=== PATIENT | female | born 1950 | race Caucasian/White ===

== ENCOUNTER 2023-11-16 07:51 | Outpatient (OUT) | payer MEDICARE, SELFPAY ==
--- NOTE | 2023-11-16 | XR_ITS ---
The [address] [address] Patient Name: ALLAN BREEN MRN: [id number] date: 1950 Sex: F Assigned Patient Location: [facility] Current Patient Location: [facility] Accession/Order Number: [id number] Exam Date: 11/16/2023 08:15 Report Date: 11/16/2023 09:40 At the request of: RACHEL FLORES Procedure: XR abdomen 1V EXAMINATION: XR abdomen 1V HISTORY: KIDNEY STONE COMPARISON: No relevant comparison available. FINDINGS: KIDNEY/URETER - RIGHT: 8.7 mm right nephrolith KIDNEY/URETER - LEFT: No visible renal or ureteral calcifications. PELVIS: No visible ureteral calcifications. Right pelvic calcification, a fibroid is favored. BOWEL: No abnormal dilation or deviation. BONES: No acute abnormality. Severe degenerative spondylosis OTHER: Negative. No abnormal gaseous collections. XR/XR abdomen 1V IMPRESSION: 8.7 mm right nephrolith Electronically authenticated by: LIZBET BRADFORD Date: 11/16/2023 09:40
[2023-11-16 08:29] LABS: Anion Gap 11.1; Carbon Dioxide 25.6 mmol/L (21.0-32.0); Chloride 109 mmol/L (98-107); Potassium 3.7 mmol/L (3.5-5.1); Sodium 142 mmol/L (136-145)
== END 2023-11-16 07:52 | disposition home or self-care (01) ==
LOC: RAD 07:59
PROVIDERS: Visit Provider Urology
DX: N20.0 Calculus of kidney (principal); R31.21 Asymptomatic microscopic hematuria; Z68.31 Body mass index [BMI] 31.0-31.9, adult
CPT/HCPCS: 36415; 74018; 80051

== ENCOUNTER 2023-12-18 09:32 | Outpatient (OUT) | payer MEDICARE, SELFPAY ==
--- OUTSIDE RECORDS SUMMARY | 2023-12-18 09:54 | XMS_ITS | CCD ---
Author Organization [facility] Care Team Providers Care Manager Insurance Name Role Phone Medardo Robles Primary Care Provider SANDRA, DR RAMOS Admitting Unavailable MISC, DR AVILA Primary Care Unavailable SANDRA, DR RAMOS Attending Unavailable SANDRA, DR RAMOS Consulting Unavailable MISC, DR AVILA Primary Care Unavailable SANDRA, DR RAMOS Attending Unavailable SANDRA, DR RAMOS Consulting Unavailable SANDRA, DR RAMOS Admitting Unavailable ZIEBER, DR ANDREW Peña Consulting Unavailable Medardo Robles MD Primary Care Provider Medardo Robles MD Primary Care Provider Medardo Robles MD Primary Care Provider Medardo Robles MD Primary Care Provider ADELE ATISH P Admitting Unavailable MEDARDO ROBLES Primary Care Unavailable Medardo Robles MD Primary Care Provider MEDARDO ROBLES Primary Care Physician [phone] XIMENA ARCHULETA Attending Unavailable MEDARDO ROBLES Primary Care Unavailable XIMENA ARCHULETA Attending Unavailable MEDARDO ROBLES Primary Care Unavailable XIMENA ARCHULETA Attending Unavailable MEDARDO ROBLES Primary Care Unavailable MEDARDO ROBLES Primary Care Unavailable SJ KELLY Attending Unavaila ble ADELE, ATISH P Referring Unavailable ADELE, ATISH P Attending Unavailable MEDARDO ROBLES Primary Care Unavailable MEDARDO ROBLES Primary Care Unavailable MEDARDO ROBLES Primary Care Unavailable MEDARDO ROBLES Primary Care Unavailable ADELE, ATISH P Attending Unavailable ADELE, ATISH P Admitting Unavailable TK ROBLESCY L. Primary Care Unavailable RACHEL FLORES Referring Unavailable VERHOFF, MEDARDO L Primary Care Unavailable VIGESAA, KYEL S Referring Unavailable VERHOFF, MEDARDO L Primary Care Unavailable VIGESAA, KYLE S Referring Unavailable VERHOFF, MEDARDO L Primary Care Unavailable CLINGMAN, JESSICA A Referring Unavailable VERHOFF, MEDARDO L Primary Care Unavailable VERHOFF, MEDARDO L Attending Unavailable VERHOFF, MEDARDO L Referring Unavailable VERHOFF, MEDARDO L Primary Care Unavailable VIGESAA, KYLE S Attending Unavailable VIGESAA, KYLE S Referring Unavailable VERHOFF, MEDARDO L Primary Care Unavailable CLINGMAN, JESSICA A Referring Unavailable VERHOFF, MEDARDO L Primary Care Unavailable Rachel FLORES Attending Unavailable Rachel FLORES Attending Unavailable Rachel FLORES Attending Unavailable Allergies Allergy Classification Reported Allergen(s) Allergy Type Date of Onset Reaction(s) Facility (20 sources) Penicillins; Translations: [PENICILLINS] Propensity to adverse reactions to drug 1 Nausea And Vomiting, Unknown (qualifier value) [place], [place] (16 sources) Sulfonamides (Antibiotic) Propensity to adverse reactions to drug 1 Nausea And Vomiting [place], [place] (1 source) Penicillin Drug Allergy 7 [facility] (1 source) Sulfonamides (Antibiotic) Drug allergy (disorder) 7 [facility] (20 sources) Penicillins Propensity to adverse reactions to drug 1 Other (See Comments), Nausea And Vomiting [facility] (20 sources) Sulfonamides (Antibiotic); Translations: [SULFA (SULFONAMIDE ANTIBIOTICS)] Propensity to adverse reactions to drug 1 Other (See Comments), Nausea And Vomiting [facility] (3 sources) Sulfonamides (Antibiotic); Translations: [sulfa drugs] Drug allergy Unknown (qualifier value) [facility] Medications Current Medications Medication Drug Class(es) Dates Sig (Normalized) Sig (Original) alendronic acid 70 mg oral tablet (20 sources) Bisphosphonate Start: 04-14-2019 alendronate 70 mg oral tablet 70 mg = 1 tab(s), Oral, q7day, # 4 tab(s), Refills(s) 0 Start Date: 05/19/19 Status: Ordered allopurinol 100 mg oral tablet (20 sources) Xanthine Oxidase Inhibitor Start: 06-16-2019 End: 09-15-2022 take 1 tablet by mouth once daily allopurinol (ZYLOPRIM) 100 MG tablet TAKE 1 TABLET BY MOUTH EVERY DAY 90 tablet 1 09/01/2022 Active amoxicillin 500 mg oral capsule (1 source) Penicillin-class Antibacterial End: 11-13-2022 take 4 capsules by mouth once, then take 4 capsules by mouth every hour amoxicillin (AMOXIL) 500 MG capsule Take 4 (four) capsules (2,000 mg total) by mouth once Take 4 capsules (2,000 mg) 1 hour prior to dental appointment. . 0 11/13/2022 Discontinued (Allergic response) bepotastine besilate 15 mg/ml ophthalmic solution (2 sources) Histamine-1 Receptor Antagonist Start: 10-20-2020 take 1 drop(s) into the eye(s) twice daily Bepotastine Besilate 1.5 % SOLN 1 drop each eye BID 5 mL 1 10/20/2020 Active cephalexin 500 mg oral capsule (1 source) Cephalosporin Antibacterial End: 11-13-2022 take 4 capsules by mouth every hour cephALEXin (KEFLEX) 500 MG capsule Take 4 (four) capsules (2,000 mg total) by mouth once 1 hour prior to dental work . 0 11/13/2022 Discontinued (Allergic response) ciprofloxacin 500 mg oral tablet (5 sources) Quinolone Antimicrobial Start: 11-03-2022 End: 11-10-2022 take 1 tablet by mouth twice daily ciprofloxacin (CIPRO) 500 MG tablet Take 1 tablet by mouth 2 times daily for 7 days 14 tablet 0 11/03/2022 11/10/2022 Active Start: 08-24-2021 End: 08-31-2021 take 1 tablet by mouth twice daily ciprofloxacin (CIPRO) 500 MG tablet Take 1 tablet by mouth 2 times daily for 7 days 14 tablet 0 08/24/2021 08/31/2021 Active Start: 02-28-2021 End: 03-07-2021 take 1 tablet by mouth twice daily ciprofloxacin (CIPRO) 500 MG tablet Take 1 tablet by mouth 2 times daily for 7 days 14 tablet 0 02/28/2021 03/07/2021 Active Start: 03-08-2020 End: 03-15-2020 take 1 tablet by mouth twice daily ciprofloxacin (CIPRO) 500 MG tablet Indications: Complicated UTI (urinary tract infection) Take 1 tablet by mouth 2 times daily for 7 days 14 tablet 0 03/08/2020 03/15/2020 Active clopidogrel 75 mg oral tablet (17 sources) [id number] Platelet Inhibitor Start: 09-16-2022 End: 03-20-2023 take 1 tablet by mouth once daily clopidogreL (PLAVIX) 75 mg tablet Take 1 (one) tablet (75 mg total) by mouth daily Start: 09/16/22. 30 tablet 3 09/16/2022 03/20/2023 Discontinued (Therapy completed) Start: 09-15-2022 End: 09-15-2022 take 75 mg by mouth once daily 75 mg, Oral, Daily, Fir st dose on Sun09/15/22 at 0900 Start: 08-28-2022 End: 09-15-2022 clopidogreL (PLAVIX) 75 mg t ablet Take 300 mg (4 tablets) the evening prior to your procedure, then take 75 mg (1 tablet) daily starting the morning of your procedure. . 94 tablet 1 08/28/2022 09/15/2022 Discontinued (Stop Taking at Discharge) End: 08-28-2022 take 1 tablet by mouth once daily clopidogreL (PLAVIX) 75 mg tablet Take 1 (one) tablet (75 mg total) by mouth daily . 0 08/28/2022 Discontinued (Reorder (Suppress CancelRx Message to Pharmacy)) colchicine 0.6 mg oral tablet (20 sources) Start: 03-21-2022 take 1 tablet by mouth once daily colchicine (COLCRYS) 0.6 MG tablet Take 1 tablet by mouth daily 20 tablet 1 03/21/2022 Active 24 hr dilTIAZem hydrochloride 120 mg extended release oral capsule (20 sources) Calcium Channel Brice Start: 05-19-2019 Cartia XT 120 mg/24 hours oral capsule, extended release Refills(s) 0 Start Date: 05/19/19 Status: Ordered Start: 07-15-2018 End: 09-15-2022 take 1 capsule by mouth once daily dilTIAZem (CARDIZEM CD) 120 MG extended release capsule TAKE 1 CAPSULE BY MOUTH EVERY DAY 90 capsule 3 01/18/2022 Active doxycycline hyclate 100 mg oral capsule (3 sources) Tetracycline-class Drug Start: 11-13-2022 End: 11-13-2022 take 1 capsule by mouth every hour doxycycline hyclate (VIBRAMYCIN) 100 MG capsule Take 1 (one) capsule (100 mg total) by mouth once 1 hour prior to dental appointment for 1 dose . 1 capsule 0 11/13/2022 11/13/2022 Active Start: 07-11-2021 take 1 capsule by [facility] once daily doxycycline hyclate 100 mg Cap 100 mg = 1 cap(s), Oral, Daily, Take 1 pill the day before the procedure and 1 pill after the procedure, # 2 cap(s), Refills(s) 0, [facility]: [facility], 163, cm, 07/11/21 11:42:00 EST, Height/Length Dosing, 84.1, kg, 07/11/21 11:42:00 E... Start Date: 07/11/21 Status: Ordered hydroCHLOROthiazide 50 mg oral tablet (20 sources) Thiazide Diuretic Start: 11-16-2023 take 1 tablet by mouth once daily hydrochlorothiazide 50 mg Tab 50 mg = 1 tab(s), Oral, Daily, # 90 tab(s), Refills(s) 3, [facility]: [id number], 163, cm, 11/16/23 10:15:00 EDT, Height/Length Dosing, 82.7, kg, 11/16/23 10:15:00 EDT, Weight Dosing Start Date: 11/16/23 Status: Ordered Start: 07-11-2021 take 1 tablet by [facility] once daily hydroCHLOROthiazide (HYDRODIURIL) 50 MG tablet Take 1 tablet by mouth daily 0 10/19/2022 Active Start: 01-11-2015 End: 09-15-2022 take 1 tablet by mouth once daily hydrochlorothiazide 25 mg Tab 25 mg = 1 tab(s), Oral, Daily, # 90 tab(s), Refills(s) 3, [facility]: [facility], 163, cm, 04/04/21 11:03:00 EST, Height/Length Dosing, 84, kg, 04/04/21 11:03:00 EST, Weight Dosing Start Date: 04/04/21 Status: Ordered lisinopril 5 mg oral tablet (20 sources) Angiotensin Converting Enzyme Inhibitor Start: 08-26-2018 End: 09-15-2022 lisinopril 5 mg Tab Refills(s) 0 Start Date: 05/19/19 Status: Ordered 24 hr metoprolol succinate 50 mg extended release oral tablet (20 sources) beta-Adrenergic Brice Start: 05-19-2019 take 1 tablet by mouth twice daily metoprolol 50 mg ER Tab 50 mg = 1 tab(s), Oral, BID, Refills(s) 0 Start Date: 05/19/19 Status: Ordered Start: 02-17-2019 End: 09-15-2022 take 1 tablet by mouth twice daily metoprolol tartrate (LOPRESSOR) 50 MG tablet TAKE 1 TABLET BY MOUTH TWO TIMES A DAY 180 tablet 0 08/07/2022 Active rivaroxaban 20 mg oral tablet (20 sources) Factor Xa Inhibitor Start: 07-26-2021 take 1 tablet by mouth once daily at breakfast rivaroxaban (XARELTO) 20 MG TABS tablet TAKE ONE TABLET BY MOUTH DAILY WITH BREAKFAST 90 tablet 3 07/26/2021 Active Start: 04-18-2021 take 1 tablet by [facility]pe [facility] once daily at breakfast rivaroxaban (XARELTO) 20 MG TABS tablet TAKE ONE TABLET BY MOUTH DAILY WITH BREAKFAST 90 tablet 0 04/18/2021 Active Start: 01-14-2021 take 1 tablet by lupe th once daily at breakfast rivaroxaban (XARELTO) 20 MG TABS tablet TAKE 1 TABLET BY MOUTH EVERY DAY WITH BREAKFAST 90 tablet 0 01/14/2021 Active Start: 08-12-2019 take 1 tablet by lupe th once daily at breakfast rivaroxaban (XARELTO) 20 MG TABS tablet TAKE 1 TABLET BY MOUTH ONCE A DAY WITH BREAKFAST 90 tablet 3 08/12/2019 Active Start: 04-18-2018 take 1 tablet by lupe th once daily at breakfast rivaroxaban (XARELTO) 20 MG TABS tablet TAKE 1 TABLET BY MOUTH ONCE A DAY WITH BREAKFAST 30 tablet 1 04/21/2019 Active End: 09-15-2022 take 1 tablet by mouth once rivaroxaban (Xarelto) 15 m g Tab Take 1 (one) tablet (15 mg total) by mouth once . 0 09/15/2022 Discontinued (Stop Taking at Discharge) vitamin d 1000 unt oral tablet (4 sources) take 1 tablet by lupe [facility] once daily vitamin D (CHOLECALCIFEROL) 1000 UNIT TABS tablet Take 1,000 Units by mouth daily. 0 Active Completed/Discontinued Medications Medication Drug Class(es) Dates Sig (Normalized) Sig (Original) acetaminophen 325 mg oral tablet (1 source) Start: 09-14-2022 End: 09-15-2022 take 1 tablet by mouth every four hours as needed for pain and headache 650 mg, Oral, Every 4 hours PRN, mild pain, fever 100.4 F or greater, headaches, Starting on Sun09/14/22 at 1517 aluminum hydroxide 40 mg/ml / magnesium hydroxide 40 mg/ml / simethicone 4 mg/ml oral suspension (1 source) Start: 09-14-2022 End: 09-15-2022 take 30 mL by mouth every four hours as needed 30 mL, Oral, Every 4 hours PRN, indigestion, Starting on Sun09/14/22 at 1517 aspirin 81 mg delayed release oral tablet (20 sources) Platelet Aggregation Inhibitor, Nonsteroidal Anti-inflammatory Drug Start: 09-15-2022 End: 09-15-2022 take 81 mg by mouth once daily 81 mg, Oral, Daily, First dose on Sun09/15/22 at 0900 DO NOT CRUSH OR CHEW. Start: 05-19-2019 aspirin 81 mg oral tablet Refills(s) 0 Start Date: 05/19/19 Status: Ordered calcium chloride 0.0014 meq/ml / potassium chloride 0.004 meq/ml / sodium chloride 0.103 meq/ml / sodium lactate 0.028 meq/ml injectable solution (1 source) Start: 09-14-2022 End: 09-15-2022 take 50 mL intravenously every hour 50 mL/hr, Intravenous, Continuous, Starting on Sun09/14/22 at 1515, PACU (only) cholecalciferol 0.025 mg oral tablet (20 sources) Vitamin D Start: 09-14-2022 End: 09-15-2022 take 1000 [IU] by mouth once daily 1,000 Units, Oral, Daily, First dose on Sun09/14/22 at 1700 50 ml clindamycin 18 mg/ml injection (2 sources) Lincosamide Antibacterial Start: 09-14-2022 End: 09-14-2022 900 mg, Intravenous, at 100 mL/hr, Once, On Emily 09/14/22 at 1700, For 1 dose Initiate 6 hours after start of pre-procedure dose. Indication (POST PROCEDURE): Cardiothoracic Start: 09-14-2022 End: 09-15-2022 clindamycin (CLEOCIN) IVPB 9 00 mg (premix) K-Effervescent 25 mEq oral tablet, effervescent (1 source) Start: 11-16-2023 take 1 tablet by mouth twice daily K-Effervescent 25 mEq oral tablet, effervescent 25 mEq = 1 tab(s), Oral, BID, MELVIN, # 60 tab(s), Refills(s) 11, Pharmacy: [id number], 163, cm, 11/16/23 10:15:00 EDT, Height/Length Dosing, 82.7, kg, 11/16/23 10:15:00 EDT, Weight Dosing Start Date: 11/16/23 Status: Ordered potassium bicarbonate 20 meq effervescent oral tablet (1 source) Start: 11-01-2021 take 1 tablet by mouth twice daily potassium bicarbonate 20 mEq oral tablet, effervescent 20 mEq = 1 tab(s), Oral, BID, # 60 tab(s), Refills(s) 11, Pharmacy: [facility], 163, cm, 07/26/21 10:30:00 EST, Height/Length Dosing, 84.1, kg, 07/11/21 11:42:00 EST, Weight Dosing Start Date: 11/01/21 Status: Ordered microencapsulated potassium chloride 20 meq extended release oral tablet (20 sources) Start: 01-18-2022 End: 09-15-2022 20 mEq, Oral, Daily, First dose on Emily 09/14/22 at 1700 DO NOT CRUSH OR CHEW (if instructed may dissolve tablet(s) in liquid) DO NOT ADMINISTER DISSOLVED TABLET VIA SURGICALLY PLACED TUBE OR TUBE less than 14 [place]. To administer dissolved tablet(s) mix with 4 ounces of water over 2-3 minutes, stir for 30 seconds prior to administration; rinse dosing cup and administer residual medication to ensure full dose given Start: 04-18-2021 take 1 tablet by lupe [facility] once daily potassium chloride (KLOR-CON M) 20 MEQ extended release tablet TAKE 1 TABLET BY MOUTH EVERY DAY 90 tablet 0 07/14/2021 Active Start: 01-14-2021 take 1 tablet by lupe [facility] once daily potassium chloride (KLOR-CON M) 20 MEQ extended release tablet TAKE 1 TABLET BY MOUTH EVERY DAY 90 tablet 0 01/14/2021 Active Start: 08-12-2019 take 1 tablet by [facility]pe [facility] once daily potassium chloride (KLOR-CON M) 20 MEQ extended release tablet TAKE 1 TABLET BY MOUTH ONE TIME A DAY 90 tablet 3 08/12/2019 Active Start: 09-12-2018 take 1 tablet by lupe th once daily potassium chloride (KLOR-CON M) 20 MEQ extended release tablet TAKE 1 TABLET BY MOUTH ONE TIME A DAY 30 tablet 10 09/12/2018 Active End: 09-07-2023 take 1 tablet by mouth every other day potassium chloride SA (K-DUR,KLOR-CON) 20 MEQ tablet Take 1 (one) tablet (20 mEq total) by mouth every other day . 0 09/07/2023 Discontinued (Formulary change) take 1 tablet by lupe th twice daily potassium chloride SA (K-DUR,KLOR-CON) 20 MEQ tablet Take 1 (one) tablet (20 mEq total) by mouth 2 (two) times a day . 0 Active 1000 ml sodium chloride 9 mg/ml injection (3 sources) Start: 09-14-2022 End: 09-15-2022 take 75 mL intravenously every hour 75 mL/hr, Intravenous, Continuous, Starting on Emily 09/14/22 at 1615, For 4 hours Start: 09-14-2022 End: 09-15-2022 sodium chloride 0.9% (NS) Problems Active Problems Problem Classification Problem Date Documented Date Episodic/Chronic Calculus of urinary tract (20 sources) Kidney stone; Translations: [Calculus of kidney] Onset: 12-28-2010 12-28-2010 Episodic Cardiac dysrhythmias (20 sources) Atrial fibrillation; Translations: [Unspecified atrial fibrillation] Onset: 12-28-2010 Resolved: 06-15-2016 12-28-2010 Chronic Chronic kidney disease (7 sources) Chronic kidney disease stage 5; Translations: [Chronic kidney disease, stage 5] Onset: 10-20-2020 Resolved: 10-20-2020 10-20-2020 Chronic Disorders of lipid metabolism (20 sources) Hyperlipidemia; Translations: [Hyperlipidemia, unspecified] Onset: 12-28-2010 12-28-2010 Chronic Diverticulosis and diverticulitis (17 sources) Diverticular disease; Translations: [Diverticulosis of intestine, part unspecified, without perforation or abscess without bleeding] Onset: 06-14-2015 06-14-2015 Chronic Essential hypertension (20 sources) Hypertensive disorder; Translations: [Essential hypertension] Onset: 12-28-2010 Resolved: 05-12-2015 05-12-2015 Chronic Genitourinary symptoms and ill-defined conditions (11 sources) Dysuria; Translations: [Dysuria] Onset: 04-09-2021 Episodic Heart valve disorders (20 sources) Mitral valve regurgitation; Translations: [Nonrheumatic mitral (valve) insufficiency] Onset: 12-04-2013 12-04-2013 Chronic Nutritional deficiencies (20 sources) Vitamin D deficiency; Translations: [Vitamin D deficiency, unspecified] Onset: 09-29-2016 09-29-2016 Chronic Osteoporosis (17 sources) Osteoporosis; Translations: [Age-related osteoporosis without current pathological fracture] Onset: 05-12-2015 05-12-2015 Chronic Other aftercare (2 sources) Long-term current use of anticoagulant 04-02-2020 Episodic Other circulatory disease (7 sources) Device in situ; Translations: [Presence of other cardiac implants and grafts] Onset: 09-14-2022 09-14-2022 Chronic Other circulatory disease (9 sources) Presence of other cardiac implants and grafts; Translations: [Other specified cardiac device in situ] Onset: 09-14-2022 09-14-2022 Chronic Other diseases of kidney and ureters (1 source) Acquired renal cyst without neoplastic change; Translations: [Cyst of kidney, acquired] Onset: 11-17-2022 Episodic Other diseases of kidney and ureters (2 sources) Cyst of kidney 11-17-2022 Episodic Other nutritional; endocrine; and metabolic disorders (1 source) Obese class I; Translations: [Body mass index (BMI) 31.0-31.9, adult] Onset: 11-17-2022 Chronic Other nutritional; endocrine; and metabolic disorders (2 sources) Body mass index 30+ - obesity 11-17-2022 Chronic Residual codes; unclassified (1 source) Patient encounter status; Translations: [Other specified health status] Onset: 11-17-2022 Episodic Unclassified (2 sources) Asymptomatic microscopic hematuria 04-02-2020 Unclassified (2 sources) Long-term current use of aspirin 04-02-2020 Unclassified (2 sources) Non-smoker 11-17-2022 Unclassified (4 sources) Chronic atrial fibrillation, unspecified; Translations: [Chronic atrial fibrillation, unspecified] Onset: 11-06-2022 Urinary tract infections (7 sources) Urinary tract infectious disease; Translations: [Urinary tract infection, site not specified] Onset: 12-28-2010 01-25-2015 Episodic Urinary tract infections (9 sources) Sepsis due to urinary tract infection; Translations: [Sepsis due to urinary tract infection] Onset: 12-28-2010 01-25-2015 Past or Other Problems Problem Classification Problem Date Documented Da te Episodic/Chronic Anal and rectal conditions (17 sources) Rectal polyp; Translations: [Rectal polyp] Onset: 06-14-2015 06-14-2015 Episodic Cardiac dysrhythmias (17 sources) Palpitations; Translations: [Palpitations] Resolved: 05-08-2016 05-08-2016 Episodic Nonmalignant breast conditions (20 sources) Solitary cyst of breast; Translations: [Atypical hyperplasia of breast] Onset: 11-11-2012 11-11-2012 Episodic Other aftercare (1 source) [facility] (current) use of anticoagulants; Translations: [DUPLICATE MAKER CURRNT USE ANTICOAGULANTS] Onset: 04-09-2021 Episodic Other connective tissue disease (1 source) Pain in toe Episodic Other screening for suspected conditions (not mental disorders or infectious disease) (13 sources) Increased glucose level; Translations: [Patient encounter status] Onset: 06-14-2015 Resolved: 02-14-2018 02-14-2018 Episodic Septicemia (except in labor) (7 sources) Sepsis due to urinary tract infection; Translations: [Sepsis, unspecified organism] Onset: 12-28-2010 Resolved: 11-03-2022 01-25-2015 Episodic Unclassified (10 sources) Patient encounter status; Translations: [Encounter for screening colonoscopy] Onset: 06-14-2015 Resolved: 02-14-2018 02-14-2018 Results Test Name Value Interpretation Reference Range Facility Ambulatory Visit Summaryon 0 11-16-2023 Ambulatory Visit Summary Ambulatory Visit Summary SAPNA BREEN :1950 Visit Date:11/16/2023 Ambulatory Visit Instructions Your Diagnosis Kidney stone Your Care Team Attending Physician - SANDRA SAMSON, Rachel Peña Primary Care Physician - CONNER SAMSON, MEDARDO Rubio This Is Your Medications List hydrochlorothiazide (hydrochlorothiazide 50 mg Tab) potassium chloride (Klor-Con 20 mEq oral powder for reconstitution) Contact prescribing physician if questions or concerns alendronate (alendronate 70 mg oral tablet) aspirin (aspirin 81 mg oral tablet) diltiazem (Cartia XT 120 mg/24 hours oral capsule, extended release) lisinopril (lisinopril 5 mg Tab) metoprolol (metoprolol 50 mg ER Tab) Procedures Performed Procedure on heart valve (09/14/2021), Lithotripsy of kidney (05/21/2010), Cystoscopy, ESWL of kidney, ESWL of kidney, Watchman. Discharge Vitals Heart Rate (Peripheral) 80 Respiratory Rate 16 Blood Pressure 138/83 Height 163 cm Height 64 in Weight 82.7 kg Weight 181.94 lb BMI 31.13 What to do next You Need to Schedule the Following Appointments Follow Up with SANDRA SAMSON, Rachel Peña, [place] When: Where: [address] [place] [address]- Medications What How Much When Instructions Unchanged hydrochlorothiazide (hydrochlorothiazide 50 mg Tab) 1 Tablets By Mouth Every day Unchanged potassium chloride (Klor-Con 20 mEq oral powder for reconstitution) 1 Each By Mouth 2 times a day Duration: 30 Days Unchanged alendronate (alendronate 70 mg oral tablet) 1 Tablets By Mouth Every 7 days Contact prescribing physician if questions or concerns Unchanged aspirin (aspirin 81 mg oral tablet) Contact prescribing physician if questions or concerns Unchanged diltiazem (Cartia XT 120 mg/ 24 hours oral capsule, extended release) Contact prescribing physician if questions or concerns Unchanged lisinopril (lisinopril 5 mg Tab) Contact prescribing physician if questions or concerns Unchanged metoprolol (metoprolol 50 mg ER Tab) 1 Tablets By Mouth 2 times a day Contact prescribing physician if questions or concerns Allergies penicillins (Unknown) sulfa drugs (Unknown) Problems Ongoing - Any problem that you are currently receiving treatment for. Anticoagulant long-term use Aspirin long-term use Asymptomatic microscopic hematuria Atrial fibrillation BMI 31.0-31.9,adult Gross hematuria Kidney stone Non-smoker Renal cyst UTI (urinary tract infection) Patient Survey You may receive a survey via text or e-mail asking about your office visit. Please share your experience with us by completing your survey. We appreciate your feedback and thank you for choosing us for your care. Education Materials Dietary Guidelines to Help Prevent Kidney Stones Kidney stones are deposits of minerals and salts that form inside your kidneys. Your risk of developing kidney stones may be greater depending on your diet, your lifestyle, the medicines you take, and whether you have certain medical conditions. Most people can lower their risks of developing kidney stones by following these dietary guidelines. Your dietitian may give you more specific instructions depending on your overall health and the type of kidney stones you tend to develop. What are tips for following this plan? Reading food labels ? Choose foods with no salt added or low-salt labels. Limit your salt (sodium) intake to less than 1,500 mg a day. ? Choose foods with calcium for each meal and snack. Try to eat about 300 mg of calcium at each meal. Foods that contain 200?500 mg of calcium a serving include: ? 8 oz (237 mL) of milk, [id number] iry milk, and calcium-fortifiedfruit juice. Calcium-fortified means that calcium has been added to these drinks. ? 8 oz (237 mL) of kefir, yogurt, and soy yogurt. ? 4 oz (114 g) of tofu. ? 1 oz (28 g) of cheese. ? 1 cup (150 g) of dried figs. ? 1 cup (91 g) of cooked broccoli. ? One 3 oz (85 g) can of sardines or mackerel. Most people need 1,000?1,500 mg of calcium a day. Talk to your dietitian about how much calcium is recommended for you. Shopping ? Buy plenty of fresh fruits and vegetables. Most people do not need to avoid fruits and vegetables, even if these foods contain nutrients that may contribute to kidney stones. ? When shopping for convenience foods, choose: ? Whole pieces of fruit. ? Pre-made salads with dressing on the side. ? Low-fat fruit and yogurt smoothies. ? Avoid buying frozen meals or prepared deli foods. These can be high in sodium. ? Look for foods with live cultures, such as yogurt and kefir. ? Choose high-fiber grains, such as whole-wheat breads, oat bran, and wheat cereals. Cooking ? Do not add salt to food when cooking. Place a salt shaker on the table and allow each person to add their own salt to taste. ? Use vegetable protein, such as beans, textured (more content not included)... Normal [facility] Urology Office/Clinic Noteon 11-16-2023 Urology Office/Clinic Note Urology Office/Clinic Note Chief Complaint 1yr HPI Staff 1yr KUB & Electrolytes DX: Kidney Stone & Renal Cyst *Started on Effer K 25meq (Klor Con 20meq sent to pharmacy) BID at time of last encounter. Continues HCTZ 50mg qd therapy. Denies flank pain since last encounter. Denies urinary sx. No concerns at this time, other than reviewing results. Electrolytes 11/16/23 *elevated CL. All others WNL KUB 11/16/23 *8.7 mm Rt Kidney Stone History of Present Illness Tests reviewed: reviewed UA, labs, and KUB. I have reviewed the previous health record information and history for this patient from Dr. Flores. I have reviewed and verified the staff HPI to be accurate for this encounter. There have been no associated fever, chills, flank pain, or blood in the urine. Denies any urinary infections since last encounter. Review of Systems PHQ Score Initial Depression Screen Score: 0 SCORE ROS - Provider Constitutional: denies weight loss, denies hot flashes. Eyes: denies eye problems. Gastrointestinal: denies nausea, denies vomiting. Cardiovascular: denies chest pain or angina. Integumentary: no dryness Musculoskeletal: denies musculoskeletal symptoms. ENMT: denies otolaryngeal symptoms. Respiratory: no shortness of breath. Heme/Lymph: denies easy bleeding tendency, denies easy bruising tendency. Psychiatric: no confusion, no anxiety. Genitourinary: See HPI. Physical Exam Vitals & Measurements HR: 80(Peripheral) RR: 16 BP: 138/83 HT: 64 in HT: 163 cm WT: 82.7 kg WT: 181.94 lb BMI: 31.13 General Appearance: alert , no acute distress, well nourished, well developed female. Assessment/Plan 1. Kidney stone (N20.0: Calculus of kidney) Taking HCTZ 50mg qd. Pt has been prescribed Effer-K 25mEq bid in the past but did not pick it up due to cost. Advised pt at last visit to use a Good Rx card. Insurance would not cover so pt was switched to Klor-Con 20 mEq bid (powder). Electrolytes 11/16/23 Na and K normal. After checking gray on GoodRx for Effer-K 25mEq bid at [place], it should only be $15-16. Will switch pt back to Effer-K 25mEq bid for appropriate stone prevention. Reports she tries to drink enough water, unsure of volume. CT AP w IV con 07/13/21 [facility] - no large or obstructing urinary tract calculi. KUB 11/16/23 [facility] - 8.7 mm R stone. Surgical management is recommended given the size. Pt elects to proceed. Will schedule R ESWL. -D/c Klor-Con -Start Effer-K 25mEq bid MELVIN, use GoodRx -90oz of water daily -Will schedule R ESWL. The procedure risks, benefits, details and treatment alternatives have been discussed with the patient. These include blood in the urine, infection, bleeding around the kidney, kidney bruising, inability to break up the stone, need for blood transfusion, blockage from stone fragments, and need for additional procedures, among others. Full informed consent has been obtained. Will order General anesthesia. Follow-up With When Contact Information SANDRA SAMSON, Rachel Peña, [place] [phone]- Additional Instructions: Sched R ESWL Patient Education Dietary Guidelines to Help Prevent Kidney Stones IKristina, personally scribed for Dr. Flores on 11/16/2023 10:53:52. . Documentation recorded by the scribeKristina, accurately reflects the services(s) I performed and decisions made by me. Authenticated by Dr. Flores on 11/16/2023 10:58:37. Problem List/Past Medical History Ongoing Anticoagulant long-term use Aspirin long-term use Asymptomatic microscopic hematuria Atrial fibrillation BMI 31.0-31.9,adult Gross hematuria Kidney stone Non-smoker Renal cyst UTI (urinary tract infection) Historical No qualifying data Procedure/Surgical History Procedure on heart valve (09/14/2021), Lithotripsy of kidney (05/21/2010), Cystoscopy, ESWL of kidney, ESWL of kidney, Watchman. Medications alendronate 70 mg oral tablet, 70 mg= 1 tab(s), Oral, q7day aspirin 81 mg oral tablet Cartia XT 120 mg/24 hours oral capsule, extended release hydrochlorothiazide 50 mg Tab, 50 mg= 1 tab(s), Oral, Daily, 11 refills Klor-Con 20 mEq oral powder for reconstitution, 20 mEq= 1 EA, Oral, BID, 11 refills lisinopril 5 mg Tab metoprolol 50 mg ER Tab, 50 mg= 1 tab(s), Oral, BID Allergies penicillins (Unknown) sulfa drugs (Unknown) Social History Alcohol - Denies Alcohol Use, 04/02/2020 Tobacco - Denies Tobacco Use, 04/02/2020 Never (less than 100 in lifetime) Tobacco Use:. Never Smokeless Tobacco Use:. Household tobacco concerns: No. Yes, 11/16/2023 Family History Unable to obtain family history Immunizations Vaccine Date Status Comments diphtheria/pertussis, acel/tetanus adult 06/30/2022 Recorded influenza virus vaccine, inactivated 02/16/2022 Recorded SARS-CoV-2 (COVID-19) [id number] 02/16/2022 Recorded pneumococcal 20-valent co (more content not included)... Normal [facility] Comment on above: Result Comment: Elec tronically Signed By: Rachel FLORES MD\.br\Date and Time Signed: 11/16/23 10:58 EDT\.br\Electronically Co-Signed By: Kristina Raymundo.br\Date and Time Co-Signed: 11/16/23 10:54 EDT Cult,Urineon 11-08-2023 Cult,Urine Specimen Description .CLEAN CATCH URINE Special Requests Site: Urine Culture ESCHERICHIA COLI >100,000 CFU/ML Report Status FINAL 11/08/2023 SUSCEPTIBILITY Organism ESCHERICHIA COLI Method NANCY Ampicillin >=32 RESISTANT Cefazolin 8 SUSCEPTIBLE Cefazolin sensitivity results can be used to predict the effectiveness of oral cephalosporins (eg. Cephalexin) in uncomplicated Urinary Tract Infections due to E. coli, K. pneumoniae, and P. mirabilis Ceftriaxone <=0.25 SUSCEPTIBLE ESBL NEGATIVE Gentamicin >=16 RESISTANT Levofloxacin <=0.12 SUSCEPTIBLE Nitrofurantoin <=16 SUSCEPTIBLE Piperacillin/Tazobactam 64 INTERMEDIATE Tobramycin 4 SUSCEPTIBLE Trimethoprim/Sulfa >=320 RESISTANT Resistant [facility] Comment on above: Performed By: #### U RC #### [address] [address] [place], [place] [id number] Sewing Machine Operator: Drew Craven MD [facility] [address] [place] [address] Sewing Machine Operator: Lazarus Gan MD Cult,Urineon 10-07-2023 Cult,Urine Specimen Description .CLEAN CATCH URINE Culture ESCHERICHIA COLI >100,000 CFU/ML Report Status FINAL 10/07/2023 SUSCEPTIBILITY Organism ESCHERICHIA COLI Method NANCY Ampicillin >=32 RESISTANT Cefazolin 8 SUSCEPTIBLE Cefazolin sensitivity results can be used to predict the effectiveness of oral cephalosporins (eg. Cephalexin) in uncomplicated Urinary Tract Infections due to E. coli, K. pneumoniae, and P. mirabilis Ceftriaxone <=0.25 SUSCEPTIBLE ESBL NEGATIVE Gentamicin >=16 RESISTANT Levofloxacin <=0.12 SUSCEPTIBLE Nitrofurantoin <=16 SUSCEPTIBLE Piperacillin/Tazobactam 32 INTERMEDIATE Tobramycin 2 SUSCEPTIBLE Trimethoprim/Sulfa >=320 RESISTANT Resistant [facility] Comment on above: Performed By: #### U RC #### [address] [id number] Sewing Machine Operator: Drew Craven MD [facility] [address] [phone] Sewing Machine Operator: Lazarus Gan MD CBC with Diffon 04-09-2023 Abs. Basophil 0.01 k/uL Normal 0.00-0.20 [facility] Comment on above: Performed By: #### C P, ZFAST, MG, CDP, TSHX #### [facility] [address] [place] [address] Sewing Machine Operator: Lazarus Gan MD #### LIPR #### [address] [phone] Sewing Machine Operator: Drew Craven MD Abs.Imm.Granulocyte 0.01 k/uL Normal 0.00-0.30 [facility] Comment on above: Performed By: #### C P, ZFAST, MG, CDP, TSHX #### [facility] [address] [phone] Sewing Machine Operator: Lazarus Gan MD #### LIPR #### [address] [id number] Sewing Machine Operator: Drew Craven MD Abs.Neutrophil (Seg) 1.71 k/uL Low 2.5-7.0 [facility] Comment on above: Performed By: #### C P, ZFAST, MG, CDP, TSHX #### [facility] [address] [phone] Sewing Machine Operator: Lazarus Gan MD #### LIPR #### [address] [id number] Sewing Machine Operator: Drew Craven MD Basophils/100 WBC (Bld) 0 % Normal 0-2 [facility] Comment on above: Performed By: #### C P, ZFAST, MG, CDP, TSHX #### [facility] [address] [phone] Sewing Machine Operator: Lazarus Gan MD #### LIPR #### [address] [id number] Sewing Machine Operator: Drew Craven MD Eosinophils (Bld) [#/Vol] 0.09 10*3/uL Normal 0.00-0.40 [facility] Comment on above: Performed By: #### C P, ZFAST, MG, CDP, TSHX #### [facility] [address] [phone] Sewing Machine Operator: Lazarus Gan MD #### LIPR #### [address] [place], [place] [phone] Sewing Machine Operator: Drew Craven MD Eosinophils/100 WBC (Bld) 3 % Normal 0-5 [facility] Comment on above: Performed By: #### C P, ZFAST, MG, CDP, TSHX #### [facility] [address] [phone] Sewing Machine Operator: Lazarus Gan MD #### LIPR #### [address] [id number] Sewing Machine Operator: Drew Craven MD Erythrocyte distribution width (RBC) [Ratio] 13.5 % Normal 12.1-15.2 [facility] Comment on above: Performed By: #### C P, ZFAST, MG, CDP, TSHX #### [facility] [address] [phone] Sewing Machine Operator: Lazarus Gan MD #### LIPR #### [address] [phone] Sewing Machine Operator: Drew Craven MD Hematocrit (Bld) [Volume fraction] 39.6 % Normal 36.0-46.0 [facility] Comment on above: Performed By: #### C P, ZFAST, MG, CDP, TSHX #### [facility] [address] [place] [address] Sewing Machine Operator: Lazarus Gan MD #### LIPR #### [address] [phone] Sewing Machine Operator: Drew Craven MD Hemoglobin (Bld) [Mass/Vol] 13.0 g/dL Normal 12.0-16.0 [facility] Comment on above: Performed By: #### C P, ZFAST, MG, CDP, TSHX #### [facility] [address] [place] [address] Sewing Machine Operator: Lazarus Gan MD #### LIPR #### [address] [id number] Sewing Machine Operator: Drew Craven MD Immature granulocytes/100 WBC (Bld) 0 % Normal 0-5 [facility] Comment on above: Performed By: #### C P, ZFAST, MG, CDP, TSHX #### [facility] [address] [phone] Sewing Machine Operator: Lazarus Gan MD #### LIPR #### [address] [phone] Sewing Machine Operator: Drew Craven MD Lymphocytes (Bld) [#/Vol] 1.25 10*3/uL Normal 1.00-4.80 [facility] Comment on above: Performed By: #### C P, ZFAST, MG, CDP, TSHX #### [facility] [address] [place] [address] Sewing Machine Operator: Lazarus Gan MD #### LIPR #### [address] [id number] Sewing Machine Operator: Drew Craven MD Lymphocytes/100 WBC (Bld) 36 % Normal 15-40 [facility] Comment on above: Performed By: #### C P, ZFAST, MG, CDP, TSHX #### [facility] [address] [place] [address] Sewing Machine Operator: Lazarus Gan MD #### LIPR #### [address] [id number] Sewing Machine Operator: Drew Craven MD MCH (RBC) [Entitic mass] 30.8 pg Normal 26.0-34.0 [facility] Comment on above: Performed By: #### C P, ZFAST, MG, CDP, TSHX #### [facility] [address], [place] [phone] Sewing Machine Operator: Lazarus Gan MD #### LIPR #### [address] [phone] Sewing Machine Operator: Drew Craven MD MCHC (RBC) [Mass/Vol] 32.8 g/dL Normal 31.0-37.0 [facility] Comment on above: Performed By: #### C P, ZFAST, MG, CDP, TSHX #### [facility] [address] [phone] Sewing Machine Operator: Lazarus Gan MD #### LIPR #### [address] [phone] Sewing Machine Operator: Drew Craven MD MCV (RBC) [Entitic vol] 93.8 fL Normal 80.0-100.0 [facility] Comment on above: Performed By: #### C P, ZFAST, MG, CDP, TSHX #### [facility] [address] [place] [address] Sewing Machine Operator: Lazarus Gan MD #### LIPR #### [address] [phone] Sewing Machine Operator: Drew Craven MD Monocytes (Bld) [#/Vol] 0.40 10*3/uL Normal 0.00-1.00 [facility] Comment on above: Performed By: #### C P, ZFAST, MG, CDP, TSHX #### [facility] [address] [place] [address] Sewing Machine Operator: Lazarus Gan MD #### LIPR #### [address] [phone] Sewing Machine Operator: Drew Craven MD Monocytes/100 WBC (Bld) 12 % High 4-8 [facility] Comment on above: Performed By: #### C P, ZFAST, MG, CDP, TSHX #### [facility] [address], [place] [phone] Sewing Machine Operator: Lazarus Gan MD #### LIPR #### [address] [place], [place] 1860[address] Sewing Machine Operator: Drew Craven MD Neutrophil (Seg) 49 % Normal 47-75 [facility] Comment on above: Performed By: #### C P, ZFAST, MG, CDP, TSHX #### [facility] [address], [place] [phone] Sewing Machine Operator: Lazarus Gan MD #### LIPR #### [address] [phone] Sewing Machine Operator: Drew Craven MD Platelet mean volume (Bld) [Entitic vol] 9.9 fL Normal 6.0-12.0 [facility] Comment on above: Performed By: #### C P, ZFAST, MG, CDP, TSHX #### [facility] [address], [place] [phone] Sewing Machine Operator: Lazarus Gan MD #### LIPR #### [address] [phone] Sewing Machine Operator: Drew Craven MD Platelets (Bld) [#/Vol] 191 10*3/uL Normal 140-450 [facility] Comment on above: Performed By: #### C P, ZFAST, MG, CDP, TSHX #### [facility] [address], [place] [phone] Sewing Machine Operator: Lazarus Gan MD #### LIPR #### [address] [phone] Sewing Machine Operator: Drew Craven MD RBC (Bld) [#/Vol] 4.22 10*6/uL Normal 4.00-5.20 [facility] Comment on above: Performed By: #### C P, ZFAST, MG, CDP, TSHX #### [facility] [address], [place] [phone] Sewing Machine Operator: Lazarus Gan MD #### LIPR #### [address] [phone] Sewing Machine Operator: Drew Craven MD WBC (Bld) [#/Vol] 3.5 10*3/uL Normal 3.5-11.0 [facility] Comment on above: Performed By: #### C P, ZFAST, MG, CDP, TSHX #### [facility] [address], [place] [phone] Sewing Machine Operator: Lazarus Gan MD #### LIPR #### [address] [id number] Sewing Machine Operator: Drew Craven MD Comp Metabolic Profon 2022 Albumin [Mass/Vol] 4.0 g/dL Normal 3.5-5.2 [facility] Comment on above: Performed By: #### C P, ZFAST, MG, CDP, TSHX #### [facility] [address], [place] [id number] Sewing Machine Operator: Lazarus Gan MD #### LIPR #### [address] [address] Sewing Machine Operator: Drew Craven MD Alkaline Phos 63 U/L Normal 35-104 [facility] Comment on above: Performed By: #### C P, ZFAST, MG, CDP, TSHX #### [facility] [address], [place] [phone] Sewing Machine Operator: Lazarus Gan MD #### LIPR #### [address] [phone] Sewing Machine Operator: Drew Craven MD ALT [Catalytic activity/Vol] 43 U/L High 5-33 [facility] Comment on above: Performed By: #### C P, ZFAST, MG, CDP, TSHX #### [facility] [address], [place] [phone] Sewing Machine Operator: Lazarus Gan MD #### LIPR #### [address] [phone] Sewing Machine Operator: Drew Craven MD Anion gap [Moles/Vol] 9 mmol/L Normal 9-17 [facility] Comment on above: Performed By: #### C P, ZFAST, MG, CDP, TSHX #### [facility] [address], [place] [id number] Sewing Machine Operator: Lazarus Gan MD #### LIPR #### [address] [phone] Sewing Machine Operator: Drew Craven MD AST [Catalytic activity/Vol] 29 U/L Normal <32 [facility] Comment on above: Performed By: #### C P, ZFAST, MG, CDP, TSHX #### [facility] [address], [place] [phone] Sewing Machine Operator: Lazarus Gan MD #### LIPR #### [address] [phone] Sewing Machine Operator: Drew Craven MD Bilirubin [Mass/Vol] 0.6 mg/dL Normal 0.3-1.2 [facility] Comment on above: Performed By: #### C P, ZFAST, MG, CDP, TSHX #### [facility] [address], [place] [phone] Sewing Machine Operator: Lazarus Gan MD #### LIPR #### [address] [phone] Sewing Machine Operator: Drew Craven MD BUN/CRE Ratio 20 Normal 9-20 [facility] Comment on above: Performed By: #### C P, ZFAST, MG, CDP, TSHX #### [facility] [address], [place] [phone] Sewing Machine Operator: Lazarus Gan MD #### LIPR #### [address] [phone] Sewing Machine Operator: Drew Craven MD Calcium [Mass/Vol] 10.0 mg/dL Normal 8.6-10.4 [facility] Comment on above: Performed By: #### C P, ZFAST, MG, CDP, TSHX #### [facility] [address], [place] [phone] Sewing Machine Operator: Lazarus Gan MD #### LIPR #### [address] [phone] Sewing Machine Operator: Drew Craven MD Chloride [Moles/Vol] 106 mmol/L Normal 98-107 [facility] Comment on above: Performed By: #### C P, ZFAST, MG, CDP, TSHX #### [facility] [address], [place] [phone] Sewing Machine Operator: Lazarus Gan MD #### LIPR #### [address] [phone] Sewing Machine Operator: Drew Craven MD CO2 [Moles/Vol] 24 mmol/L Normal 20-31 [facility] Comment on above: Performed By: #### C P, ZFAST, MG, CDP, TSHX #### [facility] [address], [place] [phone] Sewing Machine Operator: Lazarus Gan MD #### LIPR #### [address] [id number] Sewing Machine Operator: Drew Craven MD Creatinine [Mass/Vol] 0.7 mg/dL Normal 0.5-0.9 [facility] Comment on above: Performed By: #### C P, ZFAST, MG, CDP, TSHX #### [facility] [address] [place], [place] [phone] Sewing Machine Operator: Lazarus Gan MD #### LIPR #### [address] [phone] Sewing Machine Operator: Drew Craven MD GFR/1.73 sq M.predicted among non-blacks MDRD (S/P/Bld) [Vol rate/Area] mL/min/{1.73_m2} Normal >60 [facility] Comment on above: Result Comment: These results are not intended for use in patients <18 years of age. eGFR results are calculated without a race factor using the 2020 CKD-EPI equation. Careful clinical correlation is recommended, particularly when comparing to results calculated using previous equations. The CKD-EPI equation is less accurate in patients with extremes of muscle mass, extra-renal metabolism of creatine, excessive creatine ingestion, or following therapy that affects renal tubular secretion. Performed By: #### C P, ZFAST, MG, CDP, TSHX #### [facility] [address], [place] [phone] Sewing Machine Operator: Lazarus Gan MD #### LIPR #### [address] [phone] Sewing Machine Operator: Drew Craven MD Glucose [Mass/Vol] 126 mg/dL High 70-99 [facility] Comment on above: Performed By: #### C P, ZFAST, MG, CDP, TSHX #### [facility] [address], [place] [phone] Sewing Machine Operator: Lazarus Gan MD #### LIPR #### [address] [id number] Sewing Machine Operator: Drew Craven MD Potassium [Moles/Vol] 3.9 mmol/L Normal 3.7-5.3 [facility] Comment on above: Performed By: #### C P, ZFAST, MG, CDP, TSHX #### [facility] [address], [place] [phone] Sewing Machine Operator: Lazarus Gan MD #### LIPR #### [address] [phone] Sewing Machine Operator: Drew Craven MD Protein [Mass/Vol] 7.0 g/dL Normal 6.4-8.3 [facility] Comment on above: Performed By: #### C P, ZFAST, MG, CDP, TSHX #### [facility] [address] [place] [address] Sewing Machine Operator: Lazarus Gan MD #### LIPR #### [address] [phone] Sewing Machine Operator: Drew Craven MD Sodium [Moles/Vol] 139 mmol/L Normal 135-144 [facility] Comment on above: Performed By: #### C P, ZFAST, MG, CDP, TSHX #### [facility] [address], [place] [phone] Sewing Machine Operator: Lazarus Gan MD #### LIPR #### [address] [phone] Sewing Machine Operator: Drew Craven MD Urea nitrogen [Mass/Vol] 14 mg/dL Normal 8-23 [facility] Comment on above: Performed By: #### C P, ZFAST, MG, CDP, TSHX #### [facility] [address], [place] [phone] Sewing Machine Operator: Lazarus Gan MD #### LIPR #### [address] [address] Sewing Machine Operator: Drew Craven MD Lipid Profileon 04-09-2023 Cholesterol [Mass/Vol] 160 mg/dL Normal 0-199 [facility] Comment on above: Result Comment: Cholesterol Guidelines: <200 Desirable 200-240 Borderline >240 Undesirable Performed By: #### C P, ZFAST, MG, CDP, TSHX #### [facility] [address], [place] [phone] Sewing Machine Operator: Lazarus Gan MD #### LIPR #### [facility] [employer] [address] [place] [address] [id number] Sewing Machine Operator: Drew Craven MD Cholesterol in HDL [Mass/Vol] 42 mg/dL Normal >40 [facility] Comment on above: Result Comment: HDL Guidelines: <40 Undesirable 40-59 Borderline >59 Desirable Performed By: #### C P, ZFAST, MG, CDP, TSHX #### [facility] [address] [phone] Sewing Machine Operator: Lazarus Gan MD #### LIPR #### [address] [phone] Sewing Machine Operator: Drew Craven MD Cholesterol in LDL [Mass/Vol] 100 mg/dL Normal 0-100 [facility] Comment on above: Result Comment: LDL Guidelines: <100 Desirable 100-129 Near to/above Desirable 130-159 Borderline >159 Undesirable Direct (measured) LDL and calculated LDL are not interchangeable tests. Performed By: #### C P, ZFAST, MG, CDP, TSHX #### [facility] [address], [place] [phone] Sewing Machine Operator: Lazarus Gan MD #### LIPR #### [address] [id number] Sewing Machine Operator: Drew Craven MD Cholesterol in VLDL [Mass/Vol] 18 mg/dL Normal [facility] Comment on above: Performed By: #### C P, ZFAST, MG, CDP, TSHX #### [facility] [address], [place] [phone] Sewing Machine Operator: Lazarus Gan MD #### LIPR #### [address] [phone] Sewing Machine Operator: Drew Craven MD Cholesterol.total/Cho lesterol in HDL [Mass ratio] 4.0 {ratio} Normal [facility] Comment on above: Performed By: #### C P, ZFAST, MG, CDP, TSHX #### [facility] [address], [place] [phone] Sewing Machine Operator: Lazarus Gan MD #### LIPR #### [address] [phone] Sewing Machine Operator: Drew Craven MD Triglyceride [Mass/Vol] 91 mg/dL Normal 0-149 [facility] Comment on above: Result Comment: Triglyceride Guidelines: <150 Desirable 150-199 Borderline 200-499 High >499 Very high Based on AHA Guidelines for fasting triglyceride, February 2012. Performed By: #### C P, ZFAST, MG, CDP, TSHX #### [facility] [address], [place] [id number] Sewing Machine Operator: Lazarus Gan MD #### LIPR #### [address] [id number] Sewing Machine Operator: Drew Craven MD Magnesiumon 04-09-2023 Magnesium [Mass/Vol] 2.0 mg/dL Normal 1.6-2.6 [facility] Comment on above: Performed By: #### C P, ZFAST, MG, CDP, TSHX #### [facility] [address], [place] [id number] Sewing Machine Operator: Lazarus Gan MD #### LIPR #### [id number] [place], [place] [id number] Sewing Machine Operator: Drew Craven MD Patient fasting?on 3 Patient fasting? YES Normal [facility] Comment on above: Performed By: #### C P, ZFAST, MG, CDP, TSHX #### [facility] [address] [place] [address] Sewing Machine Operator: Lazarus Gan MD #### LIPR #### [facility] [address] [place], [place] [id number] Sewing Machine Operator: Drew Craven MD TSH w/reflex to FT4on 2022 Thyroid Stim. Horm. 3.02 uIU/mL Normal 0.30-5.00 [facility] Comment on above: Performed By: #### C P, ZFAST, MG, CDP, TSHX #### [facility] [address] [place] [address] Sewing Machine Operator: Lazarus Gan MD #### LIPR #### [facility] [employer] [address] [place], [place] [id number] Sewing Machine Operator: Drew Craven MD ECG 12 leadon 03-20-2023 Atrial Rate [facility] P [place] [facility] P-R Interval [facility] Q-T Interval [facility] Q-T Interval (corrected) [facility] QRS Duration [facility] QTC Calculation (Bezet) [facility] R [place] [facility] T [place] [facility] Ventricular Rate [facility] CT CCTA HEART (FINANCIAL AID COORDINATOR READ)on 03-15-2023 CT CCTA HEART (FINANCIAL AID COORDINATOR READ) Cardiac Morphology CTA Prior to Cardioversion CPT code: 64975 Patient Name: Sapna Breen Age: 72 y.o. Requesting Physician: Interpreting Publishing Specialist:: Kaity Kinney M.D. Primary Care Physician: Medardo Robles Clinical Indication: Left atrial appendage assessment Gender: female Race/Ethnicity: White Procedure: Computed tomographic, heart with contrast for evaluation of cardiac structure and morphology (including 3D image post processing, assessment of cardiac function and evaluation of venous structures, if performed). Second 25 sec delayed limited field of view obtained to evaluate for left atrial appendage thrombus. BMI: 32 Acquisition mode: Prospective ECG triggered Complications: none Image Quality: Good. No significant artifacts. Scanner: BioKier DLP: 247 mGy Radiation dose reduction was achieved by using automated exposure control and or adjustments of mA and/or kV according to patient size and/or use of iterative reconstruction techniques. Contrast: 100cc Isovue 370. Pulmonary Vein and Left Atrial Appendage Anatomy The Watchman device appears well-seated with complete occlusion of the left atrial appendage. No residual dye is seen in the left atrial appendage. Pulmonary Veins: Normal pulmonary venous drainage. There are 4 pulmonary veins identified. 2 on the right and 2 on the left. Left atrium: Left atrial size is enlarged. There is no thrombus identified. Cardiac Anatomy Left Ventricle: The ventricular cavity size is within normal limits. There are no abnormal filling defects. Pericardium: Normal thickness with no significant effusion or calcification present. Cardiac valves: There is no thickening or calcification in the aortic and mitral valves. Aorta: Normal caliber of the portion of the thoracic aorta imaged. At the PA bifurcation diameter is 31 mm by 31 mm. No calcification. No coronary artery calcification is seen.The right coronary artery is dominant.The coronary arteries appear patent. PLEASE SEE SEPARATE RADIOLOGY REPORT FOR THE NONCARDIAC FINDINGS IMPRESSION The left atrial appendage occluder device (watchman) is well-seated with complete occlusion of the left atrial appendage. Dictated by: KAITY KINNEY on SunMar 15, 2023 9:43:09 AM EDT Transcribed by: KAITY KINNEY on SunMar 15, 2023 9:43:09 AM EDT Finalized by: KAITY KINNEY on SunMar 15, 2023 9:43:09 AM EDT Normal [facility] KRISSY DIGITAL SCREEN JIMMYAndria HERRERARae 03-13-2023 [facility] KRISSY DIGITAL SCREEN BILATERAL HISTORY: Screening. Prior benign breast biopsy. Family history breast carcinoma. TECHNIQUE: Bilateral digital screening mammogram with CAD. Digital breast tomosynthesis imaging. FINDINGS: Two views of each breast show scattered areas of fibroglandular density. BREAST DENSITY CODE: S Scattered No change from prior studies, most recent of 03/06/2022. Suspicious calcifications: None. Suspicious mass: None. (If skin markers were applied, circles represent skin lesions and linear markers represent scars.) IMPRESSION: OVERALL ASSESSMENT: BIRADS: 1 Negative, no evidence of malignancy. A letter of notification will be mailed to the patient. Interpreted by: Navid Armstrong Jr., MD Signed by: Navid Armstrong Jr., MD 03/13/23 Final result [facility] Ambulatory Visit Summaryon 0 11-17-2022 Ambulatory Visit Summary SAPNA BREEN :1950 Visit Date:11/17/2022 Ambulatory Visit Instructions Your Diagnosis Asymptomatic microscopic hematuria Kidney stone BMI 31.0-31.9,adult Non-smoker Renal cyst Tests Performed Urnls Dip Stick Auto w/o Microscopy POC 05153 KUB -- Results Pending -- Please visit your patient portal for your results or contact your primary care physician. Your Care Team Attending Physician - SANDRA SAMSON, Rachel Peña Primary Care Physician - CONNER SAMSON, MEDARDO Rubio This Is Your Medications List doxycycline (doxycycline hyclate 100 mg Cap) hydrochlorothiazide (hydrochlorothiazide 25 mg Tab) hydrochlorothiazide (hydrochlorothiazide 50 mg Tab) Contact prescribing physician if questions or concerns alendronate (alendronate 70 mg oral tablet) aspirin (aspirin 81 mg oral tablet) diltiazem (Cartia XT 120 mg/24 hours oral capsule, extended release) hydrochlorothiazide (hydrochlorothiazide 50 mg Tab) lisinopril (lisinopril 5 mg Tab) metoprolol (metoprolol 50 mg ER Tab) potassium bicarbonate (potassium bicarbonate 20 mEq oral tablet, effervescent) Procedures Performed Procedure on heart valve (09/14/2021), Lithotripsy of kidney (05/21/2010), Cystoscopy, ESWL of kidney, ESWL of kidney. Discharge Vitals Heart Rate (Peripheral) 58 Blood Pressure 137/87 Height 163 cm Height 64 in Weight 84.1 kg Weight 185.02 lb BMI 31.65 What to do next Scheduled Follow-Up Appointments Sunday 9:45 AM EDT With: SANDRA SAMSON, Rachel Peña Where: [facility] Patient Educationon 11-18-19 Patient Education Urology Kidney Stones Kidney stones are rock-like masses that form inside of the kidneys. Kidneys are organs that make pee (urine). A kidney stone may move into other parts of the urinary tract, including: ? The tubes that connect the kidneys to the bladder (ureters). ? The bladder. ? The tube that carries urine out of the body (urethra). Kidney stones can cause very bad pain and can block the flow of pee. The stone usually leaves your body (passes) through your pee. You may need to have a doctor take out the stone. What are the causes? Kidney stones may be caused by: ? A condition in which certain glands make too much parathyroid hormone (primary hyperparathyroidism). ? A buildup of a type of crystals in the bladder made of a chemical called uric acid. The body makes uric acid when you eat certain foods. ? Narrowing (stricture) of one or both of the ureters. ? A kidney blockage that you were born with. ? Past surgery on the kidney or the ureters, such as gastric bypass surgery. What increases the risk? You are more likely to develop this condition if: ? You have had a kidney stone in the past. ? You have a family history of kidney stones. ? You do not drink enough water. ? You eat a diet that is high in protein, salt (sodium), or sugar. ? You are overweight or very overweight (obese). What are the signs or symptoms? Symptoms of a kidney stone may include: ? Pain in the side of the belly, right below the ribs (flank pain). Pain usually spreads (radiates) to the groin. ? Needing to pee often or right away (urgently). ? Pain when going pee (urinating). ? Blood in your pee (hematuria). ? Feeling like you may vomit (nauseous). ? Vomiting. ? Fever and chills. How is this treated? Treatment depends on the size, location, and makeup of the kidney stones. The stones will often pass out of the body through peeing. You may need to: ? Drink more fluid to help pass the stone. In some cases, you may be given fluids through an IV tube put into one of your veins at the hospital. ? Take medicine for pain. ? Make changes in your diet to help keep kidney stones from coming back. Sometimes, medical procedures are needed to remove a kidney stone. This may involve: ? A procedure to break up kidney stones using a beam of light (laser) or shock waves. ? Surgery to remove the kidney stones. Follow these instructions at home: Medicines ? Take [id number]-zbucmbw and prescription medicines only as told by your doctor. ? Ask your doctor if the medicine prescribed to you requires you to avoid driving or using heavy machinery. Eating and drinking ? Drink enough fluid to keep your pee pale yellow. You may be told to drink at least 8?10 glasses of water each day. This will help you pass the stone. ? If told by your doctor, change your diet. This may include: ? Limiting how much salt you eat. ? Eating more fruits and vegetables. ? Limiting how much meat, poultry, fish, and eggs you eat. ? Follow instructions from your doctor about eating or drinking restrictions. General instructions ? Collect pee samples as told by your doctor. You may need to collect a pee sample: ? 24 hours after a stone comes out. ? 8?12 weeks after a stone comes out, and every 6?12 months after that. ? Strain your pee every time you pee (urinate), for as long as told. Use the strainer that your doctor recommends. ? Do not throw out the stone. Keep it so that it can be tested by your doctor. ? Keep all follow-up visits as told by your doctor. This is important. You may need follow-up tests. How is this prevented? To prevent another kidney stone: ? Drink enough fluid to keep your pee pale yellow. This is the best way to prevent kidney stones. ? Eat healthy foods. ? Avoid certain foods as told by your doctor. You may be told to eat less protein. ? Stay at a healthy weight. Where to find more information ? National Kidney Foundation (NKF): www.kidney.org ? U[employer] Care Foundation (UCF): www.urologyhealth.org Contact a doctor if: ? You have pain that gets worse or does not get better with medicine. Get help right away if: ? You have a fever or chills. ? You get very bad pain. ? You get new pain in your belly (abdomen). ? You pass out (faint). ? You cannot pee. Summary ? Kidney stones are rock-like masses that form inside of the kidneys. ? Kidney stones can cause very bad pain and can block the flow of pee. ? The stones will often pass out of the body through peeing. ? Drink enough fluid to keep your pee pale yellow. This information is not intended to replace advice given to you by your health care provider. Make sure you discuss any questions you have with your health care provider. Document Revised: 01/09/2022 Document Reviewed: 01/09/2022 [employer] Patient Education ? 2022 [employer] [facility] Urology Office/Clinic Noteon 11-17-2022 Urology Office/Clinic Note HPI Staff 1 year f/u with electrolyte panel. Previous dx of asymptomatic microhematuria and kidney stone. Patient is status post cysto ud 07/26/21 Dysuria: no Incomplete bladder emptying: no Hematuria: states she has having gross hematuria until her cardiac doctors stopped her blood thinners and did a watchman procedure Frequency: no Urgency: no Nocturia: 1x a night Stream: good stream Leaking: no Post void dripping: no Wearing pads/ Depends: no Urge incontinence: no Stress incontinence: no Incontinence without Sensory Awareness: no Abdominal pain: no Flank pain: no Sexual complaints: no History of Present Illness Tests Reviewed: Reviewed UA. Electrolytes & Op Report. I have reviewed the previous health record information and history for this patient from Dr Flores I have reviewed and verified the staff HPI to be accurate for this encounter. There have been no associated fever, chills, flank pain, or blood in the urine. Denies any urinary infections since last encounter. Review of Systems PHQ Score Initial Depression Screen Score: 0 ROS - Provider Constitutional: denies weight loss, denies hot flashes. Eyes: denies eye problems. Gastrointestinal: denies nausea, denies vomiting. Cardiovascular: denies chest pain or angina. Integumentary: no dryness Musculoskeletal: denies musculoskeletal symptoms. ENMT: denies otolaryngeal symptoms. Respiratory: no shortness of breath. Heme/Lymph: denies easy bleeding tendency, denies easy bruising tendency. Psychiatric: no confusion, no anxiety. Genitourinary: SEE HPI Physical Exam Vitals & Measurements HR: 58(Peripheral) BP: 137/87 HT: 64 in HT: 163 cm WT: 84.1 kg WT: 185.02 lb BMI: 31.65 General Appearance: alert , no acute distress, well nourished, well developed female. Genitourinary: bladder nonpalpable, no flank pain. Assessment/Plan 2. Kidney stone (N20.0: Calculus of kidney) Hydrochlorothiazide raised from 25mg to 50mg at time of last encounter. Pt was to start Effer-K 25meq BID at time of last encounter. However due to cost pt did not fill script. Advised pt to use Good Rx Card. New script sent to preferred pharmacy. Potassium Level has remained stable at 3.8. check lytes and kub in one year 3. Renal cyst (N28.1: Cyst of kidney, acquired) small bilat renal cysts by ct 07/13/21 4. BMI 31.0-31.9,adult (Z68.31: Body mass index [BMI] 31.0-31.9, adult) 5. Non-smoker (Z78.9: Other specified health status) Follow-up With When Contact Information SANDRA SAMSON, Rachel Peña, [place] In [address] [place], [place] [id number]- Additional Instructions: KUB & Electrolytes Patient Education Kidney Stones, [id number] I, Angi Jimenez, personally scribed for Dr. Flores on 11/17/2022 10:53:32. . Documentation recorded by the scribe, Angi Jimenez, accurately reflects the services(s) I performed and decisions made by me. Authenticated by Dr. Flores on 11/17/2022 10:57:36. Problem List/Past Medical History Ongoing Anticoagulant long-term use Aspirin long-term use Asymptomatic microscopic hematuria Atrial fibrillation BMI 31.0-31.9,adult Gross hematuria Kidney stone Non-smoker UTI (urinary tract infection) Historical No qualifying data Procedure/Surgical History Procedure on heart valve (09/14/2021), Lithotripsy of kidney (05/21/2010), Cystoscopy, ESWL of kidney, ESWL of kidney. Medications alendronate 70 mg oral tablet, 70 mg= 1 tab(s), Oral, q7day aspirin 81 mg oral tablet Cartia XT 120 mg/24 hours oral capsule, extended release doxycycline hyclate 100 mg Cap, 100 mg= 1 cap(s), Oral, Daily hydrochlorothiazide 25 mg Tab, 25 mg= 1 tab(s), Oral, Daily, 3 refills hydrochlorothiazide 50 mg Tab, 50 mg= 1 tab(s), Oral, Daily, 2 refills hydrochlorothiazide 50 mg Tab, 50 mg= 1 tab(s), Oral, Daily, 11 refills lisinopril 5 mg Tab metoprolol 50 mg ER Tab, 50 mg= 1 tab(s), Oral, BID potassium bicarbonate 20 mEq oral tablet, effervescent, 20 mEq= 1 tab(s), Oral, BID, 11 refills Allergies penicillins (Unknown) sulfa drugs (Unknown) Social History Alcohol - Denies Alcohol Use, 04/02/2020 Tobacco - Denies Tobacco Use, 04/02/2020 Never (less than 100 in lifetime) Tobacco Use:., 11/17/2022 Never (less than 100 in lifetime) Tobacco Use:. Never Smokeless Tobacco Use:., 05/19/2019 Family History Unable to obtain family history Immunizations Vaccine Date Status Comments diphtheria/pertussis, acel/tetanus adult 06/30/2022 Recorded influenza virus vaccine, inactivated 02/16/2022 Recorded SARS-CoV-2 (COVID-19) [id number] 02/16/2022 Recorded pneumococcal 20-valent conjugate vaccine 01/09/2022 Recorded zoster vaccine, inactivated 04/29/2021 Recorded SARS-CoV-2 (COVID-19) mRNA-1273 vaccine 04/18/2021 Recorded zoster vaccine, inactivated 02/07/2021 Recorded SARS-CoV-2 (COVID-19) mRNA-1273 vaccine (more content not included)... Normal [facility] Comment on above: Result Comment: Elec tronically Signed By: Rachel FLORES MD\.br\Date and Time Signed: 11/17/22 10:57 EDT\.br\Electronically Co-Signed By: Angi Jimenez MA\.br\Date and Time Co-Signed: 11/17/22 10:54 EDT Electrolyteson 11-09-2022 Anion gap [Moles/Vol] 12 mmol/L Normal 9-17 [facility] Comment on above: Performed By: #### L YTE #### [facility] [address] [place] [address] Sewing Machine Operator: Lazarus Gan MD Chloride [Moles/Vol] 109 mmol/L High 98-107 [facility] Comment on above: Performed By: #### L YTE #### [facility] [address] [place], [place] [id number] Sewing Machine Operator: Lazarus Gan MD CO2 [Moles/Vol] 21 mmol/L Normal 20-31 [facility] Comment on above: Performed By: #### L YTE #### [facility] [address] [place], [place] [address] Sewing Machine Operator: Lazarus Gan MD Potassium [Moles/Vol] 3.8 mmol/L Normal 3.7-5.3 [facility] Comment on above: Performed By: #### L YTE #### [facility] [address], [place] [id number] Sewing Machine Operator: Lazarus Gan MD Sodium [Moles/Vol] 142 mmol/L Normal 135-144 [facility] Comment on above: Performed By: #### L YTE #### [facility] [address], [place] [id number] Sewing Machine Operator: Lazarus Gan MD Basic metabolic 2000 panelon 11-06-2022 Anion gap [Moles/Vol] 11 mmol/L 10 - 2 0 mmol/L [facility] Calcium [Mass/Vol] 10.4 mg/dL High 8.4 - 10. 2 mg/dL [facility] Chloride [Moles/Vol] 110 mmol/L High 98 - 10 8 mmol/L [facility] Creatinine [Mass/Vol] 0.91 mg/dL 0.60 - 1.20 mg/dL [facility] GFR/1.73 sq M.predicted CKD-EPI (S/P/Bld) [Vol rate/Area] 67 - PINF [facility] Comment on above: Estimated GFR was ca lculated using the 2020 CKD-EPI creatinine equation. Glucose [Mass/Vol] 136 mg/dL High 65 - 99 mg/dL [facility] HCO3 [Moles/Vol] 22 mmol/L 21 - 32 mmol/L [facility] Interpretation and review of laboratory results Abnormal [facility] Potassium [Moles/Vol] 3.4 mmol/L Low 3.5 - 5.1 mmol/L [facility] Sodium [Moles/Vol] 140 mmol/L 135 - 145 mmol/L [facility] Urea nitrogen [Mass/Vol] 14 mg/dL 8 - 25 mg/dL [facility] Urea nitrogen/Creatinine [Mass ratio] 15.4 mg/mg 10.0 - 20.0 [facility] has implemented the eGFR calculation approach that does not have a coefficient for race that conforms to the NKF-ASN Task Force Recommendations. [facility] CT PULMONARY VEIN WITH RECON STRUCTIONS 3Don 11-06-2022 CT PULMONARY VEIN WITH RECONSTRUCTIONS 3D EXAMINATION: CT PULMONARY VEIN WITH RECONSTRUCTIONS 3D HISTORY: ORDERING SYSTEM PROVIDED HISTORY: MARION assessment, s/p LAAO. TECHNOLOGIST PROVIDED HISTORY: Illness/Other. Reason for exam: Six-month followup LAAO, supplemental read. Encounter Type: Subsequent/Followup. ORDERING SYSTEM PROVIDED DIAGNOSIS CODES: I48.20 Atrial fibrillation, chronic (HCC). COMPARISON: 09/05/2022 CT pulmonary veins. TECHNIQUE: CT imaging from the base of the heart to the apex before and after the administration of intravenous contrast. CT pulmonary vein protocol was utilized. Publishing Specialist will interpret the pulmonary vein portion of the examination. Radiologist will interpret the extracardiac portion of the examination. Dose reduction techniques were achieved by using automated exposure control and/or adjustment of mA and/or kV according to patient size and/or use of iterative reconstruction technique. CONTRAST: Iopamidol 370 mg iodine/mL (76%) intravenous solution - 100 mL. FINDINGS: MEDIASTINUM: Visualized airways are patent. Cardiomegaly. No pericardial effusion. Watchman device in place at the left atrial appendage. The visualized thoracic aorta is normal in caliber without dissection. Main pulmonary artery is normal in caliber. No large central pulmonary embolus. A couple of mildly prominent mediastinal lymph nodes with short axis dimensions measurin mm in the right lower paratracheal region and 10 mm in the subcarinal region. Findings are similar to 09/05/2022 and likely relate to reactive changes. Remaining visualized lymph nodes appear normal in size. PLEURAL CAVITY: No pleural effusion. LUNGS: Mosaic attenuation of the lungs is nonspecific. Findings may relate to air trapping from chronic small airways disease. No focal airspace consolidation. Mild right lower lobe atelectasis. VISUALIZED UPPER ABDOMEN: No acute findings. Suggestion of hepatic steatosis. BONES: Multilevel spondylosis. IMPRESSION: Nonspecific mosaic attenuation of the lungs. Findings may relate to air trapping. No airspace consolidation. Suggestion of hepatic steatosis. Mildly prominent mediastinal lymph nodes. Likely reactive. Please refer to separate report for dedicated Watchman device and cardiac evaluation. ST/pji Workstation ID: [id number] Dictated by: KAYE VAZQUEZ on [facility] Mar 15, 2023 9:14:22 AM EDT Transcribed by: RAHEL RUSS on [facility] Mar 15, 2023 9:20:35 AM EDT Finalized by: KAYE VAZQUEZ on [facility] Mar 15, 2023 4:56:13 PM EDT [facility] Comment on above: Order Comment: Injur y/Trauma or Illness?:Illness/Other How long have you had these symptoms (acute/chronic)?:Acute Reason for exam?:6 month f/u LAAO, supplemental read Type of Exam?:Subsequent/Follow-up Additional signs and symptoms?: ECG 12 leadon 11-06-2022 Atrial Rate [facility] P [place] [facility] P-R Interval [facility] Q-T Interval [facility] Q-T Interval (corrected) [facility] QRS Duration [facility] QTC Calculation (Bezet) [facility] R [place] [facility] T [place] [facility] Ventricular Rate [facility] Basic metabolic 2000 panelon 09-15-2022 Anion gap [Moles/Vol] 10 mmol/L 10 - 2 0 mmol/L [facility] Calcium [Mass/Vol] 9.6 mg/dL 8.4 - 10. 2 mg/dL [facility] Chloride [Moles/Vol] 113 mmol/L High 98 - 10 8 mmol/L [facility] Creatinine [Mass/Vol] 0.78 mg/dL 0.60 - 1.20 mg/dL [facility] GFR/1.73 sq M.predicted CKD-EPI (S/P/Bld) [Vol rate/Area] 80 - PINF [facility] Comment on above: Estimated GFR was ca lculated using the 2020 CKD-EPI creatinine equation. Glucose [Mass/Vol] 167 mg/dL High 65 - 99 mg/dL [facility] HCO3 [Moles/Vol] 24 mmol/L 21 - 32 mmol/L [facility] Interpretation and review of laboratory results Abnormal [facility] Potassium [Moles/Vol] 4.2 mmol/L 3.5 - 5.1 mmol/L [facility] Sodium [Moles/Vol] 143 mmol/L 135 - 145 mmol/L [facility] Urea nitrogen [Mass/Vol] 16 mg/dL 8 - 25 mg/dL [facility] Urea nitrogen/Creatinine [Mass ratio] 20.5 mg/mg High 10.0 - 20.0 [facility] has implemented the eGFR calculation approach that does not have a coefficient for race that conforms to the NKF-ASN Task Force Recommendations. [facility] CBC panel Auto (Bld)on 09-15 Erythrocyte distribution width (RBC) [Entitic vol] 14.4 % 11.6 - 14.8 % [facility] Hematocrit (Bld) [Volume fraction] 36.9 % 36.0 - 46.0 % [facility] Hemoglobin (Bld) [Mass/Vol] 11.8 g/dL Low 12.0 - 16.0 g/dL [facility] Interpretation and review of laboratory results Abnormal [facility] MCH (RBC) [Entitic mass] 31.1 pg 26.0 - 34.0 pg [facility] MCHC (RBC) [Mass/Vol] 32.0 g/dL 31.0 - 37.0 g/dL [facility] MCV (RBC) [Entitic vol] 97.1 fL 80.0 - 100.0 fL [facility] Nucleated RBC (Bld) [#/Vol] 0.00 10*3/uL [facility] Nucleated RBC/100 WBC (Bld) [Ratio] 0.0 % [facility] Platelet mean volume (Bld) [Entitic vol] 10.4 fL 9.4 - 12.4 fL [facility] Platelets (Bld) [#/Vol] 199 10*3/uL [facility] RBC (Bld) [#/Vol] 3.80 10*6/uL [facility] WBC (Bld) [#/Vol] 8.22 10*3/uL [facility] ECHOCARDIOGRAM LIMITEDon ECHOCARDIOGRAM LIMITED Patient Info Name: SAPNA BREEN Age: 71 years : 1950 Gender: Female Ht: 163 cm Wt: 83 kg BSA: 1.97 m2 HR: 57 bpm BP: 111 / 68 mmHg Technical Quality: Good Exam Date: 09/15/2022 6:15 AM Patient Status: Inpatient Wrecking Car Driver: Araseli Blanton RCDS Exam Type: ECHOCARDIOGRAM LIMITED Study Info Indications I31.3 - Pericardial effusion (noninflammatory) Referring Physician: JUNIOR Ledezma; [id number] BMI: 31.41 kg/m2 Summary 1. A Limited transthoracic echocardiographic study was performed to reassess pericardial effusion. Complete Doppler exam was not performed. 2. Trivial pericardial effusion. No change from yesterday's transesophageal echo. 3. Grossly normal left ventricular systolic function. History/Risk Factors Hypertension: Yes Dyslipidemia: Yes Tobacco Use: Never History/Risk Factors EFFUSION CHECK POST WATCHMAN PROCEDURE. Prior Interventions Transcatheter Intervention: MARION Closure Replacement Valve Size: 27 mm Watchman Flex (09/14/2022) Procedure(s): A Limited transthoracic echocardiographic study was performed to reassess pericardial effusion. Complete Doppler exam was not performed. Report Signatures Finalized by Kaity Kinney MD on 09/15/2022 08:53 AM [facility] Echocardiogram limitedon Patient Info Name: SAPNA BREEN Age: 71 years : 1950 Gender: Female Ht: 163 cm Wt: 83 kg BSA: 1.97 m2 HR: 57 bpm BP: 111 / 68 mmHg Technical Quality: Good Exam Date: 09/15/2022 6:15 AM Patient Status: Inpatient Wrecking Car Driver: Araseli Blanton RCDS Exam Type: ECHOCARDIOGRAM LIMITED Study Info Indications I31.3 - Pericardial effusion (noninflammatory) Referring Physician: JUNIOR Ledezma; [id number] BMI: 31.41 kg/m2 Summary 1. A Limited transthoracic echocardiographic study was performed to reassess pericardial effusion. Complete Doppler exam was not performed. 2. Trivial pericardial effusion. No change from yesterday's transesophageal echo. 3. Grossly normal left ventricular systolic function. History/Risk Factors Hypertension: Yes Dyslipidemia: Yes Tobacco Use: Never History/Risk Factors EFFUSION CHECK POST WATCHMAN PROCEDURE. Prior Interventions Transcatheter Intervention: MARION Closure Replacement Valve Size: 27 mm Watchman Flex (09/14/2022) Procedure(s): A Limited transthoracic echocardiographic study was performed to reassess pericardial effusion. Complete Doppler exam was not performed. Report Signatures Finalized by Kaity Kinney MD on 09/15/2022 08:53 AM [facility] NADIRA Kinney, Kaity goodrich MD - 09/15/2022 Patient Info Name: SAPNA BREEN Age: 71 years : 1950 Gender: Female Ht: 163 cm Wt: 83 kg BSA: 1.97 m2 HR: 57 bpm BP: 111 / 68 mmHg Technical Quality: Good Exam Date: 09/15/2022 6:15 AM Patient Status: Inpatient Wrecking Car Driver: Araseli Blanton RCDS Exam Type: ECHOCARDIOGRAM LIMITED Study Info Indications I31.3 - Pericardial effusion (noninflammatory) Referring Physician: JUNIOR Ledezma; [id number] BMI: 31.41 kg/m2 Summary 1. A Limited transthoracic echocardiographic study was performed to reassess pericardial effusion. Complete Doppler exam was not performed. 2. Trivial pericardial effusion. No change from yesterday's transesophageal echo. 3. Grossly normal left ventricular systolic function. History/Risk Factors Hypertension: Yes Dyslipidemia: Yes Tobacco Use: Never History/Risk Factors EFFUSION CHECK POST WATCHMAN PROCEDURE. Prior Interventions Transcatheter Intervention: MARION Closure Replacement Valve Size: 27 mm Watchman Flex (09/14/2022) Procedure(s): A Limited transthoracic echocardiographic study was performed to reassess pericardial effusion. Complete Doppler exam was not performed. Report Signatures Finalized by Kaity Kinney MD on 09/15/2022 08:53 AM [facility] Radiology Study observation (narrative) [facility] Echocardiogram limitedOrdere d By: Kaity Kinney on 09-15-2022 [facility] Work Phone: XR CHEST AP/PA AND LATon XR CHEST AP/PA AND LAT EXAMINATION: XR CHEST AP/PA AND LAT HISTORY: s/p LAAO with 27 mm WATCHMAN FLX Injury/Trauma or Illness?:Illness/Other How long have you had these symptoms (acute/chronic)?:Acute Reason for exam?:s/p LAAO with 27 mm WATCHMAN FLX History of cancer?:u Surgeries, chemotherapy, or radiation?:u COMPARISON: None TECHNIQUE: Chest, 2 view. FINDINGS: Support devices: Watchman device projects over the expected location of the left atrial appendage. Lungs: No consolidation, effusion, or pneumothorax. No edema. Heart/mediastinum: Stable contours. Bones: No acute bony abnormality. IMPRESSION: No active disease. Please see above for discussion. Workstation ID: [id number] Dictated by: OCTAVIA MOLINA on SunSep 15, 2022 7:56:13 AM EDT Transcribed by: OCTAVIA MOLINA on SunSep 15, 2022 7:56:13 AM EDT Finalized by: OCTAVIA MOLINA on SunSep 15, 2022 7:56:13 AM EDT Normal [facility] Comment on above: Order Comment: Injur y/Trauma or Illness?:Illness/Other How long have you had these symptoms (acute/chronic)?:Acute Reason for exam?:s/p LAAO with 27 mm WATCHMAN FLX History of cancer?:u Surgeries, chemotherapy, or radiation?:u Type of Exam?:Initial Additional signs and symptoms?:n XR Chest AP/PA and LATon No active disease. Please see above for discussion. Workstation ID: [id number] GE RIS EXAMINATION: XR CHEST AP/PA AND LAT HISTORY: s/p LAAO with 27 mm WATCHMAN FLX Injury/Trauma or Illness?:Illness/Other How long have you had these symptoms (acute/chronic)?:Acute Reason for exam?:s/p LAAO with 27 mm WATCHMAN FLX History of cancer?:u Surgeries, chemotherapy, or radiation?:u COMPARISON: None TECHNIQUE: Chest, 2 view. FINDINGS: Support devices: Watchman device projects over the expected location of the left atrial appendage. Lungs: No consolidation, effusion, or pneumothorax. No edema. Heart/mediastinum: Stable contours. Bones: No acute bony abnormality. GE RIS Octavia Molina MD - 09/15/2022 EXAMINATION: XR CHEST AP/PA AND LAT HISTORY: s/p LAAO with 27 mm WATCHMAN FLX Injury/Trauma or Illness?:Illness/Other How long have you had these symptoms (acute/chronic)?:Acute Reason for exam?:s/p LAAO with 27 mm WATCHMAN FLX History of cancer?:u Surgeries, chemotherapy, or radiation?:u COMPARISON: None TECHNIQUE: Chest, 2 view. FINDINGS: Support devices: Watchman device projects over the expected location of the left atrial appendage. Lungs: No consolidation, effusion, or pneumothorax. No edema. Heart/mediastinum: Stable contours. Bones: No acute bony abnormality. IMPRESSION: No active disease. Please see above for discussion. Workstation ID: [id number] [facility] Radiology Study observation (narrative) [facility] XR Chest AP/PA and LATOrdere d By: Octavia Molina on 09-15-2022 [facility] Work Phone: ACT Coag (Bld)on 09-14-2022 [place] activated time Qn (Bld) 275 seconds [facility] Blood type and Indirect anti body screen panel (Bld)on 09-14-2022 ABO and Rh group Nom (Bld) Blood group O Rh(D) positive [facility] Blood group antibody screen Ql Negative [facility] Specimen Expires 09/17/2022 23:59 EST [facility] Cardiac Catheterizationon [facility] Radiology Study observation (narrative) [facility] ECHO DELMAR INTRAOP TRANSCATHET ER PROCEDUREon 09-14-2022 ECHO DELMAR INTRAOP TRANSCATHETER PROCEDURE Patient Info Name: SAPNA BREEN Age: 71 years : 1950 Gender: Female Ht: 163 cm Wt: 83 kg BSA: 1.97 m2 HR: 80 bpm BP: 172 / 90 mmHg Heart Rhythm: Atrial Fibrillation Technical Quality: Good Exam Date: 09/14/2022 11:18 AM Patient Status: Outpatient 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 A complete intraprocedural two-dimensional, color flow and Doppler transesophageal study was performed in the invasive procedural suite. Three-dimensional imaging was performed. Esophageal intubation of the DELMAR probe was performed by the anesthesiologist. All findings were discussed immediately with the procedural physicians. 2. This transesophageal echo is performed during Watchman placement. The baseline echo shows no pericardial effusion. There is no thrombus in the left atrial appendage or the left atrium. Left atrial appendage measurements are obtained per protocol. Postprocedure there is no peridevice leak on color Doppler. The device appears well-seated. 3D imaging correlates showing a well positioned Watchman device. There is no change in baseline pericardial effusion. Post device placement there is an iatrogenic atrial septal intra-atrial shunt with [id number] flow on color Doppler. 3. The left ventricle appears grossly normal in size with low normal systolic function, ejection fraction estimated at 50%. 4. Right ventricle appears normal in size with normal systolic function. 5. No hemodynamically significant valvular abnormalities. History/Risk Factors Hypertension: Yes Dyslipidemia: Yes Tobacco Use: Never Prior Interventions Transcatheter Intervention: MARION Closure Replacement Valve Size: 27 mm Watchman Flex (09/14/2022) Complications There were no complication prior to, during or in recovery from the transesophageal echocardiogram. Medications See anesthesia note. Procedure Details The transesophageal probe was passed into the posterior pharynx, mid-esophagus, distal esophagus. The procedure was completed without complications. Left Ventricle The left ventricle appears grossly normal in size with low normal systolic function, ejection fraction estimated at 50%. Right Ventricle Right ventricle appears normal in size with normal systolic function. Procedure(s): A complete intraprocedural two-dimensional, color flow and Doppler transesophageal study was performed in the invasive procedural suite. Three-dimensional imaging was performed. Esophageal intubation of the DELMAR probe was performed by the anesthesiologist. All findings were discussed immediately with the procedural physicians. Left Atria Left atrium appears enlarged. Right Atria Right atrium appears normal. Atrial Appendage No thrombus was detect in the left atrial appendage. Aortic Valve Normal trileaflet aortic valve with normal doppler function. Pulmonic Valve Pulmonary valve is not well visualized. Mitral Valve The mitral valve has normal structure and function. Tricuspid Valve The tricuspid valve is structurally and functionally normal by two-dimensional, color flow Doppler and Doppler interrogation. Pulmonary Veins Pulmonary veins are normal by two-dimensional and color flow imaging. Pulmonary Arteries The visualized portions of the pulmonary artery are normal. Pericardium/Pleural Pericardium is normal in appearance with no evidence for significant pericardial effusion. Aorta Normal aortic root appearance and dimension. 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 A complete intraprocedural two-dimensional, color flow and Doppler transesophageal study was performed in the invasive procedural suite. Three-dimensional imaging was performed. Esophageal intubation of the DELMAR probe was performed by the anesthesiologist. All findings were discussed immediately with the procedural physicians. 2. This transesophageal echo is performed during Watchman placement. The baseline echo shows no pericardial effusion. There is no thrombus in the left atrial appendage or the left atrium. Left atrial appendage measurements are obtained per protocol. Postprocedure there is no peridevice leak on color Doppler. The device appears well-seated. 3D imaging correlates showing a well positioned Watchman device. There is no change in baseline pericardial effusion. Post device placement there is an iatrogenic atrial septal intra-atrial shunt with [id number] flow on color Doppler. 3. The left ventricle appears grossly normal in size with low normal systolic function, ejection fraction estimated at 50%. 4. Right ventricle appears normal in size with normal systolic function. 5. No hemodynamically significant valvular abnormalities. History/Risk Factors Hypertension: Yes Dyslipidemia: Yes Tobacco Use: Never Prior Interventions Transcatheter Intervention: MARION Closure Replacement Valve Size: 27 mm Watchman Flex (09/14/2022) Complications There were no complication prior to, during or in recovery from the transesophageal echocardiogram. Medications See anesthesia note. Procedure Details The transesophageal probe was passed into the posterior pharynx, mid-esophagus, distal esophagus. The procedure was completed without complications. Left Ventricle The left ventricle appears grossly normal in size with low normal systolic function, ejection fraction estimated at 50%. Right Ventricle Right ventricle appears normal in size with normal systolic function. Procedure(s): A complete intraprocedural two-dimensional, color flow and Doppler transesophageal study was performed in the invasive procedural suite. Three-dimensional imaging was performed. Esophageal intubation of the DELMAR probe was performed by the anesthesiologist. All findings were discussed immediately with the procedural physicians. Left Atria Left atrium appears enlarged. Right Atria Right atrium appears normal. Atrial Appendage No thrombus was detect in the left atrial appendage. Aortic Valve Normal trileaflet aortic valve with normal doppler function. Pulmonic Valve Pulmonary valve is not well visualized. Mitral Valve The mitral valve has normal structure and function. Tricuspid Valve The tricuspid valve is structurally and functionally normal by two-dimensional, color flow Doppler and Doppler interrogation. Pulmonary Veins Pulmonary veins are normal by two-dimensional and color flow imaging. Pulmonary Arteries The visualized portions of the pulmonary artery are normal. Pericardium/Pleural Pericardium is normal in appearance with no evidence for significant pericardial effusion. Aorta Normal aortic root appearance and dimension. Report Signatures Echo Finalized by Michelle Antonio MD on 09/14/2022 03:22 PM Nursing Finalize by Michelle Antonio MD on 09/14/2022 03:22 PM [facility] CV Day, Crystal Haley D - 09/14/2022 Patient Info Name: SAPNA BREEN Age: 71 years : 1950 Gender: Female Ht: 163 cm Wt: 83 kg BSA: 1.97 m2 HR: 80 bpm BP: 172 / 90 mmHg Heart Rhythm: Atrial Fibrillation Technical Quality: Good Exam Date: 09/14/2022 11:18 AM Patient Status: Outpatient Wrecking Car Driver: Merry Ramirez RCDS Exam Type: ECHO DELMAR INTRAOP TRANSCATHETER PROCEDURE Study Info Indications I48.91 - Unspecified atrial fibrillation Referring Physician: ADELE Syed; [id number] BMI: 31.41 kg/m2 Summary 1. A complete intraprocedural two-dimensional, color flow and Doppler transesophageal study was performed in the invasive procedural suite. Three-dimensional imaging was performed. Esophageal intubation of the DELMAR probe was performed by the anesthesiologist. All findings were discussed immediately with the procedural physicians. 2. This transesophageal echo is performed during Watchman placement. The baseline echo shows no pericardial effusion. There is no thrombus in the left atrial appendage or the left atrium. Left atrial appendage measurements are obtained per protocol. Postprocedure there is no peridevice leak on color Doppler. The device appears well-seated. 3D imaging correlates showing a well positioned Watchman device. There is no change in baseline pericardial effusion. Post device placement there is an iatrogenic atrial septal intra-atrial shunt with [id number] flow on color Doppler. 3. The left ventricle appears grossly normal in size with low normal systolic function, ejection fraction estimated at 50%. 4. Right ventricle appears normal in size with normal systolic function. 5. No hemodynamically significant valvular abnormalities. History/Risk Factors Hypertension: Yes Dyslipidemia: Yes Tobacco Use: Never Prior Interventions Transcatheter Intervention: MARION Closure Replacement Valve Size: 27 mm Watchman Flex (09/14/2022) Complications There were no complication prior to, during or in recovery from the transesophageal echocardiogram. Medications See anesthesia note. Procedure Details The transesophageal probe was passed into the posterior pharynx, mid-esophagus, distal esophagus. The procedure was completed without complications. Left Ventricle The left ventricle appears grossly normal in size with low normal systolic function, ejection fraction estimated at 50%. Right Ventricle Right ventricle appears normal in size with normal systolic function. Procedure(s): A complete intraprocedural two-dimensional, color flow and Doppler transesophageal study was performed in the invasive procedural suite. Three-dimensional imaging was performed. Esophageal intubation of the DELMAR probe was performed by the anesthesiologist. All findings were discussed immediately with the procedural physicians. Left Atria Left atrium appears enlarged. Right Atria Right atrium appears normal. Atrial Appendage No thrombus was detect in the left atrial appendage. Aortic Valve Normal trileaflet aortic valve with normal doppler function. Pulmonic Valve Pulmonary valve is not well visualized. Mitral Valve The mitral valve has normal structure and function. Tricuspid Valve The tricuspid valve is structurally and functionally normal by two-dimensional, color flow Doppler and Doppler interrogation. Pulmonary Veins Pulmonary veins are normal by two-dimensional and color flow imaging. Pulmonary Arteries The visualized portions of the pulmonary artery are normal. Pericardium/Pleural Pericardium is normal in appearance with no evidence for significant pericardial effusion. Aorta Normal aortic root appearance and dimension. Report Signatures Echo Finalized by Michelle Antonio MD on 09/14/2022 03:22 PM Nursing Finalize by Michelle Antonio MD on 09/14/2022 03:22 PM [facility] Radiology Study observation (narrative) [facility] Echocardiogram intraop DELMAR g uidanceOrdered By: Michelle Antonio on 09-14-2022 [facility] Work Phone: INR Coag (PPP) [Relative lana e]Ordered By: Fuentes Kovacs on 09-14-2022 Interpretation and review of laboratory results Normal [facility] PT Coag (PPP) [Time] 13.7 s [facility] During the induction phase of oral anticoagulation, the INR may not reflect the anticoagulation status of the patient. Therapeutic ranges for INR's are: Most clinical situations: INR 2.0-3.0 Mechanical Prosthetic Valve: INR 2.5-3.5 Critical: INR >5.0 [facility] - Blood bankon ABO and Rh group Nom (Bld) 5100 [facility] ABO and Rh group Nom (Bld) Blood group O Rh(D) positive [facility] No Panel Informationon 09-14 Cross Match Compatible [facility] Product ID Red Blood Cells [facility] Status Info Ready for issue [facility] PT/INROrdered By: Fuentes zuñiga on 09-14-2022 INR Coag (PPP) [Relative time] 1.1 {INR} 0.8 - 1.1 [facility] Prepare RBC: 2 Unitson 09-14 Product Code [id number] [facility] Product Code [id number] [facility] Unit Number [id number] [facility] Unit Number [id number] [facility] ECG 12 leadon 08-22-2022 Atrial Rate [facility] P [place] [facility] P-R Interval [facility] Q-T Interval [facility] Q-T Interval (corrected) [facility] QRS Duration [facility] QTC Calculation (Bezet) [facility] R [place] [facility] T [place] [facility] Ventricular Rate [facility] Electrolyte Panelon 10-11-19 Anion gap [Moles/Vol] 10 mmol/L 9 - 17 mmol/L [facility] Chloride [Moles/Vol] 110 mmol/L High 98 - 10 7 mmol/L [facility] CO2 [Moles/Vol] 23 mmol/L 20 - 31 mmol/L [facility] Interpretation and review of laboratory results Abnormal [facility] Potassium [Moles/Vol] 4.0 mmol/L 3.7 - 5.3 mmol/L [facility] Sodium [Moles/Vol] 143 mmol/L 135 - 144 mmol/L [facility] [place] 07-20-2021 BLADDER CANCER FISH FINDINGS Comment Normal [facility] Comment on above: Result Comment: Nega tive UroVysion Result Fluorescence in situ hybridization (FISH) of cells recovered from urine was performed using the [employer] UroVysion Kit. A minimum of twenty-five cells was examined, and an abnormal signal pattern was not detected, indicating a NEGATIVE result. The performance characteristics of this test have been validated by [employer]. A positive result is the detection of four or more cells with greater than two signals for at least two chromosomes (3, and/or 7, and/or 17) and/or twelve or more cells with no signal for chromosome 9. Probes: 3cen(D3Z1), 7cen(D7Z1), 9p21(p16), 17cen(D17Z1) Performed By: #### F ISHUV #### [facility] [address] [place] [address] Dr. Red Longo CLINICAL DATA Comment Normal [facility] Comment on above: Result Comment: No c linical data specified Performed By: #### F ISHUV #### [facility] [address] [place] [address] Dr. Red Longo CPT CODES Comment [facility] Comment on above: Result Comment: [id number] Performed By: #### F ISHUV #### [facility] [address] [place] [address] Dr. Red Longo ELECTRONICALLY SIGNED Comment Normal [facility] Comment on above: Result Comment: Josiah Hairston MD. Performed By: #### F ISHUV #### [facility] [address] [place] [address] Dr. Red Longo SPECIMEN DESCRIPTION Comment [facility] Comment on above: Result Comment: Rece ived is 60ml of yellow, cloudy, preserved urine. Performed By: #### F ISHUV #### [facility] [address] [place] [address] Dr. Red Longo Specimen type Nom (Spec) Comment Normal [facility] Comment on above: Result Comment: Unsp ecified Collection Method Performed By: #### F ISHUV #### [facility] [address] [place] [address] Dr. Red Longo BUN & Creatinineon Creatinine [Mass/Vol] 0.73 mg/dL 0.50 - 0.90 mg/dL [employer] GFR >60 >60 mL/min [facility] [employer] GFR Non- >60 >60 mL/min [employer] GFR/1.73 sq M.predicted MDRD (S/P/Bld) [Vol rate/Area] [facility] [employer] Comment on above: Average GFR for 70 o r more years old: 75 mL/min/1.73sq m Chronic Kidney Disease: <60 mL/min/1.73sq m Kidney failure: <15 mL/min/1.73sq m eGFR calculated using average adult body mass. Additional eGFR calculator available at: http://www.Raise[employer]/multiple_crcl_2011.htm Urea nitrogen (BldV) [Mass/Vol] 14 mg/dL 8 - 23 mg/dL [facility] [employer] Electrolyte Panelon 07-13-19 Anion gap [Moles/Vol] 12 mmol/L 9 - 17 mmol/L [facility] Chloride [Moles/Vol] 105 mmol/L 98 - 10 7 mmol/L [facility] [employer] CO2 [Moles/Vol] 23 mmol/L 20 - 31 mmol/L [facility] [employer] Potassium [Moles/Vol] 3.8 mmol/L 3.7 - 5.3 mmol/L [facility] [employer] Sodium [Moles/Vol] 140 mmol/L 135 - 144 mmol/L [facility] [employer] No Panel Informationon 07-13 [facility] [employer] CYTOLOGYon 07-11-2021 SENT TO REF LAB 07/12/21 Normal [facility] Comment on above: Performed By: #### C YTO #### [facility] [address] [address] [address] Red Longo XR KUB 1 VIEWon 04-04-2021 XR KUB 1 VIEW EXAMINATION: XR KUB 1 VIEW HISTORY: Kidney stone COMPARISON: XR KUB 04/02/2020 FINDINGS: KIDNEY/URETER - RIGHT: No visible renal or ureteral calcifications. KIDNEY/URETER - LEFT: No visible renal or ureteral calcifications. PELVIS: No visible ureteral stones. Stable pelvic calcifications favoring leiomyomas. BOWEL: No abnormal dilation or deviation. BONES: No acute abnormality. OTHER: Negative. No abnormal gaseous collections. IMPRESSION: 1. No appreciable urinary tract calculi. Electronically authenticated by: ANDREW POLANCO Date: 2021-04-04 17:07 Normal [facility] KRISSY DIGITAL SCREEN BILA TERALOrdered By: Medardo Robles on 03-03-2021 BI-RADS 1 - Negative , no evidence of malignancy. Normal interval followup in 12 months. OVERALL ASSESSMENT- NEGATIVE A letter of notification will be sent to the patient regarding the results. [employer] Phone: HISTORY: Screening. Family history of breast carcinoma. TECHNIQUE: Bilateral digital screening mammogram with CAD. 2-D and 3-D tomography. FINDINGS: Two views of each breast show scattered areas of fibroglandular density. No change from prior studies the most recent of 01/14/2020. Suspicious calcifications: None. Suspicious mass: None. (If skin markers were applied, circles represent skin lesions and linear markers represent scars.) [employer] Phone: [employer] Phone: CBC Auto Differentialon 03-22 Basophils (Bld) [#/Vol] 0.00 10*3/uL [place] Basophils/100 WBC (Bld) 1 % 0 - 2 % [place] Differential Type YES [place] Eosinophils (Bld) [#/Vol] 0.10 10*3/uL [facility] [place] Eosinophils/100 WBC (Bld) 2 % 0 - 5 % [place] Erythrocyte distribution width (RBC) [Ratio] 13.5 % 12.1 - 15.2 % [place] Hematocrit (Bld) [Volume fraction] 39.8 % 36 - 46 % [place] Hemoglobin (Bld) [Mass/Vol] 13.7 g/dL 12 - 16 g/dL [place] Interpretation and review of laboratory results Abnormal [place] Lymphocytes (Bld) [#/Vol] 1.60 10*3/uL [place] Lymphocytes/100 WBC (Bld) 37 % 15 - 40 % [place] MCH (RBC) [Entitic mass] 31.9 pg 26 - 34 pg [place] MCHC (RBC) [Mass/Vol] 34.4 g/dL 31 - 37 g/dL [place] MCV (RBC) [Entitic vol] 92.7 fL 80 - 100 fL [place] Monocytes (Bld) [#/Vol] 0.50 10*3/uL [place] Monocytes/100 WBC (Bld) 11 % High 4 - 8 % [place] Platelet mean volume (Bld) [Entitic vol] NOT REPORTED 6 - 12 fL [place] Platelets (Bld) [#/Vol] 206 10*3/uL [place] Platelets (Bld) [#/Vol] NOT REPORTED [place] RBC (Bld) [#/Vol] 4.30 10*6/uL 4 - 5.2 m/uL [place], [place] RBC morphology finding Nom (Bld) NOT REPORTED [place] Segmented neutrophils/100 WBC (Bld) 49 % 47 - 75 % [place] Segs Absolute 2.20 [place] WBC (Bld) [#/Vol] 4.4 10*3/uL [place] WBC (Bld) [#/Vol] NOT REPORTED per 100 WBC [place] WBC Morphology NOT REPORTED [place] Comprehensive Metabolic Pane johnathon 04-13-2020 Albumin [Mass/Vol] 4.2 g/dL 3.5 - 5.2 g/dL [place] Albumin/Globulin [Mass ratio] NOT REPORTED [place] ALP [Catalytic activity/Vol] 60 U/L 35 - 104 U/L [place] ALT [Catalytic activity/Vol] 44 U/L High 5 - 33 U/L [place] Anion gap [Moles/Vol] 10 mmol/L 9 - 17 mmol/L [place] AST [Catalytic activity/Vol] 30 U/L <32 [place] Bilirubin Ql (U) 0.73 mg/dL 0.3 - 1.2 mg/dL [place] Bun/Cre Ratio 25 [place] Calcium [Mass/Vol] 10.9 mg/dL High 8.6 - 10. 4 mg/dL [place] Chloride [Moles/Vol] 108 mmol/L High 98 - 10 7 mmol/L [place] CO2 [Moles/Vol] 20 mmol/L 20 - 31 mmol/L [place] Creatinine [Mass/Vol] 0.84 mg/dL 0.5 - 0.9 mg/dL [place] GFR >60 >60 mL/min [place] GFR Non- >60 >60 mL/min [place] GFR/1.73 sq M predicted among non-blacks MDRD (S/P/Bld) [Vol rate/Area] [place] Comment on above: Average GFR for 70 o r more years old: 75 mL/min/1.73sq m Chronic Kidney Disease: <60 mL/min/1.73sq m Kidney failure: <15 mL/min/1.73sq m eGFR calculated using average adult body mass. Additional eGFR calculator available at: http://www.[employer]multiple_crcl_2012.htm GFR/1.73 sq M predicted among non-blacks MDRD (S/P/Bld) [Vol rate/Area] NOT REPORTED [place] Glucose [Mass/Vol] 117 mg/dL High 70 - 99 mg/dL [place], [place] Potassium [Moles/Vol] 3.7 mmol/L 3.7 - 5.3 mmol/L [place] Protein [Mass/Vol] 7.4 g/dL 6.4 - 8.3 g/dL [place] Sodium [Moles/Vol] 138 mmol/L 135 - 144 mmol/L [place] Urea nitrogen [Mass/Vol] 21 mg/dL 8 - 23 mg/dL [place] Hemoglobin A1Con 04-13-2020 Glucose [Mass/Vol] 117 mg/dL [place] Comment on above: The ADA and AACC rec ommend providing the estimated average glucose result to permit better patient understanding of their HBA1c result. HbA1c (Bld) [Mass fraction] 5.7 % 4 - 6 % [place] Lipid Panelon 04-13-2020 Cholesterol [Mass/Vol] 192 mg/dL <200 [place] Comment on above: Cholesterol Guidelines: <200 Desirable 200-240 Borderline >240 Undesirable Cholesterol in HDL [Mass/Vol] 48 mg/dL >40 [place] Comment on above: HDL Guidelines: <40 Undesirable 40-59 Borderline >59 Desirable Cholesterol in LDL [Mass/Vol] 125 mg/dL 0 - 130 mg/dL [place] Comment on above: LDL Guidelines: <100 Desirable 100-129 Near to/above Desirable 130-159 Borderline >159 Undesirable Direct (measured) LDL and calculated LDL are not interchangeable tests. Cholesterol in VLDL [Mass/Vol] NOT REPORTED 1 - 30 mg/dL [place] Cholesterol.total/Cho lesterol in HDL [Mass ratio] 4 {ratio} <5 [place] Triglyceride [Mass/Vol] 97 mg/dL <150 [place] Comment on above: Triglyceride Guidelines: <150 Desirable 150-199 Borderline 200-499 High >499 Very high Based on AHA Guidelines for fasting triglyceride, February 2012. Magnesiumon 04-13-2020 Magnesium [Mass/Vol] 2.2 mg/dL 1.6 - 2 .6 mg/dL [place] Otheron 04-13-2020 Interpretation and review of laboratory results Abnormal [place] Immature granulocytes (Bld) [#/Vol] NOT REPORTED 0 % [place] Patient Fasting?on 0 Patient Fasting? yes [place] T4, Freeon 04-13-2020 Thyroxine, Free 1.05 ng/dL 0.93 - 1.7 ng/dL [place] TSH with Reflexon 04-13-2020 TSH Qn 5.86 m[IU]/L [place] Vitamin D 25 Hydroxyon 04-13 Vit D, 25-Hydroxy 58 ng/mL 30 - 100 ng/mL [place] Comment on above: Reference Range: Vitamin D status Range Deficiency <20 ng/mL Mild Deficiency 20-30 ng/mL Sufficiency 30-100 ng/mL Toxicity >100 ng/mL XR CHEST (2 VW)on 04-13-2020 No acute heart or gurjit ng disease identified. [place] Frontal and lateral chest Clinical: Atrial fibrillation. COMPARISON: 04/21/2019. Heart and vascularity are unremarkable. Lungs are expanded and free of focal infiltrates. Mild spondylosis of the spine is noted. There is a slight to mild scoliotic deformity of the thoracolumbar spine with convexity to the right. [place] [employer] Incoming Radiant Results From [employer] - 04/13/2020 12:15 PM EST Frontal and lateral chest Clinical: Atrial fibrillation. COMPARISON: 04/21/2019. Heart and vascularity are unremarkable. Lungs are expanded and free of focal infiltrates. Mild spondylosis of the spine is noted. There is a slight to mild scoliotic deformity of the thoracolumbar spine with convexity to the right. IMPRESSION: No acute heart or lung disease identified. [place] Uric AcidOrdered By: Medardo haile on 06-16-2019 Interpretation and review of laboratory results Abnormal [employer] Phone: Urate [Mass/Vol] 9.9 mg/dL High 2.4 - 5.7 mg/dL [employer] Phone: CBC Auto Differentialon 12-0 Basophils (Bld) [#/Vol] 0.00 10*3/uL [place] Basophils/100 WBC (Bld) 0 % 0 - 2 % [place] Differential Type YES [place] Eosinophils (Bld) [#/Vol] 0.10 10*3/uL [place] Eosinophils/100 WBC (Bld) 1 % 0 - 5 % [place] Erythrocyte distribution width (RBC) [Ratio] 14.0 % 12.1 - 15.2 % [place] Hematocrit (Bld) [Volume fraction] 39.4 % 36 - 46 % [place] Hemoglobin (Bld) [Mass/Vol] 13.4 g/dL 12 - 16 g/dL [place] Lymphocytes (Bld) [#/Vol] 1.60 10*3/uL [place] Lymphocytes/100 WBC (Bld) 30 % 15 - 40 % [place] MCH (RBC) [Entitic mass] 31.8 pg 26 - 34 pg [place] MCHC (RBC) [Mass/Vol] 33.9 g/dL 31 - 37 g/dL [place] MCV (RBC) [Entitic vol] 93.7 fL 80 - 100 fL [place] Monocytes (Bld) [#/Vol] 0.40 10*3/uL [place] Monocytes/100 WBC (Bld) 8 % 4 - 8 % [place] Platelet mean volume (Bld) [Entitic vol] NOT REPORTED 6 - 12 fL [place] Platelets (Bld) [#/Vol] NOT REPORTED [place] Platelets (Bld) [#/Vol] 228 10*3/uL [place] RBC (Bld) [#/Vol] 4.21 10*6/uL 4 - 5.2 m/uL [place] RBC morphology finding Nom (Bld) NOT REPORTED [place] Segmented neutrophils/100 WBC (Bld) 61 % 47 - 75 % [place] Segs Absolute 3.30 [place] WBC (Bld) [#/Vol] 5.4 10*3/uL [place] WBC (Bld) [#/Vol] NOT REPORTED per 100 WBC [place] WBC Morphology NOT REPORTED [place] Comprehensive Metabolic Pane johnathon 04-21-2019 Albumin [Mass/Vol] 4.4 g/dL 3.5 - 5.2 g/dL [place] Albumin/Globulin [Mass ratio] NOT REPORTED [place] ALP [Catalytic activity/Vol] 63 U/L 35 - 104 U/L [place] ALT [Catalytic activity/Vol] 54 U/L High 5 - 33 U/L [place] Anion gap [Moles/Vol] 14 mmol/L 9 - 17 mmol/L [place] AST [Catalytic activity/Vol] 31 U/L <32 [place] Bilirubin Ql (U) 0.77 mg/dL 0.3 - 1.2 mg/dL [place] Bun/Cre Ratio 19 [place] Calcium [Mass/Vol] 10.8 mg/dL High 8.6 - 10. 4 mg/dL [place] Chloride [Moles/Vol] 104 mmol/L 98 - 10 7 mmol/L [place] CO2 [Moles/Vol] 22 mmol/L 20 - 31 mmol/L [place] Creatinine [Mass/Vol] 0.72 mg/dL 0.5 - 0.9 mg/dL [place] GFR >60 >60 mL/min [place] GFR Non- >60 >60 mL/min [place] GFR/1.73 sq M predicted among non-blacks MDRD (S/P/Bld) [Vol rate/Area] NOT REPORTED [place] GFR/1.73 sq M predicted among non-blacks MDRD (S/P/Bld) [Vol rate/Area] [place] Comment on above: Average GFR for 70 o r more years old: 75 mL/min/1.73sq m Chronic Kidney Disease: <60 mL/min/1.73sq m Kidney failure: <15 mL/min/1.73sq m eGFR calculated using average adult body mass. Additional eGFR calculator available at: http://www.Raise5/multiple_crcl_2012.htm Glucose [Mass/Vol] 122 mg/dL High 70 - 99 mg/dL [place] Interpretation and review of laboratory results Abnormal [place] Potassium [Moles/Vol] 3.6 mmol/L Low 3.7 - 5.3 mmol/L [place] Protein [Mass/Vol] 7.7 g/dL 6.4 - 8.3 g/dL [place] Sodium [Moles/Vol] 140 mmol/L 135 - 144 mmol/L [place] Urea nitrogen [Mass/Vol] 14 mg/dL 8 - 23 mg/dL [place] Lipid Panelon 04-21-2019 Cholesterol [Mass/Vol] 184 mg/dL <200 [place] Comment on above: Cholesterol Guidelines: <200 Desirable 200-240 Borderline >240 Undesirable Cholesterol in HDL [Mass/Vol] 52 mg/dL >40 [place] Comment on above: HDL Guidelines: <40 Undesirable 40-59 Borderline >59 Desirable Cholesterol in LDL [Mass/Vol] 111 mg/dL 0 - 130 mg/dL [place] Comment on above: LDL Guidelines: <100 Desirable 100-129 Near to/above Desirable 130-159 Borderline >159 Undesirable Direct (measured) LDL and calculated LDL are not interchangeable tests. Cholesterol in VLDL [Mass/Vol] NOT REPORTED 1 - 30 mg/dL [place] Cholesterol.total/Cho lesterol in HDL [Mass ratio] 3.5 {ratio} <5 [place] Triglyceride [Mass/Vol] 107 mg/dL <150 [place] Comment on above: Triglyceride Guidelines: <150 Desirable 150-199 Borderline 200-499 High >499 Very high Based on AHA Guidelines for fasting triglyceride, February 2012. Magnesiumon 04-21-2019 Magnesium [Mass/Vol] 2.2 mg/dL 1.6 - 2 .6 mg/dL [place] Otheron 04-21-2019 Immature granulocytes (Bld) [#/Vol] NOT REPORTED [place] Patient Fasting?on 9 Patient Fasting? yes [place] TSH with Reflexon 04-21-2019 TSH Qn 3.29 m[IU]/L [place] Vitamin D 25 Hydroxyon 04-21 Vit D, 25-Hydroxy 51.6 ng/mL 30 - 100 [facility] Comment on above: Reference Range: Vitamin D status Range Deficiency <20 ng/mL Mild Deficiency 20-30 ng/mL Sufficiency 30-100 ng/mL Toxicity >100 ng/mL XR CHEST STANDARD (2 VW)on 1 06-22-2018 [facility]: XR CHEST (2 VW ) HISTORY: Reason for exam:->Afib COMPARISON: Chest 03/29/2018. TECHNIQUE: 2 views chest FINDINGS: Heart size normal. Lungs clear. Bony thorax and upper abdomen normal. [facility] [employer] [employer] Incoming Radiant Results From [facility] - 04/21/2019 1:22 PM EST EXAM: XR CHEST (2 VW) HISTORY: Reason for exam:->Afib COMPARISON: Chest 03/29/2018. TECHNIQUE: 2 views chest FINDINGS: Heart size normal. Lungs clear. Bony thorax and upper abdomen normal. IMPRESSION: Negative chest. [facility] Progress Noteon 04-05-2018 HIM IP Note OR Professional Fee Coder Normal [facility] Progress Noteon 03-19-2018 HIM IP Note OR Professional Fee Coder Normal [facility] Progress Noteon 02-15-2018 HIM IP Note OR Professional Fee Coder Normal [facility] Progress Noteon 09-17-2017 HIM IP Note OR Professional Fee Coder Normal [facility] Vital Signs Date Time Vital Sign Value Performing Clinician Facility 11-16-2023 10:12-0400 Blood Pressure Location Rachel FLORES [facility] 11-16-2023 10:12-0400 Diastolic blood pressure 83 mm[Hg] Rachel FLORES [facility] 11-16-2023 10:12-0400 Heart rate 80 /min Rachel FLORES [facility] 11-16-2023 10:12-0400 Respiratory rate 16 /min Rachel FLORES [facility] 11-16-2023 10:12-0400 Systolic blood pressure 138 mm[Hg] Rachel FLORES [facility] 09-07-2023 08:33-0400 Body height 162.6 cm Ximena Archuleta ELECTRIC MOTOR REPAIR SUPERVISOR Work Phone: [facility] 09-07-2023 08:33-0400 Body mass index (BMI) [Ratio] 31.76 kg/m2 Ximena Arcuhleta ELECTRIC MOTOR REPAIR SUPERVISOR Work Phone: [facility] 09-07-2023 08:33-0400 Body weight 83.92 kg Ximena Archuleta ELECTRIC MOTOR REPAIR SUPERVISOR Work Phone: [facility] 09-07-2023 08:33-0400 Diastolic blood pressure 73 mm[Hg] Ximena Archuleta ELECTRIC MOTOR REPAIR SUPERVISOR Work Phone: [facility] 09-07-2023 08:33-0400 Heart rate 55 /min Ximena Archuleta ELECTRIC MOTOR REPAIR SUPERVISOR Work Phone: [facility] 09-07-2023 08:33-0400 SaO2% (BldA) [Mass fraction] 98 % Ximena Archuleta ELECTRIC MOTOR REPAIR SUPERVISOR Work Phone: [facility] 09-07-2023 08:33-0400 Systolic blood pressure 124 mm[Hg] Ximena Archuleta ELECTRIC MOTOR REPAIR SUPERVISOR Work Phone: [facility] 03-20-2023 09:18-0400 Diastolic blood pressure 81 mm[Hg] Ximena Archuleta ELECTRIC MOTOR REPAIR SUPERVISOR Work Phone: [facility] 03-20-2023 09:18-0400 Systolic blood pressure 150 mm[Hg] Ximena Archuleta ELECTRIC MOTOR REPAIR SUPERVISOR Work Phone: [facility] 03-20-2023 09:13-0400 Body height 162.6 cm Ximena Archuleta ELECTRIC MOTOR REPAIR SUPERVISOR Work Phone: [facility] 03-20-2023 09:13-0400 Body mass index (BMI) [Ratio] 31.93 kg/m2 Ximena Archuleta ELECTRIC MOTOR REPAIR SUPERVISOR Work Phone: [facility] 03-20-2023 09:13-0400 Body weight 84.37 kg Ximena Archuleta CNP Work Phone: [facility] 03-20-2023 09:13-0400 Heart rate 56 /min Ximena Acrhuleta CNP Work Phone: [facility] 03-20-2023 09:13-0400 SaO2% (BldA) [Mass fraction] 96 % Ximena Archuleta CNP Work Phone: [facility] 11-17-2022 10:01-0400 Blood Pressure Location Rachel FLORES [facility] 11-17-2022 10:01-0400 Diastolic blood pressure 87 mm[Hg] Rachel FLORES [facility] 11-17-2022 10:01-0400 Heart rate 58 /min Rachel FLORES [facility] 11-17-2022 10:01-0400 Systolic blood pressure 137 mm[Hg] Rachel FLORES [facility] 11-06-2022 10:21-0400 Body mass index (BMI) [Ratio] 31.76 kg/m2 Ximena Archuleta CNP Work Phone: [facility] 11-06-2022 10:21-0400 Body weight 83.92 kg Ximena Archuleta CNP Work Phone: [facility] 11-06-2022 10:21-0400 Diastolic blood pressure 80 mm[Hg] Ximena Archuleta CNP Work Phone: [facility] 11-06-2022 10:21-0400 Heart rate 64 /min Ximena Archuleta ELECTRIC MOTOR REPAIR SUPERVISOR Work Phone: [facility] 11-06-2022 10:21-0400 SaO2% (BldA) [Mass fraction] 95 % Ximena Archuleta CNP Work Phone: [facility] 11-06-2022 10:21-0400 Systolic blood pressure 125 mm[Hg] Ximena Archuleta CNP Work Phone: [facility] 09-15-2022 08:29-0400 Heart rate 60 /min Pollo Angulo MD Work Phone: [facility] 09-15-2022 07:06-0400 Body temperature 98.01 [degF] Pollo Angulo MD Work Phone: [facility] 09-15-2022 07:06-0400 Diastolic blood pressure 76 mm[Hg] Pollo Angulo MD Work Phone: [facility] 09-15-2022 07:06-0400 Respiratory rate 12 /min Pollo Angulo MD Work Phone: [facility] 09-15-2022 07:06-0400 SaO2% (BldA) [Mass fraction] 96 % Pollo Angulo MD Work Phone: [facility] 09-15-2022 07:06-0400 Systolic blood pressure 149 mm[Hg] Pollo Angulo MD Work Phone: [facility] 09-14-2022 09:11-0400 Body height 162.6 cm Pollo Angulo MD Work Phone: [facility] 09-14-2022 09:11-0400 Body mass index (BMI) [Ratio] 31.41 kg/m2 Pollo Angulo MD Work Phone: [facility] 09-14-2022 09:11-0400 Body weight 83.01 kg Pollo Angulo MD Work Phone: [facility] 08-22-2022 08:06-0400 Diastolic blood pressure 86 mm[Hg] Pollo Angulo MD Work Phone: [facility] 08-22-2022 08:06-0400 Systolic blood pressure 147 mm[Hg] Pollo Angulo MD Work Phone: [facility] 08-22-2022 08:05-0400 Body weight 85 kg Pollo Angulo MD Work Phone: [facility] 08-22-2022 08:05-0400 Heart rate 61 /min Pollo Angulo MD Work Phone: [facility] 08-22-2022 08:05-0400 SaO2% (BldA) [Mass fraction] 95 % Pollo Angulo MD Work Phone: [facility] Encounters Encounter Date Encounter Type Care Provider Facility Start: 12-27-2023 ambulatory Rachel Peña FLORES Facili ty:[id number] Start: 11-16-2023 End: 11-16-2023 ambulatory Rachel Mariana SANDRA Facility:[facility] Start: 11-16-2023 End: 11-16-2023 Patient encounter procedure Rachel Peña SANDRA [facility] Start: 11-06-2023 End: 11-06-2023 ambulatory [facility] Start: 10-05-2023 End: 10-05-2023 ambulatory JESSICA [facility] Start: 09-07-2023 End: 09-11-2023 ambulatory XIMENA ARCHULETA [facility] Start: 09-07-2023 End: 09-07-2023 Office outpatient visit 15 minutes Ximena Archuleta CNP Work Phone: [facility] Comment on above: Atrial fibrillation, unspecified type (HCC) (Primary Dx) Start: 04-19-2023 End: 04-21-2023 ambulatory [facility] Start: 04-09-2023 End: 04-09-2023 ambulatory [facility] Start: 03-20-2023 End: 03-20-2023 ambulatory XIMENA ARCHULETA [facility] Start: 03-20-2023 End: 03-20-2023 Office outpatient visit 15 minutes Ximena Archuleta CNP Work Phone: [facility] Comment on above: Atrial fibrillation, unspecified type (HCC) (Primary Dx); Presence of Watchman left atrial appendage closure device Start: 03-15-2023 End: 03-16-2023 ambulatory [facility] Start: 03-09-2023 End: 03-11-2023 ambulatory MEDARDO Rubio CONNER [facility] Start: 03-09-2023 Encounter for genera l adult medical examination without abnormal findings MEDARDO L [facility] Start: 03-02-2023 Documentation procedure Jack Escobar RN [facility] Start: 02-28-2023 Orders Only Jack Escobar RN [facility] Comment on above: Atrial fibrillation, chronic (HCC) (Primary Dx) Start: 11-17-2022 End: 11-17-2022 ambulatory Rachel FLORES Facility:[facility] Start: 11-17-2022 End: 11-17-2022 Patient encounter procedure Rachel FLORES [facility] Start: 11-13-2022 Refill Jack Escobar RN [facility] Comment on above: Medication Refill Start: 11-09-2022 End: 11-09-2022 [facility] Start: 11-06-2022 End: 11-10-2022 ambulatory XIMENATIFFANY ARCHULETA [facility] Start: 11-06-2022 End: 11-06-2022 Office outpatient visit 15 minutes Ximenatiffany Archuleta [facility] Work Phone: [facility] Comment on above: Atrial fibrillation, chronic (HCC) (Primary Dx); Presence of Watchman left atrial appendage closure device Start: 11-03-2022 End: 11-03-2022 Subsequent hospital visit by physician Medardo Robles MD Work Phone: [email or web address] Comment on above: Dysuria Start: 09-22-2022 ambulatory MEDARDO ROBLES [facility] Ambulatory Start: 09-14-2022 Orders Only Jack Escobar RN [facility] Comment on above: Atrial fibrillation, chronic (HCC) (Primary Dx) Start: 09-14-2022 End: 09-15-2022 Evaluation and management of inpatient [facility] Start: 09-14-2022 End: 09-15-2022 Evaluation and management of inpatient Pollo Angulo MD Work Phone: [facility] Step Down Start: 09-11-2022 End: 09-15-2022 ambulatory [facility] Start: 09-11-2022 End: 09-15-2022 Encounter for other preprocedural examination [facility] Start: 09-08-2022 Documentation procedure Jack Escobar RN [facility] Start: 08-30-2022 End: 09-03-2022 Orders Only Jack Escobar RN [facility] Comment on above: Pre-op testing (Prim fariha Dx); Atrial fibrillation, chronic (HCC) Start: 08-30-2022 Patient encounter status Jack Escobar RN [facility] Start: 08-28-2022 Orders Only Jack Escobar RN [facility] Comment on above: Atrial fibrillation, unspecified type (HCC) (Primary Dx); Atrial fibrillation, chronic (HCC) Atrial fibrillation, unspecified type (HCC) (Primary Dx) Medication Refill Start: 08-25-2022 Documentation procedure Jack Escobar RN [facility] Start: 08-22-2022 End: 08-22-2022 Office outpatient new 60 minutes Pollo Angulo MD Work Phone: [facility] Comment on above: Atrial fibrillation, unspecified type (HCC) (Primary Dx); Essential hypertension Start: 08-17-2022 Chart abstracting Sj Carver [facility] Start: 08-16-2022 Documentation procedure Anna Kelly MA [facility] Start: 03-06-2022 End: 03-08-2022 Subsequent hospital visit by physician Dariel Mammography Room [facility] Mammography Comment on above: Visit for screening mammogram Start: 10-10-2021 End: 10-10-2021 Subsequent hospital visit by physician Medardo Robles MD Work Phone: [facility] Laboratory Start: 08-24-2021 End: 08-24-2021 Subsequent hospital visit by physician Medardo Robles MD Work Phone: [facility] Laboratory Comment on above: Dysuria; Acute cystitis with hematuria Start: 07-13-2021 End: 07-13-2021 Subsequent hospital visit by physician Medardo Robles MD Work Phone: [facility] Start: 07-11-2021 End: 07-11-[address] RACHEL FLORES Facility:[facility] Start: 04-04-2021 End: 04-05-[address] DOCTOR FITZPATRICK Facility:[facility] Start: 03-03-2021 End: 03-05-2021 Subsequent hospital visit by physician [facility] Mammography Room [facility] Mammography Comment on above: Visit for screening mammogram Start: 02-28-2021 End: 02-28-2021 Subsequent hospital visit by physician Medardo Robles MD Work Phone: [facility] Comment on above: Dysuria Start: 04-13-2020 End: 04-15-2020 Subsequent hospital visit by physician Steve Additional Xray At [facility] Comment on above: Elevated glucose; Essential hypertension; Hyperlipidemia, unspecified hyperlipidemia type; Vitamin D deficiency disease; Atrial fibrillation, unspecified type (HCC) Start: 03-08-2020 End: 03-08-2020 Subsequent hospital visit by physician Medardo Robles [facility] Comment on above: Complicated UTI (uri nary tract infection) Start: 06-16-2019 End: 06-16-2019 Subsequent hospital visit by physician Medardo Robles MD Work Phone: [facility] Laboratory Comment on above: Pain and swelling of toe of left foot Start: 04-21-2019 End: 04-23-2019 Subsequent hospital visit by physician Steve Dig Rad 1 [facility] Comment on above: Essential hypertensi on; Mitral valve insufficiency, unspecified etiology; Atrial fibrillation, unspecified type (HCC) Essential hypertensi on; Mitral valve insufficiency, unspecified etiology; Atrial fibrillation, unspecified type (HCC); Hyperlipidemia, unspecified hyperlipidemia type; Vitamin D deficiency disease Procedures Date Procedure Procedure Detail Performing Clinician Start: 09-07-2023 Ecg routine ecg w/le ast 12 lds w/i&r Ximena Archuleta CNP Work Phone: Start: 03-20-2023 Ecg routine ecg w/le ast 12 lds w/i&r Ximena Genoveva Archuleta [employer] SUPERVISOR Work Phone: Start: 03-09-2023 Mammography Ximena chi [employer]PA[employer] SUPERVISOR Work Phone: Start: 11-06-2022 Ecg routine ecg w/le ast 12 lds w/i&r Ximena Archuleta [employer] SUPERVISOR Work Phone: Start: 09-15-2022 Echo transthorc r-t 2d w/wo m-mode rec f-up/lmtd Austin Mariscal MD Work Phone: Start: 09-15-2022 Radiologic exam ches t 2 views Austin Mariscal MD Work Phone: Start: 09-15-2022 Basic metabolic pane l calcium total Austin Mariscal MD Work Phone: Start: 09-14-2022 Echo delmar guid tcat icar/vessel structural intvn Pollo Angulo MD Work Phone: Start: 09-14-2022 Cardiac catheterization Pollo Angulo MD Work Phone: Start: 09-14-2022 Coagulation time activated Pollo Angulo MD Work Phone: Start: 09-14-2022 Packed RBC preparation Pollo Angulo MD Work Phone: Start: 09-14-2022 Blood typing serologic abo Pollo Angulo MD Work Phone: Start: 09-14-2022 Prothrombin time Pollo Angulo MD Work Phone: Start: 08-22-2022 Ecg routine ecg w/le ast 12 lds w/i&r Pollo Angulo MD Work Phone: Start: 03-06-2022 Mammography Pollo caceres MD Work Phone: Start: 10-10-2021 Electrolyte panel Patri mena Flores Work Phone: Start: 09-14-2021 Procedure on heart valve Rachel FLORES Start: 07-13-2021 Electrolyte panel Dexter [place] Flores Work Phone: Start: 03-03-2021 Screening mammograph y bi 2-view breast inc cad Medardo Robles MD Work Phone: Start: 04-13-2020 Radiologic exam ches t 2 views Kyle Austin Work Phone: Start: 04-13-2020 25 hydroxy includes fractions if performed Kyle Austin Work Phone: Start: 04-13-2020 Assay of free thyroxine Kyle Austin Work Phone: Start: 04-13-2020 Assay of magnesium Kyle Austin Work Phone: Start: 04-13-2020 Assay of thyroid sti mulating hormone tsh Kyle Austin Work Phone: Start: 04-13-2020 Blood count complete auto&auto difrntl wbc Kyle Austin Work Phone: Start: 04-13-2020 Comprehensive metabo lic panel Kyle Austin Work Phone: Start: 04-13-2020 Hemoglobin glycosylated a1c Kyle Austin Work Phone: Start: 04-13-2020 Lipid panel Kyle caballero Work Phone: Start: 04-13-2020 PATIENT FASTING? Kyle Austin Work Phone: Start: 04-13-2020 Ecg routine ecg w/le ast 12 lds w/i&r Kyle Austin Work Phone: Start: 06-16-2019 Assay of blood/uric acid Medardo Robles MD Work Phone: Start: 04-21-2019 Radiologic exam ches t 2 views Kyle Austin Work Phone: Start: 04-21-2019 25 hydroxy includes fractions if performed Kyle Austin Work Phone: Start: 04-21-2019 Assay of magnesium Kyle Austin Work Phone: Start: 04-21-2019 Assay of thyroid sti mulating hormone tsh Kyle Austin Work Phone: Start: 04-21-2019 Blood count complete auto&auto difrntl wbc Kyle Austin Work Phone: Start: 04-21-2019 Comprehensive metabo lic panel Kyle Austin Work Phone: Start: 04-21-2019 Lipid panel Kyle caballero Work Phone: Start: 04-21-2019 PATIENT FASTING? 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) Lucio FLORES Plan of Treatment Date Care Activity Detail Author Start: 06-30-2032 DTaP/Tdap/Td vaccine (2 - Td or Tdap) DTaP/Tdap/Td vaccine (2 - Td or Tdap) [facility] [employer] Start: 06-30-2032 Tetanus vaccination Tetanus: Every 10yrs [facility] Start: 04-11-2027 Lipid panel Lipids BON [employer] Start: 04-15-2026 Lipid panel [employer] Start: 06-14-2025 Colon cancer screen colonoscopy [facility] [place] Start: 06-14-2025 Screening for malignant neoplasm of colon [employer] Start: 04-13-2025 Lipid panel Lipid screen [employer] Work Phone: Start: 04-30-2024 History and physical examination, annual for health maintenance Wellness Visit [facility] Start: 04-21-2024 [facility] Start: 04-21-[facility]24 [facility] Start: 03-09-2024 Screening for malignant neoplasm of breast Mammogram [facility] Start: 03-06-2024 Screening for malignant neoplasm of breast Breast cancer screen [facility] Start: 10-26-2023 Depression Screen Depression Screen [facility] Start: 09-07-2023 End: 09-07-2023 Patient encounter procedure 09/07/2023 9:00 AM EDT Office Visit [facility] [address] [place] [phone] Ximena Archuleta [employer]PA[employer] SUPERVISOR [address] [place], [place] [phone] [facility] Start: 04-30-2023 End: 04-30-2023 Patient encounter procedure 04/30/2023 Office Visit Family Medicine Medardo Robles MD [address] [phone] [facility] [place] Start: 04-27-2023 Annual Wellness Visit (AWV) Annual Wellness Visit (AWV) [facility] Start: 04-26-2023 History and physical examination, annual for health maintenance Wellness Visit [facility] Start: 04-19-2023 End: 04-19-2023 Patient encounter procedure 04/19/2023 Office Visit Cardiology Kyle Austin MD [address] [place] [address] [facility] [employer] Start: 03-29-2023 [facility]id [facility] Start: 03-20-2023 End: 03-20-2023 Patient encounter procedure 03/20/2023 9:30 AM EDT Office Visit [facility] [address] [place] [address] Ximena Archuleta CNP [address] [place] [address] [facility] Start: 03-16-2023 End: 09-15-2023 CT Pulmonary Vein With Reconstructions 3D CT Pulmonary Vein With Reconstructions 3D Imaging Routine Atrial fibrillation, chronic (HCC) Expected: 03/16/2023, Expires: 09/15/2023 [facility] Work Phone: Comment on above: Expected: 03/16/2023, Expires: Start: 03-15-2023 End: 03-15-2023 Patient encounter procedure 03/15/2023 9:00 AM EDT Appointment [facility] CT Scan [address] [place] [phone] Pollo Angulo MD [address] [place] [address] [facility] [address] Scan Start: 03-06-2023 Screening for malignant neoplasm of breast Mammogram [facility] Start: 03-03-2023 Screening for malignant neoplasm of breast Breast cancer screen [facility] Start: 01-19-2023 COVID-19 Vaccine ( season) COVID-19 Vaccine ( season) [facility] Start: 01-19-2023 Influenza vaccination Sequential Influenza Vaccine (#1) [facility] Start: 11-06-2022 End: 11-06-2022 Patient encounter procedure 11/06/2022 10:30 AM EDT Office Visit [facility] [address] [place] [address] Ximena Archuleta CNP [address] [place] [address] [facility] Start: 09-14-2022 End: 09-14-2022 Admission to same day surgery center [facility] Comment on above: Left Atrial Appendage Closure Start: 09-14-2022 Subsequent hospital visit by physician [facility] Start: 09-05-2022 End: 08-31-2023 Blood type and Indirect antibody screen panel - Blood Type and Screen Blood Bank Routine Pre-op testing Expected: 09/05/2022, Expires: 08/31/2023 [facility] Comment on above: Expected: 09/05/2022, Expires: Start: 09-05-2022 End: 08-31-2023 Complete blood count with white cell differential, manual CBC and differential Lab Routine Pre-op testing Expected: 09/05/2022, Expires: 08/31/2023 [facility] Work Phone: Comment on above: Expected: 09/05/2022, Expires: Start: 09-05-2022 End: 08-31-2023 Comprehensive metabolic 2000 panel - Serum or Plasma Comprehensive metabolic panel Lab Routine Pre-op testing Expected: 09/05/2022, Expires: 08/31/2023 [facility] Comment on above: Expected: 09/05/2022, Expires: Start: 09-05-2022 End: 08-31-2023 INR in Platelet poor plasma by Coagulation assay Pro[facility]-INR Lab Routine Pre-op testing Atrial fibrillation, chronic (HCC) Expected: 09/05/2022, Expires: 08/31/2023 [facility] Comment on above: Expected: 09/05/2022, Expires: Start: 09-05-2022 End: 09-05-2022 Patient encounter procedure [facility] CT Scan Start: 08-24-2022 Depression Screen Depression Screen [facility] Start: 08-22-2022 End: 08-22-2022 Patient encounter procedure 08/22/2022 8:00 AM EDT Office Visit [facility] [address] [place] [address] Pollo Angulo MD [address] [place] [address] [facility] Start: 07-13-2022 Creatinine measurement Creatinine monitoring [facility] Start: 07-13-2022 Potassium monitoring Potassium monitoring [facility] Start: 04-26-2022 Annual Wellness Visit (AWV) Annual Wellness Visit (AWV) [facility] Start: 04-26-2022 End: 04-26-2022 Patient encounter procedure 04/26/2022 Office Visit Family Medardo Schaffer MD [address] [place] [address] [facility] Start: 04-25-2022 Depression Screen Depression Screen [facility] Start: 04-25-2022 Hemoglobin A1c measurement A1C test (Diabetic or Prediabetic) [facility] Start: 04-20-2022 End: 04-20-2022 Patient encounter procedure 04/20/2022 Office Visit Cardiology Kyle Austin MD [address] [place] [id number] [facility] [employer] Start: 01-19-2022 Influenza vaccination [facility] Start: 01-13-2022 Screening for malignant neoplasm of breast Breast cancer screen [facility] [place] [place] Start: 10-24-2021 End: 10-24-2021 Patient encounter procedure 10/24/2021 Office Visit Family Medardo Schaffer MD [address] [place] [id number] [facility] Start: 04-25-2021 End: 04-25-2021 Patient encounter procedure 04/25/2021 Office Visit Family Medardo Schaffer MD [address] [place] [address] [phone] [facility] Start: 04-21-2021 End: 04-21-2021 Patient encounter procedure 04/21/2021 Office Visit Cardiology Kyle Austin MD [address] [place] [address] [phone] [facility] [employer] Start: 04-13-2021 Creatinine measurement Creatinine monitoring [facility] Work Phone: Start: 04-13-2021 Hemoglobin A1c measurement A1C test (Diabetic or Prediabetic) [employer] Phone: Start: 04-13-2021 Potassium monitoring [facility] Phone: Start: 04-04-2021 Shingles Vaccine (2 of 2) Shingles Vaccine (2 of 2) [employer] Phone: Start: 03-03-2021 End: 03-03-2021 Patient encounter procedure 03/03/[address] [facility] Mamm[facility] Start: 02-18-2021 Annual Wellness Visit (AWV) Annual Wellness Visit (AWV) [place], [place] Start: 02-17-2021 Pneumococcal 65+ years Vaccine (2 - PCV) Pneumococcal 65+ years Vaccine (2 - PCV) [facility] [employer] Start: 01-19-2021 Influenza vaccination Flu vaccine (#1) [facility] [employer] Start: 10-04-2020 Breast cancer screen Breast cancer screen [place], [place] Start: 04-22-2020 End: 04-22-2020 Office Visit 04/22/2020 Office Visit Cardiology Kyle Austin MD [address] [place] [address] [facility] [employer] Start: 04-21-2020 Creatinine measurement Creatinine monitoring [place], [place] Start: 04-21-2020 Creatinine monitoring Creatinine monitoring [place], [place] Start: 04-21-2020 Potassium monitoring Potassium monitoring [place] Start: 04-21-2020 End: 04-21-2020 Office Visit 04/21/2020 Office Visit Family Medicine Medardo Robles MD [address] [place], [place] [phone] [facility] [place] Start: 03-18-2020 Pneumococcal 65+ years Vaccine (1 of 1 - PPSV23) Pneumococcal 65+ years Vaccine (1 of 1 - PPSV23) [place] Comment on above: Postponed from 2013 (Patient Refus ed) Start: 01-20-2020 Influenza vaccination Flu vaccine (#1) [place] Start: 01-10-2020 Annual Wellness Visit (AWV) Annual Wellness Visit (AWV) [place] Start: 09-17-2019 End: 09-17-2019 Office Visit 09/17/2019 Office Visit Family Medicine Medardo Robles MD [address] [place] [address] [phone] [facility] [place] Start: 04-28-2019 End: 04-28-2019 Office Visit 04/28/2019 Office Visit Cardiology Kyle Austin MD [address] [place] [address] [facility] [employer] Start: 03-29-2019 Creatinine monitoring Creatinine monitoring [place], [place] Start: 03-29-2019 Potassium monitoring Potassium monitoring [place] Start: 01-19-2019 Influenza vaccination Flu vaccine (#1) [place] Start: 2013 Fall risk assessment Falls Risk Assessment [facility] Start: 2013 Pneumococcal Vaccine: Age 65+ (1 - PCV) Pneumococcal Vaccine: Age 65+ (1 - PCV) [facility] Start: 1998 Administration of herpes zoster vaccine Zoster Vaccines (1 of 2) [facility] Start: 1998 Screening for malignant neoplasm of colon Flexible sigmoidoscopy [facility] Start: 1998 Shingles Vaccine (1 of 2) Shingles Vaccine (1 of 2) [place] Start: 1993 Screening for malignant neoplasm of colon [facility] Start: 1988 Diabetes screen Diabetes screen [place], [place] Start: 1988 Screening for malignant neoplasm of breast Mammogram [facility] Start: 12-12-1967 DTaP/Tdap/Td vaccine (1 - Tdap) DTaP/Tdap/Td vaccine (1 - Tdap) [facility] Start: 1966 Hepatitis C screening [facility] Start: 1960 Depression screening using PHQ-9 (Patient Health Questionnaire 9) score Depression Screening (PHQ-2/9) [facility] Start: 12-12-1959 DTaP/Tdap/Td vaccine (1 - Tdap) DTaP/Tdap/Td vaccine (1 - Tdap) [place], [place] Start: 1958 HbA1c (Bld) [Mass fraction] A1C test (Diabetic or Prediabetic) [place], [place] Start: 12-12-1951 History and physical examination, annual for health maintenance Wellness Visit [facility] Start: 06-13-1949 COVID-19 Vaccine (#1) COVID-19 Vaccine (#1) [facility] Start: 1948 Hepatitis C screen Hepatitis C screen [place], [place] Start: 1948 Hepatitis C screening Hepatitis C screen [facility] Start: 1948 Screening for malignant neoplasm of colon [facility] Start: 1948 Screening for osteoporosis Dexa Scan [facility] Start: 1948 Tetanus vaccination Tetanus: Every 10yrs [facility] 12 lead ECG ECG 12 Lead ECG Routine Atrial fibrillation, unspecified type (HCC) 09/07/2023 8:45 AM EDT [facility] End: 08-29-2023 Basic metabolic 2000 panel - Serum or Plasma Basic metabolic panel Lab Routine Atrial fibrillation, unspecified type (HCC) 1 Occurrences starting 08/28/2022 until 08/29/2023 [facility] Work Phone: Comment on above: 1 Occurrences starting 08/28/2022 until 08/29/2023 End: 02-29-2024 Basic metabolic 2000 panel - Serum or Plasma Basic metabolic panel Lab Routine Atrial fibrillation, chronic (HCC) 1 Occurrences starting 02/28/2023 until 02/29/2024 [facility] Comment on above: 1 Occurrences starting 02/28/2023 until 02/29/2024 End: 07-22-2024 Basic metabolic 2000 panel - Serum or Plasma Basic metabolic panel Lab Routine Atrial fibrillation, unspecified type (HCC) 1 Occurrences starting 09/07/2023 until 07/22/2024 [facility] Comment on above: 1 Occurrences starting 09/07/2023 until 07/22/2024 Basic metabolic 2000 panel - Serum or Plasma Basic metabolic panel Lab Routine Atrial fibrillation, unspecified type (HCC) 09/07/2023 9:08 AM EDT [facility] End: 02-29-2024 Complete blood count with white cell differential, manual CBC and differential Lab Routine Atrial fibrillation, chronic (HCC) 1 Occurrences starting 02/28/2023 until 02/29/2024 [facility] Work Phone: Comment on above: 1 Occurrences starting 02/28/2023 until 02/29/2024 End: 07-22-2024 Complete blood count with white cell differential, manual CBC and differential Lab Routine Atrial fibrillation, unspecified type (HCC) 1 Occurrences starting 09/07/2023 until 07/22/2024 [facility] Work Phone: Comment on above: 1 Occurrences starting 09/07/2023 until 07/22/2024 Complete blood count with white cell differential, manual CBC and differential Lab Routine Atrial fibrillation, unspecified type (HCC) 09/07/2023 9:08 AM EDT [facility] End: 08-29-2023 CT Pulmonary Vein With Reconstructions 3D CT Pulmonary Vein With Reconstructions 3D Imaging Routine Atrial fibrillation, unspecified type (HCC) 1 Occurrences starting 08/28/2022 until 08/29/2023 [facility] Comment on above: 1 Occurrences starting 08/28/2022 until 08/29/2023 End: 03-08-2020 Culture, Urine Culture, Urine Microbiology Routine Complicated UTI (urinary tract infection) 1 Occurrences starting 03/08/2020 until 03/08/2020 [place] Comment on above: 1 Occurrences starting 03/08/2020 until 03/08/2020 Culture, Urine [email or web address] End: 02-28-2021 Culture, Urine Culture, Urine Microbiology Routine Dysuria 1 Occurrences starting 02/28/2021 until 02/28/2021 [employer] Phone: Comment on above: 1 Occurrences starting 02/28/2021 until 02/28/2021 End: 08-24-2021 Culture, Urine [employer] Work Phone: Comment on above: 1 Occurrences starting 08/24/2021 until 08/24/2021 End: 11-03-2022 Culture, Urine [facility] [employer] Comment on above: 1 Occurrences starting 11/03/2022 until 11/03/2022 End: 10-29-2023 Echocardiography Echocardiogram complete Echocardiography Routine Atrial fibrillation, unspecified type (HCC) Atrial fibrillation, chronic (HCC) 1 Occurrences starting 08/28/2022 until 10/29/2023 [facility] Work Phone: Comment on above: 1 Occurrences starting 08/28/2022 until 10/29/2023 EKG 12 Lead [facility] [place] LEFT ATRIAL APPENDAG E LIGATION LEFT ATRIAL APPENDAGE LIGATION atrial fibrillation [facility] End: 03-06-2022 JAMES KRISSY DIGITAL SCREEN BILATERAL [facility] Work Phone: Comment on above: 1 Occurrences starting 03/06/2022 until 03/06/2022 Immunizations Immunization Date Immunization Notes Care Provider Fa juan josenoelle 06-30-2022 tetanus toxoid, redu fareed diphtheria toxoid, and acellular pertussis vaccine, adsorbed Rachel FLORES [facility] 02-16-2022 influenza virus vaccine, unspecified formulation Rachel FLORES [facility] 02-16-2022 Influenza, FLUAD, (a ge 65 y+), Adjuvanted, 0.5mL Medardo Robles MD Work Phone: [facility] 02-16-2022 SARS-CoV-2 (COVID-19 ) [id number] Rachel FLORES [facility] 01-09-2022 Pneumococcal, PCV20, PREVNAR 20, (age 18y+), IM, 0.5mL Medardo Robles MD Work Phone: [facility] 04-29-2021 zoster vaccine recombinant [facility] Room [facility] Work Phone: 04-19-2021 COVID-19, Moderna, Primary or Immunocompromised, PF, 100mcg/0.5mL Medardo Robles MD Work Phone: [facility] 04-18-2021 COVID-19, MODERNA BL UE border, Primary or Immunocompromised, (age 12y+), IM, 100 mcg/0.5mL [facility] [employer] Work Phone: 02-07-2021 zoster vaccine recombinant Medardo Robles MD Work Phone: [employer] Work Phone: 08-23-2020 COVID-19, Moderna, P F, 100mcg/0.5mL Medardo Robles MD Work Phone: [employer] Work Phone: 07-26-2020 COVID-19, Moderna, P F, 100mcg/0.5mL Medardo Robles MD Work Phone: [employer] Work Phone: 05-21-2020 SARS-CoV-2 (COVID-19 ) mRNA BNT-162b2 vax Rachel FLORES [facility] 02-18-2020 pneumococcal polysaccharide vaccine, 23 valent Medardo [employer] NEGATED: Highlighted row has not occurred!05-19-2019 influenza virus vaccine, live, attenuated, for intranasal use Rachel FLORES [facility] Payers Date Payer Category Payer Unknown AARP AARP [employer] [id number] 2022-Present [phone] [address] [place] [address] [id number] 2014 Medicare xxxxxxxxxxx [id number] 2013 Medicare MEDICARE MEDICAR E PART A & B [id number] 2013-Present [phone] CGS [id number] PART [place] [address] [id number] 1959 Medicare [id number] 1959 Private Health Insurance [id number] .[id number] 1948 Unknown [id number] 2.16.840.1.901961.3.579.2 .593 1948 Unknown [id number] 2.16.840.1.059119.3.579.2 .59 1950 Unknown [id number] 2.16840.1.511154.3.579.2 .90 1948 Unknown [id number] 2.840.1.078032.3.579.2 .90 1948 Unknown [id number] 2.16840.1.247244.3.579.2 .90 1948 Unknown [id number] 2.16840.1.703783.3.579.2 .90 1948 Unknown [id number] 2.16840.1.545817.3.579.2 .903 1948 Unknown [id number] 2.16840.1.303003.3.579.2 .90 1948 Unknown [id number] 2.16840.1.104144.3.579.2 .90 1948 Unknown [id number] 2.16.840.1.533799.3.579.2 .90 1948 Unknown [id number] 2.16840.1.392642.3.579.2 .90 1948 Unknown [id number] 2.16840.1.345483.3.579.2 .90 1948 Unknown [id number] 2.16.840.1.036088.3.579.2 .174 1948 Unknown [id number] 2.16.840.1.559322.3.579.2 .174 1948 Unknown [id number] 2.16.840.1.363398.3.579.2 .174 1948 Unknown [id number] 2.16.840.1.259731.3.579.2 .174 1948 Unknown [id number] 2.16.840.1.951196.3.579.2 .174 1948 Unknown [id number] 2.16.840.1.765435.3.579.2 .174 1948 Unknown [id number] 2.16.840.1.202644.3.579.2 .174 1950 Unknown [id number] 2.16.840.1.440322.3.579.2 .727 1950 Unknown [id number] 2.16.840.1.184455.3.579.2 .727 Social History Date Type Detail Facility Start: 03-18-2019 End: 11-16-2023 Tobacco smoking status NHIS Never smoker [place] Start: 03-18-2019 End: 11-03-2022 Alcohol intake Current non-drinker of alcohol (finding) [place] Start: 1950 Sex Assigned At Not on file [place] Start: 03-08-2020 End: 08-22-2022 Tobacco use and exposure Never used [place] Start: 10-20-2020 End: 10-25-2022 History SDOH Financial 4 [employer] Phone: Start: 10-20-2020 End: 10-25-2022 History SDOH Food Worry 1 [employer] Phone: Start: 10-24-2021 History SDOH [facility] 5 [facility] Tobacco smoking stat [facility] Tobacco smoking consumption unknown [facility] Start: 08-22-2022 End: 03-20-2023 Gender identity Not on file [facility] Start: 08-22-2022 End: 09-07-2023 Alcohol intake Lifetime non-drinker (finding) [facility] Start: 08-22-2022 Gender identity Identifies as female gender (finding) [facility] Start: 08-22-2022 Sexual orientation Heterosexual (finding) [facility] Start: 08-12-2022 End: 09-05-2022 Exposure to SARS-CoV-2 (event) Not sure [facility] Start: 08-22-2022 End: 03-20-2023 History of Social function [facility] Start: 04-26-2022 History SDOH Alcohol Std Drinks 0 [facility] [employer] Start: 10-25-2022 History SDOH [facility]-Med 2 [facility] Tobacco smoking status Never [facility] Medical Equipment Procedure Code Equipment Code Equipment Origin al Text Equipment Identifier Dates Device 27mm Watchman Flex - [id number] Start: 09-14-2022 Comment on above: Description: MARION Closure Perclose Prostyle - [id number] FDA Start: 09-14-2022 Comment on above: Description: Femoral System Watchman Flex Procedure Charge - [id number] Start: 09-14-2022 Functional Status Date Assessment Result Facility 11-16-2023 Functional Status N/A [facility] 11-17-2022 Functional Status N/A [facility] Clinical Notes 08-16-2022 to 11-16-2023 Ximena Archuleta CNP - 09/07/2023 8:52 AM Mary Louie MA - 09/07/2023 8:24 AM EDTPatient Ximena Rios CNP - 03/20/2023 9:39 AM EDTPatient Instructions Note Date & Type Note Facility 11-16-2023 Hospital Discharge instructions Patient Education 11/16/2023 10:41:26 Dietary Guidelines to Help Prevent Kidney Stones Dietary Guidelines to Help Prevent Kidney Stones Kidney stones are deposits of minerals and salts that form inside your kidneys. Your risk of developing kidney stones may be greater depending on your diet, your lifestyle, the medicines you take, and whether you have certain medical conditions. Most people can lower their risks of developing kidney stones by following these dietary guidelines. Your dietitian may give you more specific instructions depending on your overall health and the type of kidney stones you tend to develop. What are tips for following this plan? Reading food labels Choose foods with no salt added or low-salt labels. Limit your salt (sodium) intake to less than 1,500 mg a day. Choose foods with calcium for each meal and snack. Try to eat about 300 mg of calcium at each meal. Foods that contain 200 500 mg of calcium a serving include: ?8 oz (237 mL) of milk, ptljnqt-drparpbkbutc-oifne milk, and calcium-fortifiedfruit juice. Calcium-fortified means that calcium has been added to these drinks. ?8 oz (237 mL) of kefir, yogurt, and soy yogurt. ?4 oz (114 g) of tofu. ?1 oz (28 g) of cheese. ?1 cup (150 g) of dried figs. ?1 cup (91 g) of cooked broccoli. ?One 3 oz (85 g) can of sardines or mackerel. Most people need 1,000 1,500 mg of calcium a day. Talk to your dietitian about how much calcium is recommended for you. Shopping Buy plenty of fresh fruits and vegetables. Most people do not need to avoid fruits and vegetables, even if these foods contain nutrients that may contribute to kidney stones. When shopping for convenience foods, choose: ?Whole pieces of fruit. ?Pre-made salads with dressing on the side. ?Low-fat fruit and yogurt smoothies. Avoid buying frozen meals or prepared deli foods. These can be high in sodium. Look for foods with live cultures, such as yogurt and kefir. Choose high-fiber grains, such as whole-wheat breads, oat bran, and wheat cereals. Cooking Do not add salt to food when cooking. Place a salt shaker on the table and allow each person to add their own salt to taste. Use vegetable protein, such as beans, textured vegetable protein (TVP), or tofu, instead of meat in pasta, casseroles, and soups. Meal planning Eat less salt, if told by your dietitian. To do this: ?Avoid eating processed or pre-made food. ?Avoid eating fast food. Eat less animal protein, including cheese, meat, poultry, or fish, if told by your dietitian. To do this: ?Limit the number of times you have meat, poultry, fish, or cheese each week. Eat a diet free of meat at least 2 days a week. ?Eat only one serving each day of meat, poultry, fish, or seafood. ?When you prepare animal proteins, cut pieces into small portion sizes. For most meat and fish, one serving is about the size of the palm of your hand. Eat at least five servings of fresh fruits and vegetables each day. To do this: ?Keep fruits and vegetables on hand for snacks. ?Eat one piece of fruit or a handful of berries with breakfast. ?Have a salad and fruit at lunch. ?Have two kinds of vegetables at dinner. You may be told to limit foods that are high in a substance called oxalate. These include: ?Spinach (cooked), rhubarb, beets, sweet potatoes, and [place] Citizen chard. ?Peanuts. ?Potato chips, divehi fries, and baked potatoes with skin on. ?Nuts and nut products. ?Chocolate. If you regularly take a diuretic medicine, make sure to eat at least 1 or 2 servings of fruits or vegetables that are high in potassium each day. These include: ?Avocado. ?Banana. ?[place], prune, carrot, or tomato juice. ?Baked potato. ?Cabbage. ?Beans and split peas. Lifestyle Drink enough fluid to keep your urine pale yellow. This is the most important thing you can do. Spread your fluid intake throughout the day. If you drink alcohol: ?Limit how much you have to: ?0 1 drink a day for women who are not . ?0 2 drinks a day for men. ?Know how much alcohol is in your drink. In the [place] one drink equals one 12 oz bottle of beer (355 mL), one 5 oz glass of wine (148 mL), or one 1 oz glass of hard liquor (44 mL). Lose weight if told by your health care provider. Work with your dietitian to find an eating plan and weight loss strategies that work best for you. General information Talk to your health care provider and dietitian about taking daily supplements. Depending on your health and the cause of your kidney stones, you may be told: ?Do not take high-dose supplements of vitamin C (1,000 mg a day or more). ?To take a calcium supplement. ?To take a daily probiotic supplement. ?To take other supplements such as magnesium, fish oil, or vitamin B6. Take zfxd-jow-fyqpzhw and prescription medicines only as told by your health care provider. These include supplements. What foods should I limit? Limit your intake of the following foods, or eat them as told by your dietitian. Vegetables Spinach. Rhubarb. Beets. Canned vegetables. Pickles. Olives. Baked potatoes with skin. Grains Wheat bran. Baked goods. Salted crackers. Cereals high in sugar. Meats and other proteins Nuts. Nut butters. Large portions of meat, poultry, or fish. Salted, precooked, or cured meats, such as sausages, meat loaves, and hot dogs. Dairy Cheeses. Beverages Regular soft drinks. Regular vegetable juice. Seasonings and condiments Seasoning blends with salt. Salad dressings. Soy sauce. Ketchup. Barbecue sauce. Other foods Canned soups. Canned pasta sauce. Casseroles. Pizza. Lasagna. Frozen meals. Potato chips. Yemeni fries. The items listed above may not be a complete list of foods and beverages you should limit. Contact a dietitian for more information. What foods should I avoid? Talk to your dietitian about specific foods you should avoid based on the type of kidney stones you have and your overall health. Fruits Grapefruit. The item listed above may not be a complete list of foods and beverages you should avoid. Contact a dietitian for more information. Summary Kidney stones are deposits of minerals and salts that form inside your kidneys. You can lower your risk of kidney stones by making changes to your diet. The most important thing you can do is drink enough fluid. Drink enough fluid to keep your urine pale yellow. Talk to your dietitian about how much calcium you should have each day, and eat less salt and animal protein as told by your dietitian. This information is not intended to replace advice given to you by your health care provider. Make sure you discuss any questions you have with your health care provider. Document Revised: 08/17/2022 Document Reviewed: 08/17/2022 [employer] Patient Education 2022 [place]te. Follow Up Care 11/17/2022 10:51:02 With:SANDRA SAMSON, Rachel Peña, URL Address: [address] [place], [place] [id number]- When: Unknown [facility] 11-16-2023 Note Patient Education Nephrology Dietary Guidelines to Help Prevent Kidney Stones Kidney stones are deposits of minerals and salts that form inside your kidneys. Your risk of developing kidney stones may be greater depending on your diet, your lifestyle, the medicines you take, and whether you have certain medical conditions. Most people can lower their risks of developing kidney stones by following these dietary guidelines. Your dietitian may give you more specific instructions depending on your overall health and the type of kidney stones you tend to develop. What are tips for following this plan? Reading food labels ? Choose foods with no salt added or low-salt labels. Limit your salt (sodium) intake to less than 1,500 mg a day. ? Choose foods with calcium for each meal and snack. Try to eat about 300 mg of calcium at each meal. Foods that contain 200?500 mg of calcium a serving include: ? 8 oz (237 mL) of milk, wcuzxaa-vjaxlynxsxka-qyoyu milk, and calcium-fortifiedfruit juice. Calcium-fortified means that calcium has been added to these drinks. ? 8 oz (237 mL) of kefir, yogurt, and soy yogurt. ? 4 oz (114 g) of tofu. ? 1 oz (28 g) of cheese. ? 1 cup (150 g) of dried figs. ? 1 cup (91 g) of cooked broccoli. ? One 3 oz (85 g) can of sardines or mackerel. Most people need 1,000?1,500 mg of calcium a day. Talk to your dietitian about how much calcium is recommended for you. Shopping ? Buy plenty of fresh fruits and vegetables. Most people do not need to avoid fruits and vegetables, even if these foods contain nutrients that may contribute to kidney stones. ? When shopping for convenience foods, choose: ? Whole pieces of fruit. ? Pre-made salads with dressing on the side. ? Low-fat fruit and yogurt smoothies. ? Avoid buying frozen meals or prepared deli foods. These can be high in sodium. ? Look for foods with live cultures, such as yogurt and kefir. ? Choose high-fiber grains, such as whole-wheat breads, oat bran, and wheat cereals. Cooking ? Do not add salt to food when cooking. Place a salt shaker on the table and allow each person to add their own salt to taste. ? Use vegetable protein, such as beans, textured vegetable protein (TVP), or tofu, instead of meat in pasta, casseroles, and soups. Meal planning ? Eat less salt, if told by your dietitian. To do this: ? Avoid eating processed or pre-made food. ? Avoid eating fast food. ? Eat less animal protein, including cheese, meat, poultry, or fish, if told by your dietitian. To do this: ? Limit the number of times you have meat, poultry, fish, or cheese each week. Eat a diet free of meat at least 2 days a week. ? Eat only one serving each day of meat, poultry, fish, or seafood. ? When you prepare animal proteins, cut pieces into small portion sizes. For most meat and fish, one serving is about the size of the palm of your hand. ? Eat at least five servings of fresh fruits and vegetables each day. To do this: ? Keep fruits and vegetables on hand for snacks. ? Eat one piece of fruit or a handful of berries with breakfast. ? Have a salad and fruit at lunch. ? Have two kinds of vegetables at dinner. ? You may be told to limit foods that are high in a substance called oxalate. These include: ? Spinach (cooked), rhubarb, beets, sweet potatoes, and [place] Citizen chard. ? Peanuts. ? Potato chips, divehi fries, and baked potatoes with skin on. ? Nuts and nut products. ? Chocolate. ? If you regularly take a diuretic medicine, make sure to eat at least 1 or 2 servings of fruits or vegetables that are high in potassium each day. These include: ? Avocado. ? Banana. ? [place], prune, carrot, or tomato juice. ? Baked potato. ? Cabbage. ? Beans and split peas. Lifestyle ? Drink enough fluid to keep your urine pale yellow. This is the most important thing you can do. Spread your fluid intake throughout the day. ? If you drink alcohol: ? Limit how much you have to: ? 0?1 drink a day for women who are not . ? 0?2 drinks a day for men. ? Know how much alcohol is in your drink. In the [place] one drink equals one 12 oz bottle of beer (355 mL), one 5 oz glass of wine (148 mL), or one 1? oz glass of hard liquor (44 mL). ? Lose weight if told by your health care provider. Work with your dietitian to find an eating plan and weight loss strategies that work best for you. General information ? Talk to your health care provider and dietitian about taking daily supplements. Depending on your health and the cause of your kidney stones, you may be told: ? Do not take high-dose supplements of vitamin C (1,000 mg a day or more). ? To take a calcium supplement. ? To take a daily probiotic supplement. ? To take other supplements such as magnesium, fish oil, or vitamin B6. ? Take tnzy-fvt-shzjvsb and prescription medicines only as told by your health care provider. These include suppleme (more content not included)... [facility] 09-07-2023 History of Present illness Narrative Structural Heart Clinic Visit [facility] 09/07/2023 Ximena Archuleta, ELECTRIC MOTOR REPAIR SUPERVISOR [address] [facility] [address] Patient: Sapna Breen Date of : 1950 (72 y.o.) Referring Provider: No ref. provider found PCP: Medardo Robles MD Chief Complaint: Follow-up (1 year LAAO -no complaints ) Date of Service: 09/07/2023 Assessment and Plan: Atrial fibrillation/status post LAAO Watchman FLX Status post LAAO with Watchman FLX 09/14/2022 with a left atrial appendage occluder 27 mm device gang ripsaw operator Dr. Angulo. Has been compliant with monotherapy with aspirin. Coronary CT [facility] imaging 03/15/2023 showed a well-seated and complete occlusion of the left atrial appendage. No thrombus noticed on device no leak. 12-lead EKG Sinus bradycardia low voltage in precordial leads, old anterior infarct Follows with Dr. Austin for her primary cardiology needs. Overall patient states she is doing well no active complaints of chest pain, shortness of breath, orthopnea, PND, lightheadedness or dizziness, palpitations, dependent edema, near-syncope/syncope. Plan: 1. Continue indefinitely with aspirin EC 81 mg daily in addition to her other cardiac medication. 2. Follow-up in 1-year to the structural heart clinic for her 2 year post Watchman FLX implantation 3. Continue to follow with Dr. Austin for her primary cardiology needs. It has been a pleasure caring for this patient. Please don't hesitate to reach out to my office directly with any questions or concerns. Follow-up: Return in about 1 year (around 09/06/2024). Ximena Archuleta, MSN, CARDIOPULMONARY TECHNOLOGIST CHIEF, ELECTRIC MOTOR REPAIR SUPERVISOR [facility] P:[phone] F:[phone] History of Present Illness: Sapna Breen is a 72 y.o. woman with a past medical history of paroxysmal atrial fibrillation with a CHADS VASc score of 3, HAS-BLED 3 with previous history of hematuria who was referred to the structural heart clinic by Dr. Austin for consideration of left atrial appendage closure with WATCHMAN device. Presented for elective LAAO on 09/14/22 On 09/14/22 patient underwent successful transcatheter left atrial appendage closure with a WATCHMAN FLX left atrial appendage occluder 27 mm device. The device was deployed without complications. No leak was identified around the device. No pericardial effusion was noted. No increased bleeding from the access site. electric knife operator was Dr. Angulo with co-hot mix operator Dr. Mariscal DELMAR physician, Dr. Antonio. She is here for a 1-year post LAAO Watchman follow-up. Primary steeler is Dr. Austin. Objective Review of Systems: All systems were reviewed and noted to be negative unless otherwise stated in HPI. Past Medical History: Diagnosis Date A-fib (HCC) Hyperlipidemia Hypertension Kidney stone Past Surgical History: Procedure Laterality Date BREAST SURGERY SECTION EP - INTERVENTION N/A 09/14/2022 Procedure: Left Atrial Appendage Closure; Surgeon: Pollo Angulo MD; Location: [facility] SUPPORT CLERK; Service: Cardiovascular History reviewed. No pertinent family history. Social History Tobacco Use Smoking Status Never Smokeless Tobacco Never Allergies: Penicillins and Sulfa (sulfonamide antibiotics) All of the above information has been reviewed at today's visit and modified if necessary. Home Medications: Current Outpatient Medications: alendronate (FOSAMAX) 70 MG tablet, Take 1 (one) tablet (70 mg total) by mouth every 7 days (full glass of water on an empty stomach). Remain upright and do not eat for next 30 min ., Disp: , Rfl: allopurinoL (ZYLOPRIM) 100 MG tablet, Take 1 (one) tablet (100 mg total) by mouth daily ., Disp: , Rfl: aspirin 81 MG EC tablet, Take 1 (one) tablet (81 mg total) by mouth daily ., Disp: , Rfl: cholecalciferol, vitamin D3, 1,000 unit tablet, Take 1 (one) tablet (1,000 Units total) by mouth daily ., Disp: , Rfl: colchicine 0.6 mg tablet, Take 1 (one) tablet (0.6 mg total) by mouth daily ., Disp: , Rfl: diltiazem (CARDIZEM CD) 120 MG 24 hr capsule, Take 1 (one) capsule (120 mg total) by mouth daily ., Disp: , Rfl: hydroCHLOROthiazide (HYDRODIURIL) 25 MG tablet, Take 1 (one) tablet (25 mg total) by mouth daily ., Disp: , Rfl: lisinopriL (PRINIVIL,ZESTRIL) 5 MG tablet, Take by mouth daily ., Disp: , Rfl: metoprolol tartrate (LOPRESSOR) 50 MG tablet, Take 1 (one) tablet (50 mg total) by mouth 2 (two) times a day ., Disp: , Rfl: potassium chloride SA (K-DUR,KLOR-CON) 20 MEQ tablet, Take 1 (one) tablet (20 mEq total) by mouth 2 (two) times a day ., Disp: , Rfl: Physical Exam: BP 124/73 (BP Location: Left arm, Patient Position: Sitting, BP Cuff Size: X-large Adult) Pulse (!) 55 Ht 5' 4 Wt 83.9 kg (185 lb) SpO2 98% BMI 31.76 kg/m Constitutional: Well appearing female, no acute distress Head: Normocephalic and atraumatic. Cardiovascular: Bradycardic rate and rhythm, no murmurs appreciated on today's exam, normal S1 and S2, no rubs or gallops, PMI is midline Lungs: Clear to auscultation anterior and posterior bilaterally. Pulses: +2 dorsalis pedis pulses bilaterally Musculoskeletal: Normal range of motion. No cyanosis. No peripheral edema Neurological: AOx3, moving all extremities normally Skin: Skin is warm and dry, normal hair pattern Psychiatric: Normal mood and affect, appropriate conversation Cardiovascular Studies: Cardiac morphology CTA prior to cardioversion/status post LAAO 03/15/2023 Left atrial appendage occluder device well-seated with complete occlusion of the left atrial appendage. No thrombus no leak. Limited 2D echocardiogram 09/14/2022 Summary 1. A Limited transthoracic echocardiographic study was performed to reassess pericardial effusion. Complete Doppler exam was not performed. 2. Trivial pericardial effusion. No change from yesterday's transesophageal echo. 3. Grossly normal left ventricular systolic function. 2D echocardiogram 09/05/2022 Summary 1. Left ventricular systolic function is normal with an ejection fraction by Biplane Method of Discs of 64 %. 2. Right ventricular size and systolic function are normal. 3. The left ventricular diastolic function is normal. 4. No significant valvular disease identified. Labs: Lab Results Component Value Date GLUCOSE 131 (H) 03/05/2023 CALCIUM 9.9 03/05/2023 NA 141 03/05/2023 K 3.9 03/05/2023 CL 112 (H) 03/05/2023 BUN 14 03/05/2023 CREATININE 0.81 03/05/2023 Lab Results Component Value Date ALT 58 09/11/2022 AST 28 09/11/2022 ALKPHOS 62 09/11/2022 BILITOT 0.5 09/11/2022 Lab Results Component Value Date WBC 4.52 03/05/2023 HGB 13.4 03/05/2023 HCT 42.2 03/05/2023 MCV 98.1 03/05/2023 PLT 204 03/05/2023 RBC 4.30 03/05/2023 No results found for: CHOL , LDLCALC , LDLDIRECT , TRIG , HDL No results found for: HGBA1C Lab Results Component Value Date ALT 58 09/11/2022 AST 28 09/11/2022 ALKPHOS 62 09/11/2022 BILITOT 0.5 09/11/2022 The 10-year ASCVD risk score (Slim FUNEZ, et al., 2019) is: 13.4% Values used to calculate the score: Age: 72 years Sex: Female Is Non- : No Diabetic: No Tobacco smoker: No Systolic Blood Pressure: 124 mmHg Is BP treated: No HDL Cholesterol: 42 mg/dL Total Cholesterol: 160 mg/dL Images from the original note were not included. MODIFIED NUNU Score Description 0 No symptoms at all 1 No significant disability despite symptoms; able to carry out all usual duties and activities 2 Slight disability; unable to carry out all previous activities, but able to look after own affairs without assistance 3 Moderate disability; requiring some help, but able to walk without assistance 4 Moderately severe disability; unable to walk without assistance and unable to attend to own bodily needs without assistance 5 Severe disability; bedridden, incontinent and requiring constant nursing care and attention 6 TOTAL (0-6): ___0____ YUNG INDEX Activity Score FEEDING 0 = unable 5 = needs help cutting, spreading butter, etc., or requires modified diet 10 = independent ___10___ BATHING 0 = dependent 5 = independent (or in shower) _5 GROOMING 0 = needs to help with personal care 5 = independent face/hair/teeth/shaving (implements provided) ___5___ DRESSING 0 = dependent 5 = needs help but can do about half unaided 10 = independent (including buttons, zips, laces, etc.) ___10___ BOWELS 0 = incontinent (or needs to be given enemas) 5 = occasional accident 10 = continent __10____ BLADDER 0 = incontinent, or catheterized and unable to manage alone 5 = occasional accident 10 = continent ___10___ TOILET USE 0 = dependent 5 = needs some help, but can do something alone 10 = independent (on and off, dressing, wiping) _10 TRANSFERS (BED TO CHAIR AND BACK) 0 = unable, no sitting balance 5 = major help (one or two people, physical), can sit 10 = minor help (verbal or physical) 15 = independent __15____ MOBILITY (ON LEVEL SURFACES) 0 = immobile or < 50 yards 5 = wheelchair independent, including corners, > 50 yards 10 = walks with help of one person (verbal or physical) > 50 yards 15 = independent (but may use any aid; for example, stick) > 50 yards __15____ STAIRS 0 = unable 5 = needs help (verbal, physical, carrying aid) 10 = independent __10____ TOTAL (0-100): __100___ documented in this encounter [facility] 08-27-2023 Instructions Familia Roman RN - 08/27/2023 10:15 AM EDT How to contact your team Provider Pollo Angulo MD Nurse Familia Roman RN [phone] In case of an emergency please call 911 Refills When in need of a refill, please call your care team, or the office at [phone] Please include medication name, pharmacy name, and specify 30 or 90 day supply. Please check with your pharmacy within 24 hours of request for your refill. You must follow up as directed to continue current refills. Thank you documented in this encounter [facility] 03-20-2023 History of Present illness Narrative Structural Heart Clinic Visit [facility], Heart & Vascular 03/20/2023 Ximena Archuleta, ELECTRIC MOTOR REPAIR SUPERVISOR [address] [facility] [address] Patient: Sapna Breen Date of : 1950 (72 y.o.) Referring Provider: No ref. provider found PCP: Medardo Robles MD Chief Complaint: Follow-up (6 mo LAAO f/u pt has no complaints today) Date of Service: 03/20/2023 Assessment and Plan: Atrial fibrillation/status post LAAO Watchman FLX Status post LAAO with Watchman FLX 09/14/2022 with a left atrial appendage occluder 27 mm device gang ripsaw operator Dr. Angulo. Has been compliant with dual antiplatelet therapy aspirin and Plavix. Coronary CT [facility] imaging 03/15/2023 showed a well-seated and complete occlusion of the left atrial appendage. No thrombus noticed on device no leak. 12-lead EKG Sinus bradycardia low voltage in precordial leads, old anterior infarct CBC and BMP were completed on 03/05/2023 and reviewed. No change in medications needed based upon results. Follows with Dr. Austin for her primary cardiology needs. Overall patient states she is doing well no active complaints of chest pain, shortness of breath, orthopnea, PND, lightheadedness or dizziness, palpitations, dependent edema, near-syncope/syncope. Plan: 1. Stop Plavix today. Continue indefinitely with aspirin EC 81 mg daily in addition to her other cardiac medication. 2. Follow-up in 6 months to the structural heart clinic for her 1 year post Watchman FLX implantation 3. Continue to follow with Dr. Austin for her primary cardiology needs. It has been a pleasure caring for this patient. Please don't hesitate to reach out to my office directly with any questions or concerns. Follow-up: Return in about 6 months (around 09/18/2023). Ximena Archuleta, MSN, CARDIOPULMONARY TECHNOLOGIST CHIEF, ELECTRIC MOTOR REPAIR SUPERVISOR [facility] P:[phone] F:[phone] History of Present Illness: Sapna Breen is a 72 y.o. woman with a past medical history of paroxysmal atrial fibrillation with a CHADS VASc score of 3, HAS-BLED 3 with previous history of hematuria who was referred to the structural heart clinic by Dr. Austin for consideration of left atrial appendage closure with WATCHMAN device. Presented for elective LAAO on 09/14/22 On 09/14/22 patient underwent successful transcatheter left atrial appendage closure with a WATCHMAN FLX left atrial appendage occluder 27 mm device. The device was deployed without complications. No leak was identified around the device. No pericardial effusion was noted. No increased bleeding from the access site. electric knife operator was Dr. Angulo with co-hot mix operator Dr. Mariscal DELMAR physician, Dr. Antonio. She is here for a 6-month post LAAO Watchman follow-up. Primary steeler is Dr. Austin. Objective Review of Systems: All systems were reviewed and noted to be negative unless otherwise stated in HPI. Past Medical History: Diagnosis Date A-fib (HCC) Hyperlipidemia Hypertension Kidney stone Past Surgical History: Procedure Laterality Date BREAST SURGERY SECTION EP - INTERVENTION N/A 09/14/2022 Procedure: Left Atrial Appendage Closure; Surgeon: Pollo Angulo MD; Location: [facility] SU[facility]; Service: Cardiovascular History reviewed. No pertinent family history. Social History Tobacco Use Smoking Status Never Smokeless Tobacco Never Allergies: Penicillins and Sulfa (sulfonamide antibiotics) All of the above information has been reviewed at today's visit and modified if necessary. Home Medications: Current Outpatient Medications: alendronate (FOSAMAX) 70 MG tablet, Take 1 (one) tablet (70 mg total) by mouth every 7 days (full glass of water on an empty stomach). Remain upright and do not eat for next 30 min ., Disp: , Rfl: allopurinoL (ZYLOPRIM) 100 MG tablet, Take 1 (one) tablet (100 mg total) by mouth daily ., Disp: , Rfl: aspirin 81 MG EC tablet, Take 1 (one) tablet (81 mg total) by mouth daily ., Disp: , Rfl: cholecalciferol, vitamin D3, 1,000 unit tablet, Take 1 (one) tablet (1,000 Units total) by mouth daily ., Disp: , Rfl: colchicine 0.6 mg tablet, Take 1 (one) tablet (0.6 mg total) by mouth daily ., Disp: , Rfl: diltiazem (CARDIZEM CD) 120 MG 24 hr capsule, Take 1 (one) capsule (120 mg total) by mouth daily ., Disp: , Rfl: hydroCHLOROthiazide (HYDRODIURIL) 25 MG tablet, Take 1 (one) tablet (25 mg total) by mouth daily ., Disp: , Rfl: lisinopriL (PRINIVIL,ZESTRIL) 5 MG tablet, Take by mouth daily ., Disp: , Rfl: metoprolol tartrate (LOPRESSOR) 50 MG tablet, Take 1 (one) tablet (50 mg total) by mouth 2 (two) times a day ., Disp: , Rfl: potassium chloride SA (K-DUR,KLOR-CON) 20 MEQ tablet, Take 1 (one) tablet (20 mEq total) by mouth every other day ., Disp: , Rfl: Physical Exam: BP (!) 150/81 Pulse (!) 56 Ht 5' 4 Wt 84.4 kg (186 lb) SpO2 96% BMI 31.93 kg/m Constitutional: Well appearing female, no acute distress Head: Normocephalic and atraumatic. Eyes: Conjunctivae are normal, no scleral icterus, no corneal arcus Neck: No JVD. Cardiovascular: Regular rate and rhythm, no murmurs appreciated on today's exam, normal S1 and S2, no rubs or gallops, PMI is midline Lungs: Clear to auscultation anterior and posterior bilaterally. Pulses: +2 dorsalis pedis pulses bilaterally Musculoskeletal: Normal range of motion. No cyanosis. No peripheral edema Neurological: AOx3, moving all extremities normally Skin: Skin is warm and dry, normal hair pattern Psychiatric: Normal mood and affect, appropriate conversation Cardiovascular Studies: Cardiac morphology CTA prior to cardioversion/status post LAAO 03/15/2023 Left atrial appendage occluder device well-seated with complete occlusion of the left atrial appendage. No thrombus no leak. Limited 2D echocardiogram 09/14/2022 Summary 1. A Limited transthoracic echocardiographic study was performed to reassess pericardial effusion. Complete Doppler exam was not performed. 2. Trivial pericardial effusion. No change from yesterday's transesophageal echo. 3. Grossly normal left ventricular systolic function. 2D echocardiogram 09/05/2022 Summary 1. Left ventricular systolic function is normal with an ejection fraction by Biplane Method of Discs of 64 %. 2. Right ventricular size and systolic function are normal. 3. The left ventricular diastolic function is normal. 4. No significant valvular disease identified. Labs: Lab Results Component Value Date GLUCOSE 131 (H) 03/05/2023 CALCIUM 9.9 03/05/2023 NA 141 03/05/2023 K 3.9 03/05/2023 CL 112 (H) 03/05/2023 BUN 14 03/05/2023 CREATININE 0.81 03/05/2023 Lab Results Component Value Date ALT 58 09/11/2022 AST 28 09/11/2022 ALKPHOS 62 09/11/2022 BILITOT 0.5 09/11/2022 Lab Results Component Value Date WBC 4.52 03/05/2023 HGB 13.4 03/05/2023 HCT 42.2 03/05/2023 MCV 98.1 03/05/2023 PLT 204 03/05/2023 RBC 4.30 03/05/2023 No results found for: CHOL , LDLCALC , LDLDIRECT , TRIG , HDL No results found for: HGBA1C Lab Results Component Value Date ALT 58 09/11/2022 AST 28 09/11/2022 ALKPHOS 62 09/11/2022 BILITOT 0.5 09/11/2022 The ASCVD Risk score (Slim DK, et al., 2019) failed to calculate for the following reasons: Cannot find a previous total cholesterol lab arrived to the Structural Heart ambulatory clinic today accompanied by . Review of allergies, medications, Yung Index, and Modified Rowe Scale has been completed. ____ will be meeting with . The patient has been provided with an educational folder including a 8 [employer] booklet regarding understanding Afib, left atrial appendage, DELMAR/CT, the Watchman procedure, and the pre and post procedure requirements of anticoagulation. Information has been reviewed with the patient regarding pre-left atrial appendage device implant requirements (including information regarding anticoagulation pre and post Watchman implant, potential side effects, and when to seek medical attention). Copy of all instructions, expectations, and testing provided to patient. This nurse also explained post Watchman required follow up per registry. The patient verbalized understanding regarding all instructions and education. MODIFIED NUNU Score Description 0 No symptoms at all 1 No significant disability despite symptoms; able to carry out all usual duties and activities 2 Slight disability; unable to carry out all previous activities, but able to look after own affairs without assistance 3 Moderate disability; requiring some help, but able to walk without assistance 4 Moderately severe disability; unable to walk without assistance and unable to attend to own bodily needs without assistance 5 Severe disability; bedridden, incontinent and requiring constant nursing care and attention 6 TOTAL (0-6): __0 YUNG INDEX Activity Score FEEDING 0 = unable 5 = needs help cutting, spreading butter, etc., or requires modified diet 10 = independent __10____ BATHING 0 = dependent 5 = independent (or in shower) ___5___ GROOMING 0 = needs to help with personal care 5 = independent face/hair/teeth/shaving (implements provided) ___5___ DRESSING 0 = dependent 5 = needs help but can do about half unaided 10 = independent (including buttons, zips, laces, etc.) ___10___ BOWELS 0 = incontinent (or needs to be given enemas) 5 = occasional accident 10 = continent __10____ BLADDER 0 = incontinent, or catheterized and unable to manage alone 5 = occasional accident 10 = continent ___10___ TOILET USE 0 = dependent 5 = needs some help, but can do something alone 10 = independent (on and off, dressing, wiping) _10 TRANSFERS (BED TO CHAIR AND BACK) 0 = unable, no sitting balance 5 = major help (one or two people, physical), can sit 10 = minor help (verbal or physical) 15 = independent __15____ MOBILITY (ON LEVEL SURFACES) 0 = immobile or < 50 yards 5 = wheelchair independent, including corners, > 50 yards 10 = walks with help of one person (verbal or physical) > 50 yards 15 = independent (but may use any aid; for example, stick) > 50 yards _15 STAIRS 0 = unable 5 = needs help (verbal, physical, carrying aid) 10 = independent ___10___ TOTAL (0-100): ___100___ documented in this encounter [facility] 03-20-2023 Instructions Jack Escobar RN - 03/20/2023 9:21 AM EDT ..How to contact your Care Team: Provider: Pollo Angulo MD Nurse: Jack Escobar RN In case of an emergency please call 911. REFILLS: When in need for refills please call your care team or the office at [phone]. Please include medication name, pharmacy name, and specify 30-day or 90-day supply. Please check with your pharmacy within 24 hours of request for your refill. You must follow up as directed to continue current refills. Thank you documented in this encounter [facility] 03-02-2023 History of Present illness Narrative Returned call to pt regarding VM received requesting call back. Sapna states she has a CT scan scheduled 03/15 and wanted to make sure lab orders were in for pre-scan blood work needed. Informed Sapna orders are already in for labs needed prior to the scan and she can go to any [facility] lab to have drawn prior to the . Verbalizes understanding and thankful for call. documented in this encounter [facility] 11-17-2022 Hospital Discharge instructions Patient Education 11/17/2022 10:40:30 Kidney Stones, Eikr-[id number] Kidney Stones Kidney stones are rock-like masses that form inside of the kidneys. Kidneys are organs that make pee (urine). A kidney stone may move into other parts of the urinary tract, including: The tubes that connect the kidneys to the bladder (ureters). The bladder. The tube that carries urine out of the body (urethra). Kidney stones can cause very bad pain and can block the flow of pee. The stone usually leaves your body (passes) through your pee. You may need to have a doctor take out the stone. What are the causes? Kidney stones may be caused by: A condition in which certain glands make too much parathyroid hormone (primary hyperparathyroidism). A buildup of a type of crystals in the bladder made of a chemical called uric acid. The body makes uric acid when you eat certain foods. Narrowing (stricture) of one or both of the ureters. A kidney blockage that you were born with. Past surgery on the kidney or the ureters, such as gastric bypass surgery. What increases the risk? You are more likely to develop this condition if: You have had a kidney stone in the past. You have a family history of kidney stones. You do not drink enough water. You eat a diet that is high in protein, salt (sodium), or sugar. You are overweight or very overweight (obese). What are the signs or symptoms? Symptoms of a kidney stone may include: Pain in the side of the belly, right below the ribs (flank pain). Pain usually spreads (radiates) to the groin. Needing to pee often or right away (urgently). Pain when going pee (urinating). Blood in your pee (hematuria). Feeling like you may vomit (nauseous). Vomiting. Fever and chills. How is this treated? Treatment depends on the size, location, and makeup of the kidney stones. The stones will often pass out of the body through peeing. You may need to: Drink more fluid to help pass the stone. In some cases, you may be given fluids through an IV tube put into one of your veins at the hospital. Take medicine for pain. Make changes in your diet to help keep kidney stones from coming back. Sometimes, medical procedures are needed to remove a kidney stone. This may involve: A procedure to break up kidney stones using a beam of light (laser) or shock waves. Surgery to remove the kidney stones. Follow these instructions at home: Medicines Take [id number] and prescription medicines only as told by your doctor. Ask your doctor if the medicine prescribed to you requires you to avoid driving or using heavy machinery. Eating and drinking Drink enough fluid to keep your pee pale yellow. You may be told to drink at least 8 10 glasses of water each day. This will help you pass the stone. If told by your doctor, change your diet. This may include: ?Limiting how much salt you eat. ?Eating more fruits and vegetables. ?Limiting how much meat, poultry, fish, and eggs you eat. Follow instructions from your doctor about eating or drinking restrictions. General instructions Collect pee samples as told by your doctor. You may need to collect a pee sample: ?24 hours after a stone comes out. ?8 12 weeks after a stone comes out, and every 6 12 months after that. Strain your pee every time you pee (urinate), for as long as told. Use the strainer that your doctor recommends. Do not throw out the stone. Keep it so that it can be tested by your doctor. Keep all follow-up visits as told by your doctor. This is important. You may need follow-up tests. How is this prevented? To prevent another kidney stone: Drink enough fluid to keep your pee pale yellow. This is the best way to prevent kidney stones. Eat healthy foods. Avoid certain foods as told by your doctor. You may be told to eat less protein. Stay at a healthy weight. Where to find more information National Kidney Foundation (NKF): www.kidney.org [employer] (UCF): www.urologyhealth.org Contact a doctor if: You have pain that gets worse or does not get better with medicine. Get help right away if: You have a fever or chills. You get very bad pain. You get new pain in your belly (abdomen). You pass out (faint). You cannot pee. Summary Kidney stones are rock-like masses that form inside of the kidneys. Kidney stones can cause very bad pain and can block the flow of pee. The stones will often pass out of the body through peeing. Drink enough fluid to keep your pee pale yellow. This information is not intended to replace advice given to you by your health care provider. Make sure you discuss any questions you have with your health care provider. Document Revised: 01/09/2022 Document Reviewed: 01/09/2022 [employer] Patient Education 2022 [employer]. Follow Up Care 08/23/2022 12:57:26 With:SANDRA SAMSON, Rachel Peña, URL Address: [address] [place] [address]- When:Within 1 Year(s) Comments:[employer] [facility] 11-06-2022 History of Present illness Narrative Structural Cardiology Returning Patient Clinic Visit [facility], Heart [facility] Vascular 11/06/2022 Ximena Archuleta, ELECTRIC MOTOR REPAIR SUPERVISOR [address] [facility] [phone] [facility]ician [facility], physician's office 11/06/2022 Patient: Sapna Breen Date of : 1950 (71 y.o.) Referring Provider: No ref. provider found PCP: Medardo Robles MD Chief Complaint: Follow-up (Patient has no new cardiac concerns today ) Date of Service: 11/06/2022 Assessment and Plan: Atrial fibrillation Status post LAAO with watchman 09/14/2022 with a left atrial appendage occluder 27 mm device gang ripsaw operator Dr. Adele Hernandez She has been compliant with dual antiplatelet therapy (aspirin and Plavix). She is scheduled for coronary CT [facility] imaging 03/15/2023 and has an already scheduled 6-month LAAO watchman follow-up 03/20/2023. Patient states he is doing very well without any active complaints of chest pain, shortness of breath, orthopnea, PND, lightheadedness or dizziness, palpitations, near-syncope/syncope. Right groin has healed well without any issue. She does follow with primary steeler, Dr. Austin. Plan: 1. She will continue her dual antiplatelet therapy with aspirin and Plavix. She will continue Cardizem CD 120 mg daily, hydrochlorothiazide 25 mg daily, lisinopril 5 mg daily, metoprolol tartrate 50 mg twice a day and K-Dur 20 mill equivalents daily. 2. CT [facility]ION study is scheduled for February 2023. She will follow-up with the structural heart clinic in 6 months for her 6-month LAAO Watchman follow-up. 3. CBC and basic metabolic panel to be completed today. It has been a pleasure caring for this patient. Please don't hesitate to reach out to my office directly with any questions or concerns. Follow-up: No follow-ups on file. Ximena Archuleta, MSN, CARDIOPULMONARY TECHNOLOGIST CHIEF, ELECTRIC MOTOR REPAIR SUPERVISOR [facility] P:[phone] F:[phone] History of Present Illness: Sapna Breen is a 71 y.o. woman with a past medical history of paroxysmal atrial fibrillation with a CHADS VASc score of 3, HAS-BLED 3 with previous history of hematuria who was referred to the structural heart clinic by Dr. Austin for consideration of left atrial appendage closure with WATCHMAN device. Presented for elective LAAO on 09/14/22 On 09/14/22 patient underwent successful transcatheter left atrial appendage closure with a WATCHMAN FLX left atrial appendage occluder 27 mm device. The device was deployed without complications. No leak was identified around the device. No pericardial effusion was noted. No increased bleeding from the access site. electric knife operator was Dr. Angulo with co-hot mix operator Dr. Mariscal DELMAR physician, Dr. Antonio Post procedure echocardiogram showed no pericardial effusion. Post procedure chest x-ray showed no acute cardiopulmonary abnormality. Objective Review of Systems: All systems were reviewed and noted to be negative unless otherwise stated in HPI. Past Medical History: Diagnosis Date A-fib (HCC) Hyperlipidemia Hypertension Kidney stone Past Surgical History: Procedure Laterality Date BREAST SURGERY SECTION EP - INTERVENTION N/A 09/14/2022 Procedure: Left Atrial Appendage Closure; Surgeon: Pollo Angulo MD; Location: [facility]; Service: Cardiovascular History reviewed. No pertinent family history. Social History Tobacco Use Smoking Status Never Smokeless Tobacco Never Allergies: Penicillins and Sulfa (sulfonamide antibiotics) All of the above information has been reviewed at today's visit and modified if necessary. Home Medications: Current Outpatient Medications: alendronate (FOSAMAX) 70 MG tablet, Take 1 (one) tablet (70 mg total) by mouth every 7 days (full glass of water on an empty stomach). Remain upright and do not eat for next 30 min ., Disp: , Rfl: allopurinoL (ZYLOPRIM) 100 MG tablet, Take 1 (one) tablet (100 mg total) by mouth daily ., Disp: , Rfl: aspirin 81 MG EC tablet, Take 1 (one) tablet (81 mg total) by mouth daily ., Disp: , Rfl: cholecalciferol, vitamin D3, 1,000 unit tablet, Take 1 (one) tablet (1,000 Units total) by mouth daily ., Disp: , Rfl: clopidogreL (PLAVIX) 75 mg tablet, Take 1 (one) tablet (75 mg total) by mouth daily Start: 09/16/22., Disp: 30 tablet, Rfl: 3 colchicine 0.6 mg tablet, Take 1 (one) tablet (0.6 mg total) by mouth daily ., Disp: , Rfl: diltiazem (CARDIZEM CD) 120 MG 24 hr capsule, Take 1 (one) capsule (120 mg total) by mouth daily ., Disp: , Rfl: hydroCHLOROthiazide (HYDRODIURIL) 25 MG tablet, Take 1 (one) tablet (25 mg total) by mouth daily ., Disp: , Rfl: lisinopriL (PRINIVIL,ZESTRIL) 5 MG tablet, Take by mouth daily ., Disp: , Rfl: metoprolol tartrate (LOPRESSOR) 50 MG tablet, Take 1 (one) tablet (50 mg total) by mouth 2 (two) times a day ., Disp: , Rfl: potassium chloride SA (K-DUR,KLOR-CON) 20 MEQ tablet, Take 1 (one) tablet (20 mEq total) by mouth every other day ., Disp: , Rfl: Physical Exam: BP 125/80 (BP Location: Left arm, Patient Position: Sitting) Pulse 64 Wt 83.9 kg (185 lb) SpO2 95% BMI 31.76 kg/m Constitutional: Well appearing female, no acute distress Head: Normocephalic and atraumatic. Eyes: Conjunctivae are normal, no scleral icterus, no corneal arcus Neck: No acanthosis nigricans, no elevated jugular venous distension, no hepatojugular reflux Cardiovascular: Regular rate and rhythm, no murmurs appreciated on today's exam, normal S1 and S2, no rubs or gallops, PMI is midline Pulses: +2 dorsalis pedis pulses bilaterally Musculoskeletal: Normal range of motion. No cyanosis. No peripheral Edema Neurological: AOx3, moving all extremities normally Skin: Skin is warm and dry, normal hair pattern Psychiatric: Normal mood and affect, appropriate conversation Cardiovascular Studies: Limited 2D echocardiogram 09/14/2022 Summary 1. A Limited transthoracic echocardiographic study was performed to reassess pericardial effusion. Complete Doppler exam was not performed. 2. Trivial pericardial effusion. No change from yesterday's transesophageal echo. 3. Grossly normal left ventricular systolic function. 2D echocardiogram 09/05/2022 Summary 1. Left ventricular systolic function is normal with an ejection fraction by Biplane Method of Discs of 64 %. 2. Right ventricular size and systolic function are normal. 3. The left ventricular diastolic function is normal. 4. No significant valvular disease identified. Labs: Lab Results Component Value Date GLUCOSE 167 (H) 09/15/2022 CALCIUM 9.6 09/15/2022 NA 143 09/15/2022 K 4.2 09/15/2022 CL 113 (H) 09/15/2022 BUN 16 09/15/2022 CREATININE 0.78 09/15/2022 Lab Results Component Value Date ALT 58 09/11/2022 AST 28 09/11/2022 ALKPHOS 62 09/11/2022 BILITOT 0.5 09/11/2022 Lab Results Component Value Date WBC 8.22 09/15/2022 HGB 11.8 (L) 09/15/2022 HCT 36.9 09/15/2022 MCV 97.1 09/15/2022 PLT 199 09/15/2022 RBC 3.80 (L) 09/15/2022 No results found for: CHOL , LDLCALC , LDLDIRECT , TRIG , HDL No results found for: HGBA1C Lab Results Component Value Date ALT 58 09/11/2022 AST 28 09/11/2022 ALKPHOS 62 09/11/2022 BILITOT 0.5 09/11/2022 The ASCVD Risk score (Slim FUNEZ, et al., 2019) failed to calculate for the following reasons: Cannot find a previous total cholesterol lab MODIFIED NUNU Score Description 0 No symptoms at all 1 No significant disability despite symptoms; able to carry out all usual duties and activities 2 Slight disability; unable to carry out all previous activities, but able to look after own affairs without assistance 3 Moderate disability; requiring some help, but able to walk without assistance 4 Moderately severe disability; unable to walk without assistance and unable to attend to own bodily needs without assistance 5 Severe disability; bedridden, incontinent and requiring constant nursing care and attention 6 TOTAL (0-6): ___0____ YUNG INDEX Activity Score FEEDING 0 = unable 5 = needs help cutting, spreading butter, etc., or requires modified diet 10 = independent ___10___ BATHING 0 = dependent 5 = independent (or in shower) _5 GROOMING 0 = needs to help with personal care 5 = independent face/hair/teeth/shaving (implements provided) ___5___ DRESSING 0 = dependent 5 = needs help but can do about half unaided 10 = independent (including buttons, zips, laces, etc.) ___10___ BOWELS 0 = incontinent (or needs to be given enemas) 5 = occasional accident 10 = continent __10____ BLADDER 0 = incontinent, or catheterized and unable to manage alone 5 = occasional accident 10 = continent ___10___ TOILET USE 0 = dependent 5 = needs some help, but can do something alone 10 = independent (on and off, dressing, wiping) _10 TRANSFERS (BED TO CHAIR AND BACK) 0 = unable, no sitting balance 5 = major help (one or two people, physical), can sit 10 = minor help (verbal or physical) 15 = independent __15____ MOBILITY (ON LEVEL SURFACES) 0 = immobile or < 50 yards 5 = wheelchair independent, including corners, > 50 yards 10 = walks with help of one person (verbal or physical) > 50 yards 15 = independent (but may use any aid; for example, stick) > 50 yards __15____ STAIRS 0 = unable 5 = needs help (verbal, physical, carrying aid) 10 = independent __10____ TOTAL (0-100): __100____ documented in this encounter [facility] 10-26-2022 Instructions Jack Escobar RN - 10/26/2022 1:36 PM EDT ..How to contact your Care Team: Provider: Pollo Angulo MD Nurse: Jack Escobar RN In case of an emergency please call 911. REFILLS: When in need for refills please call your care team or the office at [phone]. Please include medication name, pharmacy name, and specify 30-day or 90-day supply. Please check with your pharmacy within 24 hours of request for your refill. You must follow up as directed to continue current refills. Thank you Post LAAO CT You are scheduled for a post LAAO CT scan, on ____03/15 at [facility]. Please arrive at the Short Term Care Unit at 845a . Your physician requires blood work prior to your scan, we will place an order for the blood work that may be performed at the [facility] lab of your choice within 1-2 weeks prior to the scan. Procedure Descriptions: You must be able to lie flat on your back for the duration of the exam. A non-ionic contrast material will be injected through and IC into the arm or hand. This contrast will enable the blood vessels to be visualized as well as measure the size of your left atrial appendage. Patient Preparation: 1. If you have had previous reaction to iodinated contrast (IV Dye), contact us immediately. If you have an IV dye/contrast allergy, please take prescribed prednisone (50 mg) @ 13 hours prior , again at 7 hours prior, and again @ 1 hour prior to your scan. You will also need to bring benadryl 50 mg with you the day of your test to take 1 hour prior to the test. 2. Patient must be cooperative and able to follow instructions. 3. Diabetics on oral hypoglycemic such as: Metformin, Glucophage, Kazano, Invokamet, Xigduo XR, Synjardy, Glipizide, Gluocvance, Jentadueto, Actoplus, Prandimet, Avandamet, Janumet must be screened prior to the test with blood work to check kidney function. Please hold this medication the morning of the test, and for two additional days after the test. 4. Remove all jewelry from all parts of the body. 5. Wear comfortable clothing and shoes. 6. You may eat prior to the scan. Medications may be taken. Please drink a few extra glasses that morning and/or prior to your scan to ensure you are properly hydrated. documented in this encounter [facility] 09-15-2022 Hospital course Narrative DISCHARGE SUMMARY Patient: Sapna Breen Account: [id number] Admitted: 09/14/2022 Discharge Date/Time: 09/15/2022 Clinical Summary Hospital Course: Sapna Breen is a 71 y.o. female patient with a history of paroxysmal atrial fibrillation with a CHADS VASc score of 3, HAS-BLED 3 with previous history of hematuria who was referred to the structural heart clinic by Dr. Austin for consideration of left atrial appendage closure with WATCHMAN device. Presented for elective LAAO on 09/14/22 On 09/14/22 patient underwent successful transcatheter left atrial appendage closure with a WATCHMAN FLX left atrial appendage occluder 27 mm device. The device was deployed without complications. No leak was identified around the device. No pericardial effusion was noted. No increased bleeding from the access site. electric knife operator was Dr. Angulo with co-hot mix operator Dr. Mariscal DELMAR physician, Dr. Antonio Post procedure echocardiogram showed no pericardial effusion. Post procedure chest x-ray showed no acute cardiopulmonary abnormality. It is medically necessary that a patient that is undergoing transcatheter left atrial appendage closure have the procedure performed as an inpatient. She was kept overnight for observation. She is doing well without any active complaints of chest pain, shortness of breath, orthopnea, PND, dependent edema, lightheadedness or dizziness, palpitations. Denies discomfort at the right femoral access site. Patient remained hemodynamically stable post procedure. No neurovascular compromise noted to right lower extremity. Discharge Diagnoses: PAF S/P Watchman device Successful LAAO with WATCHMAN FLX left atrial appendage occluder 27 mm device Anticoagulation with Aspirin 81 mg daily and Plavix [address] will be performed ~ 6 months to assess device position and leak. If there is no significant leak, she will be dropped down to single antiplatelet therapy. Follow-up will be arranged to the structural heart clinic. Procedures: LAAO closure device Other Tests: Procedures Echocardiogram intraop DELMAR guidance Cardiac Catheterization LAST LABS: Results from last 7 days Lab Units 09/11/22 1016 SODIUM mmol/L 138 POTASSIUM mmol/L 3.9 CHLORIDE mmol/L 113* BUN mg/dL 11 CREATININE mg/dL 0.76 GLUCOSE mg/dL 125* CALCIUM mg/dL 9.6 Results from last 7 days Lab Units 09/11/22 1016 ALK PHOS U/L 62 BILIRUBIN TOTAL mg/dL 0.5 TOTAL PROTEIN g/dL 7.2 ALTR U/L 58 AST U/L 28 Results from last 7 days Lab Units 09/11/22 1016 INR 2.4* Results from last 7 days Lab Units 09/11/22 1016 WBC K/mcL 4.62 HGB g/dL 13.2 HCT % 41.1 PLT K/mcL 228 Allergies: Penicillins and Sulfa (sulfonamide antibiotics) Discharge Diet: Cardiac diet Disposition: Home Discharge Medications CHANGE how you take these medications clopidogreL 75 mg tablet Commonly known as: PLAVIX Take 1 (one) tablet (75 mg total) by mouth daily Start: 09/16/22. Start taking on: September 16, 2022 What changed: how much to take how to take this when to take this additional instructions CONTINUE taking these medications alendronate 70 MG tablet Commonly known as: FOSAMAX allopurinoL 100 MG tablet Commonly known as: ZYLOPRIM aspirin 81 MG EC tablet cholecalciferol (vitamin D3) 1,000 unit tablet colchicine 0.6 mg tablet diltiazem 120 MG 24 hr capsule Commonly known as: CARDIZEM CD hydroCHLOROthiazide 25 MG tablet Commonly known as: HYDRODIURIL lisinopriL 5 MG tablet Commonly known as: PRINIVIL,ZESTRIL metoprolol tartrate 50 MG tablet Commonly known as: LOPRESSOR potassium chloride SA 20 MEQ tablet Commonly known as: K-DUR,KLOR-CON STOP taking these medications Xarelto 15 mg Tab Generic drug: rivaroxaban Where to Get Your Medications These medications were sent to [id number] - [place], [place] - [address] [facility] [address] [facility] [id number] clopidogreL 75 mg tablet Physician(s) Family: Medardo Robles MD, , Address: [address] [place] [address] / Critical access hospital [id number] Follow Up: Kathya Archuleta CNP 11/06/22 10:30 a.m. Patient instructions, including activity, were given to the patient/family at discharge. Please see the After Visit Summary in the medical record for details. Time spent on discharge: < 30 minutes Completed by: Mandie Zayas on 09/15/22, 9:35 AM documented in this encounter [facility] 09-14-2022 Note Formatting of this n ote might be different from the original. Problem: Actual or potential alteration in health Goal: Absence of healthcare acquired conditions Outcome: Partially Met Goal: Knowledge of Interdisciplinary Plan of Care Outcome: Partially Met Goal: Knowledge of Enviroment Outcome: Partially Met [facility] 09-14-2022 Miscellaneous Notes Problem: Actual or potential alteration in health Goal: Absence of healthcare acquired conditions Outcome: Partially Met Goal: Knowledge of Interdisciplinary Plan of Care Outcome: Partially Met Goal: Knowledge of Enviroment Outcome: Partially Met Problem: Actual or potential alteration in health Goal: Absence of healthcare acquired conditions Outcome: Partially Met Goal: Knowledge of Interdisciplinary Plan of Care Outcome: Partially Met Goal: Knowledge of Enviroment Outcome: Partially Met documented in this encounter [facility] 09-14-2022 Note Formatting of this n ote might be different from the original. Problem: Actual or potential alteration in health Goal: Absence of healthcare acquired conditions Outcome: Partially Met Goal: Knowledge of Interdisciplinary Plan of Care Outcome: Partially Met Goal: Knowledge of Enviroment Outcome: Partially Met [facility] 09-14-2022 Note CARDIAC CATHETERIZAT ION Date of Procedure: 09/14/22 Assembly Technician and Supervising Physician: Pollo Angulo MD Viscosity Worker: Austin Mariscal MD Name of Procedures: Percutaneous transcatheter closure of the left atrial appendage with Watchman FLX left atrial appendage occluder 27 mm device (CPT Code 15489, ICD 10 procedure code [id number]) for the treatment of a patient with unspecified (I40.9) atrial fibrillation. (DRG code 273 or 274) Medications: General anesthesia provided by Dr. Paolo Cannon MD Indication for Procedure: A 71 y.o. female with history of atrial fibrillation. The patient has a CHADS score of 3 and cannot take assisted anticoagulation due to hematuria Prior to implantation of the device the patient met with Dr. Faustino Yi MD to discuss non-interventional, pharmacologic options to stroke prevention. No qualified Resident was available to assist in the case therefore due to the complexity,Austin Mariscal MD was utilized as my golf course assistant Description of Procedure: Following informed consent, the patient was brought to the cardiac catheterization laboratory and placed under general anesthesia by Dr. Paolo Cannon MD. A transesophageal echocardiographic probe was advanced into the mid-esophagus by Dr Michelle Antonio MD with baseline images including left atrial appendage size measurement and color flow Doppler performed. There was no evidence of left atrial or LA appendage thrombus and therefore the decision was made to proceed with the procedure. A 5F micropuncture kit was used to access the femoral vein with sheath placement as follows: * 6F Terumo sheath was introduced into the right femoral vein followed by placement of perclose suture for subsequent closure. We then advanced a 0.032-inch Versacross-wire into the SVC and exchanged out the Proglide sheath for a Fortson sheath with a transseptal needle. Under fluoroscopic and echocardiographic images, the Danielito versacross transseptal needle was used to perform transseptal puncture across the inter-atrial septum. The Fortson sheath was advanced into the left atrium and the dilator to dilate the septum and then removed from the body. Heparin was then administered for full anticoagulation with intermittent monitoring of ACT. The Fortson sheath was exchanged out for a 14-Yemeni Atrite Watchman sheath, which was placed in the left atrium. A 6-Yemeni pigtail catheter was advanced into the sheath and the stiff wire was then removed. Under fluoroscopic and echocardiographic guidance, the pigtail catheter was then placed selectively in the left atrial appendage and multiple angiographic images were obtained. We then advanced the 14-Yemeni Atrite sheath into the left atrial appendage and removed the pigtail catheter from the body. We then advanced a 27-mm Watchman FLX atrial appendage closure device into position. We then deployed the device in the left atrial appendage under fluoroscopic and echocardiographic guidance using the standard technique. A tug-test was performed confirming stability of the device. After angiography and echocardiography did not show evidence of leak, the device was released. The 14-Yemeni sheath was removed and hemostasis was achieved using a Perclose intravascular suture. The patient tolerated the procedure well. Complications: None Total amount of contrast: 20 cc Visipaque contrast Hemodynamics: LA pressure: A wave 13, V wave 15, mean LA 8 DELMAR Measurements: Left Atrial Orifice Maximum Width Pre-Device Deployment: 21 mm @ 135 degrees Left Atrial Occluder Maximum Width Post-Device Deployement: 21 mm @ 90 degrees Post-Device Deployment Margin Residual Leak: 0 mm Device Used: Watchman left atrial appendage occluder 27 mm; LOT# [id number] Summary: The following findings were noted on this study. Successful placement of Watchman FLX left atrial appendage occluder 27 mm device. Our recommendations based on the above mentioned findings are: 1. The patient will be sent to a monitored unit 2. The patient will be started on Aspirin 81mg daily and Plavix for 6 months. The entire procedure was performed with and interpretation verified by Pollo Angulo MD [facility] 09-14-2022 Note CARDIAC CATHETERIZAT ION Date of Procedure: 09/14/22 Assembly Technician and Supervising Physician: Pollo Angulo MD Viscosity Worker: Austin Mariscal MD Name of Procedures: Percutaneous transcatheter closure of the left atrial appendage with Watchman FLX left atrial appendage occluder 27 mm device (CPT Code 90090, ICD 10 procedure code [id number]) for the treatment of a patient with unspecified (I40.9) atrial fibrillation. (DRG code 273 or 274) Medications: General anesthesia provided by Dr. Paolo Cannon MD Indication for Procedure: A 71 y.o. female with history of atrial fibrillation. The patient has a CHADS score of 3 and cannot take assisted anticoagulation due to hematuria Prior to implantation of the device the patient met with Dr. Faustino Yi MD to discuss non-interventional, pharmacologic options to stroke prevention. No qualified Resident was available to assist in the case therefore due to the complexity,Austin Mariscal MD was utilized as my golf course assistant Description of Procedure: Following informed consent, the patient was brought to the cardiac catheterization laboratory and placed under general anesthesia by Dr. Paolo Cannon MD. A transesophageal echocardiographic probe was advanced into the mid-esophagus by Dr Michelle Antonio MD with baseline images including left atrial appendage size measurement and color flow Doppler performed. There was no evidence of left atrial or LA appendage thrombus and therefore the decision was made to proceed with the procedure. A 5F micropuncture kit was used to access the femoral vein with sheath placement as follows: * 6F Terumo sheath was introduced into the right femoral vein followed by placement of perclose suture for subsequent closure. We then advanced a 0.032-inch Versacross-wire into the SVC and exchanged out the Proglide sheath for a Fortson sheath with a transseptal needle. Under fluoroscopic and echocardiographic images, the Danielito versacross transseptal needle was used to perform transseptal puncture across the inter-atrial septum. The Fortson sheath was advanced into the left atrium and the dilator to dilate the septum and then removed from the body. Heparin was then administered for full anticoagulation with intermittent monitoring of ACT. The Fortson sheath was exchanged out for a 14-Yemeni Atrite Watchman sheath, which was placed in the left atrium. A 6-Yemeni pigtail catheter was advanced into the sheath and the stiff wire was then removed. Under fluoroscopic and echocardiographic guidance, the pigtail catheter was then placed selectively in the left atrial appendage and multiple angiographic images were obtained. We then advanced the 14-Yemeni Atrite sheath into the left atrial appendage and removed the pigtail catheter from the body. We then advanced a 27-mm Watchman FLX atrial appendage closure device into position. We then deployed the device in the left atrial appendage under fluoroscopic and echocardiographic guidance using the standard technique. A tug-test was performed confirming stability of the device. After angiography and echocardiography did not show evidence of leak, the device was released. The 14-Yemeni sheath was removed and hemostasis was achieved using a Perclose intravascular suture. The patient tolerated the procedure well. Complications: None Total amount of contrast: 20 cc Visipaque contrast Hemodynamics: LA pressure: A wave 13, V wave 15, mean LA 8 DELMAR Measurements: Left Atrial Orifice Maximum Width Pre-Device Deployment: 21 mm @ 135 degrees Left Atrial Occluder Maximum Width Post-Device Deployement: 21 mm @ 90 degrees Post-Device Deployment Margin Residual Leak: 0 mm Device Used: Watchman left atrial appendage occluder 27 mm; LOT# [id number] Summary: The following findings were noted on this study. Successful placement of Watchman FLX left atrial appendage occluder 27 mm device. Our recommendations based on the above mentioned findings are: 1. The patient will be sent to a monitored unit 2. The patient will be started on Aspirin 81mg daily and Plavix for 6 months. The entire procedure was performed with and interpretation verified by Pollo Angulo MD [facility] 09-14-2022 History of Present illness Narrative MODIFIED NUNU Score Description 0 No symptoms at all 1 No significant disability despite symptoms; able to carry out all usual duties and activities 2 Slight disability; unable to carry out all previous activities, but able to look after own affairs without assistance 3 Moderate disability; requiring some help, but able to walk without assistance 4 Moderately severe disability; unable to walk without assistance and unable to attend to own bodily needs without assistance 5 Severe disability; bedridden, incontinent and requiring constant nursing care and attention 6 TOTAL (0-6): ___0____ YUNG INDEX Activity Score FEEDING 0 = unable 5 = needs help cutting, spreading butter, etc., or requires modified diet 10 = independent ___10___ BATHING 0 = dependent 5 = independent (or in shower) _5 GROOMING 0 = needs to help with personal care 5 = independent face/hair/teeth/shaving (implements provided) ___5___ DRESSING 0 = dependent 5 = needs help but can do about half unaided 10 = independent (including buttons, zips, laces, etc.) ___10___ BOWELS 0 = incontinent (or needs to be given enemas) 5 = occasional accident 10 = continent __10____ BLADDER 0 = incontinent, or catheterized and unable to manage alone 5 = occasional accident 10 = continent ___10___ TOILET USE 0 = dependent 5 = needs some help, but can do something alone 10 = independent (on and off, dressing, wiping) _10 TRANSFERS (BED TO CHAIR AND BACK) 0 = unable, no sitting balance 5 = major help (one or two people, physical), can sit 10 = minor help (verbal or physical) 15 = independent __15____ MOBILITY (ON LEVEL SURFACES) 0 = immobile or < 50 yards 5 = wheelchair independent, including corners, > 50 yards 10 = walks with help of one person (verbal or physical) > 50 yards 15 = independent (but may use any aid; for example, stick) > 50 yards __15____ STAIRS 0 = unable 5 = needs help (verbal, physical, carrying aid) 10 = independent __10____ TOTAL (0-100): __100____ documented in this encounter [facility] 09-14-2022 Attending History and physical note INTERVAL HISTORY AND PHYSICAL Patient Name: Sapna Breen Admit Date: [id number] MR #: [id number] : 1950 The H&P has been reviewed and the patient has been examined. I concur with the findings of the H&P. There are no significant changes. It is appropriate to proceed with the planned procedure. The risks and benefits of cardiac catheterization was explained. The risks reviewed includes but not limited to vascular damage, hematoma, infection, tamponade, allergic/anaphylactic reaction, acute renal insufficiency, need for emergency surgery, SC, stroke, or cardiac arrest/. Patient voiced understanding and agreed to proceed. Pollo Angulo MD 09/14/2022 10:09 AM Source Note - Pollo Angulo MD - 08/22/2022 8:14 AM EDT Structural Heart Disease Clinic Consult Heart & Vascular [facility] 08/22/2022 Pollo Angulo MD [address] [facility] [id number] Patient: Sapna Breen Date of : 1950 (71 y.o.) Referring Provider: No ref. provider found PCP: Medardo Robles MD Problem List Items Addressed This Visit None Visit Diagnoses Atrial fibrillation, unspecified type (HCC) - Primary Relevant Medications aspirin 81 MG EC tablet Other Relevant Orders ECG 12 lead (Completed) Essential hypertension #1 paroxysmal atrial fibrillation Patient has had paroxysmal atrial fibrillation for several years now. Her heart rate is well controlled on beta-brice. Her [id number] score is 3 giving an annual stroke risk around 4.5% without any anticoagulation. Her HAS-BLED score is also 3 giving an annual risk of bleeding on any anticoagulant about 6%. Moreover she has been off anticoagulation because of previous history of bleeding. She would be therefore someone who needs to be on either oral anticoagulation or an alternate therapy. Given high HAS-BLED score and prior history of hematuria. She would be an ideal candidate to consider for left atrial appendage closure with either amulet or watchman device. Explained to the patient what is the pathophysiology of stroke in people with A. fib and available options. Explained to her the risk and benefits of undergoing left atrial appendage closure. Risk include but not limited to risk of bleeding infection stroke SC or need for emergent open heart surgery. Patient and her family fully understood the procedure and associated risk and agreed to proceed further. In meanwhile have advised patient to continue oral anticoagulation with Xarelto while waiting for procedure she is to continue with Lopressor for rate control Follow-up: No follow-ups on file. Chief Complaint: Follow-up Subjective History of Present Illness: Sapna Breen is a 71 y.o. female with known history of paroxysmal atrial fibrillation for several years, hypertension hyperlipidemia was referred by her primary cardiology structural heart team for consideration of left atrial appendage closure. Patient has been taking Xarelto for many years but of late has noticed that she has been having hematuria every time she takes Xarelto. When this was discontinued her symptoms had resolved. I believe for the evaluation of hematuria has so 5 failed to yield a cause. When she resumed her Xarelto her hematuria came back. Therefore she was referred to structural heart team for further evaluation for appendage closure. She otherwise has no other complaints to me today in the clinic. No other complaints of exertional chest pains or shortness of breath orthopnea or PND intermittent leg swelling yes but no complains of any palpitations presyncope or syncope. No recent fever cough chills nausea vomiting diarrhea headache or any visual disturbances. There is no past medical history of any CAD SC stroke diabetes or known peripheral arterial disease Non-smoker lifelong Family history of CAD in her brother who had SC and mother had some heart disease that she is unsure of Objective Imaging: I independently reviewed the EKG and agree with the interpretation(s) with the following comments. NSR ECG 12 lead Final Result by Arron Vizcarra MA (08/22/2022 2314) Past Medical History: Diagnosis Date A-fib (HCC) Hyperlipidemia Hypertension Kidney stone Past Surgical History: Procedure Laterality Date BREAST SURGERY SECTION History reviewed. No pertinent family history. Social History Tobacco Use Smoking Status Never Smokeless Tobacco Never Vaping Use Vaping Status Never Used Passive vaping exposure: Yes Allergies: Penicillins and Sulfa (sulfonamide antibiotics) HOME Medications: Current Outpatient Medications on File Prior to Visit Medication Sig alendronate (FOSAMAX) 70 MG tablet Take 1 (one) tablet (70 mg total) by mouth every 7 days (full glass of water on an empty stomach). Remain upright and do not eat for next 30 min . allopurinoL (ZYLOPRIM) 100 MG tablet Take 1 (one) tablet (100 mg total) by mouth daily . aspirin 81 MG EC tablet Take 1 (one) tablet (81 mg total) by mouth daily . cholecalciferol, vitamin D3, 1,000 unit tablet Take 1 (one) tablet (1,000 Units total) by mouth daily . colchicine 0.6 mg tablet Take 1 (one) tablet (0.6 mg total) by mouth daily . diltiazem (CARDIZEM CD) 120 MG 24 hr capsule Take 1 (one) capsule (120 mg total) by mouth daily . hydroCHLOROthiazide (HYDRODIURIL) 25 MG tablet Take 1 (one) tablet (25 mg total) by mouth daily . lisinopriL (PRINIVIL,ZESTRIL) 5 MG tablet Take by mouth daily . metoprolol tartrate (LOPRESSOR) 50 MG tablet Take 1 (one) tablet (50 mg total) by mouth 2 (two) times a day . potassium chloride SA (K-DUR,KLOR-CON) 20 MEQ tablet Take 1 (one) tablet (20 mEq total) by mouth every other day . rivaroxaban (Xarelto) 15 mg Tab Take 1 (one) tablet (15 mg total) by mouth once . No current facility-administered medications on file prior to visit. Vital Signs: BP (!) 147/86 (BP Location: Left arm) Pulse 61 Wt 85 kg (187 lb 6.4 oz) SpO2 95% Physical Exam Constitutional: Appearance: Normal appearance. She is well-developed. She is not diaphoretic. Neck: Thyroid: No thyromegaly. Vascular: No JVD. Trachea: No tracheal deviation. Cardiovascular: Rate and Rhythm: Normal rate and regular rhythm. Pulses: Intact distal pulses. Heart sounds: Normal heart sounds. No murmur heard. No friction rub. No gallop. Pulmonary: Effort: Pulmonary effort is normal. No respiratory distress. Breath sounds: Normal breath sounds. No wheezing or rales. Musculoskeletal: Right lower leg: No edema. Left lower leg: No edema. Neurological: Mental Status: She is alert. No results found for: CHOL, LDLCALC, LDLDIRECT, TRIG, HDL [facility] 09-14-2022 History and physical note INTERVAL HISTORY AND PHYSICAL Patient Name: Sapna Breen Admit Date: [id number] MR #: [id number] : 1950 The H&P has been reviewed and the patient has been examined. I concur with the findings of the H&P. There are no significant changes. It is appropriate to proceed with the planned procedure. The risks and benefits of cardiac catheterization was explained. The risks reviewed includes but not limited to vascular damage, hematoma, infection, tamponade, allergic/anaphylactic reaction, acute renal insufficiency, need for emergency surgery, SC, stroke, or cardiac arrest/. Patient voiced understanding and agreed to proceed. Pollo Angulo MD 09/14/2022 10:09 AM Source Note - Pollo Angulo MD - 08/22/2022 8:14 AM EDT [facility] Consult Heart & Vascular [facility] 08/22/2022 Pollo Angulo MD [address] [place] [id number] Patient: Sapna Breen Date of : 1950 (71 y.o.) Referring Provider: No ref. provider found PCP: Medardo Robles MD Problem List Items Addressed This Visit None Visit Diagnoses Atrial fibrillation, unspecified type (HCC) - Primary Relevant Medications aspirin 81 MG EC tablet Other Relevant Orders ECG 12 lead (Completed) Essential hypertension #1 paroxysmal atrial fibrillation Patient has had paroxysmal atrial fibrillation for several years now. Her heart rate is well controlled on beta-brice. Her [id number] score is 3 giving an annual stroke risk around 4.5% without any anticoagulation. Her HAS-BLED score is also 3 giving an annual risk of bleeding on any anticoagulant about 6%. Moreover she has been off anticoagulation because of previous history of bleeding. She would be therefore someone who needs to be on either oral anticoagulation or an alternate therapy. Given high HAS-BLED score and prior history of hematuria. She would be an ideal candidate to consider for left atrial appendage closure with either amulet or watchman device. Explained to the patient what is the pathophysiology of stroke in people with A. fib and available options. Explained to her the risk and benefits of undergoing left atrial appendage closure. Risk include but not limited to risk of bleeding infection stroke SC or need for emergent open heart surgery. Patient and her family fully understood the procedure and associated risk and agreed to proceed further. In meanwhile have advised patient to continue oral anticoagulation with Xarelto while waiting for procedure she is to continue with Lopressor for rate control Follow-up: No follow-ups on file. Chief Complaint: Follow-up Subjective History of Present Illness: Sapna Breen is a 71 y.o. female with known history of paroxysmal atrial fibrillation for several years, hypertension hyperlipidemia was referred by her primary cardiology structural heart team for consideration of left atrial appendage closure. Patient has been taking Xarelto for many years but of late has noticed that she has been having hematuria every time she takes Xarelto. When this was discontinued her symptoms had resolved. I believe for the evaluation of hematuria has so 5 failed to yield a cause. When she resumed her Xarelto her hematuria came back. Therefore she was referred to structural heart team for further evaluation for appendage closure. She otherwise has no other complaints to me today in the clinic. No other complaints of exertional chest pains or shortness of breath orthopnea or PND intermittent leg swelling yes but no complains of any palpitations presyncope or syncope. No recent fever cough chills nausea vomiting diarrhea headache or any visual disturbances. There is no past medical history of any CAD SC stroke diabetes or known peripheral arterial disease Non-smoker lifelong Family history of CAD in her brother who had SC and mother had some heart disease that she is unsure of Objective Imaging: I independently reviewed the EKG and agree with the interpretation(s) with the following comments. NSR ECG 12 lead Final Result by Arron Vizcarra MA (08/22/2022 0757) Past Medical History: Diagnosis Date A-fib (HCC) Hyperlipidemia Hypertension Kidney stone Past Surgical History: Procedure Laterality Date BREAST SURGERY SECTION History reviewed. No pertinent family history. Social History Tobacco Use Smoking Status Never Smokeless Tobacco Never Vaping Use Vaping Status Never Used Passive vaping exposure: Yes Allergies: Penicillins and Sulfa (sulfonamide antibiotics) HOME Medications: Current Outpatient Medications on File Prior to Visit Medication Sig alendronate (FOSAMAX) 70 MG tablet Take 1 (one) tablet (70 mg total) by mouth every 7 days (full glass of water on an empty stomach). Remain upright and do not eat for next 30 min . allopurinoL (ZYLOPRIM) 100 MG tablet Take 1 (one) tablet (100 mg total) by mouth daily . aspirin 81 MG EC tablet Take 1 (one) tablet (81 mg total) by mouth daily . cholecalciferol, vitamin D3, 1,000 unit tablet Take 1 (one) tablet (1,000 Units total) by mouth daily . colchicine 0.6 mg tablet Take 1 (one) tablet (0.6 mg total) by mouth daily . diltiazem (CARDIZEM CD) 120 MG 24 hr capsule Take 1 (one) capsule (120 mg total) by mouth daily . hydroCHLOROthiazide (HYDRODIURIL) 25 MG tablet Take 1 (one) tablet (25 mg total) by mouth daily . lisinopriL (PRINIVIL,ZESTRIL) 5 MG tablet Take by mouth daily . metoprolol tartrate (LOPRESSOR) 50 MG tablet Take 1 (one) tablet (50 mg total) by mouth 2 (two) times a day . potassium chloride SA (K-DUR,KLOR-CON) 20 MEQ tablet Take 1 (one) tablet (20 mEq total) by mouth every other day . rivaroxaban (Xarelto) 15 mg Tab Take 1 (one) tablet (15 mg total) by mouth once . No current facility-administered medications on file prior to visit. Vital Signs: BP (!) 147/86 (BP Location: Left arm) Pulse 61 Wt 85 kg (187 lb 6.4 oz) SpO2 95% Physical Exam Constitutional: Appearance: Normal appearance. She is well-developed. She is not diaphoretic. Neck: Thyroid: No thyromegaly. Vascular: No JVD. Trachea: No tracheal deviation. Cardiovascular: Rate and Rhythm: Normal rate and regular rhythm. Pulses: Intact distal pulses. Heart sounds: Normal heart sounds. No murmur heard. No friction rub. No gallop. Pulmonary: Effort: Pulmonary effort is normal. No respiratory distress. Breath sounds: Normal breath sounds. No wheezing or rales. Musculoskeletal: Right lower leg: No edema. Left lower leg: No edema. Neurological: Mental Status: She is alert. No results found for: CHOL, LDLCALC, LDLDIRECT, TRIG, HDL documented in this encounter [facility] 09-14-2022 Hospital Discharge instructions Jack Escobar RN - 09/14/2022 8:52 AM EDT [facility] Hospital Discharge Instructions Your 45 day follow up clinic appointment with cardiology nurse practitioner Jeny Archuleta is scheduled for 11/06/22 at 1030am at the [facility], [address] [place] [address] Heart and Vascular Clinic. Please arrive 15 minutes prior to your appointment time. Your 6 month post procedure office visit with cardiology nurse practitioner Jeny Archuleta has been scheduled for 03/20/23 at 930am at the [facility], [address] [place] [address] Heart and Vascular Clinic. Please arrive 15 minutes prior to your appointment time. Your [address] scan has been scheduled for 03/15/23. Please arrive at the [facility] at 845am. Post LAAO CT Instructions: Your physician requires blood work prior to your scan, we will place an order for the blood work that may be performed at the [facility] lab of your choice within 1-2 weeks prior to the scan. Procedure Descriptions: You must be able to lie flat on your back for the duration of the exam. A non-ionic contrast material will be injected through and IC into the arm or hand. This contrast will enable the blood vessels to be visualized as well as measure the size of your left atrial appendage. Patient Preparation: 1. If you have had previous reaction to iodinated contrast (IV Dye), contact us immediately. If you have an IV dye/contrast allergy, please take prescribed prednisone (50 mg) @ 13 hours prior , again at 7 hours prior, and again @ 1 hour prior to your scan. You will also need to bring benadryl 50 mg with you the day of your test to take 1 hour prior to the test. 2. Patient must be cooperative and able to follow instructions. 3. Diabetics on oral hypoglycemic such as: Metformin, Glucophage, Kazano, Invokamet, Xigduo XR, Synjardy, Glipizide, Gluocvance, Jentadueto, Actoplus, Prandimet, Avandamet, Janumet must be screened prior to the test with blood work to check kidney function. Please hold this medication the morning of the test, and for two additional days after the test. 4. Remove all jewelry from all parts of the body. 5. Wear comfortable clothing and shoes. 6. You may eat prior to the scan. Medications may be taken. Please drink a few extra glasses that morning and/or prior to your scan to ensure you are properly hydrated. Post Procedure Instructions: Activity: Avoid driving, operating machinery, alcohol consumption, signing legal documents or participating in legal proceedings for 24 hours after receiving sedation. A responsible adult must drive you home from the hospital. You may resume normal activities, including light walking, after 24 hours. Avoid lifting more than 10 pounds, jogging, exercise classes, sports, and vigorous activities for at least 7 days after your procedure. Limit climbing stairs, excessive bending, squatting, or stooping for the first 24-48 hours after your procedure. You may drive in ____5 days. You may remove the bandage after 24 hours. Make sure to look at the site daily to assess for any changes. Change the band-aid daily for 3-4 days. If the bandage becomes soiled or wet, replace it with a fresh one. You may shower 24 hours after the procedure. Avoid sitting more than 1 consecutive hour the first 3 days. If traveling, stop and walk for 5 minutes every hour. Soreness is common for about a week. Bruising can last up to 2 weeks. If you have a small lump (called a hematoma) under the skin, it can last up to 6 weeks. Shower daily, NO tub baths, hot tubs, or swimming pools for 1 week. Cleanse wounds with mild soap and water-do not scrub the site. Keep wound clean and dry, pat the site dry. A small amount of bloody or clear drainage is normal. Do not apply any powders, lotions, or antibiotic creams to the area. Watch for redness, swelling, warmth to touch, foul, and/or colored drainage from the incision site. These are signs of infection and should be reported immediately to your physician. Medications: You will continue to take Plavix 75mg as well as baby aspirin 81mg daily for 6 months after your procedure. At this time you will be seen in the Structural Heart Clinic again for a follow up appointment and potentially an EKG and lab work. Our MD/XIN/RN will discuss your medications again at this appointment. Follow-up Schedule After Your MARION closure Procedure: Around 1 week: Staff from our Structural Heart office will call to see how you are doing after the procedure. If you do not receive a call, please call in for an update. ([phone]) Around 45 days: You will have a follow up clinic appointment and potentially an EKG and lab work. . Around 6 months: You will need to see the Structural Heart Clinic again for a follow up appointment and potentially an EKG and lab work. Our MD/XIN/RN will discuss your medications again at this appointment. You will have a post procedure CT scan about 2 weeks after your office visit. You are required to have follow up visits with an EKG and lab work at one year and two years post-procedure per registry guidelines. You will be contacted to schedule these appointments. Dentist Visits: The 1st 6 months after the MARION closure device, you will need antibiotics before you have any dental work. Please contact the clinic if you need an antibiotic prior to dental work. Potential Problems: Please call us if you develop: A fever of 101 or higher during your first few days at home. Increased swelling of a groin bruise. A groin bruise is to be expected due to the blood thinners used during your procedure. Discoloration will spread as you move about, but the swelling should decrease. Bleeding-If you have bright red, pulsating, bleeding or oozing of blood, apply pressure and lie flat for 20 minutes. If the bleeding stops, apply a new band-aid and continue to monitor the site closely. If the bleeding does not stop, hold firm pressure and call 911. Pain, change in color, numbness, tinging, temperature change, swelling in the lower legs or feet (specifically the same leg as the groin site), or development of new lump at the site. Shortness of breath or difficulty breathing, especially at rest of when lying flat in bed. Waking up breathless at night. A new persistent cough or unexplained shortness of breath, especially when lying down. Decreased urination. Sudden weight gain of 3 pounds in 2 days, or 5 pounds in 1 week. For after office hours or weekends, please call [phone] and ask for the steeler front desk person for assistance. During the week days, you may call CHRISTI Santiago at the office at [phone]. documented in this encounter [facility] 09-08-2022 History of Present illness Narrative Pt called to review procedure with Dr. Adele PATTERSON with watchman device scheduled next week 09/14. All information listed below reviewed. Verbalizes understanding and denies any further questions. Thankful for call. Please complete required pre-procedure blood work on 09/11 or 09/12 at the [facility] building main floor lab. No fasting is required for this blood work. 3-MARION Closure PRE-PROCEDURE INSTRUCTIONS Date: ____09/14 Check-In Time: 9am The check in time is the time that you need to be at the hospital. This time allows adequate preparation time prior to your procedure. It is not the time of the procedure. LOCATION: [facility]. Please park in the garage next to the medical office building. If needed, cell efficiency supervisor parking is available at the front entrance of the hospital. Please report to the first floor visitor information desk inside the main entrance of the hospital to get registered. PLEASE DO NOT EAT OR DRINK ANYTHING AFTER MIDNIGHT THE NIGHT BEFORE YOUR PROCEDURE (this includes NO candy, gum, lozenges, or nicotine products of any kind) . You may have a small sip of water with your morning medications if needed. MEDICATIONS: You may take your scheduled morning medications with a small sip of water with the exception of those listed below. We ask you bring an accurate medication list, or bring your medications in their bottles to the hospital with you. If you are taking Xarelto, Pradaxa, or Eliquis, please do not hold this medication prior to your procedure unless instructed by your nurse. Please begin taking Plavix (clopidigrel) as instructed the evening prior to your procedure. Please start taking a baby Aspirin (81mg) daily STARTING THE MORNING OF YOUR PROCEDURE ONLY if you have not already started and there is no contraindication. Take all other medications as prescribed unless otherwise instructed by your nurse. documented in this encounter [facility] 08-28-2022 History of Present illness Narrative Pt called to review LAAO procedure information listed below. Verbalizes understanding and denies any further questions. 1-Your echocardiogram is scheduled for 09/05 at 2pm at the [facility], 3rd floor heart and vascular clinic. 2-Pre-CT You are scheduled for a pre-CT scan, on 09/05 at [facility]. Please arrive at the Short Term Care Unit at 1245pm ___. If your physician requires blood work prior to your exam, you will be given an order for blood work that may be performed at the facility of your choice within two weeks prior to the scan. Procedure Descriptions: You must be able to lie flat on your back for the duration of the exam. A non-ionic contrast material will be injected through and IC into the arm or hand. This contrast will enable the blood vessels to be visualized as well as measure the size of your left atrial appendage. Patient Preparation: 1. Patient must be cooperative and able to follow instructions. 2. Remove all jewelry from all parts of the body. 3. Wear comfortable clothing and shoes. 4. You may eat prior to the scan. Medications may be taken. Please drink a few extra glasses that morning and/or prior to your scan to ensure you are properly hydrated. Please complete required pre-procedure blood work on 09/05 at the [facility] main floor lab. No fasting is required for this blood work. 3-MARION Closure PRE-PROCEDURE INSTRUCTIONS Date: Check-In Time: 9am The check in time is the time that you need to be at the hospital. This time allows adequate preparation time prior to your procedure. It is not the time of the procedure. LOCATION: [facility]. Please park in the garage next to the medical office building. If needed, cell efficiency supervisor parking is available at the front entrance of the hospital. Please report to the first floor visitor information desk inside the main entrance of the hospital to get registered. PLEASE DO NOT EAT OR DRINK ANYTHING AFTER MIDNIGHT THE NIGHT BEFORE YOUR PROCEDURE (this includes NO candy, gum, lozenges, or nicotine products of any kind) . You may have a small sip of water with your morning medications if needed. MEDICATIONS: You may take your scheduled morning medications with a small sip of water with the exception of those listed below. We ask you bring an accurate medication list, or bring your medications in their bottles to the hospital with you. If you are taking Xarelto, Pradaxa, or Eliquis, please do not hold this medication prior to your procedure unless instructed by your nurse. Please begin taking Plavix (clopidigrel) as instructed the evening prior to your procedure. Please start taking a baby Aspirin (81mg) daily STARTING THE MORNING OF YOUR PROCEDURE ONLY if you have not already started and there is no contraindication. Take all other medications as prescribed unless otherwise instructed by your nurse. Additional Instructions: We plan to send you home the same day, but please come prepared for an overnight stay just in case. Please arrange to have someone drive you home the day you are discharged. If you have an allergy to contrast dye, shellfish, or iodine, please notify your nurse. No smoking or use of products containing nicotine for 24 hours prior to your procedure. This includes no cigarettes, cigars, chewing tobacco, or vaping. Please obtain a pre-surgical skin scrub at your local pharmacy called [facility]-you can get this over the counter, you can ask the pharmacist for direction on where to find this in the store. Please wash with this the night prior to your surgery and the morning of, but avoid your face and genital areas. 5.You must be accompanied by someone who is able to drive you home after the procedure. documented in this encounter [facility] 08-25-2022 History of Present illness Narrative [facility] Note-Pt called into clinic. States her LAAO appt with Dr. Angulo earlier this week on 08/22 she has decided she would like to proceed with LAAO procedure/workup. Discussed potential procedure date of 09/14, pt agreeable to this. Informed I will begin working with scheduling to set up pre procedure testing echo and CT scan the week prior and call her back early next week to go over the details. Verbalizes understanding and thankful for call. documented in this encounter [facility] 08-22-2022 History of Present illness Narrative Structural Heart Disease Clinic Consult Heart & Vascular [facility] 08/22/2022 Pollo Angulo MD [address] [place] [address] Medical Office [facility] [id number] Patient: Sapna Breen Date of : 1950 (71 y.o.) Referring Provider: No ref. provider found PCP: Medardo Robles MD Problem List Items Addressed This Visit None Visit Diagnoses Atrial fibrillation, unspecified type (HCC) - Primary Relevant Medications aspirin 81 MG EC tablet Other Relevant Orders ECG 12 lead (Completed) Essential hypertension #1 paroxysmal atrial fibrillation Patient has had paroxysmal atrial fibrillation for several years now. Her heart rate is well controlled on beta-brice. Her [id number] score is 3 giving an annual stroke risk around 4.5% without any anticoagulation. Her HAS-BLED score is also 3 giving an annual risk of bleeding on any anticoagulant about 6%. Moreover she has been off anticoagulation because of previous history of bleeding. She would be therefore someone who needs to be on either oral anticoagulation or an alternate therapy. Given high HAS-BLED score and prior history of hematuria. She would be an ideal candidate to consider for left atrial appendage closure with either amulet or watchman device. Explained to the patient what is the pathophysiology of stroke in people with A. fib and available options. Explained to her the risk and benefits of undergoing left atrial appendage closure. Risk include but not limited to risk of bleeding infection stroke SC or need for emergent open heart surgery. Patient and her family fully understood the procedure and associated risk and agreed to proceed further. In meanwhile have advised patient to continue oral anticoagulation with Xarelto while waiting for procedure she is to continue with Lopressor for rate control Follow-up: No follow-ups on file. Chief Complaint: Follow-up Subjective History of Present Illness: Sapna Breen is a 71 y.o. female with known history of paroxysmal atrial fibrillation for several years, hypertension hyperlipidemia was referred by her primary cardiology structural heart team for consideration of left atrial appendage closure. Patient has been taking Xarelto for many years but of late has noticed that she has been having hematuria every time she takes Xarelto. When this was discontinued her symptoms had resolved. I believe for the evaluation of hematuria has so 5 failed to yield a cause. When she resumed her Xarelto her hematuria came back. Therefore she was referred to structural heart team for further evaluation for appendage closure. She otherwise has no other complaints to me today in the clinic. No other complaints of exertional chest pains or shortness of breath orthopnea or PND intermittent leg swelling yes but no complains of any palpitations presyncope or syncope. No recent fever cough chills nausea vomiting diarrhea headache or any visual disturbances. There is no past medical history of any CAD SC stroke diabetes or known peripheral arterial disease Non-smoker lifelong Family history of CAD in her brother who had SC and mother had some heart disease that she is unsure of Objective Imaging: I independently reviewed the EKG and agree with the interpretation(s) with the following comments. NSR ECG 12 lead Final Result by Arron Vizcarra MA (08/22/2022 0757) Past Medical History: Diagnosis Date A-fib (HCC) Hyperlipidemia Hypertension Kidney stone Past Surgical History: Procedure Laterality Date BREAST SURGERY SECTION History reviewed. No pertinent family history. Social History Tobacco Use Smoking Status Never Smokeless Tobacco Never Vaping Use Vaping Status Never Used Passive vaping exposure: Yes Allergies: Penicillins and Sulfa (sulfonamide antibiotics) HOME Medications: Current Outpatient Medications on File Prior to Visit Medication Sig alendronate (FOSAMAX) 70 MG tablet Take 1 (one) tablet (70 mg total) by mouth every 7 days (full glass of water on an empty stomach). Remain upright and do not eat for next 30 min . allopurinoL (ZYLOPRIM) 100 MG tablet Take 1 (one) tablet (100 mg total) by mouth daily . aspirin 81 MG EC tablet Take 1 (one) tablet (81 mg total) by mouth daily . cholecalciferol, vitamin D3, 1,000 unit tablet Take 1 (one) tablet (1,000 Units total) by mouth daily . colchicine 0.6 mg tablet Take 1 (one) tablet (0.6 mg total) by mouth daily . diltiazem (CARDIZEM CD) 120 MG 24 hr capsule Take 1 (one) capsule (120 mg total) by mouth daily . hydroCHLOROthiazide (HYDRODIURIL) 25 MG tablet Take 1 (one) tablet (25 mg total) by mouth daily . lisinopriL (PRINIVIL,ZESTRIL) 5 MG tablet Take by mouth daily . metoprolol tartrate (LOPRESSOR) 50 MG tablet Take 1 (one) tablet (50 mg total) by mouth 2 (two) times a day . potassium chloride SA (K-DUR,KLOR-CON) 20 MEQ tablet Take 1 (one) tablet (20 mEq total) by mouth every other day . rivaroxaban (Xarelto) 15 mg Tab Take 1 (one) tablet (15 mg total) by mouth once . No current facility-administered medications on file prior to visit. Vital Signs: BP (!) 147/86 (BP Location: Left arm) Pulse 61 Wt 85 kg (187 lb 6.4 oz) SpO2 95% Physical Exam Constitutional: Appearance: Normal appearance. She is well-developed. She is not diaphoretic. Neck: Thyroid: No thyromegaly. Vascular: No JVD. Trachea: No tracheal deviation. Cardiovascular: Rate and Rhythm: Normal rate and regular rhythm. Pulses: Intact distal pulses. Heart sounds: Normal heart sounds. No murmur heard. No friction rub. No gallop. Pulmonary: Effort: Pulmonary effort is normal. No respiratory distress. Breath sounds: Normal breath sounds. No wheezing or rales. Musculoskeletal: Right lower leg: No edema. Left lower leg: No edema. Neurological: Mental Status: She is alert. No results found for: CHOL, LDLCALC, LDLDIRECT, TRIG, HDL documented in this encounter [facility] 08-18-2022 Instructions Jack Escobar RN - 08/18/2022 9:07 AM EDT Please complete required pre-procedure blood work on at the [facility] main floor lab. No fasting is required for this blood work. 1-Your echocardiogram is scheduled for at the [facility], 3rd floor heart and vascular clinic. 2-Pre-CT You are scheduled for a pre-CT scan, on at [facility]. Please arrive at the Short Term Care Unit at . If your physician requires blood work prior to your exam, you will be given an order for blood work that may be performed at the facility of your choice within two weeks prior to the scan. Procedure Descriptions: You must be able to lie flat on your back for the duration of the exam. A non-ionic contrast material will be injected through and IC into the arm or hand. This contrast will enable the blood vessels to be visualized as well as measure the size of your left atrial appendage. Patient Preparation: 1. Patient must be cooperative and able to follow instructions. 2. Remove all jewelry from all parts of the body. 3. Wear comfortable clothing and shoes. 4. You may eat prior to the scan. Medications may be taken. Please drink a few extra glasses that morning and/or prior to your scan to ensure you are properly hydrated. 3-MARION Closure PRE-PROCEDURE INSTRUCTIONS Date: Check-In Time: The check in time is the time that you need to be at the hospital. This time allows adequate preparation time prior to your procedure. It is not the time of the procedure. LOCATION: [facility]. Please park in the garage next to the medical office building. If needed, cell efficiency supervisor parking is available at the front entrance of the hospital. Please report to the first floor visitor information desk inside the main entrance of the hospital to get registered. PLEASE DO NOT EAT OR DRINK ANYTHING AFTER MIDNIGHT THE NIGHT BEFORE YOUR PROCEDURE (this includes NO candy, gum, lozenges, or nicotine products of any kind) . You may have a small sip of water with your morning medications if needed. MEDICATIONS: You may take your scheduled morning medications with a small sip of water with the exception of those listed below. We ask you bring an accurate medication list, or bring your medications in their bottles to the hospital with you. If you are taking Xarelto, Pradaxa, or Eliquis, please hold this medication x2 days prior. Please begin takingPlavix (clopidigrel) starting the evening prior to your procedure as instructed. Please start taking a baby Aspirin (81mg) daily STARTING THE MORNING OF YOUR PROCEDURE if you do not already take one and there is no contraindication. Take all other medications as prescribed unless otherwise instructed by your nurse. Additional Instructions: We plan to send you home the same day, but please come prepared for an overnight stay just in case. Please arrange to have someone drive you home the day you are discharged. If you have an allergy to contrast dye, shellfish, or iodine, please notify your nurse. No smoking or use of products containing nicotine for 24 hours prior to your procedure. This includes no cigarettes, cigars, chewing tobacco, or vaping. Please obtain a pre-surgical skin scrub at your local pharmacy called [facility]-you can get this over the counter, you can ask the pharmacist for direction on where to find this in the store. Please wash with this the night prior to your surgery and the morning of, but avoid your face and genital areas. 5.You must be accompanied by someone who is able to drive you home after the procedure. ~PLEASE NOTE: THIS PROCEDURE IS BILLED AN INPATIENT PROCEDURE. TYPICAL RECOVERY ALLOWS FOR SAME DAY DISCHARGE, SO THIS INPATIENT VS OUTPATIENT STATUS IS SUBJECT TO CHANGE. You may reach our nurse line at [phone] for any questions or concerns. Please leave a message and we will return your call within 24 hours, Sunday-Sunday. For billing questions, please contact your insurance and/or our central billing office at [phone]. Thank you for choosing [facility], we look forward to caring for you. documented in this encounter [facility] 08-16-2022 History of Present illness Narrative [facility] referral received from Dr. Yi for LEONARDO morelos. Pt scheduled [place] 08/22 w/ Dr. Angulo Records requested from pt PCP and [facility] (last echo 2015), Urology notes requested and labs. documented in this encounter [facility] Evaluation + Plan note Future Appointments Appointment Date:11/16/2023 09:45:00 AM Scheduled Provider:Rachel FLORES MD Location:[facility] Appointment Type:URO Office Visit Diagnostic Tests PendingElectrolyte Panel 11/17/22 [facility] Evaluation note Diagnosis Dysuria documented in this encounter [employer] Phone: evaluation note* Diagnosis Visit for screening mammogram Other screening mammogram documented in this encounter [employer] Phone: evaluation note* Diagnosis Pain and swelling of toe of left foot documented in this encounter [employer] Phone: evaluation note* Diagnosis Dysuria Acute cystitis with hematuria Acute cystitis documented in this encounter [employer] Phone: evaluation note* Diagnosis Visit for screening mammogram Other screening mammogram documented in this encounter [facility] [employer] Phone: evaljindjd note* Diagnosis Atrial fibrillation, unspecified type (HCC)- Primary Essential hypertension Unspecified essential hypertension [facility] Diagnosis Atrial fibrillation, unspecified type (HCC)- Primary Atrial fibrillation, chronic (HCC) [facility] Diagnosis Atrial fibrillation, unspecified type (HCC)- Primary [facility] Diagnosis Pre-op testing- Primary Unspecified pre-operative examination Atrial fibrillation, chronic (HCC) [facility] Diagnosis Atrial fibrillation, chronic (HCC)- Primary [facility] Diagnosis Presence of Watchman left atrial appendage closure device- Primary PAF (paroxysmal atrial fibrillation) (HCC) Atrial fibrillation documented in this encounter [facility] note* Diagnosis Dysuria documented in this encounter [facility] note* Diagnosis Atrial fibrillation, chronic (HCC)- Primary Presence of Watchman left atrial appendage closure device documented in this encounter [facility] note* Diagnosis Atrial fibrillation, chronic (HCC)- Primary documented in this encounter [facility] note* Diagnosis Atrial fibrillation, unspecified type (HCC)- Primary Presence of Watchman left atrial appendage closure device documented in this encounter [facility] note* Diagnosis Atrial fibrillation, unspecified type (HCC)- Primary documented in this encounter [facility] Narrative No data available for this section [facility] progress note No data available for this section [facility] reason for visit Narrative* Auth/Cert Specialty Diagnoses / Procedures Referred By Sea palm Referred To Contact Diagnoses atrial fibrillation Procedures Left Atrial Appendage Closure Referral ID Status Reason Start Date Expiration Date Visits Re quested Visits Authorized [id number] 1 1 [facility] Summary Purpose Family History No Family History Records FoundNo Family History Records FoundNo Family History Records FoundNo Family History Records FoundNo Family History Records FoundNo Family History Records Found No data available for this section No Family History Records Found Advance Directives No Advanced Directives Records FoundDocuments on File Type Date Recorded 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 Advance Directives and Living Will Power of Licensed Aircraft Maintenance Engineer Latest Code Status on File Code Status Date Activated Date Inactivated Comments Full Code 06/14/2015 10:10 AM 06/14/2015 1:00 PM Full Code 06/14/2015 8:09 AM 06/14/2015 10:10 AM Full Code 12/10/2012 7:01 AM 12/10/2012 5:08 PM Documents on File Type Date Recorded 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 Advance Directives and Living Will Power of Licensed Aircraft Maintenance Engineer Latest Code Status on File Code Status Date Activated Date Inactivated Comments Full Code 06/14/2015 10:10 AM 06/14/2015 1:00 PM Full Code 06/14/2015 8:09 AM 06/14/2015 10:10 AM Full Code 12/10/2012 7:01 AM 12/10/2012 5:08 PM Documents on File Type Date Recorded 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 ACP-Advance Directive ACP-Power of Licensed Aircraft Maintenance Engineer Documents on File Type Date Recorded 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 ACP-Advance Directive ACP-Power of Licensed Aircraft Maintenance Engineer Healthcare Agents on File Name Relationship Healthcare Agent Relationship Communication Cledith Amburgey Spouse Primary Decision Maker Healthcare Agents on File Name Relationship Healthcare Agent Relationship Communication Cledith Amburgey Spouse Primary Decision Maker Healthcare Agents on File Name Relationship Healthcare Agent Relationship Communication Cledith Amburgey Spouse Primary Decision Maker Healthcare Agents on File Name Relationship Healthcare Agent Relationship Communication Cledith Amburgey Spouse Primary Decision Maker Latest Code Status on File Code Status Date Activated Date Inactivated Comments Full Code 09/14/2022 2:05 PM Code Status History Code Status Date Activated Date Inactivated Comments Full Code 09/14/2022 8:47 AM 09/14/2022 2:05 PM Latest Code Status on File Code Status Date Activated Date Inactivated Comments Full Code 09/14/2022 2:05 PM Code Status History Code Status Date Activated Date Inactivated Comments Full Code 09/14/2022 8:47 AM 09/14/2022 2:05 PM Latest Code Status on File Code Status Date Activated Date Inactivated Comments Full Code 09/14/2022 2:05 PM 09/15/2022 1:05 PM Latest Code Status on File Code Status Date Activated Date Inactivated Comments Full Code 06/14/2015 10:10 AM 06/14/2015 1:00 PM Code Status History Code Status Date Activated Date Inactivated Comments Full Code 06/14/2015 8:09 AM 06/14/2015 10:10 AM Full Code 12/10/2012 7:01 AM 12/10/2012 5:08 PM Healthcare Agents on File Name Relationship Healthcare Agent Relationship Communication Cledith Amburgey Spouse Primary Decision Maker Latest Code Status on File Code Status Date Activated Date Inactivated Comments Full Code 09/14/2022 2:05 PM 09/15/2022 1:05 PM Date Activated Date Inactivated Comments 09/14/2022 2:05 PM 09/15/2022 1:05 PM Date Activated Date Inactivated Comments 09/14/2022 8:47 AM 09/14/2022 2:05 PM Reason for Referral Status Reason Specialty Diagnoses / Procedures Referre d By Contact Referred To Contact [facility] Cardiology Diagnoses Essential hypertension Mitral valve insufficiency, unspecified etiology Atrial fibrillation, unspecified type (HCC) Procedures EKG 12 Lead Kyle Austin MD [address] [place] [id number] Status Reason Specialty Diagnoses / Procedures Re ferred By Contact Referred To Contact Open Cardiology Diagnoses Elevated glucose Essential hypertension Hyperlipidemia, unspecified hyperlipidemia type Vitamin D deficiency disease Atrial fibrillation, unspecified type (HCC) Procedures EKG 12 Lead Kyle Austin MD [address] [place] [address] Status Reason Specialty Diagnoses / Procedures Referre d By Contact Referred To Contact Closed Radiology Diagnoses Visit for screening mammogram Procedures JAMES KRISSY DIGITAL SCREEN BILATERAL Medardo Robles MD [address] [place] [address] Specialty Diagnoses / Procedures Referred By Contac t Referred To Contact Radiology Diagnoses Visit for screening mammogram Procedures JAMES KRISSY DIGITAL SCREEN BILATERAL Medardo Robles MD [address] [place] [address] Referral ID Status Reason Start Date Expiration Date Visits Re quested Visits Authorized [id number] Closed 01/24/2022 01/24/2023 1 1 Specialty Diagnoses / Procedures Referred By Contac t Referred To Contact Cardiology Diagnoses Atrial fibrillation, unspecified type (HCC) Procedures ECG 12 lead Pollo Angulo MD [address] [place] [address] Referral ID Status Reason Start Date Expiration Date V isits Requested Visits Authorized [id number] Authorized 08/22/2022 08/22/2023 1 1 Specialty Diagnoses / Procedures Referred By Contac t Referred To Contact Radiology Diagnoses Atrial fibrillation, unspecified type (HCC) Procedures CT Pulmonary Vein With Reconstructions 3D Pollo Angulo MD [address] [place] [address] Referral ID Status Reason Start Date Expiration Date V isits Requested Visits Authorized [id number] Authorized 08/28/2022 08/28/2023 1 1 Specialty Diagnoses / Procedures Referred By Contac t Referred To Contact Cardiology Diagnoses Atrial fibrillation, unspecified type (HCC) Atrial fibrillation, chronic (HCC) Procedures Echocardiogram complete Pollo Angulo MD [address] [place] [address] Referral ID Status Reason Start Date Expiration Date V isits Requested Visits Authorized [id number] Authorized 08/28/2022 08/28/2023 1 1 Specialty Diagnoses / Procedures Referred By Contac t Referred To Contact Radiology Diagnoses Atrial fibrillation, chronic (HCC) Procedures CT Pulmonary Vein With Reconstructions 3D Pollo Angulo MD [address] [place] [address] Referral ID Status Reason Start Date Expiration Date V isits Requested Visits Authorized [id number] Pending Review 03/16/2023 03/15/2024 1 1 Specialty Diagnoses / Procedures Referred By Contac t Referred To Contact Cardiology Diagnoses Atrial fibrillation, chronic (HCC) Procedures ECG 12 lead Ximena Archuleta CNP [address] [place] [address] Referral ID Status Reason Start Date Expiration Date V isits Requested Visits Authorized [id number] Authorized 11/06/2022 11/06/2023 1 1 Specialty Diagnoses / Procedures Referred By Contac t Referred To Contact Cardiology Diagnoses Atrial fibrillation, unspecified type (HCC) Procedures ECG 12 lead Ximena Archuleta CNP [address] [place] [address] Referral ID Status Reason Start Date Expiration Date V isits Requested Visits Authorized [id number] Authorized 03/20/2023 03/19/2024 1 1 Assessments Diagnosis Essential hypertension Unspecified essential hypertension Mitral valve insufficiency, unspecified etiology Atrial fibrillation, unspecified type (HCC) Diagnosis Essential hypertension Unspecified essential hypertension Mitral valve insufficiency, unspecified etiology Atrial fibrillation, unspecified type (HCC) Hyperlipidemia, unspecified hyperlipidemia type Vitamin D deficiency disease Unspecified vitamin D deficiency Diagnosis Essential hypertension Unspecified essential hypertension Mitral valve insufficiency, unspecified etiology Atrial fibrillation, unspecified type (HCC) Diagnosis Complicated UTI (urinary tract infection) Urinary tract infection, site not specified Diagnosis Elevated glucose Other abnormal glucose Essential hypertension Unspecified essential hypertension Hyperlipidemia, unspecified hyperlipidemia type Vitamin D deficiency disease Unspecified vitamin D deficiency Atrial fibrillation, unspecified type (HCC) Diagnosis Elevated glucose Other abnormal glucose Essential hypertension Unspecified essential hypertension Hyperlipidemia, unspecified hyperlipidemia type Vitamin D deficiency disease Unspecified vitamin D deficiency Atrial fibrillation, unspecified type (HCC) Additional Source Comments INFORMATION SOURCE (unrecogn ized section and content) DATE CREATED AUTHOR 04/23/2018 [facility] DATE CREATED AUTHOR AUTHOR'S ORGANIZ ATION 07/21/2021 [facility] DATE CREATED AUTHOR AUTHOR'S ORGANIZ ATION 09/03/2022 [facility] DATE CREATED AUTHOR AUTHOR'S ORGANIZ ATION 09/08/2023 [facility] DATE CREATED AUTHOR AUTHOR'S ORGANIZ ATION 09/11/2023 [facility] DATE CREATED AUTHOR AUTHOR'S ORGANIZ ATION 11/10/2023 [place] DATE CREATED AUTHOR AUTHOR'S ORGANIZ ATION 11/17/2023 [facility] Reason for Visit (unrecogniz ed section and content) Status Reason Specialty Diagnoses / Procedures Referre d By Contact Referred To Contact Closed Radiology Diagnoses Visit for screening mammogram Procedures JAMES KRISSY DIGITAL SCREEN BILATERAL Medardo Robles MD [address] [place] [address] Specialty Diagnoses / Procedures Referred By Sea palm Referred To Contact Radiology Diagnoses Visit for screening mammogram Procedures JAMES KRISSY DIGITAL SCREEN BILATERAL Medardo Robles MD [address] [place] [address] Referral ID Status Reason Start Date Expiration Date Visits Re quested Visits Authorized [id number] Closed 01/24/2022 01/24/2023 1 1 Reason Comments Follow-up Reason Onset Date Comments Medication Refill 08/28/2022 Reason Comments Follow-up Patient has no new c ardiac concerns today Reason Onset Date Comments Medication Refill 11/13/2022 Reason Comments Follow-up 6 mo LAAO f/u pt has no complaints today Reason Comments Follow-up 1 year LAAO -no comp laints Care Teams (unrecognized sec tion and content) Manager Insurance Relationship Specialty Start Date End Date Medardo Robles MD [address] [place] [address] PCP - General Family Medicine 06/10/13 Manager Insurance Relationship Specialty Start Date End Date Medardo Robles MD [address] [place], [place] [id number] PCP - General Family Medicine 06/10/13 Manager Insurance Relationship Specialty Start Date End Date Medardo Robles MD [address] [place] [address] PCP - General Family Medicine 06/10/13 Manager Insurance Relationship Specialty Start Date End Date Medardo Robles MD [address] [place] [address] PCP - General Family Medicine 06/10/13 Manager Insurance Relationship Specialty Start Date End Date Medardo Robles MD [address] [place] [address] PCP - General Family Medicine 08/15/22 Manager Insurance Relationship Specialty Start Date End Date Medardo Robles MD [address] [place] [address] PCP - General Family Medicine 08/15/22 Manager Insurance Relationship Specialty Start Date End Date Medardo Robles MD [address] [place] [address] PCP - General Family Medicine 08/15/22 Manager Insurance Relationship Specialty Start Date End Date Medardo Robles MD [address] [place] [address] PCP - General Family Medicine 08/15/22 Manager Insurance Relationship Specialty Start Date End Date Medardo Robles MD [address] [place] [address] PCP - General Family Medicine 08/15/22 Manager Insurance Relationship Specialty Start Date End Date Medardo Robles MD [address] [place] [id number] PCP - General Family Medicine 08/15/22 Manager Insurance Relationship Specialty Start Date End Date Medardo Robles MD [address] [place] [id number] PCP - General Family Medicine 08/15/22 Manager Insurance Relationship Specialty Start Date End Date Medardo Robles MD [address] [place] [address] PCP - General Family Medicine 08/15/22 Manager Insurance Relationship Specialty Start Date End Date Medardo Robles MD [address] [place] [address] PCP - General Family Medicine 08/15/22 Manager Insurance Relationship Specialty Start Date End Date Medardo Robles MD [address] [place] [address] PCP - General Family Medicine 08/15/22 Manager Insurance Relationship Specialty Start Date End Date Medardo Robles MD [address] [place] [address] PCP - General Family Medicine 08/15/22 Manager Insurance Relationship Specialty Start Date End Date Medardo Robles MD [address] [place] [address] PCP - General Family Medicine 06/10/13 Manager Insurance Relationship Specialty Start Date End Date Medardo Robles MD [address] [facility] [place] [address] PCP - General Family Medicine 08/15/22 Manager Insurance Relationship Specialty Start Date End Date Medardo Robles MD [address] [facility] [place] [address] PCP - General Family Medicine 08/15/22 Manager Insurance Relationship Specialty Start Date End Date Medardo Robles MD [address] [facility] [place] [address] PCP - General Family Medicine 08/15/22 Manager Insurance Relationship Specialty Start Date End Date Medardo Robles MD [address] [facility] [place] [address] PCP - General Family Medicine 08/15/22 Scheduled Active and Recently Administ ered Medications (unrecognized section and content) Medication Order 09/13/2022 09/14/2022 09/15/2022 allopurinoL (ZYLOPRIM) tablet 100 mg 100 mg, Oral, Daily, First dose on Emily 09/14/22 at 1700 1621 (Given - Provider: Maty Damian RN) 0829 (Given - Provider: Maty Damian RN) aspirin EC tablet 81 mg 81 mg, Oral, Daily, First dose on Sun09/15/22 at 0900, DO NOT CRUSH OR CHEW. 0829 (Given - Provid er: Maty Damian RN) cholecalciferol (vitamin D3) tablet 1,000 Units 1,000 Units, Oral, Daily, First dose on Sun09/14/22 at 1700 1621 (Given - Provider: Maty Damian RN) 0829 (Given - Provider: Maty Damian RN) clindamycin (CLEOCIN) IVPB 900 mg (premix) 900 mg, Intravenous, at 100 mL/hr, 30 min pre-procedure, Starting on Emily 09/14/22 at 0847, To be given in the procedure area., Indication: Other: (specify), Indication: Pre procedure left atrial appendage closure 0924 (New Bag - Provider: Callie Bermeo RN)0954 (Stopped - Provider: Maty aDmian RN)1418 (JUL Hold - Provider: Transfer Provider, Automatic - Reason: Patient not available)1500 (Stopped - Provider: Maty Damian RN - Comment: not running on admit to inpatient floor)1517 (JUL Unhold - Provider: Transfer Provider, Automatic) clindamycin (CLEOCIN) IVPB 900 mg (premix) (COMPLETED) 900 mg, Intravenous, at 100 mL/hr, Once, On Emily 09/14/22 at 1700, For 1 dose, Initiate 6 hours after start of pre-procedure dose., Indication (POST PROCEDURE): Cardiothoracic 1743 (New Bag - Provider: Maty Damian RN) clopidogreL (PLAVIX) tablet 75 mg 75 mg, Oral, Daily, First dose on Sun09/15/22 at 0900 0829 (Given - Provid er: Maty Damian RN) diltiazem (CARDIZEM CD) 24 hr capsule 120 mg 120 mg, Oral, Daily, First dose on Sun09/15/22 at 0900, DO NOT CRUSH OR CHEW. 0829 (Given - Provid er: Maty Damian RN) hydroCHLOROthiazide (HYDRODIURIL) tablet 25 mg 25 mg, Oral, Daily, First dose on Sun09/14/22 at 1700 1621 (Given - Provider: Maty Damian RN) 0829 (Given - Provider: Maty Damian RN) lisinopriL (PRINIVIL,ZESTRIL) tablet 5 mg 5 mg, Oral, Daily, First dose on Sun09/15/22 at 0900 0829 (Given - Provid er: Maty Damian RN) metoprolol tartrate (LOPRESSOR) tablet 50 mg 50 mg, Oral, 2 times daily, First dose on Sun09/14/22 at 2100 2020 (Given - Provider: Kristin Nguyen RN) 0829 (Given - Provider: Maty Damian RN) potassium chloride SA (K-DUR,KLOR-CON) CR tablet 20 mEq 20 mEq, Oral, Daily, First dose on Sun09/14/22 at 1700, DO NOT CRUSH OR CHEW (if instructed may dissolve tablet(s) in liquid) DO NOT ADMINISTER DISSOLVED TABLET VIA SURGICALLY PLACED TUBE OR TUBE less than 14 [place]i. To administer dissolved tablet(s) mix with 4 ounces of water over 2-3 minutes, stir for 30 seconds prior to administration; rinse dosing cup and administer residual medication to ensure full dose given 162 (Given - Provider: Maty Damian RN) 08 (Given - Provider: Maty Damian RN) Continuous Medication Order 09/13/2022 09/14/2022 09/15/2022 lactated Ringers infusion 50 mL/hr, Intravenous, Continuous, Starting on Sun09/14/22 at 1515, PACU (only) 1515 (Canceled Entry - Provider: Maty Damian RN) sodium chloride 0.9% (NS) 20 mL/hr, Intravenous, Continuous, Starting on Sun09/14/22 at 0945 0924 (New Bag - Provider: Callie Bermeo RN)1310 (Paused - Provider: Tiff Caro CRNA - Comment: Switch to gravity)1311 (Restarted - Provider: Tiff Caro CRNA)1401 (Anesthesia Volume Adjustment - Provider: Sonja Villagomez CRNA)1418 (JUL Hold - Provider: Transfer Provider, Automatic - Reason: Patient not available)1517 (JUL Unhold - Provider: Transfer Provider, Automatic) 0833 (New Bag - Provider: Maty Damian, CHRISTI)0835 (Paused - Provider: Maty Damian, CHRISTI)0836 (Restarted - Provider: Maty Damian, CHRISTI)1009 (Stopped - Provider: Maty Damian RN) sodium chloride 0.9% (NS) () 75 mL/hr, Intravenous, Continuous, Starting on Emily 09/14/22 at 1615, For 4 hours 1537 (New Bag - Provider: Maty Damian, CHRISTI) PRN Medication Order 09/13/2022 09/14/2022 09/15/2022 acetaminophen (TYLENOL) tablet 650 mg 650 mg, Oral, Every 4 hours PRN, mild pain, fever 100.4 F or greater, headaches, Starting on Emily 09/14/22 at 1517 aluminum-magnesium hydroxide-simethicone (MAALOX PLUS) 200-200-20 mg/5 mL suspension 30 mL 30 mL, Oral, Every 4 hours PRN, indigestion, Starting on Emily 09/14/22 at 1517 iopamidoL (ISOVUE-370) 370 mg iodine /mL (76 %) injection (CANCELED) As needed, Starting on Emily 09/14/22 at 1359, Intra-Procedure 1359 (Given - Provider: Alexandru Angulo MD) lidocaine 1% (PF) (XYLOCAINE-MPF) 10 mg/mL (1 %) injection (CANCELED) As needed, Starting on Emily 09/14/22 at 1334, Intra-Procedure 1334 (Given - Provider: Alexandru Angulo MD) sodium chloride 0.9% (NS) bolus 250 mL 250 mL, Intravenous, at 937.5 mL/hr, As needed, IF systolic pressure is less than 70 mmHg, IMMEDIATELY notify physician, place patient in Trendelenberg position, Starting on Emily 09/14/22 at 1517, PACU to Post Procedure FOR RECORDS PERTAINING TO PATIENTS WHO ARE OR HAVE BEEN ENROLLED IN A CHEMICAL DEPENDENCY/SUBSTANCEABUSE PROGRAM, SOME INFORMATION MAY BE OMITTED. This clinical summary was aggregated from multiple sources. Caution should be exercised in using it in the provision of clinical care. This summary normalizes information from multiple sources, and as a consequence, information in this document may materially change the coding, format and clinical context of patient data. In addition, data may be omitted in some cases. CLINICAL DECISIONS SHOULD BE BASED ON THE PRIMARY CLINICAL RECORDS. [facility] provides no warranty or guarantee of the accuracy or completeness of information in this document.
--- NOTE | 2023-12-18 10:32 | P.GSHP_ITS ---
History of Present Illness History of Present Illness Chief complaint: right kidney stone Narrative: Patient presents for preadmission testing. The patient states she has a history of kidney stones with urosepsis in 2010. Patient had her yearly visit with urology and it was determined that she has a kidney stone on the right. She denies any symptoms at this time and does not have flank pain, dysuria, hematuria, abdominal pain, nausea, vomiting, or any other complaints. Review of Systems ROS Narrative REVIEW OF SYSTEMS: Negative except as stated in HPI, ten or more systems reviewed. Constitutional: No fever, chills, weakness ENT: No sore throat or epistaxis Cardiovascular: No edema, chest pain, palpitations, or activity intolerance Respiratory: No shortness of breath, cough, or wheezing Musculoskeletal: No joint pain or swelling Gastrointestinal: No abdominal pain, constipation, diarrhea, or vomiting Genitourinary: No dysuria or hematuria Neurological: No numbness, tingling, weakness, or headache Psychiatric: No mood changes [facility]SH [facility] Medical History (Updated 12/18/23 @ 10:15 by Maribell Sesay NP) Osteoporosis ?M81.0 - Age-related osteoporosis without current pathological fracture (ICD- 10) History of blood transfusion (1998) ?Z92.89 - Personal history of other medical treatment (ICD-10) COVID-19 ?U07.1 - COVID-19 (ICD-10) Extremity edema ?R60.0 - Localized edema (ICD-10) Postoperative nausea and vomiting ?R11.2 - Nausea with vomiting, unspecified (ICD-10) ?Z98.890 - Other specified postprocedural states (ICD-10) S/P extracorporeal shock wave therapy ?Z98.890 - Other specified postprocedural states (ICD-10) UTI (urinary tract infection) ?N39.0 - Urinary tract infection, site not specified (ICD-10) Renal cyst ?N28.1 - Cyst of kidney, acquired (ICD-10) Cardiomyopathy ?I42.9 - Cardiomyopathy, unspecified (ICD-10) Palpitations ?R00.2 - Palpitations (ICD-10) Hypertension ?I10 - Essential (primary) hypertension (ICD-10) Sepsis (07/12/10) ?A41.9 - Sepsis, unspecified organism (ICD-10) Presence of Watchman left atrial appendage closure device ?Z95.818 - Presence of other cardiac implants and grafts (ICD-10) Paroxysmal atrial fibrillation ?I48.0 - Paroxysmal atrial fibrillation (ICD-10) Hematuria ?R31.9 - Hematuria, unspecified (ICD-10) Kidney stones ?N20.0 - Calculus of kidney (ICD-10) Surgical History (Updated 12/18/23 @ 10:15 by Maribell Sesay NP) History of dilation and curettage ?Z98.890 - Other specified postprocedural states (ICD-10) S/P ureteral stent placement ?Z96.0 - Presence of urogenital implants (ICD-10) S/P cystoscopy ?Z98.890 - Other specified postprocedural states (ICD-10) H/O ureteroscopy ?Z98.890 - Other specified postprocedural states (ICD-10) S/P breast lumpectomy ?Z98.890 - Other specified postprocedural states (ICD-10) H/O section ?Z98.891 - History of uterine scar from previous surgery (ICD-10) Family History (Updated 12/18/23 @ 10:15 by Maribell Sesay NP) Other Family history of breast cancer Family history of diabetes mellitus Family history of leukemia Family history of stroke Social History (Updated 12/18/23 @ 10:07 by Maribell Sesay NP) Within the past year, how often did you have a drink containing alcohol: never Score interpretation: A score less than 3 is consistent with normal alcohol consumption. Smoking status: Never smoker Non-prescribed substance use: denies use Highest level of school completed/degree received: high school graduate Meds Home Medications and Allergies Home Medications ?Medication ?Instructions ?Recorded ?Confirmed ?Type alendronate 70 mg tablet 70 mg PO QWEEK 12/18/23 12/18/23 History allopurinol 100 mg tablet 100 mg PO DAILY 12/18/23 12/18/23 History aspirin 81 mg tablet,delayed 81 mg PO DAILY 12/18/23 12/18/23 History release (Adult Aspirin Regimen) cholecalciferol (vitamin D3) 25 1,000 unit PO DAILY 12/18/23 12/18/23 History mcg (1,000 unit) capsule diltiazem HCl 120 mg 120 mg PO Q24H 12/18/23 12/18/23 History capsule,extended release 24 hr hydrochlorothiazide 50 mg tablet 50 mg PO DAILY 12/18/23 12/18/23 History lisinopril 5 mg tablet 5 mg PO QPM 12/18/23 12/18/23 History metoprolol tartrate 50 mg tablet 50 mg PO Q12H 12/18/23 12/18/23 History potassium bicarbonate-citric acid 25 meq PO BID 12/18/23 12/18/23 History 25 mEq effervescent tablet (Klor-Con/EF) potassium chloride 20 mEq 20 meq PO BID 12/18/23 12/18/23 History tablet,extended release(part/cryst) Allergies Allergy/AdvReac Type Severity Reaction Status Date / Time Penicillins Allergy Unknown Verified 12/18/23 10:00 Sulfa (Sulfonamide Allergy Nausea Verified 12/18/23 10:00 Antibiotics) Exam Narrative Exam Narrative: Constitutional: Awake, alert, comfortable, well-appearing, nontoxic, interactive, vital signs as charted Head: Normocephalic, atraumatic Neck: Supple, normal appearance, normal range of motion, no meningeal signs, no lymphadenopathy Respiratory: No respiratory distress, breath sounds clear Cardiovascular: Regular rate and rhythm, strong and regular heart tones Abdomen: Nontender, normal bowel sounds, soft, no CVA tenderness Musculoskeletal: Normal gait, no swelling or edema Skin: No rashes or induration, no lesions, only visible skin inspected Neuro: No neurological deficits, normal sensation Psychiatric: Oriented ?3, normal affect Assessment and Plan Assessment and Plan (1) Hematuria: (2) Kidney stones: Plan Right ESWL scheduled with Dr. Vargas December 27, 2023.
[2023-12-18 11:11] LABS: Basophils Percent Auto 0.6 % (0.2-2.0); Eosinophils Absolute Auto 0.1 10^3/uL (0.0-0.7); Eosinophils Percent Auto 1.4 % (0.9-7.0); Hematocrit 39.5 % (36.0-48.0); Hemoglobin 13.2 g/dL (12.0-16.0); Immature Granulocytes Abs Auto 0.02 10^3/uL (0.00-0.03); Immature Granulocytes Pct Auto 0.4 % (0.0-0.5); Lymphocytes Absolute Auto 1.9 10^3/uL (1.2-3.8); Lymphocytes Percent Auto 36.7 % (20.5-60.0); Mean Corpuscular HGB Conc 33.4 g/dL (29.9-35.2); Mean Corpuscular Hemoglobin 31.9 pg (26.7-34.0); Mean Corpuscular Volume 95.4 fL (81.0-99.0); Mean Platelet Volume 10.1 fL (9.5-13.5); Monocytes Absolute Auto 0.4 10^3/uL (0.3-0.8); Monocytes Percent Auto 8.1 % (1.7-12.0); Neutrophils Absolute Auto 2.7 10^3/uL (1.4-6.5); Neutrophils Percent Auto 52.8 % (43.0-75.0); Platelet Count 221 10^3/uL (150-450); Red Blood Count 4.14 10^6/uL (4.20-5.40); Red Cell Distribution Width 13.1 % (11.0-15.0)
[2023-12-18 11:19] LABS: INR 1.03; Partial Thromboplastin Time 24.8 sec (22.3-36.2); Prothrombin Time 10.9 sec (9.0-11.6)
[2023-12-18 11:45] LABS: Anion Gap 12.5; BUN Creatinine Ratio 11.1; Calcium 9.6 mg/dL (8.5-10.1); Chloride 106 mmol/L (98-107); Estimated GFR (African America >60 (>=60); Estimated GFR (Non-African Ame >60 (>=60); Glucose 118 mg/dL (74-106); Potassium 3.5 mmol/L (3.5-5.1); Sodium 138 mmol/L (136-145)
== END 2023-12-18 09:33 | disposition home or self-care (01) ==
LOC: PST 09:32
PROVIDERS: Visit Provider Urology
DX: Z01.812 Encounter for preprocedural laboratory examination (principal); Z01.818 Encounter for other preprocedural examination; N20.0 Calculus of kidney
CPT/HCPCS: 80048; 85025; 85610; 85730; G0463

== ENCOUNTER 2023-12-27 08:43 | Day surgery (SDC) | payer MEDICARE, SELFPAY ==
[2023-12-18 10:26] VITALS: BP 148/83; PULSE 54; TEMP 36.3; O2SAT 99; BMI 30.5
[2023-12-27] VITALS (11 sets, daily range): BP systolic 101–155; BP diastolic 58–99; PULSE 48–54; TEMP 36–36.3; O2SAT 90–100; BMI 30.5
--- OUTSIDE RECORDS SUMMARY | 2023-12-27 09:05 | XMS_ITS | CCD ---
Author Organization [facility] CliniSymt Care Team Providers Care Burning Supervisor Name Role Phone Medardo Robles Primary Care Provider SANDRA, DR RAMOS Admitting Unavailable MISC, DR AVILA Primary Care Unavailable SANDRA, DR RAMOS Attending Unavailable SANDRA, DR RAMOS Consulting Unavailable MISC, DR AVILA Primary Care Unavailable SANDRA, DR RAMOS Attending Unavailable SANDRA, DR RAMOS Consulting Unavailable SANDRA, DR RAMOS Admitting Unavailable ZIEBER, DR ANDREW Peña Consulting Unavailable Medardo Robles MD Primary Care Provider Medardo Robels MD Primary Care Provider Medardo Robles MD Primary Care Provider Medardo Robles MD Primary Care Provider [phone] ADELE ATISH P Admitting Unavailable MEDARDO ROBLES Primary Care Unavailable Medardo Robles MD Primary Care Provider MEDARDO ROBLES Primary Care Physician [phone] XIMENA ARCHULETA Attending Unavailable MEDARDO ROBLES Primary [...] FLORES Attending Unavailable Rachel FLORES Attending Unavailable GalLashaun sauer Admitting Unavailable GalLashaun sauer Attending Unavailable Rachel FLORES Attending Unavailable Allergies Allergy Classification Reported Allergen(s) Allergy Type Date of Onset Reaction(s) Facility (20 sources) Penicillins; Translations: [PENICILLINS] Propensity to adverse reactions to drug 1 Nausea And Vomiting, Unknown (qualifier value) [place] (16 sources) Sulfonamides (Antibiotic) Propensity to adverse reactions to drug 1 Nausea And Vomiting [place] (1 source) Penicillin Drug Allergy 7 [facility] (1 source) Sulfonamides (Antibiotic) Drug allergy (disorder) 7 [facility] (20 sources) Penicillins Propensity to adverse reactions to drug 1 Other (See Comments), Nausea And Vomiting [facility] (20 sources) Sulfonamides (Antibiotic); Translations: [SULFA (SULFONAMIDE ANTIBIOTICS)] Propensity to adverse reactions to drug 1 Other (See Comments), Nausea And Vomiting [facility] (5 sources) Sulfonamides (Antibiotic); Translations: [sulfa drugs] Drug allergy Unknown (qualifier value) [facility] Medications Current Medications Medication Drug Class(es) Dates [...] Active Start: 07-11-2021 take 1 capsule by [facility] once daily doxycycline hyclate 100 mg Cap 100 mg = 1 cap(s), Oral, Daily, Take 1 pill the day before the procedure and 1 pill after the procedure, # 2 cap(s), Refills(s) 0, [facility]: [facility], 163, cm, 07/11/21 11:42:00 EST, Height/Length Dosing, 84.1, kg, 07/11/21 11:42:00 E... Start Date: 07/11/21 Status: Ordered hydroCHLOROthiazide 50 mg oral tablet (20 sources) Thiazide Diuretic Start: 11-16-2023 take 1 tablet by mouth once daily hydrochlorothiazide 50 mg Tab 50 mg = 1 tab(s), Oral, Daily, # 90 tab(s), Refills(s) 3, [facility]: [id number], 163, cm, 11/16/23 10:15:00 EDT, Height/Length Dosing, 82.7, kg, 11/16/23 10:15:00 EDT, Weight Dosing Start Date: 11/16/23 Status: Ordered Start: 07-11-2021 take 1 tablet by [facility] once daily hydroCHLOROthiazide (HYDRODIURIL) 50 MG tablet Take 1 tablet by mouth daily 0 10/19/2022 Active Start: 01-11-2015 End: 09-15-2022 take 1 tablet by mouth once daily hydrochlorothiazide 25 mg Tab 25 mg = 1 tab(s), Oral, Daily, # 90 tab(s), Refills(s) 3, [facility]: [facility], 163, cm, 04/04/21 11:03:00 EST, Height/Length [...] A DAY 180 tablet 0 08/07/2022 Active nitrofurantoin, macrocrystals 25 mg / nitrofurantoin, monohydrate 75 mg oral capsule (2 sources) Nitrofuran Antibacterial Start: 12-24-2023 End: 12-31-2023 take 1 capsule by mouth twice daily Macrobid 100 mg Cap 100 mg = 1 cap(s), Oral, BID, X 7 day(s), # 14 cap(s), Refills(s) 0, Pharmacy: [id number], 163, cm, 11/16/23 10:15:00 EDT, Height/Length Dosing, 82.7, kg, 11/16/23 10:15:00 EDT, Weight Dosing Start Date: 12/24/23 Stop Date: 12/31/23 Status: Ordered rivaroxaban 20 mg oral tablet (20 sources) [...] Active Start: 04-18-2018 take 1 tablet by lpue th once daily at breakfast rivaroxaban (XARELTO) [...] hour 50 mL/hr, Intravenous, Continuous, Starting on Emiyl 09/14/22 at 1515, PACU (only) cholecalciferol 0.025 mg oral tablet (20 sources) Vitamin D Start: 09-14-2022 End: 09-15-2022 take 1000 [IU] by mouth once daily 1,000 Units, Oral, Daily, First dose on Emily 09/14/22 at 1700 50 ml clindamycin 18 mg/ml injection (2 sources) Lincosamide Antibacterial Start: 09-14-2022 End: 09-14-2022 900 mg, Intravenous, at 100 mL/hr, Once, On Emily 09/14/22 at 1700, For 1 dose Initiate 6 hours after start of pre-procedure dose. Indication (POST PROCEDURE): Cardiothoracic Start: 09-14-2022 End: 09-15-2022 clindamycin (CLEOCIN) IVPB 9 00 mg (premix) K-Effervescent 25 mEq oral tablet, effervescent (3 sources) Start: 11-16-2023 take 1 tablet by mouth twice daily K-Effervescent 25 mEq oral tablet, effervescent 25 mEq = 1 tab(s), Oral, BID, MELVIN, # 60 tab(s), Refills(s) 11, [facility]: [id number], 163, cm, 11/16/23 10:15:00 EDT, Height/Length Dosing, 82.7, kg, 11/16/23 10:15:00 EDT, Weight Dosing Start Date: 11/16/23 Status: Ordered potassium bicarbonate 20 meq effervescent oral tablet (1 source) Start: 11-01-2021 take 1 tablet by mouth twice daily potassium bicarbonate 20 mEq oral tablet, effervescent 20 mEq = 1 tab(s), Oral, BID, # 60 tab(s), Refills(s) 11, [facility]acy: [facility] [address], 163, cm, 07/26/21 10:30:00 EST, Height/Length Dosing, [...] PLACED TUBE OR TUBE less than 14 Zimbabwean. To administer dissolved tablet(s) mix with 4 [...] Start: 01-14-2021 take 1 tablet by lupe once daily potassium chloride (KLOR-CON M) 20 MEQ extended release tablet TAKE 1 TABLET BY MOUTH EVERY DAY 90 tablet 0 01/14/2021 Active Start: 08-12-2019 take 1 tablet by lupe once daily potassium chloride (KLOR-CON M) 20 MEQ extended release tablet TAKE 1 TABLET BY MOUTH ONE TIME A DAY 90 tablet 3 08/12/2019 Active Start: 09-12-2018 take 1 tablet by lupe once daily potassium chloride (KLOR-CON M) 20 [...] 05-12-2015 Chronic Genitourinary symptoms and ill-defined conditions (13 sources) Dysuria; Translations: [Dysuria] Onset: 04-09-2021 Episodic Heart valve disorders (20 sources) Mitral valve regurgitation; Translations: [Nonrheumatic mitral (valve) insufficiency] Onset: 12-04-2013 12-04-2013 Chronic Nutritional deficiencies (20 sources) Vitamin D deficiency; Translations: [Vitamin D deficiency, unspecified] Onset: 09-29-2016 09-29-2016 Chronic Osteoporosis (17 sources) Osteoporosis; Translations: [Age-related osteoporosis without current pathological fracture] Onset: 05-12-2015 05-12-2015 Chronic Other aftercare (4 sources) Long-term current use of anticoagulant 04-02-2020 [...] Episodic Other diseases of kidney and ureters (4 sources) Cyst of kidney 11-17-2022 Episodic Other nutritional; endocrine; and metabolic disorders (1 source) Obese class I; Translations: [Body mass index (BMI) 31.0-31.9, adult] Onset: 11-17-2022 Chronic Other nutritional; endocrine; and metabolic disorders (4 sources) Body mass index 30+ - obesity 11-17-2022 Chronic Residual codes; unclassified (1 source) Patient encounter status; Translations: [Other specified health status] Onset: 11-17-2022 Episodic Unclassified (4 sources) Asymptomatic microscopic hematuria 04-02-2020 Unclassified (4 sources) Long-term current use of aspirin 04-02-2020 Unclassified (4 sources) Non-smoker 11-17-2022 Unclassified (4 sources) Chronic atrial fibrillation, unspecified; Translations: [Chronic atrial fibrillation, unspecified] Onset: 11-06-2022 Urinary tract infections (10 sources) Urinary tract infectious disease; Translations: [Urinary [...] 11-11-2012 11-11-2012 Episodic Other aftercare (1 source) penitentiary (current) use of anticoagulants; Translations: [RESIDENTIAL CURRNT USE ANTICOAGULANTS] Onset: 04-09-2021 Episodic Other [...] Reference Range Facility Ambulatory Visit Summaryon 0 12-24-2023 Ambulatory Visit Summary Ambulatory Visit Summary SAPNA BREEN :1950 Visit Date:12/24/2023 Ambulatory Visit Instructions Your Care Team Attending Physician - SANDRA SAMSON, Rachel Peña Primary Care Physician - CONNER SAMSON, MEDARDO Rubio This Is Your Medications List alendronate (alendronate 70 mg oral tablet) aspirin (aspirin 81 mg oral tablet) diltiazem (Cartia XT 120 mg/24 hours oral capsule, extended release) hydrochlorothiazide (hydrochlorothiazide 50 mg Tab) lisinopril (lisinopril 5 mg Tab) metoprolol (metoprolol 50 mg ER Tab) potassium bicarbonate (K-Effervescent 25 mEq oral tablet, effervescent) Procedures Performed Procedure on heart valve (09/14/2021), Lithotripsy of kidney (05/21/2010), Cystoscopy, ESWL of kidney, ESWL of kidney, Watchman. Medications What How Much When Instructions Unchanged alendronate (alendronate 70 mg oral tablet) 1 Tablets By Mouth Every 7 days Unchanged aspirin (aspirin 81 mg oral tablet) Unchanged diltiazem (Cartia XT 120 mg/ 24 hours oral capsule, extended release) Unchanged hydrochlorothiazide (hydrochlorothiazide 50 mg Tab) 1 Tablets By Mouth Every day Unchanged lisinopril (lisinopril 5 mg Tab) Unchanged metoprolol (metoprolol 50 mg ER Tab) 1 Tablets By Mouth 2 times a day Unchanged potassium bicarbonate (K-Effervescent 25 mEq oral tablet, effervescent) 1 Tablets By Mouth 2 times a day MELVIN Allergies penicillins (Unknown) sulfa drugs (Unknown) Problems [...] you for choosing us for your care. Lawson Ramos [facility] Ambulatory Visit Summaryon 0 11-16-2023 Ambulatory Visit [...] Following Appointments Follow Up with SANDRA SAMSON, SANTIAGO Sands When: Where: [address] [place], [place] [id number]- Medications What How Much When Instructions Unchanged [...] ? 8 oz (237 mL) of milk, drpvmgf-qmttnxflpudw-iu iry milk, and calcium-fortifiedfruit juice. Calcium-fortified means [...] beans, textured (more content not included)... Normal [facility] Urology Office/Clinic Noteon 11-16-2023 Urology Office/Clinic Note [...] on GoodRx for Effer-K 25mEq bid at [place], it should only be $15-16. Will switch pt back to Effer-K 25mEq bid for appropriate stone prevention. Reports she tries to drink enough water, unsure of volume. CT AP w IV con 07/13/21 [facility] - no large or obstructing urinary tract [...] When Contact Information SANDRA SAMSON, Rachel Peña, URL [address] [place] [address]- Additional Instructions: Sched R ESWL Patient Education Dietary Guidelines to Help Prevent Kidney Stones I, Kristina Raymundo, personally scribed for Dr. Flores on 11/16/2023 10:53:52. . Documentation recorded by the scribe, Kristina Raymundo, accurately reflects the services(s) I performed and [...] virus vaccine, inactivated 02/16/2022 Recorded SARS-CoV-2 (COVID-19) [id number] 02/16/2022 Recorded pneumococcal 20-valent co (more content not included)... Normal [facility] Comment on above: Result Comment: Elec [...] Tobramycin 4 SUSCEPTIBLE Trimethoprim/Sulfa >=320 RESISTANT Resistant [facility] Comment on above: Performed By: #### U RC #### [facility] [employer] [address] [place] [address] [id number] Remote Broadcast Engineer: Drew Craven MD [facility] [address] [address] Remote Broadcast Engineer: Lazarus Gan MD Cult,Urineon 10-07-2023 Cult,Urine Specimen [...] Tobramycin 2 SUSCEPTIBLE Trimethoprim/Sulfa >=320 RESISTANT Resistant [facility] Comment on above: Performed By: #### U RC #### [facility] [address] [place] [address] [place] [id number] Remote Broadcast Engineer: Drew Craven MD [facility] [address] [place] [id number] Remote Broadcast Engineer: Lazarus Gan MD CBC with Diffon 04-09-2023 Abs. Basophil 0.01 k/uL Normal 0.00-0.20 [facility] Comment on above: Performed By: #### C P, ZFAST, MG, CDP, TSHX #### [facility] [address] [place] [address] Remote Broadcast Engineer: Lazarus Gan MD #### LIPR #### [address] [id number] Remote Broadcast Engineer: Drew Craven MD Abs.Imm.Granulocyte 0.01 k/uL Normal 0.00-0.30 [facility] Comment on above: Performed By: #### C P, ZFAST, MG, CDP, TSHX #### [facility] [address] [place] [address] Remote Broadcast Engineer: Lazarus Gan MD #### LIPR #### [place] [id number] Remote Broadcast Engineer: Drew Craven MD Abs.Neutrophil (Seg) 1.71 k/uL Low 2.5-7.0 [facility] Comment on above: Performed By: #### C P, ZFAST, MG, CDP, TSHX #### [facility] [address] [place] [address] Remote Broadcast Engineer: Lazarus Gan MD #### LIPR #### [address] [id number] Remote Broadcast Engineer: Drew Craven MD Basophils/100 WBC (Bld) 0 % Normal 0-2 [facility] Comment on above: Performed By: #### C P, ZFAST, MG, CDP, TSHX #### [facility] [address] [place] [address] Remote Broadcast Engineer: Lazarus Gan MD #### LIPR #### [address] [phone] Remote Broadcast Engineer: Drew Craven MD Eosinophils (Bld) [#/Vol] 0.09 10*3/uL Normal 0.00-0.40 [facility] Comment on above: Performed By: #### C P, ZFAST, MG, CDP, TSHX #### [facility] [address] [place] [address] Remote Broadcast Engineer: Lazarus Gan MD #### LIPR #### [place] [id number] Remote Broadcast Engineer: Drew Craven MD Eosinophils/100 WBC (Bld) 3 % Normal 0-5 [facility] Comment on above: Performed By: #### C P, ZFAST, MG, CDP, TSHX #### [facility] [address] [place] [address] Remote Broadcast Engineer: Lazarus Gan MD #### LIPR #### [place] [id number] Remote Broadcast Engineer: Drew Craven MD Erythrocyte distribution width (RBC) [Ratio] 13.5 % Normal 12.1-15.2 [facility] Comment on above: Performed By: #### C P, ZFAST, MG, CDP, TSHX #### [facility] [address] [place] [address] Remote Broadcast Engineer: Lazarus Gan MD #### LIPR #### [address] [id number] Remote Broadcast Engineer: Drew Craven MD Hematocrit (Bld) [Volume fraction] 39.6 % Normal 36.0-46.0 [facility] Comment on above: Performed By: #### C P, ZFAST, MG, CDP, TSHX #### [facility] [address] [place], [place] [id number] Remote Broadcast Engineer: Lazarus Gan MD #### LIPR #### [address] [id number] Remote Broadcast Engineer: Drew Craven MD Hemoglobin (Bld) [Mass/Vol] 13.0 g/dL Normal 12.0-16.0 [facility] Comment on above: Performed By: #### C P, ZFAST, MG, CDP, TSHX #### [facility] [address] [place], [place] [id number] Remote Broadcast Engineer: Lazarus Gan MD #### LIPR #### [address] [phone] Remote Broadcast Engineer: Drew Craven MD Immature granulocytes/100 WBC (Bld) 0 % Normal 0-5 [facility] Comment on above: Performed By: #### C P, ZFAST, MG, CDP, TSHX #### [facility] [address] [place], [place] [id number] Remote Broadcast Engineer: Lazarus Gan MD #### LIPR #### [address] [id number] Remote Broadcast Engineer: Drew Craven MD Lymphocytes (Bld) [#/Vol] 1.25 10*3/uL Normal 1.00-4.80 [facility] Comment on above: Performed By: #### C P, ZFAST, MG, CDP, TSHX #### [facility] [address] [place] [address] Remote Broadcast Engineer: Lazarus Gan MD #### LIPR #### [address] [id number] Remote Broadcast Engineer: Drew Craven MD Lymphocytes/100 WBC (Bld) 36 % Normal 15-40 [facility] Comment on above: Performed By: #### C P, ZFAST, MG, CDP, TSHX #### [facility] [address] [place], [place] [phone] Remote Broadcast Engineer: Lazarus Gan MD #### LIPR #### [address] [id number] Remote Broadcast Engineer: Drew Craven MD MCH (RBC) [Entitic mass] 30.8 pg Normal 26.0-34.0 [facility] Comment on above: Performed By: #### C P, ZFAST, MG, CDP, TSHX #### [facility] [address] [place], [place] [id number] Remote Broadcast Engineer: Lazarus Gan MD #### LIPR #### [address] [phone] Remote Broadcast Engineer: Drew Craven MD MCHC (RBC) [Mass/Vol] 32.8 g/dL Normal 31.0-37.0 [facility] Comment on above: Performed By: #### C P, ZFAST, MG, CDP, TSHX #### [facility] [address] [place], [place] [id number] Remote Broadcast Engineer: Lazarus Gan MD #### LIPR #### [address] [address] Remote Broadcast Engineer: Drew Craven MD MCV (RBC) [Entitic vol] 93.8 fL Normal 80.0-100.0 [facility] Comment on above: Performed By: #### C P, ZFAST, MG, CDP, TSHX #### [facility] [address] [place], [place] [phone] Remote Broadcast Engineer: Lazarus Gan MD #### LIPR #### [address] [phone] Remote Broadcast Engineer: Drew Craven MD Monocytes (Bld) [#/Vol] 0.40 10*3/uL Normal 0.00-1.00 [facility] Comment on above: Performed By: #### C P, ZFAST, MG, CDP, TSHX #### [facility] [address] [place] [address] Remote Broadcast Engineer: Lazarus Gan MD #### LIPR #### [address] [id number] Remote Broadcast Engineer: Drew Craven MD Monocytes/100 WBC (Bld) 12 % High 4-8 [facility] Comment on above: Performed By: #### C P, ZFAST, MG, CDP, TSHX #### [facility] [address] [place] [address] Remote Broadcast Engineer: Lazarus Gan MD #### LIPR #### [address] [id number] Remote Broadcast Engineer: Drew Craven MD Neutrophil (Seg) 49 % Normal 47-75 [facility] Comment on above: Performed By: #### C P, ZFAST, MG, CDP, TSHX #### [facility] [address] [place] [address] Remote Broadcast Engineer: Lazarus Gan MD #### LIPR #### [address] [id number] Remote Broadcast Engineer: Drew Craven MD Platelet mean volume (Bld) [Entitic vol] 9.9 fL Normal 6.0-12.0 [facility] Comment on above: Performed By: #### C P, ZFAST, MG, CDP, TSHX #### [facility] [address] [place] [address] Remote Broadcast Engineer: Lazarus Gan MD #### LIPR #### [address] [id number] Remote Broadcast Engineer: Drew Craven MD Platelets (Bld) [#/Vol] 191 10*3/uL Normal 140-450 [facility] Comment on above: Performed By: #### C P, ZFAST, MG, CDP, TSHX #### [facility] [address] [place], [place] [id number] Remote Broadcast Engineer: Lazarus Gan MD #### LIPR #### [address] [address] Remote Broadcast Engineer: Drew Craven MD RBC (Bld) [#/Vol] 4.22 10*6/uL Normal 4.00-5.20 [facility] Comment on above: Performed By: #### C P, ZFAST, MG, CDP, TSHX #### [facility] [address] [place], [place] [id number] Remote Broadcast Engineer: Lazarus Gan MD #### LIPR #### [address] [address] Remote Broadcast Engineer: Drew Craven MD WBC (Bld) [#/Vol] 3.5 10*3/uL Normal 3.5-11.0 [facility] Comment on above: Performed By: #### C P, ZFAST, MG, CDP, TSHX #### [facility] [address] [place], [place] [phone] Remote Broadcast Engineer: Lazarus Gan MD #### LIPR #### [address] [address] Remote Broadcast Engineer: Drew Craven MD Comp Metabolic Profon 2022 Albumin [Mass/Vol] 4.0 g/dL Normal 3.5-5.2 [facility] Comment on above: Performed By: #### C P, ZFAST, MG, CDP, TSHX #### [facility] [address] [place], [place] [phone] Remote Broadcast Engineer: Lazarus Gan MD #### LIPR #### [facility] [address] [place], [place] [phone] Remote Broadcast Engineer: Drew Craven MD Alkaline Phos 63 U/L Normal 35-104 [facility] Comment on above: Performed By: #### C P, ZFAST, MG, CDP, TSHX #### [facility] [address] [place], [place] [id number] Remote Broadcast Engineer: Lazarus Gan MD #### LIPR #### [place] [address] [place], [place] [id number] Remote Broadcast Engineer: Drew Craven MD ALT [Catalytic activity/Vol] 43 U/L High 5-33 [facility] Comment on above: Performed By: #### C P, ZFAST, MG, CDP, TSHX #### [facility] [address] [place] [address] Remote Broadcast Engineer: Lazarus Gan MD #### LIPR #### [facility] [address] [place], [place] [id number] Remote Broadcast Engineer: Drew Craven MD Anion gap [Moles/Vol] 9 mmol/L Normal 9-17 [facility] Comment on above: Performed By: #### C P, ZFAST, MG, CDP, TSHX #### [facility] [address] [place] [address] Remote Broadcast Engineer: Lazarus Gan MD #### LIPR #### [facility] [address] [place], [place] [id number] Remote Broadcast Engineer: Drew Craven MD AST [Catalytic activity/Vol] 29 U/L Normal <32 [facility] Comment on above: Performed By: #### C P, ZFAST, MG, CDP, TSHX #### [facility] [address] [place] [address] Remote Broadcast Engineer: Lazarus Gan MD #### LIPR #### [place] [address] [place], [place] [id number] Remote Broadcast Engineer: Drew Craven MD Bilirubin [Mass/Vol] 0.6 mg/dL Normal 0.3-1.2 [facility] Comment on above: Performed By: #### C P, ZFAST, MG, CDP, TSHX #### [facility] [address] [place], [place] [id number] Remote Broadcast Engineer: Lazarus Gan MD #### LIPR #### [place] [address] [place], [place] [id number] Remote Broadcast Engineer: Drew Craven MD BUN/CRE Ratio 20 Normal 9-20 [facility] Comment on above: Performed By: #### C P, ZFAST, MG, CDP, TSHX #### [facility] [address] [place] [address] Remote Broadcast Engineer: Lazarus Gan MD #### LIPR #### [address] [id number] Remote Broadcast Engineer: Drew Craven MD Calcium [Mass/Vol] 10.0 mg/dL Normal 8.6-10.4 [facility] Comment on above: Performed By: #### C P, ZFAST, MG, CDP, TSHX #### [facility] [address] [place] [address] Remote Broadcast Engineer: Lazarus Gan MD #### LIPR #### [address] [id number] Remote Broadcast Engineer: Drew Craven MD Chloride [Moles/Vol] 106 mmol/L Normal 98-107 [facility] Comment on above: Performed By: #### C P, ZFAST, MG, CDP, TSHX #### [facility] [address] [place] [address] Remote Broadcast Engineer: Lazarus Gan MD #### LIPR #### [place] [address] [place], [place] [id number] Remote Broadcast Engineer: Drew Craven MD CO2 [Moles/Vol] 24 mmol/L Normal 20-31 [facility] Comment on above: Performed By: #### C P, ZFAST, MG, CDP, TSHX #### [facility] [address] [place] [address] Remote Broadcast Engineer: Lazarus Gan MD #### LIPR #### [address] [phone] Remote Broadcast Engineer: Drew Craven MD Creatinine [Mass/Vol] 0.7 mg/dL Normal 0.5-0.9 [facility] Comment on above: Performed By: #### C P, ZFAST, MG, CDP, TSHX #### [facility] [address] [place] [id number] ( Remote Broadcast Engineer: Lazarus Gan MD #### LIPR #### [address] [phone] Remote Broadcast Engineer: Drew Craven MD GFR/1.73 sq M.predicted among non-blacks MDRD (S/P/Bld) [Vol rate/Area] mL/min/{1.73_m2} Normal >60 [facility] Comment on above: Result Comment: These [...] C P, ZFAST, MG, CDP, TSHX #### [facility] [address] [place] [address] Remote Broadcast Engineer: Lazarus Gan MD #### LIPR #### [address] [address] Remote Broadcast Engineer: Drew Craven MD Glucose [Mass/Vol] 126 mg/dL High 70-99 [facility] Comment on above: Performed By: #### C P, ZFAST, MG, CDP, TSHX #### [facility] [address] [place], [place] [id number] Remote Broadcast Engineer: Lazarus Gan MD #### LIPR #### [address] [phone] Remote Broadcast Engineer: Drew Craven MD Potassium [Moles/Vol] 3.9 mmol/L Normal 3.7-5.3 [facility] Comment on above: Performed By: #### C P, ZFAST, MG, CDP, TSHX #### [facility] [address] [phone] Remote Broadcast Engineer: Lazarus Gan MD #### LIPR #### [address] [phone] Remote Broadcast Engineer: Drew Craven MD Protein [Mass/Vol] 7.0 g/dL Normal 6.4-8.3 [facility] Comment on above: Performed By: #### C P, ZFAST, MG, CDP, TSHX #### [facility] [address] [place], [place] [phone] Remote Broadcast Engineer: Lazarus Gan MD #### LIPR #### [address] [id number] Remote Broadcast Engineer: Drew Craven MD Sodium [Moles/Vol] 139 mmol/L Normal 135-144 [facility] Comment on above: Performed By: #### C P, ZFAST, MG, CDP, TSHX #### [facility] [address] [place], [place] [phone] Remote Broadcast Engineer: Lazarus Gan MD #### LIPR #### [facility] [employer] Plan [facility] [place], [place] [phone] Remote Broadcast Engineer: Drew Craven MD Urea nitrogen [Mass/Vol] 14 mg/dL Normal 8-23 [facility] Comment on above: Performed By: #### C P, ZFAST, MG, CDP, TSHX #### [facility] [address] [place], [place] [phone] Remote Broadcast Engineer: Lazarus Gan MD #### LIPR #### [facility] [employer] [address] [place] [address] [phone] Remote Broadcast Engineer: Drew Craven MD Lipid Profileon 04-09-2023 Cholesterol [Mass/Vol] 160 mg/dL Normal 0-199 [facility] Comment on above: Result Comment: Cholesterol Guidelines: <200 Desirable 200-240 Borderline >240 Undesirable Performed By: #### C P, ZFAST, MG, CDP, TSHX #### [facility] [address] [place], [place] [phone] Remote Broadcast Engineer: Lazarus Gan MD #### LIPR #### [address] [phone] Remote Broadcast Engineer: Drew Craven MD Cholesterol in HDL [Mass/Vol] 42 mg/dL Normal >40 [facility] Comment on above: Result Comment: HDL Guidelines: <40 Undesirable 40-59 Borderline >59 Desirable Performed By: #### C P, ZFAST, MG, CDP, TSHX #### [facility] [address] [place], [place] [phone] Remote Broadcast Engineer: Lazarus Gan MD #### LIPR #### [address] [phone] Remote Broadcast Engineer: Drew Craven MD Cholesterol in LDL [Mass/Vol] 100 mg/dL Normal 0-100 [facility] Comment on above: Result Comment: LDL Guidelines: <100 Desirable 100-129 Near to/above Desirable 130-159 Borderline >159 Undesirable Direct (measured) LDL and calculated LDL are not interchangeable tests. Performed By: #### C P, ZFAST, MG, CDP, TSHX #### [facility] [address] [place], [place] [phone] Remote Broadcast Engineer: Lazarus Gan MD #### LIPR #### [address] [phone] Remote Broadcast Engineer: Drew Craven MD Cholesterol in VLDL [Mass/Vol] 18 mg/dL Normal [facility] Comment on above: Performed By: #### C P, ZFAST, MG, CDP, TSHX #### [facility] [address] [place], [place] [phone] Remote Broadcast Engineer: Lazarus Gan MD #### LIPR #### [address] [phone] Remote Broadcast Engineer: Drew Craven MD Cholesterol.total/Cho lesterol in HDL [Mass ratio] 4.0 {ratio} Normal [facility] Comment on above: Performed By: #### C P, ZFAST, MG, CDP, TSHX #### [facility] [address] [place], [place] [phone] Remote Broadcast Engineer: Lazarus Gan MD #### LIPR #### [address] [phone] Remote Broadcast Engineer: Drew Craven MD Triglyceride [Mass/Vol] 91 mg/dL Normal 0-149 [facility] Comment on above: Result Comment: Triglyceride Guidelines: <150 Desirable 150-199 Borderline 200-499 High >499 Very high Based on AHA Guidelines for fasting triglyceride, February 2012. Performed By: #### C P, ZFAST, MG, CDP, TSHX #### [facility] [address] [place], [place] [phone] Remote Broadcast Engineer: Lazarus Gan MD #### LIPR #### [address], [place] [phone] Remote Broadcast Engineer: Drew Craven MD Magnesiumon 04-09-2023 Magnesium [Mass/Vol] 2.0 mg/dL Normal 1.6-2.6 [facility] Comment on above: Performed By: #### C P, ZFAST, MG, CDP, TSHX #### [facility] [address] [facility] [place], [place] [phone] Remote Broadcast Engineer: Lazarus Gan MD #### LIPR #### [address] [phone] Remote Broadcast Engineer: Drew Craven MD Patient fasting?on 3 Patient fasting? YES Normal [facility] Comment on above: Performed By: #### C P, ZFAST, MG, CDP, TSHX #### [facility] [address] [place], [place] [phone] Remote Broadcast Engineer: Lazarus Gan MD #### LIPR #### [address] [phone] Remote Broadcast Engineer: Drew Craven MD TSH w/reflex to FT4on 2022 Thyroid Stim. Horm. 3.02 uIU/mL Normal 0.30-5.00 [facility] Comment on above: Performed By: #### C P, ZFAST, MG, CDP, TSHX #### [facility] [address] [place], [place] [phone] Remote Broadcast Engineer: Lazarus Gan MD #### LIPR #### [address] [phone] Remote Broadcast Engineer: Drew Craven MD ECG 12 leadon 03-20-2023 Atrial Rate [facility] P Endeavor [facility] P-R Interval [facility] Q-T Interval [facility] Q-T Interval (corrected) [facility] QRS Duration [facility] QTC Calculation (Bezet) [facility] R Endeavor [facility] T Endeavor [facility] Ventricular Rate [facility] CT CCTA HEART (SAXOPHONE PLAYER READ)on 03-15-2023 CT CCTA HEART (SAXOPHONE PLAYER READ) Cardiac Morphology CTA Prior to Cardioversion CPT code: 10926 Patient Name: Sapna Breen Age: 72 y.o. Requesting Physician: Interpreting Oral Health Therapist:: Kaity Kinney M.D. Primary Care Physician: Medardo [...] Image Quality: Good. No significant artifacts. Scanner: [employer] DLP: 247 mGy Radiation dose reduction was [...] SunMar 15, 2023 9:43:09 AM EDT Normal [facility] KRISSY DIGITAL SCREEN EREN Sherman 03-13-2023 [facility] KRISSY DIGITAL SCREEN BILATERAL HISTORY: Screening. [...] Navid Armstrong Jr., MD 03/13/23 Final result Normal [facility] Electrolyteson 11-09-2022 Anion gap [Moles/Vol] 12 mmol/L Normal - [facility] Comment on above: Performed By: #### L YTE #### [facility] [address] [place] [address] Remote Broadcast Engineer: Lazarus Gan MD Chloride [Moles/Vol] 109 mmol/L High 98-107 [facility] Comment on above: Performed By: #### L YTE #### [facility] [address] [place] [address] Remote Broadcast Engineer: Lazarus Gan MD CO2 [Moles/Vol] 21 mmol/L Normal 20-31 [facility] Comment on above: Performed By: #### L YTE #### [facility] [address] [place] [address] Remote Broadcast Engineer: Lazarus Gan MD Potassium [Moles/Vol] 3.8 mmol/L Normal 3.7-5.3 [facility] Comment on above: Performed By: #### L YTE #### [facility] [address] [place] [address] Remote Broadcast Engineer: Lazarus Gan MD Sodium [Moles/Vol] 142 mmol/L Normal 135-144 [facility] Comment on above: Performed By: #### L YTE #### [facility] [address] [place] [address] Remote Broadcast Engineer: Lazarus Gan MD Basic metabolic 2000 panelon 11-06-2022 Anion gap [Moles/Vol] 11 mmol/L 10 - 2 0 mmol/L [facility] Calcium [Mass/Vol] 10.4 mg/dL High 8.4 - 10. 2 mg/dL [facility] Chloride [Moles/Vol] 110 mmol/L High 98 - 10 8 mmol/L [facility] Creatinine [Mass/Vol] 0.91 mg/dL 0.60 - 1.20 mg/dL [facility] GFR/1.73 sq M.predicted CKD-EPI (S/P/Bld) [Vol rate/Area] 67 - PINF [facility] Comment on above: Estimated GFR was ca lculated using the 2020 CKD-EPI creatinine equation. Glucose [Mass/Vol] 136 mg/dL High 65 - 99 mg/dL [facility] HCO3 [Moles/Vol] 22 mmol/L 21 - 32 mmol/L [facility] Interpretation and review of laboratory results Abnormal [facility] Potassium [Moles/Vol] 3.4 mmol/L Low 3.5 - 5.1 mmol/L [facility] Sodium [Moles/Vol] 140 mmol/L 135 - 145 mmol/L [facility] Urea nitrogen [Mass/Vol] 14 mg/dL 8 - 25 mg/dL [facility] Urea nitrogen/Creatinine [Mass ratio] 15.4 mg/mg 10.0 - 20.0 [facility] has implemented the eGFR calculation approach that does not have a coefficient for race that conforms to the NKF-ASN Task Force Recommendations. [facility] CT PULMONARY VEIN WITH RECON STRUCTIONS [...] contrast. CT pulmonary vein protocol was utilized. Oral Health Therapist will interpret the pulmonary vein portion of [...] for dedicated Watchman device and cardiac evaluation. ST/i Workstation ID: [id number] Dictated by: KAYE VAZQUEZ on SunMar 15, 2023 9:14:22 AM EDT Transcribed by: RAHEL RUSS on SunMar 15, 2023 9:20:35 AM EDT Finalized by: KAYE VAZQUEZ on SunMar 15, 2023 4:56:13 PM EDT Normal [facility] Comment on above: Order Comment: Injur y/Trauma or Illness?:Illness/Other How long have you had these symptoms (acute/chronic)?:Acute Reason for exam?:6 month f/u LAAO, supplemental read Type of Exam?:Subsequent/Follow-up Additional signs and symptoms?: ECG 12 leadon 11-06-2022 Atrial Rate [facility] P Endeavor [facility] P-R Interval [facility] Q-T Interval [facility] Q-T Interval (corrected) [facility] QRS Duration [facility] QTC Calculation (Bezet) [facility] R Endeavor [facility] T Endeavor [facility] Ventricular Rate [facility] Basic metabolic 2000 panelon 09-15-2022 Anion gap [Moles/Vol] 10 mmol/L 10 - 2 0 mmol/L [facility] Calcium [Mass/Vol] 9.6 mg/dL 8.4 - 10. 2 mg/dL [facility] Chloride [Moles/Vol] 113 mmol/L High 98 - 10 8 mmol/L [facility] Creatinine [Mass/Vol] 0.78 mg/dL 0.60 - 1.20 mg/dL [facility] GFR/1.73 sq M.predicted CKD-EPI (S/P/Bld) [Vol rate/Area] 80 - PINF [facility] Comment on above: Estimated GFR was ca lculated using the 2020 CKD-EPI creatinine equation. Glucose [Mass/Vol] 167 mg/dL High 65 - 99 mg/dL [facility] HCO3 [Moles/Vol] 24 mmol/L 21 - 32 mmol/L [facility] Interpretation and review of laboratory results Abnormal [facility] Potassium [Moles/Vol] 4.2 mmol/L 3.5 - 5.1 mmol/L [facility] Sodium [Moles/Vol] 143 mmol/L 135 - 145 mmol/L [facility] Urea nitrogen [Mass/Vol] 16 mg/dL 8 - 25 mg/dL [facility] Urea nitrogen/Creatinine [Mass ratio] 20.5 mg/mg High 10.0 - 20.0 [facility] has implemented the eGFR calculation approach that does not have a coefficient for race that conforms to the NKF-ASN Task Force Recommendations. [facility] CBC panel Auto (Bld)on 09-15 Erythrocyte distribution width (RBC) [Entitic vol] 14.4 % 11.6 - 14.8 % [facility] Hematocrit (Bld) [Volume fraction] 36.9 % 36.0 - 46.0 % [facility] Hemoglobin (Bld) [Mass/Vol] 11.8 g/dL Low 12.0 - 16.0 g/dL [facility] Interpretation and review of laboratory results Abnormal [facility] MCH (RBC) [Entitic mass] 31.1 pg 26.0 - 34.0 pg [facility] MCHC (RBC) [Mass/Vol] 32.0 g/dL 31.0 - 37.0 g/dL [facility] MCV (RBC) [Entitic vol] 97.1 fL 80.0 - 100.0 fL [facility] Nucleated RBC (Bld) [#/Vol] 0.00 10*3/uL [facility] Nucleated RBC/100 WBC (Bld) [Ratio] 0.0 % [facility] Platelet mean volume (Bld) [Entitic vol] 10.4 fL 9.4 - 12.4 fL [facility] Platelets (Bld) [#/Vol] 199 10*3/uL [facility] RBC (Bld) [#/Vol] 3.80 10*6/uL Low 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 A Limited [...] Kaity Kinney MD on 09/15/2022 08:53 AM [facility] Radiology Study observation (narrative) [facility] Echocardiogram limitedOrdere d By: Kaity Kinney on 09-15-2022 [facility] Work Phone: XR CHEST AP/PA AND LATon [...] SunSep 15, 2022 7:56:13 AM EDT Normal [facility] Comment on above: Order Comment: Injur y/Trauma or Illness?:Illness/Other How long have you had these symptoms (acute/chronic)?:Acute Reason for exam?:s/p LAAO with 27 mm WATCHMAN FLX History of cancer?:u Surgeries, chemotherapy, or radiation?:u Type of Exam?:Initial Additional signs and symptoms?:n XR Chest AP/PA and LATon No active disease. Please see above for discussion. Workstation ID: [id number] [facility] EXAMINATION: XR CHEST AP/PA AND LAT HISTORY: [...] Stable contours. Bones: No acute bony abnormality. [facility] Octavia Molina MD - 09/15/2022 EXAMINATION: XR [...] see above for discussion. Workstation ID: [id number] [facility] Radiology Study observation (narrative) [facility] XR Chest AP/PA and LATOrdere d By: Octavia Molina on 09-15-2022 [facility] Work Phone: ACT Coag (Bld)on 09-14-2022 Kaolin activated time Qn (Bld) 275 seconds [facility] Blood type and Indirect anti body screen panel (Bld)on 09-14-2022 ABO and Rh group Nom (Bld) Blood group O Rh(D) positive [facility] Blood group antibody screen Ql Negative [facility] Specimen Expires 09/17/2022 23:59 EST [facility] Cardiac Catheterizationon [facility] Radiology Study observation (narrative) [facility] ECHO DELMAR INTRAOP TRANSCATHET ER PROCEDUREon 09-14-2022 ECHO DELMAR INTRAOP TRANSCATHETER PROCEDURE Patient Info Name: SAPNA BREEN Age: 71 years : 1950 Gender: Female Ht: 163 cm Wt: 83 kg BSA: 1.97 m2 HR: 80 bpm BP: 172 / 90 mmHg Heart Rhythm: Atrial Fibrillation Technical Quality: Good Exam Date: 09/14/2022 11:18 AM Patient Status: Outpatient Heel Cementer Machine: Merry Ramirez RCDS Exam Type: ECHO DELMAR INTRAOP TRANSCATHETER PROCEDURE Study Info Indications I48.91 - Unspecified atrial fibrillation Referring Physician: ADELE Syed; [id number] BMI: 31.41 kg/m2 Summary 1. A complete [...] an iatrogenic atrial septal intra-atrial shunt with nuwi-lz-syyir flow on color Doppler. 3. 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 A complete [...] an iatrogenic atrial septal intra-atrial shunt with sxkr-ez-hjaip flow on color Doppler. 3. The left [...] Michelle Antonio MD on 09/14/2022 03:[address] 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 A complete [...] an iatrogenic atrial septal intra-atrial shunt with wpia-ln-noaho flow on color Doppler. 3. The left [...] Michelle Antonio MD on 09/14/2022 03:22 PM [facility] Radiology Study observation (narrative) [facility] Echocardiogram intraop DELMAR g uidanceOrdered By: Michelle Antonio on 09-14-2022 [facility] Work Phone: INR Coag (PPP) [Relative lana e]Ordered By: Fuentes Kovacs on 09-14-2022 Interpretation and review of laboratory results Normal [facility] PT Coag (PPP) [Time] 13.7 s [facility] During the induction phase of oral anticoagulation, the INR may not reflect the anticoagulation status of the patient. Therapeutic ranges for INR's are: Most clinical situations: INR 2.0-3.0 Mechanical Prosthetic Valve: INR 2.5-3.5 Critical: INR >5.0 [facility] - Blood bankon ABO and Rh group Nom (Bld) 5100 [facility] ABO and Rh group Nom (Bld) Blood group O Rh(D) positive [facility] No Panel Informationon 09-14 Cross Match Compatible [facility] Product ID Red Blood Cells [facility] Status Info Ready for issue [facility] PT/INROrdered By: Fuentes zuñiga on 09-14-2022 INR Coag (PPP) [Relative time] 1.1 {INR} 0.8 - 1.1 [facility] Prepare RBC: 2 Unitson 09-14 Product Code [id number] [facility] Product Code [id number] [facility] Unit Number [id number] [facility] Unit Number [id number] [facility] ECG 12 leadon 08-22-2022 Atrial Rate [facility] P Endeavor [facility] P-R Interval [facility] Q-T Interval [facility] Q-T Interval (corrected) [facility] QRS Duration [facility] QTC Calculation (Bezet) [facility] R Endeavor [facility] T Endeavor [facility] Ventricular Rate [facility] Electrolyte Panelon 10-11-19 22 Anion gap [Moles/Vol] 10 mmol/L 9 - 17 mmol/L [facility] Chloride [Moles/Vol] 110 mmol/L High 98 - 10 7 mmol/L [facility] CO2 [Moles/Vol] 23 mmol/L 20 - 31 mmol/L [facility] Interpretation and review of laboratory results Abnormal [facility] Potassium [Moles/Vol] 4.0 mmol/L 3.7 - 5.3 mmol/L [facility] Sodium [Moles/Vol] 143 mmol/L 135 - 144 mmol/L [facility] FISHon 07-20-2021 BLADDER CANCER FISH FINDINGS Comment Normal [facility] Comment on above: Result Comment: Nega tive [employer] Result Fluorescence in situ hybridization (FISH) of cells recovered from urine was performed using the [employer] UroVysion Kit. A minimum of twenty-five cells was examined, and an abnormal signal pattern was not detected, indicating a NEGATIVE result. The performance characteristics of this test have been validated by [employer]. A positive result is the detection of four or more cells with greater than two signals for at least two chromosomes (3, and/or 7, and/or 17) and/or twelve or more cells with no signal for chromosome 9. Probes: 3cen(D3Z1), 7cen(D7Z1), 9p21(p16), 17cen(D17Z1) Performed By: #### F ISHUV #### [facility] [address] [address] [address] Red Longo CLINICAL DATA Comment Normal [facility] Comment on above: Result Comment: No c linical data specified Performed By: #### F ISHUV #### [facility] [address] [address] [address] Red Longo CPT CODES Comment Normal [facility] Comment on above: Result Comment: [id number] Performed By: #### F ISHUV #### [facility] [address] [address] [address] Red Longo ELECTRONICALLY SIGNED Comment Normal [facility] Comment on above: Result Comment: Josiah Hairston MD. Performed By: #### F ISHUV #### [facility] [address] [place] [address] Dr. Red Longo SPECIMEN DESCRIPTION Comment Normal [facility] Comment on above: Result Comment: Rece ived is 60ml of yellow, cloudy, preserved urine. Performed By: #### F ISHUV #### [facility] [address] [address] [address] Red Longo Specimen type Nom (Spec) Comment Normal [facility] Comment on above: Result Comment: Unsp ecified Collection Method Performed By: #### F ISHUV #### [facility] [address] [place] [address] Dr. Red Longo BUN & Creatinineon 2 Creatinine [Mass/Vol] 0.73 mg/dL 0.50 - 0.90 mg/dL [facility] Zinc Ahead GFR >60 >60 mL/min [facility] Zinc Ahead GFR Non- >60 >60 mL/min [facility] Zinc Ahead GFR/1.73 sq M.predicted MDRD (S/P/Bld) [Vol rate/Area] [facility] Comment on above: Average GFR for 70 o r more years old: 75 mL/min/1.73sq m Chronic Kidney Disease: <60 mL/min/1.73sq m Kidney failure: <15 mL/min/1.73sq m eGFR calculated using average adult body mass. Additional eGFR calculator available at: http://www.elastic.io.com/multiple_crcl_2012.htm Urea nitrogen (BldV) [Mass/Vol] 14 mg/dL 8 - 23 mg/dL [employer] Electrolyte Panelon 07-13-19 Anion gap [Moles/Vol] 12 mmol/L 9 - 17 mmol/L [facility] [employer] Chloride [Moles/Vol] 105 mmol/L 98 - 10 7 mmol/L [facility] CO2 [Moles/Vol] 23 mmol/L 20 - 31 mmol/L [facility] [employer] Potassium [Moles/Vol] 3.8 mmol/L 3.7 - 5.3 mmol/L [facility] [employer] Sodium [Moles/Vol] 140 mmol/L 135 - 144 mmol/L [facility] No Panel Informationon 07-13 [facility] CYTOLOGYon 07-11-2021 SENT TO REF LAB 07/12/21 Normal [facility] Comment on above: Performed By: #### C YTO #### [facility] [address] [place] [address] Dr. Red Longo XR KUB 1 VIEWon [...] by: ANDREW POLANCO Date: 2021-04-04 17:07 Normal [facility] KRISSY DIGITAL SCREEN BILA TERALOrdered By: Medardo Robles on 03-03-2021 BI-RADS 1 - Negative , no evidence of malignancy. Normal interval followup in 12 months. OVERALL ASSESSMENT- NEGATIVE A letter of notification will be sent to the patient regarding the results. [employer] Work Phone: HISTORY: Screening. Family history of breast carcinoma. TECHNIQUE: Bilateral digital screening mammogram with CAD. 2-D and 3-D tomography. FINDINGS: Two views of each breast show scattered areas of fibroglandular density. No change from prior studies the most recent of 01/14/2020. Suspicious calcifications: None. Suspicious mass: None. (If skin markers were applied, circles represent skin lesions and linear markers represent scars.) [facility] [employer] Work Phone: [facility] Work Phone: CBC Auto Differentialon 11-2 Basophils (Bld) [#/Vol] 0.00 10*3/uL [place] Basophils/100 WBC (Bld) 1 % 0 - 2 % [place] Differential Type YES [place] Eosinophils (Bld) [#/Vol] 0.10 10*3/uL [place] Eosinophils/100 WBC (Bld) 2 % 0 - 5 % [place] Erythrocyte distribution width (RBC) [Ratio] 13.5 % 12.1 - 15.2 % [place] Hematocrit (Bld) [Volume fraction] 39.8 % 36 - 46 % [place] Hemoglobin (Bld) [Mass/Vol] 13.7 g/dL 12 - 16 g/dL [place] Interpretation and review of laboratory results Abnormal [place] Lymphocytes (Bld) [#/Vol] 1.60 10*3/uL [place] Lymphocytes/100 WBC (Bld) 37 % 15 - 40 % [place] MCH (RBC) [Entitic mass] 31.9 pg 26 - 34 pg [place] MCHC (RBC) [Mass/Vol] 34.4 g/dL 31 - 37 g/dL [place] MCV (RBC) [Entitic vol] 92.7 fL 80 - 100 fL [place] Monocytes (Bld) [#/Vol] 0.50 10*3/uL [place] Monocytes/100 WBC (Bld) 11 % High 4 - 8 % [place] Platelet mean volume (Bld) [Entitic vol] NOT REPORTED 6 - 12 fL [employer] Platelets (Bld) [#/Vol] 206 10*3/uL [place] Platelets (Bld) [#/Vol] NOT REPORTED [place] RBC (Bld) [#/Vol] 4.30 10*6/uL 4 - 5.2 m/uL [place] RBC morphology finding Nom (Bld) NOT REPORTED [place] Segmented neutrophils/100 WBC (Bld) 49 % 47 - 75 % [place] Segs Absolute 2.20 [place] WBC (Bld) [#/Vol] 4.4 10*3/uL [place] WBC (Bld) [#/Vol] NOT REPORTED per 100 WBC [place] WBC Morphology NOT REPORTED [place] Comprehensive Metabolic Pane johnathon 04-13-2020 Albumin [Mass/Vol] 4.2 g/dL 3.5 - 5.2 g/dL [place] Albumin/Globulin [Mass ratio] NOT REPORTED [place] ALP [Catalytic activity/Vol] 60 U/L 35 - 104 U/L [place] ALT [Catalytic activity/Vol] 44 U/L High 5 - 33 U/L [place] Anion gap [Moles/Vol] 10 mmol/L 9 - 17 mmol/L [place] AST [Catalytic activity/Vol] 30 U/L <32 [place] Bilirubin Ql (U) 0.73 mg/dL 0.3 - 1.2 mg/dL [place] Bun/Cre Ratio 25 [place] Calcium [Mass/Vol] 10.9 mg/dL High 8.6 - 10. 4 mg/dL [place] Chloride [Moles/Vol] 108 mmol/L High 98 - 10 7 mmol/L [place] CO2 [Moles/Vol] 20 mmol/L 20 - 31 mmol/L [place] Creatinine [Mass/Vol] 0.84 mg/dL 0.5 - 0.9 mg/dL [place] GFR >60 >60 mL/min [place] GFR Non- >60 >60 mL/min [place] GFR/1.73 sq M predicted among non-blacks MDRD (S/P/Bld) [Vol rate/Area] [place] Comment on above: Average GFR for 70 o r more years old: 75 mL/min/1.73sq m Chronic Kidney Disease: <60 mL/min/1.73sq m Kidney failure: <15 mL/min/1.73sq m eGFR calculated using average adult body mass. Additional eGFR calculator available at: http://www.Boedo/multiple_crcl_2012.htm GFR/1.73 sq M predicted among non-blacks MDRD (S/P/Bld) [Vol rate/Area] NOT REPORTED [place] Glucose [Mass/Vol] 117 mg/dL High 70 - 99 mg/dL [place] Potassium [Moles/Vol] 3.7 mmol/L 3.7 - 5.3 mmol/L [place] Protein [Mass/Vol] 7.4 g/dL 6.4 - 8.3 g/dL [place] Sodium [Moles/Vol] 138 mmol/L 135 - 144 mmol/L [place] Urea nitrogen [Mass/Vol] 21 mg/dL 8 - 23 mg/dL [place] Hemoglobin A1Con 04-13-2020 Glucose [Mass/Vol] 117 mg/dL [place] Comment on above: The ADA and AACC rec ommend providing the estimated average glucose result to permit better patient understanding of their HBA1c result. HbA1c (Bld) [Mass fraction] 5.7 % 4 - 6 % [place] Lipid Panelon 04-13-2020 Cholesterol [Mass/Vol] 192 mg/dL <200 [place] Comment on above: Cholesterol Guidelines: <200 Desirable 200-240 Borderline >240 Undesirable Cholesterol in HDL [Mass/Vol] 48 mg/dL >40 [place] Comment on above: HDL Guidelines: <40 Undesirable 40-59 Borderline >59 Desirable Cholesterol in LDL [Mass/Vol] 125 mg/dL 0 - 130 mg/dL [place] Comment on above: LDL Guidelines: <100 Desirable 100-129 Near to/above Desirable 130-159 Borderline >159 Undesirable Direct (measured) LDL and calculated LDL are not interchangeable tests. Cholesterol in VLDL [Mass/Vol] NOT REPORTED 1 - 30 mg/dL [place] Cholesterol.total/Cho lesterol in HDL [Mass ratio] 4 {ratio} <5 [place] Triglyceride [Mass/Vol] 97 mg/dL <150 [place] Comment on above: Triglyceride Guidelines: <150 Desirable 150-199 Borderline 200-499 High >499 Very high Based on AHA Guidelines for fasting triglyceride, February 2012. Magnesiumon 04-13-2020 Magnesium [Mass/Vol] 2.2 mg/dL 1.6 - 2 .6 mg/dL [place] Otheron 04-13-2020 Interpretation and review of laboratory results Abnormal [place] Immature granulocytes (Bld) [#/Vol] NOT REPORTED 0 % [place] Patient Fasting?on 0 Patient Fasting? yes [place] T4, Freeon 04-13-2020 Thyroxine, Free 1.05 ng/dL 0.93 - 1.7 ng/dL [place] TSH with Reflexon 04-13-2020 TSH Qn 5.86 m[IU]/L High [employer] Vitamin D 25 Hydroxyon 04-13 Vit D, 25-Hydroxy 58 ng/mL 30 - 100 ng/mL [place] Comment on above: Reference Range: Vitamin D status Range Deficiency <20 ng/mL Mild Deficiency 20-30 ng/mL Sufficiency 30-100 ng/mL Toxicity >100 ng/mL XR CHEST (2 VW)on 04-13-2020 No acute heart or gurjit ng disease identified. [place] Frontal and lateral chest Clinical: Atrial fibrillation. COMPARISON: 04/21/2019. Heart and vascularity are unremarkable. Lungs are expanded and free of focal infiltrates. Mild spondylosis of the spine is noted. There is a slight to mild scoliotic deformity of the thoracolumbar spine with convexity to the right. [place] Alexx, Mhpn Incoming Radiant Results From new test company/[employer] - 04/13/2020 12:15 PM EST Frontal and lateral chest Clinical: Atrial fibrillation. COMPARISON: 04/21/2019. Heart and vascularity are unremarkable. Lungs are expanded and free of focal infiltrates. Mild spondylosis of the spine is noted. There is a slight to mild scoliotic deformity of the thoracolumbar spine with convexity to the right. IMPRESSION: No acute heart or lung disease identified. [place] Uric AcidOrdered By: Medardo haile on 06-16-2019 Interpretation and review of laboratory results [facility]: Urate [Mass/Vol] 9.9 mg/dL High 2.4 - 5.7 mg/dL [facility] Phone: CBC Auto Differentialon Basophils (Bld) [#/Vol] 0.00 10*3/uL [place] Basophils/100 WBC (Bld) 0 % 0 - 2 % [place] Differential Type YES [place] Eosinophils (Bld) [#/Vol] 0.10 10*3/uL [place] Eosinophils/100 WBC (Bld) 1 % 0 - 5 % [place] Erythrocyte distribution width (RBC) [Ratio] 14.0 % 12.1 - 15.2 % [place] Hematocrit (Bld) [Volume fraction] 39.4 % 36 - 46 % [place] Hemoglobin (Bld) [Mass/Vol] 13.4 g/dL 12 - 16 g/dL [place] Lymphocytes (Bld) [#/Vol] 1.60 10*3/uL [place] Lymphocytes/100 WBC (Bld) 30 % 15 - 40 % [place] MCH (RBC) [Entitic mass] 31.8 pg 26 - 34 pg [place] MCHC (RBC) [Mass/Vol] 33.9 g/dL 31 - 37 g/dL [place] MCV (RBC) [Entitic vol] 93.7 fL 80 - 100 fL [place] Monocytes (Bld) [#/Vol] 0.40 10*3/uL [place] Monocytes/100 WBC (Bld) 8 % 4 - 8 % [place] Platelet mean volume (Bld) [Entitic vol] NOT REPORTED 6 - 12 fL [employer] Platelets (Bld) [#/Vol] NOT REPORTED [place] Platelets (Bld) [#/Vol] 228 10*3/uL [place] RBC (Bld) [#/Vol] 4.21 10*6/uL 4 - 5.2 m/uL [place] RBC morphology finding Nom (Bld) NOT REPORTED [place] Segmented neutrophils/100 WBC (Bld) 61 % 47 - 75 % [place] Segs Absolute 3.30 [place] WBC (Bld) [#/Vol] 5.4 10*3/uL [place] WBC (Bld) [#/Vol] NOT REPORTED per 100 WBC [place] WBC Morphology NOT REPORTED [place] Comprehensive Metabolic Pane johnathon 04-21-2019 Albumin [Mass/Vol] 4.4 g/dL 3.5 - 5.2 g/dL [place] Albumin/Globulin [Mass ratio] NOT REPORTED [place] ALP [Catalytic activity/Vol] 63 U/L 35 - 104 U/L [place] ALT [Catalytic activity/Vol] 54 U/L High 5 - 33 U/L [place] Anion gap [Moles/Vol] 14 mmol/L 9 - 17 mmol/L [place] AST [Catalytic activity/Vol] 31 U/L <32 [place] Bilirubin Ql (U) 0.77 mg/dL 0.3 - 1.2 mg/dL [place] Bun/Cre Ratio 19 [place] Calcium [Mass/Vol] 10.8 mg/dL High 8.6 - 10. 4 mg/dL [place] Chloride [Moles/Vol] 104 mmol/L 98 - 10 7 mmol/L [place] CO2 [Moles/Vol] 22 mmol/L 20 - 31 mmol/L [place] Creatinine [Mass/Vol] 0.72 mg/dL 0.5 - 0.9 mg/dL [place] GFR >60 >60 mL/min [place] GFR Non- >60 >60 mL/min [place] GFR/1.73 sq M predicted among non-blacks MDRD (S/P/Bld) [Vol rate/Area] NOT REPORTED [place] GFR/1.73 sq M predicted among non-blacks MDRD (S/P/Bld) [Vol rate/Area] [place] Comment on above: Average GFR for 70 o r more years old: 75 mL/min/1.73sq m Chronic Kidney Disease: <60 mL/min/1.73sq m Kidney failure: <15 mL/min/1.73sq m eGFR calculated using average adult body mass. Additional eGFR calculator available at: http://www.Boedo/multiple_crcl_2012.htm Glucose [Mass/Vol] 122 mg/dL High 70 - 99 mg/dL [place] Interpretation and review of laboratory results Abnormal [place] Potassium [Moles/Vol] 3.6 mmol/L Low 3.7 - 5.3 mmol/L [place] Protein [Mass/Vol] 7.7 g/dL 6.4 - 8.3 g/dL [place] Sodium [Moles/Vol] 140 mmol/L 135 - 144 mmol/L [place] Urea nitrogen [Mass/Vol] 14 mg/dL 8 - 23 mg/dL [place] Lipid Panelon 04-21-2019 Cholesterol [Mass/Vol] 184 mg/dL <200 [place] Comment on above: Cholesterol Guidelines: <200 Desirable 200-240 Borderline >240 Undesirable Cholesterol in HDL [Mass/Vol] 52 mg/dL >40 [place] Comment on above: HDL Guidelines: <40 Undesirable 40-59 Borderline >59 Desirable Cholesterol in LDL [Mass/Vol] 111 mg/dL 0 - 130 mg/dL [place] Comment on above: LDL Guidelines: <100 Desirable 100-129 Near to/above Desirable 130-159 Borderline >159 Undesirable Direct (measured) LDL and calculated LDL are not interchangeable tests. Cholesterol in VLDL [Mass/Vol] NOT REPORTED 1 - 30 mg/dL [place] Cholesterol.total/Cho lesterol in HDL [Mass ratio] 3.5 {ratio} <5 [place] Triglyceride [Mass/Vol] 107 mg/dL <150 [place] Comment on above: Triglyceride Guidelines: <150 Desirable 150-199 Borderline 200-499 High >499 Very high Based on AHA Guidelines for fasting triglyceride, February 2012. Magnesiumon 04-21-2019 Magnesium [Mass/Vol] 2.2 mg/dL 1.6 - 2 .6 mg/dL [place] Otheron 04-21-2019 Immature granulocytes (Bld) [#/Vol] NOT REPORTED [place] Patient Fasting?on 9 Patient Fasting? yes [place] TSH with Reflexon 04-21-2019 TSH Qn 3.29 m[IU]/L [employer] Vitamin D 25 Hydroxyon 04-21 Vit D, 25-Hydroxy 51.6 ng/mL 30 - 100 ng/mL [place] Comment on above: Reference Range: Vitamin D status Range Deficiency <20 ng/mL Mild Deficiency 20-30 ng/mL Sufficiency 30-100 ng/mL Toxicity >100 ng/mL XR CHEST STANDARD (2 VW)on 06-22-2018 [facility] [place] EXAM: XR CHEST (2 VW ) HISTORY: Reason for exam:->Afib COMPARISON: Chest 03/29/2018. TECHNIQUE: 2 views chest FINDINGS: Heart size normal. Lungs clear. Bony thorax and upper abdomen normal. [place] Alexx, Mhpn Incoming Radiant Results From new test company/[employer] - 04/21/2019 1:22 PM EST EXAM: XR CHEST (2 VW) HISTORY: Reason for exam:->Afib COMPARISON: Chest 03/29/2018. TECHNIQUE: 2 views chest FINDINGS: Heart size normal. Lungs clear. Bony thorax and upper abdomen normal. IMPRESSION: Negative chest. [place] Progress Noteon 04-05-2018 HIM IP Note OR Fryline Attendant Normal [facility] Progress Noteon 03-19-2018 HIM IP Note OR Fryline Attendant Normal [facility] Progress Noteon 02-15-2018 HIM IP Note OR Fryline Attendant Normal [facility] Progress Noteon 09-17-2017 HIM IP Note OR [employer]line Attendant Normal [facility] Vital Signs Date Time Vital Sign Value Performing Clinician Facility 11-16-2023 10:12-0400 Blood Pressure Location Rachelcathy FLORES [facility] 11-16-2023 10:12-0400 Diastolic blood pressure 83 mm[Hg] Rachelcathy FLORES [facility] 11-16-2023 10:12-0400 Heart rate 80 /min Rachelcathy FLORES [facility] 11-16-2023 10:12-0400 Respiratory rate 16 /min Rachelcathy FLORES [facility] 11-16-2023 10:12-0400 Systolic blood pressure 138 mm[Hg] Rachel FLORES [facility] 09-07-2023 08:33-0400 Body height 162.6 cm Ximena Archuleta CNP Work Phone: [facility] 09-07-2023 08:33-0400 Body mass index (BMI) [Ratio] 31.76 kg/m2 Ximena Archuleta [employer] Work Phone: [facility] 09-07-2023 08:33-0400 Body weight 83.92 kg Ximena Archuleta [employer] REPAIR[employer] Work Phone: [facility] 09-07-2023 08:33-0400 Diastolic blood pressure 73 mm[Hg] Ximena Archuleta [employer] REPAIRER Work Phone: [facility] 09-07-2023 08:33-0400 Heart rate 55 /min Ximena Archuleta [employer] REPA[employer] Work Phone: [facility] 09-07-2023 08:33-0400 SaO2% (BldA) [Mass fraction] 98 % Ximena Archuleta CNP Work Phone: [facility] 09-07-2023 08:33-0400 Systolic blood pressure 124 mm[Hg] Ximena Archuleta [employer] REPAIRER Work Phone: [facility] 03-20-2023 09:18-0400 Diastolic blood pressure 81 mm[Hg] Ximena Archuleta ZIPPER REPAIRER Work Phone: [facility] 03-20-2023 09:18-0400 Systolic blood pressure 150 mm[Hg] Ximena Archuleta [employer]IPPER REPAIRER Work Phone: [facility] 03-20-2023 09:13-0400 Body height 162.6 cm Ximena Archuleta [employer]IPPER REPAIRER Work Phone: [facility] 03-20-2023 09:13-0400 Body mass index (BMI) [Ratio] 31.93 kg/m2 Ximena Archuleta [employer] REPA[employer] Work Phone: [facility] 03-20-2023 09:13-0400 Body weight 84.37 kg Ximena Archuleta [employer]IPPER REPAIRER Work Phone: [facility] 03-20-2023 09:13-0400 Heart rate 56 /min Ximena Archuleta CNP Work Phone: [facility] 03-20-2023 09:13-0400 SaO2% (BldA) [Mass fraction] 96 % Ximena Archuleta [employer]IPPER REPAIRER Work Phone: [facility] 11-17-2022 10:01-0400 Blood Pressure Location Rachel FLORES [facility] 11-17-2022 10:01-0400 Diastolic blood pressure 87 mm[Hg] Rachel FLORES [facility] 11-17-2022 10:01-0400 Heart rate 58 /min Rachel FLORES [facility] 11-17-2022 10:01-0400 Systolic blood pressure 137 mm[Hg] Rachel FLORES [facility] 11-06-2022 10:21-0400 Body mass index (BMI) [Ratio] 31.76 kg/m2 Ximena Archuleta [employer]PER REPAIRER Work Phone: [facility] 11-06-2022 10:21-0400 Body weight 83.92 kg Ximena Archuleta ZIPPER REPAIRER Work Phone: [facility] 11-06-2022 10:21-0400 Diastolic blood pressure 80 mm[Hg] Ximena Archuleta ZIPPER REPAIRER Work Phone: [facility] 11-06-2022 10:21-0400 Heart rate 64 /min Ximena Archuleta ZIPPER REPAIRER Work Phone: [facility] 11-06-2022 10:21-0400 SaO2% (BldA) [Mass fraction] 95 % Ximena Archuleta ZIPPER REPAIRER Work Phone: [facility] 11-06-2022 10:21-0400 Systolic blood pressure 125 mm[Hg] Ximena Archuleta CNP Work Phone: [facility] 09-15-2022 08:29-0400 Heart rate 60 /min Pollo Angulo MD Work Phone: [facility] 09-15-2022 07:06-0400 Body temperature 98.01 [degF] Pollo Angulo MD Work Phone: [facility] 09-15-2022 07:06-0400 Diastolic blood pressure 76 mm[Hg] Pollo Angulo MD Work Phone: [facility] 09-15-2022 07:06-0400 Respiratory rate 12 /min Pollo Angulo MD Work Phone: [facility] 09-15-2022 07:06-0400 SaO2% (BldA) [Mass fraction] 96 % Pollo Angulo MD Work Phone: [facility] 09-15-2022 07:06-0400 Systolic blood pressure 149 mm[Hg] Pollo Angulo MD Work Phone: [facility] 09-14-2022 09:11-0400 Body height 162.6 cm Pollo Angulo MD Work Phone: [facility] 09-14-2022 09:11-0400 Body mass index (BMI) [Ratio] 31.41 kg/m2 Pollo Angulo MD Work Phone: [facility] 09-14-2022 09:11-0400 Body weight 83.01 kg Pollo Angulo MD Work Phone: [facility] 08-22-2022 08:06-0400 Diastolic blood pressure 86 mm[Hg] Pollo Angulo MD Work Phone: [facility] 08-22-2022 08:06-0400 Systolic blood pressure 147 mm[Hg] Pollo Angulo MD Work Phone: [facility] 08-22-2022 08:05-0400 Body weight 85 kg Pollo Angulo MD Work Phone: [facility] 08-22-2022 08:05-0400 Heart rate 61 /min Pollo Angulo MD Work Phone: [facility] 08-22-2022 08:05-0400 SaO2% (BldA) [Mass fraction] 95 % Pollo Angulo MD Work Phone: [facility] Encounters Encounter Date Encounter Type Care Provider Facility Start: 12-27-2023 ambulatory Rachel Felderi ty:CD:[id number] Start: 12-24-2023 End: 12-24-2023 Lab Drop off Lashaun Mcintyre [facility] Start: 12-24-2023 End: 12-24-2023 ambulatory Lashaun Mcintyre Facility:[facility] Start: 12-24-2023 End: 12-24-2023 Patient encounter procedure Rachel FLORES [facility] Start: 11-16-2023 End: 11-16-2023 ambulatory Rachel R SANDRA Facility:[facility] Start: 11-16-2023 End: 11-16-2023 Patient encounter procedure Rachel FLORES [facility] Start: 11-06-2023 End: 11-06-2023 ambulatory JESSICA [facility] Start: 10-05-2023 End: 10-05-2023 ambulatory JESSICA [facility] Start: 09-07-2023 End: 09-11-2023 ambulatory XIMENA ANN HUSSEIN [facility] Start: 09-07-2023 End: 09-07-2023 Office outpatient visit 15 minutes Ximena Archuleta CNP Work Phone: [facility] Comment on above: Atrial fibrillation, unspecified type (HCC) (Primary Dx) Start: 04-19-2023 End: 04-21-2023 ambulatory KYLE [facility] Start: 04-09-2023 End: 04-09-2023 ambulatory KYLE [facility] Start: 03-20-2023 End: 03-20-2023 ambulatory XIMENA ANN HUSSEIN [facility] Start: 03-20-2023 End: 03-20-2023 Office outpatient visit 15 minutes Ximena Archuleta CNP Work Phone: [facility] Comment on above: Atrial fibrillation, unspecified type (HCC) (Primary Dx); Presence of Watchman left atrial appendage closure device Start: 03-15-2023 End: 03-16-2023 ambulatory [facility] Start: 03-09-2023 End: 03-11-2023 ambulatory MEDARDO ROBLES [facility] Start: 03-09-2023 Encounter for genera l adult medical examination without abnormal findings MEDARDO L [facility] Start: 03-02-2023 Documentation procedure Jack Escobar RN [facility] Start: 02-28-2023 Orders Only Jack Escobar RN [facility] Comment on above: Atrial fibrillation, chronic (HCC) (Primary Dx) Start: 11-17-2022 End: 11-17-2022 Patient encounter procedure Rachel FLORES [facility] Start: 11-13-2022 Refill Jack Escobar RN [facility] Comment on above: Medication Refill Start: 11-09-2022 End: 11-09-2022 ambulatory RACHEL FLORES [facility] Start: 11-06-2022 End: 11-10-2022 ambulatory XIMENA ARCHULETA [facility] Start: 11-06-2022 End: 11-06-2022 Office outpatient visit 15 minutes [place] Genoveva [facility] Work Phone: [facility] Comment on above: Atrial fibrillation, chronic (HCC) (Primary Dx); Presence of Watchman left atrial appendage closure device Start: 11-03-2022 End: 11-03-2022 Subsequent hospital visit by physician Medardo Robles MD Work Phone: [facility] Comment on above: Dysuria Start: 09-22-2022 ambulatory MEDARDO ROBLES [facility] Start: 09-14-2022 Orders Only Jack Escobar RN [facility] Comment on above: Atrial fibrillation, chronic (HCC) (Primary Dx) Start: 09-14-2022 End: 09-15-2022 Evaluation and management of inpatient [facility] Start: 09-14-2022 End: 09-15-2022 Evaluation and management of inpatient Pollo Angulo MD Work Phone: [facility] Start: 09-11-2022 End: 09-15-2022 ambulatory MEDARDO L. [facility] Start: 09-11-2022 End: 09-15-2022 Encounter for other preprocedural examination WENDELL Marysol [facility] Start: 09-08-2022 Documentation procedure Jack Escobar RN [facility] Start: 08-30-2022 End: 09-03-2022 Orders Only Jack Escobar RN [facility] Comment on above: Pre-op testing (Prim fariha Dx); Atrial fibrillation, chronic (HCC) Start: 08-30-2022 Patient encounter status Jack Escobar RN [facility] Start: 08-28-2022 Orders Only Jack Escobar RN [facility] Comment on above: Atrial fibrillation, unspecified type (HCC) (Primary Dx); Atrial fibrillation, chronic (HCC) Atrial fibrillation, unspecified type (HCC) (Primary Dx) Medication Refill Start: 08-25-2022 Documentation procedure Jack Escobar RN [facility] Start: 08-22-2022 End: 08-22-2022 Office outpatient new 60 minutes Pollo Angulo MD Work Phone: [facility] Comment on above: Atrial fibrillation, unspecified type (HCC) (Primary Dx); Essential hypertension Start: 08-17-2022 Chart abstracting Sj Carver [facility] Start: 08-16-2022 Documentation procedure Anna Kelly [facility] Start: 03-06-2022 End: 03-08-2022 Subsequent hospital visit by physician Steve Mammography Room [facility] Comment on above: Visit for screening mammogram Start: 10-10-2021 End: 10-10-2021 Subsequent hospital visit by physician Medardo Robles MD Work Phone: [facility] Start: 08-24-2021 End: 08-24-2021 Subsequent hospital visit by physician Medardo Robles MD Work Phone: [facility] Comment on above: Dysuria; Acute cystitis with hematuria Start: 07-13-2021 End: 07-13-2021 Subsequent hospital visit by physician Medardo Robles MD Work Phone: [facility] Start: 07-11-2021 End: 07-11-[address] RACHEL FLORES Facility:[facility] Start: 04-04-2021 End: 04-05-[address] DOCTOR FITZPATRICK Facility:[facility] Start: 03-03-2021 End: 03-05-2021 Subsequent hospital visit by physician Steve Mammography Room [facility] Comment on above: Visit for screening mammogram Start: 02-28-2021 End: 02-28-2021 Subsequent hospital visit by physician Medardo Robles MD Work Phone: [facility] Comment on above: Dysuria Start: 04-13-2020 [...] by physician Medardo Robles MD Work Phone: [facility] Comment on above: Pain and swelling [...] w/i&r Ximena Archuleta CNP Work Phone: Start: 03-09-2023 Mammography Ximena chi CNP Work Phone: Start: 11-06-2022 Ecg routine ecg w/le ast 12 lds w/i&r Ximena Archuleta CNP Work Phone: Start: 04-28-2023 Echo transthorc r-t 2d w/wo m-mode rec [...] Phone: Start: 09-14-2022 Packed RBC preparation Pollo Agnulo MD Work Phone: Start: 09-14-2022 Blood typing serologic abo Pollo Angulo MD Work Phone: Start: 09-14-2022 Prothrombin time Pollo Angulo MD Work Phone: Start: 08-22-2022 Ecg routine ecg w/le ast 12 lds w/i&r Pollo Angulo MD Work Phone: Start: 03-06-2022 Mammography Pollo caceres MD Work Phone: Start: 10-10-2021 Electrolyte panel Patri ck R Flores Work Phone: Start: 09-14-2021 Procedure on heart valve Rachel FLORES Start: 07-13-2021 Electrolyte panel Patri ck R Flores Work Phone: Start: 03-03-2021 Screening mammograph y bi 2-view breast inc cad Medardo Robles MD Work Phone: Start: 04-13-2020 Radiologic exam ches t 2 views Kyle Cabrera Work Phone: Start: 04-13-2020 25 hydroxy includes fractions if performed Kyle Cabrera Work Phone: Start: 04-13-2020 Assay of free thyroxine Kyle Cabrera Work Phone: Start: 04-13-2020 Assay of magnesium Kyle Cabrera Work Phone: Start: 04-13-2020 Assay of thyroid sti mulating hormone tsh Kyle Cabrera Work Phone: Start: 04-13-2020 Blood count complete auto&auto difrntl wbc Kyle Cabrera Work Phone: Start: 04-13-2020 Comprehensive metabo lic panel Kyle Cabrera Work Phone: Start: 04-13-2020 Hemoglobin glycosylated a1c Kyle Cabrera Work Phone: Start: 04-13-2020 Lipid panel Kyle caballero Work Phone: Start: 04-13-2020 PATIENT FASTING? Kyle Cabrera Work Phone: Start: 04-13-2020 Ecg routine ecg w/le ast 12 lds w/i&r Kyle Cabrera Work Phone: Start: 06-16-2019 Assay of blood/uric acid Medardo Robles MD Work Phone: Start: 04-21-2019 Radiologic exam ches t 2 views Kyle Cabrera Work Phone: Start: 04-21-2019 25 hydroxy includes fractions if performed Kyle Cabrera Work Phone: Start: 04-21-2019 Assay of magnesium Kyle Cabrera Work Phone: Start: 04-21-2019 Assay of thyroid sti mulating hormone tsh Kyle Cabrera Work Phone: Start: 04-21-2019 Blood count complete auto&auto difrntl wbc Kyle Cabrera Work Phone: Start: 04-21-2019 Comprehensive metabo lic panel Kyle Cabrera Work Phone: Start: 04-21-2019 Lipid panel Kyle caballero Work Phone: Start: 04-21-2019 PATIENT FASTING? Kyle Cabrera Work Phone: Start: 06-14-2015 Colonoscopy Medardo bustos MD Work Phone: Start: 05-21-2010 Renal lithotripsy Patarcelia FLORES Cystoscopy Rachel FLORES Extracorporeal shock wave lithotripsy of calculus of kidney Rachel FLORES Watchman (occupation) Lucio FLORES Plan of Treatment Date Care Activity Detail Author Start: 06-30-2032 DTaP/Tdap/Td vaccine (2 - Td or Tdap) DTaP/Tdap/Td vaccine (2 - Td or Tdap) [facility] Start: 06-30-2032 Tetanus vaccination Tetanus: Every 10yrs [facility] Start: 04-11-2027 Lipid panel Lipids [facility] Start: 04-15-2026 Lipid panel [facility] Start: 06-14-2025 Colon cancer screen colonoscopy [facility] [place] Start: 06-14-2025 [facility] Start: 04-13-2025 Lipid panel Lipid screen [facility] Work Phone: Start: 04-30-2024 History and physical examination, annual for health maintenance Wellness Visit [facility] Start: 04-21-2024 Lipid panel Lipid screen [employer] [place] Start: 04-21-2024 Lipid screen [place]id [place] Start: 03-09-2024 Screening for malignant neoplasm of breast Mammogram [facility] Start: 03-06-2024 Screening for malignant neoplasm of breast Breast cancer screen [facility] Start: 10-26-2023 Depression Screen Depression Screen [facility] Start: 09-07-2023 End: 09-07-2023 Patient encounter procedure 09/07/2023 9:00 AM EDT Office Visit [facility] [address] [facility] [place] [address] Ximena Archuleta CNP [address] [place] [address] [facility] Start: 04-30-2023 End: 04-30-2023 Patient encounter procedure 04/30/2023 Office Visit Family Medicine Medardo Robles MD [address] [place] [address] [facility] Start: 04-27-2023 Annual Wellness Visit (AWV) Annual Wellness Visit (AWV) [facility] Start: 04-26-2023 History and physical examination, annual for health maintenance Wellness Visit [facility] Start: 04-19-2023 End: 04-19-2023 Patient encounter procedure 04/19/2023 Office Visit Cardiology Kyle Cabrera MD [address] [place] [address] [facility] Weight Clerk Start: 03-29-2023 Lipid screen Lipid screen [place] Start: 03-20-2023 End: 03-20-2023 Patient encounter procedure 03/20/2023 9:30 AM EDT Office Visit [facility] [address] [facility] [place] [address] Ximena Archuleta CNP [address] [place] [address] [facility] Start: 03-16-2023 End: 09-15-2023 CT Pulmonary Vein With Reconstructions 3D CT Pulmonary Vein With Reconstructions 3D Imaging Routine Atrial fibrillation, chronic (HCC) Expected: 03/16/2023, Expires: 09/15/2023 [facility] Work Phone: Comment on above: Expected: 03/16/2023, Expires: Start: 03-15-2023 End: 03-15-2023 Patient encounter procedure 03/15/2023 9:00 AM EDT Appointment [facility] CT Scan [address] [place] [phone] Pollo Angulo MD [address] [place] [address] [facility] [address] Scan Start: 03-06-2023 Screening for malignant neoplasm of breast Mammogram [facility] Start: 03-03-2023 Screening for malignant neoplasm of breast Breast cancer screen [employer] Start: 01-19-2023 COVID-19 Vaccine () COVID-19 Vaccine () [facility] Start: 01-19-2023 Influenza vaccination Sequential Influenza Vaccine (#1) [facility] Start: 11-06-2022 End: 11-06-2022 Patient encounter procedure 11/06/2022 10:30 AM EDT Office Visit [facility] [address] [facility] [place] [address] Ximena Archuleta CNP [address] [place] [address] [facility] Start: 09-14-2022 End: 09-14-2022 Admission to same day surgery center [facility] Cardiovascular Lab Comment on above: Left Atrial Appendage Closure Start: 09-14-2022 Subsequent hospital visit by physician [facility] Procedural Care Unit Start: 09-05-2022 End: 08-31-2023 Blood type and Indirect antibody screen panel - Blood Type and Screen Blood Bank Routine Pre-op testing Expected: 09/05/2022, Expires: 08/31/2023 [facility] Comment on above: Expected: 09/05/2022, Expires: Start: 09-05-2022 End: 08-31-2023 Complete blood count with white cell differential, manual CBC and differential Lab Routine Pre-op testing Expected: 09/05/2022, Expires: 08/31/2023 [facility] Work Phone: Comment on above: Expected: 09/05/2022, Expires: 4 Start: 09-05-2022 End: 08-31-2023 Comprehensive metabolic 2000 panel - Serum or Plasma Comprehensive metabolic panel Lab Routine Pre-op testing Expected: 09/05/2022, Expires: 08/31/2023 [facility] Comment on above: Expected: 09/05/2022, Expires: 4 Start: 09-05-2022 End: 08-31-2023 INR in Platelet poor plasma by Coagulation assay Pro[facility]-INR Lab Routine Pre-op testing Atrial fibrillation, chronic (HCC) Expected: 09/05/2022, Expires: 08/31/2023 [facility] Comment on above: Expected: 09/05/2022, Expires: 4 Start: 09-05-2022 End: 09-05-2022 Patient encounter procedure [facility] CT Scan Start: 08-24-2022 Depression Screen Depression Screen [facility] Start: 08-22-2022 End: 08-22-2022 Patient encounter procedure 08/22/2022 8:00 AM EDT Office Visit [facility] [address] [place] [address] [place] [address] Pollo Angulo MD [address] [place] [phone] [facility] Start: 07-13-2022 Creatinine measurement Creatinine monitoring [facility] Start: 07-13-2022 Potassium monitoring Potassium monitoring [facility] Start: 04-26-2022 Annual Wellness Visit (AWV) Annual Wellness Visit (AWV) [facility] Start: 04-26-2022 End: 04-26-2022 Patient encounter procedure 04/26/2022 Office Visit Family Medicine Medardo Robles MD [address] [place], [place] [phone] [facility] Start: 04-25-2022 Depression Screen Depression Screen [facility] Start: 04-25-2022 Hemoglobin A1c measurement A1C test (Diabetic or Prediabetic) [facility] Start: 04-20-2022 End: 04-20-2022 Patient encounter procedure 04/20/2022 Office Visit Cardiology Kyle Cabrera MD [address] [place] [address] [facility] Weight Clerk Start: 01-19-2022 Influenza vaccination [facility] Start: 01-13-2022 Screening for malignant neoplasm of breast Breast cancer screen [facility], [place] Start: 10-24-2021 End: 10-24-2021 Patient encounter procedure 10/24/2021 Office Visit Family Medicine Medardo Robles MD [address] [place] [address] [facility] Start: 04-25-2021 End: 04-25-2021 Patient encounter procedure 04/25/2021 Office Visit Family Medicine Medardo Robles MD [address] [place] [address] [phone] [facility] Start: 04-21-2021 End: 04-21-2021 Patient encounter procedure 04/21/2021 Office Visit Cardiology Kyle Cabrera MD [address] [place] [address] [phone] [facility] Weight Clerk Start: 04-13-2021 Creatinine [facility] Start: 04-13-2021 Hemoglobin A1c measurement A1C test (Diabetic or Prediabetic) [facility] Phone: Start: 04-13-2021 Potassium monitoring Potassium monitoring [facility] Phone: Start: 04-04-2021 Shingles Vaccine (2 of 2) Shingles Vaccine (2 of 2) [facility] Phone: Start: 03-03-2021 End: 03-03-2021 Patient encounter procedure 03/03/2021 Appointment Radiology [facility] Start: 02-18-2021 Annual Wellness Visit (AWV) Annual Wellness Visit (AWV) [place] Start: 02-17-2021 Pneumococcal 65+ years Vaccine (2 - PCV) Pneumococcal 65+ years Vaccine (2 - PCV) [facility] Start: 01-19-2021 Influenza vaccination Flu vaccine (#1) [facility] Start: 10-04-2020 Breast cancer screen Breast cancer screen [place] Start: 04-22-2020 End: 04-22-2020 Office Visit 04/22/2020 Office Visit Cardiology Kyle Cabrera MD [address] [place] [address] [facility] Weight Clerk Start: 04-21-2020 Creatinine measurement Creatinine monitoring [facility] [place] Start: 04-21-2020 Creatinine monitoring Creatinine monitoring [place], [place] Start: 04-21-2020 Potassium monitoring Potassium monitoring [place] Start: 04-21-2020 End: 04-21-2020 Office Visit 04/21/2020 Office Visit Family Medicine Medardo Robles MD [address] [place] [address] [facility] Start: 03-18-2020 Pneumococcal 65+ years Vaccine (1 of 1 - PPSV23) Pneumococcal 65+ years Vaccine (1 of 1 - PPSV23) [place] Comment on above: Postponed from 2013 (Patient Refus ed) Start: 01-20-2020 Influenza vaccination Flu vaccine (#1) [place] Start: 01-10-2020 Annual Wellness Visit (AWV) Annual Wellness Visit (AWV) [place] Start: 09-17-2019 End: 09-17-2019 Office Visit 09/17/2019 Office Visit Family Medicine Medardo Robles MD [address] [place], [place] [phone] [facility] Start: 04-28-2019 End: 04-28-2019 Office Visit 04/28/2019 Office Visit Cardiology Kyle Cabrera MD [address] [place] [address] [phone] [facility] Weight [facility] Start: 03-29-2019 Creatinine monitoring Creatinine monitoring [place] Start: 03-29-2019 Potassium monitoring Potassium [place] Start: 01-19-2019 Influenza vaccination Flu vaccine (#1) [place] Start: 2013 Fall risk assessment Falls Risk Assessment [facility] Start: 2013 Pneumococcal Vaccine: Age 65+ (1 - PCV) Pneumococcal Vaccine: Age 65+ (1 - PCV) [facility] Start: 1998 Administration of herpes zoster vaccine Zoster Vaccines (1 of 2) [facility] Start: 1998 Screening for malignant neoplasm of colon Flexible sigmoidoscopy [facility] Start: 1998 Shingles Vaccine (1 of 2) Shingles Vaccine (1 of 2) [place] Start: 1993 Screening for malignant neoplasm of colon [facility] Start: 1988 Diabetes screen Diabetes screen [place] Start: 1988 Screening for malignant neoplasm of breast Mammogram [facility] Start: 12-12-1967 DTaP/Tdap/Td vaccine (1 - Tdap) DTaP/Tdap/Td vaccine (1 - Tdap) [facility] Start: 1966 [facility] Start: 1960 Depression screening using PHQ-9 (Patient Health Questionnaire 9) score Depression Screening (PHQ-2/9) [facility] Start: 12-12-1959 DTaP/Tdap/Td vaccine (1 - Tdap) DTaP/Tdap/Td vaccine (1 - Tdap) [place] Start: 1958 HbA1c (Bld) [Mass fraction] A1C test (Diabetic or Prediabetic) [place] Start: 12-12-1951 History and physical examination, annual for health maintenance Wellness Visit [facility] Start: 06-13-1949 COVID-19 Vaccine (#1) COVID-19 Vaccine (#1) [facility] Start: 07-24-1949 Hepatitis C screen Hepatitis C screen [place] Start: 1948 Hepatitis C screening Hepatitis C screen [facility] Start: 1948 Screening for malignant neoplasm of colon [facility] Start: 1948 Screening for osteoporosis Dexa Scan [facility] Start: 1948 Tetanus vaccination Tetanus: Every 10yrs [facility] 12 lead ECG ECG 12 Lead ECG Routine Atrial fibrillation, unspecified type (HCC) 09/07/2023 8:45 AM EDT [facility] End: 08-29-2023 Basic metabolic 2000 panel - Serum or Plasma Basic metabolic panel Lab Routine Atrial fibrillation, unspecified type (HCC) 1 Occurrences starting 08/28/2022 until 08/29/2023 [facility] Work Phone: Comment on above: 1 Occurrences starting 08/28/2022 until 08/29/2023 End: 02-29-2024 Basic metabolic 2000 panel - Serum or Plasma Basic metabolic panel Lab Routine Atrial fibrillation, chronic (HCC) 1 Occurrences starting 02/28/2023 until 02/29/2024 [facility] Comment on above: 1 Occurrences starting 02/28/2023 until 02/29/2024 End: 07-22-2024 Basic metabolic 2000 panel - Serum or Plasma Basic metabolic panel Lab Routine Atrial fibrillation, unspecified type (HCC) 1 Occurrences starting 09/07/2023 until 07/22/2024 [facility] Comment on above: 1 Occurrences starting 09/07/2023 until 07/22/2024 Basic metabolic 2000 panel - Serum or Plasma Basic metabolic panel Lab Routine Atrial fibrillation, unspecified type (HCC) 09/07/2023 9:08 AM EDT [facility] End: 02-29-2024 Complete blood count with white cell differential, manual CBC and differential Lab Routine Atrial fibrillation, chronic (HCC) 1 Occurrences starting 02/28/2023 until 02/29/2024 [facility] Work Phone: Comment on above: 1 Occurrences starting 02/28/2023 until 02/29/2024 End: 07-22-2024 Complete blood count with white cell differential, manual CBC and differential Lab Routine Atrial fibrillation, unspecified type (HCC) 1 Occurrences starting 09/07/2023 until 07/22/2024 [facility] Work Phone: Comment on above: 1 Occurrences starting 09/07/2023 until 07/22/2024 Complete blood count with white cell differential, manual CBC and differential Lab Routine Atrial fibrillation, unspecified type (HCC) 09/07/2023 9:08 AM EDT [facility] End: 08-29-2023 CT Pulmonary Vein With Reconstructions 3D CT Pulmonary Vein With Reconstructions 3D Imaging Routine Atrial fibrillation, unspecified type (HCC) 1 Occurrences starting 08/28/2022 until 08/29/2023 [facility] Comment on above: 1 Occurrences starting 08/28/2022 until 08/29/2023 End: 03-08-2020 Culture, Urine Culture, Urine Microbiology Routine Complicated UTI (urinary tract infection) 1 Occurrences starting 03/08/2020 until 03/08/2020 [place] Comment on above: 1 Occurrences starting 03/08/2020 until 03/08/2020 Culture, Urine [place], [place] End: 02-28-2021 Culture, Urine Culture, Urine Microbiology Routine Dysuria 1 Occurrences starting 02/28/2021 until 02/28/2021 [facility] Work Phone: Comment on above: 1 Occurrences starting 02/28/2021 until 02/28/2021 End: 08-24-2021 Culture, Urine [facility] Phone: Comment on above: 1 Occurrences starting 08/24/2021 until 08/24/2021 End: 11-03-2022 Culture, Urine [facility] Comment on above: 1 Occurrences starting 11/03/2022 until 11/03/2022 End: 10-29-2023 Echocardiography Echocardiogram complete Echocardiography Routine Atrial fibrillation, unspecified type (HCC) Atrial fibrillation, chronic (HCC) 1 Occurrences starting 08/28/2022 until 10/29/2023 [facility] Work Phone: Comment on above: 1 Occurrences starting 08/28/2022 until 10/29/2023 EKG 12 Lead [facility] LEFT ATRIAL APPENDAG E LIGATION LEFT ATRIAL APPENDAGE LIGATION atrial fibrillation [facility] End: 03-06-2022 JAMES KRISSY DIGITAL SCREEN BILATERAL [facility] Work Phone: Comment on above: 1 Occurrences starting 03/06/2022 until 03/06/2022 Immunizations Immunization Date Immunization Notes Care Provider Wesley chavez 06-30-2022 tetanus toxoid, redu fareed diphtheria toxoid, and acellular pertussis vaccine, adsorbed Rachel FLORES [facility] 02-16-2022 influenza virus vaccine, unspecified formulation Rachel FLORES [facility] 02-16-2022 Influenza, FLUAD, (a ge 65 y+), Adjuvanted, 0.5mL Medardo Robles MD Work Phone: [facility] 02-16-2022 SARS-CoV-2 (COVID-19 ) [id number] Rachel SANDRA [facility] 01-09-2022 Pneumococcal, PCV20, PREVNAR 20, (age 18y+), IM, 0.5mL Medardo Robles MD Work Phone: [facility] 04-29-2021 zoster vaccine recombinant [facility] Room [facility] Work Phone: 04-19-2021 COVID-19, Moderna, Primary or Immunocompromised, PF, 100mcg/0.5mL Medardo Robles MD Work Phone: [facility] 04-18-2021 COVID-19, MODERNA BL UE border, Primary or Immunocompromised, (age 12y+), IM, 100 mcg/0.5mL [facility] Room [facility] Work Phone: 02-07-2021 zoster vaccine recombinant Medardo Robles MD Work Phone: [facility] Work Phone: 08-23-2020 COVID-19, Moderna, P F, 100mcg/0.5mL Medardo Robles MD Work Phone: [employer] Work Phone: 07-26-2020 COVID-19, Moderna, P F, 100mcg/0.5mL Medardo Robles MD Work Phone: [facility] Work Phone: 05-21-2020 SARS-CoV-2 (COVID-19 ) mRNA BNT-162b2 vax Rachel FLORES [facility] 02-18-2020 pneumococcal polysaccharide vaccine, 23 valent [facility] NEGATED: Highlighted row has not occurred!05-19-2019 influenza virus vaccine, live, attenuated, for intranasal use Rachel FLORES [facility] Payers Date Payer Category Payer Unknown AARP AARP [employer] [id number] 2022-Present [phone] [address] [place] [address] [id number] 2014 Medicare xxxxxxxxxxx [id number] 2013 Medicare MEDICARE MEDICAR E PART A & B [id number] 2013-Present [phone] CGS [id number] [place] [place] [address] [id number] 1959 Medicare [id number] 1959 Private Health Insurance [id number] .[id number] 1948 Unknown [id number] 2.16.840.1.399083.3.579.2 .593 1948 Unknown [id number] 2.16.840.1.662393.3.579.2 .593 1948 Unknown [id number] 2.16.840.1.796788.3.579.2 .903 1948 Unknown [id number] 2.16840.1.929743.3.579.2 .90 1948 Unknown [id number] 2.16840.1.611969.3.579.2 .90 1948 Unknown [id number] 2.16840.1.552379.3.579.2 .90 1948 Unknown [id number] 2.16840.1.846360.3.579.2 .90 1948 Unknown [id number] 2.16840.1.639093.3.579.2 .1948 Unknown [id number] 2.16840.1.211865.3.579.2 .90 1948 Unknown [id number] 2.16840.1.668768.3.579.2 .90 1948 Unknown [id number] 2.16840.1.378829.3.579.2 .90 1948 Unknown [id number] 2.16840.1.999184.3.579.2 .90 1948 Unknown [id number] 2.16840.1.945991.3.579.2 .174 1948 Unknown [id number] 2.16840.1.724879.3.579.2 .174 1948 Unknown [id number] 2.16.840.1.909696.3.579.2 .174 1948 Unknown [id number] 2.16840.1.588652.3.579.2 .174 1948 Unknown [id number] 2.16.840.1.010273.3.579.2 .174 1948 Unknown [id number] 2.16.840.1.667904.3.579.2 .174 1948 Unknown [id number] 2.16.840.1.648886.3.579.2 .174 1948 Unknown [id number] 2.16.840.1.192038.3.579.2 .727 1948 Unknown [id number] 2.16.840.1.678299.3.579.2 .727 1948 Unknown [id number] 2.16.840.1.319455.3.579.2 .727 Social History Date Type Detail Facility Start: 03-18-2019 End: 11-16-2023 Tobacco smoking status NHIS Never smoker [place] Start: 03-18-2019 End: 11-03-2022 Alcohol intake Current non-drinker of alcohol (finding) [place] Start: 1950 Sex Assigned At Not on file [place] Start: 03-08-2020 End: 08-22-2022 Tobacco use and exposure Never used [place] Start: 10-20-2020 End: 10-25-2022 History SDOH Financial 4 [facility] Phone: Start: 10-20-2020 End: 10-25-2022 History SDOH Food Worry 1 [facility] Phone: Start: 10-24-2021 History SDOH Financial 5 [facility] Phone: Tobacco smoking stat us [facility] Tobacco smoking consumption unknown [facility] Start: 08-22-2022 End: 03-20-2023 Gender identity Not on file [facility] Start: 08-22-2022 End: 09-07-2023 Alcohol intake Lifetime non-drinker (finding) [facility] Start: 08-22-2022 Gender identity Identifies as female gender (finding) [facility] Start: 08-22-2022 Sexual orientation Heterosexual (finding) [facility] Start: 08-12-2022 End: 09-05-2022 Exposure to SARS-CoV-2 (event) Not sure [facility] Start: 08-22-2022 End: 03-20-2023 History of Social function [facility] Start: 04-26-2022 History SDOH Alcohol Std Drinks 0 [facility] Start: 10-25-2022 History SDOH [facility] 2 [facility] [employer] Tobacco smoking status Never [facility] Medical Equipment Procedure Code Equipment Code Equipment Origin al Text Equipment Identifier Dates Device 27mm Watchman Flex - [id number] Start: 09-14-2022 Comment on above: Description: MARION Closure Perclose Prostyle - [id number] FDA Start: 09-14-2022 Comment on above: Description: Femoral System Watchman Flex Procedure Charge - [id number] Start: 09-14-2022 Functional Status Date Assessment Result Facility 11-16-2023 Functional Status N/A [facility] 11-17-2022 Functional Status N/A [facility] Clinical Notes 08-16-2022 to 12-24-2023 Ximena Archuleta CNP - 09/07/2023 8:52 AM Mary Louie [place] - 09/07/2023 8:24 AM EDTPatient Ximena Rios CNP - 03/20/2023 9:39 AM EDTPatient Instructions Note Date & Type Note Facility 12-24-2023 Evaluation + Plan note Diagnostic Tests PendingUrine Culture 12/24/23 [facility] 11-16-2023 Hospital Discharge instructions Patient Education 11/16/2023 [...] include: ?8 oz (237 mL) of milk, dfkkjhc-gdugftrpwtlm-zlatb milk, and calcium-fortifiedfruit juice. Calcium-fortified means that [...] ?Spinach (cooked), rhubarb, beets, sweet potatoes, and Wallisian chard. ?Peanuts. ?Potato chips, japanese fries, and baked potatoes with skin on. ?Nuts and nut products. ?Chocolate. If you regularly take a diuretic medicine, make sure to eat at least 1 or 2 servings of fruits or vegetables that are high in potassium each day. These include: ?Avocado. ?Banana. ?[place], prune, carrot, or tomato juice. ?Baked potato. [...] magnesium, fish oil, or vitamin B6. Take srzk-udr-kdubpfm and prescription medicines only as told by [...] Casseroles. Pizza. Lasagna. Frozen meals. Potato chips. Zimbabwean fries. The items listed above may not [...] provider. Document Revised: 08/17/2022 Document Reviewed: 08/17/2022 [employer] Patient Education 2022 [employer]. Follow Up Care 11/17/2022 10:51:02 With:SANDRA SAMSON, SANTIAGO Sands Address: [address] [place] [address] [place] [address]- When: Unknown [facility] 11-16-2023 Note Patient Education Nephrology Dietary Guidelines [...] ? 8 oz (237 mL) of milk, tlvnfba-jbwpqgzgcchf-lkrfz milk, and calcium-fortifiedfruit juice. Calcium-fortified means that [...] Spinach (cooked), rhubarb, beets, sweet potatoes, and Wallisian chard. ? Peanuts. ? Potato chips, japanese fries, and baked potatoes with skin on. ? Nuts and nut products. ? Chocolate. ? If you regularly take a diuretic medicine, make sure to eat at least 1 or 2 servings of fruits or vegetables that are high in potassium each day. These include: ? Avocado. ? Banana. ? [place], prune, carrot, or tomato juice. ? Baked [...] fish oil, or vitamin B6. ? Take fpmc-wct-gtbpiro and prescription medicines only as told by your health care provider. These include suppleme (more content not included)... [facility] 09-07-2023 History of Present illness Narrative Structural Heart Clinic Visit [facility], Heart [facility] Vascular 09/07/2023 Ximena Archuleta, ZIPPER REPAIRER [address] [facility] Medical Office [facility] [address] Patient: Sapna Breen Date of : 1950 (72 y.o.) Referring Provider: No ref. provider found PCP: Medardo Robles MD Chief Complaint: Follow-up (1 year LAAO -no complaints ) Date of Service: 09/07/2023 Assessment and Plan: Atrial fibrillation/status post LAAO Watchman FLX Status post LAAO with Watchman FLX 09/14/2022 with a left atrial appendage occluder 27 mm device mucking machine operator Dr. Angulo. Has been compliant with monotherapy with aspirin. Coronary CT MARION imaging 03/15/2023 showed a well-seated and complete occlusion of the left atrial appendage. No thrombus noticed on device no leak. 12-lead EKG Sinus bradycardia low voltage in precordial leads, old anterior infarct Follows with Dr. Cabrera for her primary cardiology needs. Overall patient [...] implantation 3. Continue to follow with Dr. Cabrera for her primary cardiology needs. It has been a pleasure caring for this patient. Please don't hesitate to reach out to my office directly with any questions or concerns. Follow-up: Return in about 1 year (around 09/06/2024). Ximena Archuleta, MSN, CUSTOM FEED MILL OPERATOR HELPER, ZIPPER REPAIRER [facility] P:[phone] F:[phone] History of Present Illness: Sapna Breen is a 72 y.o. woman with a past medical history of paroxysmal atrial fibrillation with a CHADS VASc score of 3, HAS-BLED 3 with previous history of hematuria who was referred to the structural heart clinic by Dr. Cabrera for consideration of left atrial appendage closure with WATCHMAN device. Presented for elective LAAO on 09/14/22 On 09/14/22 patient underwent successful transcatheter left atrial appendage closure with a WATCHMAN FLX left atrial appendage occluder 27 mm device. The device was deployed without complications. No leak was identified around the device. No pericardial effusion was noted. No increased bleeding from the access site. seed cleaner operator was Dr. Angulo with co-soft work cigar machine operator Dr. Mariscal DELMAR physician, Dr. Antonio. She is here for a 1-year post LAAO Watchman follow-up. Primary combustion engineer is Dr. Cabrera. Objective Review of Systems: All systems were reviewed and noted to be negative unless otherwise stated in HPI. Past Medical History: Diagnosis Date A-fib (HCC) Hyperlipidemia Hypertension Kidney stone Past Surgical History: Procedure Laterality Date BREAST SURGERY SECTION EP - INTERVENTION N/A 09/14/2022 Procedure: Left Atrial Appendage Closure; Surgeon: Pollo Angulo MD; Location: [facility] BUSINESS PROCESS MODEL[facility]; Service: Cardiovascular History reviewed. No pertinent family [...] TOTAL (0-100): __100___ documented in this encounter [facility] 08-27-2023 Instructions Familia Roman RN - 08/27/2023 10:15 AM EDT How to contact your team Provider Pollo Angulo MD Nurse Familia Roman RN [phone] In case of an emergency please call 911 Refills When in need of a refill, please call your care team, or the office at [phone] Please include medication name, pharmacy name, and specify 30 or 90 day supply. Please check with your pharmacy within 24 hours of request for your refill. You must follow up as directed to continue current refills. Thank you documented in this encounter [facility] 03-20-2023 History of Present illness Narrative Structural Heart Clinic Visit [facility] Heart [facility]ascular 03/20/2023 Ximena Archuleta, ZIPPER REPAIRER [address] [facility] Medical Office [facility] [address] Patient: Sapna Breen Date of : 1950 (72 y.o.) Referring Provider: No ref. 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 Angulo. Has been compliant with [...] needed based upon results. Follows with Dr. Cabrera for her primary cardiology needs. Overall patient [...] implantation 3. Continue to follow with Dr. Cabrera for her primary cardiology needs. It has been a pleasure caring for this patient. Please don't hesitate to reach out to my office directly with any questions or concerns. Follow-up: Return in about 6 months (around 09/18/2023). Ximena Archuleta, MSN, CUSTOM FEED MILL OPERATOR HELPER, ZIPPER REPAIRER [facility] P:[phone] F:[phone] History of Present Illness: Sapna Breen is a 72 y.o. woman with a past medical history of paroxysmal atrial fibrillation with a CHADS VASc score of 3, HAS-BLED 3 with previous history of hematuria who was referred to the structural heart clinic by Dr. Cabrera for consideration of left atrial appendage closure with WATCHMAN device. Presented for elective LAAO on 09/14/22 On 09/14/22 patient underwent successful transcatheter left atrial appendage closure with a WATCHMAN FLX left atrial appendage occluder 27 mm device. The device was deployed without complications. No leak was identified around the device. No pericardial effusion was noted. No increased bleeding from the access site. seed cleaner operator was Dr. Angulo with co-soft work cigar machine operator Dr. Mariscal DELMAR physician, Dr. Antonio. She is here for a 6-month post LAAO Watchman follow-up. Primary combustion engineer is Dr. Cabrera. Objective Review of Systems: All systems were reviewed and noted to be negative unless otherwise stated in HPI. Past Medical History: Diagnosis Date A-fib (HCC) Hyperlipidemia Hypertension Kidney stone Past Surgical History: Procedure Laterality Date BREAST SURGERY SECTION EP - INTERVENTION N/A 09/14/2022 Procedure: Left Atrial Appendage Closure; Surgeon: Pollo Angulo MD; Location: [facility] BUSINESS PROCESS [facility]DEL[facility]; Service: Cardiovascular History reviewed. No pertinent family [...] of allergies, medications, Yung Index, and Modified [place] Scale has been completed. ____ will be meeting with . The patient has been provided with an educational folder including a [employer] booklet regarding understanding Afib, left atrial appendage, [...] TOTAL (0-100): ___100___ documented in this encounter [facility] 03-20-2023 Instructions Jack Escobar RN - 03/20/2023 9:21 AM EDT ..How to contact your Care Team: Provider: Pollo Angulo MD Nurse: Jack Escobar RN In case of an emergency please call 911. REFILLS: When in need for refills please call your care team or the office at [phone]. Please include medication name, pharmacy name, and specify 30-day or 90-day supply. Please check with your pharmacy within 24 hours of request for your refill. You must follow up as directed to continue current refills. Thank you documented in this encounter [facility] 03-02-2023 History of Present illness Narrative Returned call to pt regarding VM received requesting call back. Sapna states she has a CT scan scheduled 03/15 and wanted to make sure lab orders were in for pre-scan blood work needed. Informed Sapna orders are already in for labs needed prior to the scan and she can go to any [facility] lab to have drawn prior to the . Verbalizes understanding and thankful for call. documented in this encounter [facility] 11-17-2022 Hospital Discharge instructions Patient Education 11/17/2022 10:40:30 Kidney Stones, Uqns-jz-Dcxk Kidney Stones Kidney stones are rock-like masses [...] Follow these instructions at home: Medicines Take dvzo-clm-nuqfjwg and prescription medicines only as told by [...] provider. Document Revised: 01/09/2022 Document Reviewed: 01/09/2022 [employer] Patient Education 2022 [employer]. Follow Up Care 08/23/2022 12:57:26 With:SANDRA SAMSON, Rachel Peña, URL Address: [address] [place], [place] [id number]- When:Within 1 Year(s) Comments:[employer] [facility] 11-06-2022 History of Present illness Narrative Structural Cardiology Returning Patient Clinic Visit [facility], Heart [facility] Vascular 11/06/2022 Ximena Archuleta, ZIPPER REPAIRER [address] [facility] Medical Office [facility] [address] [facility], physician's office 11/06/2022 Patient: Sapna Breen Date of : 1950 (71 y.o.) Referring Provider: No ref. provider found PCP: Medardo Robles MD Chief Complaint: Follow-up (Patient has no new cardiac concerns today ) Date of Service: 11/06/2022 Assessment and Plan: Atrial fibrillation Status post LAAO with watchman 09/14/2022 with a left atrial appendage occluder 27 mm device mucking machine operator Dr. Adele Hernandez She has been [...] any issue. She does follow with primary combustion engineer, Dr. Cabrera. Plan: 1. She will continue her dual [...] No follow-ups on file. Ximena Archuleta, MSN, CUSTOM FEED MILL OPERATOR HELPER, ZIPPER REPAIRER [facility] P:[phone] F:[phone] History of Present Illness: Sapna Breen is a 71 y.o. woman with a past medical history of paroxysmal atrial fibrillation with a CHADS VASc score of 3, HAS-BLED 3 with previous history of hematuria who was referred to the structural heart clinic by Dr. Cabrera for consideration of left atrial appendage closure with WATCHMAN device. Presented for elective LAAO on 09/14/22 On 09/14/22 patient underwent successful transcatheter left atrial appendage closure with a WATCHMAN FLX left atrial appendage occluder 27 mm device. The device was deployed without complications. No leak was identified around the device. No pericardial effusion was noted. No increased bleeding from the access site. seed cleaner operator was Dr. Angulo with co-soft work cigar machine operator Dr. Mariscal DELMAR physician, Dr. Antonio [...] Appendage Closure; Surgeon: Pollo Angulo MD; Location: [facility] BUSINESS PROCESS [facility]DEL[facility]; Service: Cardiovascular History reviewed. No pertinent family [...] TOTAL (0-100): __100____ documented in this encounter [facility] 10-26-2022 Instructions Jack Escobar RN - 10/26/2022 1:36 PM EDT ..How to contact your Care Team: Provider: Pollo Angulo MD Nurse: Jack Escobar, CHRISTI In case of an emergency please call 911. REFILLS: When in need for refills please call your care team or the office at [phone]. Please include medication name, pharmacy name, and specify 30-day or 90-day supply. Please check with your pharmacy within 24 hours of request for your refill. You must follow up as directed to continue current refills. Thank you Post LAAO CT You are scheduled for a post LAAO CT scan, on ____03/15 at [facility]. Please arrive at the Short Term Care Unit at 845a . Your physician requires blood work prior to your scan, we will place an order for the blood work that may be performed at the [facility] lab of your choice within 1-2 weeks [...] are properly hydrated. documented in this encounter [facility] 09-15-2022 Hospital course Narrative DISCHARGE SUMMARY Patient: Sapna Breen Account: [id number] Admitted: 09/14/2022 Discharge Date/Time: 09/15/2022 Clinical Summary Hospital Course: Sapna Breen is a 71 y.o. female patient with a history of paroxysmal atrial fibrillation with a CHADS VASc score of 3, HAS-BLED 3 with previous history of hematuria who was referred to the structural heart clinic by Dr. Cabrera for consideration of left atrial appendage closure with WATCHMAN device. Presented for elective LAAO on 09/14/22 On 09/14/22 patient underwent successful transcatheter left atrial appendage closure with a WATCHMAN FLX left atrial appendage occluder 27 mm device. The device was deployed without complications. No leak was identified around the device. No pericardial effusion was noted. No increased bleeding from the access site. seed cleaner operator was Dr. Angulo with co-soft work cigar machine operator Dr. Mariscal DELMAR physician, Dr. Antonio [...] Your Medications These medications were sent to [id number] - [place], [place] - [address] [facility] [address] clopidogreL 75 mg tablet Physician(s) Family: Medardo Robles MD, , Address: [address] [place] [address] / [facility] [address] Follow Up: Kathya Archuleta CNP 11/06/22 10:30 a.m. Patient instructions, including activity, were given to the patient/family at discharge. Please see the After Visit Summary in the medical record for details. Time spent on discharge: < 30 minutes Completed by: Mandie Zayas on 09/15/22, 9:35 AM documented in this encounter [facility] 09-14-2022 Note Formatting of this n ote might be different from the original. Problem: Actual or potential alteration in health Goal: Absence of healthcare acquired conditions Outcome: Partially Met Goal: Knowledge of Interdisciplinary Plan of Care Outcome: Partially Met Goal: Knowledge of Enviroment Outcome: Partially Met [facility] 09-14-2022 Miscellaneous Notes Problem: Actual or potential [...] Outcome: Partially Met documented in this encounter [facility] 09-14-2022 Note Formatting of this n ote might be different from the original. Problem: Actual or potential alteration in health Goal: Absence of healthcare acquired conditions Outcome: Partially Met Goal: Knowledge of Interdisciplinary Plan of Care Outcome: Partially Met Goal: Knowledge of Enviroment Outcome: Partially Met [facility] 09-14-2022 Note CARDIAC CATHETERIZAT ION Date of Procedure: 09/14/22 Manager Operations and Supervising Physician: Pollo Angulo MD Stopper Grinder: Austin Mariscal MD Name of Procedures: Percutaneous transcatheter closure of the left atrial appendage with Watchman FLX left atrial appendage occluder 27 mm device (CPT Code 93671, ICD 10 procedure code [id number]) for the treatment of a patient with unspecified (I40.9) atrial fibrillation. (DRG code 273 or 274) Medications: General anesthesia provided by Dr. Paolo Cannon MD Indication for Procedure: A 71 y.o. female with history of atrial fibrillation. 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 Faustino Yi MD to discuss non-interventional, pharmacologic options to stroke prevention. No qualified Resident was available to assist in the case therefore due to the complexity,Austin Mraiscal MD was utilized as my educational program assistant Description of Procedure: Following informed consent, [...] exchanged out the Proglide sheath for a Maize sheath with a transseptal needle. Under fluoroscopic and echocardiographic images, the Danielito versacross transseptal needle was used to perform transseptal puncture across the inter-atrial septum. The Maize sheath was advanced into the left atrium and the dilator to dilate the septum and then removed from the body. Heparin was then administered for full anticoagulation with intermittent monitoring of ACT. The Maize sheath was exchanged out for a 14-Zimbabwean Atrite Watchman sheath, which was placed in the left atrium. A 6-Zimbabwean pigtail catheter was advanced into the sheath and the stiff wire was then removed. Under fluoroscopic and echocardiographic guidance, the pigtail catheter was then placed selectively in the left atrial appendage and multiple angiographic images were obtained. We then advanced the 14-Zimbabwean Atrite sheath into the left atrial appendage [...] of leak, the device was released. The 14-Zimbabwean sheath was removed and hemostasis was achieved [...] left atrial appendage occluder 27 mm; LOT# [id number] Summary: The following findings were noted on [...] and interpretation verified by Pollo Angulo MD [facility] 09-14-2022 Note CARDIAC CATHETERIZAT ION Date of Procedure: 09/14/22 Manager Operations and Supervising Physician: Pollo Angulo MD Stopper Grinder: Austin Mariscal MD Name of Procedures: Percutaneous transcatheter closure of the left atrial appendage with Watchman FLX left atrial appendage occluder 27 mm device (CPT Code 06637, ICD 10 procedure code [id number]) for the treatment of a patient with unspecified (I40.9) atrial fibrillation. (DRG code 273 or 274) Medications: General anesthesia provided by Dr. Paolo Cannon MD Indication for Procedure: A 71 y.o. female with history of atrial fibrillation. 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 Faustino Yi MD to discuss non-interventional, pharmacologic options to stroke prevention. No qualified Resident was available to assist in the case therefore due to the complexity,Austin Mariscal MD was utilized as my educational program assistant Description of Procedure: Following informed consent, [...] exchanged out the Proglide sheath for a Maize sheath with a transseptal needle. Under fluoroscopic and echocardiographic images, the Danielito versacross transseptal needle was used to perform transseptal puncture across the inter-atrial septum. The Maize sheath was advanced into the left atrium and the dilator to dilate the septum and then removed from the body. Heparin was then administered for full anticoagulation with intermittent monitoring of ACT. The Maize sheath was exchanged out for a 14-Zimbabwean Atrite Watchman sheath, which was placed in the left atrium. A 6-Zimbabwean pigtail catheter was advanced into the sheath and the stiff wire was then removed. Under fluoroscopic and echocardiographic guidance, the pigtail catheter was then placed selectively in the left atrial appendage and multiple angiographic images were obtained. We then advanced the 14-Zimbabwean Atrite sheath into the left atrial appendage [...] of leak, the device was released. The 14-Zimbabwean sheath was removed and hemostasis was achieved [...] left atrial appendage occluder 27 mm; LOT# [id number] Summary: The following findings were noted on [...] and interpretation verified by Pollo Angulo MD [facility] 09-14-2022 History of Present illness Narrative [...] TOTAL (0-100): __100____ documented in this encounter [facility] 09-14-2022 Attending History and physical note INTERVAL HISTORY AND PHYSICAL Patient Name: Sapna Breen Admit Date: [id number] MR #: [id number] : 1950 The H&P has been reviewed [...] acute renal insufficiency, need for emergency surgery, RI, stroke, or cardiac arrest/. Patient voiced understanding and agreed to proceed. Pollo Angulo MD 09/14/2022 10:09 AM Source Note - Pollo Angulo MD - 08/22/2022 8:14 AM EDT Structural Heart Disease Clinic Consult Heart & Vascular [facility] 08/22/2022 Pollo Angulo MD [address] [place] [phone] Patient: Sapna Breen Date of : [...] rate is well controlled on beta-brice. Her LGR4TE5-KEQy score is 3 giving an annual stroke [...] limited to risk of bleeding infection stroke RI or need for emergent open heart surgery. [...] no past medical history of any CAD RI stroke diabetes or known peripheral arterial disease Non-smoker lifelong Family history of CAD in her brother who had RI and mother had some heart disease that [...] found for: CHOL, LDLCALC, LDLDIRECT, TRIG, HDL [facility] 09-14-2022 History and physical note INTERVAL HISTORY AND PHYSICAL Patient Name: Sapna Breen Admit Date: [id number] MR #: [id number] : 1950 The H&P has been reviewed [...] acute renal insufficiency, need for emergency surgery, RI, stroke, or cardiac arrest/. Patient voiced understanding and agreed to proceed. Pollo Angulo MD 09/14/2022 10:09 AM Source Note - Pollo Angulo MD - 08/22/2022 8:14 AM EDT Structural Heart Disease Clinic Consult Heart & Vascular [facility] 08/22/2022 Pollo Angulo MD [address] [place] [phone] Patient: Sapna Breen Date of : [...] rate is well controlled on beta-brice. Her LIU9QU5-QIEo score is 3 giving an annual stroke [...] limited to risk of bleeding infection stroke RI or need for emergent open heart surgery. [...] no past medical history of any CAD RI stroke diabetes or known peripheral arterial disease Non-smoker lifelong Family history of CAD in her brother who had RI and mother had some heart disease that she is unsure of Objective Imaging: I independently reviewed the EKG and agree with the interpretation(s) with the following comments. NSR ECG 12 lead Final Result by Arron Vizcarra MA (08/22/2022 [id number]) Past Medical History: Diagnosis Date A-fib (HCC) [...] LDLDIRECT, TRIG, HDL documented in this encounter [facility] 09-14-2022 Hospital Discharge instructions Jack Escobar RN - 09/14/2022 8:52 AM EDT [facility] Hospital Discharge Instructions Your 45 day follow up clinic appointment with cardiology nurse practitioner Jeny Archuleta is scheduled for 11/06/22 at 1030am at the [facility], [address] [place] [address] Heart and Vascular Clinic. Please arrive 15 minutes prior to your appointment time. Your 6 month post procedure office visit with cardiology nurse practitioner Jeny Archuleta has been scheduled for 03/20/23 at 930am at the [address] Heart and Vascular Clinic. Please arrive 15 minutes prior to your appointment time. Your [address] scan has been scheduled for 03/15/23. Please arrive at the [facility] at 845am. Post LAAO CT Instructions: Your physician requires blood work prior to your scan, we will place an order for the blood work that may be performed at the [facility] lab of your choice within 1-2 weeks [...] call, please call in for an update. ([phone]) Around 45 days: You will have a [...] after office hours or weekends, please call [phone] and ask for the combustion engineer nurse practitioner per diem for assistance. During the week days, you may call CHRISTI Santiago at the office at [phone]. documented in this encounter [facility] 09-08-2022 History of Present illness Narrative Pt called to review procedure with Dr. Adele PATTERSON with watchman device scheduled next week 09/14. All information listed below reviewed. Verbalizes understanding and denies any further questions. Thankful for call. Please complete required pre-procedure blood work on 09/11 or 09/12 at the [facility] building main floor lab. No fasting is required for this blood work. 3-MARION Closure PRE-PROCEDURE INSTRUCTIONS Date: ____09/14 Check-In Time: 9am The check in time is the time that you need to be at the hospital. This time allows adequate preparation time prior to your procedure. It is not the time of the procedure. LOCATION: [facility]. Please park in the garage next to the medical office building. If needed, golf course superintendent parking is available at the front entrance [...] by your nurse. documented in this encounter [facility] 08-28-2022 History of Present illness Narrative Pt called to review LAAO procedure information listed below. Verbalizes understanding and denies any further questions. 1-Your echocardiogram is scheduled for 09/05 at 2pm at the [facility], 3rd floor heart and vascular clinic. 2-Pre-CT You are scheduled for a pre-CT scan, on 09/05 at [facility]. Please arrive at the Short Term [...] pre-procedure blood work on 09/05 at the [facility] main floor lab. No fasting is required for this blood work. 3-MARION Closure PRE-PROCEDURE INSTRUCTIONS Date: Check-In Time: 9am The check in time is the time that you need to be at the hospital. This time allows adequate preparation time prior to your procedure. It is not the time of the procedure. LOCATION: [facility]. Please park in the garage next to the medical office building. If needed, golf course superintendent parking is available at the front entrance [...] after the procedure. documented in this encounter [facility] 08-25-2022 History of Present illness Narrative [facility] [...] thankful for call. documented in this encounter [facility] 08-22-2022 History of Present illness Narrative Structural Heart Disease Clinic Consult Heart & Vascular [facility] 08/22/2022 Pollo Angulo MD [address] [place] [address] Medical Office [facility] [id number] Patient: Sapna Breen Date of : [...] rate is well controlled on beta-brice. Her [id number] score is 3 giving an annual stroke [...] limited to risk of bleeding infection stroke RI or need for emergent open heart surgery. [...] no past medical history of any CAD RI stroke diabetes or known peripheral arterial disease Non-smoker lifelong Family history of CAD in her brother who had RI and mother had some heart disease that [...] LDLDIRECT, TRIG, HDL documented in this encounter [facility] 08-18-2022 Instructions Jack Escobar RN - 08/18/2022 9:07 AM EDT Please complete required pre-procedure blood work on at the [facility] main floor lab. No fasting is required for this blood work. 1-Your echocardiogram is scheduled for at the [facility], 3rd floor heart and vascular clinic. 2-Pre-CT You are scheduled for a pre-CT scan, on at [facility]. Please arrive at the Short Term [...] not the time of the procedure. LOCATION: [facility]. Please park in the garage next to the medical office building. If needed, golf course superintendent parking is available at the front entrance [...] You may reach our nurse line at [phone] for any questions or concerns. Please leave a message and we will return your call within 24 hours, Sunday-Sunday. For billing questions, please contact your insurance and/or our central billing office at [phone]. Thank you for choosing [facility], we look forward to caring for you. documented in this encounter [facility] 08-16-2022 History of Present illness Narrative [facility] referral received from Dr. Yi for LEONARDO morelos. Pt scheduled Tues 4/4 w/ Dr. Angulo Records requested from pt PCP and [facility] (last echo 2015), Urology notes requested and labs. documented in this encounter [facility] Evaluation + Plan note Future Appointments Appointment Date:11/16/2023 09:45:00 AM Scheduled Provider:Rachel FLORES MD Location:[facility] Appointment Type:URO Office Visit Diagnostic Tests PendingElectrolyte Panel 11/17/22 [facility] Evaluation note Diagnosis Dysuria documented in this encounter [facility] Phone: evaluation note* Diagnosis Visit for screening mammogram Other screening mammogram documented in this encounter [facility] Phone: evaluation note* Diagnosis Pain and swelling of toe of left foot documented in this encounter [facility] Phone: evaltucurv note* Diagnosis Dysuria Acute cystitis with hematuria Acute cystitis documented in this encounter [facility] Phone: evaluation note* Diagnosis Visit for screening mammogram Other screening mammogram documented in this encounter [facility] Phone: evaluation note* Diagnosis Atrial fibrillation, unspecified type (HCC)- Primary Essential hypertension Unspecified essential hypertension [facility]* Diagnosis Atrial fibrillation, unspecified type (HCC)- Primary Atrial fibrillation, chronic (HCC) [facility] Diagnosis Atrial fibrillation, unspecified type (HCC)- Primary [facility] Diagnosis Pre-op testing- Primary Unspecified pre-operative examination Atrial fibrillation, chronic (HCC) documented in this encounter [facility] note* Diagnosis Atrial fibrillation, chronic (HCC)- Primary [facility] Diagnosis Presence of Watchman left atrial appendage closure device- Primary PAF (paroxysmal atrial fibrillation) (HCC) Atrial fibrillation [facility] Diagnosis Dysuria documented in this encounter [facility] note* Diagnosis Atrial fibrillation, chronic (HCC)- Primary Presence of Watchman left atrial appendage closure device documented in this encounter [facility] note* Diagnosis Atrial fibrillation, chronic (HCC)- Primary documented in this encounter [facility] note* Diagnosis Atrial fibrillation, unspecified type (HCC)- Primary Presence of Watchman left atrial appendage closure device documented in this encounter [facility] note* Diagnosis Atrial fibrillation, unspecified type (HCC)- Primary documented in this encounter [facility] course Narrative No data available for this section [facility] Hospital Discharge instructions No data available for this section [facility] progress note No data available for this section [facility] reason for visit Narrative* Auth/Cert Specialty Diagnoses / Procedures Referred By Sea palm Referred To Contact Diagnoses atrial fibrillation Procedures Left Atrial Appendage Closure Referral ID Status Reason Start Date Expiration Date Visits Re quested Visits Authorized [id number] 1 1 [facility] Summary Purpose Family History No Family History Records FoundNo Family History Records FoundNo Family History Records FoundNo Family History Records FoundNo Family History Records FoundNo Family History Records Found No data available for this section No data available for this section No data available for this section No Family History Records Found Advance Directives No Advanced Directives Records FoundDocuments on File Type Date Recorded 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 Advance Directives and Living Will Power of Manufacturing Technology Professor Latest Code Status on File Code Status Date Activated Date Inactivated Comments Full Code 06/14/2015 10:10 AM 06/14/2015 1:00 PM Full Code 06/14/2015 8:09 AM 06/14/2015 10:10 AM Full Code 12/10/2012 7:01 AM 12/10/2012 5:08 PM Documents on File Type Date Recorded 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 Advance Directives and Living Will Power of Manufacturing Technology Professor Latest Code Status on File Code Status Date Activated Date Inactivated Comments Full Code 06/14/2015 10:10 AM 06/14/2015 1:00 PM Full Code 06/14/2015 8:09 AM 06/14/2015 10:10 AM Full Code 12/10/2012 7:01 AM 12/10/2012 5:08 PM Documents on File Type Date Recorded 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 ACP-Advance Directive ACP-Power of Manufacturing Technology Professor Documents on File Type Date Recorded 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 ACP-Advance Directive ACP-Power of Manufacturing Technology Professor Healthcare Agents on File Name Relationship Healthcare Agent Relationship Communication Cledith Amburgey Spouse Primary Decision Maker [phone] (Home) Healthcare Agents on File Name Relationship Healthcare Agent Relationship Communication Cledith Amburgey Spouse Primary Decision Maker [phone] (Home) Healthcare Agents on File Name Relationship Healthcare Agent Relationship Communication Cledith Amburgey Spouse Primary Decision Maker [phone] (Home) Healthcare Agents on File Name Relationship Healthcare [...] type (HCC) Procedures EKG 12 Lead Kyle Cabrera MD [address] [place] [phone] Status Reason Specialty Diagnoses / Procedures Re ferred By Contact Referred To Contact Open Cardiology Diagnoses Elevated glucose Essential hypertension Hyperlipidemia, unspecified hyperlipidemia type Vitamin D deficiency disease Atrial fibrillation, unspecified type (HCC) Procedures EKG 12 Lead Kyle Cabrera MD [address] [place] [phone] Status Reason Specialty Diagnoses / Procedures Referre d By Contact Referred To Contact Closed Radiology Diagnoses Visit for screening mammogram Procedures [facility] KRISSY DIGITAL SCREEN BILATERAL Medardo Robles MD [address] [place] [address] Specialty Diagnoses / Procedures Referred By Contac t Referred To Contact Radiology Diagnoses Visit for screening mammogram Procedures [facility] KRISSY DIGITAL SCREEN BILATERAL Medardo Robles MD [address] [place] [address] Referral ID Status Reason Start Date Expiration Date Visits Re quested Visits Authorized [id number] Closed 01/24/2022 01/24/2023 1 1 Specialty Diagnoses / Procedures Referred By Contac t Referred To Contact Cardiology Diagnoses Atrial fibrillation, unspecified type (HCC) Procedures ECG 12 lead Pollo Angulo MD [address] [place] [id number] Referral ID Status Reason Start Date Expiration Date V isits Requested Visits Authorized [id number] Authorized 08/22/2022 08/22/2023 1 1 Specialty Diagnoses / Procedures Referred By Contac t Referred To Contact Radiology Diagnoses Atrial fibrillation, unspecified type (HCC) Procedures CT Pulmonary Vein With Reconstructions 3D Pollo Angulo MD [address] [phone] Referral ID Status Reason Start Date Expiration Date V isits Requested Visits Authorized [id number] Authorized 08/28/2022 08/28/2023 1 1 Specialty Diagnoses / Procedures Referred By Contac t Referred To Contact Cardiology Diagnoses Atrial fibrillation, unspecified type (HCC) Atrial fibrillation, chronic (HCC) Procedures Echocardiogram complete Pollo Angulo MD [address] [phone] Referral ID Status Reason Start Date Expiration Date V isits Requested Visits Authorized [id number] Authorized 08/28/2022 08/28/2023 1 1 Specialty Diagnoses / Procedures Referred By Contac t Referred To Contact Radiology Diagnoses Atrial fibrillation, chronic (HCC) Procedures CT Pulmonary Vein With Reconstructions 3D Pollo Angulo MD [address] [place] [id number] Referral ID Status Reason Start Date Expiration Date V isits Requested Visits Authorized [id number] Pending Review 03/16/2023 03/15/2024 1 1 Specialty Diagnoses / Procedures Referred By Contac t Referred To Contact Cardiology Diagnoses Atrial fibrillation, chronic (HCC) Procedures ECG 12 lead Ximena Archuleta CNP [address] [phone] Referral ID Status Reason Start Date Expiration Date V isits Requested Visits Authorized [id number] Authorized 11/06/2022 11/06/2023 1 1 Specialty Diagnoses / Procedures Referred By Contac t Referred To Contact Cardiology Diagnoses Atrial fibrillation, unspecified type (HCC) Procedures ECG 12 lead Ximena Archuleta CNP [address] [phone] Referral ID Status Reason Start Date Expiration Date V isits Requested Visits Authorized [id number] Authorized 03/20/2023 03/19/2024 1 1 Assessments Diagnosis [...] section and content) DATE CREATED AUTHOR 04/23/2018 [facility] DATE CREATED AUTHOR AUTHOR'S ORGANIZ ATION 07/21/2021 [facility] DATE CREATED AUTHOR AUTHOR'S ORGANIZ ATION 09/03/2022 [facility] DATE CREATED AUTHOR AUTHOR'S ORGANIZ ATION 09/08/2023 [facility] DATE CREATED AUTHOR AUTHOR'S ORGANIZ ATION 09/11/2023 [facility] DATE CREATED AUTHOR AUTHOR'S ORGANIZ ATION 11/10/2023 [facility] DATE CREATED AUTHOR AUTHOR'S ORGANIZ ATION 12/25/2023 [facility] Reason for Visit (unrecogniz ed section and content) Status Reason Specialty Diagnoses / Procedures Referre d By Contact Referred To Contact Closed Radiology Diagnoses Visit for screening mammogram Procedures [facility] KRISSY DIGITAL SCREEN BILATERAL Medardo Robles MD [address] [place] [address] Specialty Diagnoses / Procedures Referred By Sea palm Referred To Contact Radiology Diagnoses Visit for screening mammogram Procedures JAMES KRISSY DIGITAL SCREEN BILATERAL Medardo Robles MD [address] [place] [address] Referral ID Status Reason Start Date Expiration Date Visits Re quested Visits Authorized [id number] Closed 01/24/2022 01/24/2023 1 1 Reason Comments Follow-up Reason Onset Date Comments Medication Refill 08/28/2022 Reason Comments Follow-up Patient has no new c ardiac concerns today Reason Onset Date Comments Medication Refill 11/13/2022 Reason Comments Follow-up 6 mo LAAO f/u pt has no complaints today Reason Comments Follow-up 1 year LAAO -no comp laints Care Teams (unrecognized sec tion and content) Burning Supervisor Relationship Specialty Start Date End Date Medardo Robles MD [address] [place] [address] PCP - General Family Medicine 06/10/13 Burning Supervisor Relationship Specialty Start Date End Date Medardo Robles MD [address] [place] [address] PCP - General Family Medicine 06/10/13 Burning Supervisor Relationship Specialty Start Date End Date Medardo Robles MD [address] [place] [address] PCP - General Family Medicine 06/10/13 Burning Supervisor Relationship Specialty Start Date End Date Medardo Robles MD [address] [place] [address] PCP - General Family Medicine 06/10/13 Burning Supervisor Relationship Specialty Start Date End Date Medardo Robles MD [address] [place] [address] PCP - General Family Medicine 08/15/22 Burning Supervisor Relationship Specialty Start Date End Date Medardo Robles MD [address] [place] [address] PCP - General Family Medicine 08/15/22 Burning Supervisor Relationship Specialty Start Date End Date Verhoff, Medardo L., MD [address] [place] [address] PCP - General Family Medicine 08/15/22 Burning Supervisor Relationship Specialty Start Date End Date Medardo Robles MD [address] [place] [address] PCP - General Family Medicine 08/15/22 Burning Supervisor Relationship Specialty Start Date End Date Medardo Robles MD [address] [place] [address] PCP - General Family Medicine 08/15/22 Burning Supervisor Relationship Specialty Start Date End Date Medardo Robles MD [address] [place] [id number] PCP - General Family Medicine 08/15/22 Burning Supervisor Relationship Specialty Start Date End Date Medardo Robles MD [address] [place] [address] PCP - General Family Medicine 08/15/22 Burning Supervisor Relationship Specialty Start Date End Date Medardo Robles MD [address] [place] [address] PCP - General Family Medicine 08/15/22 Burning Supervisor Relationship Specialty Start Date End Date Medardo Robles MD [address] [place] [address] PCP - General Family Medicine 08/15/22 Burning Supervisor Relationship Specialty Start Date End Date Medardo Robles MD [address] [place] [address] PCP - General Family Medicine 08/15/22 Burning Supervisor Relationship Specialty Start Date End Date Medardo Robles MD [address] [facility] [address] PCP - General Family Medicine 08/15/22 Burning Supervisor Relationship Specialty Start Date End Date Medardo Robles MD [address] [place] [address] PCP - General Family Medicine 06/10/13 Burning Supervisor Relationship Specialty Start Date End Date Medardo Robles MD [address] [address] PCP - General Family Medicine 08/15/22 Burning Supervisor Relationship Specialty Start Date End Date Medardo Robles MD [address] [place] [address] PCP - General Family Medicine 08/15/22 Burning Supervisor Relationship Specialty Start Date End Date Medardo Robles MD [address] [place] [address] PCP - General Family Medicine 08/15/22 Burning Supervisor Relationship Specialty Start Date End Date Medardo Robles MD [address] [place] [address] PCP - General Family Medicine 08/15/22 Scheduled [...] 100 mL/hr, 30 min pre-procedure, Starting on Sun09/14/22 at 0847, To be given in the procedure area., Indication: Other: (specify), Indication: Pre procedure left atrial appendage closure 0924 (New Bag - Provider: Callie Bermeo RN)0954 (Stopped - Provider: Maty Damian RN)1418 (JUL Hold - Provider: Transfer Provider, [...] PLACED TUBE OR TUBE less than 14 Zimbabwean. To administer dissolved tablet(s) mix with 4 ounces of water over 2-3 minutes, stir for 30 seconds prior to administration; rinse dosing cup and administer residual medication to ensure full dose given 162 (Given - Provider: Maty Damian RN) 0829 (Given - Provider: Maty Daiman RN) Continuous Medication Order 09/13/2022 09/14/2022 09/15/2022 [...] Volume Adjustment - Provider: Sonja Villagomez CRNA)1418 (MAR Hold - Provider: Transfer Provider, Automatic - Reason: Patient not available)1517 (MAR Unhold - Provider: Transfer Provider, Automatic) 0833 (New Bag - Provider: Maty Damian RN)0835 (Paused - Provider: Maty Damian RN)0836 (Restarted - Provider: Maty Damian, CHRISTI)1009 (Stopped - Provider: Maty Damian RN) sodium chloride 0.9% (NS) () 75 mL/hr, Intravenous, Continuous, Starting on Emily 09/14/22 at 1615, For 4 hours 1537 (New Bag - Provider: Maty Damian RN) PRN Medication Order 09/13/2022 09/14/2022 09/15/2022 acetaminophen [...] BE BASED ON THE PRIMARY CLINICAL RECORDS. [facility]. provides no warranty or guarantee of the accuracy or completeness of information in this document.
[2023-12-27 09:15] LABS: Bilirubin Urine NEGATIVE (NEGATIVE); Blood Urine TRACE-I (NEGATIVE); Clarity Urine CLEAR (CLEAR); Color Urine YELLOW (YELLOW); Glucose Urine UA NEGATIVE (NEGATIVE); Ketones Urine NEGATIVE (NEGATIVE); Leukocyte Esterase Urine TRACE (NEGATIVE); Nitrite Urine NEGATIVE (NEGATIVE); Protein Urine NEGATIVE (NEG/TRACE); Specific Gravity Urine 1.015 (1.005-1.025); pH Urine 7.5 (5.0-9.0)
--- NOTE | 2023-12-27 09:15 | XR_ITS ---
[address] [address] Patient Name: ALLAN BREEN MRN: [id number] date: 1950 Sex: F Assigned Patient Location: [facility] Current Patient Location: Accession/Order Number: [id number] Exam Date: 12/27/2023 08:58 Report Date: 12/31/2023 13:15 At the request of: RACHEL FLORES Procedure: XR abdomen 1V EXAMINATION: XR abdomen 1V HISTORY: kidney stones COMPARISON: 11/16/2023 FINDINGS: KIDNEY/URETER - RIGHT: 7 mm nephrolith KIDNEY/URETER - LEFT: 2 mm nephrolith PELVIS: No visible ureteral calcifications. Any visible calcifications favor phleboliths. BOWEL: No abnormal dilation or deviation. BONES: No acute abnormality. Moderate to severe degenerative spondylosis OTHER: The calcifications likely calcified uterine fibroids XR/XR abdomen 1V IMPRESSION: Bilateral nephrolithiasis Electronically authenticated by: LIZBET BRADFORD Date: 12/31/2023 13:15
[2023-12-27 09:19] LABS: Urine Microscopic Indicated YES
[2023-12-27 09:23] LABS: Bacteria Urine SMALL #/HPF (NONE SEEN); Crystals Seen? None Seen #/HPF (None Seen); Mucus Urine NONE SEEN (NONE SEEN); Squamous Epithelial Cell Urine FEW #/LPF (NONE/RARE); Transitional Epi Cells Urine FEW #/LPF (NONE SEEN)
[2023-12-27 09:24] LABS: Cast Seen? NONE SEEN #/LPF (NONE SEEN); Urine Culture Indicated YES
[2023-12-27] MEDS: LACTATED RINGER'S SOLUTION 1,000 ML 50 ML IV (10:06)
[2023-12-27] MEDS: DEXTROSE IV (10:06)
[2023-12-27] MEDS: CIPROFLOXACIN IV (10:06)
--- NOTE | 2023-12-27 10:53 | P.URON_ITS ---
Urology Surgery Operative Note Operative Note Procedure Date: 12/27/23 Time Out Performed: yes Pre-op Diagnosis: Right nephrolithiasis Post-op Diagnosis: same as pre-op Procedures performed: 1. Right ESWL. Anesthesia: General-LMA Primary Surgeon: Jason Vargas Complications: None Estimated blood loss (mL): 0 Findings: 7 mm right nonobstructing renal calculus Specimens: None Drains: None Indications for Procedures: This lady has a 7 mm right renal calculus which is nonobstructing. She now presents for right ESWL. She has signed an informed consent after risks were explained. Some of these risks include bleeding, perinephric hematoma, infection and anesthesia to name a few. Detailed description of Procedure: The patient was brought to the Operating Room and placed on Siemens electromagnetic lithotripsy treatment table in the supine position. SCDs were placed on their lower extremities and turned on and functioning during the entire case. Timeout was done by all parties in the room. We all agreed upon the patient's identification and the planned procedures for this patient. Gener al Anesthesia was then administered via LMA. Treatment head was then brought to the patient's right side. While using flourscopy the stone was identified and lined up into the crosshairs. We then began applying shocks at power level 2.0 and increased to a maximum power level of 3.5. Intermittent fluoroscopy revealed that the stone was fairly quick to fragment. Within the first 500 shocks we had significant fragmentation. We applied a total of 2000 shocks. Our last fluoroscopic image revealed no evidence of any formed stone remaining. The procedure was then terminated. She was then transferred [facility] bed and wheeled to PACU in stable condition.
--- NOTE | 2023-12-27 12:02 | PC.NURSE ---
Denies urge to void at this time
--- NOTE | 2023-12-27 12:41 | PC.NURSE ---
Up to bathroom and voids brownish/red urine without difficulty; strained and negative for calculi
== END 2023-12-27 12:43 | disposition home or self-care (01) ==
PROVIDERS: Visit Provider Urology
PROC: (CPT 50590; principal; 2023-12-27 10:30)
DX: N20.0 Calculus of kidney (principal); R31.9 Hematuria, unspecified; I10 Essential (primary) hypertension; Z79.01 Long term (current) use of anticoagulants; I48.91 Unspecified atrial fibrillation; N39.0 Urinary tract infection, site not specified; Z95.2 Presence of prosthetic heart valve; Z87.442 Personal history of urinary calculi
CPT/HCPCS: 50590; 36415; 74018; 81001; 87086; J0744; J2704

== ENCOUNTER 2025-01-09 10:03 | Outpatient (OUT) | payer MEDICARE, SELFPAY ==
--- OUTSIDE RECORDS SUMMARY | 2012-12-10 08:00 | XMS_ITS | Encounter Summary ---
Author Organization [facility] Address [address], [address] [place] [address] Care Team Providers Care Hazardous Materials Analyst Name Role Phone [place], [place] Barbosa MD Primary Care Provider [phone] Encounter Details Date Type Department Care Team (Late st Contact Info) Description 12/10/2012 8:00 AM EDT Hospital Encounter [facility] [address] [place] [phone] Shar Carrington MD [address] [place] [address] Social History Tobacco Use Types Packs/Day Years Used Date Smoking Tobacco: Never Passive Smoke Exposure: Never Smokeless Tobacco: Never Alcohol Use Standard Drinks/Week Comments No 0 (1 standard drink = 0.6 oz pur e alcohol) [facility] Utilities Answer Date Recorded In the past 12 months has [employer], gas, oil, or water [employer] threatened to shut off services in your [...] place to sleep or slept in a penitentiary (including now)? No 10/30/2023 Housing Stability Vital [...] time in the past 12 m [facility], were you homeless or living in a penitentiary (including now)? 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
--- OUTSIDE RECORDS SUMMARY | 2014-03-23 10:33 | XMS_ITS | Encounter Summary ---
Author Organization [facility] Address [address] [facility], [address] [place] [address] Care Team Providers Care Ice Cream Scooper Name Role Phone Kira Robles MD Primary Care Provider [phone] Reason for Referral * Imaging (Routine) - Closed Specialty Diagnoses / Procedures Referred By Contthony t Referred To Contact Radiology Diagnoses Screening for osteoporosis Procedures DEXA Bone Density 2 Sites Kira Robles MD [address] [place] [address] Phone: tel: fax: Referral ID Status Reason Start Date Expiration Date Visits Re quested Visits Authorized [id number] Closed 05/09/2014 05/09/2015 1 1 Encounter Details Date Type Department Care Team (Latest Contact Info) Description 03/23/2014 9:33 AM [facility] Hospital Encounter [facility] RADIOLOGY [address] [place] [address] Kira Robles MD [address] [place] [address] Screening for osteoporosis; Other screening breast examination Social History Tobacco Use Types Packs/Day Years Used Date Smoking Tobacco: Never Passive Smoke Exposure: Never Smokeless Tobacco: Never Alcohol Use Standard Drinks/Week Comments No 0 (1 standard drink = 0.6 oz pur e alcohol) [facility] Utilities Answer Date Recorded In the past [...] place to sleep or slept in a long term (including now)? No 10/30/2023 Housing Stability Vital [...] time in the past 12 m [facility], were you homeless or living in a long term (including now)? No 10/30/2024 Food Insecurity Answer [...] Description 04/06/2025 10:30 AM EST Office Visit [facility] Transport Specialist [address] [phone] Shar Frias DO [address] [place] [address] 1 yr f/u 05/04/2025 8:00 AM EST Office Visit [facility] PRIMARY CARE DEMETRA [address] [place] [phone] Kira Robles MD [address] [place] [address] Return in about 6 months (around 05/01/2025) [...] FINAL Procedure: WMM Mar 23 2014 11:10AM [id number] MAMMOGRAM DIGITAL SCREEN BILAT Reason for Exam: [...] 2014 1:36P Read by: Kole ARMSTRONG M.D. [id number] on Mar 24 2014 1:36P Electronically Signed by: DR. Kole ARMSTRONG M.D. on: Mar 24 2014 1:36P Procedure Note Navid [place] Jr., MD - 03/24/2014 FINAL Procedure: WMM Mar 23 2014 11:10AM [id number] MAMMOGRAM DIGITAL SCREEN BILAT Reason for Exam: [...] the patient regarding the results. Transcribed by: [facility] on Mar 24 2014 1:36P Read by: Kole ARMSTRONG M.D. [id number] on Mar 24 2014 1:36P Electronically Signed by: DR. Kole ARMSTRONG M.D. on: Mar 24 2014 1:36P Kira Robles MD IMG MAMMOGRAPHY ORDERABLES Fi nal Result * DEXA Bone Density 2 Sites (03/23/2014 10:03 AM EST) Anatomical Region Laterality Modality Other 03/23/2014 10:0 3 AM EST Narrative 03/23/2014 1:29 PM EST FINAL Procedure: WDD Mar 23 2014 10:03AM [id number] LUMBAR HIP COMBINATION DEXA Reason for Exam: ^Special screening for osteoporosis FULL RESULT: TECHNIQUE: DEXA scan lumbar spine and bilateral hips. [employer] scanner [id number]. HISTORY: 63-year-old white female. Screening for osteoporosis. [...] T-score -2.6. Elevated fracture risk. Transcribed by: [facility] on Mar 23 2014 1:27P Read by: Kole ARMSTRONG M.D. [id number] on Mar 23 2014 1:27P Electronically Signed by: DR. Kole ARMSTRONG M.D. on: Mar 23 2014 1:27P Procedure Note Navid [place] Jr., MD - 03/23/2014 FINAL Procedure: WDD Mar 23 2014 10:03AM [id number] LUMBAR HIP COMBINATIONDEXA Reason for Exam: ^Special screening for osteoporosis FULL RESULT: TECHNIQUE: DEXA scan lumbar spine and bilateral hips. [employer] scanner [id number]. HISTORY: 63-year-old white female. Screening for osteoporosis. [...] T-score -2.6. Elevated fracture risk. Transcribed by: [facility] on Mar 23 2014 1:27P Read by: Kole ARMSTRONG M.D. [id number] on Mar 23 2014 1:27P Electronically Signed [...] documented as of this encounter Care Teams Ice Cream Scooper Relationship Specialty Start Date End Date Kira Robles MD [address] [place] [address] PCP - General Family Medicine 06/10/13 documented as of this encounter
--- OUTSIDE RECORDS SUMMARY | 2014-12-04 08:56 | XMS_ITS | Encounter Summary ---
Author Organization [facility] Address [address], [address] [place] [address] Care Team Providers Care Pump House Engineer Name Role Phone Kira Robles MD Primary Care Provider [phone] Reason for Referral * (Routine) - Closed Specialty Diagnoses / Procedures Referred By Sea t Referred To Contact Diagnoses Mitral regurgitation SOB (shortness of breath) Procedures ECHO Complete 2D W Doppler W Color Kyle Cabrera MD [address] [place] [address] Phone: tel: fax: Referral ID Status Reason Start Date Expiration Date Visits Re quested Visits Authorized [id number] Closed 01/02/2015 12/04/2014 1 1 Encounter Details Date Type Department Care Team (Latest Contact Info) Description 12/04/2014 8:56 AM EDT Hospital Encounter [facility] [address] [place] [address] Kyle Caberra MD [address] [place] [address] HTN (hypertension); Hyperlipidemia; Atrial fibrillation (HCC); Palpitations; Unspecified vitamin D deficiency; Mitral regurgitation; SOB (shortness of breath) Social History Tobacco Use Types Packs/Day Years Used Date Smoking Tobacco: Never Passive Smoke Exposure: Never Smokeless Tobacco: Never Alcohol Use Standard Drinks/Week Comments No 0 (1 standard drink = 0.6 oz pur e alcohol) [facility] Utilities Answer Date Recorded In the past [...] place to sleep or slept in a [facility] (including now)? No 10/30/2023 Housing Stability Vital Sign Answer Christophe e Recorded In the last 12 months, was t here a time when you were not able to pay the mortgage or rent on time? No 10/30/2024 In the past 12 months, how m any times have you moved where you were living? 0 10/30/2024 At any time in the past 12 m [facility], were you homeless or living in a [facility] (including now)? No 10/30/2024 Food Insecurity Answer [...] Description 04/06/2025 10:30 AM EST Office Visit [facility] Guide Dog Mobility Instructor [address] [place] [address] Shar Frias DO [address] [place] [address] 1 yr f/u 05/04/2025 8:00 AM EST Office Visit [facility] [address] [place] [address] Kira Robles MD [address] [place] [address] Return in about 6 months (around 05/01/2025) for HTN, Hyperlipidemia, gerd, afib, osteoporosis and medicare. documented as of this encounter Procedures Procedure Name Priority Date/Time Associated Diagnosis Comments XR CHEST (2 VW) Routine 12/04/2014 9:56 AM EDT HTN (hypertension) Hyperlipidemia Atrial fibrillation (HCC) Palpitations ECHOCARDIOGRAM COMPLETE 2D W DOPPLER W COLOR Routine 12/04/2014 9:25 AM EDT Mitral regurgitation SOB (shortness of breath) PATIENT FASTING? Routine 12/04/2014 9:07 AM EDT TSH REFLEX TO FT4 Routine 12/04/2014 9:0 7 AM EDT HTN (hypertension) Hyperlipidemia Atrial fibrillation (HCC) Palpitations CBC WITH AUTO DIFFERENTIAL Routine 12/04/2014 9:07 AM EDT HTN (hypertension) Hyperlipidemia Atrial fibrillation (HCC) Palpitations VITAMIN D 25 HYDROXY Routine 12/04/2014 9:07 AM EDT Unspecified vitamin D deficiency LIPID PANEL Routine 12/04/2014 9:07 AM EDT HTN (hypertension) Hyperlipidemia Atrial fibrillation (HCC) Palpitations COMPREHENSIVE METABOLIC PANEL Routine 12/04/2014 9:07 AM EDT HTN (hypertension) Hyperlipidemia Atrial fibrillation (HCC) Palpitations EKG 12-LEAD Routine 12/04/2014 9:03 AM EDT documented in this encounter Results * XR Chest Standard TWO VW (12/04/2014 9:56 AM EDT) Anatomical Region Laterality Modality Chest Computed Radiogr aphy Thoracic structure (body structure) 12/04/2014 10:01 AM EDT Impressions 12/04/2014 10:39 AM EDT IMPRESSION: Negative chest. Narrative 12/04/2014 10:39 AM EDT TECHNIQUE: 2 views chest. COMPARISON: 12/04/2013 chest. HISTORY: Hypertension, hyperlipidemia, atrial fibrillation, palpitations. FINDINGS: Heart size normal and unchanged. Lungs are clear. Bony thorax normal for age. Upper abdomen normal. Procedure Note Navid Armstrong Jr., MD - 12/04/2014 TECHNIQUE: 2 views chest. COMPARISON: 12/04/2013 chest. HISTORY: Hypertension, hyperlipidemia, atrial fibrillation,palpitations. FINDINGS: Heart size normal and unchanged. Lungs are clear. Bony thoraxnormal for age. Upper abdomen normal. IMPRESSION: Negative chest. Kyle Cabrera MD IMG DIAGNOSTIC IMAGING ORDERAB LES Final Result * ECHO Complete 2D W Doppler W Color (12/04/2014 9:25 AM EDT) 12/04/2014 9:25 AM EDT Narrative [facility] - 12/08/2014 7:34 AM EDT [facility] Transthoracic Echocardiography Report (TTE) Patient Name AMBURGEY Date of Study 12/04/2014 SAPNA Date of 1950 Gender Female Age 63 year(s) Race Room Number Height: 64 inch, 162.56 cm Corporate ID [id number] Weight: 180 pounds, 81.7 kg # Patient Acct [id number] BSA: 1.87 m^2 BMI: 30.9 kg/m^2 # MR # [id number] Operational Risk Analyst Candice Negron, RT Interpreting Physician Rick Harmon Fellow Referring Nurse Practitioner Interpreting Referring Physician DEMETRA CALHOUN Fellow * DEMETRA BAILEY * Type of Study TTE procedure:2D Echocardiogram, M-Mode, Doppler, Color Doppler. Procedure Date Date: 12/04/2014 Start: 09:25 AM Study Location: [facility] Indications:Dyspnea/SOB and Mitral regurgitation. Patient Status: Outpatient Height: 64 inches Weight: 180.01 pounds BSA: 1.87 m^2 BMI: 30.9 kg/m^2 CONCLUSIONS Summary Left ventricle is normal in size. Mild left ventricular hypertrophy. Global left ventricular systolic function is normal Estimated ejection fraction is 55 % . Left atrium is mildly dilated. Right atrium is normal in size. Normal right ventricular size and function. Aortic valve structure and function normal. Thickened mitral valve leaflets. Mild mitral regurgitation. In summary, she has mild MR with EF 50%. Medical therapy with good after load reduction. Signature Electronically signed by DEVON Cunningham)Carmelita)(CT)([facility])(Operational Risk Analyst) on 12/04/2014 09:55 AM FINDINGS Left Atrium Left atrium is mildly dilated. Left Ventricle Left ventricle is normal in size. Mild left ventricular hypertrophy. Global left ventricular systolic function is normal Estimated ejection fraction is 55 % . Right Atrium Right atrium is normal in size. Right Ventricle Normal right ventricular size and function. Mitral Valve Thickened mitral valve leaflets. Mild mitral regurgitation. Aortic Valve Aortic valve structure and function normal. Tricuspid Valve Normal tricuspid valve leaflets. Mild tricuspid regurgitation. Pulmonic Valve The pulmonic valve is normal in structure. Pericardial Effusion No significant pericardial effusion is seen. Pleural Effusion No pleural effusion seen. Miscellaneous Normal aortic root dimension. M-mode / 2D Measurements & Calculations: LVIDd:4.37 cm(3.7 - 5.6 cm) Diastolic Volume:49.5 ml LVIDs:2.84 cm(2.2 - 4.0 cm) Systolic Volume:18.44 ml IVSd:1.28 cm(0.6 - 1.1 cm) Aortic Root:2.88 cm(2.0 - 3.7 cm) LVPWd:1.25 cm(0.6 - 1.1 cm) LA Dimension: 4.09 cm(1.9 - 4.0 cm) Fractional Shortenin.01 % LA volume/Index: 45 ml /24m^2 Calculated LVEF (%): 62.75 % AV Cusp Separation: 2.21 cm LVOT:1.95 cm Mitral: Valve Area (P1/2-Time): 3.07 cm^2 Peak E-Wave: 0.80 m/s Peak A-Wave: 0.62 m/s E/A Ratio: 1.29 Peak Gradient: 2.53 mmHg Deceleration Time: 247.12 msec P1/2t: 71.66 msec Tricuspid: Pulmonic: Estimated RVSP: 23.43 mmHg Peak Velocity: 0.77 m/s Peak TR Velocity: 2.14 m/s Peak Gradient: 2.36 mmHg Peak TR Gradient: 18.3578 mmHg Estimated RA Pressure: 5 mmHg Estimated PASP: 23.36 mmHg Diastology / Tissue Doppler Lateral Wall E' velocity:0.11 m/s Lateral Wall E/E':7.36 Procedure Note Kyle Cabrera MD - 12/08/[address] [facility] Transthoracic Echocardiography Report (TTE) Patient Name AMBURGEY Date of Study 12/04/2014 SAPNA Date of 1950 Gender Female Age 63 year(s) Race Room Number Height: 64 inch, 162.56 cm Corporate ID [id number] Weight: 180 pounds, 81.7 kg # Patient Acct [id number] BSA: 1.87 m^2 BMI: 30.9kg/m^2 # MR # [id number] Operational Risk Analyst RT Octavio Interpreting Physician Rick Harmon Fellow Referring Nurse Practitioner Interpreting Referring Physician DEMETRA CALHOUN Fellow * DEMETRA BAILEY* Type of Study TTE procedure:2D Echocardiogram, M-Mode, Doppler, Color Doppler. Procedure Date Date: 12/04/2014 Start: 09:25 AM Study Location: [facility] Indications:Dyspnea/SOB and Mitral regurgitation. Patient Status: Outpatient Height: 64 inches Weight: 180.01 pounds BSA: 1.87 m^2 BMI: 30.9 kg/m^2 CONCLUSIONS Summary Left ventricle is normal in size. Mild left ventricular hypertrophy. Global left ventricular systolic function is normal Estimated ejection fraction is 55 % . Left atrium is mildly dilated. Right atrium is normal in size. Normal right ventricular size and function. Aortic valve structure and function normal. Thickened mitral valve leaflets. Mild mitral regurgitation. In summary, she has mild MR with EF 50%. Medical therapy with good after load reduction. Signature Electronically signed by RT Octavio(R)(M)(LOREN)([facility])(Operational Risk Analyst)on 12/04/2014 09:55 AM FINDINGS Left Atrium Left atrium is mildly dilated. Left Ventricle Left ventricle is normal in size. Mild left ventricular hypertrophy. Global left ventricular systolic function is normal Estimated ejection fraction is 55 % . Right Atrium Right atrium is normal in size. Right Ventricle Normal right ventricular size and function. Mitral Valve Thickened mitral valve leaflets. Mild mitral regurgitation. Aortic Valve Aortic valve structure and function normal. Tricuspid Valve Normal tricuspid valve leaflets. Mild tricuspid regurgitation. Pulmonic Valve The pulmonic valve is normal in structure. Pericardial Effusion No significant pericardial effusion is seen. Pleural Effusion No pleural effusion seen. Miscellaneous Normal aortic root dimension. M-mode / 2D Measurements & Calculations: LVIDd:4.37 cm(3.7 - 5.6 cm) Diastolic Volume:49.5 ml LVIDs:2.84 cm(2.2 - 4.0 cm) Systolic Volume:18.44 ml IVSd:1.28 cm(0.6 - 1.1 cm) Aortic Root:2.88 cm(2.0 - 3.7 cm) LVPWd:1.25 cm(0.6 - 1.1 cm) LA Dimension: 4.09 cm(1.9 - 4.0 cm) Fractional Shortenin.01 % LA volume/Index: 45 ml /24m^2 Calculated LVEF (%): 62.75 % AV Cusp Separation: 2.21 cm LVOT:1.95 cm Mitral: Valve Area (P1/2-Time): 3.07 cm^2 Peak E-Wave: 0.80 m/s Peak A-Wave: 0.62 m/s E/A Ratio: 1.29 Peak Gradient: 2.53 mmHg Deceleration Time: 247.12 msec P1/2t: 71.66 msec Tricuspid: Pulmonic: Estimated RVSP: 23.43 mmHg Peak Velocity: 0.77 m/s Peak TR Velocity: 2.14 m/s Peak Gradient: 2.36 mmHg Peak TR Gradient: 18.3578 mmHg Estimated RA Pressure: 5 mmHg Estimated PASP: 23.36 mmHg Diastology / Tissue Doppler Lateral Wall E' velocity:0.11 m/s Lateral Wall E/E':7.36 Kyle Cabrera MD ECHO ORDERABLES Final Result Performing Organization Address City/[facility] Co de Phone Number [facility] * Patient Fasting? (12/04/2014 9:07 AM EDT) Pathologist [facility] Patient Fasting? yes 12/04/2014 9:09 AM EDT [facility] Comment: Performed at [facility] [address] [place] [address] ([phone] 12/04/2014 9:07 AM EDT 12/04/2014 9:08 AM EDT Kyle Cabrera MD CHEMISTRY ORDERABLES Final Res ult Performing Organization Address [facility] Co de Phone Number [facility] [address] [place] [address], [facility] [phone] [facility] * (ABNORMAL) Comprehensive metabolic panel (12/04/2014 9:07 AM EDT) Pathologist [facility] Glucose 110(H) 70 - 99 mg/dL 12/04/2014 9:54 AM EDT [facility] BUN 11 8 - 23 mg/dL 12/04/2014 9:54 AM EDT [facility] Creatinine 0.70 0.50 - 0.90 mg/dL 12/04/2014 9:54 AM EDT [facility] BUN/Creatinine Ratio 16 9 - 20 12/04/2014 9:54 AM EDT [facility] Calcium 9.2 8.6 - 10.4 mg/dL 12/04/2014 9:54 AM EDT [facility] Sodium 140 135 - 144 mmol/L 12/04/2014 9:54 AM EDT [facility] Potassium 4.0 3.7 - 5.3 mmol/L 12/04/2014 9:54 AM EDT [facility] Chloride 106 98 - 107 mmol/L 12/04/2014 9:54 AM EDT [facility] CO2 22 20 - 31 mmol/L 12/04/2014 9:54 AM EDT [facility] Anion Gap 16 8 - 16 mmol/L 12/04/2014 9:54 AM EDT [facility] Alkaline Phosphatase 52 35 - 104 U/L 12/04/2014 9:54 AM EDT [facility] ALT 64(H) 5 - 33 U/L 12/04/2014 9:54 AM EDT [facility] AST 38(H) <32 U/L 12/04/2014 9:54 AM EDT [facility] Total Bilirubin 0.82 0.3 - 1.2 mg/dL 12/04/2014 9:54 AM EDT [facility] Total Protein 7.2 6.4 - 8.3 g/dL 12/04/2014 9:54 AM EDT [facility] Albumin 4.3 3.5 - 5.2 g/dL 12/04/2014 9:54 AM EDT [facility] Albumin/Globuli n Ratio NOT REPORTED 1.0 - 2.5 [facility] GFR Non- >60 >60 mL/min 12/04/2014 9:54 AM EDT [facility] GFR >60 >60 mL/min 12/04/2014 9:54 AM EDT [facility] GFR Comment 12/04/2014 9:54 AM EDT [facility] Comment: Average GFR for 60-69 years old: 85 mL/min/1.73sq m Chronic Kidney Disease: <60 mL/min/1.73sq m Kidney failure: <15 mL/min/1.73sq m Performed at [facility] [address] [place] [address] ([phone] GFR Staging NOT REPORTED [facility] BLOOD SPECIMEN / Unknown 12/04/2014 9:07 AM EDT 12/04/2014 9:08 AM EDT us Kyle Cabrera MD CHEMISTRY ORDERABLES Final Res ult [facility] [address] [place] [place] [address], [facility] [phone] [facility] * (ABNORMAL) CBC Auto Differential (12/04/2014 9:07 AM EDT) WBC 4.3 3.5 - 11.0 k/uL 12/04/2014 9:19 AM EDT [facility] RBC 4.39 4.0 - 5.2 m/uL 12/04/2014 9:19 AM EDT [facility] Hemoglobin 13.8 12.0 - 16.0 g/dL 12/04/2014 9:19 AM EDT [facility] Hematocrit 41.4 36 - 46 % 12/04/2014 9:19 AM EDT [facility] MCV 94.3 80 - 100 fL 12/04/2014 9:19 AM EDT [facility] MCH 31.4 26 - 34 pg 12/04/2014 9:19 AM EDT [facility] MCHC 33.3 31 - 37 g/dL 12/04/2014 9:19 AM EDT [facility] RDW 13.8 12.1 - 15.2 % 12/04/2014 9:19 AM EDT [facility] Platelets 198 140 - 450 k/uL 12/04/2014 9:19 AM EDT [facility] MPV NOT REPORTED 6.0 - 12.0 fL [facility] Differential Type YES 12/04/2014 9:19 AM EDT [facility] Seg Neutrophils 55 47 - 75 % 5 9:19 AM EDT [facility] Lymphocytes 32 15 - 40 % 12/04/2014 9:19 AM EDT [facility] Monocytes % 10(H) 4 - 8 % 12/04/2014 9:19 AM EDT [facility] Eosinophils % 2 0 - 5 % 12/04/2014 9:19 AM EDT [facility] Basophils % 1 0 - 2 % 12/04/2014 9:19 AM EDT [facility] Neutrophils Absolute 2.40(L) 2.5 - 7.0 k/uL 12/04/2014 9:19 AM EDT [facility] Lymphocytes Absolute 1.40 1.1 - 2.7 k/uL 12/04/2014 9:19 AM EDT [facility] Monocytes Absolute 0.40 0.0 - 1.0 k/uL 12/04/2014 9:19 AM EDT [facility] Eosinophils Absolute 0.10 0.0 - 0.4 k/uL 12/04/2014 9:19 AM EDT [facility] Basophils Absolute 0.00 0.0 - 0.2 k/uL 12/04/2014 9:19 AM EDT [facility] Comment: Performed at [facility] [address] [place] [address] ([phone] WBC Morphology NOT REPORTED [facility] RBC Morphology NOT REPORTED [facility] Platelet Estimate NOT REPORTED [facility] BLOOD SPECIMEN / Unknown 12/04/2014 9:07 AM EDT 12/04/2014 9:08 AM EDT Kyle Cabrera MD HEMATOLOGY ORDERABLES Final Re sult [facility] [address] [place] [address], [facility] [phone] [facility] * Lipid panel (12/04/2014 9:07 AM EDT) Cholesterol 190 <200 mg/dL 12/04/2014 9:54 AM EDT [facility] Comment: Cholesterol Guidelines: <200 Desirable 200-240 Borderline >240 Undesirable HDL 53 >40 mg/dL 12/04/2014 9:54 AM EDT [facility] Comment: HDL Guidelines: <40 Undesirable 40-59 Borderline >59 Desirable LDL Cholesterol 112 0 - 130 mg/dL 12/04/2014 9:54 AM EDT [facility] Comment: LDL Guidelines: <100 Desirable 100-129 Near to/above Desirable 130-159 Borderline >159 Undesirable Direct (measured) LDL and calculated LDL are not interchangeable tests. Chol/HDL Ratio 3.6 <5 12/04/2014 9:54 AM EDT [facility] Comment: Triglycerides 125 <150 mg/dL 12/04/2014 9:54 AM EDT [facility] Comment: Triglyceride Guidelines: <150 Desirable 150-199 Borderline 200-499 High >499 Very high Based on AHA Guidelines for fasting triglyceride, February 2012. VLDL 25 1 - 30 mg/dL 12/04/2014 9:54 AM EDT [facility] Comment: Performed at [facility] [address] [place] [address] ([phone] BLOOD SPECIMEN / Unknown 12/04/2014 9:07 AM EDT 12/04/2014 9:08 AM EDT Kyle Cabrera MD CHEMISTRY ORDERABLES Final Res ult Performing Organization Address City/[facility] Co de Phone Number [facility] [address] [place] [address], [facility] [phone] [facility] * Vitamin D 25 hydroxy (12/04/2014 9:07 AM EDT) Vit D, 25-Hydroxy 44.3 30.0 - 100.0 ng/mL 12/04/2014 9:54 AM EDT [facility] Comment: Reference Range: Vitamin D status Range Deficiency <20 ng/mL Mild Deficiency 20-30 ng/mL Sufficiency 30-100 ng/mL Toxicity >100 ng/mL Performed at [facility] [address] [place] [address] ([phone] BLOOD SPECIMEN / Unknown 12/04/2014 9:07 AM EDT 12/04/2014 9:08 AM EDT Kyle Cabrera MD CHEMISTRY ORDERABLES Final Res ult Performing Organization Address City/[facility] Co de Phone Number [facility] [address] [place] [address], [facility] [phone] [facility] * TSH with Reflex (12/04/2014 9:07 AM EDT) TSH 3.76 0.30 - 5.00 mIU/L 12/04/2014 9:54 AM EDT [facility] Comment: Performed at [facility] [address] [place] [address] ([phone] BLOOD SPECIMEN / Unknown 12/04/2014 9:07 AM EDT 12/04/2014 9:08 AM EDT Kyle Cabrera MD CHEMISTRY ORDERABLES Final Res ult Performing Organization Address City/[facility]/ZIP Co de Phone Number [facility] [place] [facility] [address] [place] [address], [facility] [phone] [facility] * EKG 12 lead (12/04/2014 9:03 AM EDT) Ventricular Rate 57 BPM [facility] Atrial Rate 57 BPM [facility] P-R Interval 184 ms [facility]IOLOG[facility] QRS Duration 84 ms [facility] RADIOLOG[facility] Q-T Interval 438 ms [facility] QTc Calculation (Bazett) 426 ms [facility] P [place] 67 degrees [facility] R [place] 40 degrees [facility] T [place] [address] [facility] 12/04/2014 9:03 AM EDT Narrative [facility] - 12/08/2014 9:00 AM EDT Sinus bradycardiaOtherwise normal ECGWhen compared with ECG of 24-NOV-2013 10:23,No significant change was found Procedure Note Result, Unknown Provider - 12/08/2014 Sinus bradycardiaOtherwise normal ECGWhen compared with ECG of [id number],No significant change was found Kyle Cabrera MD ECG ORDERABLES Final Result Performing Organization Address [facility] Co de Phone Number 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
--- NOTE | 2025-01-09 10:05 | XR_ITS ---
[address] [address] Patient Name: ALLAN BREEN MRN: [id number] date: 1950 Sex: F Assigned Patient Location: [place] Current Patient Location: [place] Accession/Order Number: [id number] Exam Date: 01/09/2025 10:12 Report Date: 01/09/2025 14:31 At the request of: RACHEL FLORES MD Procedure: XR abdomen 1V Single view of abdomen COMPARISON: 12/27/2023 HISTORY: Follow-up kidney stones THORAX: Lung bases unremarkable. FREE AIR: Supine position limits assessment BOWEL: No gaseous intestinal distention. STOOL: Moderate burden of stool RENAL STONES: No visualized stones. Overlying stool. VASCULAR CALCIFICATIONS: Pelvic phlebolith. Calcified uterine fibroids. SOFT TISSUE: Unremarkable BONES: Lumbar hyperostosis POSTSURGICAL CHANGES: None XR/XR abdomen 1V IMPRESSION: No visible stones Impression dictated by: Lane Buckley M.D. 01/09/2025 2:31 PM Dictation Location: [facility] Electronically authenticated by: [id number] Y Date: 01/09/2025 14:31
--- NOTE | 2025-01-09 10:05 | US_ITS ---
[address] [address] Patient Name: ALLAN BREEN MRN: [id number] date: 1950 Sex: F Assigned Patient Location: [place] Current Patient Location: [place] Accession/Order Number: [id number] Exam Date: 01/09/2025 10:06 Report Date: 01/09/2025 14:34 At the request of: RACHEL FLORES MD Procedure: US renal BI Bilateral Renal Ultrasound HISTORY: Kidney stones COMPARISON: None RIGHT kidney measures 12.0 cm. LEFT kidney measures 10.0 cm. Hydronephrosis: None RENAL STONE: Bilateral renal calculi measuring up to 7 mm. RENAL LESIONS: No renal lesion identified. URINARY BLADDER: Unremarkable REPRODUCTIVE STRUCTURES Not assessed IMPRESSION : No hydronephrosis. Impression dictated by: Lane Buckley M.D. 01/09/2025 2:34 PM Dictation Location: [place] [address] Electronically authenticated by: [id number] Y Date: 01/09/2025 14:34
--- OUTSIDE RECORDS SUMMARY | 2025-01-09 10:06 | XMS_ITS | Encounter Summary ---
Author Organization [facility] Address [address], [address] [place] [address] Care Team Providers Care Shop Worker Name Role Phone Kira Robles MD Primary Care Provider [phone] Reason for Visit * Reason Comments Medication Refill Encounter Details Date Type Department Care Team (Late st Contact Info) Description 12/20/2020 Refill [facility] [address] [place] [address] Kira Robles MD [address] [place] [address] Medication Refill Social History Tobacco Use Types Packs/Day Years Used Date Smoking Tobacco: Never Smokeless Tobacco: Never Alcohol Use Standard Drinks/Week Comments No 0 (1 standard drink = 0.6 oz pur e alcohol) Overall Financial Resource Strain (CARDIA) Answe r Date Recorded How hard is it for you to pa y for the very basics like food, housing, medical care, and heating? Not very hard 10/20/2020 PHQ-2 Answer Date Recorded PHQ-9 Total Score 0 07/21/2020 Hunger Vital Sign Answer Date Recorded Within the past 12 months, y ou worried that your food would run out before you got the money to buy more. Never true 10/21/19 21 Within the past 12 months, t he food you bought just didn't last and you didn't have money to get more. Never true 10/20/2020 Comments No Sex and Gender Information Value Date Recorded Sex Assigned at Not on file Legal Sex Female 4:20 PM EST Gender Identity Not on file Sexual Orientation Not on file documented as of this encounter Plan of Treatment Upcoming Encounters Date Type Department Care Team (Late st Contact Info) Description 04/06/2025 10:30 AM EST Office Visit [facility] [address] [place] [address] Shar Frias DO [address] [place] [address] 1 yr f/u 05/04/2025 8:00 AM EST Office Visit [facility] [address] [place] [phone] Kira Robles MD [address] [place] [address] Return in about 6 months (around 05/01/2025) for HTN, Hyperlipidemia, gerd, afib, osteoporosis and medicare. 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
--- OUTSIDE RECORDS SUMMARY | 2025-01-09 10:06 | XMS_ITS | Encounter Summary ---
Author Organization [facility] Address [address] [place] [address] Care Team Providers Care Curing Room Worker Name Role Phone Kira Robles MD Primary Care Provider [phone] Encounter Details Date Type Department Care Team (Late st Contact Info) Description 10/12/2021 Legacy Encounter [facility] Dept Provider, [facility] Conversion Social History Tobacco Use Types Packs/Day Years Used Date Smoking Tobacco: Never Assessed Comments Unknown Sex and Gender Information Value Date Recorded Sex Assigned at Not on file Legal Sex Female 3:03 PM EDT Gender Identity Not on file Sexual Orientation Not on file documented as of this encounter Miscellaneous Notes * Telephone Encounter - Legacy Conversion Provider - 10/12/2021 8:44 AM EDT Last OV 08/24/21 for dysuria Last OV 05/10 for AWV and chronic check up Requesting refill on fosamax thru sure script Next OV 10/24/21 EDT documented in this encounter Plan of Treatment Not on file documented as of this encounter Visit Diagnoses Not on filedocumented in this encounter Care Teams Curing Room Worker Relationship Specialty Start Date End Date Kira Robles MD [address] [place] [address] PCP - General 03/27/18 documented as of this encounter
--- OUTSIDE RECORDS SUMMARY | 2025-01-09 10:06 | XMS_ITS | Encounter Summary ---
Author Organization [facility] Address [address] [place] [address] Care Team Providers Care Manager Product Design Name Role Phone Kira Robles MD Primary Care Provider [phone] Encounter Details Date Type Department Care Team (Late st Contact Info) Description 05/31/2021 Legacy Encounter [facility] Provider, Legacy [...] Telephone Encounter - Legacy Conversion Provider - 05/31/2021 8:39 AM EST Last OV: 04/25/2021 Last RX: Next scheduled apt: 10/24/2021 Rx refill requested through [employer] for: Alendronate 70mg Rx pending. EDT documented in this encounter Plan of Treatment Not on file documented as of this encounter Visit Diagnoses Not on filedocumented in this encounter Care Teams Manager Product Design Relationship Specialty Start Date End Date Kira Robles MD [address] [place] [address] PCP - General 03/27/18 documented as of this encounter
--- OUTSIDE RECORDS SUMMARY | 2025-01-09 10:06 | XMS_ITS | Clinical Summary ---
Author Organization [facility] Address [facility] [place] [address] Care Team Providers Care Coal Trimmer Name Role Phone Kira Robles MD Primary Care Provider [phone] Allergies Active Allergy Reactions Criticality Noted Date Comments Penicillins Other (See Comments) 08/17/2022 Sulfa (Sulfonamide Antibiotics) Other (See Comments) 08/17/2022 Medications allopurinoL (ZYLOPRIM) 100 MG tablet Take 1 (one) tablet (100 mg total) by mouth daily . Active diltiazem (CARDIZEM CD) 120 MG 24 hr capsule Take 1 (one) capsule (120 mg total) by mouth daily . Active lisinopriL (PRINIVIL,ZESTR IL) 5 MG tablet Take by mouth daily . Active alendronate (FOSAMAX) 70 MG tablet Take 1 (one) tablet (70 mg total) by mouth every 7 days (full glass of water on an empty stomach). Remain upright and do not eat for next 30 min . Active metoprolol tartrate (LOPRESSOR) 50 MG tablet Take 1 (one) tablet (50 mg total) by mouth 2 (two) times a day . Active hydroCHLOROthia zide (HYDRODIURIL) 25 MG tablet Take 1 (one) tablet (25 mg total) by mouth daily . Active cholecalciferol , vitamin D3, 1,000 unit tablet Take 1 (one) tablet (1,000 Units total) by mouth daily . Active colchicine 0.6 mg tablet Take 1 (one) tablet (0.6 mg total) by mouth daily . Active aspirin 81 MG EC tablet Take 1 (one) tablet (81 mg total) by mouth daily . Active potassium chloride SA (K-DUR,KLOR-CON ) 20 MEQ tablet Take 1 (one) tablet (20 mEq total) by mouth 2 (two) times a day . Active Active Problems Problem Noted Date Diagnosed Date Presence of Watchman left atrial appendage closu re device 09/14/2022 Social History Tobacco Use Types Packs/Day Years Used Date Smoking Tobacco: Never Smokeless Tobacco: Never Tobacco Cessation:Counseling Given: Not Answered Alcohol Use Standard Drinks/Week Comments Never 0 (1 standard drink = 0.6 oz pur e alcohol) Comments Unknown Sex and Gender Information Value Date Recorded Sex Assigned at Not on file Legal Sex Female 1:19 PM EDT Gender Identity Female 08/22/2022 7:35 AM EDT Sexual Orientation Straight 08/22/2022 7: 35 AM EDT Last Filed Vital Signs Vital Sign Reading Time Taken Comments Blood Pressure 145/86 07/29/2024 10:13 AM EDT Pulse 57 07/29/2024 10:13 AM EDT Temperature 36.7 C (98 F) 09/15/2022 7:06 AM EDT Respiratory Rate 12 09/15/2022 7:06 AM EDT Oxygen Saturation 96% 07/29/2024 10:13 AM EDT Inhaled Oxygen Concentration - - Weight 83 kg (183 lb) 07/29/2024 10:13 AM EDT Height 162.6 cm (5' 4 ) 07/29/2024 10:13 AM EDT Body Mass Index 31.41 07/29/2024 10:13 AM EDT Plan of Treatment Health Maintenance Due Date Last Done Comments Dexa Scan 1950 Depression Screening/Follow- Up (PHQ-2/9) 1960 Hepatitis C Screening 1966 Falls Risk Assessment 2013 Respiratory Syncytial Virus Immunization: Risk, 60-74 Risk, or 75+ (1 - 1-dose 75+ series) 12/12/2023 COVID-19 Vaccine (2023-2 5 season) 2024 04/16/2023, 02/16/2022, 04/18/2021, Additional history exists Influenza Vaccine (#1) 2025 04/16/2023, 2021 Mammogram 03/13/2025 03/13/2024, 02/19, 03/06/2022, Additional history exists Medicare Wellness Visit 05/01/2025 05/01/20, 04/30/2023, 04/26/2022, Additional history exists Tetanus: Every 10yrs 06/30/2032 06/30/2022 Colonoscopy Discontinued 06/14/2015 Colorectal Cancer Screening/Monitoring Discontinued Zoster Vaccines Completed 04/29/2021, 02/07/2021 Pneumococcal Vaccine: Age 50+ Completed 01/09/2022, 02/18/2020 CT Colonography Discontinued Fecal DNA Discontinued Fecal occult blood test (FOBT,FIT) Discontinued Flexible sigmoidoscopy Discontinued Medical Devices Implanted Type Area Steam Oven Operator Device Identifier Shelf Expiration Date Model / Serial / Lot Closure Perclose Prostyle - [id number] Implanted:Qt y: 1 on 09/14/2022 by Pollo Angulo MD at [facility] Closure Device Right: Vein [employer]AS [id number] 06/20/2024 [id number] / / [id number]? Description:Femoral System Watchman Flex Procedure Charge - [id number] Implanted:Qt y: 1 on 09/14/2022 by Pollo Angulo MD at [facility] Closure Device [employer] [id number] / / Device 27mm Watchman Flex - [id number] Implanted:Qt y: 1 on 09/14/2022 by Pollo Angulo MD at [facility] Closure Device N/A: Heart [employer] 06/04/2025 [id number] [facility] / / [id number] Description:[employer] Insurance MEDICARE PART A & B [facility] Advance Directives For more information, please contact: [phone] * Full Code (Latest Code Status on File) Date Activated Date Inactivated Comments 09/14/2022 2:05 PM 09/15/2022 1:05 PM * Full Code Date Activated Date Inactivated Comments 09/14/2022 8:47 AM 09/14/2022 2:05 PM Care Teams Coal Trimmer Relationship Specialty Start Date End Date Kira Robles MD [address] [place] [address] PCP - General Family Medicine 08/15/22
--- OUTSIDE RECORDS SUMMARY | 2025-01-09 10:06 | XMS_ITS | Encounter Summary ---
Author Organization [facility] Address [address], [address] [place] [address] Care Team Providers Care Truck Terminal Manager Name Role Phone Kira Robles MD Primary Care Provider [phone] Reason for Visit * Reason Comments Medication Refill Encounter Details Date Type Department Care Team (Late st Contact Info) Description 11/11/2018 Refill [facility] [address] [place] [phone] Kira Robles MD [address] [place] [address] Medication Refill Social History Tobacco Use Types Packs/Day Years Used Date Smoking Tobacco: Never Smokeless Tobacco: Never Alcohol Use Standard Drinks/Week Comments No 0 (1 standard drink = 0.6 oz pur e alcohol) PHQ-2 Answer Date Recorded PHQ-2 Score 0 08/21/2018 Comments No Sex and Gender Information Value Date Recorded Sex Assigned at Not on file Legal Sex Female 4:20 PM EST Gender Identity Not on file Sexual Orientation Not on file documented as of this encounter Plan of Treatment Upcoming Encounters Date Type Department Care Team (Late st Contact Info) Description 04/06/2025 10:30 AM EST Office Visit [facility] [employer] [address] [place] [phone] Shar Frias DO [address] [place] [address] 1 yr f/u 05/04/2025 8:00 AM EST Office Visit [facility] [address] [place] [phone] Kira Robles MD [address] [place] [address] Return in about 6 months (around 05/01/2025) for HTN, Hyperlipidemia, gerd, afib, osteoporosis and medicare. 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
--- OUTSIDE RECORDS SUMMARY | 2025-01-09 10:06 | XMS_ITS | Encounter Summary ---
Author Organization [facility] Address [address] [place] [address] Care Team Providers Care Doubling Machine Operator Name Role Phone Kira Robles MD Primary Care Provider [phone] Encounter Details Date Type Department Care Team (Late st Contact Info) Description 12/29/2019 Legacy Encounter [facility] Dept Provider, Legacy [...] Telephone Encounter - Legacy Conversion Provider - 12/29/2019 10:02 AM EDT Last OV: 10/15/2019 Last RX: 09/01/19 Next scheduled apt: 04/21/2020 Medication pending EDT documented in this encounter Plan of Treatment Not on file documented as of this encounter Visit Diagnoses Not on filedocumented in this encounter Care Teams Doubling Machine Operator Relationship Specialty Start Date End Date Kira Robles MD [address] [place], [place] [phone] PCP - General 03/27/18 documented as of this encounter
--- OUTSIDE RECORDS SUMMARY | 2025-01-09 10:06 | XMS_ITS | Encounter Summary ---
Author Organization [facility] Address [address] [place] [address] Care Team Providers Care Substation Manager Name Role Phone Kira Robles MD Primary Care Provider [phone] Encounter Details Date Type Department Care Team (Late st Contact Info) Description 09/01/2019 Legacy Encounter [facility] Dept Provider, Legacy [...] Telephone Encounter - Legacy Conversion Provider - 09/01/2019 11:22 AM EDT Last OV: 06/16/2019 Last RX: Next scheduled apt: 09/17/2019, Fosamax pending Dr Robles's signature. EDT documented in this encounter Plan of Treatment Not on file documented as of this encounter Visit Diagnoses Not on filedocumented in this encounter Care Teams Substation Manager Relationship Specialty Start Date End Date Kira Robles MD [address] [place] [address] PCP - General 03/27/18 documented as of this encounter
--- OUTSIDE RECORDS SUMMARY | 2025-01-09 10:06 | XMS_ITS | Clinical Summary ---
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, left, solitary 11/11/2012 Atrial fibrillation 12/28/2010 HTN (hypertension) 12/28/2010 Hyperlipidemia 12/28/2010 Kidney stones 12/28/2010 Immunizations Immunization Administration Dates Next Due Pneumococcal Polysaccharide PPSV23 02/18/2020 Zoster, Recombinant 04/29/2021,02/07/2021,2020 Family History Medical History Relation Name Comments Clotting disorder Brother 1 Diabetes Brother 1 Heart disease Brother 1 Hypertension Brother 1 Kidney cancer Brother 1 Heart attack Brother 2 61 [id number] Brother 3 51 AAA Stroke Father 81 Cancer Mother 80 walstroms dx High Blood Pressure Mother 80 Liver disease Sister 1 45 Cancer Sister 2 72 Relation Name Status Comments Brother 1 Brother 2 61 Brother 3 51 Brother 4 Brother 5 Alive Brother 6 Brother 7 Father 81 Maternal Grandfather Maternal Grandmother Mother 80 Paternal Grandfather Paternal Grandmother Sister 1 45 Sister 2 72 Son 1 Alive Son 2 Alive Son 3 Alive Son 4 Alive Social History Tobacco Use Types Packs/Day Years Used Date Smoking Tobacco: Never Smokeless Tobacco: Never Alcohol Use Standard Drinks/Week Comments No 0 (1 standard drink = 0.6 oz pur e alcohol) Comments Unknown Sex and Gender Information Value Date Recorded Sex Assigned at Not on file Legal Sex Female 3:03 PM EDT Gender Identity Not on file Sexual Orientation Not on file Last Filed Vital Signs Vital Sign Reading Time Taken Comments Blood Pressure 120/70 10/24/2021 11:27 AM EDT Pulse 56 10/24/2021 11:27 AM EDT Temperature 36.7 C (98 F) 02/28/2021 12:03 PM EDT Respiratory Rate - - Oxygen Saturation 98% 10/24/2021 11:27 AM EDT Inhaled Oxygen Concentration - - Weight 83.5 kg (184 lb) 10/24/2021 11:27 AM EDT Height 162.6 cm (5' 4 ) 08/24/2021 8:36 AM EDT Body Mass Index 31.58 08/24/2021 8:36 AM EDT Plan of Treatment Health Maintenance Due Date Last Done Comments Depression Screening 1962 Hepatitis C Screening 1966 DTaP/Tdap/Td Vaccines (1 - Tdap) 12/12/1967 Pneumococcal Vaccine: 50+ Years (2 of 2 - PCV) 02/17/2021 02/18/2020 Bone Density Scan 01/13/2022 01/14/2020 RSV Immunization for Adults (1 - 1-dose 75+ series) 12/12/2023 COVID-19 Vaccine (1 - 2023-2 5 season) 2024 Influenza Vaccine (#1) 2025 Lipid Panel 04/15/2026 04/15/2021, 04/13/2020, 04/21/2019 Zoster Vaccines Completed 04/29/2021, 02/07/2021, 02/07/2021 HIB Vaccines Aged Out No longer eligi ble based on patient's age to complete this topic HPV Vaccines Aged Out No longer eligi ble based on patient's age to complete this topic Hepatitis A Vaccines Aged Out No long er eligible based on patient's age to complete this topic Hepatitis B Vaccines Aged Out No long er eligible based on patient's age to complete this topic IPV Vaccines Aged Out No longer eligi ble based on patient's age to complete this topic Meningococcal B Vaccine Aged Out No l onger eligible based on patient's age to complete this topic Meningococcal Vaccine Aged Out No johnathon eddie eligible based on patient's age to complete this topic RSV Immunization under 20 Months Aged Out No longer eligible b ased on patient's age to complete this topic Rotavirus Vaccines Aged Out No longer eligible based on patient's age to complete this topic Procedures Procedure Name Priority Date/Time Associated Diagnosis Comments LIPID PANEL Routine 04/15/2021 9:01 AM EST [facility] DEXA BONE DENSITY 2 SITES Routine 01/14/2020 9:40 AM EDT from Last 3 Months or Most Recently Relevant to Health Maintenance Results * (ABNORMAL) Lipid panel (04/15/2021 9:01 AM EST) CHOLESTEROL 160 <200 mg/dL 04/15/2021 9:01 AM [facility] Comment: Cholesterol Guidelines: <200 Desirable 200-240 Borderline >240 Undesirable HDL CHOLESTEROL 40(L) >40 mg/dL 04/15/2021 9:01 AM [facility] Comment: HDL Guidelines: <40 Undesirable 40-59 Borderline >59 Desirable LDL Cholesterol 99 0 - 130 mg/dL 04/15/2021 9:01 AM [facility] Comment: LDL Guidelines: <100 Desirable 100-129 Near to/above Desirable 130-159 Borderline >159 Undesirable Direct (measured) LDL and calculated LDL are not interchangeable tests. CHOL/HDL 4.0 <5 04/15/2021 9:01 AM [facility] Comment: TRIGLYCERIDE 104 <150 mg/dL 04/15/2021 9:01 AM [facility] Comment: Triglyceride Guidelines: <150 Desirable 150-199 Borderline 200-499 High >499 Very high Based on AHA Guidelines for fasting triglyceride, February 2012. VLDL Cholesterol (External) NOT REPORTED 1 - 30 mg/dL 04/15/2021 9:01 AM [facility] 04/15/2021 9:01 AM EST 04/15/2021 9:02 AM EST us Legacy Conversion Provider LAB BLOOD ORDERABLES Final Result [facility] [place] [address], [place] [id number] * DEXA BONE DENSITY 2 SITES (01/14/2020 9:40 AM EDT) Anatomical Region Laterality Modality Radiographic Teresita ging 01/14/2020 9:30 AM EDT Impressions 01/14/2020 10:52 AM EDT Mild improvement in the bone mineral density of the femoral necks, now in the osteopenic range. Increase bone mineral density in the lumbar spine is due to increased degenerative changes since 2013. I would still consider the patient to be osteopenic. The 10 year probability of major osteoporotic fracture is 13.5% and hip fracture risk is 3.2%. Narrative 01/14/2020 10:52 AM EDT EXAM: DEXA BONE DENSITY 2 SITES HISTORY: Reason for exam:->screening. 69-year-old female. COMPARISON: 03/23/2014 DXA scan showed osteoporosis in the left femoral neck TECHNIQUE: DXA scan lumbar spine and bilateral hips. [employer] scanner serial #[id number] FINDINGS: Prominent degenerative change lumbar spine. L1 through L4 bone mineral density normal at 1.324 g/sq cm with a T-score of 1.2. Due to the increase in the degenerative change this shows a 22.8% increase in bone density since 2013, which is a false elevation. The bone mineral density of the total hips is now within normal limits with a T-score of -0.8, showing a 7.1% improvement since 2013. There is a mild improvement in the femoral necks. The left femoral neck T-score is now -2.3. The mean femoral neck bone mineral density is 0.729 g/sq cm with a T-score of -2.2, previously -2.4. Procedure Note Provider, Legacy Conversion - 02/09/2022 EXAM: DEXA BONE DENSITY 2 SITES HISTORY: Reason for exam:->screening. 69-year-old female. COMPARISON: 03/23/2014 DXA scan showed osteoporosis in the left femoralneck TECHNIQUE: DXA scan lumbar spine and bilateral hips. [employer] serial #[id number] FINDINGS: Prominent degenerative change lumbar spine. L1 through L4 bone mineral density normal at 1.324 g/sq cm with a T-score of 1.2. Due to the increase in the degenerative change this shows a 22.8% increase in bonedensity since 2013, which is a false elevation. The bone mineral density of the total hips is now within normal limitswith a T-score of -0.8, showing a 7.1% improvement since 2014. There is a mild improvement in the femoral necks. The left femoral neck T-score is now-2.3. The mean femoral neck bone mineral density is 0.729 g/sq cm with a T-scoreof -2.2, previously -2.4. IMPRESSION: Mild improvement in the bone mineral density of the femoral necks, now inthe osteopenic range. Increase bone mineral density in the lumbar spine is due to increased degenerative changes since 2013. I would still consider the patient to be osteopenic. The 10 year probability of major osteoporotic fracture is 13.5% and hip fracture risk is 3.2%. us Legacy Conversion Provider IMG DXA PROCEDURES Fi nal Result from Last 3 Months or Most Recently Relevant to Health Maintenance Care Teams Mushroom Press Operator Relationship Specialty Start Date End Date Kira Robles MD [address] [place] [address] PCP - General 03/27/18
--- OUTSIDE RECORDS SUMMARY | 2025-01-09 10:06 | XMS_ITS | Encounter Summary ---
Author Organization [employer] Address [address] [place] [address] Care Team Providers Care Automotive Machinist Name Role Phone Kira Robles MD Primary Care Provider [phone] Encounter Details Date Type Department Care Team (Late st Contact Info) Description 10/14/2021 Legacy Encounter [facility] Provider, Legacy [...] Telephone Encounter - Legacy Conversion Provider - 10/14/2021 6:19 AM EDT Last visit: 08/24/2021 Next Visit Date: Future Appointments Date Time Provider Department Center 10/24/2021 11:00 AM Kira Robles MD [facility] 04/20/2022 11:00 AM Kyle Cabrera MD [facility] Medication List: Prior to Admission medications Medication Sig Start Date End Date Taking? Authorizing Provider alendronate (FOSAMAX) 70 MG tablet take 1 tablet by mouth every 7 days with a glass of water. take first thing in the morning 30 minutes before first food or other medication 10/12/21 Kira Robles MD lisinopril (PRINIVIL;ZESTRIL) 5 MG tablet TAKE 1 TABLET BY MOUTH EVERY DAY 10/12/21 Kyle Cabrera MD dilTIAZem (CARDIZEM CD) 120 MG extended release capsule TAKE 1 CAPSULE BY MOUTH EVERY DAY 10/12/21 Kyle Cabrera MD potassium chloride (KLOR-CON M) 20 MEQ extended release tablet TAKE 1 TABLET BY MOUTH EVERY DAY 10/12/21 Kyle Cabrera MD rivaroxaban (XARELTO) 20 MG TABS tablet TAKE ONE TABLET BY MOUTH DAILY WITH BREAKFAST 07/26/21 Kyle Horowitz MD metoprolol tartrate (LOPRESSOR) 50 MG tablet TAKE 1 TABLET BY MOUTH TWO TIMES A DAY 06/06/21 Kyle Cabrera MD allopurinol (ZYLOPRIM) 100 MG tablet Take 1 tablet by mouth daily 06/16/19 Kira Robles MD hydrochlorothiazide (HYDRODIURIL) 25 MG tablet TAKE 1 TABLET BY MOUTH ONE TIME A DAY 01/11/15 Kyle Horowitz MD vitamin D (CHOLECALCIFEROL) 1000 UNIT TABS tablet Take 1,000 Units by mouth daily. Historical Provider, aspirin 81 MG EC tablet Take 81 mg by mouth daily. Historical Provider, documented in this encounter Plan of Treatment Not on file documented as of this encounter Visit Diagnoses Not on filedocumented in this encounter Care Teams Automotive Machinist Relationship Specialty Start Date End Date Kira Robles MD [address] [place], [place] [phone] PCP - General 03/27/18 documented as of this encounter
--- OUTSIDE RECORDS SUMMARY | 2025-01-09 10:06 | XMS_ITS | Encounter Summary ---
Author Organization [facility] Address [address] [facility], [address] [place] [address] Care Team Providers Care Fiber Analyst Name Role Phone Kira Robles MD Primary Care Provider [phone] Reason for Visit * Reason Comments Medication Refill Encounter Details Date Type Department Care Team (Late st Contact Info) Description 05/31/2021 Refill [facility] [place] [address] [place] [address] Kira Robles MD [address] [place] [address] Medication Refill Social History Tobacco [...] Answer Date Recorded PHQ-9 Total Score 0 04/25/2021 Hunger Vital Sign Answer Date Recorded Within [...] Description 04/06/2025 10:30 AM EST Office Visit [facility] Geophysicist [address] [place] [address] Shar Frias DO [address] [place] [address] 1 yr f/u 05/04/2025 8:00 AM EST Office Visit [facility] [place] [address] [place] [phone] Kira Robles MD [address] [place] [address] Return in about 6 months (around 05/01/2025) for HTN, Hyperlipidemia, gerd, afib, osteoporosis and medicare. 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
--- OUTSIDE RECORDS SUMMARY | 2025-01-09 10:06 | XMS_ITS | Encounter Summary ---
Author Organization [facility] Address [address] [facility], [address] [place] [address] Care Team Providers Care Aircraft Steel Fabricator Name Role Phone Kira Robles MD Primary Care Provider [phone] Reason for Referral * Imaging (Routine) - Closed Specialty Diagnoses / Procedures Referred By Sea t Referred To Contact Radiology Diagnoses Hematuria, gross Kidney stones Procedures CT ABDOMEN PELVIS W IV CONTRAST Additional Contrast? Oral Jason Vargas MD [address] [place] [address] Phone: tel: fax: Referral ID Status Reason Start Date Expiration Date Visits Re quested Visits Authorized [id number] Closed 07/11/2021 07/11/2022 1 1 Encounter Details Date Type Department Care Team (Latest Contact Info) Description 07/11/2021 Transcribe Orders [facility] [address] [place], [place] [phone] Jason Vargas MD [address] [place] [address] Hematuria, gross (Primary Dx); Kidney stones Social History Tobacco Use Types Packs/Day Years [...] Description 04/06/2025 10:30 AM EST Office Visit [facility] Sterilization Tech [address] [place] [address] Shar Frias DO [address] [place] [address] 1 yr f/u 05/04/2025 8:00 AM EST Office Visit [facility] [place] [address] [place] [phone] Kira Robles MD [address] [place] [address] Return in about 6 months (around 05/01/2025) for HTN, Hyperlipidemia, gerd, afib, osteoporosis and medicare. documented as of this encounter Results * CT ABDOMEN PELVIS W IV CONTRAST Additional Contrast? None (07/13/2021 10:24 AM EST) Anatomical Region Laterality Modality Abdomen, Pelvis, Hip Computed To mography 07/13/2021 10:3 9 AM EST Impressions 07/13/2021 12:03 PM EST Fluid in the endometrium, abnormal for postmenopausal female. Consider pelvic ultrasound to include transvaginal scanning. Scattered benign small bilateral renal cysts. Narrative 07/13/2021 12:03 PM EST EXAMINATION: CT ABDOMEN PELVIS W IV CONTRAST, 07/13/2021 10:24 AM EST HISTORY: 70-year-old female microhematuria, kidney stones. COMPARISON: [place] 03/22/2017. TECHNIQUE: CT scan of the abdomen and pelvis was performed with IV contrast. CT dose reduction technique was used, including Automated Exposure Control. FINDINGS: PERTINENT POSITIVES: There is fluid in the endometrium of the uterus which measures 1.7 cm in AP dimension. PERTINENT NEGATIVES: No large or obstructing urinary tract calculi. COINCIDENTAL FINDINGS: Several calcified fibroids in the uterus, largest measuring 2.1 cm in diameter. Prominent diverticulosis descending and sigmoid colon. Barely perceptible fat-containing umbilical hernia. Scattered small benign renal cysts. ROUTINE EXAMINATION: Normal appendix. No filling defect in the posteriorly layering contrast in the bladder. No retroperitoneal mass. Minimal plaque aorta. Normal adrenal glands, spleen, pancreas, gallbladder, and liver. Lung bases clear. Age expected degenerative changes in the spine. Procedure Note Navid Armstrong Jr., MD - 07/13/2021 EXAMINATION: CT ABDOMEN PELVIS W IV CONTRAST, 07/13/2021 10:24 AM EST HISTORY: 70-year-old female microhematuria, kidney stones. COMPARISON: [place] 03/22/2017. TECHNIQUE: CT scan of the abdomen and pelvis was performed with IVcontrast. CT dose reduction technique was used, including Automated Exposure Control. FINDINGS: PERTINENT POSITIVES: There is fluid in the endometrium of the uterus which measures 1.7 cm in AP dimension. PERTINENT NEGATIVES: No large or obstructing urinary tract calculi. COINCIDENTAL FINDINGS: Several calcified fibroids in the uterus, largest measuring 2.1 cm in diameter. Prominent diverticulosis descending andsigmoid colon. Barely perceptible fat-containing umbilical hernia. Scattered small benign renal cysts. ROUTINE EXAMINATION: Normal appendix. No filling defect in the posteriorly layering contrast in the bladder. No retroperitoneal mass. Minimal plaque aorta. Normal adrenal glands, spleen, pancreas, gallbladder, and liver.Lung bases clear. Age expected degenerative changes in the spine. IMPRESSION: Fluid in the endometrium, abnormal for postmenopausal female. Considerpelvic ultrasound to include transvaginal scanning. Scattered benign small bilateral renal cysts. 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
--- OUTSIDE RECORDS SUMMARY | 2025-01-09 10:06 | XMS_ITS | Encounter Summary ---
Author Organization [facility] Address [address] [facility], [address] [place] [address] Care Team Providers Care Ornamental Iron Worker Helper Name Role Phone Kira Robles MD Primary Care Provider [phone] Encounter Details Date Type Department Care Team (Late st Contact Info) Description 12/27/2023 Orders Only [facility] [place] [address] [place] [address] Provider, MD Saskia Social History Tobacco Use Types Packs/Day Years Used Date Smoking Tobacco: Never Passive Smoke Exposure: Never Smokeless Tobacco: Never Alcohol Use Standard Drinks/Week Comments No 0 (1 standard drink = 0.6 oz pur e alcohol) AUDIT-C Answer Date Recorded Q1: How often do you have a drink containing alcohol? Never 04/30/2023 Q2: How many drinks containi ng alcohol do you have on a typical day when you are drinking? Patient does not drink Q3: How often do you have si x or more drinks on one occasion? Never 04/30/2023 Overall Financial Resource Strain (CARDIA) Answe r Date Recorded How hard is it for you to pa y for the very basics like food, housing, medical care, and heating? Not hard at all 10/30/2023 PHQ-2 Answer Date Recorded PHQ-9 Total Score 0 06/26/2023 Exercise Vital Sign Answer Date Recorde d On average, how many days pe r week do you engage in moderate to strenuous exercise (like a brisk walk)? 0 days 04/30/2023 On average, how many minutes do you engage in exercise at this level? 0 min 04/30/2023 Hunger Vital Sign Answer Date Recorded Within the past 12 months, y ou worried that your food would run out before you got the money to buy more. Never true 10/30/19 24 Within the past 12 months, t he food you bought just didn't last and you didn't have money to get more. Never true 10/30/2023 PRAPARE - Transportation Answer Date Re corded Lack of Transportation (Medical) Not on file 10/30/2023 In the past 12 months, has l ack of transportation kept you from meetings, work, or from getting things needed for daily living? No 10/30/2023 Housing Stability Vital Sign Answer Christophe e Recorded Unable to Pay for Housing in the Last Year Not o n file 10/30/2023 Number of Places Lived in the Last Year Not on f ile 10/30/2023 In the last 12 months, was t here a time when you did not have a steady place to sleep or slept in a usp (including now)? No 10/30/2023 Food Insecurity Answer Date Recorded Within the past 12 months, y ou worried that your food would run out before you got the money to buy more. 1 10/30/2023 Within the past 12 months, t he food you bought just didn't last and you didn't have money to get more. 1 10/30/2023 Comments No Sex and Gender Information Value Date Recorded Sex Assigned at Not on file Legal Sex Female 4:20 PM EST Gender Identity Not on file Sexual Orientation Not on file documented as of this encounter Plan of Treatment Upcoming Encounters Date Type Department Care Team (Late st Contact Info) Description 04/06/2025 10:30 AM EST Office Visit [facility] Oliving Machine Operator [address] [place] [phone] Shar Frias DO [address] [place] [address] 1 yr f/u 05/04/2025 8:00 AM EST Office Visit [facility] [address] [address] Kira Robles MD [address] [place] [address] Return in about 6 months (around 05/01/2025) for HTN, Hyperlipidemia, gerd, afib, osteoporosis and medicare. 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
--- OUTSIDE RECORDS SUMMARY | 2025-01-09 10:06 | XMS_ITS | Encounter Summary ---
Author Organization [facility] Address [facility] [place] [address] Care Team Providers Care General Utility Maintenance Repairer Name Role Phone Kira Robles MD Primary Care Provider [phone] Encounter Details Date Type Department Care Team (Late st Contact Info) Description 08/28/2022 Prep for Surgery [facility] Heart & Vascular Physicians [address] [place] [address] 3rd floor [place] [address] Jack Escobar RN Social History Tobacco Use Types Packs/Day Years Used Date Smoking Tobacco: Never Smokeless Tobacco: Never Alcohol Use Standard Drinks/Week Comments Never 0 (1 standard drink = 0.6 oz pur e alcohol) Comments Unknown Sex and Gender Information Value Date Recorded Sex Assigned at Not on file Legal Sex Female 1:19 PM EDT Gender Identity Female 08/22/2022 7:35 AM EDT Sexual Orientation Straight 08/22/2022 7: 35 AM EDT COVID-19 Exposure Response Date Recorded In the last 10 days, have yo u been in contact with someone who was confirmed or suspected to have Coronavirus/COVID-19? No / Unsure 08/22/2022 7:26 AM EDT documented as of this encounter Plan of Treatment Not on file documented as of this encounter Visit Diagnoses Not on filedocumented in this encounter Care Teams General Utility Maintenance Repairer Relationship Specialty Start Date End Date Kira Robles MD [address] [place] [address] PCP - General Family Medicine 08/15/22 documented as of this encounter
--- OUTSIDE RECORDS SUMMARY | 2025-01-09 10:06 | XMS_ITS | Encounter Summary ---
Author Organization [facility] Address [address] [place] [address] Care Team Providers Care Watch Dial Stoner Name Role Phone Kira Robles MD Primary Care Provider [phone] Encounter Details Date Type Department Care Team (Late st Contact Info) Description 12/20/2020 Legacy Encounter [facility] Dept Provider, Legacy [...] Telephone Encounter - Legacy Conversion Provider - 12/20/2020 2:39 PM EDT Patient is asking for a refill on Fosamax 70 mg. Patient last seen 10/20/20. Next appt 04/25/21. [facility] Health Maintenance Topic Date Due ??? Hepatitis C screen Never done ??? DTaP/Tdap/Td vaccine (1 - Tdap) Never done ??? Shingles Vaccine (1 of 2) Never done ??? Flu vaccine (1) 01/19/2021 ??? Annual Wellness Visit (AWV) 02/18/2021 ??? A1C test (Diabetic or Prediabetic) 04/13/2021 ??? Potassium monitoring 04/13/2021 ??? Creatinine monitoring 04/13/2021 ??? Breast cancer screen 01/13/2022 ??? Lipid screen 04/13/2025 ??? Colon cancer screen colonoscopy 06/14/2025 ??? DEXA (modify frequency per FRAX score) Completed ??? Pneumococcal 65+ years Vaccine Completed ??? COVID-19 Vaccine Completed ??? Hepatitis A vaccine Aged Out ??? Hepatitis B vaccine Aged Out ??? Hib vaccine Aged Out ??? Meningococcal (ACWY) vaccine Aged Out (applicable per patient's age: Cancer Screenings, Depression Screening, Fall Risk Screening, Immunizations) Hemoglobin A1C (%) Date Value 04/13/2020 5.7 LDL Cholesterol (mg/dL) Date Value 04/13/2020 125 AST (U/L) Date Value 04/13/2020 30 ALT (U/L) Date Value 04/13/2020 44 (H) BUN (mg/dL) Date Value 04/13/2020 21 (goal A1C is < 7) (goal LDL is <100) need 30-50% reduction from baseline BP Readings from Last 3 Encounters: 10/20/20 118/78 07/21/20 134/80 04/22/20 (!) 160/80 (goal BP 120/80) All Future Testing planned in [facility]: Lab Frequency Next Occurrence TSH with Reflex Once 04/22/2021 CBC Auto Differential Once 04/22/2021 Comprehensive Metabolic Panel Once 04/22/2021 Vitamin D 25 Hydroxy Once 04/22/2021 Lipid Panel Once 04/22/2021 Magnesium Once 04/22/2021 EKG 12 Lead Once 04/21/2021 XR CHEST (2 VW) Once 04/14/2021 Next Visit Date: Future Appointments Date Time Provider Department Center 04/21/2021 11:00 AM MD Carlos Delong [facility] 04/25/2021 12:00 PM MD CARLOS Roy [facility] Patient Active Problem List: HTN (hypertension) Hyperlipidemia Atrial fibrillation (HCC) Kidney stones Sepsis due to urinary tract infection (HCC) Cyst of breast, left, solitary Atypical hyperplasia of breast Mitral regurgitation Osteoporosis Rectal polyp Diverticulosis Vitamin D deficiency disease EDT documented in this encounter Plan of Treatment Not on file documented as of this encounter Visit Diagnoses Not on filedocumented in this encounter Care Teams Watch Dial Stoner Relationship Specialty Start Date End Date Kira Robles MD [facility] [place] [address] PCP - General 03/27/18 documented as of this encounter
--- OUTSIDE RECORDS SUMMARY | 2025-01-09 10:06 | XMS_ITS | Encounter Summary ---
Author Organization [facility] Address [address] [place] [address] Care Team Providers Care Wiring Technician Name Role Phone Kira Robles MD Primary Care Provider [phone] Encounter Details Date Type Department Care Team [...] Encounter - Legacy Conversion Provider - 12/29/2019 9:58 AM EDT Fosamax 70 mg [facility] Last check up 10/15/19 Health Maintenance Topic Date Due ??? Hepatitis C screen 1950 ??? DTaP/Tdap/Td vaccine (1 - Tdap) 12/12/1967 ??? Shingles Vaccine (1 of 2) 1998 ??? Annual Wellness Visit (AWV) 01/11/2020 ??? Pneumococcal 65+ years Vaccine (1 of 1 - PPSV23) 03/18/2020 (Originally 2013) ??? Flu vaccine (1) 01/20/2020 ??? Potassium monitoring 04/21/2020 ??? Creatinine monitoring 04/21/2020 ??? Breast cancer screen 10/04/2020 ??? Lipid screen 04/21/2024 ??? Colon cancer screen colonoscopy 06/14/2025 ??? DEXA (modify frequency per FRAX score) Completed ??? Hepatitis A vaccine Aged Out ??? Hepatitis B vaccine Aged Out ??? Hib vaccine Aged Out ??? Meningococcal (ACWY) vaccine Aged Out (applicable per patient's age: Cancer Screenings, Depression Screening, Fall Risk Screening, Immunizations) LDL Cholesterol (mg/dL) Date Value 04/21/2019 111 AST (U/L) Date Value 04/21/2019 31 ALT (U/L) Date Value 04/21/2019 54 (H) BUN (mg/dL) Date Value 04/21/2019 14 (goal A1C is < 7) (goal LDL is <100) need 30-50% reduction from baseline BP Readings from Last 3 Encounters: 10/15/19 130/78 06/16/19 130/80 04/28/19 128/70 (goal BP 120/80) All Future Testing planned in [facility]: Lab Frequency Next Occurrence Hemoglobin A1C Once 04/28/2019 TSH with Reflex Once 04/28/2020 CBC Auto Differential Once 04/28/2020 Comprehensive Metabolic Panel Once 04/28/2020 Vitamin D 25 Hydroxy Once 04/28/2020 Lipid Panel Once 04/28/2020 Magnesium Once 04/28/2020 EKG 12 Lead Once 04/28/2020 XR CHEST STANDARD (2 VW) Once 04/28/2020 JAMES DIGITAL SCREEN W CAD BILATERAL Once 12/15/2019 DEXA BONE DENSITY 2 SITES Once 12/15/2019 Next Visit Date: Future Appointments Date Time Provider Department Center 04/21/2020 1:00 PM MD [facility]RA Roy [facility] 04/22/2020 11:30 AM MD Dem[facility] Delong [facility] Patient Active Problem List: HTN (hypertension) Hyperlipidemia [...] on filedocumented in this encounter Care Teams Wiring Technician Relationship Specialty Start Date End Date Kira Robles MD [address] [place] [address] PCP - General 03/27/18 documented as of this encounter
--- OUTSIDE RECORDS SUMMARY | 2025-01-09 10:06 | XMS_ITS | Encounter Summary ---
Author Organization [facility] Address [address] [place] [address] Care Team Providers Care Sample Checker Name Role Phone Kira Robles MD Primary Care Provider Encounter Details Date Type Department Care Team [...] Encounter - Legacy Conversion Provider - 12/20/2020 2:49 PM EDT Last OV 10/20/20 for checkup Requesting refill on fosamax thru sure script Next OV 04/25/21 EDT documented in this encounter Plan of Treatment Not on file documented as of this encounter Visit Diagnoses Not on filedocumented in this encounter Care Teams Sample Checker Relationship Specialty Start Date End Date Kira Robles MD [address] [place] [address] PCP - General 03/27/18 documented as of this encounter
--- OUTSIDE RECORDS SUMMARY | 2025-01-09 10:06 | XMS_ITS | Encounter Summary ---
Author Organization [facility] Address [address] [place] [address] Care Team Providers Care Supervising Bailiff Name Role Phone Kira Robles MD Primary Care Provider [phone] Encounter Details Date Type Department Care Team (Late st Contact Info) Description 06/06/2021 Legacy Encounter [facility] Dept Provider, Legacy [...] Telephone Encounter - Legacy Conversion Provider - 06/06/2021 11:49 AM EST Patient called for refill of her Metoprolol Tart 50mg BID to [facility] [place] EDT documented in this encounter Plan of Treatment Not on file documented as of this encounter Visit Diagnoses Not on filedocumented in this encounter Care Teams Supervising Bailiff Relationship Specialty Start Date End Date Kira Robles MD [address] [place], [place] [phone] PCP - General 03/27/18 documented as of this encounter
--- OUTSIDE RECORDS SUMMARY | 2025-01-09 10:06 | XMS_ITS | Encounter Summary ---
Author Organization [facility] Address [address] [facility], [address] [place] [address] Care Team Providers Care Safety Companion Name Role Phone Kira Robles MD Primary Care Provider [phone] Reason for Visit * Reason Comments Medication Refill Encounter Details Date Type Department Care Team (Late st Contact Info) Description 04/13/2019 Refill [facility] [address] [place] [phone] Kira Robles MD [address] [place] [address] Medication Refill Social History Tobacco [...] Description 04/06/2025 10:30 AM EST Office Visit [facility] [address] Stenographer [address] [place] [phone] Shar Frias DO [address] [place] [address] 1 yr f/u 05/04/2025 8:00 AM EST Office Visit [facility] [place] [address] [place] [phone] Kira Robles MD [address] [place] [address] Return in about 6 months (around 05/01/2025) [...] has been complete d for the patient 01/10/2019 11:40 AM EDT documented as of this encounter Care Teams Safety Companion Relationship Specialty Start Date End Date Kira Robles MD [address] [place] [address] PCP - General Family Medicine 06/10/13 documented as of this encounter
--- OUTSIDE RECORDS SUMMARY | 2025-01-09 10:07 | XMS_ITS | Encounter Summary ---
Author Organization [facility] Address [address] [place] [address] Care Team Providers Care Blocker And Sewer Name Role Phone Kira Robles MD Primary Care Provider [phone] Encounter Details Date Type Department Care Team [...] Encounter - Legacy Conversion Provider - 12/20/2020 2:58 PM EDT Duplicate request, pharmacy already requested rx documented in this encounter Plan of Treatment Not on file documented as of this encounter Visit Diagnoses Not on filedocumented in this encounter Care Teams Blocker And Sewer Relationship Specialty Start Date End Date Kira Robles MD [address] [place], [place] [id number] PCP - General 03/27/18 documented as of this encounter
--- OUTSIDE RECORDS SUMMARY | 2025-01-09 10:07 | XMS_ITS | Encounter Summary ---
Author Organization [facility] Address [address] [place] [address] Care Team Providers Care Grain Elevator Agent Name Role Phone Kira Robles MD Primary Care Provider [phone] Encounter Details Date Type Department Care Team (Late st Contact Info) Description 04/14/2019 Legacy Encounter [facility] Dept Provider, Legacy [...] Telephone Encounter - Legacy Conversion Provider - 04/14/2019 9:36 AM EST Last OV: 03/18/19 Last RX: 11-11-18 Next scheduled apt: Visit date not found Medication pending EDT documented in this encounter Plan of Treatment Not on file documented as of this encounter Visit Diagnoses Not on filedocumented in this encounter Care Teams Grain Elevator Agent Relationship Specialty Start Date End Date Kira Robles MD [address] [place] [phone] PCP - General 03/27/18 documented as of this encounter
--- OUTSIDE RECORDS SUMMARY | 2025-01-09 10:07 | XMS_ITS | Encounter Summary ---
Author Organization [facility] Address [address] [place] [address] Care Team Providers Care Automatic Toe Laster Name Role Phone Kira Robles MD Primary Care Provider [phone] Encounter Details Date Type Department Care Team [...] Encounter - Legacy Conversion Provider - 09/01/2019 10:55 AM EDT Fosamax 70 mg [facility] Maintenance Topic Date Due ??? Hepatitis C screen 1950 ??? DTaP/Tdap/Td vaccine (1 - Tdap) 12/12/1967 ??? Diabetes screen 1988 ??? Shingles Vaccine (1 of 2) 1998 ??? Pneumococcal 65+ years Vaccine (1 of 1 - PPSV23) 03/18/2020 (Originally 2013) ??? Annual Wellness Visit (AWV) 01/11/2020 ??? Flu vaccine (Season Ended) 2020 ??? Potassium monitoring 04/21/2020 ??? Creatinine monitoring [...] baseline BP Readings from Last 3 Encounters: 06/16/19 130/80 04/28/19 128/70 03/18/19 134/80 (goal BP 120/80) All Future Testing planned in [facility]: Lab Frequency Next Occurrence Hemoglobin A1C Once 04/28/2019 TSH with Reflex Once 04/28/2020 CBC Auto Differential Once 04/28/2020 Comprehensive Metabolic Panel Once 04/28/2020 Vitamin D 25 Hydroxy Once 04/28/2020 Lipid Panel Once 04/28/2020 Magnesium Once 04/28/2020 EKG 12 Lead Once 04/28/2020 XR CHEST STANDARD (2 VW) Once 04/28/2020 Next Visit Date: Future Appointments Date Time Provider Department Center 09/17/2019 10:20 AM MD DEMETRA Roy [facility] 04/22/2020 11:30 AM Kyle Cabrera MD [place] [facility] Patient Active Problem List: HTN (hypertension) Hyperlipidemia [...] on filedocumented in this encounter Care Teams Automatic Toe Laster Relationship Specialty Start Date End Date Kira Robles MD [address] [place] [address] PCP - General 03/27/18 documented as of this encounter
--- OUTSIDE RECORDS SUMMARY | 2025-01-09 10:07 | XMS_ITS | Clinical Summary ---
Author Organization [facility] Address [address] [facility], [address] [place] [address] Care Team Providers Care Purchasing Associate Name Role Phone Kira Robles MD Primary Care Provider Allergies Active Allergy Reactions Criticality Noted Date Comments Penicillins Nausea And Vomiting Low 12/28/2010 Sulfa Antibiotics Nausea And Vomiting Low 1 Medications aspirin 81 MG EC tablet Take 1 tablet by mouth daily Active vitamin D (CHOLECALCIFEROL) 1000 UNIT TABS tablet Take 1 tablet by mouth daily Active hydroCHLOROthiazid e (HYDRODIURIL) 50 MG tablet Take 1 tablet by mouth daily 10/20/19 23 Active KLOR-CON/EF 25 MEQ disintegrating tablet DISSOLVE 1 TABLET IN AT LEAST 4 OUNCES OF COLD WATER AND DRINK BY MOUTH 2 TIMES A DAY 03/28/20 23 Active lisinopril (PRINIVIL;ZESTRIL) 5 MG tablet Take 1 tablet by mouth daily 90 tablet 3 04/28/20 24 Active dilTIAZem (CARDIZEM CD) 120 MG extended release capsule Take 1 capsule by mouth daily 90 capsule 3 04/28/20 24 Active allopurinol (ZYLOPRIM) 100 MG tablet Take 1 tablet by mouth daily 90 tablet 1 08/12/19 25 Active alendronate (FOSAMAX) 70 MG tablet take 1 tablet by mouth every 7 days with a glass of water. take first thing in the morning 30 minutes before first food or other medication 12 tablet 3 08/12/19 25 Active potassium chloride (KLOR-CON M) 20 MEQ extended release tablet Take 1 tablet by mouth 2 times daily 180 tablet 3 10/01/19 25 Active Additional Information Patient not taking.Reported on 10/30/2024 metoprolol tartrate (LOPRESSOR) 50 MG tablet Take 1 tablet by mouth 2 times daily 180 tablet 3 11/18/19 25 Active Active Problems Problem Noted Date Diagnosed Date Vitamin D deficiency disease 09/29/2016 Rectal polyp 06/14/2015 Diverticulosis 06/14/2015 Osteoporosis 05/12/2015 Mitral regurgitation 12/04/2013 Atypical hyperplasia of breast 12/24/2012 Cyst of breast, left, solitary 11/11/2012 HTN (hypertension) 12/28/2010 Hyperlipidemia 12/28/2010 Kidney stones 12/28/2010 Permanent atrial fibrillation Resolved Problems Problem Noted Date Diagnosed Date Resolved Date Chronic kidney disease, stage 5 10/20/2020 10/20/2020 Encounter for screening colonoscopy 06/14/2015 02/14/2018 Atrial fibrillation 12/28/2010 06/26/19 Sepsis due to urinary tract infection 12/28/2010 11/03/2022 Overview (01/25/2015): replace inactive diagnosis Palpitations 05/08/2016 Hypertension 05/12/2015 Encounters Date Type Department Care Team Description 11/17/2024 Refill [facility] English Division Chair [address] [place] [phone] Kyle Cabrera MD Medication Refill 10/30/2024 8:20 AM EDT Office Visit [facility] [place] [address] [place] [phone] Kira Robles MD Permanent atrial fibrillation (HCC) (Primary Dx); Primary hypertension; Gastroesophageal reflux disease without esophagitis; Pure hypercholesterolemia; Age-related osteoporosis without current pathological fracture; Actinic keratosis; Itching from Last 3 Months Immunizations Immunization Administration Dates Next Due COVID-19, RAVIN moy, Primary or Immunocompromised, (age 12y+), IM, 100 mcg/0.5mL 04/19/2021,04/18/2021,08/23/2020,2020 Influenza Virus Vaccine 02/16/2022 Influenza, FLUAD, (age 65 y+ ), IM, Quadv, 0.5mL 04/16/2023,02/16/2022 Pneumococcal, PCV20, PREVNAR 20, (age 6w+), IM, 0.5mL 01/09/2022 Pneumococcal, PPSV23, PNEUMO VAX 23, (age 2y+), SC/IM, 0.5mL 02/18/2020 RSV, AREXVY, (age 60y+), PF, IM, 0.5mL 01/17/2024 TDaP, ADACEL (age 10y-64y), BOOSTRIX (age 10y+), IM, 0.5mL 06/30/2022 Zoster Recombinant (Shingrix) 04/29/2021, 021,02/07/2021 Family History Medical History Relation Name Comments Heart Attack Brother 1 61 Other Brother 2 51 AAA Clotting Disorder Brother 3 Diabetes Brother 3 Heart Disease Brother 3 Hypertension Brother 3 Kidney Cancer Brother 3 Stroke Father 81 Breast Cancer Mother 80 Cancer Mother 80 walstroms dx High Blood Pressure Mother 80 Liver Disease Sister 1 45 Breast Cancer Sister 2 72 Cancer Sister 2 72 Relation Name Status Comments Brother 1 61 Brother 2 51 Brother 3 Brother 4 Brother 5 Brother 6 Brother 7 Alive Father 81 Maternal Grandfather Maternal Grandmother Mother [...] drink = 0.6 oz pur e alcohol) [facility] Utilities Answer Date Recorded In the past 12 months has [facility], [employer], oil, or water [employer] threatened to shut off services in your [...] place to sleep or slept in a longterm (including now)? No 10/30/2023 Housing Stability Vital Sign Answer Christophe e Recorded In the last 12 months, was t here a time when you were not able to pay the mortgage or rent on time? No 10/30/2024 In the past 12 months, how m any times have you moved where you were living? 0 10/30/2024 At any time in the past 12 m [facility], were you homeless or living in a longterm (including now)? No 10/30/2024 Food Insecurity Answer [...] Sign Reading Time Taken Comments Blood Pressure 130/80 10/30/2024 8:14 AM EDT Pulse 60 10/30/2024 8:14 AM EDT Temperature 36.7 C (98.1 F) 11/06/2023 1:33 PM EDT Respiratory Rate 16 09/28/2015 8:55 AM EDT Oxygen Saturation 93% 10/30/2024 8:14 AM EDT Inhaled Oxygen Concentration - - Weight 83.9 kg (185 lb) 10/30/2024 8:14 AM EDT Height 157.5 cm (5' 2 ) 10/30/2024 8:14 AM EDT Body Mass Index 33.84 10/30/2024 8:14 AM EDT Plan of Treatment Upcoming Encounters Date Type Department Care Team (Late st Contact Info) Description 04/06/2025 10:30 AM EST Office Visit [facility] English Division Chair [address] [place] [phone] Shar Frias DO [address] [place] [address] 1 yr f/u 05/04/2025 8:00 AM EST Office Visit [facility] [place] [address] [place] [phone] Kira Robles MD [address] [place] [address] Return in about 6 months (around 05/01/2025) for HTN, Hyperlipidemia, gerd, afib, osteoporosis and medicare. Health Maintenance Due Date Last Done Comments Hepatitis C screen 1968 COVID-19 Vaccine ( season) 2024 04/16/2023, 02/16/2022, 04/19/2021, Additional history exists Flu vaccine (#1) 12/19/2024 04/16/2023, , 02/16/2022 Annual Wellness Visit (Medicare) 05/02/2025 05/01/2024, 04/30/2023, 04/26/2022, Additional history exists Depression Screen 10/30/2025 10/30/2024, 10/30/2024 DTaP/Tdap/Td vaccine (2 - Td or Tdap) 06/30/2032 06/30/2022 Colonoscopy Discontinued 06/14/2015, 06/14/2015 Colorectal Cancer Screen Discontinued DEXA (modify frequency per FRAX score) Completed 01/14/2020, 03/23/2014 A1C test (Diabetic or Prediabetic) Discontinued 04/25/2021, 04/13/2020 Diabetes screen Discontinued 04/25/2021, 04/13/2020 Shingles vaccine Completed 04/29/2021, , 02/07/2021 Pneumococcal 50+ years Vaccine Completed 01/09/2022, 02/18/2020 Respiratory Syncytial Virus (RSV) or age 60 yrs+ Completed 01/17/2024 Breast cancer screen Discontinued 03/13/2024, 03/09/2023, 03/06/2022, Additional history exists Lipids Discontinued 04/01/2024, 03/22, 04/11/2022, Additional history exists FIT/FOBT: Average risk Discontinued Fecal-DNA (Cologuard): Average risk Discontinued Hepatitis A vaccine Aged Out No longe r eligible based on patient's age to complete this topic Hepatitis B vaccine Aged Out No longe r eligible based on patient's age to complete this topic Hib vaccine Aged Out No longer eligi ble based on patient's age to complete this topic Meningococcal (ACWY) vaccine Aged Out No longer eligible based on patient's age to complete this topic Meningococcal B vaccine Aged Out No l onger eligible based on patient's age to complete this topic Polio vaccine Aged Out No longer elig ible based on patient's age to complete this topic Sigmoidoscopy/CT colonography Discontinued Procedures Procedure Name Priority Date/Time Associated Diagnosis Comments DESTRUC BENIGN LESION, UP TO 14 LESIONS Routine 10/30/2024 8:42 AM EDT Actinic keratosis LIPID PANEL Routine 04/01/2024 8:11 AM EST Paroxysmal atrial fibrillation (HCC) Mitral valve insufficiency, unspecified etiology Mixed hyperlipidemia Primary hypertension Vitamin D deficiency disease JAMES KRISSY DIGITAL SCREEN BILATERAL Routine 03/13/2024 11:00 AM EDT Visit for screening mammogram POCT GLYCOSYLATED HEMOGLOBIN (HGB A1C) Routine 04/25/2021 12:27 PM EST Hyperglycemia DEXA BONE DENSITY 2 SITES Routine 01/14/2020 9:40 AM EDT Age-related osteoporosis without current pathological fracture COLONOSCOPY Routine 06/14/2015 Colon cancer screening from Last 3 Months or Most Recently Relevant to Health Maintenance Results * (ABNORMAL) Lipid Panel (04/01/2024 8:11 AM EST) Cholesterol, Total 181 0 - 199 mg/dL 04/01/2024 8:11 AM [facility] Comment: Cholesterol Guidelines: <200 Desirable 200-240 Borderline >240 Undesirable HDL 48 >40 mg/dL 04/01/2024 8:11 AM [facility] Comment: HDL Guidelines: <40 Undesirable 40-59 Borderline >59 Desirable LDL Cholesterol 112(H) 0 - 100 mg/dL 04/01/2024 8:11 AM [facility] Comment: LDL Guidelines: <100 Desirable 100-129 Near to/above Desirable 130-159 Borderline >159 Undesirable Direct (measured) LDL and calculated LDL are not interchangeable tests. Chol/HDL Ratio 3.8 04/01/2024 8:11 AM EST St[facility] Triglycerides 106 <150 mg/dL 04/01/2024 8:11 AM [facility] Comment: Triglyceride Guidelines: <150 Desirable 150-199 Borderline 200-499 High >499 Very high Based on AHA Guidelines for fasting triglyceride, February 2012. VLDL 21 1 - 30 mg/dL 04/01/2024 8:11 AM [facility] Blood BLOOD SPECIMEN / Unknown 04/01/2024 8:11 AM EST 04/01/2024 8:12 AM EST Kyle Cabrera MD CHEMISTRY ORDERABLES Final Res ult [facility] [address] [place] [address], [facility] [phone] [facility] [employer] [address] [place] [address], [facility] [phone] * JAMES KRISSY DIGITAL SCREEN BILATERAL (03/13/2024 11:00 AM EDT) Anatomical Region Laterality Modality Breast Bilateral Mammography 03/13/2024 11:0 0 AM EDT Impressions 03/18/2024 4:34 PM EDT OVERALL ASSESSMENT: BIRADS: 1 Negative, no evidence of malignancy. A letter of notification will be mailed to the patient. Performing Facility: [facility] [address] [place] [address] Narrative 03/18/2024 4:34 PM EDT HISTORY: Screening. Family history of breast carcinoma. Prior negative left breast biopsy. TECHNIQUE: Bilateral digital screening mammogram with CAD. Digital breast tomosynthesis imaging. FINDINGS: Two views of each breast were obtained. There are scattered areas of fibroglandular density. BREAST DENSITY CODE: S: Scattered No change from prior studies, most recent 03/09/2023. Suspicious calcifications: None. Suspicious mass: None. (If skin markers were applied, circles represent skin lesions and linear markers represent scars.) Kira Robles MD IMG MAMMOGRAPHY ORDERABLES Fi nal Result * POCT glycosylated hemoglobin (Hb A1C) (04/25/2021 12:27 PM EST) Hemoglobin A1C 5.7 % BLOOD SPECIMEN / Unknown 04/25/2021 12:27 PM EST Kira Robles MD POINT OF CARE TEST ORDERABLES Final Result * DEXA BONE DENSITY 2 SITES (01/14/2020 9:40 AM EDT) Anatomical Region Laterality Modality Radiographic Teresita ging 01/14/2020 9:43 AM EDT Impressions 01/14/2020 10:52 AM EDT [...] DXA scan lumbar spine and bilateral hips. [employer] scanner serial #[id number] FINDINGS: Prominent degenerative change lumbar spine. L1 [...] T-score of -2.2, previously -2.4. Procedure Note Navid Armstrong Jr., MD - 01/14/2020 EXAM: DEXA BONE DENSITY 2 SITES HISTORY: Reason for exam:->screening. 69-year-old female. COMPARISON: 03/23/2014 DXA scan showed osteoporosis in the left femoralneck TECHNIQUE: DXA scan lumbar spine and bilateral hips. [employer] ResilientFscanner serial #[id number] FINDINGS: Prominent degenerative change lumbar spine. L1 [...] and hip fracture risk is 3.2%. us Kira Robels MD IMG DEXA ORDERABLES Final Res ult * HM COLONOSCOPY (06/14/2015) Narrative Walt Bonifacio - 06/14/2015 PERIOPERATIVE RECORD PROCEDURAL ENDOSCOPY AT [facility] INTRAOPERATIVE RECORD PATIENT NAME: SAPNA BREEN GENDER: Bang DATE: 1950 AGE: 64 Years ACTUAL CASE START: 06/14/2015 09:15 PATIENT INFORMATION PATIENT IDENTIFICATION: ARMBAND CHART CASE GENERAL INFORMATION ACTUAL OR: ENDOSCOPY ROOM 1 AT PROCEDURE CONSENT ON CHART: Yes HISTORY / PHYSICAL ON CHART: Yes SITE MARKED / PROCEDURE AGREES WITH: SURGERY SCHEDULE: Yes SURGERY CONSENT: Yes HISTORY PHYSICAL: Yes PER DOCTOR'S ORDER: Yes PREOP ANTIBIOTIC CASE SERVICE: GENERAL SURGERY CASE TYPE: SCHEDULED PATIENT TYPE: AMBULATORY SURGERY CASE WOUND CLASS: CLASS II / CLEAN-CONTAMINATED PREOP DIAGNOSIS: SCREENING POSTOP DIAGNOSIS: SAME. RECTAL POLYP X 1, EARLY SIGMOID DIVERTICULOSIS. PATIENT ALLERGIES ALLERGEN:SULFA (SULFONAMIDES) [ ] IRRIGATION PUMP INSTALLER VALIDATED STATUS:Confirmed or verified ALLERGEN TYPE:Drug REACTION:NAUSEA, VOMITTING SEVERITY:Mild SENSITIVITY:Allergy REPORTED DATE/TIME:12/10/2012 09:54 ALLERGEN:PENICILLINS [ ] IRRIGATION PUMP INSTALLER VALIDATED STATUS:Confirmed or verified ALLERGEN TYPE:Drug REACTION:NAUSEA, VOMITTING SEVERITY:Mild SENSITIVITY:Allergy REPORTED DATE/TIME:12/10/2012 09:54 PATIENT ASSESSMENT LOCAL AREA NETWORK SYSTEMS ADMINSTRATOR INTERVIEW: 08:45 : METHOD: Stated NPO COMMENT: NPO since midnight as stated by the patient. DATE/TIME: 06/14/2015 08:47 SKIN CONDITION: WARM, DRY, AND INTACT PATIENT LIMITATIONS: NO LIMITATIONS CASE STAFF Page 1 of 5 on 06/14/2015 11:19 PATIENT NAME: SAPNA BREEN GENDER: F DATE: 1950 AGE: 64 Years ACTUAL CASE START: 06/14/2015 09:15 NAME:NEGAR NELSON CRNA ROLE:ANESTHESIA SLEEP LAB TECHNOLOGIST TIME IN: 06/14/2015 09:04 : NAME:TERRELL COX LAUREN ROLE:SCRUB CRYPTOGRAPHIC TECHNICIAN TIME IN: 06/14/2015 09:04 : NAME:NADER FARRELL RN ROLE:LOCAL AREA NETWORK SYSTEMS ADMINSTRATOR TIME IN: 06/14/2015 09:04 : NAME:ARIADNA WINN MD ROLE:SURGEON TIME IN: 06/14/2015 09:04 : CASE ANESTHESIA INFORMATION ANESTHESIA TYPE: MONITORED ANESTHESIA CARE ASA CLASSIFICATION: ASA 3 IV ASSESSMENT DATE/TIME: 06/14/2015 08:47 TYPE: PROTECT IV ANATOMICAL SITE: HAND RIGHT SIZE: 20 STATUS: WITHIN NORMAL LIMITS ASSESSMENT: INFUSING INSERTED/ASSESSED BY: NADER FARRELL RN TIMES SCHED CASE START: 06/14/2015 08:50 SCHED CASE STOP: 06/14/2015 09:26 PATIENT OR IN: 06/14/2015 09:04 PATIENT OR OUT: 06/14/2015 09:41 ACTUAL CASE START: 06/14/2015 09:15 ACTUAL CASE STOP: 06/14/2015 09:37 SURGICAL SAFETY CHECKLIST BEFORE INDUCTION OF ANESTHESIA DATE/TIME: 06/14/2015 08:49 PATIENT HAS CONFIRMED IDENTITY, SITE, PROCEDURE, CONSENT AND SITE MARKED IF APPLICABLE: Yes FIRE RISK CHECK COMPLETED FOR PRESENCE OF O2, HEAT SOURCE, FLAMMABLE LIQUIDS,AND PROCEDURE NEAR OROPHARYNX: Yes ANESTHESIA SAFETY EQUIPMENT AND MEDICATION CHECK COMPLETED BY ANESTHESIA PROVIDER: Yes PULSE OXIMETER ON PATIENT AND FUNCTIONING: Yes PATIENT ALLERGIES REVIEWED AND CONFIRMED: Yes DIFFICULT AIRWAY/ASPIRATION RISK: No IF YES, EQUIPMENT/ASSISTANCE AVAILABLE RISK OF >500ML BLOOD LOSS (7ML/KG IN CHILDREN) IF YES BLOOD PRODUCTS AVAILABLE: No BEFORE SKIN INCISION DATE/TIME: 06/14/2015 09:06 ALL TEAM MEMBERS HAVE INTRODUCED THEMSELVES BY NAME AND ROLE: Yes SURGEON, ANESTHESIA, AND NURSE VERBALLY CONFIRMED PATIENT, SITE, AND PROCEDURE: Yes Page 2 of 5 on 06/14/2015 11:19 PATIENT NAME: SAPNA BREEN GENDER: F DATE: 1950 AGE: 64 Years ACTUAL CASE START: 06/14/2015 09:15 SURGEON REVIEWED CRITICAL OR UNEXPECTED STEPS, OPERATIVE DURATION, AND ANTICIPATED BLOOD LOSS: Yes ANESTHESIA HAS REVIEWED PATIENT SPECIFIC CONCERNS: Yes NURSING TEAM REVIEWED EQUIPMENT ISSUES/CONCERNS AND CONFIRMED STERILITY, INCLUDING INDICATOR: Yes ANTIBIOTIC PROPHYLAXIS HAS BEEN GIVEN WITHIN THE LAST 60 MINUTES: Not Applicable ESSENTIAL IMAGING DISPLAYED: Yes BEFORE PATIENT LEAVES OPERATING ROOM DATE/TIME: 06/14/2015 09:37 NURSE VERBALLY CONFIRMED WITH THE TEAM: NAME OF PROCEDURE RECORDED: Yes SPECIMEN:IF OBTAINED, IS IDENTIFIED AND LABELED INCLUDING PATIENT NAME: Yes SURGEON, ANESTHESIA AND NURSE REVIEWED CROOK CONCERNS FOR RECOVERY AND MANAGEMENT OF PATIENT: Yes PROCEDURE GENERAL INFORMATION ACTUAL PROCEDURE: COLONOSCOPY WITH PHOTOS, POLYPECTOMY X 1. TIME OUT DATE/TIME: 06/14/2015 09:13 CORRECT PATIENT: Yes CORRECT SITE: Yes CORRECT PROCEDURE: YES CORRECT PROCEDURE CONSENT FORM: YES CORRECT POSITION: YES CORRECT IMAGE/RESULTS: YES CORRECT ANTIBIOTIC/IRRIGATION FLUIDS ADMINISTERED: YES SAFETY PRECAUTIONS: YES CORRECT EQUIPMENT: YES ACTUAL PROCEDURE START (INCISION TIME): 06/14/2015 09:15 ACTUAL PROCEDURE STOP (CLOSURE TIME): 06/14/2015 09:37 PRIMARY SURGEON: ARIADNA WINN MD PROCEDURE SERVICE: GENERAL SURGERY PROCEDURE POSITIONAL DEVICES POSITION FOR SURGERY: LATERAL LEFT - LEFT SIDE DOWN POSITIONED BY: OR, TEAM TABLE: STRETCHER POSITIONAL DEVICES: PILLOW(S) SITE: ARMS BILATERAL POSITIONAL DEVICES: BLANKET(S) SITE: KNEES BILATERAL POSITIONAL DEVICES: SAFETY STRAP SITE: ILIAC RIGHT CREST POSITIONING COMMENTS: PILLOW BETWEEN ARMS, BLANKET BETWEEN LEGS, SAFETY STRAP ACROSS TORSO PROCEDURE COUNTS [ ] X-RAY TAKEN [ ] PHYSICIAN NOTIFIED PROCEDURE EQUIPMENT Page 3 of 5 on 06/14/2015 11:19 PATIENT NAME: SAPNA BREEN GENDER: F DATE: 1950 AGE: 64 Years ACTUAL CASE START: 06/14/2015 09:15 DESCRIPTION:ESU3 ENDO SETTIN/20 SITE: THIGH RIGHT LATERAL ADMINISTERED BY:JAMI BARRAZA, NADER AGUERO COMMENT:BOVIE SKIN SITE CLEAR PREOPEARTIVE. BOVIE SKIN SITE CLEAR POST OPERATIVE ON RIGHT LATERAL THIGH. CASE SPECIMENS SPECIMEN: RECTAL POLYP TYPE: PATHOLOGY SITE: RECTUM DISPOSITION: LAB PICK-UP POINT TRANSPORTED BY: NADER FARRELL RN PATIENT IDENTIFICATION: ARMBAND PATIENT IDENTIFICATION: ACCOUNT NUMBER PNDS O2 The patient is free from signs and symptoms of injury due to extraneous objects. INDICATORS: C152 Skin condition (general): smooth, intact, and free from ecchymosis, redness, cuts, abrasions, shear injury, hives, rash, or blistering. Met:Yes INTERVENTION:122 Supl/Equip Safe Parameter Uses supplies and equipment within safe parameters. Ensures that use of supplies, equipment, and instruments does not compromise patient safety. [X] Performed ACTIVITY:Operates equipment according to manufacturers' instructions. [X] Performed INTERVENTION:152 Eval Sign/Sympt SkinT Inj Evaluates for signs and symptoms of physical injury to skin and tissue. Observes for signs and symptoms of physical injury to skin and tissue acquired from extraneous objects. [X] Performed ACTIVITY:Assess risk of fire due to flammable liquids, electrosurgical, laser, or an other contributor devices, assess presence of O2 and Nitrous Oxide, and if procedure is near oropharynx [X] Performed ACTIVITY:Evaluates skin integrity. [X] Performed ACTIVITY:Assesses circulation, sensation, and motion of extremities. [X] Performed FAMILY NOTIFICATION DATE/TIME: 06/14/2015 09:10 SPOKE WITH: WILL SPEAK TO PATIENT'S SPOUSE AFTER THE PROCEDURE. Page 4 of 5 on 06/14/2015 11:19 PATIENT NAME: SAPNA BREEN GENDER: F DATE: 1950 AGE: 64 Years ACTUAL CASE START: 06/14/2015 09:15 CASE OUTCOME/DISCHARGE LEVEL OF CONSCIOUSNESS: SEDATED TRANSFER REPORT TIME: 06/14/2015 09:41 REPORT GIVEN BY: NEGAR NELSON CRNA VERBAL REPORT GIVEN TO: BONIFACIO REBOLLEDO RN TRANSFERRED TO: PHASE I ROOM NUMBER: PACU- BAY 2 TRANSFERRED BY: NADER FARRELL RN, KELLIE CRNA TRANSFER MODE: CART DISCHARGE FROM OR WITH: SIGNATURE INTRAOP NURSE: NADER FARRELL RN Page 5 of 5 on 06/14/2015 11:19 Kira Robles MD HEALTH MAINTENANCE Final Resu lt from Last 3 Months or Most Recently Relevant to Health Maintenance Additional Health Concerns Infection Onset Date Last 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 10/2023, 02/202410/08/2023 10/08/2023 Insurance [employer] MEDICARE SUPP MEDICARE [employer] MEDICARE SUPP Member Subscriber Plan / Payer (Ef fective 2014-Present) Name:Sapna Breen Relation to Subscriber:Self Name:Sapna Breen Payer ID:[id number] (NAIC) Group ID:Plan N Type:Not on file Address: [address] [address] Advance Directives * Full Code (Latest Code Status on File) Date Activated Date Inactivated Comments 06/14/2015 10:10 AM 06/14/2015 1:00 PM * Full Code Date Activated Date Inactivated Comments 06/14/2015 8:09 AM 06/14/2015 10:10 AM * Full Code Date Activated Date Inactivated Comments 12/10/2012 7:01 AM 12/10/2012 5:08 PM Healthcare Agents on File Name Relationship Healthcare Agent Relationship Communication Cledith Kaye Spouse Primary Decision Maker Care Teams Purchasing Associate Relationship Specialty Start Date End Date Kira Robles MD [address] [place] [address] PCP - General Family Medicine 06/10/13
--- OUTSIDE RECORDS SUMMARY | 2025-01-09 10:08 | XMS_ITS | CCD ---
Author Organization [facility] CliniSypr Care Team Providers Care Grain [employer] Products Inspector Name Role Phone Medardo Robles Primary Care Provider [phone] SANDRA, DR RAMOS Admitting Unavailable MISC, DR AVILA Primary Care Unavailable SANDRA, DR RAMOS Attending Unavailable SANDRA, DR RAMOS Consulting Unavailable MISC, DR AVILA Primary Care Unavailable SANDRA, DR RAMOS Attending Unavailable SANDRA, DR RAMOS Consulting Unavailable SANDRA, DR RAMOS Admitting Unavailable ZIEBER, DR ANDREW Peña Consulting Unavailable Conner SAMSON, Medardo Rubio Primary Care Provider Medardo Robles MD Primary Care Provider Medardo Robles MD Primary Care Provider Medardo Robles MD Primary Care Provider ADELE ATISH P Admitting Unavailable MEDARDO ROBLES Primary Care Unavailable Medardo Robles MD Primary Care Provider MEDARDO ROBLES Primary Care Physician ADELE, ATISH P Referring Unavailable ADELE, ATISH P Attending Unavailable MEDARDO ROBLES Primary Care Unavailable MEDARDO ROBLES Primary Care Unavailable MEDARDO ROBLES Primary Care Unavailable MEDARDO ROBLSE Primary Care Unavailable ADELE, ATISH P Attending Unavailable ADELE, ATISH P Admitting Unavailable MEDARDO ROBLES. Primary Care Unavailable Rachel FLORES Attending Unavailable Rachel FLORES Attending Unavailable Francisco Javier, Lashaun J Admitting Unavailable GalLashaun sauer J Attending Unavailable Rachel FLORES Attending Unavailable MEDARDO ROBLES Referring Unavailable MEDARDO ROBLES Primary Care Unavailable JESSICA COOPER Referring Unavailable VERHOFF, MEDARDO L Primary Care Unavailable RACHEL FLORES Referring Unavailable VERHOFF, MEDARDO L Primary Care Unavailable VIGESAA, KYLE S Referring Unavailable VERHOFF, MEDARDO L Primary Care Unavailable JESSICA COOPER Referring Unavailable VERHOFF, MEDARDO L Primary Care Unavailable VIGESAA, KYLE S Referring Unavailable VERHOFF, MEDARDO L Primary Care Unavailable VIGESAA, KYLE S Referring Unavailable VERHOFF, MEDARDO L Primary Care Unavailable VIGESAA, KYLE S Referring Unavailable VERHOFF, MEDARDO L Primary Care Unavailable GARIMA CALVERT Referring Unavailable VERHOFF, MEDARDO L Primary Care Unavailable RACHEL FLORES Referring Unavailable VERHOFF, MEDARDO L Primary Care Unavailable VERHOFF, MEDARDO L. Primary Care Unavailable XIMENA ARCHULETA Attending Unavailable VERHOFF, MEDARDO L. Primary Care Unavailable XIMENA ARCHULETA Attending Unavailable Rachel FLORES Attending Unavailable FEMI LOGAN Attending Unavailable FEMI LOGAN Admitting Unavailable FEMI LOGAN Attending Unavailable Allergies Allergy Classification Reported Allergen(s) Allergy Type Date of Onset Reaction(s) Facility (20 sources) Penicillins; Translations: [PENICILLINS] Propensity to adverse reactions to drug 1 Nausea And Vomiting, Unknown (qualifier value), Other (See Comments) [place], [place] (16 sources) Sulfonamides (Antibiotic) Propensity to adverse reactions to drug 1 Nausea And Vomiting [place], [place] (1 source) Penicillin Drug Allergy 7 [facility] (1 source) Sulfonamides (Antibiotic) Drug allergy (disorder) 7 [facility] (20 sources) Penicillins Propensity to adverse reactions to drug 1 Other (See Comments), Nausea And Vomiting [facility] (20 sources) Sulfonamides (Antibiotic); Translations: [SULFA (SULFONAMIDE ANTIBIOTICS)] Propensity to adverse reactions to drug 1 Other (See Comments), Nausea And Vomiting [facility] (8 sources) Sulfonamides (Antibiotic); Translations: [sulfa drugs] Drug allergy Unknown (qualifier value) [facility] (2 sources) Penicillin; Translations: [penicillins] Drug Allergy Unknown (qualifier value) [facility] Medications Current Medications Medication Drug Class(es) Dates Sig (Normalized) Sig (Original) alendronic acid 70 mg oral tablet (20 sources) Bisphosphonate Start: 04-14-2019 alendronate 70 mg oral tablet 70 mg = 1 tab(s), Oral, q7day, # 4 tab(s), Refills(s) 0 Start Date: 05/19/19 Status: Ordered allopurinol 100 mg oral tablet (20 sources) Xanthine Oxidase Inhibitor Start: 02-18-2024 take 1 tablet by mouth once daily allopurinol (ZYLOPRIM) 100 MG tablet Take 1 tablet by mouth daily 90 tablet 1 02/18/2024 Active Start: 06-16-2019 End: 09-15-2022 take 1 tablet [...] 10/20/2020 Active cephalexin 500 mg oral capsule (5 sources) Cephalosporin Antibacterial Start: 11-06-2023 take 1 capsule by mouth twice daily cephALEXin (KEFLEX) 500 MG capsule Indications: Acute cystitis with hematuria Take 1 capsule by mouth 2 times daily 14 capsule 11/06/2023 Active End: 11-13-2022 take 4 capsules by mouth [...] capsule (20 sources) Calcium Channel Brice Start: 04-28-2024 take 1 capsule by mouth once daily dilTIAZem (CARDIZEM CD) 120 MG extended release capsule Take 1 capsule by mouth daily 90 capsule 3 04/28/2024 Active Start: 04-26-2023 take 1 capsule by mo [facility] once daily dilTIAZem (CARDIZEM CD) 120 MG extended release capsule Take 1 capsule by mouth daily 90 capsule 3 04/26/2023 Active Start: 05-19-2019 Cartia XT 120 mg/24 hours [...] Active Start: 07-11-2021 take 1 capsule by [facility] once daily doxycycline hyclate 100 mg Cap 100 mg = 1 cap(s), Oral, Daily, Take 1 pill the day before the procedure and 1 pill after the procedure, # 2 cap(s), Refills(s) 0, Pharmacy: [facility], 163, cm, 07/11/21 11:42:00 EST, Height/Length Dosing, 84.1, kg, 07/11/21 11:42:00 E... Start Date: 07/11/21 Status: Ordered hydroCHLOROthiazide 50 mg oral tablet (20 sources) Thiazide Diuretic Start: 06-23-2024 take 1 tablet by mouth once daily hydrochlorothiazide 50 mg Tab 50 mg = 1 tab(s), Oral, Daily, # 90 tab(s), Refills(s) 3, Pharmacy: [facility], 163, cm, 06/23/24 9:52:00 EST, Height/Length Dosing, 82, kg, 06/23/24 9:52:00 EST, Weight Dosing Start Date: 06/23/24 Status: Ordered Start: 07-11-2021 take 1 tablet by lupe th once daily hydroCHLOROthiazide (HYDRODIURIL) 50 MG tablet Take 1 tablet by mouth daily 10/19/2022 Active Start: 01-11-2015 End: 09-15-2022 take 1 tablet by mouth once daily hydrochlorothiazide 25 mg Tab 25 mg = 1 tab(s), Oral, Daily, # 90 tab(s), Refills(s) 3, Pharmacy: [facility], 163, cm, 04/04/21 11:03:00 EST, Height/Length Dosing, 84, kg, 04/04/21 11:03:00 EST, Weight Dosing Start Date: 04/04/21 Status: Ordered lisinopril 5 mg oral tablet (20 sources) Angiotensin Converting Enzyme Inhibitor Start: 08-26-2018 End: 09-15-2022 take 1 tablet by mouth once daily lisinopril (PRINIVIL;ZESTRIL) 5 MG tablet Take 1 tablet by mouth daily 90 tablet 3 04/28/2024 Active metoprolol tartrate 50 mg oral tablet (20 sources) beta-Adrenergic Brice Start: 12-03-2023 take 1 tablet by mouth twice daily metoprolol tartrate (LOPRESSOR) 50 MG tablet Take 1 tablet by mouth 2 times daily 180 tablet 3 12/03/2023 Active Start: 05-19-2019 take 1 tablet by lupe th twice daily metoprolol 50 mg ER Tab [...] day(s), # 14 cap(s), Refills(s) 0, Pharmacy: [facility], 163, cm, 11/16/23 10:15:00 EDT, Height/Length Dosing, 82.7, kg, 11/16/23 10:15:00 EDT, Weight Dosing Start Date: 12/24/23 Stop Date: 12/31/23 Status: Ordered potassium bicarbonate 25 meq effervescent oral tablet (7 sources) Start: 03-28-2023 KLOR-CON/EF 25 MEQ disintegrating tablet DISSOLVE 1 TABLET IN AT LEAST 4 OUNCES OF COLD WATER AND DRINK BY MOUTH 2 TIMES A DAY 03/28/2023 Active Start: 11-01-2021 take 1 tablet by lupe th twice daily potassium bicarbonate 20 mEq oral tablet, effervescent 20 mEq = 1 tab(s), Oral, BID, # 60 tab(s), Refills(s) 11, [facility], cm, 07/26/21 10:30:00 EST, Height/Length Dosing, 84.1, kg, 07/11/21 11:42:00 EST, Weight Dosing Start Date: 11/01/21 Status: Ordered microencapsulated potassium chloride 20 meq extended release oral tablet (20 sources) Start: 12-03-2023 take 1 tablet by mouth twice daily potassium chloride (KLOR-CON M) 20 MEQ extended release tablet Take 1 tablet by mouth 2 times daily 180 tablet 3 12/03/2023 Active Start: 01-18-2022 End: 09-15-2022 20 mEq, Oral, Daily, First d ose on Emily 09/14/22 at 1700 DO NOT CRUSH OR CHEW (if instructed may dissolve tablet(s) in liquid) DO NOT ADMINISTER DISSOLVED TABLET VIA SURGICALLY PLACED TUBE OR TUBE less than 14 Wallis[place]. To administer dissolved tablet(s) mix with 4 [...] day . 0 09/07/2023 Discontinued (Formulary change) rivaroxaban 20 mg oral tablet (20 sources) [...] hour 50 mL/hr, Intravenous, Continuous, Starting on Emily 4/27/23 at 1515, PACU (only) cholecalciferol 0.025 mg oral tablet (20 sources) Vitamin D Start: 09-14-2022 End: 09-15-2022 take 1000 [IU] by mouth once daily 1,000 Units, Oral, Daily, First dose on Sun09/14/22 at 1700 50 ml clindamycin 18 mg/ml injection (2 sources) Lincosamide Antibacterial Start: 09-14-2022 End: 09-14-2022 900 mg, Intravenous, at 100 mL/hr, Once, On Sun09/14/22 at 1700, For 1 dose Initiate 6 hours after start of pre-procedure dose. Indication (POST PROCEDURE): Cardiothoracic Start: 09-14-2022 End: 09-15-2022 clindamycin (CLEOCIN) IVPB 9 00 mg (premix) K-Effervescent 25 mEq oral tablet, effervescent (5 sources) Start: 06-23-2024 take 1 tablet by mouth twice daily K-Effervescent 25 mEq oral tablet, effervescent 25 mEq = 1 tab(s), Oral, BID, MELVIN, # 60 tab(s), Refills(s) 11, Pharmacy: [facility], 163, cm, 06/23/24 9:52:00 EST, Height/Length Dosing, 82, kg, 06/23/24 9:52:00 EST, Weight Dosing Start Date: 06/23/24 Status: Ordered Start: 11-16-2023 take 1 tablet by lupe th twice daily K-Effervescent 25 mEq oral tablet, effervescent 25 mEq = 1 tab(s), Oral, BID, MELVIN, # 60 tab(s), Refills(s) 11, [id number], 163, cm, 11/16/23 10:15:00 EDT, Height/Length Dosing, 82.7, kg, 11/16/23 10:15:00 EDT, Weight Dosing Start Date: 11/16/23 Status: Ordered 1000 ml sodium chloride 9 mg/ml injection (3 sources) Start: 09-14-2022 End: 09-15-2022 take 75 mL intravenously every hour 75 mL/hr, Intravenous, Continuous, Starting on Sun09/14/22 at 1615, For 4 hours Start: 09-14-2022 End: 09-15-2022 sodium chloride 0.9% (NS) Problems Active Problems Problem Classification Problem Date Documented Date Episodic/Chronic Calculus of urinary tract (20 sources) Kidney stone; Translations: [Calculus of kidney] Onset: 12-28-2010 12-28-2010 Episodic Cardiac dysrhythmias (20 sources) Atrial fibrillation; Translations: [Unspecified atrial fibrillation] Onset: 12-28-2010 Resolved: 06-26-2023 12-28-2010 Chronic Chronic kidney disease (13 sources) Chronic kidney disease stage 5; Translations: [Chronic kidney disease, stage 5] Onset: 10-20-2020 Resolved: 10-20-2020 10-20-2020 Chronic Disorders of lipid metabolism (20 sources) Hyperlipidemia; Translations: [Hyperlipidemia, unspecified] Onset: 12-28-2010 12-28-2010 Chronic Diverticulosis and diverticulitis (20 sources) Diverticular disease; Translations: [Diverticulosis of intestine, part unspecified, without perforation or abscess without bleeding] Onset: 06-14-2015 06-14-2015 Chronic Essential hypertension (20 sources) Hypertensive disorder; Translations: [Essential hypertension] Onset: 12-28-2010 Resolved: 05-12-2015 05-12-2015 Chronic Genitourinary symptoms and ill-defined conditions (16 sources) Dysuria; Translations: [Dysuria] Onset: 04-09-2021 Episodic Heart valve disorders (20 sources) Mitral valve regurgitation; Translations: [Nonrheumatic mitral (valve) insufficiency] Onset: 12-04-2013 12-04-2013 Chronic Nutritional deficiencies (20 sources) Vitamin D deficiency; Translations: [Vitamin D deficiency, unspecified] Onset: 09-29-2016 09-29-2016 Chronic Osteoporosis (20 sources) Osteoporosis; Translations: [Age-related osteoporosis without current pathological fracture] Onset: 05-12-2015 05-12-2015 Chronic Other aftercare (6 sources) Long-term current use of anticoagulant 04-02-2020 Episodic Other circulatory disease (7 sources) Device in situ; Translations: [Presence of other cardiac implants and grafts] Onset: 09-14-2022 09-14-2022 Chronic Other circulatory disease (11 sources) Presence of other cardiac implants and grafts; Translations: [Other specified cardiac device in situ] Onset: 09-14-2022 09-14-2022 Chronic Other diseases of kidney and ureters (1 source) Acquired renal cyst without neoplastic change; Translations: [Cyst of kidney, acquired] Onset: 11-17-2022 Episodic Other diseases of kidney and ureters (6 sources) Cyst of kidney 11-17-2022 Episodic Other nutritional; endocrine; and metabolic disorders (1 source) Obese class I; Translations: [Body mass index (BMI) 31.0-31.9, adult] Onset: 11-17-2022 Chronic Other nutritional; endocrine; and metabolic disorders (6 sources) Body mass index 30+ - obesity 11-17-2022 Chronic Residual codes; unclassified (1 source) Patient encounter status; Translations: [Other specified health status] Onset: 11-17-2022 Episodic Unclassified (6 sources) Asymptomatic microscopic hematuria 04-02-2020 Unclassified (6 sources) Long-term current use of aspirin 04-02-2020 Unclassified (6 sources) Non-smoker 11-17-2022 Unclassified (2 sources) Chronic atrial fibrillation, unspecified; Translations: [Chronic atrial fibrillation, unspecified] Onset: 03-15-2023 Unclassified (1 source) Pyuria; Translations: [Pyuria] Onset: 02-29-2024 Urinary tract infections (12 sources) Urinary tract infectious disease; Translations: [Urinary tract infection, site not specified] Onset: 12-28-2010 01-25-2015 Episodic Urinary tract infections (9 sources) Sepsis due to urinary tract infection; Translations: [Sepsis due to urinary tract infection] Onset: 12-28-2010 01-25-2015 Past or Other Problems Problem Classification Problem Date Documented Da te Episodic/Chronic Anal and rectal conditions (20 sources) Rectal polyp; Translations: [Rectal polyp] Onset: 06-14-2015 06-14-2015 Episodic Cardiac dysrhythmias (20 sources) Palpitations; Translations: [Palpitations] Resolved: 05-08-2016 05-08-2016 Episodic Nonmalignant breast conditions (20 sources) Solitary cyst of breast; Translations: [Atypical hyperplasia of breast] Onset: 11-11-2012 11-11-2012 Episodic Other aftercare (1 source) 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; Translations: [[facility] USE ANTICOAGULANTS] Onset: 04-09-2021 Episodic Other connective tissue disease (1 source) Pain in toe Episodic Other screening for suspected conditions (not mental disorders or infectious disease) (19 sources) Increased glucose level; Translations: [Patient encounter status] Onset: 06-14-2015 Resolved: 02-14-2018 02-14-2018 Episodic Septicemia (except in labor) (13 sources) Sepsis due to urinary tract infection; Translations: [Sepsis, unspecified organism] Onset: 12-28-2010 Resolved: 11-03-2022 01-25-2015 Episodic Unclassified (10 sources) Patient encounter status; Translations: [Encounter for screening colonoscopy] Onset: 06-14-2015 Resolved: 02-14-2018 02-14-2018 Unclassified (6 sources) Onset: 04-30-2023 Resolved: 05-01-2024 04-30-2023 Results Test Name Value Interpretation Reference Range Facility BASIC METABOLIC PANEL WITH A NION GAPon 07-30-2024 BUN/CREATININE RATIO SEE NOTE: Normal 6-22 [facility] Comment on above: Result Comment: Not Reported: BUN and Creatinine are within reference range. Performed By: #### 6 399, [id number] #### [facility] [address], [address] [place] [address] Photoengraving Helper: Sai Saldana MD Calcium [Mass/Vol] 10.0 mg/dL Normal 8.6-10.4 [facility] Comment on above: Performed By: #### 6 399, [id number] #### [facility] [place] [address] Photoengraving Helper: Sai Saldana MD Chloride [Moles/Vol] 108 mmol/L Normal 98-110 [facility] Comment on above: Performed By: #### 6 399, 40207 #### [facility] [place] [address] Photoengraving Helper: Sai Saldana MD CO2 [Moles/Vol] 22 mmol/L Normal 20-32 [facility] Comment on above: Performed By: #### 6 399, 02509 #### [facility] [place] [address] Photoengraving Helper: Sai Saldana MD Creatinine [Mass/Vol] 0.79 mg/dL Normal 0.60-1.00 [facility] Comment on above: Performed By: #### 6 399, 72796 #### [facility] [place] [address] Photoengraving Helper: Sai Saldana MD ELECTROLYTE BALANCE 10 mmol/L (calc) Normal 7-17 [facility] Comment on above: Performed By: #### 6 399, 68683 #### [facility] [place] [address] Photoengraving Helper: Sai Saldana MD GFR/1.73 sq M.predicted among non-blacks MDRD (S/P/Bld) [Vol rate/Area] 78 mL/min/{1.73_m2} Normal > OR = 60 [facility] Comment on above: Performed By: #### 6 399, [id number] #### [facility] [place] [address] Photoengraving Helper: Sai Saldana MD Glucose [Mass/Vol] 110 mg/dL High 65-99 [facility] Comment on above: Result Comment: Fasting reference interval For someone without known diabetes, a glucose value between 100 and 125 mg/dL is consistent with prediabetes and should be confirmed with a follow-up test. Performed By: #### 6 399, [id number] #### [facility] [place] [address] Photoengraving Helper: Sai Saldana MD Potassium [Moles/Vol] 4.1 mmol/L Normal 3.5-5.3 [facility] Comment on above: Performed By: #### 6 399, 61919 #### [facility] [place] [address] Photoengraving Helper: Sai Saldana MD Sodium [Moles/Vol] 140 mmol/L Normal 135-146 [facility] Comment on above: Performed By: #### 6 399, 89119 #### [facility] [address] Photoengraving Helper: Sai Saldana MD Urea nitrogen [Mass/Vol] 14 mg/dL Normal 7-25 [facility] Comment on above: Performed By: #### 6 399, 24553 #### [facility] [place] [address] Photoengraving Helper: Sai Saldana MD CBC (INCLUDES DIFF/PLT)on Basophils (Bld) [#/Vol] 0.03 10*3/uL Normal 0-200 [facility] Comment on above: Performed By: #### 6 399, 51969 #### [facility] [place] [address] Photoengraving Helper: Sai Saldana MD Basophils/100 WBC (Bld) 0.5 % Normal [facility] Comment on above: Performed By: #### 6 399, 88936 #### [facility] [place] [address] Photoengraving Helper: Sai Saldana MD Eosinophils (Bld) [#/Vol] 0.047 10*3/uL Normal 15-500 [facility] Comment on above: Performed By: #### 6 399, 04085 #### [facility] [place] [address] Photoengraving Helper: Sai Saldana MD Eosinophils/100 WBC (Bld) 0.8 % Normal [facility] Comment on above: Performed By: #### 6 399, 44328 #### [facility] [place] [address] Photoengraving Helper: Sai Saldana MD Erythrocyte distribution width (RBC) [Ratio] 12.7 % Normal 11.0-15.0 [facility] Comment on above: Performed By: #### 6 399, 51367 #### [facility] [place] [address] Photoengraving Helper: Sai Saldana MD Hematocrit (Bld) [Volume fraction] 40.1 % Normal 35.0-45.0 [facility] Comment on above: Performed By: #### 6 399, 06995 #### [facility] [place] [address] Photoengraving Helper: Sai Saldana MD Hemoglobin (Bld) [Mass/Vol] 13.3 g/dL Normal 11.7-15.5 [facility] Comment on above: Performed By: #### 6 399, 02739 #### [facility] of [address], [address] [place] [address] Photoengraving Helper: Sai Saldana MD Lymphocytes (Bld) [#/Vol] 1.746 10*3/uL Normal 850-3900 [facility] Comment on above: Performed By: #### 6 399, 78675 #### [facility] [place] [address] Photoengraving Helper: Sai Saldana MD Lymphocytes/100 WBC (Bld) 29.6 % Normal [facility] Comment on above: Performed By: #### 6 399, 14700 #### [facility] of [address], [address] [place] [address] Photoengraving Helper: Sai Saldana MD MCH (RBC) [Entitic mass] 31.7 pg Normal 27.0-33.0 [facility] Comment on above: Performed By: #### 6 399, 38722 #### [facility] [place] [address] Photoengraving Helper: Sai Saldana MD MCHC (RBC) [Mass/Vol] 33.2 g/dL Normal 32.0-36.0 [facility] Comment on above: Result Comment: For adults, a slight decrease in the calculated MCHC value (in the range of 30 to 32 g/dL) is most likely not clinically significant; however, it should be interpreted with caution in correlation with other red cell parameters and the patient's clinical condition. Performed By: #### 6 399, 38324 #### [facility] [place] [address] Photoengraving Helper: Sai Saldana MD MCV (RBC) [Entitic vol] 95.7 fL Normal 80.0-100.0 [facility] Comment on above: Performed By: #### 6 399, 09563 #### [facility] [place] [address] Photoengraving Helper: Sai Saldana MD Monocytes (Bld) [#/Vol] 0.608 10*3/uL Normal 200-950 [facility] Comment on above: Performed By: #### 6 399, 95124 #### [facility] [place] [address] Photoengraving Helper: Sai Saldana MD Monocytes/100 WBC (Bld) 10.3 % Normal [facility] Comment on above: Performed By: #### 6 399, 38312 #### [facility] [place] [address] Photoengraving Helper: Sai Saldana MD Neutrophils (Bld) [#/Vol] 3.469 10*3/uL Normal 6441-6937 [facility] Comment on above: Performed By: #### 6 399, 59711 #### [facility] [place] [address] Photoengraving Helper: Sai Saldana MD Neutrophils/100 WBC (Bld) 58.8 % Normal [facility] Comment on above: Performed By: #### 6 399, 18054 #### [facility] [place] [address] Photoengraving Helper: Sai Saldana MD Platelet mean volume (Bld) [Entitic vol] 10.6 fL Normal 7.5-12.5 [facility] Comment on above: Performed By: #### 6 399, 77765 #### [facility] [place] [address] Photoengraving Helper: Sai Saldana MD Platelets (Bld) [#/Vol] 234 10*3/uL Normal 140-400 [facility] Comment on above: Performed By: #### 6 399, 63343 #### [facility] of [address], [address] [place] [address] Photoengraving Helper: Sai Saldana MD RBC (d) [#/Vol] 4.19 10*6/uL Normal 3.80-5.10 [facility] Comment on above: Performed By: #### 6 399, 05726 #### [facility] [address], [address] [place] [address] Photoengraving Helper: Sai Saldana MD WBC (Bld) [#/Vol] 5.9 10*3/uL Normal 3.8-10.8 [facility] Comment on above: Performed By: #### 6 399, 75543 #### [facility] of [address], [address] [place] [address] Photoengraving Helper: Sai Saldana MD ECG 12 LeadOrdered By: Stephanie Blackwood on 07-29-2024 Atrial Rate [facility] Work Phone: P [place] [facility] Work Phone: P-R Interval [facility] Work Phone: Q-T Interval [facility] Work Phone: Q-T Interval (corrected) [facility] Work Phone: QRS Duration [facility] Work Phone: QTC Calculation (Bezet) [facility] Work Phone: R [place] [facility] Work Phone: T [place] [facility] Work Phone: Ventricular Rate [facility] Work Phone: [facility] Work Phone: Calculus Analysison 06-30-19 25 Calcium oxalate dihydrate Infrared spectroscopy (Stone) [Mass fraction] 70 % Invalid Interpretation Code [facility] Comment on above: Performed By: #### 1 [id number] #### [facility] [address] [place] [address] Calcium oxalate monohydrate (Stone) [Mass fraction] 30 % Invalid Interpretation Code [facility] Comment on above: Performed By: #### 1 [id number] #### [facility] [address] [place] [address] Color (Stone) Borja Invalid Interpretation Code [facility] Comment on above: Performed By: #### 1 [id number] #### [facility] [address] [place] [address] Composition Comment Invalid Interpretation Code [facility] Comment on above: Result Comment: Perc entage (Represents the % composition) Performed By: #### 1 [id number] #### [facility] [address] [place] [address] Disclaimer: Comment Invalid Interpretation Code [facility] Comment on above: Result Comment: This test was developed and its performance characteristics determined by [facility]. It has not been cleared or approved by the Food and Drug Administration. Performed at: [address] [id number] PhD Yancy Banegas Performed By: #### 1 [id number] #### [facility] [address] [place] [address] Laboratory comment Keagan (Report) Comment Invalid Interpretation Code [facility] Comment on above: Result Comment: Patricia frank questions regarding Calculi Analysis contact [facility] at: [phone]. Performed By: #### 1 [id number] #### [facility] [address] [place] [address] Please Note: Comment Invalid Interpretation Code [facility] Comment on above: Result Comment: Calc rachel report will follow via computer, mail or vision therapist delivery. Performed By: #### 1 [id number] #### [facility] [address] [place] [address] Size (Stone) [Entitic vol] 2x2 Invalid Interpretation Code [facility] Comment on above: Result Comment: Mult iple pieces received. Dimensions of the largest piece reported. Performed By: #### 1 [id number] #### [facility] [address] [place] [address] Specimen source subject Nom Comment Invalid Interpretation Code [facility] Comment on above: Result Comment: Not provided Performed By: #### 1 [id number] #### [facility] [address] [place] [address] Stone Photo Comment Invalid Interpretation Code [facility] Comment on above: Result Comment: Phot ograph will follow under a separate cover Performed By: #### 1 [id number] #### [facility] [address] [facility] [place] [address] Weight (Stone) 39 mg Invalid Interpretation Code [facility] Comment on above: Performed By: #### 1 [id number] #### [facility] [address] [place] [address] Urology Office/Clinic Noteon 06-23-2024 Urology Office/Clinic Note Urology Office/Clinic Note Chief Complaint 6 month follow up with KUB HPI Staff 73yr old female pt here for 6mo f/u with KUB. KUB done 06/17/24. S/p Right ESWL done 12/27/23. Previous Dx: kidney stone *Effer-K 25mEq bid, HCTZ 50mg qd Dysuria: denies Incomplete bladder emptying: denies Hematuria: denies Frequency: denies Urgency: denies Nocturia: 2 x a night Stream: denies straining, has a steady stream Leaking: denies Post void dripping: denies Wearing pads/ Depends: denies Urge incontinence: denies Stress incontinence: denies Incontinence without Sensory Awareness: denies Abdominal pain: denies Flank pain: denies Sexual complaints: _ Review of Systems PHQ Score Initial Depression Screen Score: 0 SCORE no fevers Physical Exam Vitals & Measurements HR: 58(Peripheral) RR: 16 BP: 125/73 HT: 64 in HT: 163 cm WT: 82 kg WT: 180.779 lb BMI: 30.86 nontoxic Assessment/Plan 1. Kidney stone (N20.0: Calculus of kidney) Taking HCTZ 50mg qd and Klor-Con 20meq bid (was supposed to switch to Effer-K last visit but looks like script wasn't signed off on). Sp R ESWL 12/27/23 by PRW. No issues since ESWL. Did bring stones to send for analysis. KUB 06/17/24 - possible 5mm R renal stone, moderate stool. BBSQ 8 very good control. UA shows small leuks. Denies UTI sx. No indication to send for cx. -Stone analysis -6 mo KUB + AILEEN -Send rx for Effer-k (see above) -Looks like last metabolic eval was 2021. Consider repeat at next ov. Ordered: E&M of Est. Patient Moderate 30-39 Min 54013 Urnls Dip Stick Auto w/o Microscopy POC [id number] Orders: hydrochlorothiazide, 50 mg = 1 tab(s), Oral, Daily, # 90 tab(s), Refills(s) 3, Pharmacy: [facility], 163, cm, 06/23/24 9:52:00 EST, Height/Length Dosing, 82, kg, 06/23/24 9:52:00 EST, Weight Dosing potassium bicarbonate, 25 mEq = 1 tab(s), Oral, BID, MELVIN, # 60 tab(s), Refills(s) 11, Pharmacy: [facility], 163, cm, 06/23/24 9:52:00 EST, Height/Length Dosing, 82, kg, 06/23/24 9:52:00 EST, Weight Dosing Follow-up With When Contact Information DOREEN STEVE, FEMI E, URL In 6 months [address] [facility] [place] [address] Additional Instructions: Patient Education Kidney Stones, Vhuj-[id number]-Vrhp Problem List/Past Medical History Ongoing Anticoagulant long-term [...] Tab, 50 mg= 1 tab(s), Oral, Daily, 3 refills K-Effervescent 25 mEq oral tablet, effervescent, 25 mEq= 1 tab(s), Oral, BID, 11 refills lisinopril 5 mg Tab metoprolol 50 mg ER Tab, 50 mg= 1 tab(s), Oral, BID Allergies penicillins (Unknown) sulfa drugs (Unknown) Social History Alcohol - Denies Alcohol Use, 04/02/2020 Never., 06/23/2024 Tobacco - Denies Tobacco Use, 04/02/2020 Never (less than 100 in lifetime) Tobacco Use:. Never Smokeless Tobacco Use:., 06/23/2024 Family History Unable to obtain family history Immunizations Vaccine Date Status Comments influenza virus vaccine, inactivated 04/16/2023 Recorded diphtheria/pertussis, acel/tetanus adult 06/30/2022 Recorded influenza virus vaccine, inactivated 02/16/2022 Recorded SARS-CoV-2 (COVID-19) [id number] 02/16/2022 Recorded pneumococcal 20-valent conjugate vaccine 01/09/2022 Recorded zoster vaccine, inactivated 04/29/2021 Recorded SARS-CoV-2 (COVID-19) mRNA-1273 vaccine 04/18/2021 Recorded zoster vaccine, inactivated 02/07/2021 Recorded SARS-CoV-2 (COVID-19) mRNA-1273 vaccine 08/23/2020 Recorded SARS-CoV-2 (COVID-19) mRNA-1273 vaccine 07/26/2020 Recorded SARS-CoV-2 (COVID-19) mRNA BNT-162b2 vax 2020 Recorded influenza virus vaccine, live, trivalent - Not Given Patient Refuses Lab Results Ambulatory Point of Care Results Bilirubin Urine Dipstick: Negative (06/23/24 09:49:00) Blood Urine Dipstick: Negative (06/23/24 09:49:00) Glucose Urine Dipstick: Negative (06/23/24 09:49:00) Ketones Urine Dipstick: Negative (06/23/24 09:49:00) Leukocytes Urine Dipstick: 1+ Small (06/23/24 09:49:00) Nitrite Urine Dipstick: Negative (06/23/24 09:49:00) Protein Urine Dipstick: 1+ (30 mg/dl) (06/23/24 09:49:00) Specific [place] Urine Dipstick: 1.015 (06/23/24 09:49:00) Urine Appearance Urine Dipstick: Clear (06/23/24 09:49:00) Urine Color Urine Dipstick: Yellow (06/23/24 09:49:00) Urobilinogen Urine Dipstick: Normal 0.2-1 EU/dl (06/23/24 09:49:00) pH Urine Dipstick: 8 (06/23/24 09:49:00) Normal [facility] Comment on above: Result Comment: Elec tronically Signed By: FEMI LOGAN PA-C\.br\Date and Time Signed: 06/23/24 10:41 EST XR ABDOMEN (KUB) (SINGLE AP VIEW)on 06-17-2024 XR ABDOMEN (KUB) (SINGLE AP VIEW) EXAM: XR ABDOMEN (KUB) (SINGLE AP VIEW) HISTORY: Uric acid nephrolithiasis COMPARISON: CT abdomen and pelvis 07/13/2021. KUB Nadira, 12/27/2023. IMPRESSION: FINDINGS/IMPRESSION: 1. There may be a 5 mm residual calcification over the inferior pole right kidney, smaller than previously. 2. Calcified uterine fibroids unchanged. 3. Moderate stool. 4. Degenerative changes spine. Interpreted by: Navid Armstrong Jr., MD Signed by: Navid Armstrong Jr., MD 06/17/24 Final result Normal [facility] XR Abdomen Single viewon FINDINGS/IMPRESSION: 1. There may be a 5 mm residual calcification over the inferior pole right kidney, smaller than previously. 2. Calcified uterine fibroids unchanged. 3. Moderate stool. 4. Degenerative changes spine. [facility] EXAM: XR ABDOMEN (KU B) (SINGLE AP VIEW) HISTORY: Uric acid nephrolithiasis COMPARISON: CT abdomen and pelvis 07/13/2021. KUB Nadira, 12/27/2023. [facility] Navid Armstrong Jr., MD - 06/17/2024 EXAM: XR ABDOMEN (KUB) (SINGLE AP VIEW) HISTORY: Uric acid nephrolithiasis COMPARISON: CT abdomen and pelvis 07/13/2021. KUB Nadira, 12/27/2023. IMPRESSION: FINDINGS/IMPRESSION: 1. There may be a 5 mm residual calcification over the inferior pole right kidney, smaller than previously. 2. Calcified uterine fibroids unchanged. 3. Moderate stool. 4. Degenerative changes spine. [facility] Radiology Study observation (narrative) [facility] XR Abdomen Single viewOrdere d By: Navid Armstrong on 06-17-2024 [facility] Work Phone: XR CHEST (2 VW)on 04-02-2024 XR CHEST (2 VW) EXAM: XR CHEST (2 VW ) HISTORY: Paroxysmal atrial fibrillation (HCC) COMPARISON: 04/11/2022 IMPRESSION: FINDINGS/IMPRESSION: 1. There might be an atrial appendage occluder present. 2. Heart size normal. 3. Lungs clear. Interpreted by: Navid Armstrong Jr., MD Signed by: Navid Armstrong Jr., MD 04/02/24 Final result Normal [facility] XR Chest 2 Viewson FINDINGS/IMPRESSION: 1. There might be an atrial appendage occluder present. 2. Heart size normal. 3. Lungs clear. [facility] EXAM: XR CHEST (2 VW ) HISTORY: Paroxysmal atrial fibrillation (HCC) COMPARISON: 04/11/2022 [facility] Navid Armstrong Jr., MD - 04/02/2024 EXAM: XR CHEST (2 VW) HISTORY: Paroxysmal atrial fibrillation (HCC) COMPARISON: 04/11/2022 IMPRESSION: FINDINGS/IMPRESSION: 1. There might be an atrial appendage occluder present. 2. Heart size normal. 3. Lungs clear. [facility] XR Chest 2 ViewsOrdered By: Navid Armstrong on 04-02-2024 [facility] Work Phone: CBC with Auto Differentialon 04-01-2024 Basophils (Bld) [#/Vol] 0.02 10*3/uL [facility] Basophils/100 WBC (Bld) 1 % 0 - 2 % [facility] Eosinophils (Bld) [#/Vol] 0.05 10*3/uL [facility] Eosinophils/100 WBC (Bld) 1 % 0 - 5 % [facility] Erythrocyte distribution width (RBC) [Ratio] 13.4 % 12.1 - 15.2 % [facility] Hematocrit (Bld) [Volume fraction] 39.7 % 36.0 - 46.0 % [facility] Hemoglobin (Bld) [Mass/Vol] 13.4 g/dL 12.0 - 16.0 g/dL [facility] Immature granulocytes (Bld) [#/Vol] 0.01 10*3/uL [facility] Immature granulocytes/100 WBC (Bld) 0 % 0 - 5 % [facility] Interpretation and review of laboratory results Abnormal [facility] Lymphocytes/100 WBC (Bld) 39 % 15 - 40 % [facility] Lymphocytes/100 WBC (Bld) 1.57 % [facility] MCH (RBC) [Entitic mass] 32.1 pg 26.0 - 34.0 pg [facility] MCHC (RBC) [Mass/Vol] 33.8 g/dL 31.0 - 37.0 g/dL [facility] MCV (RBC) [Entitic vol] 95.0 fL 80.0 - 100.0 fL [facility] Monocytes/100 WBC (Bld) 10 % High 4 - 8 % [facility] Monocytes/100 WBC (Bld) 0.40 % [facility] Neutrophils/100 WBC (Bld) 49 % 47 - 75 % [facility] Platelet mean volume (Bld) [Entitic vol] 9.5 fL 6.0 - 12.0 fL [facility] Platelets (Bld) [#/Vol] 209 10*3/uL [facility] RBC (Bld) [#/Vol] 4.18 10*6/uL 4.00 - 5.2 0 m/uL [facility] Segmented neutrophils/100 WBC (Bld) 2.00 % Low [facility] WBC other (Bld) [#/Vol] 4.1 [facility] CBC with Diffon 04-01-2024 Abs. Basophil 0.02 k/uL Normal 0.00-0.20 [facility] Comment on above: Performed By: #### M G, TSHX, CDP, CP #### [facility] [address] [id number] [employer]ic: Lazarus Gan MD #### LIPR, VD25 #### [address] [id number] [employer] Duty [employer] Mechanic: Drew Craven MD Abs.Imm.Granulocyte 0.01 k/uL Normal 0.00-0.30 [facility] Comment on above: Performed By: #### M Loc, TSHX, CDP, CP #### [facility] [address] [id number] ( [employer]el [employer]ic: Lazarus Gan MD #### ROSALINDA, VD25 #### [place] [address] [employer] Duty Diesel Mechanic: Drew Craven MD Abs.Neutrophil (Seg) 2.00 k/uL Low 2.5-7.0 [facility] Comment on above: Performed By: #### Crystal Lazcano, TSHX, CDP, CP #### [facility] [address] [place] [address] [employer] Duty [employer]el Mechanic: Lazarus Gan MD #### LIPMariana, VD25 #### [place] [address] [employer] Duty Diesel Mechanic: Drew Craven MD Basophils/100 WBC (Bld) 1 % Normal 0-2 [facility] Comment on above: Performed By: #### M G, TSHX, CDP, CP #### [facility] [address] [place] [address] [employer] Duty Diesel Mechanic: Lazarus Gan MD #### LIPR, VD25 #### [address] [id number] [employer] Duty [employer]el Mechanic: Drew Craven MD Eosinophils (Bld) [#/Vol] 0.05 10*3/uL Normal 0.00-0.40 [facility] Comment on above: Performed By: #### M Loc, TSHX, CDP, CP #### [facility] [address] [place], [place] [id number] [employer] Duty [employer]el Mechanic: Lazarus Gan MD #### ROSALINDA, VD25 #### [address] [id number] Heavy Duty Diesel Mechanic: Drew Craven MD Eosinophils/100 WBC (Bld) 1 % Normal 0-5 [facility] Comment on above: Performed By: #### Crystal Lazcano, TSHX, CDP, CP #### [facility] [address] [id number] Heavy Duty Diesel Mechanic: Lazarus Gan MD #### CLAYTON25 #### [address] [id number] [employer] Duty Diesel Mechanic: Drew Craven MD Erythrocyte distribution width (RBC) [Ratio] 13.4 % Normal 12.1-15.2 [facility] Comment on above: Performed By: #### Crystal Lazcano, TSHX, CDP, CP #### [facility] [address] [phone] Heavy Duty Diesel Mechanic: Lazarus Gan MD #### ROSALINDA VD25 #### [address] [id number] Heavy Duty Diesel Mechanic: Drew Craven MD Hematocrit (Bld) [Volume fraction] 39.7 % Normal 36.0-46.0 [facility] Comment on above: Performed By: #### M Loc, TSHX, CDP, CP #### [facility] [address] [id number] Heavy Duty Diesel Mechanic: Lazarus Gan MD #### ROSALINDA, VD25 #### [address] [id number] Heavy Duty Diesel Mechanic: Drew Craven MD Hemoglobin (Bld) [Mass/Vol] 13.4 g/dL Normal 12.0-16.0 [facility] Comment on above: Performed By: #### M G, TSHX, CDP, CP #### [facility] [address] [place], [place] [id number] Heavy Duty Diesel Mechanic: Lazarus Gan MD #### LIPR, VD25 #### [address] [place], [place] [id number] Heavy Duty Diesel Mechanic: Drew Craven MD Immature granulocytes/100 WBC (Bld) 0 % Normal 0-5 [facility] Comment on above: Performed By: #### M G, TSHX, CDP, CP #### [facility] [address] [place], [place] [id number] Heavy Duty Diesel Mechanic: Lazarus Gan MD #### ROSALINDA, VD25 #### [address] [place], [place] [id number] Heavy Duty Diesel Mechanic: Drew Craven MD Lymphocytes (Bld) [#/Vol] 1.57 10*3/uL Normal 1.00-4.80 [facility] Comment on above: Performed By: #### M G, TSHX, CDP, CP #### [facility] [address] [place], [place] [id number] Heavy Duty Diesel Mechanic: Lazarus Gan MD #### LIPR, VD25 #### [address] [place] [address] Heavy Duty Diesel Mechanic: Drew Craven MD Lymphocytes/100 WBC (Bld) 39 % Normal 15-40 [facility] Comment on above: Performed By: #### M G, TSHX, CDP, CP #### [facility] [address] [place], [place] [phone] Heavy Duty Diesel Mechanic: Lazarus Gan MD #### LIPR, VD25 #### [address] [id number] Heavy Duty Diesel Mechanic: Drew Craven MD MCH (RBC) [Entitic mass] 32.1 pg Normal 26.0-34.0 [facility] Comment on above: Performed By: #### M G, TSHX, CDP, CP #### [facility] [address] [place], [place] [phone] Heavy Duty Diesel Mechanic: Lazarus Gan MD #### LIPR, VD25 #### [address] [id number] Heavy Duty Diesel Mechanic: Drew Craven MD MCHC (RBC) [Mass/Vol] 33.8 g/dL Normal 31.0-37.0 [facility] Comment on above: Performed By: #### M G, TSHX, CDP, CP #### [facility] [address] [place] [address] Heavy Duty Diesel Mechanic: Lazarus Gan MD #### ROSALINDA, VD25 #### [address] [id number] Heavy Duty Diesel Mechanic: Drew Craven MD MCV (RBC) [Entitic vol] 95.0 fL Normal 80.0-100.0 [facility] Comment on above: Performed By: #### M G, TSHX, CDP, CP #### [facility] [address] [id number] Heavy Duty Diesel Mechanic: Lazarus Gan MD #### LIPR, VD25 #### [address] [id number] Heavy Duty Diesel Mechanic: Drew Craven MD Monocytes (Bld) [#/Vol] 0.40 10*3/uL Normal 0.00-1.00 [facility] Comment on above: Performed By: #### M G, TSHX, CDP, CP #### [facility] [address] [phone] Heavy Duty Diesel Mechanic: Lazarus Gan MD #### LIPR, VD25 #### [facility] [address] [place], [place] [phone] Heavy Duty Diesel Mechanic: Drew Craven MD Monocytes/100 WBC (Bld) 10 % High 4-8 [facility] Comment on above: Performed By: #### M G, TSHX, CDP, CP #### [facility] [address] [place] [address] [employer] Duty Diesel Mechanic: Lazarus Gan MD #### LIPR, VD25 #### [address] [place], [place] [id number] Heavy Duty Diesel Mechanic: Drew Craven MD Neutrophil (Seg) 49 % Normal 47-75 [facility] Comment on above: Performed By: #### M G, TSHX, CDP, CP #### [facility] [address] [phone] Heavy Duty Diesel Mechanic: Lazarus Gan MD #### LIPR, VD25 #### [address] [address] [place], [place] [id number] Heavy Duty Diesel Mechanic: Drew Craven MD Platelet mean volume (Bld) [Entitic vol] 9.5 fL Normal 6.0-12.0 [facility] Comment on above: Performed By: #### M G, TSHX, CDP, CP #### [facility] [address] [id number] Heavy Duty Diesel Mechanic: Lazarus Gan MD #### LIPR, VD25 #### [address] [place], [place] [phone] Heavy Duty Diesel Mechanic: Drew Craven MD Platelets (Bld) [#/Vol] 209 10*3/uL Normal 140-450 [facility] Comment on above: Performed By: #### M G, TSHX, CDP, CP #### [facility] [address] [place], [place] [id number] Heavy Duty Diesel Mechanic: Lazarus Gan MD #### LIPR, VD25 #### [facility] [address] [place] [address] Heavy Duty Diesel Mechanic: Drew Craven MD RBC (Bld) [#/Vol] 4.18 10*6/uL Normal 4.00-5.20 [facility] Comment on above: Performed By: #### M G, TSHX, CDP, CP #### [facility] [address] [place], [place] [id number] Heavy Duty Diesel Mechanic: Lazarus Gan MD #### LIPR, VD25 #### [address] [address] Heavy Duty Diesel Mechanic: Drew Craven MD WBC (Bld) [#/Vol] 4.1 10*3/uL Normal 3.5-11.0 [facility] Comment on above: Performed By: #### Crystal G, TSHX, CDP, CP #### [facility] [address] [place], [place] [id number] Heavy Duty Diesel Mechanic: Lazarus Gan MD #### ROSALINDA, VD25 #### [address] [address] Heavy Duty Diesel Mechanic: Drew Craven MD Comp Metabolic Profon 2023 Albumin [Mass/Vol] 4.1 g/dL Normal 3.5-5.2 [facility] Comment on above: Performed By: #### M G, TSHX, CDP, CP #### [facility] [address] [place], [place] [id number] Heavy Duty Diesel Mechanic: Lazarus Gan MD #### LIPR, VD25 #### [address] [id number] Heavy Duty Diesel Mechanic: Drew Craven MD Alkaline Phos 59 U/L Normal 35-104 [facility] Comment on above: Performed By: #### M G, TSHX, CDP, CP #### [facility] [address] [place], [place] [phone] Heavy Duty Diesel Mechanic: Lazarus Gan MD #### LIPR, VD25 #### [address] [id number] Heavy Duty Diesel Mechanic: Drew Craven MD ALT [Catalytic activity/Vol] 24 U/L Normal 5-33 [facility] Comment on above: Performed By: #### M G, TSHX, CDP, CP #### [facility] [address] [place], [place] [phone] Heavy Duty Diesel Mechanic: Lazarus Gan MD #### LIPR, VD25 #### [address] [id number] Heavy Duty Diesel Mechanic: Drew Craven MD Anion gap [Moles/Vol] 11 mmol/L Normal 9-17 [facility] Comment on above: Performed By: #### M G, TSHX, CDP, CP #### [facility] [address] [place], [place] [phone] Heavy Duty Diesel Mechanic: Lazarus Gan MD #### LIPR, VD25 #### [address] [place], [place] 1682208 Heavy Duty Diesel Mechanic: Drew Craven MD AST [Catalytic activity/Vol] 20 U/L Normal <32 [facility] Comment on above: Performed By: #### M G, TSHX, CDP, CP #### [facility] [address] [place], [place] [phone] Heavy Duty Diesel Mechanic: Lazarus Gan MD #### LIPR, VD25 #### [address] [id number] Heavy Duty Diesel Mechanic: Drew Craven MD Bilirubin [Mass/Vol] 0.9 mg/dL Normal 0.3-1.2 [facility] Comment on above: Performed By: #### M G, TSHX, CDP, CP #### [facility] [address] [place], [place] [phone] Heavy Duty Diesel Mechanic: Lazarus Gan MD #### LIPR, VD25 #### [facility] [address] [place], [place] 0858008 Heavy Duty Diesel Mechanic: Drew Craven MD BUN/CRE Ratio 14 Normal 9-20 [facility] Comment on above: Performed By: #### M G, TSHX, CDP, CP #### [facility] [address] [place], [place] [phone] Heavy Duty Diesel Mechanic: Lazarus Gan MD #### LIPR, VD25 #### [address] [address] Heavy Duty Diesel Mechanic: Drew Craven MD Calcium [Mass/Vol] 10.0 mg/dL Normal 8.6-10.4 [facility] Comment on above: Performed By: #### M G, TSHX, CDP, CP #### [facility] [address] [place], [place] [phone] Heavy Duty Diesel Mechanic: Lazarus Gan MD #### LIPR, VD25 #### [address] [place] [address] Heavy Duty Diesel Mechanic: Drew Craven MD Chloride [Moles/Vol] 106 mmol/L Normal 98-107 [facility] Comment on above: Performed By: #### M G, TSHX, CDP, CP #### [facility] [address] [place] [address] Heavy Duty Diesel Mechanic: Lazarus Gan MD #### LIPR, VD25 #### [address] [address] Heavy Duty Diesel Mechanic: Drew Craven MD CO2 [Moles/Vol] 24 mmol/L Normal 20-31 [facility] Comment on above: Performed By: #### M G, TSHX, CDP, CP #### [facility] [address] [place], [place] [id number] Heavy Duty Diesel Mechanic: Lazarus Gan MD #### LIPR, VD25 #### [facility] [address] [place] [address] [id number] Heavy Duty Diesel Mechanic: Drew Craven MD Creatinine [Mass/Vol] 0.7 mg/dL Normal 0.5-0.9 [facility] Comment on above: Performed By: #### M G, TSHX, CDP, CP #### [facility] [address] [place], [place] [phone] Heavy Duty Diesel Mechanic: Lazarus Gan MD #### LIPMariana, VD25 #### [address] [id number] Heavy Duty Diesel Mechanic: Drew Craven MD GFR/1.73 sq M.predicted among non-blacks MDRD (S/P/Bld) [Vol rate/Area] mL/min/{1.73_m2} Normal >60 [facility] Comment on above: Result Comment: These results [...] affects renal tubular secretion. Performed By: #### M G, TSHX, CDP, CP #### [facility] [address] [place], [place] [phone] Heavy Duty Diesel Mechanic: Lazarus Gan MD #### LIPMariana, VD25 #### [address] [phone] Heavy Duty Diesel Mechanic: Drew Craven MD Glucose [Mass/Vol] 117 mg/dL High 70-99 [facility] Comment on above: Performed By: #### M G, TSHX, CDP, CP #### [facility] [address] [place], [place] 6128390 Heavy Duty Diesel Mechanic: Lazarus Gan MD #### LIPR, VD25 #### [address] [id number] Heavy Duty Diesel Mechanic: Drew Craven MD Potassium [Moles/Vol] 3.7 mmol/L Normal 3.7-5.3 [facility] Comment on above: Performed By: #### M G, TSHX, CDP, CP #### [facility] [address] [place], [place] 1623290 Heavy Duty Diesel Mechanic: Lazarus Gan MD #### LIPR, VD25 #### [address] [id number] Heavy Duty Diesel Mechanic: Drew Craven MD Protein [Mass/Vol] 7.1 g/dL Normal 6.4-8.3 [facility] Comment on above: Performed By: #### M G, TSHX, CDP, CP #### [facility] [address] [place], [place] [phone] Heavy Duty Diesel Mechanic: Lazarus Gan MD #### LIPR, VD25 #### [address] [id number] Heavy Duty Diesel Mechanic: Drew Craven MD Sodium [Moles/Vol] 141 mmol/L Normal 135-144 [facility] Comment on above: Performed By: #### M G, TSHX, CDP, CP #### [facility] [address] [place], [place] 136[address] Heavy Duty Diesel Mechanic: Lazarus Gan MD #### LIPR, VD25 #### [address] [id number] Heavy Duty Diesel Mechanic: Drew Craven MD Urea nitrogen [Mass/Vol] 10 mg/dL Normal 8-23 [facility] Comment on above: Performed By: #### M G, TSHX, CDP, CP #### [facility] [address] [place] [address] Heavy Duty Diesel Mechanic: Lazarus Gan MD #### ROSALINDA, VD25 #### [facility] [address] [place] [address] Heavy Duty Diesel Mechanic: Drew Craven MD Comprehensive Metabolic [facility] 04-01-2024 Albumin [Mass/Vol] 4.1 g/dL 3.5 - 5.2 g/dL [facility] ALP [Catalytic activity/Vol] 59 U/L 35 - 104 U/L [facility] ALT [Catalytic activity/Vol] 24 U/L 5 - 33 U/L [facility] Anion gap [Moles/Vol] 11 mmol/L 9 - 17 mmol/L [facility] AST [Catalytic activity/Vol] 20 U/L NINF - 32 U/L [facility] Bilirubin [Mass/Vol] 0.9 mg/dL 0.3 - 1 .2 mg/dL [facility] Calcium [Mass/Vol] 10.0 mg/dL 8.6 - 10. 4 mg/dL [facility] Chloride [Moles/Vol] 106 mmol/L 98 - 10 7 mmol/L [facility] CO2 [Moles/Vol] 24 mmol/L 20 - 31 mmol/L [facility] Creatinine [Mass/Vol] 0.7 mg/dL 0.5 - 0.9 mg/dL [facility] Est, Glom Filt Rate - PINF [facility] Comment on above: These results are not intended for use [...] following therapy that affects renal tubular secretion. Glucose [Mass/Vol] 117 mg/dL High 70 - 99 mg/dL [facility] Interpretation and review of laboratory results Abnormal [facility] Potassium [Moles/Vol] 3.7 mmol/L 3.7 - 5.3 mmol/L [facility] [employer] Protein [Mass/Vol] 7.1 g/dL 6.4 - 8.3 g/dL [facility] Sodium [Moles/Vol] 141 mmol/L 135 - 144 mmol/L [facility] [employer] Urea nitrogen [Mass/Vol] 10 mg/dL 8 - 23 mg/dL [facility] [employer] Urea nitrogen/Creatinine [Mass ratio] 14 mg/mg 9 - 20 [facility] [employer] EKG 12 LeadOrdered By: Unkno wn Result on 04-01-2024 Atrial Rate 64 BPM [facility] [employer] P [place] 64 degrees [facility] [employer] P-R Interval 204 ms [facility] [employer] Q-T Interval 408 ms [facility] [employer] QRS Duration 84 ms [facility] [employer] QTc Calculation (Bazett) 420 ms [facility] [place] 34 degrees [facility] [place] 23 degrees [facility] Ventricular Rate 64 BPM [facility] E[facility] 12 Leadon 04-01-2024 Normal sinus rhythm Nonspecific ST abnormality Abnormal ECG When compared with ECG of 09-APR-2023 08:33, No significant change was found [facility] Result, Unknown Provider - 04/01/2024 Normal sinus rhythm Nonspecific ST abnormality Abnormal ECG When compared with ECG of 09-APR-2023 08:33, No significant change was found [facility] Lipid Panelon 04-01-2024 Cholesterol [Mass/Vol] 181 mg/dL 0 - 199 mg/dL [facility] Comment on above: Cholesterol Guidelines: <200 Desirable 200-240 Borderline >240 Undesirable Cholesterol in HDL [Mass/Vol] 48 mg/dL 40 - PINF mg/dL [facility] [employer] Comment on above: HDL Guidelines: <40 Undesirable 40-59 Borderline >59 Desirable Cholesterol in LDL [Mass/Vol] 112 mg/dL High 0 - 100 mg/dL [facility] [employer] Comment on above: LDL Guidelines: <100 Desirable 100-129 Near to/above Desirable 130-159 Borderline >159 Undesirable Direct (measured) LDL and calculated LDL are not interchangeable tests. Cholesterol in VLDL [Mass/Vol] 21 mg/dL 1 - 30 mg/dL [facility] Cholesterol.total/Ch olesterol in HDL [Mass ratio] 3.8 {ratio} [facility] Interpretation and review of laboratory results Abnormal [facility] Triglyceride [Mass/Vol] 106 mg/dL NINF - 150 mg/dL [facility] Comment on above: Triglyceride Guidelines: <150 Desirable 150-199 Borderline 200-499 High >499 Very high Based on AHA Guidelines for fasting triglyceride, February 2012. Lipid Profileon 04-01-2024 Cholesterol [Mass/Vol] 181 mg/dL Normal 0-199 [facility] Comment on above: Result Comment: Cholesterol Guidelines: <200 Desirable 200-240 Borderline >240 Undesirable Performed By: #### Crystal Lazcano, JENNIFER, BOBBI, CP ####[facility] [address] [place] [address] Lab Director: Lazarus Gan MD#### ROSALINDA VD25 ####[facility] [address] [place], [place] [id number] Lab Director: Drew Craven MD Cholesterol in HDL [Mass/Vol] 48 mg/dL Normal >40 [facility] Comment on above: Result Comment: HDL Guidelines: <40 Undesirable 40-59 Borderline >59 Desirable Performed By: #### Crystal Lazcano, JENNIFER, BOBBI, CP ####[facility] [address] [place] [address] Lab Director: Lazarus Gan MD#### LIPMariana, VD25 ####[facility] [address] [place] [address] Lab Director: Drew Craven MD Cholesterol in LDL [Mass/Vol] 112 mg/dL High 0-100 [facility] Comment on above: Result Comment: LDL Guidelines: <100 Desirable 100-129 Near to/above Desirable 130-159 Borderline >159 Undesirable Direct (measured) LDL and calculated LDL are not interchangeable tests. Performed By: #### Crystal Lazcano, TSHEsete, BOBBI, CP ####[facility] [address] [place] [address] Lab Director: Lazarus Gan MD#### LIPR, VD25 ####[facility] [place] [address] Lab Director: Drew Craven MD Cholesterol in VLDL [Mass/Vol] 21 mg/dL Normal 1-30 [facility] Comment on above: Performed By: #### JENNIFER Carter CDP, CP ####[facility] [address] [place] [address] Lab Director: Lazarus Gan MD#### LIPMariana, VD25 ####[facility] [place], [place] [phone] Director: Drew Craven MD Cholesterol.total/Ch olesterol in HDL [Mass ratio] 3.8 {ratio} Normal [facility] Comment on above: Performed By: #### JENNIFER Carter CDP, CP ####[facility] [address] [place] [address] Lab Director: Lazarus Gan MD#### LIPMariana, VD25 ####[place] [address] [place], [place] [phone] Director: Drew Craven MD Triglyceride [Mass/Vol] 106 mg/dL Normal <150 [facility] Comment on above: Result Comment: Triglyceride Guidelines: <150 Desirable 150-199 Borderline 200-499 High >499 Very high Based on AHA Guidelines for fasting triglyceride, February 2012. Performed By: #### JENNIFER Carter CDP, CP ####[facility] [address] [place], [place] [phone] Director: Lazarus Gan MD#### LIPR, VD25 ####[facility] [place], [place] [phone] Director: Drew Craven MD Magnesiumon 04-01-2024 Magnesium [Mass/Vol] 2.1 mg/dL 1.6 - 2 .6 mg/dL [facility] Magnesium [Mass/Vol] 2.1 mg/dL Normal 1.6-2.6 [facility] Comment on above: Performed By: #### M G, TSHX, CDP, CP #### [facility] [address] [place], [place] [phone] Heavy Duty Diesel Mechanic: Lazarus Gan MD #### CLAYTON25 #### [employer] [address] [place] [address] Heavy Duty Diesel Mechanic: Drew Craven MD No Panel Informationon 04-01 [facility] TSH w/reflex to FT4on 2023 Thyroid Stim. Horm. 2.64 uIU/mL Normal 0.30-5.00 [facility] Comment on above: Performed By: #### Crystal Lazcano, TSHX, CDP, CP #### [facility] [address] [place] [address] Heavy Duty Diesel Mechanic: Lazarus Gan MD #### CLAYTON25 #### [employer] [address] [place] [address] Heavy Duty Diesel Mechanic: Drew Craven MD TSH with Reflexon 04-01-2024 TSH Qn 2.64 m[IU]/L [facility] Vitamin D 25 Hydroxyon 04-01 25-hydroxyvitamin D3 [Mass/Vol] 54.5 ng/mL 30.0 - 100.0 ng/mL [facility] Comment on above: Reference Range: Vitamin D status Range Deficiency <20 ng/mL Mild Deficiency 20-30 ng/mL Sufficiency 30-100 ng/mL Toxicity >100 ng/mL Vitamin D 25 OHon 04-01-2024 Vitamin D 25 [place] 54.5 ng/mL Normal 30.0-100.0 [facility] Comment on above: Result Comment: Reference Range: Vitamin D status Range Deficiency <20 ng/mL Mild Deficiency 20-30 ng/mL Sufficiency 30-100 ng/mL Toxicity >100 ng/mL Performed By: #### M G, TSHX, CDP, CP ####[facility] [address] [place], [place] [id number] lab Director: Lazarus Gan MD#### ROSALINDA, VD25 ####[facility] [address] [place] [address] Lab Director: Drew Craven MD XR Chest 2 Viewson Radiology Study observation (narrative) [facility] KRISSY DIGITAL SCREEN BILA TERALon 03-18-2024 JAMES KRISSY DIGITAL SCREEN BILATERAL HISTORY: Screening. Family history of breast carcinoma. [...] be mailed to the patient. Performing Facility: [facility] [address] [place], [place] [address] Interpreted by: Navid Armstrong Jr., MD Signed by: Navid Armstrong Jr., MD 03/18/24 Final result Normal [facility] Cult,Urineon 03-05-2024 Cult,Urine Specimen Description .CLEAN CATCH URINE Special Requests Site: Urine Culture ESCHERICHIA COLI >100,000 CFU/ML Report Status FINAL 03/06/2024 SUSCEPTIBILITY Organism ESCHERICHIA COLI Method NANCY Ampicillin >=32 RESISTANT Cefazolin 16 INTERMEDIATE Cefazolin sensitivity results can be used to predict the effectiveness of oral cephalosporins (eg. Cephalexin) in uncomplicated Urinary Tract Infections due to E. coli, K. pneumoniae, and P. mirabilis Ceftriaxone <=0.25 SUSCEPTIBLE ESBL NEGATIVE Gentamicin >=16 RESISTANT Levofloxacin <=0.12 SUSCEPTIBLE Nitrofurantoin <=16 SUSCEPTIBLE Piperacillin/Tazobacta m <=4 SUSCEPTIBLE Tobramycin 8 INTERMEDIATE Trimethoprim/Sulfa >=320 RESISTANT Resistant [facility] Comment on above: Performed By: #### U #### [facility] [address] [place] [address] Heavy Duty Diesel Mechanic: Drew Craven MD [facility] [address] [place] [address] Heavy Duty Diesel Mechanic: Lazarus Gan MD C Urineon 12-27-2023 Bacteria identified Cx Nom (U) Microbiology PROCEDURE: Urine Culture [R1] SOURCE: U CleanCatch BODY SITE: COLLECTED DATE/TIME: 12/24/2023 12:25 EDT RECEIVED DATE/TIME: 12/24/2023 17:44 EDT START DATE/TIME: 12/24/2023 17:44 EDT FREE TEXT SOURCE: Lashaun Rodriguez Alysha J FINAL REPORTS Final Report [] Verified Date/Time: 12/27/2023 09:22 EDT >100,000 cfu/ml Escherichia coli 1,000 cfu/ml Mixed skin contaminants SUSCEPTIBILITY RESULTS __ LEGEND: S=Susceptible, N/R=Not Reported, Blank=Data not available, or drug not advisable or tested, I=Intermediate, ESBL=Extended spectrum beta-lactamase, R=Resistant, TFG=Thymidine-dependen t strain, MAXI=Beta-lactamase positive, NANCY=mcg/m;(mg/L), S*=Predicted susceptible interp, R*=Predicted resistant interp EC Antibiotic NANCY Dilutn NANCY Interp Ampicillin >16 R Ampicillin/ >16/8 R Sulbactam Aztreonam <=4 S Cefazolin >16 R Cefepime <=2 S Ceftazidime <=1 S Ceftazidime/ <=8 S Avibactam Ceftriaxone <=1 S Cefuroxime 8 S Ciprofloxacin <=0.25 S Ertapenem <=0.5 S Gentamicin >8 R Levofloxacin <=0.5 S Meropenem <=1 S Nitrofurantoin <=32 S Piperacillin/ <=8 S Tazobactam Tetracycline <=4 S Tobramycin 8 I Trimethoprim/ >2/38 R Sulfa Performing Locations R1: This test was performed at: [facility], [address] [place] [address], [facility] , , [facility] Comment on above: Performed By: #### 2 [id number] #### [facility] [address] [place] [address] Ambulatory Visit Summaryon 0 12-24-2023 Ambulatory Visit [...] you for choosing us for your care. [facility] Ambulatory Visit Summaryon 0 11-16-2023 Ambulatory [...] with SANDRA SAMSON, SANTIAGO Sands When: Where: [address] [place], [place] [id number]- Medications What How Much When Instructions Unchanged [...] ? 8 oz (237 mL) of milk, hgvdoid-dqudoyoqpxxx-u airy milk, and calcium-fortifiedfruit juice. Calcium-fortified means that [...] textured (more content not included)... Normal [facility] Urology Office/Clinic Noteon 11-16-2023 Urology Office/Clinic [...] and K normal. After checking gray on [employer] for Effer-K 25mEq bid at [employer], it should only be $15-16. Will switch pt back to Effer-K 25mEq bid for appropriate stone prevention. Reports she tries to drink enough water, unsure of volume. CT AP w IV con 07/13/21 [facility] - no large or obstructing urinary tract [...] Information SANDRA SAMSON, Rachel Peña, URL [address] [place] [address]- Additional Instructions: Sched R ESWL Patient Education [...] virus vaccine, inactivated 02/16/2022 Recorded SARS-CoV-2 (COVID-19) [id number] 02/16/2022 Recorded pneumococcal 20-valent co (more content not included)... Normal [facility] Comment on above: Result Comment: Elec tronically Signed By: Rachel FLORES MD\.br\Date and Time Signed: 11/16/23 10:58 EDT\.br\Electronically Co-Signed By: Kristina Raymundo\.br\Date and Time Co-Signed: 11/16/23 10:54 EDT Cult,Urineon [...] RESISTANT Levofloxacin <=0.12 SUSCEPTIBLE Nitrofurantoin <=16 SUSCEPTIBLE Piperacillin/Tazobacta m 64 INTERMEDIATE Tobramycin 4 SUSCEPTIBLE Trimethoprim/Sulfa >=320 RESISTANT Resistant [facility] Comment on above: Performed By: #### U #### [employer] [address] [place] [address] Heavy Duty Diesel Mechanic: Drew Craven MD [facility] [address] [place] [address] Heavy Duty Diesel Mechanic: Lazarus Gan MD Cult,Urineon 10-07-2023 Cult,Urine Specimen [...] RESISTANT Levofloxacin <=0.12 SUSCEPTIBLE Nitrofurantoin <=16 SUSCEPTIBLE Piperacillin/Tazobacta m 32 INTERMEDIATE Tobramycin 2 SUSCEPTIBLE Trimethoprim/Sulfa >=320 RESISTANT Resistant [facility] Comment on above: Performed By: #### U #### [facility] [address] [place] [address] Heavy Duty Diesel Mechanic: Drew Craven MD [facility] [address] [place] [address] Heavy Duty Diesel Mechanic: Lazarus Gan MD ECG 12 leadon 03-20-2023 Atrial Rate [facility] P [place] [facility] P-R Interval [facility] Q-T Interval [facility] Q-T Interval (corrected) [facility] QRS Duration [facility] QTC Calculation (Bezet) [facility] R [place] [facility] T [place] [facility] Ventricular Rate [facility] CT CCTA HEART (FILLING SEPARATOR READ)on 03-15-2023 CT CCTA HEART (FILLING SEPARATOR READ) Cardiac Morphology CTA Prior to Cardioversion CPT code: 69327 Patient Name: Sapna Breen Age: 72 y.o. Requesting Physician: Interpreting Bluing Oven Tender:: Kaity Kinney M.D. Primary Care Physician: Medardo [...] Image Quality: Good. No significant artifacts. Scanner: [employer] DLP: 247 mGy Radiation dose reduction was [...] atrial appendage. Dictated by: KAITY KINNEY on [facility] Mar 15, 2023 9:43:09 AM EDT Transcribed by: KAITY KINNEY on [facility] Mar 15, 2023 9:43:09 AM EDT Finalized by: KAITY KINNEY on [facility] Mar 15, 2023 9:43:09 AM EDT Normal [facility] Basic metabolic 2000 panelon 11-06-2022 Anion gap [Moles/Vol] 11 mmol/L 10 - 20 mmol/L [facility] Calcium [Mass/Vol] 10.4 mg/dL High 8.4 - 10. 2 mg/dL [facility] Chloride [Moles/Vol] 110 mmol/L High 98 - 10 8 mmol/L [facility] Creatinine [Mass/Vol] 0.91 mg/dL 0.60 - 1.20 mg/dL [facility] GFR/1.73 sq M.predicted CKD-EPI (S/P/Bld) [Vol rate/Area] 67 - PINF [facility] Comment on above: Estimated GFR was ca lculated using the 2020 CKD-EPI creatinine equation. Glucose [Mass/Vol] 136 mg/dL High 65 - 99 mg/dL [facility] HCO3 [Moles/Vol] 22 mmol/L 21 - 32 mmol/L [facility] Interpretation and review of laboratory results Abnormal [facility] Potassium [Moles/Vol] 3.4 mmol/L Low 3.5 - 5.1 mmol/L [facility] Sodium [Moles/Vol] 140 mmol/L 135 - 145 mmol/L [facility] Urea nitrogen [Mass/Vol] 14 mg/dL 8 - 25 mg/dL [facility] Urea nitrogen/Creatinine [Mass ratio] 15.4 mg/mg 10.0 - 20.0 [facility] [place] [facility] has implemented the eGFR calculation approach that does not have a coefficient for race that conforms to the NKF-ASN Task Force Recommendations. [facility] [place] [facility] CT PULMONARY VEIN WITH RECON STRUCTIONS [...] contrast. CT pulmonary vein protocol was utilized. Bluing Oven Tender will interpret the pulmonary vein portion of [...] ID: [id number] Dictated by: KAYE VAZQUEZ on [facility] Mar 15, 2023 9:14:22 AM EDT Transcribed by: RAHEL RUSS on [facility] Mar 15, 2023 9:20:35 AM EDT Finalized by: KAYE VAZQUEZ on [facility] Mar 15, 2023 4:56:13 PM EDT Normal [facility] Comment on above: Order Comment: Injur y/Trauma or Illness?:Illness/Other How long have you had these symptoms (acute/chronic)?:Acute Reason for exam?:6 month f/u LAAO, supplemental read Type of Exam?:Subsequent/Follow-up Additional signs and symptoms?: ECG 12 leadon 11-06-2022 Atrial Rate [facility] P [place] [facility] P-R Interval [facility] Q-T Interval [facility] Q-T Interval (corrected) [facility] QRS Duration [facility] QTC Calculation (Bezet) [facility] R [place] [facility] T [place] [facility] Ventricular Rate [facility] Basic metabolic 2000 panelon 09-15-2022 Anion gap [Moles/Vol] 10 mmol/L 10 - 20 mmol/L [facility] Calcium [Mass/Vol] 9.6 mg/dL 8.4 - 10. 2 mg/dL [facility] Chloride [Moles/Vol] 113 mmol/L High 98 - 10 8 mmol/L [facility] Creatinine [Mass/Vol] 0.78 mg/dL 0.60 - 1.20 mg/dL [facility] GFR/1.73 sq M.predicted CKD-EPI (S/P/Bld) [Vol rate/Area] 80 - PINF [facility] Comment on above: Estimated GFR was ca lculated using the 2020 CKD-EPI creatinine equation. Glucose [Mass/Vol] 167 mg/dL High 65 - 99 mg/dL [facility] HCO3 [Moles/Vol] 24 mmol/L 21 - 32 mmol/L [facility] Interpretation and review of laboratory results Abnormal [facility] Potassium [Moles/Vol] 4.2 mmol/L 3.5 - 5.1 mmol/L [facility] Sodium [Moles/Vol] 143 mmol/L 135 - 145 mmol/L [facility] Urea nitrogen [Mass/Vol] 16 mg/dL 8 - 25 mg/dL [facility] Urea nitrogen/Creatinine [Mass ratio] 20.5 mg/mg High 10.0 - 20.0 [facility] [place] [facility] has implemented the eGFR calculation approach that does not have a coefficient for race that conforms to the NKF-ASN Task Force Recommendations. [facility] [place] [facility] CBC panel Auto (Bld)on 09-15 Erythrocyte distribution width (RBC) [Entitic vol] 14.4 % 11.6 - 14.8 % [facility] Hematocrit (Bld) [Volume fraction] 36.9 % 36.0 - 46.0 % [facility] Hemoglobin (Bld) [Mass/Vol] 11.8 g/dL Low 12.0 - 16.0 g/dL [facility] Interpretation and review of laboratory results Abnormal [facility] MCH (RBC) [Entitic mass] 31.1 pg 26.0 - 34.0 pg [facility] MCHC (RBC) [Mass/Vol] 32.0 g/dL 31.0 - 37.0 g/dL [facility] MCV (RBC) [Entitic vol] 97.1 fL 80.0 - 100.0 fL [facility] Nucleated RBC (Bld) [#/Vol] 0.00 10*3/uL [facility] Nucleated RBC/100 WBC (Bld) [Ratio] 0.0 % [facility] Platelet mean volume (Bld) [Entitic vol] 10.4 fL 9.4 - 12.4 fL [facility] Platelets (Bld) [#/Vol] 199 10*3/uL [facility] RBC (Bld) [#/Vol] 3.80 10*6/uL Low [facility] WBC (Bld) [#/Vol] 8.22 10*3/uL [facility] [place] [facility] ECHOCARDIOGRAM LIMITEDon ECHOCARDIOGRAM LIMITED Patient Info Name: SAPNA BREEN Age: 71 years : 1950 Gender: Female Ht: 163 cm Wt: 83 kg BSA: 1.97 m2 HR: 57 bpm BP: 111 / 68 mmHg Technical Quality: Good Exam Date: 09/15/2022 6:15 AM Patient Status: Inpatient Home Health Travel Ot: Araseli Blanton RCDS Exam Type: ECHOCARDIOGRAM LIMITED Study Info Indications I31.3 - Pericardial effusion (noninflammatory) Referring Physician: JUNIOR Ledezma; [id number] BMI: 31.41 kg/m2 Summary 1. A Limited [...] Kaity Kinney MD on 09/15/2022 08:53 AM [facility] Echocardiogram limitedon Patient Info Name: SAPNA BREEN Age: 71 years : 1950 Gender: Female Ht: 163 cm Wt: 83 kg BSA: 1.97 m2 HR: 57 bpm BP: 111 / 68 mmHg Technical Quality: Good Exam Date: 09/15/2022 6:15 AM Patient Status: Inpatient Home Health Travel Ot: Araseli Blanton RCDS Exam Type: ECHOCARDIOGRAM LIMITED Study Info Indications I31.3 - Pericardial effusion (noninflammatory) Referring Physician: JUNIOR Ledezma; [id number] BMI: 31.41 kg/m2 Summary 1. A Limited [...] Kaity Kinney MD on 09/15/2022 08:[address] [facility] Kaity Kinney MD - 09/15/2022 Patient Info Name: SAPNA BREEN Age: 71 years : 1950 Gender: Female Ht: 163 cm Wt: 83 kg BSA: 1.97 m2 HR: 57 bpm BP: 111 / 68 mmHg Technical Quality: Good Exam Date: 09/15/2022 6:15 AM Patient Status: Inpatient Home Health Travel Ot: Araseli Blanton RCDS Exam Type: ECHOCARDIOGRAM LIMITED Study Info Indications I31.3 - Pericardial effusion (noninflammatory) Referring Physician: JUNIOR Ledezma; [id number] BMI: 31.41 kg/m2 Summary 1. A Limited [...] Kaity Kinney MD on 09/15/2022 08:53 AM [facility] Radiology Study observation (narrative) [facility] Echocardiogram limitedOrdere d By: Kaity Kinney on 09-15-2022 [facility] Work Phone: XR CHEST AP/PA AND [...] SunSep 15, 2022 7:56:13 AM EDT Normal [facility] Comment on above: Order Comment: Injur y/Trauma or Illness?:Illness/Other How long have you had these symptoms (acute/chronic)?:Acute Reason for exam?:s/p LAAO with 27 mm WATCHMAN FLX History of cancer?:u Surgeries, chemotherapy, or radiation?:u Type of Exam?:Initial Additional signs and symptoms?:n XR Chest AP/PA and LATon No active disease. Please see above for discussion. Workstation ID: [id number] [employer] EXAMINATION: XR CHEST AP/PA AND LAT HISTORY: [...] see above for discussion. Workstation ID: [id number] [facility] Radiology Study observation (narrative) [facility] XR Chest AP/PA and LATOrdere d By: Octavia Molina on 09-15-2022 [facility] Work Phone: ACT Coag (Bld)on 09-14-2022 [employer] activated time Qn (Bld) 275 seconds [facility] [place] [facility] Blood type and Indirect anti body screen panel (Bld)on 09-14-2022 ABO and Rh group Nom (Bld) Blood group O Rh(D) positive [facility] Blood group antibody screen Ql Negative [facility] Specimen Expires 09/17/2022 23:59 EST [facility] [place] [facility] Cardiac Catheterizationon [facility] Radiology Study observation (narrative) [facility] ECHO DELMAR INTRAOP TRANSCATHET ER PROCEDUREon 09-14-2022 ECHO DELMAR INTRAOP TRANSCATHETER PROCEDURE Patient Info Name: SAPNA BREEN Age: 71 years : 1950 Gender: Female Ht: 163 cm Wt: 83 kg BSA: 1.97 m2 HR: 80 bpm BP: 172 / 90 mmHg Heart Rhythm: Atrial Fibrillation Technical Quality: Good Exam Date: 09/14/2022 11:18 AM Patient Status: Outpatient Home Health Travel Ot: Merry Ramirez RCDS Exam Type: ECHO DELMAR INTRAOP TRANSCATHETER PROCEDURE Study Info Indications I48.91 - Unspecified atrial fibrillation Referring Physician: ADELE Syed; [id number] BMI: 31.41 kg/m2 Summary 1. A complete [...] an iatrogenic atrial septal intra-atrial shunt with [id number]-[id number] flow on color Doppler. 3. The left [...] Antonio MD on 09/14/2022 03:22 PM Normal [facility] Echocardiogram intraop DELMAR loc benavides 09-14-2022 Patient Info Name: SAPNA BREEN Age: 71 years : 1950 Gender: Female Ht: 163 cm Wt: 83 kg BSA: 1.97 m2 HR: 80 bpm BP: 172 / 90 mmHg Heart Rhythm: Atrial Fibrillation Technical Quality: Good Exam Date: 09/14/2022 11:18 AM Patient Status: Outpatient Home Health Travel Ot: Merry Ramirez RCDS Exam Type: ECHO DELMAR INTRAOP TRANSCATHETER PROCEDURE Study Info Indications I48.91 - Unspecified atrial fibrillation Referring Physician: ADELE Syed; [id number] BMI: 31.41 kg/m2 Summary 1. A complete [...] an iatrogenic atrial septal intra-atrial shunt with vywn-ii-wtsal flow on color Doppler. 3. The left [...] Michelle Antonio MD on 09/14/2022 03:[address] [facility] Michelle Antonio M D - 09/14/2022 Patient Info Name: SAPNA BREEN Age: 71 years : 1950 Gender: Female Ht: 163 cm Wt: 83 kg BSA: 1.97 m2 HR: 80 bpm BP: 172 / 90 mmHg Heart Rhythm: Atrial Fibrillation Technical Quality: Good Exam Date: 09/14/2022 11:18 AM Patient Status: Outpatient Home Health Travel Ot: Merry Ramirez [facility]CDS Exam Type: ECHO DELMAR INTRAOP TRANSCATHETER PROCEDURE Study Info Indications I48.91 - Unspecified atrial fibrillation Referring Physician: [id number] Mckeon; [id number] BMI: 31.41 kg/m2 Summary 1. A complete [...] an iatrogenic atrial septal intra-atrial shunt with teli-qs-[id number] flow on color Doppler. 3. The left [...] Michelle Antonio MD on 09/14/2022 03:22 PM [facility] Radiology Study observation (narrative) [facility] Echocardiogram intraop DELMAR g uidanceOrdered By: Michelle Antonio on 09-14-2022 [facility] Work Phone: INR Coag (PPP) [Relative lana e]Ordered By: Fuentes Kovacs on 09-14-2022 Interpretation and review of laboratory results Normal [facility] PT Coag (PPP) [Time] 13.7 s [facility] During the induction phase of oral anticoagulation, the INR may not reflect the anticoagulation status of the patient. Therapeutic ranges for INR's are: Most clinical situations: INR 2.0-3.0 Mechanical Prosthetic Valve: INR 2.5-3.5 Critical: INR >5.0 [facility] - Blood bankon ABO and Rh group Nom (Bld) 5100 [facility] ABO and Rh group Nom (Bld) Blood group O Rh(D) positive [facility] No Panel Informationon 09-14 Cross Match Compatible [facility] Product ID Red Blood Cells [facility] Status Info Ready for issue [facility] PT/INROrdered By: Fuentes zuñiga on 09-14-2022 INR Coag (PPP) [Relative time] 1.1 {INR} 0.8 - 1.1 [facility] Prepare RBC: 2 Unitson 09-14 Product Code [id number] [facility] Product Code [id number] [facility] Unit Number [id number] [facility] Unit Number [id number] [facility] ECG 12 leadon 08-22-2022 Atrial Rate [facility] P [place] [facility] P-R Interval [facility] Q-T Interval [facility] Q-T Interval (corrected) [facility] QRS Duration [facility] QTC Calculation (Bezet) [facility] R [place] [facility] T [place] [facility] Ventricular Rate [facility] Electrolyte Panelon 10-11-19 Anion gap [Moles/Vol] 10 mmol/L 9 - 17 mmol/L [facility] Chloride [Moles/Vol] 110 mmol/L High 98 - 10 7 mmol/L [facility] CO2 [Moles/Vol] 23 mmol/L 20 - 31 mmol/L [facility] Interpretation and review of laboratory results Abnormal [facility] Potassium [Moles/Vol] 4.0 mmol/L 3.7 - 5.3 mmol/L [facility] Sodium [Moles/Vol] 143 mmol/L 135 - 144 mmol/L [facility] [place]uma 07-20-2021 BLADDER CANCER FISH FINDINGS Comment [facility] Comment on above: Result Comment: Nega tive UroVysion Result Fluorescence in situ hybridization (FISH) of cells recovered from urine was performed using the [employer] UroVysion Kit. A minimum of twenty-five cells was examined, and an abnormal signal pattern was not detected, indicating a NEGATIVE result. The performance characteristics of this test have been validated by [employer]. A positive result is the detection of four or more cells with greater than two signals for at least two chromosomes (3, and/or 7, and/or 17) and/or twelve or more cells with no signal for chromosome 9. Probes: 3cen(D3Z1), 7cen(D7Z1), 9p21(p16), 17cen(D17Z1) Performed By: #### F ISHUV #### [facility] [address] [place] [address] Dr. Red Longo CLINICAL DATA Comment Normal [facility] Comment on above: Result Comment: No c linical data specified Performed By: #### F ISHUV #### [facility] [address] [place] [address] Dr. Red Longo CPT CODES Comment Normal [facility] Comment on above: Result Comment: [id number] Performed By: #### F ISHUV #### [facility] [address] [place] [address] Dr. Red Longo ELECTRONICALLY SIGNED Comment Normal [facility] Comment on above: Result Comment: Josiah Hairston MD. Performed By: #### F ISHUV #### [facility] [address] [place] [address] Dr. Red Longo SPECIMEN DESCRIPTION Comment [facility] Comment on above: Result Comment: Rece ived is 60ml of yellow, cloudy, preserved urine. Performed By: #### F ISHUV #### [facility] [address] [place] [address] Dr. Red Longo Specimen type Nom (Spec) Comment Normal [facility] Comment on above: Result Comment: Unsp ecified Collection Method Performed By: #### F ISHUV #### [facility] [address] [address] [address] Red Longo BUN & Creatinineon Creatinine [Mass/Vol] 0.73 mg/dL 0.50 - 0.90 mg/dL [facility] G[facility] >60 >60 mL/min [facility] GFR Non- >60 >60 mL/min [facility] GFR/1.73 sq M.predicted MDRD (S/P/Bld) [Vol rate/Area] [facility] Comment on above: Average GFR for 70 o r more years old: 75 mL/min/1.73sq m Chronic Kidney Disease: <60 mL/min/1.73sq m Kidney failure: <15 mL/min/1.73sq m eGFR calculated using average adult body mass. Additional eGFR calculator available at: http://www.[facility]/multiple_crcl_2012.htm Urea nitrogen (BldV) [Mass/Vol] 14 mg/dL 8 - 23 mg/dL [facility] [facility] Electrolyte Panelon 07-13-19 Anion gap [Moles/Vol] 12 mmol/L 9 - 17 mmol/L [facility] Chloride [Moles/Vol] 105 mmol/L 98 - 10 7 mmol/L [facility] CO2 [Moles/Vol] 23 mmol/L 20 - 31 mmol/L [facility] Potassium [Moles/Vol] 3.8 mmol/L 3.7 - 5.3 mmol/L [facility] Sodium [Moles/Vol] 140 mmol/L 135 - 144 mmol/L [facility] No Panel Informationon 07-13 [facility] CYTOLOGYon 07-11-2021 SENT TO REF LAB 07/12/21 Normal [facility] Comment on above: Performed By: #### C YTO #### [facility] [address] [address] [address] Red Longo XR KUB 1 VIEWon [...] ANDREW POLANCO Date: 2021-04-04 17:07 Normal [facility] KRISSY DIGITAL SCREEN BILA TERALOrdered By: Medarod Robles on 03-03-2021 BI-RADS 1 - Negative , no evidence of malignancy. Normal interval followup in 12 months. OVERALL ASSESSMENT- NEGATIVE A letter of notification will be sent to the patient regarding the results. Ellie Phone: HISTORY: Screening. Family history of breast carcinoma. TECHNIQUE: Bilateral digital screening mammogram with CAD. 2-D and 3-D tomography. FINDINGS: Two views of each breast show scattered areas of fibroglandular density. No change from prior studies the most recent of 01/14/2020. Suspicious calcifications: None. Suspicious mass: None. (If skin markers were applied, circles represent skin lesions and linear markers represent scars.) Ellie Phone: Ellie Phone: CBC Auto Differentialon - Basophils (Bld) [#/Vol] 0.00 10*3/uL [place] Basophils/100 WBC (Bld) 1 % 0 - 2 % [place] Differential Type YES [place] Eosinophils (Bld) [#/Vol] 0.10 10*3/uL [place] Eosinophils/100 WBC (Bld) 2 % 0 - 5 % [place] Erythrocyte distribution width (RBC) [Ratio] 13.5 % 12.1 - 15.2 % [place] Hematocrit (Bld) [Volume fraction] 39.8 % 36 - 46 % [place] Hemoglobin (Bld) [Mass/Vol] 13.7 g/dL 12 - 16 g/dL [place] Interpretation and review of laboratory results Abnormal [place] Lymphocytes (Bld) [#/Vol] 1.60 10*3/uL [place] Lymphocytes/100 WBC (Bld) 37 % 15 - 40 % [place] MCH (RBC) [Entitic mass] 31.9 pg 26 - 34 pg [place] MCHC (RBC) [Mass/Vol] 34.4 g/dL 31 - 37 g/dL [place] MCV (RBC) [Entitic vol] 92.7 fL 80 - 100 fL [place] Monocytes (Bld) [#/Vol] 0.50 10*3/uL [place] Monocytes/100 WBC (Bld) 11 % High 4 - 8 % [place] Platelet mean volume (Bld) [Entitic vol] NOT REPORTED 6 - 12 fL [place] Platelets (Bld) [#/Vol] 206 10*3/uL [place] Platelets (Bld) [#/Vol] NOT REPORTED [place] RBC (Bld) [#/Vol] 4.30 10*6/uL 4 - 5.2 m/uL [place] RBC morphology finding Nom (Bld) NOT REPORTED [place] Segmented neutrophils/100 WBC (Bld) 49 % 47 - 75 % [place] Segs Absolute 2.20 [place] WBC (Bld) [#/Vol] 4.4 10*3/uL [place] WBC (Bld) [#/Vol] NOT REPORTED per 100 WBC [place] WBC Morphology NOT REPORTED [place] Comprehensive Metabolic Pane johnathon 04-13-2020 Albumin [Mass/Vol] 4.2 g/dL 3.5 - 5.2 g/dL [place] Albumin/Globulin [Mass ratio] NOT REPORTED [place] ALP [Catalytic activity/Vol] 60 U/L 35 - 104 U/L [place] ALT [Catalytic activity/Vol] 44 U/L High 5 - 33 U/L [place] Anion gap [Moles/Vol] 10 mmol/L 9 - 17 mmol/L [place] AST [Catalytic activity/Vol] 30 U/L <32 [place] Bilirubin Ql (U) 0.73 mg/dL 0.3 - 1.2 mg/dL [place] Bun/Cre Ratio 25 High [place] Calcium [Mass/Vol] 10.9 mg/dL High 8.6 - 10. 4 mg/dL [place] Chloride [Moles/Vol] 108 mmol/L High 98 - 10 7 mmol/L [place] CO2 [Moles/Vol] 20 mmol/L 20 - 31 mmol/L [place] Creatinine [Mass/Vol] 0.84 mg/dL 0.5 - 0.9 mg/dL [place] GFR >60 >60 mL/min [place] GFR Non- >60 >60 mL/min [place] GFR/1.73 sq M predicted among non-blacks MDRD (S/P/Bld) [Vol rate/Area] [place] Comment on above: Average GFR for 70 o r more years old: 75 mL/min/1.73sq m Chronic Kidney Disease: <60 mL/min/1.73sq m Kidney failure: <15 mL/min/1.73sq m eGFR calculated using average adult body mass. Additional eGFR calculator available at: http://www.[facility]/multiple_crcl_2012.htm GFR/1.73 sq M predicted among non-blacks MDRD (S/P/Bld) [Vol rate/Area] NOT REPORTED [place] Glucose [Mass/Vol] 117 mg/dL High 70 - 99 mg/dL [place] Potassium [Moles/Vol] 3.7 mmol/L 3.7 - 5.3 mmol/L [place] Protein [Mass/Vol] 7.4 g/dL 6.4 - 8.3 g/dL [place] Sodium [Moles/Vol] 138 mmol/L 135 - 144 mmol/L [place] Urea nitrogen [Mass/Vol] 21 mg/dL 8 - 23 mg/dL [place] Hemoglobin A1Con 11-24-2020 Glucose [Mass/Vol] 117 mg/dL [place] Comment on above: The ADA and AACC rec ommend providing the estimated average glucose result to permit better patient understanding of their HBA1c result. HbA1c (Bld) [Mass fraction] 5.7 % 4 - 6 % [place] Lipid Panelon 04-13-2020 Cholesterol [Mass/Vol] 192 mg/dL <200 [place] Comment on above: Cholesterol Guidelines: <200 Desirable 200-240 Borderline >240 Undesirable Cholesterol in HDL [Mass/Vol] 48 mg/dL >40 [place] Comment on above: HDL Guidelines: <40 Undesirable 40-59 Borderline >59 Desirable Cholesterol in LDL [Mass/Vol] 125 mg/dL 0 - 130 mg/dL [place] Comment on above: LDL Guidelines: <100 Desirable 100-129 Near to/above Desirable 130-159 Borderline >159 Undesirable Direct (measured) LDL and calculated LDL are not interchangeable tests. Cholesterol in VLDL [Mass/Vol] NOT REPORTED 1 - 30 mg/dL [place] Cholesterol.total/Ch olesterol in HDL [Mass ratio] 4 {ratio} <5 [place] Triglyceride [Mass/Vol] 97 mg/dL <150 [place] Comment on above: Triglyceride Guidelines: <150 Desirable 150-199 Borderline 200-499 High >499 Very high Based on AHA Guidelines for fasting triglyceride, February 2012. Magnesiumon 04-13-2020 Magnesium [Mass/Vol] 2.2 mg/dL 1.6 - 2 .6 mg/dL [place] Otheron 04-13-2020 Interpretation and review of laboratory results Abnormal [place] Immature granulocytes (Bld) [#/Vol] NOT REPORTED 0 % [place] Patient Fasting?on 0 Patient Fasting? yes [place] T4, Freeon 04-13-2020 Thyroxine, Free 1.05 ng/dL 0.93 - 1.7 ng/dL [place] TSH with Reflexon 04-13-2020 TSH Qn 5.86 m[IU]/L [place], [place] Vitamin D 25 Hydroxyon 04-13 Vit D, 25-Hydroxy 58 ng/mL 30 - 100 ng/mL [facility] [place] Comment on above: Reference Range: Vitamin D status Range Deficiency <20 ng/mL Mild Deficiency 20-30 ng/mL Sufficiency 30-100 ng/mL Toxicity >100 ng/mL XR CHEST (2 VW)on 04-13-2020 No acute heart or gurjit ng disease identified. [facility] [place] Frontal and lateral chest Clinical: Atrial fibrillation. COMPARISON: 04/21/2019. Heart and vascularity are unremarkable. Lungs are expanded and free of focal infiltrates. Mild spondylosis of the spine is noted. There is a slight to mild scoliotic deformity of the thoracolumbar spine with convexity to the right. [facility] [place] [employer] Incoming Radiant Results From [employer] App/[employer] - 04/13/2020 12:15 PM EST Frontal and lateral chest Clinical: Atrial fibrillation. COMPARISON: 04/21/2019. Heart and vascularity are unremarkable. Lungs are expanded and free of focal infiltrates. Mild spondylosis of the spine is noted. There is a slight to mild scoliotic deformity of the thoracolumbar spine with convexity to the right. IMPRESSION: No acute heart or lung disease identified. [facility] [employer] [place] Uric AcidOrdered By: Medardo haile on 06-16-2019 Interpretation and review of laboratory results Abnormal Ellie Phone: Urate [Mass/Vol] 9.9 mg/dL High 2.4 - 5.7 mg/dL Ellie Phone: CBC Auto Differentialon 12-0 Basophils (Bld) [#/Vol] 0.00 10*3/uL [place] Basophils/100 WBC (Bld) 0 % 0 - 2 % [place] Differential Type YES [facility] [place] Eosinophils (Bld) [#/Vol] 0.10 10*3/uL [place] Eosinophils/100 WBC (Bld) 1 % 0 - 5 % [place] Erythrocyte distribution width (RBC) [Ratio] 14.0 % 12.1 - 15.2 % [place] Hematocrit (Bld) [Volume fraction] 39.4 % 36 - 46 % [place] Hemoglobin (Bld) [Mass/Vol] 13.4 g/dL 12 - 16 g/dL [place] Lymphocytes (Bld) [#/Vol] 1.60 10*3/uL [place] Lymphocytes/100 WBC (Bld) 30 % 15 - 40 % [place] MCH (RBC) [Entitic mass] 31.8 pg 26 - 34 pg [place] MCHC (RBC) [Mass/Vol] 33.9 g/dL 31 - 37 g/dL [place] MCV (RBC) [Entitic vol] 93.7 fL 80 - 100 fL [place] Monocytes (Bld) [#/Vol] 0.40 10*3/uL [place] Monocytes/100 WBC (Bld) 8 % 4 - 8 % [place] Platelet mean volume (Bld) [Entitic vol] NOT REPORTED 6 - 12 fL [place] Platelets (Bld) [#/Vol] NOT REPORTED [place] Platelets (Bld) [#/Vol] 228 10*3/uL [place] RBC (Bld) [#/Vol] 4.21 10*6/uL 4 - 5.2 m/uL [place] RBC morphology finding Nom (Bld) NOT REPORTED [place] Segmented neutrophils/100 WBC (Bld) 61 % 47 - 75 % [place] Segs Absolute 3.30 [place] WBC (Bld) [#/Vol] 5.4 10*3/uL [place] WBC (Bld) [#/Vol] NOT REPORTED per 100 WBC [place] WBC Morphology NOT REPORTED [place] Comprehensive Metabolic Pane johnathon 04-21-2019 Albumin [Mass/Vol] 4.4 g/dL 3.5 - 5.2 g/dL [place] Albumin/Globulin [Mass ratio] NOT REPORTED [place] ALP [Catalytic activity/Vol] 63 U/L 35 - 104 U/L [place] ALT [Catalytic activity/Vol] 54 U/L High 5 - 33 U/L [place] Anion gap [Moles/Vol] 14 mmol/L 9 - 17 mmol/L [place] AST [Catalytic activity/Vol] 31 U/L <32 [place] Bilirubin Ql (U) 0.77 mg/dL 0.3 - 1.2 mg/dL [place] Bun/Cre Ratio 19 [place] Calcium [Mass/Vol] 10.8 mg/dL High 8.6 - 10. 4 mg/dL [place] Chloride [Moles/Vol] 104 mmol/L 98 - 10 7 mmol/L [place] CO2 [Moles/Vol] 22 mmol/L 20 - 31 mmol/L [place] Creatinine [Mass/Vol] 0.72 mg/dL 0.5 - 0.9 mg/dL [place] GFR >60 >60 mL/min [place] GFR Non- >60 >60 mL/min [place] GFR/1.73 sq M predicted among non-blacks MDRD (S/P/Bld) [Vol rate/Area] NOT REPORTED [place] GFR/1.73 sq M predicted among non-blacks MDRD (S/P/Bld) [Vol rate/Area] [place] Comment on above: Average GFR for 70 o r more years old: 75 mL/min/1.73sq m Chronic Kidney Disease: <60 mL/min/1.73sq m Kidney failure: <15 mL/min/1.73sq m eGFR calculated using average adult body mass. Additional eGFR calculator available at: http://www.[employer]You.Do/multiple_crcl_2012.htm Glucose [Mass/Vol] 122 mg/dL High 70 - 99 mg/dL [place] Interpretation and review of laboratory results Abnormal [place] Potassium [Moles/Vol] 3.6 mmol/L Low 3.7 - 5.3 mmol/L [place] Protein [Mass/Vol] 7.7 g/dL 6.4 - 8.3 g/dL [place] Sodium [Moles/Vol] 140 mmol/L 135 - 144 mmol/L [place] Urea nitrogen [Mass/Vol] 14 mg/dL 8 - 23 mg/dL [place] Lipid Panelon 04-21-2019 Cholesterol [Mass/Vol] 184 mg/dL <200 [place] Comment on above: Cholesterol Guidelines: <200 Desirable 200-240 Borderline >240 Undesirable Cholesterol in HDL [Mass/Vol] 52 mg/dL >40 [place] Comment on above: HDL Guidelines: <40 Undesirable 40-59 Borderline >59 Desirable Cholesterol in LDL [Mass/Vol] 111 mg/dL 0 - 130 mg/dL [place] Comment on above: LDL Guidelines: <100 Desirable 100-129 Near to/above Desirable 130-159 Borderline >159 Undesirable Direct (measured) LDL and calculated LDL are not interchangeable tests. Cholesterol in VLDL [Mass/Vol] NOT REPORTED 1 - 30 mg/dL [place] Cholesterol.total/Ch olesterol in HDL [Mass ratio] 3.5 {ratio} <5 [place] Triglyceride [Mass/Vol] 107 mg/dL <150 [place] Comment on above: Triglyceride Guidelines: <150 Desirable 150-199 Borderline 200-499 High >499 Very high Based on AHA Guidelines for fasting triglyceride, February 2012. Magnesiumon 04-21-2019 Magnesium [Mass/Vol] 2.2 mg/dL 1.6 - 2 .6 mg/dL [place] Otheron 04-21-2019 Immature granulocytes (Bld) [#/Vol] NOT REPORTED [place] Patient Fasting?on 9 Patient Fasting? yes [place] TSH with Reflexon 04-21-2019 TSH Qn 3.29 m[IU]/L [place] Vitamin D 25 Hydroxyon 04-21 Vit D, 25-Hydroxy 51.6 ng/mL 30 - 100 ng/mL [place] Comment on above: Reference Range: Vitamin D status Range Deficiency <20 ng/mL Mild Deficiency 20-30 ng/mL Sufficiency 30-100 ng/mL Toxicity >100 ng/mL XR CHEST STANDARD (2 VW)on 06-22-2018 Negative chest. [facility] [place] EXAM: XR CHEST (2 VW ) HISTORY: Reason for exam:->Afib COMPARISON: Chest 03/29/2018. TECHNIQUE: 2 views chest FINDINGS: Heart size normal. Lungs clear. Bony thorax and upper abdomen normal. [facility] [place] [employer] [employer] Incoming Radiant Results From [employer] App/[employer] - 04/21/2019 1:22 PM EST EXAM: XR CHEST (2 VW) HISTORY: Reason for exam:->Afib COMPARISON: Chest 03/29/2018. TECHNIQUE: 2 views chest FINDINGS: Heart size normal. Lungs clear. Bony thorax and upper abdomen normal. IMPRESSION: Negative chest. [facility] [place] Progress Noteon 04-05-2018 HIM IP Note OR Salesperson Men'S Hats Normal [facility] Progress Noteon 03-19-2018 HIM IP Note OR Salesperson Men'S [employer]ats Normal [facility] Progress Noteon 02-15-2018 HIM IP Note OR Salesperson Men'S [employer]ats Normal [facility] Progress Noteon 09-17-2017 HIM IP Note OR Salesperson Men'S [employer]ats Normal [facility] Vital Signs Date Time Vital Sign Value Performing Clinician Facility 07-29-2024 10:13040 Body height 162.6 cm Ximena Geremias HESS Work Phone: [facility] 07-29-2024 10:130400 Body mass index (BMI) [Ratio] 31.41 kg/m2 Ximena Archuleta CNP Work Phone: [facility] 07-29-2024 10:13040 Body weight 83.01 kg Ximena Archuleta CNP Work Phone: [facility] 07-29-2024 10:13040 Diastolic blood pressure 86 mm[Hg] Ximena Archuleta CNP Work Phone: [facility] 07-29-2024 10:13040 Heart rate 57 /min Ximena Archuleta CNP Work Phone: [facility] 07-29-2024 10:13-0400 SaO2% (BldA) [Mass fraction] 96 % Ximena Archuleta IMM[employer]RATION LAW SPECIALIST Work Phone: [facility] 07-29-2024 10:13-0400 Systolic blood pressure 145 mm[Hg] Ximena Archuleta IMM[employer]RATION LAW SPECIALIST Work Phone: [facility] 06-23-2024 09:50-0500 Diastolic blood pressure 73 mm[Hg] FEMI DOREEN [facility] 06-23-2024 09:50-0500 Heart rate 58 /min FEMI DOREEN [facility] 06-23-2024 09:50-0500 Respiratory rate 16 /min FEMI DOREEN [facility] 06-23-2024 09:50-0500 Systolic blood pressure 125 mm[Hg] FEMI DOREEN [facility] 11-16-2023 10:12-0400 Blood Pressure Location Rachel FLORES [facility] 11-16-2023 10:12-0400 Diastolic blood pressure 83 mm[Hg] Rachel FLORES [facility] 11-16-2023 10:12-0400 Heart rate 80 /min Rachel FLORES [facility] 11-16-2023 10:12-0400 Respiratory rate 16 /min Rachel FLORES [facility] 11-16-2023 10:12-0400 Systolic blood pressure 138 mm[Hg] Rachel FLORES [facility] 09-07-2023 08:33-0400 Body height 162.6 cm Ximena Archuleta IMM[employer]RATION LAW SPECIALIST Work Phone: [facility] 09-07-2023 08:33-0400 Body mass index (BMI) [Ratio] 31.76 kg/m2 Ximena Archuleta IMM[employer]RATION LAW SPECIALIST Work Phone: [facility] 09-07-2023 08:33-0400 Body weight 83.92 kg Ximena Archuleta IMM[employer]RATION LAW SPECIALIST Work Phone: [facility] 09-07-2023 08:33-0400 Diastolic blood pressure 73 mm[Hg] Ximena Archuleta IMM[employer]RATION LAW SPECIALIST Work Phone: [facility] 09-07-2023 08:33-0400 Heart rate 55 /min Ximena Archuleta IMM[employer]RATION LAW SPECIALIST Work Phone: [facility] 09-07-2023 08:33-0400 SaO2% (BldA) [Mass fraction] 98 % Ximena Archuleta IMM[employer]RATION LAW SPECIALIST Work Phone: [facility] 09-07-2023 08:33-0400 Systolic blood pressure 124 mm[Hg] Ximena Archuleta IMM[employer] LAW SPECIALIST Work Phone: [facility] 03-20-2023 09:18-0400 Diastolic blood pressure 81 mm[Hg] Ximena Archuleta IMM[employer]RATION [employer] SPECIALIST Work Phone: [facility] 03-20-2023 09:18-0400 Systolic blood pressure 150 mm[Hg] Ximena Archuleta IMMIGRATION LAW SPECIALIST Work Phone: [facility] 03-20-2023 09:13-0400 Body height 162.6 cm Ximena Archuleta IMMIGRATION LAW SPECIALIST Work Phone: [facility] 03-20-2023 09:13-0400 Body mass index (BMI) [Ratio] 31.93 kg/m2 Ximena Archuleta IMMIGRATION LAW SPECIALIST Work Phone: [facility] 03-20-2023 09:13-0400 Body weight 84.37 kg Ximena Archuleta IMMIGRATION LAW SPECIALIST Work Phone: [facility] 03-20-2023 09:13-0400 Heart rate 56 /min Ximena Archuleta IMMIGRATION LAW SPECIALIST Work Phone: [facility] 03-20-2023 09:13-0400 SaO2% (BldA) [Mass fraction] 96 % Ximena Archuleta CNP Work Phone: [facility] 11-17-2022 10:01-0400 Blood Pressure Location Rachel FLORES [facility] 11-17-2022 10:01-0400 Diastolic blood pressure 87 mm[Hg] Rachel FLORES [facility] 11-17-2022 10:01-0400 Heart rate 58 /min Rachel FLORES [facility] 11-17-2022 10:01-0400 Systolic blood pressure 137 mm[Hg] Rachel FLORES [facility] 11-06-2022 10:21-0400 Body mass index (BMI) [Ratio] 31.76 kg/m2 Ximena Archuleta IMMIGRATION LAW SPECIALIST Work Phone: [facility] 11-06-2022 10:21-0400 Body weight 83.92 kg Ximena Archuleta IMMIGRATION LAW SPECIALIST Work Phone: [facility] 11-06-2022 10:21-0400 Diastolic blood pressure 80 mm[Hg] Ximena Archuleta IMMIGRATION LAW SPECIALIST Work Phone: [facility] 11-06-2022 10:21-0400 Heart rate 64 /min Ximena Archuleta IMMIGRATION LAW SPECIALIST Work Phone: [facility] 11-06-2022 10:21-0400 SaO2% (BldA) [Mass fraction] 95 % Ximena Archuleta IMMIGRATION LAW SPECIALIST Work Phone: [facility] 11-06-2022 10:21-0400 Systolic blood pressure 125 mm[Hg] Ximena Archuleta IMMIGRATION LAW SPECIALIST Work Phone: [facility] 09-15-2022 08:29-0400 Heart rate 60 /min Pollo Angulo MD Work Phone: [facility] 09-15-2022 07:06-0400 Body temperature 98.01 [degF] Pollo Angulo MD Work Phone: [facility] 09-15-2022 07:06-0400 Diastolic blood pressure 76 mm[Hg] Pollo Angulo MD Work Phone: [facility] 09-15-2022 07:06-0400 Respiratory rate 12 /min Pollo Angulo MD Work Phone: [facility] 09-15-2022 07:06-0400 SaO2% (BldA) [Mass fraction] 96 % Pollo Angulo MD Work Phone: [facility] 09-15-2022 07:06-0400 Systolic blood pressure 149 mm[Hg] Pollo Angulo MD Work Phone: [facility] 09-14-2022 09:11-0400 Body height 162.6 cm Pollo Angulo MD Work Phone: [facility] 09-14-2022 09:11-0400 Body mass index (BMI) [Ratio] 31.41 kg/m2 Pollo Angulo MD Work Phone: [facility] 09-14-2022 09:11-0400 Body weight 83.01 kg Pollo Angulo MD Work Phone: [facility] 08-22-2022 08:06-0400 Diastolic blood pressure 86 mm[Hg] Pollo Angulo MD Work Phone: [facility] 08-22-2022 08:06-0400 Systolic blood pressure 147 mm[Hg] Pollo Angulo MD Work Phone: [facility] 08-22-2022 08:05-0400 Body weight 85 kg Pollo Angulo MD Work Phone: [facility] 08-22-2022 08:05-0400 Heart rate 61 /min Pollo Angulo MD Work Phone: [facility] 08-22-2022 08:05-0400 SaO2% (BldA) [Mass fraction] 95 % Pollo Angulo MD Work Phone: [facility] Encounters Encounter Date Encounter Type Care Provider Facility Start: 07-29-2024 End: 07-29-2024 Office outpatient visit 15 minutes Ximena Archuleta CNP Work Phone: [facility] Comment on above: Presence of Watchman left atrial appendage closure device (Primary Dx); PAF (paroxysmal atrial fibrillation) (HCC) Start: 07-29-2024 End: 07-29-2024 [facility] Start: 06-23-2024 End: 06-23-2024 ambulatory FEMI LOGAN Facility:[facility] Start: 06-23-2024 End: 06-23-2024 Lab Drop off FEMI LOGAN [facility] Start: 06-23-2024 End: 06-23-2024 ambulatory FEMI LOGAN Facility:[facility] Start: 06-23-2024 End: 06-23-2024 Patient encounter procedure FEMI LOGAN [facility] Start: 06-17-2024 End: 06-19-2024 ambulatory [facility] Start: 06-17-2024 End: 06-19-2024 Subsequent hospital visit by physician [facility] Additional Xray At [facility] Comment on above: Uric acid nephrolith iasis Start: 04-01-2024 End: 04-03-2024 ambulatory [facility] AUST[facility] Start: 04-01-2024 End: 04-03-2024 Subsequent hospital visit by physician [facility] Additional Xray At [facility] Comment on above: Paroxysmal atrial fi brillation (HCC); Mitral valve insufficiency, unspecified etiology; Mixed hyperlipidemia; Primary hypertension; Vitamin D deficiency disease Start: 03-13-2024 End: 03-15-2024 ambulatory [facility]O [facility] Start: 02-29-2024 End: 02-29-2024 ambulatory GARIMA CALVERT [facility] Start: 12-27-2023 ambulatory Rachel Mariana SANDRA Facili ty:[id number] Start: 12-24-2023 End: 12-24-2023 Lab Drop off Lashaunlnadry Mcintyre [facility] Start: 12-24-2023 End: 12-24-2023 ambulatory Lashaun Mcintyre Facility:[facility] Start: 12-24-2023 End: 12-24-2023 Patient encounter procedure Rachel R SANDRA [facility] Start: 11-16-2023 End: 11-16-2023 ambulatory Rachel FLORES Facility:[facility] Start: 11-16-2023 End: 11-16-2023 Patient encounter procedure Rachel R SANDRA [facility] Start: 11-06-2023 End: 11-06-2023 ambulatory JESSICA [facility] Start: 10-05-2023 End: 10-05-2023 ambulatory JESSICA [facility] Start: 09-07-2023 End: 09-11-[address] [facility] Start: 09-07-2023 End: 09-07-2023 Office outpatient visit 15 minutes Ximena Archuleta CNP Work Phone: [facility] Comment on above: Atrial fibrillation, unspecified type (HCC) (Primary Dx) Start: 09-07-2023 End: 09-07-2023 ambulatory [facility] Start: 03-20-2023 End: 03-20-2023 Office outpatient visit 15 minutes Ximena Archuleta CNP Work Phone: [facility] Comment on above: Atrial fibrillation, unspecified type (HCC) (Primary Dx); Presence of Watchman left atrial appendage closure device Start: 03-15-2023 End: 03-16-2023 ambulatory BRANDON [facility] Start: 03-02-2023 Documentation procedure Jack Escobar RN [facility] Start: 02-28-2023 Orders Only Jack Escobar RN [facility] Comment on above: Atrial fibrillation, chronic (HCC) (Primary Dx) Start: 11-17-2022 End: 11-17-2022 Patient encounter procedure Rachel FLORES [facility] Start: 11-13-2022 Refill Jack Escobar RN [facility] Comment on above: Medication Refill Start: 11-06-2022 End: 11-10-[address] [facility] Start: 11-06-2022 End: 11-06-2022 Office outpatient visit 15 minutes Ximena Archuleta CNP Work Phone: [facility] Comment on above: Atrial fibrillation, chronic (HCC) (Primary Dx); Presence of Watchman left atrial appendage closure device Start: 11-03-2022 End: 11-03-2022 Subsequent hospital visit by physician Medardo Robles MD Work Phone: [facility] Comment on above: Dysuria Start: 09-14-2022 Orders Only Jack Escobar RN [facility] Comment on above: Atrial fibrillation, chronic (HCC) (Primary Dx) Start: 09-14-2022 End: 09-15-2022 Evaluation and management of inpatient [facility] Start: 09-14-2022 End: 09-15-2022 Evaluation and management of inpatient brandon Angulo MD Work Phone: [facility] Cardiovascular Step Down Start: 09-11-2022 End: 09-15-[address] [facility] Start: 09-11-2022 End: 09-15-2022 Encounter for other preprocedural examination [facility] Start: 09-08-2022 Documentation procedure Jack Escobar RN [facility] Start: 08-30-2022 End: 09-03-2022 Orders Only Jack Escobar RN [facility] Comment on above: Pre-op testing (Prim fariha Dx); Atrial fibrillation, chronic (HCC) Start: 08-30-2022 Patient encounter status Jack Escobar RN [facility] Start: 08-28-2022 Orders Only Jack Escobar RN [facility] Comment on above: Atrial fibrillation, unspecified type (HCC) (Primary Dx); Atrial fibrillation, chronic (HCC) Atrial fibrillation, unspecified type (HCC) (Primary Dx) Medication Refill Start: 08-25-2022 Documentation procedure Jack Escobar RN [facility] Start: 08-22-2022 End: 08-22-2022 Office outpatient new 60 minutes Pollo Angulo MD Work Phone: [facility] Comment on above: Atrial fibrillation, unspecified type (HCC) (Primary Dx); Essential hypertension Start: 08-17-2022 Chart abstracting Ruby Carver [facility] Start: 08-16-2022 Documentation procedure Anna Michaels [facility] Start: 03-06-2022 End: 03-08-2022 Subsequent hospital visit by physician Steve Mammography [facility] Comment on above: Visit for screening mammogram Start: 10-10-2021 End: 10-10-2021 Subsequent hospital visit by physician Medardo Robles MD Work Phone: [facility] Start: 08-24-2021 End: 08-24-2021 Subsequent hospital visit by physician Medardo Robles MD Work Phone: [facility] Comment on above: Dysuria; Acute cystitis with hematuria Start: 07-13-2021 End: 07-13-2021 Subsequent hospital visit by physician Medardo Robles MD Work Phone: [facility] Start: 07-11-2021 End: 07-11-[address] RACHEL FLORES Facility:[facility] Start: 04-04-2021 End: 04-05-[address] DOCTOR FITZPATRICK Facility:[facility] Start: 03-03-2021 End: 03-05-2021 Subsequent hospital visit by physician Steve [facility]ammography [facility] Comment on above: Visit for screening mammogram Start: 02-28-2021 End: 02-28-2021 Subsequent hospital visit by physician Medardo Robles MD Work Phone: [facility] Comment on above: Dysuria Start: 04-13-2020 [...] by physician Medardo Robles MD Work Phone: [facility] Comment on above: Pain and swelling [...] Date Procedure Procedure Detail Performing Clinician Start: 07-29-2024 Ecg routine ecg w/le ast 12 lds w/i&r Ximena Archuleta CNP Work Phone: Start: 06-17-2024 Radiologic exam abdo men 1 view Rachel Flores MD Work Phone: Start: 04-01-2024 Ecg routine ecg w/le ast 12 lds w/i&r Kyle Austin MD Work Phone: Start: 04-01-2024 Radiologic exam ches t 2 views Kyle Austin MD Work Phone: Start: 04-01-2024 Comprehensive metabo lic panel Kyle Austin MD Work Phone: Start: 04-01-2024 Lipid panel Kyle caballero MD Work Phone: Start: 03-13-2024 Mammography Ximena chi IMMIGRATION LAW SPECIALIST Work Phone: Start: 09-07-2023 Ecg routine ecg w/le ast 12 lds w/i&r Ximena Archuleta IMMIGRATION LAW SPECIALIST Work Phone: Start: 03-20-2023 Ecg routine ecg w/le ast 12 lds w/i&r Ximena Archuleta IMMIGRATION LAW SPECIALIST Work Phone: Start: 03-09-2023 Mammography Ximena chi IMMIGRATION LAW SPECIALIST Work Phone: Start: 11-06-2022 Ecg routine ecg w/le ast 12 lds w/i&r Ximena Archuleta IMMIGRATION LAW SPECIALIST Work Phone: Start: 09-15-2022 Echo transthorc r-t [...] Angulo MD Work Phone: Start: 03-06-2022 Mammography Jaswantbrandon Chetan caceres MD Work Phone: Start: 10-10-2021 Electrolyte panel Patri [employer] Work Phone: Start: 09-14-2021 Procedure on heart valve Rachel FLORES Start: 07-13-2021 Electrolyte panel Patri ck R Flores Work Phone: Start: 03-03-2021 Screening mammograph y bi 2-view breast inc cad Medardo Robles MD Work Phone: Start: 04-13-2020 Radiologic exam ches t 2 views Kyle Bullardartemio Work Phone: Start: 04-13-2020 25 hydroxy includes fractions if performed Kyle Deleon Arceliafederico Work Phone: Start: 04-13-2020 Assay of free thyroxine Kyle Pancho Bullardartemio Work Phone: Start: 04-13-2020 Assay of magnesium Kyle Deleon Arceliafederico Work Phone: Start: 04-13-2020 Assay of thyroid sti mulating hormone tsh Kyle Austin Work Phone: Start: 04-13-2020 Blood count complete auto&auto difrntl wbc Kyle Austin Work Phone: Start: 04-13-2020 Comprehensive metabo lic panel Kyle Pancho Austin Work Phone: Start: 04-13-2020 Hemoglobin glycosylated a1c Kyle Pancho Austin Work Phone: Start: 04-13-2020 Lipid panel Kyle Pancho Arcelia arturaung Work Phone: Start: 04-13-2020 PATIENT FASTING? Kyle Pancho Bullardartemio Work Phone: Start: 04-13-2020 Ecg routine ecg [...] DTaP/Tdap/Td vaccine (2 - Td or Tdap) [facility] Start: 06-30-2032 Tetanus vaccination Tetanus: Every 10yrs [facility] Start: 04-01-2029 Lipid panel Lipids [facility] Start: 04-09-2028 Lipid panel Lipids [facility] Start: 04-11-2027 Lipid panel Lipids [facility] Start: 04-15-2026 Lipid panel [facility] Start: 06-14-2025 Colon cancer screen colonoscopy Colon cancer screen colonoscopy [place], [place] Start: 06-14-2025 Screening for malignant neoplasm of colon [facility] Start: 05-02-2025 Annual Wellness Visit (Medicare) Annual Wellness Visit (Medicare) [facility] Start: 05-01-2025 Depression Screen Depression Screen [facility] Start: 05-01-2025 Medicare Wellness Visit Medicare Wellness Visit [facility] Start: 04-13-2025 Lipid panel Lipid screen [facility] Work Phone: Start: 04-06-2025 End: 04-06-2025 Patient encounter procedure 04/06/2025 10:30 AM EST Office Visit [facility] [employer]el Inspector [address] [place] [phone] Shar Frias DO [address] [place] [address] 1 yr f/u [facility] [employer] Comment on above: 1 yr f/u Start: 03-13-2025 Screening for malignant neoplasm of breast Mammogram [facility] Start: 01-12-2025 ambulatory Ambulatory Facility:[facility] Start: 10-30-2024 End: 10-30-2024 Patient encounter procedure 10/30/2024 8:20 AM EDT Office Visit [facility] [address] [place] [address] Medardo Robles MD [address] [place] [address] 6 mos - HTN, Hyperlipidemia, gerd, afib, osteoporosis. [facility] Comment on above: 6 mos - HTN, Hyperlipidemia, gerd, afib, osteoporosis. Start: 06-26-2024 Depression Screen Depression Screen [facility] Start: 05-01-2024 End: 05-01-2024 Patient encounter procedure 05/01/2024 8:20 AM EST Office Visit [facility] [address] [place] [phone] Medardo Robles MD [address] [place] [address] AWV - 6 mos - HTN, gerd, afib, osteoporosis [facility] Comment on above: AWV - 6 mos - HTN, gerd, afib, osteoporo sis Start: 04-30-2024 Annual Wellness Visit (Medicare) Annual Wellness Visit (Medicare) [facility] Start: 04-30-2024 History and physical examination, annual for health maintenance Wellness Visit [facility] Start: 04-21-2024 Lipid panel Lipid screen [place], [place] Start: 04-21-2024 Lipid screen Lipid screen [facility] [place] Start: 04-07-2024 End: 04-07-2024 Patient encounter procedure 04/07/2024 10:30 AM EST Office Visit [facility] Dowel Inspector [address] [place] [phone] Kyle Austin MD [address] [place] [address] 1 year follow up labs ekg cxr [facility] [employer] Comment on above: 1 year follow up labs ekg cxr Start: 03-09-2024 Screening for malignant neoplasm of breast Mammogram [facility] Start: 03-06-2024 Screening for malignant neoplasm of breast Breast cancer screen [facility] Start: 01-20-2024 COVID-19 Vaccine ( season) COVID-19 Vaccine ( season) [facility] Start: 01-20-2024 COVID-19 Vaccine ( season) COVID-19 Vaccine ( season) [facility] Start: 01-20-2024 Influenza vaccination Influenza Vaccine (#1) [facility] Start: 12-20-2023 Influenza vaccination Flu vaccine (#1) [facility] Start: 12-12-2023 Respiratory Syncytial Virus Immunization: Risk, 60-74 Risk, or 75+ (1 - 1-dose 75+ series) Respiratory Syncytial Virus Immunization: Risk, 60-74 Risk, or 75+ (1 - 1-dose 75+ series) [facility] Start: 10-26-2023 Depression Screen Depression Screen [facility] Start: 09-07-2023 End: 09-07-2023 Patient encounter procedure 09/07/2023 9:00 AM EDT Office Visit [facility] [address] [facility] [place] [phone] Ximena Archuleta, IMMIGRATION LAW SPECIALIST [address] [place] [address] [facility] Start: 04-30-2023 End: 04-30-2023 Patient encounter procedure 04/30/2023 Office Visit Family Medicine Medardo Robles MD [address] [place] [address] [facility] Start: 04-27-2023 Annual Wellness Visit (AWV) Annual Wellness Visit (AWV) [facility] Start: 04-26-2023 History and physical examination, annual for health maintenance Wellness Visit [facility] Start: 04-19-2023 End: 04-19-2023 Patient encounter procedure 04/19/2023 Office Visit Cardiology Kyle Austin MD [address] [place] [address] [facility] [employer] Start: 03-29-2023 Lipid screen Lipid screen [facility] [place] Start: 03-20-2023 End: 03-20-2023 Patient encounter procedure 03/20/2023 9:30 AM EDT Office Visit [facility] [address] [facility] [place] [phone] Ximena Archuleta, IMMIGRATION LAW SPECIALIST [address] [place] [address] [facility] Start: 03-16-2023 End: 09-15-2023 CT Pulmonary Vein With Reconstructions 3D CT Pulmonary Vein With Reconstructions 3D Imaging Routine Atrial fibrillation, chronic (HCC) Expected: 03/16/2023, Expires: 09/15/2023 [facility] Work Phone: Comment on above: Expected: 03/16/2023, Expires: Start: 03-15-2023 End: 03-15-2023 Patient encounter procedure 03/15/2023 9:00 AM EDT Appointment [facility] CT Scan [address] [place] [address] Pollo Angulo MD [address] [place] [address] [facility] [address] Scan Start: 03-06-2023 Screening for malignant neoplasm of breast Mammogram [facility] Start: 03-03-2023 Screening for malignant neoplasm of breast Breast cancer screen [facility] Start: 01-19-2023 COVID-19 Vaccine ( season) COVID-19 Vaccine ( season) [facility] Start: 01-19-2023 Influenza vaccination Sequential Influenza Vaccine (#1) [facility] Start: 11-06-2022 End: 11-06-2022 Patient encounter procedure 11/06/2022 10:30 AM EDT Office Visit [facility] [address] [facility] [place] [phone] Ximena Archuleta CNP [address] [place] [address] [facility] Start: 09-14-2022 End: 09-14-2022 Admission to same day surgery center [facility] Cardiovascular Lab Comment on above: Left Atrial Appendage Closure Start: 09-14-2022 Subsequent hospital visit by physician [facility] Procedural Care Unit Start: 09-05-2022 End: 08-31-2023 Blood type and Indirect antibody screen panel - Blood Type and Screen Blood Bank Routine Pre-op testing Expected: 09/05/2022, Expires: 08/31/2023 [facility] Comment on above: Expected: 09/05/2022, Expires: 4 Start: 09-05-2022 End: 08-31-2023 Complete blood count with white cell differential, manual CBC and differential Lab Routine Pre-op testing Expected: 09/05/2022, Expires: 08/31/2023 [facility] Work Phone: Comment on above: Expected: 09/05/2022, Expires: 4 Start: 09-05-2022 End: 08-31-2023 Comprehensive metabolic 2000 panel - Serum or Plasma Comprehensive metabolic panel Lab Routine Pre-op testing Expected: 09/05/2022, Expires: 08/31/2023 [facility] Comment on above: Expected: 09/05/2022, Expires: Start: 09-05-2022 End: 08-31-2023 INR in Platelet poor plasma by Coagulation assay Protime-INR Lab Routine Pre-op testing Atrial fibrillation, chronic (HCC) Expected: 09/05/2022, Expires: 08/31/2023 [facility] Comment on above: Expected: 09/05/2022, Expires: 4 Start: 09-05-2022 End: 09-05-2022 Patient encounter procedure [facility] CT Scan Start: 08-24-2022 Depression Screen Depression Screen [facility] Start: 08-22-2022 End: 08-22-2022 Patient encounter procedure 08/22/2022 8:00 AM EDT Office Visit [facility] [address] [facility] [place] [address] Pollo Angulo MD [address] [place] [address] [facility] Start: 07-13-2022 Creatinine measurement Creatinine monitoring [facility] Start: 07-13-2022 Potassium monitoring Potassium monitoring [facility] Start: 04-26-2022 Annual Wellness Visit (AWV) Annual Wellness Visit (AWV) [facility] Start: 04-26-2022 End: 04-26-2022 Patient encounter procedure 04/26/2022 Office Visit Family Medardo Schaffer MD [address] [place] [phone] [facility] Start: 04-25-2022 Depression Screen Depression Screen [facility] Start: 04-25-2022 Hemoglobin A1c measurement A1C test (Diabetic or Prediabetic) [facility] Start: 04-20-2022 End: 04-20-2022 Patient encounter procedure 04/20/2022 Office Visit Cardiology Kyle Austin MD [address] [place] [address] [facility] [employer] Start: 01-19-2022 Influenza vaccination [facility] Start: 01-13-2022 Screening for malignant neoplasm of breast Breast cancer screen [place], [place] Start: 10-24-2021 End: 10-24-2021 Patient encounter procedure 10/24/2021 Office Visit Family Medardo Schaffer MD [address] [place] [id number] [facility] Start: 04-25-2021 End: 04-25-2021 Patient encounter procedure 04/25/2021 Office Visit Family Medardo Schaffer MD [address] [place] [phone] [facility] Start: 04-21-2021 End: 04-21-2021 Patient encounter procedure 04/21/2021 Office Visit Cardiology Kyle Austin MD [address] [place] [address] [facility] [employer]el [employer] Start: 04-13-2021 Creatinine measurement Creatinine monitoring [facility] Work Phone: Start: 04-13-2021 Hemoglobin A1c measurement A1C test (Diabetic or Prediabetic) [facility] Work Phone: Start: 04-13-2021 Potassium monitoring Potassium monitoring [facility] [employer] Phone: Start: 04-04-2021 Shingles Vaccine (2 of 2) Shingles Vaccine (2 of 2) [facility] [employer] Phone: Start: 03-03-2021 End: 03-03-2021 Patient encounter procedure 03/03/2021 Appointment Radiology [facility] Start: 02-18-2021 Annual Wellness Visit (AWV) Annual Wellness Visit (AWV) [place], [place] Start: 02-17-2021 Pneumococcal 65+ years Vaccine (2 - PCV) Pneumococcal 65+ years Vaccine (2 - PCV) [facility] Start: 01-19-2021 Influenza vaccination Flu vaccine (#1) [facility] Start: 10-04-2020 Breast cancer screen Breast cancer screen [place], [place] Start: 04-22-2020 End: 04-22-2020 Office Visit 04/22/2020 Office Visit Cardiology Kyle Austin MD [address] [place] [address] [facility] [employer] Start: 04-21-2020 Creatinine measurement Creatinine monitoring [place], [place] Start: 04-21-2020 Creatinine monitoring Creatinine monitoring [place], [place] Start: 04-21-2020 Potassium monitoring Potassium monitoring [place] Start: 04-21-2020 End: 04-21-2020 Office Visit 04/21/2020 Office Visit Family Medicine Medardo Robles MD [address] [place], [place] [id number] [facility] Start: 03-18-2020 Pneumococcal 65+ years Vaccine (1 of 1 - PPSV23) Pneumococcal 65+ years Vaccine (1 of 1 - PPSV23) [place] Comment on above: Postponed from 2013 (Patient Refus ed) Start: 01-20-2020 Influenza vaccination Flu vaccine (#1) [place] Start: 01-10-2020 Annual Wellness Visit (AWV) Annual Wellness Visit (AWV) [place] Start: 09-17-2019 End: 09-17-2019 Office Visit 09/17/2019 Office Visit Family Medicine Medardo Robles MD [address] [place] [address] [phone] [facility] Start: 04-28-2019 End: 04-28-2019 Office Visit 04/28/2019 Office Visit Cardiology Kyle Austin MD [address] [place] [address] [facility] [employer] Start: 03-29-2019 Creatinine monitoring Creatinine monitoring [place], [place] Start: 03-29-2019 Potassium monitoring Potassium monitoring [place] Start: 01-19-2019 Influenza vaccination Flu vaccine (#1) [place] Start: 2013 Fall risk assessment Falls Risk Assessment [facility] Start: 2013 Pneumococcal Vaccine: Age 65+ (1 - PCV) Pneumococcal Vaccine: Age 65+ (1 - PCV) [facility] Start: 1998 Administration of herpes zoster vaccine Zoster Vaccines (1 of 2) [facility] Start: 1998 Screening for malignant neoplasm of colon Flexible sigmoidoscopy [facility] Start: 1998 Shingles Vaccine (1 of 2) Shingles Vaccine (1 of 2) [place] Start: 1993 Screening for malignant neoplasm of colon [facility] Start: 1988 Diabetes screen Diabetes screen [place], [place] Start: 1988 Screening for malignant neoplasm of breast Mammogram [facility] Start: 12-12-1967 DTaP/Tdap/Td vaccine (1 - Tdap) DTaP/Tdap/Td vaccine (1 - Tdap) [facility] Start: 1966 Hepatitis C screening [facility] Start: 1960 Depression screening using PHQ-9 (Patient Health Questionnaire 9) score [facility] Start: 12-12-1959 DTaP/Tdap/Td vaccine (1 - Tdap) DTaP/Tdap/Td vaccine (1 - Tdap) [place] Start: 1958 HbA1c (Bld) [Mass fraction] A1C test (Diabetic or Prediabetic) [place] Start: 12-12-1951 History and physical examination, annual for health maintenance Wellness Visit [facility] Start: 06-13-1949 COVID-19 Vaccine (#1) COVID-19 Vaccine (#1) [facility] Start: 1948 Hepatitis C screen Hepatitis C screen [place], [place] Start: 1948 Hepatitis C screening Hepatitis C screen [facility] Start: 1948 Screening for malignant neoplasm of colon [facility] Start: 1948 Screening for osteoporosis Dexa Scan [facility] Start: 1948 Tetanus vaccination Tetanus: Every 10yrs [facility] 12 lead ECG ECG 12 Lead ECG Routine Atrial fibrillation, unspecified type (HCC) 09/07/2023 8:45 AM EDT [facility] End: 08-29-2023 Basic metabolic 2000 panel - Serum or Plasma Basic metabolic panel Lab Routine Atrial fibrillation, unspecified type (HCC) 1 Occurrences starting 08/28/2022 until 08/29/2023 [facility] Work Phone: Comment on above: 1 Occurrences starting 08/28/2022 until 08/29/2023 End: 02-29-2024 Basic metabolic 2000 panel - Serum or Plasma Basic metabolic panel Lab Routine Atrial fibrillation, chronic (HCC) 1 Occurrences starting 02/28/2023 until 02/29/2024 [facility] Comment on above: 1 Occurrences starting 02/28/2023 until 02/29/2024 End: 07-22-2024 Basic metabolic 2000 panel - Serum or Plasma Basic metabolic panel Lab Routine Atrial fibrillation, unspecified type (HCC) 1 Occurrences starting 09/07/2023 until 07/22/2024 [facility] Comment on above: 1 Occurrences starting 09/07/2023 until 07/22/2024 Basic metabolic 2000 panel - Serum or Plasma Basic metabolic panel Lab Routine Atrial fibrillation, unspecified type (HCC) 09/07/2023 9:08 AM EDT [facility] End: 07-25-2025 Basic metabolic 2000 panel - Serum or Plasma Basic metabolic panel Lab Routine PAF (paroxysmal atrial fibrillation) (HCC) 1 Occurrences starting 07/29/2024 until 07/25/2025 [facility] Comment on above: 1 Occurrences starting 07/29/2024 until 07/25/2025 End: 02-29-2024 Complete blood count with white cell differential, manual CBC and differential Lab Routine Atrial fibrillation, chronic (HCC) 1 Occurrences starting 02/28/2023 until 02/29/2024 [facility] Work Phone: Comment on above: 1 Occurrences starting 02/28/2023 until 02/29/2024 End: 07-22-2024 Complete blood count with white cell differential, manual CBC and differential Lab Routine Atrial fibrillation, unspecified type (HCC) 1 Occurrences starting 09/07/2023 until 07/22/2024 [facility] Work Phone: Comment on above: 1 Occurrences starting 09/07/2023 until 07/22/2024 Complete blood count with white cell differential, manual CBC and differential Lab Routine Atrial fibrillation, unspecified type (HCC) 09/07/2023 9:08 AM EDT [facility] End: 07-25-2025 Complete blood count with white cell differential, manual CBC and differential Lab Routine PAF (paroxysmal atrial fibrillation) (HCC) 1 Occurrences starting 07/29/2024 until 07/25/2025 [facility] Work Phone: Comment on above: 1 Occurrences starting 07/29/2024 until 07/25/2025 End: 08-29-2023 CT Pulmonary Vein With Reconstructions 3D CT Pulmonary Vein With Reconstructions 3D Imaging Routine Atrial fibrillation, unspecified type (HCC) 1 Occurrences starting 08/28/2022 until 08/29/2023 [facility] Comment on above: 1 Occurrences starting 08/28/2022 until 08/29/2023 End: 03-08-2020 Culture, Urine Culture, Urine Microbiology Routine Complicated UTI (urinary tract infection) 1 Occurrences starting 03/08/2020 until 03/08/2020 [place] Comment on above: 1 Occurrences starting 03/08/2020 until 03/08/2020 Culture, Urine [facility] End: 02-28-2021 Culture, Urine Culture, Urine Microbiology Routine Dysuria 1 Occurrences starting 02/28/2021 until 02/28/2021 [facility]: Comment on above: 1 Occurrences starting 02/28/2021 until 02/28/2021 End: 08-24-2021 Culture, Urine [facility] [employer] Work Phone: Comment on above: 1 Occurrences starting 08/24/2021 until 08/24/2021 End: 11-03-2022 Culture, Urine [facility] Comment on above: 1 Occurrences starting 11/03/2022 until 11/03/2022 End: 10-29-2023 Echocardiography Echocardiogram complete Echocardiography Routine Atrial fibrillation, unspecified type (HCC) Atrial fibrillation, chronic (HCC) 1 Occurrences starting 08/28/2022 until 10/29/2023 [facility] Work Phone: Comment on above: 1 Occurrences starting 08/28/2022 until 10/29/2023 EKG 12 Lead [facility] [place] [place] LEFT ATRIAL APPENDAG E LIGATION LEFT ATRIAL APPENDAGE LIGATION atrial fibrillation [facility] End: 03-06-2022 JAMES KRISSY DIGITAL SCREEN BILATERAL [facility] Work Phone: Comment on above: 1 Occurrences starting 03/06/2022 until 03/06/2022 Immunizations Immunization Date Immunization Notes Care Provider [facility] 01-17-2024 RSV, AREXVY, (age 60y+), PF, IM, 0.5mL Medardo Robles MD Work Phone: [facility] 04-16-2023 influenza virus vaccine, unspecified formulation FEMI LOGAN [facility] 04-16-2023 Influenza, FLUAD, (a ge 65 y+), IM, Quadv, 0.5mL Medardo Robles MD Work Phone: [facility] 06-30-2022 tetanus toxoid, redu fareed diphtheria toxoid, and acellular pertussis vaccine, adsorbed Rachel FLORES [facility] 02-16-2022 influenza virus vaccine, unspecified formulation Rachel FLORES [facility] 02-16-2022 Influenza, FLUAD, (a ge 65 y+), Adjuvanted, 0.5mL Medardo Robles MD Work Phone: [facility] 02-16-2022 SARS-CoV-2 (COVID-19 ) [id number] Rachel SANDRA [facility] 01-09-2022 Pneumococcal, PCV20, PREVNAR 20, (age 18y+), IM, 0.5mL Medardo Robles MD Work Phone: [facility] 04-29-2021 zoster vaccine recombinant [facility] Room [facility] Work Phone: 04-19-2021 COVID-19, Moderna, Primary or Immunocompromised, PF, 100mcg/0.5mL Medardo Robles MD Work Phone: [facility] 04-18-2021 COVID-19, MODERNA BL UE border, Primary or Immunocompromised, (age 12y+), IM, 100 mcg/0.5mL [facility] Room [facility] Work Phone: 02-07-2021 zoster vaccine recombinant Medardo Robles MD Work Phone: [facility] Work Phone: 08-23-2020 COVID-19, Moderna, P F, 100mcg/0.5mL Medardo Robles MD Work Phone: [facility] Work Phone: 07-26-2020 COVID-19, Moderna, P F, 100mcg/0.5mL Medardo Robles MD Work Phone: [facility] Work Phone: 05-21-2020 SARS-CoV-2 (COVID-19 ) mRNA BNT-162b2 vax Rachel FLORES [facility] 02-18-2020 pneumococcal polysaccharide vaccine, 23 valent [facility] NEGATED: Highlighted row has not occurred!05-19-2019 influenza virus vaccine, live, attenuated, for intranasal use Rachel FLORES [facility] Payers Date Payer Category Payer Miscellaneous or Other A[employer] COMM ERCIAL [id number] 2022 Unknown AARP AARP COMMER CIAL [id number] 2022-Present [phone] [id number] [place] [phone] .[id number] 2014 Medicare xxxxxxxxxxx [id number] .[id number] 2013 Medicare [id number] 1.13.385.2 .[id number] 1959 Medicare [id number] .[id number] 1959 Private Health Insurance [id number] [id number] .7.3.464052.315 1948 Unknown [id number] 2.16.840.1.235366.3.579.2 .593 1948 Unknown [id number] 2.16.840.1.169965.3.579.2 .593 1948 Unknown [id number] 2.16.840.1.217140.3.579.2 .903 1948 Unknown [id number] 2.16.840.1.112046.3.579.2 .903 1948 Unknown [id number] 2.16.840.1.342567.3.579.2 .903 1948 Unknown [id number] 2.16.840.1.387868.3.579.2 .90 1948 Unknown [id number] 2.16.840.1.290853.3.579.2 .903 1948 Unknown [id number] 2.16840.1.146946.3.579.2 .903 1948 Unknown [id number] 2.16.840.1.805995.3.579.2 .727 1948 Unknown [id number] 2.16.840.1.166935.3.579.2 .727 1948 Unknown [id number] 2.16.840.1.608683.3.579.2 .727 1948 Unknown [id number] 2.16.840.1.382789.3.579.2 .174 1948 Unknown [id number] 2.16.840.1.839806.3.579.2 .174 1948 Unknown [id number] 2.16.840.1.356078.3.579.2 .174 1948 Unknown [id number] 2.16.840.1.425798.3.579.2 .174 1948 Unknown [id number] 2.16.840.1.416264.3.579.2 .174 1948 Unknown [id number] 2.16.840.1.807170.3.579.2 .174 1948 Unknown [id number] 2.16.840.1.406019.3.579.2 .174 1948 Unknown [id number] 2.16.840.1.940943.3.579.2 .174 1948 Unknown [id number] 2.16.840.1.368747.3.579.2 .174 1948 Unknown [id number] 2.16.840.1.147545.3.579.2 .174 1948 Unknown [id number] 2.16.840.1.093312.3.579.2 .903 1948 Unknown [id number] 2.16.840.1.463791.3.579.2 .903 1948 Unknown [id number] 2.16.840.1.308451.3.579.2 .727 1948 Unknown [id number] 2.16.840.1.555887.3.579.2 .727 1948 Unknown [id number] 2.16.840.1.666917.3.579.2 .727 Social History Date Type Detail Facility Start: 03-18-2019 End: 08-22-2022 Tobacco smoking status NHIS Never smoker [place] Start: 03-18-2019 End: 05-01-2024 Alcohol intake Current non-drinker of alcohol (finding) [place], [place] Start: 1950 Sex Assigned At Not on file [place] Start: 03-08-2020 End: 08-22-2022 Tobacco use and exposure Never used [place] Start: 10-20-2020 End: 10-25-2022 History SDOH Financial 4 Ellie Phone: Start: 10-20-2020 End: 10-25-2022 History SDOH Food Worry 1 Ellie Phone: Start: 10-24-2021 History SDOH Financial 5 [employer] Work Phone: Tobacco smoking status NHIS Tobacco smoking consumption unknown [facility] Start: 08-22-2022 End: 07-29-2024 Gender identity Not on file [facility] Start: 08-22-2022 End: 07-29-2024 Alcohol intake Lifetime non-drinker (finding) [facility] Start: 08-22-2022 Gender identity Identifies as female gender (finding) [facility] Start: 08-22-2022 Sexual orientation Heterosexual (fin ding) [facility] Start: 08-12-2022 End: 09-05-2022 Exposure to SARS-CoV-2 (event) Not sure [facility] Start: 08-22-2022 End: 07-29-2024 History of Social function [employer] Start: 04-26-2022 History SDOH Alcohol Std Drinks 0 [employer] Start: 10-25-2022 History SDOH Transport Non-Med 2 [employer] Tobacco smoking status Never [facility] How often to you hav e a drink containing alcohol? Never [employer] (I/We) worried whether (my/our) food would run out before (I/we) got money to buy more. Never true [employer] NEGATED: Highlighted rowStart: NINF History of tobacco use Passive smoker [employer] Medical Equipment Procedure Code Equipment Code Equipment Origin al Text Equipment Identifier Dates Device 27mm Watchman Flex - [id number] Start: 09-14-2022 Comment on above: Description: MARION Closure Perclose Prostyle - [id number] FDA Start: 09-14-2022 Comment on above: Description: Femoral System Watchman Flex Procedure Charge - [id number] Start: 09-14-2022 Functional Status Date Assessment Result Facility 06-23-2024 Functional Status N/A [facility] 11-16-2023 Functional Status N/A [facility] 11-17-2022 Functional Status N/A [facility] Clinical Notes 08-16-2022 to 07-29-2024 Ximena Archuleta CNP - 07/29/2024 10:30 AM EDTKentoRuby araujo, DEVENDRA - 07/29/2024 10:20 AM EDTPatient InstructionsXimena Archuleta CNP - 09/07/2023 8:52 AM EDTPatient Instructions Note Date & Type Note Facility 07-29-2024 History of Present illness Narrative Structural Heart Clinic Visit [facility] 07/29/2024 Ximena Archuleta CNP [address], 3rd Floor Medical Office Building [facility] [address] Patient: Sapna Breen Date of : 1950 (73 y.o.) Referring Provider: No ref. 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 Has been compliant with monotherapy with aspirin. Coronary CT MARION imaging 03/15/2023 showed a well-seated and complete occlusion of the left atrial appendage. No thrombus noticed on device no leak. 12-lead EKG Sinus rhythm low voltage precordial leads ventricular rate 62 beats per minute QTc [address] Blackwood for review. Follows with Dr. Austin for her primary cardiology needs. Overall patient states she is doing well no active complaints of chest pain, shortness of breath, orthopnea, PND, lightheadedness or dizziness, palpitations, dependent edema, near-syncope/syncope. Plan: 1. Continue indefinitely with aspirin EC 81 mg daily in addition to her other cardiac medication. CBC and BMP today. 2. Follow-up with [facility] as needed 3. Continue to follow with Dr. Austin for her primary cardiology needs. It has been a pleasure caring for this patient. Please don't hesitate to reach out to my office directly with any questions or concerns. Follow-up: Return if symptoms worsen or fail to improve. Ximena Archuleta, MSN, LUMBER MOVER, IMMIGRATION LAW SPECIALIST [facility] P:[phone] F:[phone] History of Present Illness: Sapna Breen is a 73 y.o. woman with a past medical history [...] No increased bleeding from the access site. slusher operator was Dr. Angulo with co-brazing machine operator automatic Dr. Mariscal DELMAR physician, Dr. Antonio. She is here for a 2-year post LAAO Watchman follow-up. Primary baby formula worker is Dr. Austin. Objective Review of Systems: All systems were reviewed and noted to be negative unless otherwise stated in HPI. Past Medical History: Diagnosis Date A-fib (HCC) Hyperlipidemia Hypertension Kidney stone Past Surgical History: Procedure Laterality Date BREAST SURGERY SECTION EP - INTERVENTION N/A 09/14/2022 Procedure: Left Atrial Appendage Closure; Surgeon: Pollo Angulo MD; Location: [facility]; Service: Cardiovascular History reviewed. No pertinent family [...] Disp: , Rfl: Physical Exam: BP (!) 145/86 (BP Location: Left arm, Patient Position: Sitting, BP Cuff Size: Adult) Pulse (!) 57 Ht 5' 4 Wt 83 kg (183 lb) SpO2 96% BMI 31.41 kg/m Constitutional: Well appearing female, no acute [...] Labs: Lab Results Component Value Date GLUCOSE 121 (H) 09/07/2023 CALCIUM 10.1 09/07/2023 NA 142 09/07/2023 K 4.0 09/07/2023 CL 109 (H) 09/07/2023 BUN 19 09/07/2023 CREATININE 0.82 09/07/2023 Lab Results Component Value Date ALT 58 09/11/2022 AST 28 09/11/2022 ALKPHOS 62 09/11/2022 BILITOT 0.5 09/11/2022 Lab Results Component Value Date WBC 4.80 09/07/2023 HGB 12.8 09/07/2023 HCT 38.9 09/07/2023 MCV 97.0 09/07/2023 PLT 222 09/07/2023 RBC 4.01 09/07/2023 No results found for: CHOL , LDLCALC , LDLDIRECT , TRIG , HDL No results found for: HGBA1C Lab Results Component Value Date ALT 58 09/11/2022 AST 28 09/11/2022 ALKPHOS 62 09/11/2022 BILITOT 0.5 09/11/2022 The 10-year ASCVD risk score (Slim FUNEZ, et al., 2019) is: 19.8% Values used to calculate the score: Age: 73 years Sex: Female Is Non- : No Diabetic: No Tobacco smoker: No Systolic Blood Pressure: 145 mmHg Is BP treated: No HDL Cholesterol: 48 mg/dL Total Cholesterol: 181 mg/dL MODIFIED NUNU Score Description 0 No symptoms [...] dependent 5 = independent (or in shower) 5_ GROOMING 0 = needs to help with personal care 5 = independent face/hair/teeth/shaving (implements provided) ___5___ DRESSING 0 = dependent 5 = needs help but can do about half unaided 10 = independent (including buttons, zips, laces, etc.) __10____ BOWELS 0 = incontinent (or needs to be given enemas) 5 = occasional accident 10 = continent ____10__ BLADDER 0 = incontinent, or catheterized and unable to manage alone 5 = occasional accident 10 = continent ___10___ TOILET USE 0 = dependent 5 = needs some help, but can do something alone 10 = independent (on and off, dressing, wiping) __10____ TRANSFERS (BED TO CHAIR AND BACK) 0 = unable, no sitting balance 5 = major help (one or two people, physical), can sit 10 = minor help (verbal or physical) 15 = independent 15_ MOBILITY (ON LEVEL SURFACES) 0 = immobile [...] (verbal, physical, carrying aid) 10 = independent ____10__ TOTAL (0-100): ____100__ documented in this encounter [facility] 07-29-2024 Note Structural Heart Cli mona Visit [facility] 07/29/2024 Ximena Archuleta, IMMIGRATION LAW SPECIALIST [address] [facility], 3rd Floor Medical Office [facility] [address] Patient: Sapna Breen Date of : 1950 (73 y.o.) Referring Provider: No ref. 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 Has been compliant with monotherapy with aspirin. Coronary CT [facility] imaging 03/15/2023 showed a well-seated and complete occlusion of the left atrial appendage. No thrombus noticed on device no leak. 12-lead EKG Sinus rhythm low voltage precordial leads ventricular rate 62 beats per minute QTc [address] Blackwood for review. Follows with Dr. Austin for her primary cardiology needs. Overall patient states she is doing well no active complaints of chest pain, shortness of breath, orthopnea, PND, lightheadedness or dizziness, palpitations, dependent edema, near-syncope/syncope. Plan: 1. Continue indefinitely with aspirin EC 81 mg daily in addition to her other cardiac medication. CBC and BMP today. 2. Follow-up with [facility] as needed 3. Continue to follow with Dr. Austin for her primary cardiology needs. It has been a pleasure caring for this patient. Please don't hesitate to reach out to my office directly with any questions or concerns. Follow-up: Return if symptoms worsen or fail to improve. Ximena Archuleta, MSN, LUMBER MOVER, IMMIGRATION LAW SPECIALIST [facility] P:[phone] F:[phone] ----- History of Present Illness: Sapna Breen is a 73 y.o. woman with a past medical history [...] No increased bleeding from the access site. slusher operator was Dr. Angulo with co-brazing machine operator automatic Dr. Mariscal DELMAR physician, Dr. Antonio. She is here for a 2-year post LAAO Watchman follow-up. Primary baby formula worker is Dr. Austin. Objective Review of Systems: All systems were reviewed and noted to be negative unless otherwise stated in HPI. Past Medical History: Diagnosis Date A-fib (HCC) Hyperlipidemia Hypertension Kidney stone Past Surgical History: Procedure Laterality Date BREAST SURGERY SECTION EP - INTERVENTION N/A 09/14/2022 Procedure: Left Atrial Appendage Closure; Surgeon: Pollo Angulo MD; Location: [facility]; Service: Cardiovascular History reviewed. No pertinent family [...] Disp: , Rfl: Physical Exam: BP (!) 145/86 (BP Location: Left arm, Patient Position: Sitting, BP Cuff Size: Adult) Pulse (!) 57 Ht 5' (more content not included)... [facility] 07-29-2024 Instructions Familia Roman RN - 07/29/2024 10:02 AM EDT How to contact your team Provider Pollo Angulo MD Nurse Familia Roman RN [phone] In case of an emergency please call 911 Refills When in need of a refill, please call your care team, or the office at [phone] Please include medication name, pharmacy name, and specify 30 or 90 day supply. Please check with your pharmacy within 24 hours of request for your refill. You must follow up as directed to continue current refills. Thank you documented in this encounter [facility] 06-23-2024 Hospital Discharge instructions Patient Education 06/23/2024 10:38:02 Kidney Stones, Mwsz-ko-Xwfh Kidney Stones Kidney stones are rock-like masses [...] pee. The stone usually leaves your body through your pee. A doctor may need to take out the stone. What are the causes? Kidney stones may be caused by: Too much calcium in the body. This may be caused by too much parathyroid hormone in the blood. Uric acid crystals in the bladder. The body makes uric acid when you eat certain foods. Narrowing of one or both of the ureters. A kidney blockage that you were born with. Past surgery on the kidney or the ureters. What increases the risk? You are more likely to develop this condition if: You have had a kidney stone in the past. Other people in your family have had kidney stones. You do not drink enough water. You eat a diet that is high in protein, salt (sodium), or sugar. You are very overweight (obese). What are the signs or symptoms? Symptoms of a kidney stone may include: Pain in the side of the belly, right below the ribs. Pain usually spreads to the groin. Needing to pee often or right away. Pain when peeing. Blood in your pee. Feeling like you may vomit (nauseous). Vomiting. Fever and chills. How is this treated? Treatment depends on the size, location, and makeup of the kidney stones. The stones will often pass out of the body when you pee. You may need to: Drink more fluid to help pass the stone. ?In some cases, you may be given fluids through an IV tube at the hospital. Take medicine for pain. Change your diet to help keep kidney stones from coming back. Sometimes, you may need: A procedure to break up kidney stones using a beam of light (laser) or shock waves. Surgery to remove the kidney stones. Follow these instructions at home: Medicines Take bjla-jfe-lyemqms and prescription medicines only as told by your doctor. Ask your doctor if the medicine prescribed to you requires you to avoid driving or using machinery. Eating and drinking Drink enough fluid to keep your pee pale yellow. ?You may be told to drink at least 8 10 glasses of water each day. This will help you pass the stone. If told by your doctor, change your diet. You may be told to: ?Limit how much salt you eat. ?Eat more fruits and vegetables. ?Limit how much meat, poultry, fish, and eggs you eat. Follow instructions from your doctor about what you may eat and drink. General instructions Collect pee samples as told by your doctor. You may need to collect a pee sample: ?24 hours after a stone comes out. ?8 12 weeks after a stone comes out, and every 6 12 months after that. Strain your pee every time you pee. Use the strainer that your doctor recommends. Do not throw out the stone. Keep it so that it can be tested by your doctor. Keep all follow-up visits. You may need X-rays and ultrasounds to make sure the stone has come out. How is this prevented? To prevent another kidney stone: Drink enough fluid to keep your pee pale yellow. This is the best way to prevent kidney stones. Eat healthy foods. Avoid certain foods as told by your doctor. You may be told to eat less protein. Stay at a healthy weight. Where to find more information National Kidney Foundation (NKF): kidney.org Urology Care Foundation (UCF): urologyhealth.org Contact a doctor if: You have pain that gets worse or does not get better with medicine. Get help right away if: You have a fever or chills. You get very bad pain. You get new pain in your belly. You faint. You cannot pee. This information is not intended to replace advice given to you by your health care provider. Make sure you discuss any questions you have with your health care provider. Document Revised: 12/29/2022 Document Reviewed: 12/29/2022 [employer] Patient Education 2023 Netpulse. Follow Up Care 02/21/2024 14:26:57 With:DOREEN STEVE, FEMI Gottlieb, URL Address: [address] [facility] [place] [address] When:Within 6 Month(s) [facility] 06-23-2024 Note Patient Education Urology Kidney Stones Kidney stones are rock-like masses that form inside of the kidneys. Kidneys are organs that make pee (urine). A kidney stone may move into other parts of the urinary tract, including: ??? The tubes that connect the kidneys to the bladder (ureters). ??? The bladder. ??? The tube that carries urine out of the body (urethra). Kidney stones can cause very bad pain and can block the flow of pee. The stone usually leaves your body through your pee. A doctor may need to take out the stone. What are the causes? Kidney stones may be caused by: ??? Too much calcium in the body. This may be caused by too much parathyroid hormone in the blood. ??? Uric acid crystals in the bladder. The body makes uric acid when you eat certain foods. ??? Narrowing of one or both of the ureters. ??? A kidney blockage that you were born with. ??? Past surgery on the kidney or the ureters. What increases the risk? You are more likely to develop this condition if: ??? You have had a kidney stone in the past. ??? Other people in your family have had kidney stones. ??? You do not drink enough water. ??? You eat a diet that is high in protein, salt (sodium), or sugar. ??? You are very overweight (obese). What are the signs or symptoms? Symptoms of a kidney stone may include: ??? Pain in the side of the belly, right below the ribs. Pain usually spreads to the groin. ??? Needing to pee often or right away. ??? Pain when peeing. ??? Blood in your pee. ??? Feeling like you may vomit (nauseous). ??? Vomiting. ??? Fever and chills. How is this treated? Treatment depends on the size, location, and makeup of the kidney stones. The stones will often pass out of the body when you pee. You may need to: ??? Drink more fluid to help pass the stone. ? In some cases, you may be given fluids through an IV tube at the hospital. ??? Take medicine for pain. ??? Change your diet to help keep kidney stones from coming back. Sometimes, you may need: ??? A procedure to break up kidney stones using a beam of light (laser) or shock waves. ??? Surgery to remove the kidney stones. Follow these instructions at home: Medicines ??? Take twup-tbd-jpvyyfs and prescription medicines only as told by your doctor. ??? Ask your doctor if the medicine prescribed to you requires you to avoid driving or using machinery. Eating and drinking ??? Drink enough fluid to keep your pee pale yellow. ? You may be told to drink at least 8?10 glasses of water each day. This will help you pass the stone. ??? If told by your doctor, change your diet. You may be told to: ? Limit how much salt you eat. ? Eat more fruits and vegetables. ? Limit how much meat, poultry, fish, and eggs you eat. ??? Follow instructions from your doctor about what you may eat and drink. General instructions ??? Collect pee samples as told by your doctor. You may need to collect a pee sample: ? 24 hours after a stone comes out. ? 8?12 weeks after a stone comes out, and every 6?12 months after that. ??? Strain your pee every time you pee. Use the strainer that your doctor recommends. ??? Do not throw out the stone. Keep it so that it can be tested by your doctor. ??? Keep all follow-up visits. You may need X-rays and ultrasounds to make sure the stone has come out. How is this prevented? To prevent another kidney stone: ??? Drink enough fluid to keep your pee pale yellow. This is the best way to prevent kidney stones. ??? Eat healthy foods. ??? Avoid certain foods as told by your doctor. You may be told to eat less protein. ??? Stay at a healthy weight. Where to find more information ??? National Kidney Foundation (NKF): kidney.org ??? Urology Care Foundation (UCF): urologyhealth.org Contact a doctor if: ??? You have pain that gets worse or does not get better with medicine. Get help right away if: ??? You have a fever or chills. ??? You get very bad pain. ??? You get new pain in your belly. ??? You faint. ??? You cannot pee. This information is not intended to replace advice given to you by your health care provider. Make sure you discuss any questions you have with your health care provider. Document Revised: 12/29/2022 Document Reviewed: 12/29/2022 [employer] Patient Education ? 2023 Netpulse. [facility] 12-24-2023 Evaluation + Plan note Diagnostic Tests PendingUrine Culture 12/24/23 [facility] 11-16-2023 Hospital Discharge instructions Patient Education [...] include: ?8 oz (237 mL) of milk, rfvnvrh-bxtifaeezhme-iznhc milk, and calcium-fortifiedfruit juice. Calcium-fortified means that [...] ?Spinach (cooked), rhubarb, beets, sweet potatoes, and Moldovan chard. ?Peanuts. ?Potato chips, cuban fries, and baked potatoes with skin on. ?Nuts and nut products. ?Chocolate. If you regularly take a diuretic medicine, make sure to eat at least 1 or 2 servings of fruits or vegetables that are high in potassium each day. These include: ?Avocado. ?Banana. ?Perry, prune, carrot, or tomato juice. ?Baked potato. [...] magnesium, fish oil, or vitamin B6. Take wzce-jmn-wxnfitf and prescription medicines only as told by [...] Casseroles. Pizza. Lasagna. Frozen meals. Potato chips. Wallisian fries. The items listed above may not [...] provider. Document Revised: 08/17/2022 Document Reviewed: 08/17/2022 Elsevier Patient Education 2022 [employer] Follow Up Care 11/17/2022 10:51:02 With:SANDRA SAMSON, Rachel Peña, URL Address: [address] [place] [id number]- When: Unknown [facility] 11-16-2023 Note Patient Education Nephrology Dietary [...] ? 8 oz (237 mL) of milk, zjeauso-fxsaqvxnsiuj-cfkcd milk, and calcium-fortifiedfruit juice. Calcium-fortified means that [...] Spinach (cooked), rhubarb, beets, sweet potatoes, and Moldovan chard. ? Peanuts. ? Potato chips, cuban fries, and baked potatoes with skin on. ? Nuts and nut products. ? Chocolate. ? If you regularly take a diuretic medicine, make sure to eat at least 1 or 2 servings of fruits or vegetables that are high in potassium each day. These include: ? Avocado. ? Banana. ? Perry, prune, carrot, or tomato juice. ? Baked [...] fish oil, or vitamin B6. ? Take wuop-szq-tccyzxt and prescription medicines only as told by your health care provider. These include suppleme (more content not included)... [facility] 09-07-2023 History of Present illness Narrative Structural Heart Clinic Visit [facility] 09/07/2023 Ximena Archuleta, IMMIGRATION LAW SPECIALIST [address] [facility] Medical Office [facility] [address] Patient: Sapna Breen Date of : 1950 (72 y.o.) Referring Provider: No ref. provider found PCP: Medardo Robles MD Chief Complaint: Follow-up (1 year LAAO -no complaints ) Date of Service: 09/07/2023 Assessment and Plan: Atrial fibrillation/status post LAAO Watchman FLX Status post LAAO with Watchman FLX 09/14/2022 with a left atrial appendage occluder 27 mm device deburring and tooling machine operator Dr. Angulo. Has been compliant [...] 1 year (around 09/06/2024). Ximena Archuleta, MSN, LUMBER MOVER, IMMIGRATION LAW SPECIALIST [facility] P:[phone] F:[phone] History of Present Illness: Sapna Breen is [...] No increased bleeding from the access site. slusher operator was Dr. Angulo with co-brazing machine operator automatic Dr. Mariscal DELMAR physician, Dr. Antonio. She is here for a 1-year post LAAO Watchman follow-up. Primary baby formula worker is Dr. Austin. Objective Review of Systems: All systems were reviewed and noted to be negative unless otherwise stated in HPI. Past Medical History: Diagnosis Date A-fib (HCC) Hyperlipidemia Hypertension Kidney stone Past Surgical History: Procedure Laterality Date BREAST SURGERY SECTION EP - INTERVENTION N/A 09/14/2022 Procedure: Left Atrial Appendage Closure; Surgeon: Pollo Angulo MD; Location: [facility]; Service: Cardiovascular History reviewed. No pertinent family [...] TOTAL (0-100): __100___ documented in this encounter [facility] 08-27-2023 Instructions Familia Roman RN - 08/27/2023 10:15 AM EDT How to contact your team Provider Pollo Angulo MD Nurse Familia Roman RN [phone] In case of an emergency please call 911 Refills When in need of a refill, please call your care team, or the office at [phone] Please include medication name, pharmacy name, and specify 30 or 90 day supply. Please check with your pharmacy within 24 hours of request for your refill. You must follow up as directed to continue current refills. Thank you documented in this encounter [facility] 03-20-2023 History of Present illness Narrative Structural Heart Clinic Visit [facility] 03/20/2023 Ximena Archuleta, IMMIGRATION LAW SPECIALIST [address] [facility] Medical Office [facility] [address] Patient: Sapna Breen Date of : 1950 (72 y.o.) Referring Provider: No ref. provider found PCP: Medardo Robles MD Chief Complaint: Follow-up (6 mo LAAO f/u pt has no complaints today) Date of Service: 03/20/2023 Assessment and Plan: Atrial fibrillation/status post LAAO Watchman FLX Status post LAAO with Watchman FLX 09/14/2022 with a left atrial appendage occluder 27 mm device deburring and tooling machine operator Dr. Angulo. Has been compliant [...] 6 months (around 09/18/2023). Ximena Archuleta, MSN, LUMBER MOVER, IMMIGRATION LAW SPECIALIST [facility] P:[phone] F:[phone] History of Present Illness: Sapna Breen is [...] No increased bleeding from the access site. slusher operator was Dr. Angulo with co-brazing machine operator automatic Dr. Mariscal DELMAR physician, Dr. Antonio. She is here for a 6-month post LAAO Watchman follow-up. Primary baby formula worker is Dr. Austin. Objective Review of Systems: All systems were reviewed and noted to be negative unless otherwise stated in HPI. Past Medical History: Diagnosis Date A-fib (HCC) Hyperlipidemia Hypertension Kidney stone Past Surgical History: Procedure Laterality Date BREAST SURGERY SECTION EP - INTERVENTION N/A 09/14/2022 Procedure: Left Atrial Appendage Closure; Surgeon: Pollo Angulo MD; Location: [facility]; Service: Cardiovascular History reviewed. No pertinent family [...] BILITOT 0.5 09/11/2022 The ASCVD Risk score (Humboldt DK, et al., 2019) failed to calculate for the following reasons: Cannot find a previous total cholesterol lab arrived to the Structural Heart ambulatory clinic today accompanied by . Review of allergies, medications, Yung Index, and Modified Oscoda Scale has been completed. ____ will be meeting with . The patient has been provided with an educational folder including a [employer] booklet regarding understanding Afib, left atrial appendage, [...] TOTAL (0-100): ___100___ documented in this encounter [facility] 03-20-2023 Instructions Jack Escobar RN - 03/20/2023 9:21 AM EDT ..How to contact your Care Team: Provider: Pollo Angulo MD Nurse: Jack Escobar RN In case of an emergency please call 911. REFILLS: When in need for refills please call your care team or the office at [phone]. Please include medication name, pharmacy name, and specify 30-day or 90-day supply. Please check with your pharmacy within 24 hours of request for your refill. You must follow up as directed to continue current refills. Thank you documented in this encounter [facility] 03-02-2023 History of Present illness Narrative Returned call to pt regarding VM received requesting call back. Sapna states she has a CT scan scheduled 03/15 and wanted to make sure lab orders were in for pre-scan blood work needed. Informed Sapna orders are already in for labs needed prior to the scan and she can go to any [facility] lab to have drawn prior to the . Verbalizes understanding and thankful for call. documented in this encounter [facility] 11-17-2022 Hospital Discharge instructions Patient Education 11/17/2022 10:40:30 Kidney Stones, Mtfs-da-Baox Kidney Stones Kidney stones are rock-like masses [...] Follow these instructions at home: Medicines Take bfiv-xwh-sobytdq and prescription medicines only as told by [...] provider. Document Revised: 01/09/2022 Document Reviewed: 01/09/2022 [employer] Patient Education 2022 Netpulse. Follow Up Care 08/23/2022 12:57:26 With:SANDRA SAMSON, Rachel Peña, URL Address: [address] [place], [place] [address]- When:Within 1 Year(s) Comments:[employer] [facility] 11-06-2022 History of Present illness Narrative Structural Cardiology Returning Patient Clinic Visit [facility] 11/06/2022 Ximena Archuleta, IMMIGRATION LAW SPECIALIST [address] [facility] Medical Office [facility] [address] [facility]ician Group, physician's office 11/06/2022 Patient: Sapna Breen Date of : 1950 (71 y.o.) Referring Provider: No ref. provider found PCP: Medardo Robles MD Chief Complaint: Follow-up (Patient has no new cardiac concerns today ) Date of Service: 11/06/2022 Assessment and Plan: Atrial fibrillation Status post LAAO with watchman 09/14/2022 with a left atrial appendage occluder 27 mm device deburring and tooling machine operator Dr. Adele Hernandez She has [...] any issue. She does follow with primary baby formula worker, Dr. Austin. Plan: 1. She will continue [...] No follow-ups on file. Ximena Archuleta, MSN, LUMBER MOVER, IMMIGRATION LAW SPECIALIST [facility] P:[phone] F:[phone] History of Present Illness: Sapna Breen is [...] No increased bleeding from the access site. slusher operator was Dr. Angulo with co-brazing machine operator automatic Dr. Mariscal DELMAR physician, Dr. Antonio Post [...] Appendage Closure; Surgeon: Pollo Angulo MD; Location: [facility]; Service: Cardiovascular History reviewed. No pertinent family [...] TOTAL (0-100): __100____ documented in this encounter [facility] 10-26-2022 Instructions Jack Escobar RN - 10/26/2022 1:36 PM EDT ..How to contact your Care Team: Provider: Pollo Angulo MD Nurse: Jack Escobar RN In case of an emergency please call 911. REFILLS: When in need for refills please call your care team or the office at [phone]. Please include medication name, pharmacy name, and specify 30-day or 90-day supply. Please check with your pharmacy within 24 hours of request for your refill. You must follow up as directed to continue current refills. Thank you Post LAAO CT You are scheduled for a post LAAO CT scan, on ____03/15 at [facility]. Please arrive at the Short Term Care Unit at 845a . Your physician requires blood work prior to your scan, we will place an order for the blood work that may be performed at the [facility] lab of your choice within 1-2 [...] are properly hydrated. documented in this encounter [facility] 09-15-2022 Hospital course Narrative DISCHARGE SUMMARY Patient: Sapna Breen Account: [id number] Admitted: 09/14/2022 Discharge Date/Time: 09/15/2022 Clinical Summary [...] No increased bleeding from the access site. slusher operator was Dr. Angulo with co-brazing machine operator automatic Dr. Mariscal DELMAR physician, Dr. Antonio Post [...] Your Medications These medications were sent to [id number] - [place], [place] - [address] [facility], [facility] [address] clopidogreL 75 mg tablet Physician(s) Family: Medardo Robles MD, , Address: [facility] [address] / [facility] [address] Follow Up: Kathya Archuleta CNP 11/06/22 10:30 a.m. Patient instructions, including activity, were given to the patient/family at discharge. Please see the After Visit Summary in the medical record for details. Time spent on discharge: < 30 minutes Completed by: Mandie Zayas on 09/15/22, 9:35 AM documented in this encounter [facility] 09-14-2022 Note Formatting of this n ote might be different from the original. Problem: Actual or potential alteration in health Goal: Absence of healthcare acquired conditions Outcome: Partially Met Goal: Knowledge of Interdisciplinary Plan of Care Outcome: Partially Met Goal: Knowledge of Enviroment Outcome: Partially Met [facility] 09-14-2022 Miscellaneous Notes Problem: Actual or [...] Outcome: Partially Met documented in this encounter [facility] 09-14-2022 Note Formatting of this n ote might be different from the original. Problem: Actual or potential alteration in health Goal: Absence of healthcare acquired conditions Outcome: Partially Met Goal: Knowledge of Interdisciplinary Plan of Care Outcome: Partially Met Goal: Knowledge of Enviroment Outcome: Partially Met [facility] 09-14-2022 Note CARDIAC CATHETERIZAT ION Date of Procedure: 09/14/22 Profiler Hand and Supervising Physician: Pollo Angulo MD Sales Superintendent: Austin Mariscal MD Name of Procedures: Percutaneous transcatheter closure of the left atrial appendage with Watchman FLX left atrial appendage occluder 27 mm device (CPT Code 11242, ICD 10 procedure code 25G69PO) for the treatment of a patient with unspecified (I40.9) atrial fibrillation. (DRG code 273 or 274) Medications: General anesthesia provided by Dr. Paolo Cannon MD Indication for Procedure: A 71 y.o. female with history of atrial fibrillation. 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 Faustino Yi MD to discuss non-interventional, pharmacologic options to stroke prevention. No qualified Resident was available to assist in the case therefore due to the complexity,Austin Mariscal MD was utilized as my camp assistant Description of Procedure: Following informed consent, [...] exchanged out the Proglide sheath for a Bullhead sheath with a transseptal needle. Under fluoroscopic and echocardiographic images, the Danielito versacross transseptal needle was used to perform transseptal puncture across the inter-atrial septum. The Bullhead sheath was advanced into the left atrium and the dilator to dilate the septum and then removed from the body. Heparin was then administered for full anticoagulation with intermittent monitoring of ACT. The Bullhead sheath was exchanged out for a 14-Wallisian Atrite Watchman sheath, which was placed in the left atrium. A 6-Wallisian pigtail catheter was advanced into the sheath and the stiff wire was then removed. Under fluoroscopic and echocardiographic guidance, the pigtail catheter was then placed selectively in the left atrial appendage and multiple angiographic images were obtained. We then advanced the 14-Wallisian Atrite sheath into the left atrial appendage [...] of leak, the device was released. The 14-Wallisian sheath was removed and hemostasis was achieved [...] left atrial appendage occluder 27 mm; LOT# [id number] Summary: The following findings were noted on [...] and interpretation verified by Pollo Angulo MD [facility] 09-14-2022 Note CARDIAC CATHETERIZAT ION Date of Procedure: 09/14/22 Profiler Hand and Supervising Physician: Pollo Angulo MD Sales Superintendent: Austin Mariscal MD Name of Procedures: Percutaneous transcatheter closure of the left atrial appendage with Watchman FLX left atrial appendage occluder 27 mm device (CPT Code 51353, ICD 10 procedure code 13K07MU) for the treatment of a patient with unspecified (I40.9) atrial fibrillation. (DRG code 273 or 274) Medications: General anesthesia provided by Dr. Paolo Cannon MD Indication for Procedure: A 71 y.o. female with history of atrial fibrillation. The patient has a CHADS score of 3 and cannot take usp anticoagulation due to hematuria Prior to implantation of the device the patient met with Dr. Faustino Yi MD to discuss non-interventional, pharmacologic options to stroke prevention. No qualified Resident was available to assist in the case therefore due to the complexity,Austin Mariscal MD was utilized as my camp assistant Description of Procedure: Following informed consent, [...] exchanged out the Proglide sheath for a Bullhead sheath with a transseptal needle. Under fluoroscopic and echocardiographic images, the Danielito versacross transseptal needle was used to perform transseptal puncture across the inter-atrial septum. The Bullhead sheath was advanced into the left atrium and the dilator to dilate the septum and then removed from the body. Heparin was then administered for full anticoagulation with intermittent monitoring of ACT. The Bullhead sheath was exchanged out for a 14-Wallisian Atrite Watchman sheath, which was placed in the left atrium. A 6-Wallisian pigtail catheter was advanced into the sheath and the stiff wire was then removed. Under fluoroscopic and echocardiographic guidance, the pigtail catheter was then placed selectively in the left atrial appendage and multiple angiographic images were obtained. We then advanced the 14-Wallisian Atrite sheath into the left atrial appendage [...] of leak, the device was released. The 14-Wallisian sheath was removed and hemostasis was achieved [...] left atrial appendage occluder 27 mm; LOT# [id number] Summary: The following findings were noted on [...] and interpretation verified by Pollo Angulo MD [facility] 09-14-2022 History of Present illness Narrative [...] TOTAL (0-100): __100____ documented in this encounter [facility] 09-14-2022 Attending History and physical note INTERVAL HISTORY AND PHYSICAL Patient Name: Sapna Breen Admit Date: [id number] MR #: [id number] : 1950 The H&P has been reviewed [...] acute renal insufficiency, need for emergency surgery, MS, stroke, or cardiac arrest/. Patient voiced understanding and agreed to proceed. Pollo Angulo MD 09/14/2022 10:09 AM Source Note - Pollo Angulo MD - 08/22/2022 8:14 AM EDT Structural [facility] Disease Clinic Consult Heart & Vascular [facility] 08/22/2022 Pollo Angulo MD [address] [facility] Medical Office [facility] [address] Patient: Sapna Breen Date of : [...] rate is well controlled on beta-brice. Her [id number] score is 3 giving an annual stroke [...] limited to risk of bleeding infection stroke MS or need for emergent open heart surgery. [...] no past medical history of any CAD MS stroke diabetes or known peripheral arterial disease Non-smoker lifelong Family history of CAD in her brother who had MS and mother had some heart disease that she is unsure of Objective Imaging: I independently reviewed the EKG and agree with the interpretation(s) with the following comments. NSR ECG 12 lead Final Result by Arron Vizcarra MA (08/22/2022 0750) Past Medical History: Diagnosis Date A-fib (HCC) [...] found for: CHOL, LDLCALC, LDLDIRECT, TRIG, HDL [facility] 09-14-2022 History and physical note INTERVAL HISTORY AND PHYSICAL Patient Name: Sapna Breen Admit Date: [id number] MR #: [id number] : 1950 The H&P has been reviewed [...] acute renal insufficiency, need for emergency surgery, MS, stroke, or cardiac arrest/. Patient voiced understanding and agreed to proceed. Pollo Angulo MD 09/14/2022 10:09 AM Source Note - Pollo Angulo MD - 08/22/2022 8:14 AM EDT Structural Heart Disease Clinic Consult Heart & Vascular [facility] 08/22/2022 Pollo Angulo MD [address] [facility] Medical Office [facility] [address] Patient: Sapna Breen Date of : [...] rate is well controlled on beta-brice. Her [id number] score is 3 giving an annual stroke [...] limited to risk of bleeding infection stroke MS or need for emergent open heart surgery. [...] no past medical history of any CAD MS stroke diabetes or known peripheral arterial disease Non-smoker lifelong Family history of CAD in her brother who had MS and mother had some heart disease that she is unsure of Objective Imaging: I independently reviewed the EKG and agree with the interpretation(s) with the following comments. NSR ECG 12 lead Final Result by Arron Vizcarra MA (08/22/2022 0953) Past Medical History: Diagnosis Date A-fib (HCC) [...] LDLDIRECT, TRIG, HDL documented in this encounter [facility] 09-14-2022 Hospital Discharge instructions Jack Escobar RN - 09/14/2022 8:52 AM EDT [facility] Hospital Discharge Instructions Your 45 day follow up clinic appointment with cardiology nurse practitioner Jeny Archuleta is scheduled for 11/06/22 at 1030am at the [facility], 3rd floor Heart and Vascular Clinic. Please arrive 15 minutes prior to your appointment time. Your 6 month post procedure office visit with cardiology nurse practitioner Jeny Archuleta has been scheduled for 03/20/23 at 930am at the [address] Heart and Vascular [facility]. Please arrive 15 minutes prior to your appointment time. Your [address] scan has been scheduled for 03/15/23. Please arrive at the [facility] at 845am. Post LAAO CT Instructions: Your physician requires blood work prior to your scan, we will place an order for the blood work that may be performed at the [facility] lab of your choice within 1-2 [...] call, please call in for an update. ([phone]) Around 45 days: You will have a [...] after office hours or weekends, please call [phone] and ask for the baby formula worker electronic system engineer for assistance. During the week days, you may call CHRISTI Santiago at the office at [phone]. documented in this encounter [facility] 09-08-2022 History of Present illness Narrative Pt called to review procedure with Dr. Adele PATTERSON with watchman device scheduled next week 09/14. All information listed below reviewed. Verbalizes understanding and denies any further questions. Thankful for call. Please complete required pre-procedure blood work on 09/11 or 09/12 at the [facility] main floor lab. No fasting is required for this blood work. 3-MARION Closure PRE-PROCEDURE INSTRUCTIONS Date: Check-In Time: 9am The check in time is the time that you need to be at the hospital. This time allows adequate preparation time prior to your procedure. It is not the time of the procedure. LOCATION: [facility]. Please park in the garage next to the medical office building. If needed, bilingual hr generalist parking is available at the front entrance [...] by your nurse. documented in this encounter [facility] 08-28-2022 History of Present illness Narrative Pt called to review LAAO procedure information listed below. Verbalizes understanding and denies any further questions. 1-Your echocardiogram is scheduled for 09/05 at 2pm at the [facility], 3rd floor heart and vascular clinic. 2-Pre-CT You are scheduled for a pre-CT scan, on 09/05 at [facility]. Please arrive at the [facility] [...] pre-procedure blood work on 09/05 at the [facility] Office building main floor lab. No fasting is required for this blood work. 3-MARION Closure PRE-PROCEDURE INSTRUCTIONS Date: ____09/14 Check-In Time: 9am The check in time is the time that you need to be at the hospital. This time allows adequate preparation time prior to your procedure. It is not the time of the procedure. LOCATION: [facility]. Please park in the garage next to the medical office building. If needed, bilingual hr generalist parking is available at the front entrance [...] after the procedure. documented in this encounter [facility] 08-25-2022 History of Present illness Narrative [...] thankful for call. documented in this encounter [facility] 08-22-2022 History of Present illness Narrative Structural Heart Disease Clinic Consult Heart & Vascular [facility] 08/22/2022 Pollo Angulo MD [address] [place] [address] Medical Office [facility] [address] Patient: Sapna Breen Date of : [...] rate is well controlled on beta-brice. Her [id number]-CMPt score is 3 giving an annual stroke [...] limited to risk of bleeding infection stroke MS or need for emergent open heart surgery. [...] no past medical history of any CAD MS stroke diabetes or known peripheral arterial disease Non-smoker lifelong Family history of CAD in her brother who had MS and mother had some heart disease that she is unsure of Objective Imaging: I independently reviewed the EKG and agree with the interpretation(s) with the following comments. NSR ECG 12 lead Final Result by Arron Vizcarra MA (08/22/2022 0683) Past Medical History: Diagnosis Date A-fib (HCC) [...] LDLDIRECT, TRIG, HDL documented in this encounter [facility] 08-18-2022 Instructions Jack Escobar RN - 08/18/2022 9:07 AM EDT Please complete required pre-procedure blood work on at the [facility] main floor lab. No fasting is required for this blood work. 1-Your echocardiogram is scheduled for at the [facility], 3rd floor heart and vascular clinic. 2-Pre-CT You are scheduled for a pre-CT scan, on at [facility]. Please arrive at the [facility] Term Care [...] not the time of the procedure. LOCATION: [facility]. Please park in the garage next to the medical office building. If needed, bilingual hr generalist parking is available at the front entrance [...] You may reach our nurse line at [phone] for any questions or concerns. Please leave a message and we will return your call within 24 hours, Sunday-Sunday. For billing questions, please contact your insurance and/or our central billing office at [phone]. Thank you for choosing [facility], we look forward to caring for you. documented in this encounter [facility] 08-16-2022 History of Present illness Narrative [facility] referral received from Dr. Yi for LEONARDO morelos. Pt scheduled [facility] 08/22 w/ Dr. Angulo Records requested from pt PCP and [facility] (last echo 2015), Urology notes requested and labs. documented in this encounter [facility] Evaluation + Plan note Future Appointments Appointment Date:11/16/2023 09:45:00 AM Scheduled Provider:Rachel FLORES MD Location:[facility] Appointment Type:URO Office Visit Diagnostic Tests PendingElectrolyte Panel 11/17/22 [facility] Evaluation + Plan note Future Appointments Appointment Date:12/22/2024 09:40:00 AM Scheduled Provider:FEMI LOGAN PA-C Location:[facility] Appointment Type:URO Office Visit [facility] Evaluation + Plan note Future Appointments Appointment Date:12/22/2024 09:40:00 AM Scheduled Provider:FEMI LOGAN PA-C Location:[facility] Appointment Type:URO Office Visit Diagnostic Tests PendingCalculi Analysis Urinary 06/23/24 [facility] Evaluation note Diagnosis Dysuria documented in this encounter Ellie Phone: evaluation note* Diagnosis Visit for screening mammogram Other screening mammogram documented in this encounter Ellie Phone: evaluation note* Diagnosis Pain and swelling of toe of left foot documented in this encounter Ellie Phone: evaluation note* Diagnosis Dysuria Acute cystitis with hematuria Acute cystitis documented in this encounter Ellie Phone: evaluation note* Diagnosis Visit for screening mammogram Other screening mammogram documented in this encounter [employer] Phone: evaluation note* Diagnosis Atrial fibrillation, unspecified type (HCC)- Primary Essential hypertension Unspecified essential hypertension documented in this encounter [facility] note* Diagnosis Atrial fibrillation, unspecified type (HCC)- Primary Atrial fibrillation, chronic (HCC) documented in this encounter [facility] note* Diagnosis Atrial fibrillation, unspecified type (HCC)- Primary documented in this encounter [facility] note* Diagnosis Pre-op testing- Primary Unspecified pre-operative examination Atrial fibrillation, chronic (HCC) documented in this encounter [facility] note* Diagnosis Atrial fibrillation, chronic (HCC)- Primary documented in this encounter [facility] note* Diagnosis Presence of Watchman left atrial appendage closure device- Primary PAF (paroxysmal atrial fibrillation) (HCC) Atrial fibrillation documented in this encounter [facility] note* Diagnosis Dysuria documented in this encounter [facility] [employer] [facility]* Diagnosis Atrial fibrillation, chronic (HCC)- Primary Presence of Watchman left atrial appendage closure device documented in this encounter [facility] note* Diagnosis Atrial fibrillation, chronic (HCC)- Primary [facility]* Diagnosis Atrial fibrillation, unspecified type (HCC)- Primary Presence of Watchman left atrial appendage closure device documented in this encounter [facility] note* Diagnosis Atrial fibrillation, unspecified type (HCC)- Primary documented in this encounter [facility]* Diagnosis Paroxysmal atrial fibrillation (HCC) Atrial fibrillation Mitral valve insufficiency, unspecified etiology Mixed hyperlipidemia Primary hypertension Unspecified essential hypertension Vitamin D deficiency disease Unspecified vitamin D deficiency documented in this encounter [facility]* Diagnosis Paroxysmal atrial fibrillation (HCC) Atrial fibrillation Mitral valve insufficiency, unspecified etiology Mixed hyperlipidemia Primary hypertension Unspecified essential hypertension Vitamin D deficiency disease Unspecified vitamin D deficiency documented in this encounter [facility]* Diagnosis Paroxysmal atrial fibrillation (HCC) Atrial fibrillation Mitral valve insufficiency, unspecified etiology Mixed hyperlipidemia Primary hypertension Unspecified essential hypertension Vitamin D deficiency disease Unspecified vitamin D deficiency documented in this encounter [facility]* Diagnosis Uric acid nephrolithiasis documented in this encounter [facility]* Diagnosis Presence of Watchman left atrial appendage closure device- Primary PAF (paroxysmal atrial fibrillation) (HCC) Atrial fibrillation documented in this [facility] course Narrative No data available for this section [facility] Hospital Discharge instructions No data available for this section [facility] progress note No data available for this section [facility] reason for visit Narrative* Auth/Cert Specialty Diagnoses / Procedures Referred By Sea palm Referred To Contact Diagnoses atrial fibrillation Procedures Left Atrial Appendage Closure Referral ID Status Reason Start Date Expiration Date Visits Re quested Visits Authorized [id number] 1 1 [facility] Summary Purpose Family History No Family History Records FoundNo Family History Records FoundNo Family History Records FoundNo Family History Records Found No data available for this section No data available for this section No data available for this section No Family History Records FoundNo Family History Records FoundNo Family History Records Found No data available for this section No data available for this section No Family History Records FoundNo Family History Records FoundNo Family History Records FoundNo Family History Records Found Advance Directives No Advanced Directives Records FoundDocuments on File Type Date Recorded Patient Conversion Worker Expl anation Advance Directives and Living Will Power of [employer] Consultant Latest Code Status on File Code Status Date Activated Date Inactivated Comments Full Code 06/14/2015 10:10 AM 06/14/2015 1:00 PM Full Code 06/14/2015 8:09 AM 06/14/2015 10:10 AM Full Code 12/10/2012 7:01 AM 12/10/2012 5:08 PM Documents on File Type Date Recorded Patient Conversion Worker Expl anation Advance Directives and Living Will Power of [employer] Consultant Latest Code Status on File Code Status Date Activated Date Inactivated Comments Full Code 06/14/2015 10:10 AM 06/14/2015 1:00 PM Full Code 06/14/2015 8:09 AM 06/14/2015 10:10 AM Full Code 12/10/2012 7:01 AM 12/10/2012 5:08 PM Documents on File Type Date Recorded Patient Conversion Worker Expl anation ACP-Advance Directive ACP-Power of [employer] Consultant Documents on File Type Date Recorded Patient Conversion Worker Expl anation ACP-Advance Directive ACP-Power of [employer] Consultant Healthcare Agents on File Name Relationship Healthcare Agent Relationship Communication Cledith Amburgey Spouse Primary Decision Maker [phone] (Home) Healthcare Agents on File Name Relationship Healthcare Agent Relationship Communication Cledith Amburgey Spouse Primary Decision Maker [phone] (Home) Healthcare Agents on File Name Relationship Healthcare Agent Relationship Communication Cledith Amburgey Spouse Primary Decision Maker [phone] (Home) Healthcare Agents on File Name Relationship Healthcare Agent Relationship Communication Cledith Amburgey Spouse Primary Decision Maker [phone] (Home) Latest Code Status on File Code Status [...] Comments 09/14/2022 8:47 AM 09/14/2022 2:05 PM Date Activated Date Inactivated Comments 06/14/2015 10:10 AM 06/14/2015 1:00 PM Date Activated Date Inactivated Comments 06/14/2015 8:09 AM 06/14/2015 10:10 AM Date Activated Date Inactivated Comments 12/10/2012 7:01 AM 12/10/2012 5:08 PM Healthcare Agents on File Name Relationship Healthcare Agent Relationship Communication Cledith Amburgey Spouse Primary Decision Maker Date Activated Date Inactivated Comments 06/14/2015 10:10 AM 06/14/2015 1:00 PM Date Activated Date Inactivated Comments 06/14/2015 8:09 AM 06/14/2015 10:10 AM Date Activated Date Inactivated Comments 12/10/2012 7:01 AM 12/10/2012 5:08 PM Healthcare Agents on File Name Relationship Healthcare Agent Relationship Communication Cledilety Breen Spouse Primary Decision Maker Healthcare Agents on File Name Relationship Healthcare Agent Relationship Communication Cledilety Breen Spouse Primary Decision Maker Healthcare Agents on File Name Relationship Healthcare Agent Relationship Communication Cledilety Breen Spouse Primary Decision Maker Healthcare Agents on File Name Relationship Healthcare Agent Relationship Communication Cledilety Breen Spouse Primary Decision Maker Reason for Referral Status Reason Specialty Diagnoses / Procedures Referre d By Contact Referred To Contact Open Cardiology Diagnoses Essential hypertension Mitral valve insufficiency, unspecified etiology Atrial fibrillation, unspecified type (HCC) Procedures EKG 12 Lead Kyle Austin MD [address] [place] [id number] Status Reason Specialty Diagnoses / Procedures Re ferred By Contact Referred To Contact Open Cardiology Diagnoses Elevated glucose Essential hypertension Hyperlipidemia, unspecified hyperlipidemia type Vitamin D deficiency disease Atrial fibrillation, unspecified type (HCC) Procedures EKG 12 Lead Kyle Austin MD [address] [place] [address] Status Reason Specialty Diagnoses / Procedures Referre d By Contact Referred To Contact Closed Radiology Diagnoses Visit for screening mammogram Procedures [facility] DIGITAL SCREEN BILATERAL Medardo Robles MD [address] [place] [address] Specialty Diagnoses / Procedures Referred By Sea palm Referred To Contact Radiology Diagnoses Visit for screening mammogram Procedures [facility] KRISSY DIGITAL SCREEN BILATERAL Medardo Robles MD [address] [place] [address] Referral ID Status Reason Start Date Expiration Date Visits Re quested Visits Authorized [id number] Closed 01/24/2022 01/24/2023 1 1 Specialty Diagnoses / Procedures Referred By Contac t Referred To Contact Cardiology Diagnoses Atrial fibrillation, unspecified type (HCC) Procedures ECG 12 lead Pollo Angulo MD [address] [phone] Referral ID Status Reason Start Date Expiration Date V isits Requested Visits Authorized [id number] Authorized 08/22/2022 08/22/2023 1 1 Specialty Diagnoses / Procedures Referred By Contac t Referred To Contact Radiology Diagnoses Atrial fibrillation, unspecified type (HCC) Procedures CT Pulmonary Vein With Reconstructions 3D Pollo Angulo MD [address] [phone] Referral ID Status Reason Start Date Expiration Date V isits Requested Visits Authorized [id number] Authorized 08/28/2022 08/28/2023 1 1 Specialty Diagnoses / Procedures Referred By Contac t Referred To Contact Cardiology Diagnoses Atrial fibrillation, unspecified type (HCC) Atrial fibrillation, chronic (HCC) Procedures Echocardiogram complete Pollo Angulo MD [address] [phone] Referral ID Status Reason Start Date Expiration Date V isits Requested Visits Authorized [id number] Authorized 08/28/2022 08/28/2023 1 1 Specialty Diagnoses / Procedures Referred By Contac t Referred To Contact Radiology Diagnoses Atrial fibrillation, chronic (HCC) Procedures CT Pulmonary Vein With Reconstructions 3D Pollo Angulo MD [address] [phone] Referral ID Status Reason Start Date Expiration Date V isits Requested Visits Authorized [id number] Pending Review 03/16/2023 03/15/2024 1 1 Specialty Diagnoses / Procedures Referred By Contac t Referred To Contact Cardiology Diagnoses Atrial fibrillation, chronic (HCC) Procedures ECG 12 lead Ximena Archuleta CNP [address] [phone] Referral ID Status Reason Start Date Expiration Date V isits Requested Visits Authorized [id number] Authorized 11/06/2022 11/06/2023 1 1 Specialty Diagnoses / Procedures Referred By Contac t Referred To Contact Cardiology Diagnoses Atrial fibrillation, unspecified type (HCC) Procedures ECG 12 lead Ximena Archuleta, IMMIGRATION LAW SPECIALIST [address] [place] [address] Referral ID Status Reason Start Date Expiration Date V isits Requested Visits Authorized [id number] Authorized 03/20/2023 03/19/2024 1 1 Specialty Diagnoses / Procedures Referred By Contac t Referred To Contact Cardiology Diagnoses Paroxysmal atrial fibrillation (HCC) Mitral valve insufficiency, unspecified etiology Mixed hyperlipidemia Primary hypertension Vitamin D deficiency disease Procedures EKG 12 Lead Kyle Austin MD [address] [place] [address] Referral ID Status Reason Start Date Expiration Date Visits Re quested Visits Authorized [id number] Open 04/19/2024 04/19/2025 1 1 Assessments Diagnosis Essential hypertension Unspecified [...] section and content) DATE CREATED AUTHOR 04/23/2018 [facility] DATE CREATED AUTHOR AUTHOR'S ORGANIZ ATION 07/21/2021 [facility] DATE CREATED AUTHOR AUTHOR'S ORGANIZ ATION 09/03/2022 [facility] DATE CREATED AUTHOR AUTHOR'S ORGANIZ ATION 09/11/2023 [facility] DATE CREATED AUTHOR AUTHOR'S ORGANIZ ATION 12/25/2023 [facility] DATE CREATED AUTHOR AUTHOR'S ORGANIZ ATION 12/29/2023 [facility] DATE CREATED AUTHOR AUTHOR'S ORGANIZ ATION 06/20/2024 [facility] DATE CREATED AUTHOR AUTHOR'S ORGANIZ ATION 07/02/2024 [facility] DATE CREATED AUTHOR AUTHOR'S ORGANIZ ATION 07/30/2024 [facility] DATE CREATED AUTHOR AUTHOR'S ORGANIZ ATION 08/02/2024 [facility] DATE CREATED AUTHOR AUTHOR'S ORGANIZ ATION 12/30/2024 [facility] Reason for Visit (unrecogniz ed section and content) Status Reason Specialty Diagnoses / Procedures Referre d By Contact Referred To Contact Closed Radiology Diagnoses Visit for screening mammogram Procedures [facility] DIGITAL SCREEN BILATERAL Medardo Robles MD [address] [place] [id number] Specialty Diagnoses / Procedures Referred By Contac t Referred To Contact Radiology Diagnoses Visit for screening mammogram Procedures [facility] DIGITAL SCREEN BILATERAL Medardo Robles MD [address] [place] [id number] Referral ID Status Reason Start Date Expiration Date Visits Re quested Visits Authorized [id number] Closed 01/24/2022 01/24/2023 1 1 Reason Comments Follow-up Reason Onset Date Comments Medication Refill 08/28/2022 Reason Comments Follow-up Patient has no new c ardiac concerns today Reason Onset Date Comments Medication Refill 11/13/2022 Reason Comments Follow-up 6 mo LAAO f/u pt has no complaints today Reason Comments Follow-up 1 year LAAO -no comp laints Reason Comments Follow-up 2 year LAAO f/u-- pt has no complaints today Care Teams (unrecognized sec tion and content) [employer] Relationship Specialty Start Date End Date Medardo Robles MD [address] [place] [id number] PCP - General Family Medicine 06/10/13 [employer] Relationship Specialty Start Date End Date Medardo Robles MD [address] [place] [address] PCP - General Family Medicine 06/10/13 [employer] Relationship Specialty Start Date End Date Medardo Robles MD [address] [place] [address] PCP - General Family Medicine 06/10/13 [employer] Relationship Specialty Start Date End Date Medardo Robles MD [address] [place] [address] PCP - General Family Medicine 06/10/13 [employer] Relationship Specialty Start Date End Date Medardo Robles MD [address] [place] [address] PCP - General Family Medicine 08/15/22 [employer] Relationship Specialty Start Date End Date Medardo Robles MD [address] [place] [address] PCP - General Family Medicine 08/15/22 [employer] Relationship Specialty Start Date End Date Medardo Robles MD [address] [place] [address] PCP - General Family Medicine 08/15/22 [employer] Relationship Specialty Start Date End Date Medardo Robles MD [address] [place] [address] PCP - General Family Medicine 08/15/22 [employer] Relationship Specialty Start Date End Date Medardo Robles MD [address] [facility] [place] [address] PCP - General Family Medicine 08/15/22 [employer] Relationship Specialty Start Date End Date Medardo Robles MD [address] [place] [address] PCP - General Family Medicine 08/15/22 [employer] Inspector Relationship Specialty Start Date End Date Medardo Robles MD [address] [place] [address] PCP - General Family Medicine 08/15/22 [employer] Inspector Relationship Specialty Start Date End Date Medardo Robles MD [address] [place] [address] PCP - General Family Medicine 08/15/22 [employer] Relationship Specialty Start Date End Date Medardo Robles MD [address] [place] [address] PCP - General Family Medicine 08/15/22 [employer] Relationship Specialty Start Date End Date Medardo Robles MD [address] [place] [address] PCP - General Family Medicine 08/15/22 [employer] Inspector Relationship Specialty Start Date End Date Medardo Robles MD [address] [place] [address] PCP - General Family Medicine 08/15/22 [employer] Relationship Specialty Start Date End Date Medardo Robles MD [address] [place] [address] PCP - General Family Medicine 06/10/13 [employer] Relationship Specialty Start Date End Date Medardo Robles MD [address] [place] [address] PCP - General Family Medicine 08/15/22 [employer] Relationship Specialty Start Date End Date Medardo Robles MD [address] [place] [address] PCP - General Family Medicine 08/15/22 [employer] Relationship Specialty Start Date End Date Medardo Robles MD [address] [place] [phone] PCP - General Family Medicine 08/15/22 [employer] Relationship Specialty Start Date End Date Medardo Robles MD [address] [place] [phone] PCP - General Family Medicine 08/15/22 [employer] Inspector Relationship Specialty Start Date End Date Medardo Robles MD [address] [place] [phone] PCP - General Family Medicine 06/10/13 [employer] Relationship Specialty Start Date End Date Medardo Robles MD [address] [place] [phone] PCP - General Family Medicine 06/10/13 [employer] Relationship Specialty Start Date End Date Medardo Robles MD [address] [place] [address] PCP - General Family Medicine 06/10/13 [employer] Relationship Specialty Start Date End Date Medardo Robles MD [address] [place] [phone] PCP - General Family Medicine 06/10/13 [employer] Relationship Specialty Start Date End Date Medardo Robles MD [address] [place] [address] PCP - General Family Medicine 06/10/13 [employer] Relationship Specialty Start Date End Date Medardo Robles MD [address] [place] [address] PCP - General Family Medicine 08/15/22 Scheduled Active and Recently Administ ered Medications (unrecognized section and content) Medication Order 09/13/2022 09/14/2022 09/15/2022 allopurinoL (ZYLOPRIM) tablet 100 mg 100 mg, Oral, Daily, First dose on Sun09/14/22 [...] RN)0954 (Stopped - Provider: Maty Damian RN)1418 (MAR Hold - Provider: Transfer Provider, Automatic - Reason: Patient not available)1500 (Stopped - Provider: Maty Damian RN - Comment: not running on admit to inpatient floor)1517 (MAR Unhold - Provider: Transfer Provider, Automatic) clindamycin [...] daily, First dose on Sun09/14/22 at 2100 2021 (Given - Provider: Kristin Nguyen RN) 0829 (Given - Provider: Maty Damian RN) potassium chloride SA (K-DUR,KLOR-CON) CR tablet 20 mEq 20 mEq, Oral, Daily, First dose on Sun09/14/22 at 1700, DO NOT CRUSH OR CHEW (if instructed may dissolve tablet(s) in liquid) DO NOT ADMINISTER DISSOLVED TABLET VIA SURGICALLY PLACED TUBE OR TUBE less than 14 [place]. To administer dissolved tablet(s) mix with 4 ounces of water over 2-3 minutes, stir for 30 seconds prior to administration; rinse dosing cup and administer residual medication to ensure full dose given 1621 (Given - Provider: Maty Damian RN) 0829 (Given - Provider: Maty Damian RN) Continuous Medication Order 09/13/2022 09/14/2022 09/15/2022 lactated Ringers infusion 50 mL/hr, Intravenous, Continuous, Starting on Emily 09/14/22 at 1515, PACU (only) 1515 (Canceled Entry - Provider: Maty Damian RN) sodium chloride 0.9% (NS) 20 mL/hr, Intravenous, Continuous, Starting on Emily 09/14/22 at 0945 0924 (New Bag - Provider: [...] Maty Damian RN)0836 (Restarted - Provider: Maty Damian RN)1009 (Stopped - Provider: Maty Damian RN) sodium [...] BE BASED ON THE PRIMARY CLINICAL RECORDS. [employer] [facility] provides no warranty or guarantee of the accuracy or completeness of information in this document.
== END 2025-01-09 10:04 | disposition home or self-care (01) ==
LOC: US 10:03
PROVIDERS: Visit Provider Urology
DX: N20.0 Calculus of kidney (principal)
CPT/HCPCS: 74018; 76775

== ENCOUNTER 2025-01-23 13:14 | Outpatient (OUT) | payer MEDICARE, SELFPAY ==
--- NOTE | 2025-01-23 13:16 | ECG_ITS ---
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
--- OUTSIDE RECORDS SUMMARY | 2025-01-23 13:32 | XMS_ITS | CCD ---
Author Organization [facility] CliniSysd Care Team Providers Care Glove Sewer Name Role Phone Medardo Robles Primary Care [...] Provider Medardo Robles MD Primary Care Provider [phone] UBALDO ANGULOISH Ángela Admitting Unavailable MEDARDO ROBLES Primary Care Unavailable Medardo Robles MD Primary Care Provider MEDARDO ROBLES Primary Care Physician ADELE, ATISH P Referring Unavailable ADELE ATISH P Attending Unavailable MEDARDO ROBLES Primary Care Unavailable MEDARDO ROBLES Primary Care Unavailable MEDARDO ROBLES Primary Care Unavailable MEDARDO ROBLES Primary Care Unavailable ADELE, ATISH P Attending Unavailable ADELE, ATISH P Admitting Unavailable MEDARDO ROBLES. Primary Care Unavailable Rachel FLORES Attending Unavailable Rachel FLORES Attending Unavailable Francisco Javier Lashaun J Admitting Unavailable Lashaun Mcintyre J Attending Unavailable Rachel FLORES Attending Unavailable MEDARDO ROBLES Referring Unavailable MEDARDO ROBLES Primary Care Unavailable JESSICA COOPER Referring Unavailable VERHOFF, MEDARDO L Primary Care Unavailable RACHEL FLORES Referring Unavailable VERHOFF, MEDARDO L Primary Care Unavailable VIGESAA, KYLE S Referring Unavailable VERHOFF, MEDARDO L Primary Care Unavailable CLINJESSICA LUNDBERG Andria Referring Unavailable VERHOFF, MEDARDO L Primary Care [...] ARCHULETA Attending Unavailable Rachel FLORES Attending Unavailable ANAI GAITAN Attending Unavailable ANAI GAITAN Admitting Unavailable ANAI GAITAN Attending Unavailable Rachel FLORES Attending Unavailable Allergies Allergy Classification Reported Allergen(s) Allergy Type Date of Onset Reaction(s) Facility (20 sources) Penicillins; Translations: [PENICILLINS] Propensity to adverse reactions to drug 1 Nausea And Vomiting, Unknown (qualifier value), Other (See Comments) [place], [place] (16 sources) Sulfonamides (Antibiotic) Propensity to adverse reactions to drug 1 Nausea And Vomiting [place], [place] (1 source) Penicillin Drug Allergy 7 [facility] (1 source) Sulfonamides (Antibiotic) Drug allergy (disorder) 7 [facility] (20 sources) Penicillins Propensity to adverse reactions to drug 1 Other (See Comments), Nausea And Vomiting [facility] (20 sources) Sulfonamides (Antibiotic); Translations: [SULFA (SULFONAMIDE ANTIBIOTICS)] Propensity to adverse reactions to drug 1 Other (See Comments), Nausea And Vomiting [facility] (10 sources) Sulfonamides (Antibiotic); Translations: [sulfa drugs] Drug allergy Unknown (qualifier value) [facility] (3 sources) Penicillin; Translations: [penicillins] Drug Allergy Unknown (qualifier value) [facility] Medications Current Medications Medication Drug Class(es) Dates Sig (Normalized) Sig (Original) alendronic acid 70 mg oral tablet (20 sources) Bisphosphonate Start: 04-14-2019 alendronate 70 mg oral tablet 70 mg = 1 tab(s), Oral, q7day, # 4 tab(s), Refills(s) 0 Start Date: 05/19/19 Status: Ordered Quantity: 4.0 Unit: tab(s) Repeat number: 1 allopurinol 100 mg oral tablet (20 sources) [...] 10/20/2020 Active cephalexin 500 mg oral capsule (6 sources) Cephalosporin Antibacterial Start: 01-12-2025 End: 01-19-2025 take 1 capsule by mouth every twelve hours Keflex 500 mg Cap 500 mg = 1 cap(s), Oral, q12hr, X 7 day(s), # 14 cap(s), Refills(s) 0, Pharmacy: [facility], 163, cm, 01/12/25 13:22:00 EDT, Height/Length Dosing, 82.4, kg, 01/12/25 13:22:00 EDT, Weight Dosing Start Date: 01/12/25 Stop Date: 01/19/25 Status: Ordered Quantity: 14.0 Unit: cap(s) Repeat number: 1 Indications: Unspecified symptoms and signs involving the genitourinary system; Start: 11-06-2023 take 1 capsule by mo [facility] twice daily cephALEXin (KEFLEX) 500 MG capsule [...] Start: 04-26-2023 take 1 capsule by mo [facility] once daily dilTIAZem (CARDIZEM CD) 120 MG extended release capsule Take 1 capsule by mouth daily 90 capsule 3 04/26/2023 Active Start: 05-19-2019 take 1 capsule by mo [facility] every hour Cartia XT 120 mg/24 hours oral capsule, extended release Refills(s) 0 Start Date: 05/19/19 Status: Ordered Repeat number: 1 Start: 07-15-2018 End: 09-15-2022 take 1 capsule [...] Active Start: 07-11-2021 take 1 capsule by [facility] once daily doxycycline hyclate 100 mg Cap 100 mg = 1 cap(s), Oral, Daily, Take 1 pill the day before the procedure and 1 pill after the procedure, # 2 cap(s), Refills(s) 0, [facility], 163, cm, 07/11/21 11:42:00 EST, Height/Length Dosing, 84.1, kg, 07/11/21 11:42:00 E... Start Date: 07/11/21 Status: Ordered hydroCHLOROthiazide 50 mg oral tablet (20 sources) Thiazide Diuretic Start: 06-23-2024 take 1 tablet by mouth once daily hydrochlorothiazide 50 mg Tab 50 mg = 1 tab(s), Oral, Daily, # 90 tab(s), Refills(s) 3, Pharmacy: [facility], 163, cm, 06/23/24 9:52:00 EST, Height/Length Dosing, 82, kg, 06/23/24 9:52:00 EST, Weight Dosing Start Date: 06/23/24 Status: Ordered Quantity: 90.0 Unit: tab(s) Repeat number: 4 Start: 07-11-2021 take 1 tablet by [facility] once daily hydroCHLOROthiazide (HYDRODIURIL) 50 MG tablet Take 1 tablet by mouth daily 10/19/2022 Active Start: 01-11-2015 End: 09-15-2022 take 1 tablet by mouth once daily hydrochlorothiazide 25 mg Tab 25 mg = 1 tab(s), Oral, Daily, # 90 tab(s), Refills(s) 3, [facility], 163, cm, 04/04/21 11:03:00 EST, Height/Length Dosing, 84, kg, 04/04/21 11:03:00 EST, Weight Dosing Start Date: 04/04/21 Status: Ordered lisinopril 5 mg oral tablet (20 sources) Angiotensin Converting Enzyme Inhibitor Start: 08-26-2018 End: 09-15-2022 lisinopril 5 mg Tab Refills(s) 0 Start Date: 05/19/19 Status: Ordered Repeat number: 1 metoprolol tartrate 50 mg oral tablet (20 [...] Refills(s) 0 Start Date: 05/19/19 Status: Ordered Repeat number: 1 Start: 02-17-2019 End: 09-15-2022 take 1 tablet [...] day(s), # 14 cap(s), Refills(s) 0, Pharmacy: [facility], 163, cm, 11/16/23 10:15:00 EDT, Height/Length [...] # 60 tab(s), Refills(s) 11, [facility] [address], cm, 07/26/21 10:30:00 EST, Height/Length Dosing, 84.1, kg, 07/11/21 11:42:00 EST, Weight Dosing Start Date: 11/01/21 Status: Ordered potassium chloride 20 meq powder for oral solution (20 sources) Start: 06-27-2024 End: 06-22-2025 Klor-Con 20 mEq oral powder for reconstitution 20 mEq = 1 packet(s), Oral, BID, X 30 day(s), # 60 packet(s), Refills(s) 11, Pharmacy: [facility], 163, cm, 06/23/24 9:52:00 EST, Height/Length Dosing, 82, kg, 06/23/24 9:52:00 EST, Weight Dosing Start Date: 06/27/24 Stop Date: 06/22/25 Status: Ordered Quantity: 60.0 Unit: packet(s) Repeat number: 12 Indications: Urinary tract infection, site not specified; Start: 12-03-2023 take 1 tablet by lupe th twice daily potassium chloride (KLOR-CON M) 20 [...] PLACED TUBE OR TUBE less than 14 Tunisian. To administer dissolved tablet(s) mix with 4 [...] Refills(s) 0 Start Date: 05/19/19 Status: Ordered Repeat number: 1 calcium chloride 0.0014 meq/ml / potassium chloride [...] MELVIN, # 60 tab(s), Refills(s) 11, Pharmacy: [facility], 163, cm, 06/23/24 9:52:00 EST, Height/Length Dosing, 82, kg, 06/23/24 9:52:00 EST, Weight Dosing Start Date: 06/23/24 Status: Ordered Start: 11-16-2023 take 1 tablet by lupe th twice daily K-Effervescent 25 mEq oral tablet, effervescent 25 mEq = 1 tab(s), Oral, BID, MELVIN, # 60 tab(s), Refills(s) 11, Pharmacy: [id number], 163, cm, 11/16/23 10:15:00 EDT, Height/Length Dosing, [...] 05-12-2015 Chronic Genitourinary symptoms and ill-defined conditions (19 sources) Dysuria; Translations: [Dysuria] Onset: 04-09-2021 Episodic Heart valve disorders (20 sources) Mitral valve regurgitation; Translations: [Nonrheumatic mitral (valve) insufficiency] Onset: 12-04-2013 12-04-2013 Chronic Nutritional deficiencies (20 sources) Vitamin D deficiency; Translations: [Vitamin D deficiency, unspecified] Onset: 09-29-2016 09-29-2016 Chronic Osteoporosis (20 sources) Osteoporosis; Translations: [Age-related osteoporosis without current pathological fracture] Onset: 05-12-2015 05-12-2015 Chronic Other aftercare (7 sources) Long-term current use of anticoagulant 04-02-2020 [...] Episodic Other diseases of kidney and ureters (7 sources) Cyst of kidney 11-17-2022 Episodic Other nutritional; endocrine; and metabolic disorders (1 source) Obese class I; Translations: [Body mass index (BMI) 31.0-31.9, adult] Onset: 11-17-2022 Chronic Other nutritional; endocrine; and metabolic disorders (7 sources) Body mass index 30+ - obesity 11-17-2022 Chronic Residual codes; unclassified (1 source) Patient encounter status; Translations: [Other specified health status] Onset: 11-17-2022 Episodic Unclassified (7 sources) Asymptomatic microscopic hematuria 04-02-2020 Unclassified (7 sources) Long-term current use of aspirin 04-02-2020 Unclassified (7 sources) Non-smoker 11-17-2022 Unclassified (2 sources) Chronic atrial fibrillation, unspecified; Translations: [Chronic atrial fibrillation, unspecified] Onset: 03-15-2023 Unclassified (1 source) Pyuria; Translations: [Pyuria] Onset: 02-29-2024 Urinary tract infections (13 sources) Urinary tract infectious disease; Translations: [Urinary [...] source) penitentiary (current) use of anticoagulants; Translations: [RETIREMENT CURRNT USE ANTICOAGULANTS] Onset: 04-09-2021 Episodic Other [...] Reference Range Facility Ambulatory Visit Summaryon 0 01-12-2025 Ambulatory Visit Summary Ambulatory Visit Summary SAPNA BREEN :1950 Visit Date:01/12/2025 Ambulatory Visit Instructions Your Diagnosis Kidney stone UTI symptoms Your Care Team Attending Physician - SANDRA SAMSON, Rachel Peña Primary Care Physician - CONNER SAMSON, MEDARDO Rubio This Is Your Medications List cephalexin (Keflex 500 mg Cap) hydrochlorothiazide (hydrochlorothiazide 50 mg Tab) potassium chloride [...] kidney, ESWL of kidney, Watchman. Discharge Vitals Temperature (Temporal Artery) 37 ???C Heart Rate (Peripheral) 62 Respiratory Rate 16 Blood Pressure 130/88 Height 163 cm Height 64 in Weight 82.4 kg Weight 181.661 lb BMI 31.01 What to do next You Need to Schedule the Following Appointments Follow Up with SANDRA SAMSON, Rachel Peña, [place] When: Comments: venkatesh R then L URS, laser litho Where: [address] [place] [address] [place] [address] Medications What How Much When Why Instructions New cephalexin (Keflex 500 mg Cap) 1 Capsules By Mouth Every 12 hours UTI symptoms Duration: 7 Days Pickup at [facility] Unchanged hydrochlorothiazide (hydrochlorothiazide 50 mg Tab) 1 Tablets By Mouth Every day Unchanged potassium chloride (Klor-Con 20 mEq oral powder for reconstitution) 1 Packets By Mouth 2 times a day UTI (urinary tract infection) Duration: 30 Days Unchanged alendronate (alendronate 70 [...] Contact prescribing physician if questions or concerns Pharmacy Information [facility]: [address], [place] [id number] [phone] Allergies penicillins (Unknown) sulfa drugs (Unknown) Problems Ongoing - Any problem that you are currently receiving treatment for. Anticoagulant long-term use Aspirin long-term use Asymptomatic microscopic hematuria Atrial fibrillation BMI 31.0-31.9,adult Gross hematuria Kidney stone Non-smoker Renal cyst UTI (urinary tract infection) UTI symptoms Patient Survey You may receive a survey via text or e-mail asking about your office visit. Please share your experience with us by completing your survey. We appreciate your feedback and thank you for choosing us for your care. Education Materials Laser Therapy for Kidney Stones, Care After After laser therapy for kidney stones, it is common to have: ??? Pain. ??? A burning feeling when you pee (urinate). ??? Small amounts of blood in your pee (urine). ??? A need to pee a lot. ??? Parts of the kidney stone in your pee. ??? Mild discomfort in your back when you pee. You may have this if you had a small mesh tube (stent) placed during the procedure. Follow these instructions at home: Medicines ??? Take aiip-urf-vfyraya and prescription medicines only as told by your health care provider. ??? If you were prescribed antibiotics, take them as told by your provider. Do not stop using the antibiotic even if you start to feel better. ??? Ask your provider if the medicine prescribed to you: ? Requires you to avoid driving or using machinery. ? Can cause constipation. You may need to take these actions to prevent or treat constipation: ? Drink enough fluid to keep your pee pale yellow. ? Take ejmp-hfa-fxsrvuh or prescription medicines. ? Eat foods that are high in fiber, such as beans, whole grains, and fresh fruits and vegetables. ? Limit foods that are high in fat and processed sugars, such as fried or sweet foods. Activity ??? If you were given a sedative during the procedure, it can affect you for several hours. Do not drive or operate machinery until your provider says that it is safe. ??? Return to your normal activities as told by your provider. Ask your provider what activities are safe for you. General instructions ??? Your provider may recommend that you drink a lot of water for a few hours after your procedure. If you have heart or kidney disease, ask your provider how much you should drink. ??? You ma (more content not included)... Normal [facility] Urology Office/Clinic Noteon 01-12-2025 Urology Office/Clinic Note Urology Office/Clinic Note Chief Complaint F/u with AILEEN and KUB HPI Staff 6 month f/u with KUB and AILEEN Dx: kidney stone HCTZ 50mg qd and Effer-K 25 mEq BID Pt states that for the past few months she has noticed a stinging feeling externally when she voids. Denies all other urinary concerns at this time. History of Present Illness Tests reviewed: reviewed UA, stone analysis, KUB, AILEEN I have reviewed the previous health record information and history for this patient from Anai Gaitan PA-C. I have reviewed and verified the staff HPI to be accurate for this encounter. Review of Systems PHQ Score Initial [...] See HPI. Physical Exam Vitals & Measurements T: 37 ???C(Temporal Artery) HR: 62(Peripheral) RR: 16 BP: 130/88 HT: 163 cm HT: 64 in WT: 181.661 lb WT: 82.4 kg BMI: 31.01 General Appearance: alert , no acute distress, well nourished, well developed female. Assessment/Plan Last seen by PARISA 1. Kidney stone (N20.0: Calculus of kidney) Metabolic workup 04/19/21 - Mildly high serum uric acid. High urine Ca. Low citric acid. KUB 11/16/23 [facility] - 8.7 mm R stone. S/p R ESWL 12/27/23. Stone analysis 06/23/24 - 70% CaOx Di, 30% [place] Zandt. KUB 06/17/24 - possible 5mm R renal stone, moderate stool. KUB 01/09/25 [facility] - Neg. Overlying stool. AILEEN 01/09/25 [facility] - Bilat renal calculi, up to 7 mm (side not specified). No hydro. Taking HCTZ 50mg qd and Klor-Con 20meq bid (insurance would not cover Effer-K). Reviewed imaging results. Discussed difficulty visualizing stone via x-ray but US does show significant stone burden. Discussed options including continued monitoring and repeating metabolic workup vs ESWL (not recommended given poor visualization with x-ray) vs ureteroscopy, laser litho, possible stent placement. Risks/benefits of each discussed. Pt elects to proceed with ureteroscopy. -Will schedule a Cystoscopy with Right Ureteroscopy, Right Laser Litho, Right Stone Basket, Right possible stent placement. The procedure risks, benefits, alternatives and complications have been discussed with the patient. These include but are not limited to bleeding, pain, infection, ureteral perforation, extravasation, stricture formation, sepsis, obstruction, inability to reach the stone, inability to fragment the stone, and inability to retrieve all stone fragments. The need for ancillary procedures such as stent placement and removal, retrograde urography, and percutaneous nephrostomy were also discussed. The patient also understood that a ureteral stent may be placed and removal of the stent is critical. Failure to follow up for stent removal can result in recurrent UTIs, encrustation of the stent, loss of kidney function and need for nephrectomy. All of their questions and concerns have been addressed. Full informed consent has been obtained. Will order General anesthesia. -Will proceed with left side after -Complete metabolic workup after stone procedures 2. UTI symptoms (R39.9: Unspecified symptoms and signs involving the genitourinary system) UA shows large leuks. Burning/stinging sensation when voiding. Ongoing for the last few months. Denies malodorous urine. No gross hematuria. Denies straining to void. Discussed pt may be infected and will culture urine to confirm this. -Urine sample to be sent for culture. Will call pt with results and adjust abx if resistant. -Take Keflex 500 mg bid x1 wk -Increase water intake Follow-up With When Contact Information Rachel FLORES MD, URL [address] [address] [place] [address] Additional Instructions: sched R then L URS, laser litho Patient Education Laser Therapy for Kidney Stones, Care After Laser Therapy for Kidney Stones I, Oneyda Stafford, personally scribed for Dr. Flores on 01/12/2025 14:51:09. . Documentation recorded by the scribeOneyda, accurately reflects the services(s) I performed and decisions made by me. Authenticated by Dr. Flores on 01/12/2025 14:52:27. Problem List/Past Medical History Ongoing Anticoagulant long-term use Aspirin long-term use Asymptomatic microscopic hematuria Atrial fibrillation BMI 31.0-31.9,adult Gross hematuria Kidney stone Non-smoker Renal cyst UTI (urinary tract infection) UTI symptoms Historical No qualifying data Procedure/Surgical History Procedure on heart valve (09/14/2021), Lithotripsy of kidney (05/21/2010), Cystoscopy, ESWL of kidney, ESWL o (more content not included)... Normal [facility] Comment on above: Result Comment: Elec tronically Signed By: Rachel FLORES MD\.br\Date and Time Signed: 01/12/25 14:52 EDT\.br\Electronically Co-Signed By: Oneyda Stafford\.br\Date and Time Co-Signed: 01/12/25 14:51 EDT BASIC METABOLIC PANEL WITH A MINOR Bird 07-30-2024 BUN/CREATININE RATIO SEE NOTE: Normal 6-22 [facility]ues [facility] Comment on above: Result Comment: Not Reported: BUN and Creatinine are within reference range. Performed By: #### 6 399, [id number] #### [facility] [address], [address] [place] [address] Coding Advisor: Sai Saldana MD Calcium [Mass/Vol] 10.0 mg/dL Normal 8.6-10.4 [facility] Comment on above: Performed By: #### 6 399, 97966 #### [facility] [place] [address] Coding Advisor: Sai Saldana MD Chloride [Moles/Vol] 108 mmol/L Normal 98-110 [facility] Comment on above: Performed By: #### 6 399, 33183 #### [facility] [place] [address] Coding Advisor: Sai Saldana MD CO2 [Moles/Vol] 22 mmol/L Normal 20-32 [facility] Comment on above: Performed By: #### 6 399, 92310 #### [facility] [place] [address] Coding Advisor: Sai Saldana MD Creatinine [Mass/Vol] 0.79 mg/dL Normal 0.60-1.00 [facility] Comment on above: Performed By: #### 6 399, 57362 #### [facility] [place] [address] Coding Advisor: Sai Saldana MD ELECTROLYTE BALANCE 10 mmol/L (calc) Normal 7-17 [facility] Comment on above: Performed By: #### 6 399, 29769 #### [facility] [place] [address] Coding Advisor: Sai Saldana MD GFR/1.73 sq M.predicted among non-blacks MDRD (S/P/Bld) [Vol rate/Area] 78 mL/min/{1.73_m2} Normal > OR = 60 [facility] Comment on above: Performed By: #### 6 399, 33347 #### [facility] [place] [address] Coding Advisor: Sai Saldana MD Glucose [Mass/Vol] 110 mg/dL High 65-99 [facility] Comment on above: Result Comment: Fasting reference interval For someone without known diabetes, a glucose value between 100 and 125 mg/dL is consistent with prediabetes and should be confirmed with a follow-up test. Performed By: #### 6 399, 57094 #### [facility] [place] [address] Coding Advisor: Sai Saldana MD Potassium [Moles/Vol] 4.1 mmol/L Normal 3.5-5.3 [facility] Comment on above: Performed By: #### 6 399, 44075 #### [facility] [place] [address] Coding Advisor: Sai Saldana MD Sodium [Moles/Vol] 140 mmol/L Normal 135-146 [facility] Comment on above: Performed By: #### 6 399, 82364 #### [facility] [place] [address] Coding Advisor: Sai Saldana MD Urea nitrogen [Mass/Vol] 14 mg/dL Normal 7-25 [facility] Comment on above: Performed By: #### 6 399, 79771 #### [facility] [place] [address] Coding Advisor: Sai Saldana MD CBC (INCLUDES DIFF/PLT)on Basophils (Bld) [#/Vol] 0.03 10*3/uL Normal 0-200 [facility] Comment on above: Performed By: #### 6 399, 23399 #### [facility] [place] [address] Coding Advisor: Sai Saldana MD Basophils/100 WBC (Bld) 0.5 % Normal [facility] Comment on above: Performed By: #### 6 399, 56490 #### [facility] [place] [address] Coding Advisor: Sai Saldana MD Eosinophils (Bld) [#/Vol] 0.047 10*3/uL Normal 15-500 [facility] Comment on above: Performed By: #### 6 399, 69845 #### [facility] of [address], [address] [place] [address] Coding Advisor: Sai Saldana MD Eosinophils/100 WBC (Bld) 0.8 % Normal [facility] Comment on above: Performed By: #### 6 399, 65000 #### [facility] [place] [address] Coding Advisor: Sai Saldana MD Erythrocyte distribution width (RBC) [Ratio] 12.7 % Normal 11.0-15.0 [facility] Comment on above: Performed By: #### 6 399, 00061 #### [facility] of [address], [address] [place] [address] Coding Advisor: Sai Saldana MD Hematocrit (Bld) [Volume fraction] 40.1 % Normal 35.0-45.0 [facility] Comment on above: Performed By: #### 6 399, 84528 #### [facility] of [address], [address] [place] [address] Coding Advisor: Sai Saldana MD Hemoglobin (Bld) [Mass/Vol] 13.3 g/dL Normal 11.7-15.5 [facility] Comment on above: Performed By: #### 6 399, 89486 #### [facility] of [address], [address] [place] [address] Coding Advisor: Sai Saldana MD Lymphocytes (Bld) [#/Vol] 1.746 10*3/uL Normal 850-3900 [facility] Comment on above: Performed By: #### 6 399, 41439 #### [facility] [place] [address] Coding Advisor: Sai Saldana MD Lymphocytes/100 WBC (Bld) 29.6 % Normal [facility] Comment on above: Performed By: #### 6 399, 22651 #### [facility] [place] [address] Coding Advisor: Sai Saldana MD MCH (RBC) [Entitic mass] 31.7 pg Normal 27.0-33.0 [facility] Comment on above: Performed By: #### 6 399, 12341 #### [facility] [place] [address] Coding Advisor: Sai Saldana MD MCHC (RBC) [Mass/Vol] 33.2 [...] clinical condition. Performed By: #### 6 399, 15519 #### [facility] [place] [address] Coding Advisor: Sai Saldana MD MCV (RBC) [Entitic vol] 95.7 fL Normal 80.0-100.0 [facility] Comment on above: Performed By: #### 6 399, 20058 #### [facility] [place] [address] Coding Advisor: Sai Saldana MD Monocytes (Bld) [#/Vol] 0.608 10*3/uL Normal 200-950 [facility] Comment on above: Performed By: #### 6 399, 83529 #### [facility] [place] [address] Coding Advisor: Sai Saldana MD Monocytes/100 WBC (Bld) 10.3 % Normal [facility] Comment on above: Performed By: #### 6 399, 19685 #### [facility] [place] [address] Coding Advisor: Sai Saldana MD Neutrophils (Bld) [#/Vol] 3.469 10*3/uL Normal 9666-5692 [facility] Comment on above: Performed By: #### 6 399, 13696 #### [facility] [place] [address] Coding Advisor: Sai Saldana MD Neutrophils/100 WBC (Bld) 58.8 % Normal [facility] Comment on above: Performed By: #### 6 399, 19818 #### [facility] [place] [address] Coding Advisor: Sai Saldana MD Platelet mean volume (Bld) [Entitic vol] 10.6 fL Normal 7.5-12.5 [facility] Comment on above: Performed By: #### 6 399, 31281 #### [facility] [place] [address] Coding Advisor: Sai Saldana MD Platelets (Bld) [#/Vol] 234 10*3/uL Normal 140-400 [facility] Comment on above: Performed By: #### 6 [id number], [id number] #### [facility] [place] [address] Coding Advisor: Sai Saldana MD RBC (Bld) [#/Vol] 4.19 10*6/uL Normal 3.80-5.10 [facility] Comment on above: Performed By: #### 6 399, [id number] #### [facility] [place] [address] Coding Advisor: Sai Saldana MD WBC (Bld) [#/Vol] 5.9 10*3/uL Normal 3.8-10.8 [facility] Comment on above: Performed By: #### 6 399, [id number] #### [facility] [place] [address] Coding Advisor: Sai Saldana MD ECG 12 LeadOrdered By: Stephanie Blackwood on 07-29-2024 Atrial Rate [facility] Work Phone: P [place] [facility] Work Phone: P-R Interval [facility] Work Phone: Q-T Interval [facility] Work Phone: Q-T Interval (corrected) [facility] Work Phone: QRS Duration [facility] Work Phone: QTC Calculation (Bezet) [facility] Work Phone: R [place] [facility] Work Phone: T [place] [facility] Work Phone: Ventricular Rate [facility] Work Phone: [facility] Work Phone: Calculus Analysison 06-30-19 25 Calcium oxalate dihydrate Infrared spectroscopy (Stone) [Mass fraction] 70 % Invalid Interpretation Code [facility] Comment on above: Performed By: #### 1 [id number] #### [facility] [address] [place] [address] Calcium oxalate monohydrate (Stone) [Mass fraction] 30 % Invalid Interpretation Code [facility] Comment on above: Performed By: #### 1 [id number] #### [facility] [address] [place] [address] Color (Stone) Borja Invalid Interpretation Code [facility] Comment on above: Performed By: #### 1 [id number] #### [facility] [address] [place] [address] Composition Comment Invalid Interpretation Code [facility] Comment on above: Result Comment: Perc entage (Represents the % composition) Performed By: #### 1 [id number] #### [facility] [address] [place] [address] Disclaimer: Comment Invalid Interpretation Code [facility] Comment on above: Result Comment: This test was developed and its performance characteristics determined by [employer]. It has not been cleared or approved by the Food and Drug Administration. Performed at: [address] [id number] PhD Yancy Banegas Performed By: #### 1 [id number] #### [facility] [address] [place] [address] Laboratory comment Keagan (Report) Comment Invalid Interpretation Code [facility] Comment on above: Result Comment: Patricia frank questions regarding Calculi Analysis contact [facility] at: [phone]. Performed By: #### 1 [id number] #### [facility] [address] [place] [address] Please Note: Comment Invalid Interpretation Code [facility] Comment on above: Result Comment: Calc rachel report will follow via computer, mail or hand bootmaker delivery. Performed By: #### 1 [id number] #### [facility] [address] [place] [address] Size (Stone) [Entitic vol] 2x2 Invalid Interpretation Code [facility] Comment on above: Result Comment: Mult iple pieces received. Dimensions of the largest piece reported. Performed By: #### 1 [id number] #### [facility] [address] [place] [address] Specimen source subject Nom Comment Invalid Interpretation Code [facility] Comment on above: Result Comment: Not provided Performed By: #### 1 [id number] #### [facility] [address] [place] [address] Stone Photo Comment Invalid Interpretation Code [facility] Comment on above: Result Comment: Phot ograph will follow under a separate cover Performed By: #### 1 [id number] #### [facility] [address] [place] [address] Weight (Stone) 39 mg Invalid Interpretation Code [facility] Comment on above: Performed By: #### 1 [id number] #### [facility] [address] [place] [address] Urology Office/Clinic Noteon 06-23-2024 Urology Office/Clinic Note [...] E&M of Est. Patient Moderate 30-39 Min 26374 Urnls Dip Stick Auto w/o Microscopy POC [id number] Orders: hydrochlorothiazide, 50 mg = 1 tab(s), Oral, Daily, # 90 tab(s), Refills(s) 3, Pharmacy: [facility], 163, cm, 06/23/24 9:52:00 EST, Height/Length Dosing, 82, kg, 06/23/24 9:52:00 EST, Weight Dosing potassium bicarbonate, 25 mEq = 1 tab(s), Oral, BID, MELVIN, # 60 tab(s), Refills(s) 11, Pharmacy: [facility], 163, cm, 06/23/24 9:52:00 EST, Height/Length Dosing, 82, kg, 06/23/24 9:52:00 EST, Weight Dosing Follow-up With When Contact Information DOREEN STEVE, ANAI Gottlieb, URL In 6 months [address] [place] [address] Additional Instructions: Patient Education Kidney Stones, [id number] Problem List/Past Medical History Ongoing Anticoagulant long-term [...] virus vaccine, inactivated 02/16/2022 Recorded SARS-CoV-2 (COVID-19) [id number] 02/16/2022 Recorded pneumococcal 20-valent conjugate vaccine 01/09/2022 [...] Dipstick: 1+ (30 mg/dl) (06/23/24 09:49:00) Specific [place] Urine Dipstick: 1.015 (06/23/24 09:49:00) Urine Appearance Urine Dipstick: Clear (06/23/24 09:49:00) Urine Color Urine Dipstick: Yellow (06/23/24 09:49:00) Urobilinogen Urine Dipstick: Normal 0.2-1 EU/dl (06/23/24 09:49:00) pH Urine Dipstick: 8 (06/23/24 09:49:00) Normal [facility] Comment on above: Result Comment: Elec tronically Signed By: DOREEN STEVE, ANAI Gottlieb\.br\Date and Time Signed: 06/23/24 10:41 EST XR [...] Armstrong Jr., MD 06/17/24 Final result Normal [facility] XR Abdomen Single viewon FINDINGS/IMPRESSION: 1. There may be a 5 mm residual calcification over the inferior pole right kidney, smaller than previously. 2. Calcified uterine fibroids unchanged. 3. Moderate stool. 4. Degenerative changes spine. [facility] EXAM: XR ABDOMEN (KU B) (SINGLE AP VIEW) HISTORY: Uric acid nephrolithiasis COMPARISON: CT abdomen and pelvis 07/13/2021. KUB [place], 12/27/2023. [facility] Navid Armstrong Jr., MD - 06/17/2024 EXAM: XR ABDOMEN (KUB) (SINGLE AP VIEW) HISTORY: Uric acid nephrolithiasis COMPARISON: CT abdomen and pelvis 07/13/2021. KUB [place], 12/27/2023. IMPRESSION: FINDINGS/IMPRESSION: 1. There may be a 5 mm residual calcification over the inferior pole right kidney, smaller than previously. 2. Calcified uterine fibroids unchanged. 3. Moderate stool. 4. Degenerative changes spine. [facility] Radiology Study observation (narrative) [facility] XR Abdomen Single viewOrdere d By: Navid Armstrong on 06-17-2024 [facility] Work Phone: XR CHEST (2 VW)on 04-02-2024 XR CHEST (2 VW) EXAM: XR CHEST (2 VW ) HISTORY: Paroxysmal atrial fibrillation (HCC) COMPARISON: 04/11/2022 IMPRESSION: FINDINGS/IMPRESSION: 1. There might be an atrial appendage occluder present. 2. Heart size normal. 3. Lungs clear. Interpreted by: Navid Armstrong Jr., MD Signed by: Navid Armstrong Jr., MD 04/02/24 Final result Normal [facility] XR Chest 2 Viewson FINDINGS/IMPRESSION: 1. There might be an atrial appendage occluder present. 2. Heart size normal. 3. Lungs clear. [facility] R[facility] CONSOL[facility] EXAM: XR CHEST (2 VW ) HISTORY: Paroxysmal atrial fibrillation (HCC) COMPARISON: 04/11/2022 [facility] Navid Armstrong Jr., MD - 04/02/2024 EXAM: XR CHEST (2 VW) HISTORY: Paroxysmal atrial fibrillation (HCC) COMPARISON: 04/11/2022 IMPRESSION: FINDINGS/IMPRESSION: 1. There might be an atrial appendage occluder present. 2. Heart size normal. 3. Lungs clear. [facility] [employer] XR Chest 2 ViewsOrdered By: Navid Armstrong on 04-02-2024 [facility] Work Phone: CBC with Auto Differentialon 04-01-2024 Basophils (Bld) [#/Vol] 0.02 10*3/uL [facility] Basophils/100 WBC (Bld) 1 % 0 - 2 % [facility] Eosinophils (Bld) [#/Vol] 0.05 10*3/uL [facility] Eosinophils/100 WBC (Bld) 1 % 0 - 5 % [facility] Erythrocyte distribution width (RBC) [Ratio] 13.4 % 12.1 - 15.2 % [facility] Hematocrit (Bld) [Volume fraction] 39.7 % 36.0 - 46.0 % [facility] Hemoglobin (Bld) [Mass/Vol] 13.4 g/dL 12.0 - 16.0 g/dL [facility] Immature granulocytes (Bld) [#/Vol] 0.01 10*3/uL [facility] Immature granulocytes/100 WBC (Bld) 0 % 0 - 5 % [facility] Interpretation and review of laboratory results Abnormal [facility] Lymphocytes/100 WBC (Bld) 39 % 15 - 40 % [facility] Lymphocytes/100 WBC (Bld) 1.57 % [facility] MCH (RBC) [Entitic mass] 32.1 pg 26.0 - 34.0 pg [facility] MCHC (RBC) [Mass/Vol] 33.8 g/dL 31.0 - 37.0 g/dL [facility] MCV (RBC) [Entitic vol] 95.0 fL 80.0 - 100.0 fL [facility] Monocytes/100 WBC (Bld) 10 % High 4 - 8 % [facility] Monocytes/100 WBC (Bld) 0.40 % [facility] Neutrophils/100 WBC (Bld) 49 % 47 - 75 % [facility] Platelet mean volume (Bld) [Entitic vol] 9.5 fL 6.0 - 12.0 fL [facility] Platelets (Bld) [#/Vol] 209 10*3/uL [facility] RBC (Bld) [#/Vol] 4.18 10*6/uL 4.00 - 5.2 0 m/uL [facility] Segmented neutrophils/100 WBC (Bld) 2.00 % Low [facility] WBC other (Bld) [#/Vol] 4.1 [facility] CBC with Diffon 04-01-2024 Abs. Basophil 0.02 k/uL Normal 0.00-0.20 [facility] Comment on above: Performed By: #### Crystal Lazcano, TSHX, CDP, CP #### [facility] [address] [place] [address] Customer Support Advisor: Lazarus Gan MD #### CLAYTON25 #### [address] [address] Customer Support Advisor: Drew Craven MD Abs.Imm.Granulocyte 0.01 k/uL Normal 0.00-0.30 [facility] Comment on above: Performed By: #### Crystal G, TSHX, CDP, CP #### [facility] [address] [place] [address] Customer Support Advisor: Lazarus Gan MD #### CLAYTON25 #### [place] [address] [place], [place] [phone] Customer Support Advisor: Drew Craven MD Abs.Neutrophil (Seg) 2.00 k/uL Low 2.5-7.0 [facility] Comment on above: Performed By: #### M G, TSHX, CDP, CP #### [facility] [address] [place], [place] 1866[address] Customer Support Advisor: Lazarus Gan MD #### LIPR, VD25 #### [facility] [place], [place] [phone] Customer Support Advisor: Drew Craven MD Basophils/100 WBC (Bld) 1 % Normal 0-2 [facility] Comment on above: Performed By: #### M G, TSHX, CDP, CP #### [facility] [address] [place], [place] [phone] Customer Support Advisor: Lazarus Gan MD #### LIPR, VD25 #### [address] [phone] Customer Support Advisor: Drew Craven MD Eosinophils (Bld) [#/Vol] 0.05 10*3/uL Normal 0.00-0.40 [facility] Comment on above: Performed By: #### M G, TSHX, CDP, CP #### [facility] [address] [place], [place] [phone] Customer Support Advisor: Lazarus Gan MD #### LIPR, VD25 #### [address] [phone] Customer Support Advisor: Drew Craven MD Eosinophils/100 WBC (Bld) 1 % Normal 0-5 [facility] Comment on above: Performed By: #### M G, TSHX, CDP, CP #### [facility] [address] [place], [place] [phone] Customer Support Advisor: Lazarus Gan MD #### LIPR, VD25 #### [address] [phone] Customer Support Advisor: Drew Craven MD Erythrocyte distribution width (RBC) [Ratio] 13.4 % Normal 12.1-15.2 [facility] Comment on above: Performed By: #### M G, TSHX, CDP, CP #### [facility] [address] [place], [place] [phone] Customer Support Advisor: Lazarus Gan MD #### LIPR, VD25 #### [address] [phone] Customer Support Advisor: Drew Craven MD Hematocrit (Bld) [Volume fraction] 39.7 % Normal 36.0-46.0 [facility] Comment on above: Performed By: #### M G, TSHX, CDP, CP #### [facility] [address] [place] [address] Customer Support Advisor: Lazarus Gan MD #### LIPR, VD25 #### [address] [phone] Customer Support Advisor: Drew Craven MD Hemoglobin (Bld) [Mass/Vol] 13.4 g/dL Normal 12.0-16.0 [facility] Comment on above: Performed By: #### M G, TSHX, CDP, CP #### [facility] [address] [place], [place] [phone] Customer Support Advisor: Lazarus Gan MD #### LIPR, VD25 #### [address] [address] Customer Support Advisor: Drew Craven MD Immature granulocytes/100 WBC (Bld) 0 % Normal 0-5 [facility] Comment on above: Performed By: #### M G, TSHX, CDP, CP #### [facility] [address] [place], [place] [phone] Customer Support Advisor: Lazarus Gan MD #### LIPR, VD25 #### [address] [phone] Customer Support Advisor: Drew Craven MD Lymphocytes (Bld) [#/Vol] 1.57 10*3/uL Normal 1.00-4.80 [facility] Comment on above: Performed By: #### M Jaleesa, TSHX, CDP, CP #### [facility] [address] [place], [place] [phone] Customer Support Advisor: Lazarus Gan MD #### LIPR, VD25 #### [address] [phone] Customer Support Advisor: Drew Craven MD Lymphocytes/100 WBC (Bld) 39 % Normal 15-40 [facility] Comment on above: Performed By: #### Crystal Lazcano, TSHX, CDP, CP #### [facility] [address] [place], [place] [phone] Customer Support Advisor: Lazarus Gan MD #### ROSALINDA, VD25 #### [place] [phone] Customer Support Advisor: Drew Craven MD MCH (RBC) [Entitic mass] 32.1 pg Normal 26.0-34.0 [facility] Comment on above: Performed By: #### Crystal Lazcano, TSHX, CDP, CP #### [facility] [address] [place], [place] [phone] Customer Support Advisor: Lazarus Gan MD #### ROSALINDA, VD25 #### [address] [phone] Customer Support Advisor: Drew Craven MD MCHC (RBC) [Mass/Vol] 33.8 g/dL Normal 31.0-37.0 [facility] Comment on above: Performed By: #### Crystal Lazcano, TSHX, CDP, CP #### [facility] [address] [place] [address] Customer Support Advisor: Lazarus Gan MD #### LIPR, VD25 #### [address] [phone] Customer Support Advisor: Drew Craven MD MCV (RBC) [Entitic vol] 95.0 fL Normal 80.0-100.0 [facility] Comment on above: Performed By: #### M Jaleesa, TSHX, CDP, CP #### [facility] [address] [place] [address] Customer Support Advisor: Lazarus Gan MD #### LIPR, VD25 #### [address] [address] Customer Support Advisor: Drew Craven MD Monocytes (Bld) [#/Vol] 0.40 10*3/uL Normal 0.00-1.00 [facility] Comment on above: Performed By: #### Crystal Lazcano, TSHEstee, CDP, CP #### [facility] [address] [place], [place] [phone] Customer Support Advisor: Lazarus Gan MD #### ROSALINDA, VD25 #### [address] [address] Customer Support Advisor: Drew Craven MD Monocytes/100 WBC (Bld) 10 % High 4-8 [facility] Comment on above: Performed By: #### Crystal Lazcano, TSHX, CDP, CP #### [facility] [address] [place] [address] Customer Support Advisor: Lazarus Gan MD #### ROSALINDA, VD25 #### [address] [address] Customer Support Advisor: Drew Craven MD Neutrophil (Seg) 49 % Normal 47-75 [facility] Comment on above: Performed By: #### M Jaleesa, TSHX, CDP, CP #### [facility] [address] [place] [address] Customer Support Advisor: Lazarus Gan MD #### ROSALINDA, VD25 #### [address] [phone] Customer Support Advisor: Drew Craven MD Platelet mean volume (Bld) [Entitic vol] 9.5 fL Normal 6.0-12.0 [facility] Comment on above: Performed By: #### M G, TSHX, CDP, CP #### [facility] [address] [place], [place] [phone] Customer Support Advisor: Lazarus Gan MD #### LIPR, VD25 #### [address] [address] Customer Support Advisor: Drew Craven MD Platelets (Bld) [#/Vol] 209 10*3/uL Normal 140-450 [facility] Comment on above: Performed By: #### M G, TSHX, CDP, CP #### [facility] [address] [place], [place] [phone] Customer Support Advisor: Lazarus Gan MD #### LIPMariana, VD25 #### [address] [address] Customer Support Advisor: Drew Craven MD RBC (Bld) [#/Vol] 4.18 10*6/uL Normal 4.00-5.20 [facility] Comment on above: Performed By: #### M G, TSHX, CDP, CP #### [facility] [address] [place], [place] [phone] Customer Support Advisor: Lazarus Gan MD #### LIPR, VD25 #### [place] [address] [place] [address] Customer Support Advisor: Drew Craven MD WBC (Bld) [#/Vol] 4.1 10*3/uL Normal 3.5-11.0 [facility] Comment on above: Performed By: #### M G, TSHX, CDP, CP #### [facility] [address] [place], [place] [phone] Customer Support Advisor: Lazarus Gan MD #### LIPR, VD25 #### [facility] [address] [place], [place] [phone] Customer Support Advisor: Drew Craven MD Comp Metabolic Profon 2023 Albumin [Mass/Vol] 4.1 g/dL Normal 3.5-5.2 [facility] Comment on above: Performed By: #### M G, TSHX, CDP, CP #### [facility] [address] [place], [place] [phone] Customer Support Advisor: Lazarus Gan MD #### LIPR, VD25 #### [address] [phone] Customer Support Advisor: Drew Craven MD Alkaline Phos 59 U/L Normal 35-104 [facility] Comment on above: Performed By: #### M G, TSHX, CDP, CP #### [facility] [address] [place], [place] [phone] Customer Support Advisor: Lazarus Gan MD #### LIPMariana, VD25 #### [address] [phone] Customer Support Advisor: Drew Craven MD ALT [Catalytic activity/Vol] 24 U/L Normal 5-33 [facility] Comment on above: Performed By: #### M G, TSHX, CDP, CP #### [facility] [address] [place], [place] [phone] Customer Support Advisor: Lazarus Gan MD #### LIPR, VD25 #### [address] [address] Customer Support Advisor: Drew Craven MD Anion gap [Moles/Vol] 11 mmol/L Normal 9-17 [facility] Comment on above: Performed By: #### M G, TSHX, CDP, CP #### [facility] [address] [place], [place] [phone] Customer Support Advisor: Lazarus Gan MD #### LIPR, VD25 #### [address] [phone] Customer Support Advisor: Drew Craven MD AST [Catalytic activity/Vol] 20 U/L Normal <32 [facility] Comment on above: Performed By: #### M G, TSHX, CDP, CP #### [facility] [address] [place], [place] [phone] Customer Support Advisor: Lazarus Gan MD #### LIPR, VD25 #### [address] [phone] Customer Support Advisor: Drew Craven MD Bilirubin [Mass/Vol] 0.9 mg/dL Normal 0.3-1.2 [facility] Comment on above: Performed By: #### M G, TSHX, CDP, CP #### [facility] [address] [place], [place] [phone] Customer Support Advisor: Lazarus Gan MD #### LIPR, VD25 #### [address] [phone] Customer Support Advisor: Drew Craven MD BUN/CRE Ratio 14 Normal 9-20 [facility] Comment on above: Performed By: #### M G, TSHX, CDP, CP #### [facility] [address] [place], [place] [phone] Customer Support Advisor: Lazarus Gan MD #### LIPR, VD25 #### [address] [phone] Customer Support Advisor: Drew Craven MD Calcium [Mass/Vol] 10.0 mg/dL Normal 8.6-10.4 [facility] Comment on above: Performed By: #### M G, TSHX, CDP, CP #### [facility] [address] [place] [address] Customer Support Advisor: Lazarus Gan MD #### LIPR, VD25 #### [place] [address] [place], [place] [phone] Customer Support Advisor: Drew Craven MD Chloride [Moles/Vol] 106 mmol/L Normal 98-107 [facility] Comment on above: Performed By: #### M G, TSHX, CDP, CP #### [facility] [address] [place] [address] Customer Support Advisor: Lazarus Gan MD #### LIPR, VD25 #### [address] [phone] Customer Support Advisor: Drew Craven MD CO2 [Moles/Vol] 24 mmol/L Normal 20-31 [facility] Comment on above: Performed By: #### M G, TSHX, CDP, CP #### [facility] [address] [place] [address] Customer Support Advisor: Lazarus Gan MD #### LIPMariana, VD25 #### [address] [phone] Customer Support Advisor: Drwe Craven MD Creatinine [Mass/Vol] 0.7 mg/dL Normal 0.5-0.9 [facility] Comment on above: Performed By: #### M G, TSHX, CDP, CP #### [facility] [address] [place] [address] Customer Support Advisor: Lazarus Gan MD #### LIPR, VD25 #### [address] [phone] Customer Support Advisor: Drew Craven MD GFR/1.73 sq M.predicted among non-blacks MDRD (S/P/Bld) [Vol rate/Area] mL/min/{1.73_m2} Normal >60 [facility] Comment on above: Result Comment: [...] #### M G, TSHX, CDP, CP #### [facility] [address] [place], [place] [phone] Customer Support Advisor: Lazarus Gan MD #### CLAYTON25 #### [place] [address] [place] [address] Customer Support Advisor: Drew Craven MD Glucose [Mass/Vol] 117 mg/dL High 70-99 [facility] Comment on above: Performed By: #### M Jaleesa, TSHX, CDP, CP #### [facility] [address] [place], [place] [phone] Customer Support Advisor: Lazarus Gan MD #### ROSALINDA VD25 #### [address] [phone] Customer Support Advisor: Drew Craven MD Potassium [Moles/Vol] 3.7 mmol/L Normal 3.7-5.3 [facility] Comment on above: Performed By: #### M Jaleesa, TSHX, CDP, CP #### [facility] [address] [place] [address] Customer Support Advisor: Lazarus Gan MD #### ROSALINDA VD25 #### [address] [phone] Customer Support Advisor: Drew Craven MD Protein [Mass/Vol] 7.1 g/dL Normal 6.4-8.3 [facility] Comment on above: Performed By: #### M G, TSHX, CDP, CP #### [facility] [address] [place] [address] Customer Support Advisor: Lazarus Gan MD #### LIPR, VD25 #### [facility] [address] [place] [address] Customer Support Advisor: Drew Craven MD Sodium [Moles/Vol] 141 mmol/L Normal 135-144 [facility] Comment on above: Performed By: #### M G, TSHX, CDP, CP #### [facility] [address] [place] [address] Customer Support Advisor: Lazarus Gan MD #### LIPR, VD25 #### [facility] [facility] [place] [address] Customer Support Advisor: Drew Craven MD Urea nitrogen [Mass/Vol] 10 mg/dL Normal 8-23 [facility] Comment on above: Performed By: #### M G, TSHX, CDP, CP #### [facility] Lab [address] [place] [address] Customer Support Advisor: Lazarus Gan MD #### LIPR, VD25 #### [facility] [address] [place] [address] Customer Support Advisor: Drew Craven MD Comprehensive Metabolic Pane [facility] 04-01-2024 Albumin [Mass/Vol] 4.1 g/dL 3.5 - 5.2 g/dL [facility] ALP [Catalytic activity/Vol] 59 U/L 35 - 104 U/L [facility] ALT [Catalytic activity/Vol] 24 U/L 5 - 33 U/L [facility] Anion gap [Moles/Vol] 11 mmol/L 9 - 17 mmol/L [facility] AST [Catalytic activity/Vol] 20 U/L NINF - 32 U/L [facility] Bilirubin [Mass/Vol] 0.9 mg/dL 0.3 - 1 .2 mg/dL [facility] Calcium [Mass/Vol] 10.0 mg/dL 8.6 - 10. 4 mg/dL [facility] Chloride [Moles/Vol] 106 mmol/L 98 - 10 7 mmol/L [facility] CO2 [Moles/Vol] 24 mmol/L 20 - 31 mmol/L [facility] Creatinine [Mass/Vol] 0.7 mg/dL 0.5 - 0.9 mg/dL [facility] Kimani Solis Rate - PINF [facility] Comment on above: These results [...] 117 mg/dL High 70 - 99 mg/dL [facility] Interpretation and review of laboratory results Abnormal [facility] Potassium [Moles/Vol] 3.7 mmol/L 3.7 - 5.3 mmol/L [facility] Protein [Mass/Vol] 7.1 g/dL 6.4 - 8.3 g/dL [facility] Sodium [Moles/Vol] 141 mmol/L 135 - 144 mmol/L [facility] Urea nitrogen [Mass/Vol] 10 mg/dL 8 - 23 mg/dL [facility] Urea nitrogen/Creatinine [Mass ratio] 14 mg/mg 9 - 20 [facility] EKG 12 LeadOrdered By: Unkno wn Result on 04-01-2024 Atrial Rate 64 BPM [facility] P [place] 64 degrees [facility] P-R Interval 204 ms [facility] Q-T Interval 408 ms [facility] QRS Duration 84 ms [facility] QTc Calculation (Bazett) 420 ms [facility] R [place] 34 degrees [facility] T [place] 23 degrees [facility] Ventricular Rate 64 BPM [facility] EKG 12 Leadon 04-01-2024 Normal sinus rhythm Nonspecific ST abnormality Abnormal ECG When compared with ECG of 09-APR-2023 08:33, No significant change was found [facility]IOLOGY Result, Unknown Provider - 04/01/2024 Normal sinus rhythm Nonspecific ST abnormality Abnormal ECG When compared with ECG of 09-APR-2023 08:33, No significant change was found [facility] Lipid Panelon 04-01-2024 Cholesterol [Mass/Vol] 181 mg/dL 0 - 199 mg/dL [facility] Comment on above: Cholesterol Guidelines: <200 Desirable 200-240 Borderline >240 Undesirable Cholesterol in HDL [Mass/Vol] 48 mg/dL 40 - PINF mg/dL [facility] Comment on above: HDL Guidelines: <40 Undesirable 40-59 Borderline >59 Desirable Cholesterol in LDL [Mass/Vol] 112 mg/dL High 0 - 100 mg/dL [facility] Comment on above: LDL Guidelines: <100 Desirable 100-129 Near to/above Desirable 130-159 Borderline >159 Undesirable Direct (measured) LDL and calculated LDL are not interchangeable tests. Cholesterol in VLDL [Mass/Vol] 21 mg/dL 1 - 30 mg/dL [facility] Cholesterol.total/Ch olesterol in HDL [Mass ratio] 3.8 {ratio} [facility] Interpretation and review of laboratory results Abnormal [facility] Triglyceride [Mass/Vol] 106 mg/dL NINF - 150 mg/dL [facility] Comment on above: Triglyceride Guidelines: <150 Desirable 150-199 Borderline 200-499 High >499 Very high Based on AHA Guidelines for fasting triglyceride, February 2012. Lipid Profileon 04-01-2024 Cholesterol [Mass/Vol] 181 mg/dL Normal 0-199 [facility] Comment on above: Result Comment: Cholesterol Guidelines: <200 Desirable 200-240 Borderline >240 Undesirable Performed By: #### M G, TSHX, CDP, CP ####[facility] [address] [place] [address] Lab Director: Lazarus Gna MD#### LIPMariana, VD25 ####[facility] [address] [place] [address] Lab Director: Drew Craven MD Cholesterol in HDL [Mass/Vol] 48 mg/dL Normal >40 [facility] Comment on above: Result Comment: HDL Guidelines: <40 Undesirable 40-59 Borderline >59 Desirable Performed By: #### JENNIFER Carter, BOBBI, CP ####[facility] [address] [place] [address] Lab Director: Lazarus Gan MD#### LIPR, VD25 ####[facility] [address] [place] [address] Lab Director: Drew Craven MD Cholesterol in LDL [Mass/Vol] 112 mg/dL High 0-100 [facility] Comment on above: Result Comment: LDL Guidelines: <100 Desirable 100-129 Near to/above Desirable 130-159 Borderline >159 Undesirable Direct (measured) LDL and calculated LDL are not interchangeable tests. Performed By: #### JENNIFER Carter, BOBBI, CP ####[facility] [address] [place] [address] Lab Director: Lazarus Gan MD#### LIPR, VD25 ####[facility] [place] [address] Lab Director: Drew Craven MD Cholesterol in VLDL [Mass/Vol] 21 mg/dL Normal 1-30 [facility] Comment on above: Performed By: #### Crystal Lazcano, JENNIFER, BOBBI, CP ####[facility] [address] [place] [address] Lab Director: Lazarus Gan MD#### LIPR, VD25 ####[facility] [place] [address] Lab Director: Drew Craven MD Cholesterol.total/Ch olesterol in HDL [Mass ratio] 3.8 {ratio} Normal [facility] Comment on above: Performed By: #### Crystal Lazcano, TSHEstee, BOBBI, CP ####[facility] [address] [place], [place] [id number] Lab Director: Lazarus Gan MD#### LIPMariana, VD25 ####[facility] [address] [place], [place] [address] Lab Director: Drew Craven MD Triglyceride [Mass/Vol] 106 mg/dL Normal <150 [facility] Comment on above: Result Comment: Triglyceride Guidelines: <150 Desirable 150-199 Borderline 200-499 High >499 Very high Based on AHA Guidelines for fasting triglyceride, February 2012. Performed By: #### M Jaleesa, TSHX, CDP, CP ####[facility] [address] [place], [place] [id number] Lab Director: Lazarus Gan MD#### ROSALINDA, VD25 ####[facility] [address] [place], [place] [id number] lab Director: Drew Craven MD Magnesiumon 04-01-2024 Magnesium [Mass/Vol] 2.1 mg/dL 1.6 - 2 .6 mg/dL [facility] Magnesium [Mass/Vol] 2.1 mg/dL Normal 1.6-2.6 [facility] Comment on above: Performed By: #### M Jaleesa, TSHX, CDP, CP #### [facility] Lab [address] [place], [place] [id number] Customer Support Advisor: Lazarus Gan MD #### ROSALINDA VD25 #### [facility] [address] [place], [place] [id number] Customer Support Advisor: Drew Craven MD No Panel Informationon 04-01 [facility] TSH w/reflex to FT4on 2023 Thyroid Stim. Horm. 2.64 uIU/mL Normal 0.30-5.00 [facility] Comment on above: Performed By: #### M G, TSHX, CDP, CP #### [facility] Lab [address] [place], [place] [id number] Customer Support Advisor: Lazarus Gan MD #### LIPR, VD25 #### [facility] [address] [place], [place] [id number] Customer Support Advisor: Drew Craven MD TSH with Reflexon 04-01-2024 TSH Qn 2.64 m[IU]/L [facility] Vitamin D 25 Hydroxyon 04-01 25-hydroxyvitamin D3 [Mass/Vol] 54.5 ng/mL 30.0 - 100.0 ng/mL [facility] Comment on above: Reference Range: Vitamin D status Range Deficiency <20 ng/mL Mild Deficiency 20-30 ng/mL Sufficiency 30-100 ng/mL Toxicity >100 ng/mL Vitamin D 25 OHon 04-01-2024 Vitamin D 25 [place] 54.5 ng/mL Normal 30.0-100.0 [facility] Comment on above: Result Comment: Reference Range: Vitamin D status Range Deficiency <20 ng/mL Mild Deficiency 20-30 ng/mL Sufficiency 30-100 ng/mL Toxicity >100 ng/mL Performed By: #### M G, TSHX, CDP, CP ####[facility] [address] [place] [address] Lab Director: Lazarus Gan MD#### ROSALINDA, VD25 ####[facility] [place], [place] [id number] Lab Director: Drew Craven MD XR Chest 2 Viewson Radiology Study observation (narrative) [facility] KRISSY DIGITAL SCREEN BILA TERALon 03-18-2024 [facility] KRISSY DIGITAL SCREEN BILATERAL HISTORY: Screening. Family [...] be mailed to the patient. Performing Facility: [facility] [address] [place], [place] [address] Interpreted by: Navid Armstrong Jr., MD Signed by: Navid Armstrong Jr., MD 03/18/24 Final result Normal [facility] Cult,Urineon 03-05-2024 Cult,Urine Specimen Description [...] Tobramycin 8 INTERMEDIATE Trimethoprim/Sulfa >=320 RESISTANT Resistant [facility] Comment on above: Performed By: #### U #### [facility] [address] [place] [address] Customer Support Advisor: Drew Craven MD [facility] [address] [place] [address] Customer Support Advisor: Lazarus Gan MD C Urineon 12-27-2023 Bacteria identified Cx Nom (U) Microbiology PROCEDURE: Urine Culture [R1] SOURCE: U CleanCatch BODY SITE: COLLECTED DATE/TIME: 12/24/2023 12:25 EDT RECEIVED DATE/TIME: 12/24/2023 17:44 EDT START DATE/TIME: 12/24/2023 17:44 EDT FREE TEXT SOURCE: Lashaun Rodriguez, Lashaun Martinez FINAL REPORTS Final Report [] Verified Date/Time: [...] Locations R1: This test was performed at: [facility], [address] [place] [address], [phone] , [place], [facility] Comment on above: Performed By: #### 2 [id number] #### [facility] [address] [place] [address] Ambulatory Visit Summaryon 0 12-24-2023 Ambulatory Visit [...] for choosing us for your care. [facility] Ambulatory Visit Summaryon 0 11-16-2023 Ambulatory Visit [...] Follow Up with SANDRA SAMSON, Rachel Peña, URRamiro When: Where: [address] [place] [address]- Medications What How Much When Instructions Unchanged [...] ? 8 oz (237 mL) of milk, iquyvst-halhmuiansgm-d airy milk, and calcium-fortifiedfruit juice. Calcium-fortified means [...] textured (more content not included)... Normal Ramos [facility] Urology Office/Clinic Noteon 11-16-2023 Urology Office/Clinic Note [...] on GoodRx for Effer-K 25mEq bid at [facility], it should only be $15-16. Will switch pt back to Effer-K 25mEq bid for appropriate stone prevention. Reports she tries to drink enough water, unsure of volume. CT AP w IV con 07/13/21 [facility] - no large or obstructing urinary [...] When Contact Information SANDRA SAMSON, Rachel Peña, UR [address] [place] [address]- Additional Instructions: Sched R ESWL Patient Education [...] virus vaccine, inactivated 02/16/2022 Recorded SARS-CoV-2 (COVID-19) [id number] 02/16/2022 Recorded pneumococcal 20-valent co (more content not included)... Normal [facility] Comment on above: Result Comment: [...] Tobramycin 4 SUSCEPTIBLE Trimethoprim/Sulfa >=320 RESISTANT Resistant [facility] Comment on above: Performed By: #### U #### [facility] [place] [address] Customer Support Advisor: Drew Craven MD [facility] [address] [place] [address] Customer Support Advisor: Lazarus Gan MD Cult,Urineon 10-07-2023 Cult,Urine Specimen [...] Tobramycin 2 SUSCEPTIBLE Trimethoprim/Sulfa >=320 RESISTANT Resistant [facility] Comment on above: Performed By: #### U #### [facility] [address] [place] [phone] Customer Support Advisor: Drew Craven MD [facility] [address] [place] [address] Customer Support Advisor: Lazarus Gan MD ECG 12 leadon 03-20-2023 Atrial Rate [facility] P [place] [facility] P-R Interval [facility] Q-T Interval [facility] Q-T Interval (corrected) [facility] QRS Duration [facility] QTC Calculation (Bezet) [facility] R [place] [facility] T [place] [facility] Ventricular Rate [facility] CT CCTA HEART (FIRER MARINE READ)on 03-15-2023 CT CCTA HEART (FIRER MARINE READ) Cardiac Morphology CTA Prior to Cardioversion CPT code: 76882 Patient Name: Sapna Breen Age: 72 y.o. Requesting Physician: Interpreting Mathematical Physicist:: Kaity Kinney M.D. Primary Care Physician: Medardo [...] Image Quality: Good. No significant artifacts. Scanner: DailyDigital DLP: 247 mGy Radiation dose reduction was [...] SunMar 15, 2023 9:43:09 AM EDT Normal [facility] Basic metabolic 2000 panelon 06-19-2023 Anion gap [Moles/Vol] 11 mmol/L 10 - 20 mmol/L [facility] Calcium [Mass/Vol] 10.4 mg/dL High 8.4 - 10. 2 mg/dL [facility] Chloride [Moles/Vol] 110 mmol/L High 98 - 10 8 mmol/L [facility] Creatinine [Mass/Vol] 0.91 mg/dL 0.60 - 1.20 mg/dL [facility] GFR/1.73 sq M.predicted CKD-EPI (S/P/Bld) [Vol rate/Area] 67 - PINF [facility] Comment on above: Estimated GFR was ca lculated using the 2020 CKD-EPI creatinine equation. Glucose [Mass/Vol] 136 mg/dL High 65 - 99 mg/dL [facility] HCO3 [Moles/Vol] 22 mmol/L 21 - 32 mmol/L [facility] Interpretation and review of laboratory results Abnormal [facility] Potassium [Moles/Vol] 3.4 mmol/L Low 3.5 - 5.1 mmol/L [facility] Sodium [Moles/Vol] 140 mmol/L 135 - 145 mmol/L [facility] Urea nitrogen [Mass/Vol] 14 mg/dL 8 - 25 mg/dL [facility] Urea nitrogen/Creatinine [Mass ratio] 15.4 mg/mg 10.0 - 20.0 [facility] has implemented the eGFR calculation approach that does not have a coefficient for race that conforms to the NKF-ASN Task Force Recommendations. [facility] CT PULMONARY VEIN WITH RECON STRUCTIONS 3Don [...] contrast. CT pulmonary vein protocol was utilized. Mathematical Physicist will interpret the pulmonary vein portion of [...] for dedicated Watchman device and cardiac evaluation. /[facility] Workstation ID: [id number] Dictated by: KAYE VAZQUEZ on SunMar 15, 2023 9:14:22 AM EDT Transcribed by: RAHEL RUSS on SunMar 15, 2023 9:20:35 AM EDT Finalized by: KAYE VAZQUEZ on [facility] Mar 15, 2023 4:56:13 PM EDT Normal [facility] Comment on above: Order Comment: Injur y/Trauma or Illness?:Illness/Other How long have you had these symptoms (acute/chronic)?:Acute Reason for exam?:6 month f/u LAAO, supplemental read Type of Exam?:Subsequent/Follow-up Additional signs and symptoms?: ECG 12 leadon 11-06-2022 Atrial Rate [facility] P [place] [facility] P-R Interval [facility] Q-T Interval [facility] Q-T Interval (corrected) [facility] QRS Duration [facility] QTC Calculation (Bezet) [facility] R [place] [facility] T [place] [facility] Ventricular Rate [facility] Basic metabolic 2000 panelon 09-15-2022 Anion gap [Moles/Vol] 10 mmol/L 10 - 20 mmol/L [facility] Calcium [Mass/Vol] 9.6 mg/dL 8.4 - 10. 2 mg/dL [facility] Chloride [Moles/Vol] 113 mmol/L High 98 - 10 8 mmol/L [facility] Creatinine [Mass/Vol] 0.78 mg/dL 0.60 - 1.20 mg/dL [facility] GFR/1.73 sq M.predicted CKD-EPI (S/P/Bld) [Vol rate/Area] 80 - PINF [facility] Comment on above: Estimated GFR was ca lculated using the 2020 CKD-EPI creatinine equation. Glucose [Mass/Vol] 167 mg/dL High 65 - 99 mg/dL [facility] HCO3 [Moles/Vol] 24 mmol/L 21 - 32 mmol/L [facility] Interpretation and review of laboratory results Abnormal [facility] Potassium [Moles/Vol] 4.2 mmol/L 3.5 - 5.1 mmol/L [facility] Sodium [Moles/Vol] 143 mmol/L 135 - 145 mmol/L [facility] Urea nitrogen [Mass/Vol] 16 mg/dL 8 - 25 mg/dL [facility] Urea nitrogen/Creatinine [Mass ratio] 20.5 mg/mg High 10.0 - 20.0 [facility] has implemented the eGFR calculation approach that does not have a coefficient for race that conforms to the NKF-ASN Task Force Recommendations. [facility] CBC panel Auto (Bld)on 09-15 Erythrocyte distribution width (RBC) [Entitic vol] 14.4 % 11.6 - 14.8 % [facility] Hematocrit (Bld) [Volume fraction] 36.9 % 36.0 - 46.0 % [facility] Hemoglobin (Bld) [Mass/Vol] 11.8 g/dL Low 12.0 - 16.0 g/dL [facility] Interpretation and review of laboratory results Abnormal [facility] MCH (RBC) [Entitic mass] 31.1 pg 26.0 - 34.0 pg [facility] MCHC (RBC) [Mass/Vol] 32.0 g/dL 31.0 - 37.0 g/dL [facility] MCV (RBC) [Entitic vol] 97.1 fL 80.0 - 100.0 fL [facility] Nucleated RBC (Bld) [#/Vol] 0.00 10*3/uL [facility] Nucleated RBC/100 WBC (Bld) [Ratio] 0.0 % [facility] Platelet mean volume (Bld) [Entitic vol] 10.4 fL 9.4 - 12.4 fL [facility] Platelets (Bld) [#/Vol] 199 10*3/uL [facility] RBC (Bld) [#/Vol] 3.80 10*6/uL Low [facility] WBC (Bld) [#/Vol] 8.22 10*3/uL [facility] ECHOCARDIOGRAM LIMITEDon ECHOCARDIOGRAM LIMITED Patient Info Name: SAPNA BREEN Age: 71 years : 1950 Gender: Female Ht: 163 cm Wt: 83 kg BSA: 1.97 m2 HR: 57 bpm BP: 111 / 68 mmHg Technical Quality: Good Exam Date: 09/15/2022 6:15 AM Patient Status: Inpatient Shingle Trimmer: Araseli Blanton RCDS Exam Type: ECHOCARDIOGRAM LIMITED Study Info Indications I31.3 - Pericardial effusion (noninflammatory) Referring Physician: JUNIOR Ledezma; [id number] BMI: 31.41 kg/m2 Summary 1. A Limited [...] Kaity Kinney MD on 09/15/2022 08:53 AM [facility] Echocardiogram limitedon Patient Info Name: SAPNA BREEN Age: 71 years : 1950 Gender: Female Ht: 163 cm Wt: 83 kg BSA: 1.97 m2 HR: 57 bpm BP: 111 / 68 mmHg Technical Quality: Good Exam Date: 09/15/2022 6:15 AM Patient Status: Inpatient Shingle Trimmer: Araseli Blanton RCDS Exam Type: ECHOCARDIOGRAM LIMITED Study Info Indications I31.3 - Pericardial effusion (noninflammatory) Referring Physician: JUNIOR Ledezma; [id number] BMI: 31.41 kg/m2 Summary 1. A Limited [...] Kaity Kinney MD on 09/15/2022 08:53 AM [facility] Atul, Kaity goodrich MD - 09/15/2022 Patient Info Name: SAPNA BREEN Age: 71 years : 1950 Gender: Female Ht: 163 cm Wt: 83 kg BSA: 1.97 m2 HR: 57 bpm BP: 111 / 68 mmHg Technical Quality: Good Exam Date: 09/15/2022 6:15 AM Patient Status: Inpatient Shingle Trimmer: Araseli Blanton RCDS Exam Type: ECHOCARDIOGRAM LIMITED Study Info Indications I31.3 - Pericardial effusion (noninflammatory) Referring Physician: JUNIOR Ledezma; [id number] BMI: 31.41 kg/m2 Summary 1. A Limited [...] Kaity Kinney MD on 09/15/2022 08:53 AM [facility] Radiology Study observation (narrative) [facility] Echocardiogram limitedOrdere d By: Kaity Kinney on 09-15-2022 [facility] Work Phone: XR CHEST AP/PA AND [...] SunSep 15, 2022 7:56:13 AM EDT Normal [facility] Comment on above: Order Comment: Injur y/Trauma [...] Stable contours. Bones: No acute bony abnormality. Octavia Rodriguez MD - 09/15/2022 EXAMINATION: XR CHEST AP/PA [...] see above for discussion. Workstation ID: [id number] [facility] Radiology Study observation (narrative) [facility] XR Chest AP/PA and LATOrdere d By: Octavia Molina on 09-15-2022 [facility] Work Phone: ACT Coag (Bld)on 09-14-2022 Kaolin activated time Qn (Bld) 275 seconds [facility] Blood type and Indirect anti body screen panel (Bld)on 09-14-2022 ABO and Rh group Nom (Bld) Blood group O Rh(D) positive [facility] Blood group antibody screen Ql Negative [facility] Specimen Expires 09/17/2022 23:59 EST [facility] Cardiac Catheterizationon [facility] Radiology Study observation (narrative) [facility] ECHO DELMAR INTRAOP TRANSCATHET ER PROCEDUREon 09-14-2022 ECHO DELMAR INTRAOP TRANSCATHETER PROCEDURE Patient Info Name: SAPNA BREEN Age: 71 years : 1950 Gender: Female Ht: 163 cm Wt: 83 kg BSA: 1.97 m2 HR: 80 bpm BP: 172 / 90 mmHg Heart Rhythm: Atrial Fibrillation Technical Quality: Good Exam Date: 09/14/2022 11:18 AM Patient Status: Outpatient Shingle Trimmer: Merry Ramirez RCDS Exam Type: ECHO DELMAR INTRAOP TRANSCATHETER PROCEDURE Study Info Indications I48.91 - Unspecified atrial fibrillation Referring Physician: [id number] Roberts; [id number] BMI: 31.41 kg/m2 Summary 1. A complete [...] an iatrogenic atrial septal intra-atrial shunt with uyvf-fu-rnvfi flow on color Doppler. 3. The left [...] Antonio MD on 09/14/2022 03:22 PM Normal [facility] Echocardiogram intraop DELMAR g kennedy 09-14-2022 Patient Info Name: SAPNA BREEN Age: 71 years : 1950 Gender: Female Ht: 163 cm Wt: 83 kg BSA: 1.97 m2 HR: 80 bpm BP: 172 / 90 mmHg Heart Rhythm: Atrial Fibrillation Technical Quality: Good Exam Date: 09/14/2022 11:18 AM Patient Status: Outpatient Shingle Trimmer: Merry Ramirez RCDS Exam Type: ECHO DELMAR INTRAOP TRANSCATHETER PROCEDURE Study Info Indications I48.91 - Unspecified atrial fibrillation Referring Physician: ADELE Syed; [id number] BMI: 31.41 kg/m2 Summary 1. A complete [...] an iatrogenic atrial septal intra-atrial shunt with hiwe-td-[id number] flow on color Doppler. 3. The left [...] Michelle Antonio MD on 09/14/2022 03:22 PM [facility] Michelle Antonio M D - 09/14/2022 Patient Info Name: SAPNA BREEN Age: 71 years : 1950 Gender: Female Ht: 163 cm Wt: 83 kg BSA: 1.97 m2 HR: 80 bpm BP: 172 / 90 mmHg Heart Rhythm: Atrial Fibrillation Technical Quality: Good Exam Date: 09/14/2022 11:18 AM Patient Status: Outpatient Shingle Trimmer: Merry Ramirez RCDS Exam Type: ECHO DELMAR INTRAOP TRANSCATHETER PROCEDURE Study Info Indications I48.91 - Unspecified atrial fibrillation Referring Physician: ADELE Syed; [id number] BMI: 31.41 kg/m2 Summary 1. A complete [...] an iatrogenic atrial septal intra-atrial shunt with yodh-su-faawv flow on color Doppler. 3. The left [...] Michelle Antonio MD on 09/14/2022 03:22 PM [facility] Radiology Study observation (narrative) [facility] Echocardiogram intraop DELMAR g uidanceOrdered By: Michelle Antonio on 09-14-2022 [facility] Work Phone: INR Coag (PPP) [Relative lana e]Ordered By: Fuentes Kovacs on 09-14-2022 Interpretation and review of laboratory results Normal [facility] PT Coag (PPP) [Time] 13.7 s [facility] During the induction phase of oral anticoagulation, the INR may not reflect the anticoagulation status of the patient. Therapeutic ranges for INR's are: Most clinical situations: INR 2.0-3.0 Mechanical Prosthetic Valve: INR 2.5-3.5 Critical: INR >5.0 [facility] - Blood bankon ABO and Rh group Nom (Bld) 5100 [facility] ABO and Rh group Nom (Bld) Blood group O Rh(D) positive [facility] No Panel Informationon 09-14 Cross Match Compatible [facility] [facility] Product ID Red Blood Cells [facility] Status Info Ready for issue [facility] PT/INROrdered By: Fuentes zuñiga on 09-14-2022 INR Coag (PPP) [Relative time] 1.1 {INR} 0.8 - 1.1 [facility] Prepare RBC: 2 Unitson 09-14 Product Code [id number] [facility] Product Code [id number] [facility] Unit Number [id number] [facility] Unit Number [id number] [facility] ECG 12 leadon 08-22-2022 Atrial Rate [facility] P [place] [facility] P-R Interval [facility] Q-T Interval [facility] Q-T Interval (corrected) [facility] QRS Duration [facility] QTC Calculation (Bezet) [facility] R [place] [facility] T [place] [facility] Ventricular Rate [facility] th [facility] Electrolyte Panelon 10-11-19 Anion gap [Moles/Vol] 10 mmol/L 9 - 17 mmol/L [facility] Chloride [Moles/Vol] 110 mmol/L High 98 - 10 7 mmol/L [facility] CO2 [Moles/Vol] 23 mmol/L 20 - 31 mmol/L [facility] Interpretation and review of laboratory results Abnormal [facility] Potassium [Moles/Vol] 4.0 mmol/L 3.7 - 5.3 mmol/L [facility] Sodium [Moles/Vol] 143 mmol/L 135 - 144 mmol/L [facility] FISHon 07-20-2021 BLADDER CANCER FISH FINDINGS Comment [facility] Comment on above: Result Comment: Nega tive UroVysion Result Fluorescence in situ hybridization (FISH) of cells recovered from urine was performed using the [employer] UroVysion Kit. A minimum of twenty-five cells was examined, and an abnormal signal pattern was not detected, indicating a NEGATIVE result. The performance characteristics of this test have been validated by [employer]. A positive result is the detection of four or more cells with greater than two signals for at least two chromosomes (3, and/or 7, and/or 17) and/or twelve or more cells with no signal for chromosome 9. Probes: 3cen(D3Z1), 7cen(D7Z1), 9p21(p16), 17cen(D17Z1) Performed By: #### F ISHUV #### [facility] [address] [place] [id number] [address] Red Longo CLINICAL DATA Comment Normal [facility] Comment on above: Result Comment: No c linical data specified Performed By: #### F ISHUV #### [facility] [address] [place] [address] Dr. Red Longo CPT CODES Comment Normal [facility] Comment on above: Result Comment: [id number] Performed By: #### F ISHUV #### [facility] [address] [place] [address] Dr. Red Longo ELECTRONICALLY SIGNED Comment Normal [facility] Comment on above: Result Comment: Josiah Hairston MD. Performed By: #### F ISHUV #### [facility] [address] [place] [address] Dr. Red Longo SPECIMEN DESCRIPTION Comment [facility] Comment on above: Result Comment: Rece ived is 60ml of yellow, cloudy, preserved urine. Performed By: #### F ISHUV #### [facility] [address] [place] [address] Dr. Red Longo Specimen type Nom (Spec) Comment Normal [facility] Comment on above: Result Comment: Unsp ecified Collection Method Performed By: #### F ISHUV #### [facility] [address] [place] [address] Dr. Red Longo BUN & Creatinineon 2 Creatinine [Mass/Vol] 0.73 mg/dL 0.50 - 0.90 mg/dL [employer] GFR >60 >60 mL/min [facility] [employer] GFR Non- >60 >60 mL/min [facility] [employer] GFR/1.73 sq M.predicted MDRD (S/P/Bld) [Vol rate/Area] [facility] Comment on above: Average GFR for 70 o r more years old: 75 mL/min/1.73sq m Chronic Kidney Disease: <60 mL/min/1.73sq m Kidney failure: <15 mL/min/1.73sq m eGFR calculated using average adult body mass. Additional eGFR calculator available at: http://www.Wanderfly.Booster/multiple_crcl_2012.htm Urea nitrogen (BldV) [Mass/Vol] 14 mg/dL 8 - 23 mg/dL [facility] [employer] Electrolyte Panelon 07-13-19 22 Anion gap [Moles/Vol] 12 mmol/L 9 - 17 mmol/L [facility] [employer] Chloride [Moles/Vol] 105 mmol/L 98 - 10 7 mmol/L [facility] CO2 [Moles/Vol] 23 mmol/L 20 - 31 mmol/L [facility] Potassium [Moles/Vol] 3.8 mmol/L 3.7 - 5.3 mmol/L [facility] Sodium [Moles/Vol] 140 mmol/L 135 - 144 mmol/L [facility] No Panel Informationon 07-13 [facility] CYTOLOGYon 07-11-2021 SENT TO REF LAB 07/12/21 Normal [facility] Comment on above: Performed By: #### C YTO #### [facility] [address] [address] [address] Red Longo XR KUB 1 VIEWon [...] ANDREW POLANCO Date: 2021-04-04 17:07 Normal [facility] KRISSY DIGITAL SCREEN BILA TERALOrdered By: Medardo Robles on 03-03-2021 BI-RADS 1 - Negative , no evidence of malignancy. Normal interval followup in 12 months. OVERALL ASSESSMENT- NEGATIVE A letter of notification will be sent to the patient regarding the results. disco volante Phone: HISTORY: Screening. Family history of breast carcinoma. TECHNIQUE: Bilateral digital screening mammogram with CAD. 2-D and 3-D tomography. FINDINGS: Two views of each breast show scattered areas of fibroglandular density. No change from prior studies the most recent of 01/14/2020. Suspicious calcifications: None. Suspicious mass: None. (If skin markers were applied, circles represent skin lesions and linear markers represent scars.) disco volante Phone: disco volante Phone: CBC Auto Differentialon - Basophils (Bld) [#/Vol] 0.00 10*3/uL [place] Basophils/100 WBC (Bld) 1 % 0 - 2 % [place] Differential Type YES [place] Eosinophils (Bld) [#/Vol] 0.10 10*3/uL [place] Eosinophils/100 WBC (Bld) 2 % 0 - 5 % [place] Erythrocyte distribution width (RBC) [Ratio] 13.5 % 12.1 - 15.2 % [place] Hematocrit (Bld) [Volume fraction] 39.8 % 36 - 46 % [place] Hemoglobin (Bld) [Mass/Vol] 13.7 g/dL 12 - 16 g/dL [place] Interpretation and review of laboratory results Abnormal [place] Lymphocytes (Bld) [#/Vol] 1.60 10*3/uL [place] Lymphocytes/100 WBC (Bld) 37 % 15 - 40 % [place] MCH (RBC) [Entitic mass] 31.9 pg 26 - 34 pg [place] MCHC (RBC) [Mass/Vol] 34.4 g/dL 31 - 37 g/dL [place] MCV (RBC) [Entitic vol] 92.7 fL 80 - 100 fL [place] Monocytes (Bld) [#/Vol] 0.50 10*3/uL [place] Monocytes/100 WBC (Bld) 11 % High 4 - 8 % [place] Platelet mean volume (Bld) [Entitic vol] NOT REPORTED 6 - 12 fL [place] Platelets (Bld) [#/Vol] 206 10*3/uL [place] Platelets (Bld) [#/Vol] NOT REPORTED [place] RBC (Bld) [#/Vol] 4.30 10*6/uL 4 - 5.2 m/uL [place] RBC morphology finding Nom (Bld) NOT REPORTED [place] Segmented neutrophils/100 WBC (Bld) 49 % 47 - 75 % [place] Segs Absolute 2.20 Low [place] WBC (Bld) [#/Vol] 4.4 10*3/uL [place] WBC (Bld) [#/Vol] NOT REPORTED per 100 WBC [place] WBC Morphology NOT REPORTED [place] Comprehensive Metabolic Pane johnathon 04-13-2020 Albumin [Mass/Vol] 4.2 g/dL 3.5 - 5.2 g/dL [place] Albumin/Globulin [Mass ratio] NOT REPORTED [place] ALP [Catalytic activity/Vol] 60 U/L 35 - 104 U/L [place] ALT [Catalytic activity/Vol] 44 U/L High 5 - 33 U/L [place] Anion gap [Moles/Vol] 10 mmol/L 9 - 17 mmol/L [place] AST [Catalytic activity/Vol] 30 U/L <32 [place] Bilirubin Ql (U) 0.73 mg/dL 0.3 - 1.2 mg/dL [place] Bun/Cre Ratio 25 High [place] Calcium [Mass/Vol] 10.9 mg/dL High 8.6 - 10. 4 mg/dL [place] Chloride [Moles/Vol] 108 mmol/L High 98 - 10 7 mmol/L [place] CO2 [Moles/Vol] 20 mmol/L 20 - 31 mmol/L [place] Creatinine [Mass/Vol] 0.84 mg/dL 0.5 - 0.9 mg/dL [place] GFR >60 >60 mL/min [place] GFR Non- >60 >60 mL/min [place] GFR/1.73 sq M predicted among non-blacks MDRD (S/P/Bld) [Vol rate/Area] [place] Comment on above: Average GFR for 70 o r more years old: 75 mL/min/1.73sq m Chronic Kidney Disease: <60 mL/min/1.73sq m Kidney failure: <15 mL/min/1.73sq m eGFR calculated using average adult body mass. Additional eGFR calculator available at: http://www.Wongnai/multiple_crcl_2012.htm GFR/1.73 sq M predicted among non-blacks MDRD (S/P/Bld) [Vol rate/Area] NOT REPORTED [place] Glucose [Mass/Vol] 117 mg/dL High 70 - 99 mg/dL [place] Potassium [Moles/Vol] 3.7 mmol/L 3.7 - 5.3 mmol/L [place] Protein [Mass/Vol] 7.4 g/dL 6.4 - 8.3 g/dL [place] Sodium [Moles/Vol] 138 mmol/L 135 - 144 mmol/L [place] Urea nitrogen [Mass/Vol] 21 mg/dL 8 - 23 mg/dL [place] Hemoglobin A1Con 04-13-2020 Glucose [Mass/Vol] 117 mg/dL [place] Comment on above: The ADA and AACC rec ommend providing the estimated average glucose result to permit better patient understanding of their HBA1c result. HbA1c (Bld) [Mass fraction] 5.7 % 4 - 6 % [place] Lipid Panelon 04-13-2020 Cholesterol [Mass/Vol] 192 mg/dL <200 [place] Comment on above: Cholesterol Guidelines: <200 Desirable 200-240 Borderline >240 Undesirable Cholesterol in HDL [Mass/Vol] 48 mg/dL >40 [place] Comment on above: HDL Guidelines: <40 Undesirable 40-59 Borderline >59 Desirable Cholesterol in LDL [Mass/Vol] 125 mg/dL 0 - 130 mg/dL [place] Comment on above: LDL Guidelines: <100 Desirable 100-129 Near to/above Desirable 130-159 Borderline >159 Undesirable Direct (measured) LDL and calculated LDL are not interchangeable tests. Cholesterol in VLDL [Mass/Vol] NOT REPORTED 1 - 30 mg/dL [place] Cholesterol.total/Ch olesterol in HDL [Mass ratio] 4 {ratio} <5 [place] Triglyceride [Mass/Vol] 97 mg/dL <150 [place] Comment on above: Triglyceride Guidelines: <150 Desirable 150-199 Borderline 200-499 High >499 Very high Based on AHA Guidelines for fasting triglyceride, February 2012. Magnesiumon 04-13-2020 Magnesium [Mass/Vol] 2.2 mg/dL 1.6 - 2 .6 mg/dL [place] Otheron 04-13-2020 Interpretation and review of laboratory results Abnormal [place] Immature granulocytes (Bld) [#/Vol] NOT REPORTED 0 % [place] Patient Fasting?on 0 Patient Fasting? yes [place] T4, Freeon 04-13-2020 Thyroxine, Free 1.05 ng/dL 0.93 - 1.7 ng/dL [place] TSH with Reflexon 04-13-2020 TSH Qn 5.86 m[IU]/L [place] Vitamin D 25 Hydroxyon 04-13 Vit D, 25-Hydroxy 58 ng/mL 30 - 100 ng/mL [place] Comment on above: Reference Range: Vitamin D status Range Deficiency <20 ng/mL Mild Deficiency 20-30 ng/mL Sufficiency 30-100 ng/mL Toxicity >100 ng/mL XR CHEST (2 VW)on 04-13-2020 No acute heart or gurjit ng disease identified. [place] Frontal and lateral chest Clinical: Atrial fibrillation. COMPARISON: 04/21/2019. Heart and vascularity are unremarkable. Lungs are expanded and free of focal infiltrates. Mild spondylosis of the spine is noted. There is a slight to mild scoliotic deformity of the thoracolumbar spine with convexity to the right. [place] [employer] Incoming Radiant Results From [employer] - 04/13/2020 12:15 PM EST Frontal and lateral chest Clinical: Atrial fibrillation. COMPARISON: 04/21/2019. Heart and vascularity are unremarkable. Lungs are expanded and free of focal infiltrates. Mild spondylosis of the spine is noted. There is a slight to mild scoliotic deformity of the thoracolumbar spine with convexity to the right. IMPRESSION: No acute heart or lung disease identified. [place] Uric AcidOrdered By: Medardo haile on 06-16-2019 Interpretation and review of laboratory results Abnormal disc[employer] volante Phone: Urate [Mass/Vol] 9.9 mg/dL High 2.4 - 5.7 mg/dL disco volante Phone: CBC Auto Differentialon 12-0 Basophils (Bld) [#/Vol] 0.00 10*3/uL [place] Basophils/100 WBC (Bld) 0 % 0 - 2 % [place] Differential Type YES [place] Eosinophils (Bld) [#/Vol] 0.10 10*3/uL [place] Eosinophils/100 WBC (Bld) 1 % 0 - 5 % [place] Erythrocyte distribution width (RBC) [Ratio] 14.0 % 12.1 - 15.2 % [place] Hematocrit (Bld) [Volume fraction] 39.4 % 36 - 46 % [place] Hemoglobin (Bld) [Mass/Vol] 13.4 g/dL 12 - 16 g/dL [place] Lymphocytes (Bld) [#/Vol] 1.60 10*3/uL [place] Lymphocytes/100 WBC (Bld) 30 % 15 - 40 % [place] MCH (RBC) [Entitic mass] 31.8 pg 26 - 34 pg [place] MCHC (RBC) [Mass/Vol] 33.9 g/dL 31 - 37 g/dL [place] MCV (RBC) [Entitic vol] 93.7 fL 80 - 100 fL [place] Monocytes (Bld) [#/Vol] 0.40 10*3/uL [place] Monocytes/100 WBC (Bld) 8 % 4 - 8 % [place] Platelet mean volume (Bld) [Entitic vol] NOT REPORTED 6 - 12 fL [place] Platelets (Bld) [#/Vol] NOT REPORTED [place] Platelets (Bld) [#/Vol] 228 10*3/uL [place] RBC (Bld) [#/Vol] 4.21 10*6/uL 4 - 5.2 m/uL [place] RBC morphology finding Nom (Bld) NOT REPORTED [place] Segmented neutrophils/100 WBC (Bld) 61 % 47 - 75 % [place] Segs Absolute 3.30 [place] WBC (Bld) [#/Vol] 5.4 10*3/uL [place] WBC (Bld) [#/Vol] NOT REPORTED per 100 WBC [place] WBC Morphology NOT REPORTED [place] Comprehensive Metabolic Pane johnathon 04-21-2019 Albumin [Mass/Vol] 4.4 g/dL 3.5 - 5.2 g/dL [place] Albumin/Globulin [Mass ratio] NOT REPORTED [place] ALP [Catalytic activity/Vol] 63 U/L 35 - 104 U/L [place] ALT [Catalytic activity/Vol] 54 U/L High 5 - 33 U/L [place] Anion gap [Moles/Vol] 14 mmol/L 9 - 17 mmol/L [place] AST [Catalytic activity/Vol] 31 U/L <32 [place] Bilirubin Ql (U) 0.77 mg/dL 0.3 - 1.2 mg/dL [place] Bun/Cre Ratio 19 [place] Calcium [Mass/Vol] 10.8 mg/dL High 8.6 - 10. 4 mg/dL [place] Chloride [Moles/Vol] 104 mmol/L 98 - 10 7 mmol/L [place] CO2 [Moles/Vol] 22 mmol/L 20 - 31 mmol/L [place] Creatinine [Mass/Vol] 0.72 mg/dL 0.5 - 0.9 mg/dL [place] GFR >60 >60 mL/min [place] GFR Non- >60 >60 mL/min [place] GFR/1.73 sq M predicted among non-blacks MDRD (S/P/Bld) [Vol rate/Area] NOT REPORTED [place] GFR/1.73 sq M predicted among non-blacks MDRD (S/P/Bld) [Vol rate/Area] [place] Comment on above: Average GFR for 70 o r more years old: 75 mL/min/1.73sq m Chronic Kidney Disease: <60 mL/min/1.73sq m Kidney failure: <15 mL/min/1.73sq m eGFR calculated using average adult body mass. Additional eGFR calculator available at: http://www.Wongnai/multiple_crcl_2012.htm Glucose [Mass/Vol] 122 mg/dL High 70 - 99 mg/dL [place] Interpretation and review of laboratory results Abnormal [place] Potassium [Moles/Vol] 3.6 mmol/L Low 3.7 - 5.3 mmol/L [place] Protein [Mass/Vol] 7.7 g/dL 6.4 - 8.3 g/dL [place] Sodium [Moles/Vol] 140 mmol/L 135 - 144 mmol/L [place] Urea nitrogen [Mass/Vol] 14 mg/dL 8 - 23 mg/dL [place] Lipid Panelon 04-21-2019 Cholesterol [Mass/Vol] 184 mg/dL <200 [place] Comment on above: Cholesterol Guidelines: <200 Desirable 200-240 Borderline >240 Undesirable Cholesterol in HDL [Mass/Vol] 52 mg/dL >40 [place] Comment on above: HDL Guidelines: <40 Undesirable 40-59 Borderline >59 Desirable Cholesterol in LDL [Mass/Vol] 111 mg/dL 0 - 130 mg/dL [place] Comment on above: LDL Guidelines: <100 Desirable 100-129 Near to/above Desirable 130-159 Borderline >159 Undesirable Direct (measured) LDL and calculated LDL are not interchangeable tests. Cholesterol in VLDL [Mass/Vol] NOT REPORTED 1 - 30 mg/dL [place] Cholesterol.total/Ch olesterol in HDL [Mass ratio] 3.5 {ratio} <5 [place] Triglyceride [Mass/Vol] 107 mg/dL <150 [place] Comment on above: Triglyceride Guidelines: <150 Desirable 150-199 Borderline 200-499 High >499 Very high Based on AHA Guidelines for fasting triglyceride, February 2012. Magnesiumon 04-21-2019 Magnesium [Mass/Vol] 2.2 mg/dL 1.6 - 2 .6 mg/dL [facility] [place] Otheron 04-21-2019 Immature granulocytes (Bld) [#/Vol] NOT REPORTED [place] Patient Fasting?on 9 [facility] F[facility]? [facility] [place] TSH with Reflexon 04-21-2019 TSH Qn 3.29 m[IU]/L [place] Vitamin D 25 Hydroxyon 04-21 Vit D, 25-Hydroxy 51.6 ng/mL 30 - 100 ng/mL [place] Comment on above: Reference Range: Vitamin D status Range Deficiency <20 ng/mL Mild Deficiency 20-30 ng/mL Sufficiency 30-100 ng/mL Toxicity >100 ng/mL XR CHEST STANDARD (2 VW)on 06-22-2018 Negative chest. Sierra Brower [place] EXAM: XR CHEST (2 VW ) HISTORY: Reason for exam:->Afib COMPARISON: Chest 03/29/2018. TECHNIQUE: 2 views chest FINDINGS: Heart size normal. Lungs clear. Bony thorax and upper abdomen normal. [place] [employer], [employer] Incoming Radiant Results From [employer] - 04/21/2019 1:22 PM EST EXAM: XR CHEST (2 VW) HISTORY: Reason for exam:->Afib COMPARISON: Chest 03/29/2018. TECHNIQUE: 2 views chest FINDINGS: Heart size normal. Lungs clear. Bony thorax and upper abdomen normal. IMPRESSION: Negative chest. [place] Progress Noteon 04-05-2018 HIM IP Note OR Software Client Architect Normal [facility] Progress Noteon 03-19-2018 HIM IP Note OR Software Client Architect Normal [facility] Progress Noteon 02-15-2018 HIM IP Note OR Software Client Architect Normal [facility] Progress Noteon 09-17-2017 HIM IP Note OR Software Client Architect Normal [facility] Vital Signs Date Time Vital Sign Value Performing Clinician Facility 07-29-2024 10:13-0400 Body height 162.6 cm Ximena Archuleta CNP Work Phone: [facility] 07-29-2024 10:13-0400 Body mass index (BMI) [Ratio] 31.41 kg/m2 Ximena Archuleta CNP Work Phone: [facility] 07-29-2024 10:13-0400 Body weight 83.01 kg Ximena Archuleta HEALTH INFORMATION ADMINISTRATOR Work Phone: [facility] 07-29-2024 10:13-0400 Diastolic blood pressure 86 mm[Hg] Ximena Archuleta HEALTH INFORMATION ADMINISTRATOR Work Phone: [facility] 07-29-2024 10:13-0400 Heart rate 57 /min Ximena Archuleta CNP Work Phone: [facility] 07-29-2024 10:13-0400 SaO2% (BldA) [Mass fraction] 96 % Ximena Archuleta HEALTH INFORMATION ADMINISTRATOR Work Phone: [facility] 07-29-2024 10:13-0400 Systolic blood pressure 145 mm[Hg] Ximena Archuleta CNP Work Phone: [facility] 06-23-2024 09:50-0500 Diastolic blood pressure 73 mm[Hg] ANAI GAITAN [facility] 06-23-2024 09:50-0500 Heart rate 58 /min ANAI DOREEN [facility] 06-23-2024 09:50-0500 Respiratory rate 16 /min ANAI DOREEN [facility] 06-23-2024 09:50-0500 Systolic blood pressure 125 mm[Hg] ANAI DOREEN [facility] 11-16-2023 10:12-0400 Blood Pressure Location Rachel FLORES [facility] 11-16-2023 10:12-0400 Diastolic blood pressure 83 mm[Hg] Rachel FLORES [facility] 11-16-2023 10:12-0400 Heart rate 80 /min Rachel FLORES [facility] 11-16-2023 10:12-0400 Respiratory rate 16 /min Rachel FLORES [facility] 11-16-2023 10:12-0400 Systolic blood pressure 138 mm[Hg] Rachel FLORES [facility] 09-07-2023 08:33-0400 Body height 162.6 cm Ximena Scott HEALTH INFORMATION ADMINISTRATOR Work Phone: [facility] 09-07-2023 08:33-0400 Body mass index (BMI) [Ratio] 31.76 kg/m2 Ximena Scott HEALTH INFORMATION ADMINISTRATOR Work Phone: [facility] 09-07-2023 08:33-0400 Body weight 83.92 kg Ximena Archuleta HEALTH INFORMATION ADMINISTRATOR Work Phone: [facility] 09-07-2023 08:33-0400 Diastolic blood pressure 73 mm[Hg] Ximenalillie Archuleta HEALTH INFORMATION ADMINISTRATOR Work Phone: [facility] 09-07-2023 08:33-0400 Heart rate 55 /min Ximena Archuleta HEALTH INFORMATION ADMINISTRATOR Work Phone: [facility] 09-07-2023 08:33-0400 SaO2% (BldA) [Mass fraction] 98 % Ximenalillie Archuleta HEALTH INFORMATION ADMINISTRATOR Work Phone: [facility] 09-07-2023 08:33-0400 Systolic blood pressure 124 mm[Hg] Ximenalillie Archuleta HEALTH INFORMATION ADMINISTRATOR Work Phone: [facility] 03-20-2023 09:18-0400 Diastolic blood pressure 81 mm[Hg] Ximena Archuleta HEALTH INFORMATION ADMINISTRATOR Work Phone: [facility] 03-20-2023 09:18-0400 Systolic blood pressure 150 mm[Hg] Ximena Archuleta CNP Work Phone: [facility] 03-20-2023 09:130400 Body height 162.6 cm Ximena Archuleta CNP Work Phone: [facility] 03-20-2023 09:130400 Body mass index (BMI) [Ratio] 31.93 kg/m2 Ximena Archuleta HEALTH INFORMATION ADMINISTRATOR Work Phone: [facility] 03-20-2023 09:130400 Body weight 84.37 kg Ximena Archuleta HEALTH INFORMATION ADMINISTRATOR Work Phone: [facility] 03-20-2023 09:13-0400 Heart rate 56 /min Ximena Archuleta CNP Work Phone: [facility] 03-20-2023 09:13-0400 SaO2% (BldA) [Mass fraction] 96 % Ximena Archuleta CNP Work Phone: [facility] 11-17-2022 10:01-0400 Blood Pressure Location Rachel FLORES [facility] 11-17-2022 10:01-0400 Diastolic blood pressure 87 mm[Hg] Rachel FLORES [facility] 11-17-2022 10:01-0400 Heart rate 58 /min Rachelcathy FLORES [facility] 11-17-2022 10:01-0400 Systolic blood pressure 137 mm[Hg] Rachelcathy FLORES [facility] 11-06-2022 10:21-0400 Body mass index (BMI) [Ratio] 31.76 kg/m2 Ximena Archuleta CNP Work Phone: [facility] 11-06-2022 10:21-0400 Body weight 83.92 kg Ximena Archuleta CNP Work Phone: [facility] 11-06-2022 10:21-0400 Diastolic blood pressure 80 mm[Hg] Ximena Archuleta HEALTH INFORMATION ADMINISTRATOR Work Phone: [facility] 11-06-2022 10:21-0400 Heart rate 64 /min Ximena Archuleta HEALTH INFORMATION ADMINISTRATOR Work Phone: [facility] 11-06-2022 10:21-0400 SaO2% (BldA) [Mass fraction] 95 % Ximena Archuleta HEALTH INFORMATION ADMINISTRATOR Work Phone: [facility] 11-06-2022 10:21-0400 Systolic blood pressure 125 mm[Hg] Ximena Archuleta HEALTH INFORMATION ADMINISTRATOR Work Phone: [facility] 09-15-2022 08:29-0400 Heart rate 60 /min Pollo Angulo MD Work Phone: [facility] 09-15-2022 07:06-0400 Body temperature 98.01 [degF] Pollo Angulo MD Work Phone: [facility] 09-15-2022 07:06-0400 Diastolic blood pressure 76 mm[Hg] Pollo Angulo MD Work Phone: [facility] 09-15-2022 07:06-0400 Respiratory rate 12 /min Pollo Angulo MD Work Phone: [facility] 09-15-2022 07:06-0400 SaO2% (BldA) [Mass fraction] 96 % Pollo Angulo MD Work Phone: [facility] 09-15-2022 07:06-0400 Systolic blood pressure 149 mm[Hg] Pollo Angulo MD Work Phone: [facility] 09-14-2022 09:11-0400 Body height 162.6 cm Pollo Angulo MD Work Phone: [facility] 09-14-2022 09:11-0400 Body mass index (BMI) [Ratio] 31.41 kg/m2 Pollo Angulo MD Work Phone: [facility] 09-14-2022 09:11-0400 Body weight 83.01 kg Atish Adele MD Work Phone: [facility] 08-22-2022 08:06-0400 Diastolic blood pressure 86 mm[Hg] Pollo Angulo MD Work Phone: [facility] 08-22-2022 08:06-0400 Systolic blood pressure 147 mm[Hg] Pollo Angulo MD Work Phone: [facility] 08-22-2022 08:05-0400 Body weight 85 kg Pollo Angulo MD Work Phone: [facility] 08-22-2022 08:05-0400 Heart rate 61 /min Pollo Angulo MD Work Phone: [facility] 08-22-2022 08:05-0400 SaO2% (BldA) [Mass fraction] 95 % Pollo Angulo MD Work Phone: [facility] Encounters Encounter Date Encounter Type Care Provider Facility Start: 01-29-2025 [id number] Start: 01-12-2025 End: 01-12-2025 ambulatory Rachel FLORES Facility:[facility] Start: 01-12-2025 End: 01-12-2025 Patient encounter procedure [facility] FLORES [facility] [facility] Start: 07-29-2024 End: 07-29-2024 Office outpatient visit 15 minutes Ximena Archuleta CNP Work Phone: [facility] Comment on above: Presence of Watchman left atrial appendage closure device (Primary Dx); PAF (paroxysmal atrial fibrillation) (HCC) Start: 07-29-2024 End: 07-29-2024 ambulatory MEDARDO ROBLES [facility] Start: 06-23-2024 End: 06-23-2024 ambulatory ANAI GAITAN Facility[facility] Start: 06-23-2024 End: 06-23-2024 Lab Drop off ANAI GAITAN [facility] Start: 06-23-2024 End: 06-23-2024 ambulatory ANAI GAITAN Facility:[facility] Start: 06-23-2024 End: 06-23-2024 Patient encounter procedure ANAI GAITAN [facility] Start: 06-17-2024 End: 06-19-2024 ambulatory RACHEL FLORES [facility] Start: 06-17-2024 End: 06-19-2024 Subsequent hospital visit by physician [facility] Additional Xray At [facility] Radiology Comment on above: Uric acid nephrolith iasis Start: 04-01-2024 End: 04-03-2024 ambulatory KYLE AUSTIN [facility] Start: 04-01-2024 End: 04-03-2024 Subsequent hospital visit by physician [facility] Additional Xray At [facility] Comment on above: Paroxysmal atrial fi brillation (HCC); Mitral valve insufficiency, unspecified etiology; Mixed hyperlipidemia; Primary hypertension; Vitamin D deficiency disease Start: 03-13-2024 End: 03-15-2024 ambulatory MEDARDO ROBLES [facility] Start: 02-29-2024 End: 02-29-2024 ambulatory GARIMA MCKEONBERNABE [facility] Start: 12-27-2023 ambulatory Rachel Felderi ty:[id number] Start: 12-24-2023 End: 12-24-2023 Lab Drop off Lashaun Mcintyre [facility] Start: 12-24-2023 End: 12-24-2023 ambulatory Lashaun Mcintyre Facility:[facility] Start: 12-24-2023 End: 12-24-2023 Patient encounter procedure Rachel FLORES [facility] Start: 11-16-2023 End: 11-16-2023 ambulatory Rachel FLORES Facility:[facility] [place] Start: 11-16-2023 End: 11-16-2023 Patient encounter procedure Rachel FLORES [facility] Start: 11-06-2023 End: 11-06-2023 ambulatory JESSICA Esquivel [facility] Start: 10-05-2023 End: 10-05-2023 ambulatory JESSICA [facility] Start: 09-07-2023 End: 09-11-2023 ambulatory [facility] Start: 09-07-2023 End: 09-07-2023 Office outpatient visit 15 minutes Ximena Archuleta CNP Work Phone: [facility] Comment on above: Atrial fibrillation, unspecified type (HCC) (Primary Dx) Start: 09-07-2023 End: 09-07-2023 ambulatory [facility] Start: 03-20-2023 End: 03-20-2023 Office outpatient visit 15 minutes Ximena Archuleta CNP Work Phone: [facility] Comment on above: Atrial fibrillation, unspecified type (HCC) (Primary Dx); Presence of Watchman left atrial appendage closure device Start: 03-15-2023 End: 03-16-2023 ambulatory [facility] Start: 03-02-2023 Documentation procedure Jack Escobar RN [facility] Start: 02-28-2023 Orders Only Jack Escobar RN [facility] Comment on above: Atrial fibrillation, chronic (HCC) (Primary Dx) Start: 11-17-2022 End: 11-17-2022 Patient encounter procedure Rachel FLORES [facility] Start: 11-13-2022 Refill Jack Escobar RN [facility] Comment on above: Medication Refill Start: 11-06-2022 End: 11-10-2022 ambulatory [facility] Start: 11-06-2022 End: 11-06-2022 Office outpatient visit 15 minutes Ximena Archuleta CNP Work Phone: [facility] Comment on above: Atrial fibrillation, chronic (HCC) (Primary Dx); Presence of Watchman left atrial appendage closure device Start: 11-03-2022 End: 11-03-2022 Subsequent hospital visit by physician Medardo Robles MD Work Phone: [facility] Laboratory Comment on above: Dysuria Start: 09-14-2022 Orders Only Jack Escobar RN [facility] Comment on above: Atrial fibrillation, chronic (HCC) (Primary Dx) Start: 09-14-2022 End: 09-15-2022 Evaluation and management of inpatient [facility] Start: 09-14-2022 End: 09-15-2022 Evaluation and management of inpatient [facility] Adele SAMSON Work Phone: [facility] Start: 09-11-2022 End: 09-15-2022 ambulatory [facility] Start: 09-11-2022 End: 09-15-2022 Encounter for other preprocedural examination [facility] Start: 09-08-2022 Documentation procedure Jack Escobar RN [facility] Start: 08-30-2022 End: 09-03-2022 Orders Only Jack Escobar RN [facility] Comment on above: Pre-op testing (Prim fariha Dx); Atrial fibrillation, chronic (HCC) Start: 08-30-2022 Patient encounter status Jack Escobar RN [facility] Start: 08-28-2022 Orders Only Jack Escobar RN [facility] Comment on above: Atrial fibrillation, unspecified type (HCC) (Primary Dx); Atrial fibrillation, chronic (HCC) Atrial fibrillation, unspecified type (HCC) (Primary Dx) Medication Refill Start: 08-25-2022 Documentation procedure Jack Escobar RN [facility] Start: 08-22-2022 End: 08-22-2022 Office outpatient new 60 minutes Pollo Angulo MD Work Phone: [facility] Comment on above: Atrial fibrillation, unspecified type (HCC) (Primary Dx); Essential hypertension Start: 08-17-2022 Chart abstracting uRby krueger [facility] Start: 08-16-2022 Documentation procedure Mahsa Temple [facility] Start: 03-06-2022 End: 03-08-2022 Subsequent hospital visit by physician [facility] Mammography Room [facility] Mammography Comment on above: Visit for screening mammogram Start: 10-10-2021 End: 10-10-2021 Subsequent hospital visit by physician Medardo Robles MD Work Phone: [facility] Start: 08-24-2021 End: 08-24-2021 Subsequent hospital visit by physician Medardo Robles MD Work Phone: [facility] Comment on above: Dysuria; Acute cystitis with hematuria Start: 07-13-2021 End: 07-13-2021 Subsequent hospital visit by physician Medardo Robles MD Work Phone: [facility] Start: 07-11-2021 End: 07-11-[address] RACHEL FLORES Facility:[facility] Start: 04-04-2021 End: 04-05-[address] DOCTOR FITZPATRICK Facility:[facility] Start: 03-03-2021 End: 03-05-2021 Subsequent hospital visit by physician [facility] Mammography Room [facility] Mammography Comment on above: Visit for screening mammogram Start: 02-28-2021 End: 02-28-2021 Subsequent hospital visit by physician Medardo Robles MD Work Phone: [facility] Comment on above: Dysuria Start: 04-13-2020 End: 04-15-2020 Subsequent hospital visit by physician [facility] Additional Xray At [facility] Comment on above: Elevated glucose; Essential hypertension; Hyperlipidemia, unspecified hyperlipidemia type; Vitamin D deficiency disease; Atrial fibrillation, unspecified type (HCC) Start: 03-08-2020 End: 03-08-2020 Subsequent hospital visit by physician Medadro Robles [facility] Comment on above: Complicated UTI (uri nary tract infection) Start: 06-16-2019 End: 06-16-2019 Subsequent hospital visit by physician Medardo Robles MD Work Phone: [facility] Comment on above: Pain and swelling of toe of left foot Start: 04-21-2019 End: 04-23-2019 Subsequent hospital visit by physician Steve Miranda [facility] Comment on above: Essential hypertensi on; Mitral valve insufficiency, unspecified etiology; Atrial fibrillation, unspecified type (HCC) Essential hypertensi on; Mitral valve insufficiency, unspecified etiology; Atrial fibrillation, unspecified type (HCC); Hyperlipidemia, unspecified hyperlipidemia type; Vitamin D deficiency disease Procedures Date Procedure Procedure Detail Performing Clinician Start: 07-29-2024 Ecg routine ecg w/le ast 12 lds w/i&r Ximena Archuleta HEALTH INFORMATION ADMINISTRATOR Work Phone: Start: 06-17-2024 Radiologic exam abdo [...] Work Phone: Start: 03-13-2024 Mammography Ximena chi HEALTH INFORMATION ADMINISTRATOR Work Phone: Start: 09-07-2023 Ecg routine ecg w/le ast 12 lds w/i&r Ximena Archuleta HEALTH INFORMATION ADMINISTRATOR Work Phone: Start: 03-20-2023 Ecg routine ecg w/le ast 12 lds w/i&r Ximena Archuleta HEALTH INFORMATION ADMINISTRATOR Work Phone: Start: 03-09-2023 Mammography Ximena chi HEALTH INFORMATION ADMINISTRATOR Work Phone: Start: 11-06-2022 Ecg routine ecg w/le ast 12 lds w/i&r Ximena Archuleta CNP Work Phone: Start: 09-15-2022 Echo transthorc r-t [...] Start: 10-10-2021 Electrolyte panel Patri ck R Sandra Work Phone: Start: 09-14-2021 Procedure on heart valve Rachel FLORES Start: 07-13-2021 Electrolyte panel Patri ck R Sandra Work Phone: Start: 03-03-2021 Screening mammograph y bi 2-view breast inc cad Medardo L Verhoff MD Work Phone: Start: 04-13-2020 Radiologic exam ches t 2 views Kyle Austin Work Phone: Start: 04-13-2020 25 hydroxy includes fractions if performed Kyle Austin Work Phone: Start: 04-13-2020 Assay of free thyroxine Kyle Ausitn Work Phone: Start: 04-13-2020 Assay of magnesium [...] vaccine (2 - Td or Tdap) [facility] Start: 06-30-2032 Tetanus vaccination Tetanus: Every 10yrs [facility] Start: 04-01-2029 Lipid panel Lipids [facility] Start: 04-09-2028 Lipid panel Lipids [facility] Start: 04-11-2027 Lipid panel Lipids [facility] Start: 04-15-2026 Lipid panel [facility] Start: 06-14-2025 Colon cancer screen colonoscopy Colon cancer [facility] [place] Start: 06-14-2025 Screening for malignant neoplasm of colon [facility] Start: 05-02-2025 Annual Wellness Visit (Medicare) Annual Wellness Visit (Medicare) [facility] Start: 05-01-2025 Depression Screen Depression Screen [facility] Start: 05-01-2025 Medicare Wellness Visit Medicare Wellness Visit [facility] Start: 04-13-2025 Lipid panel Lipid screen [facility] Work Phone: Start: 04-06-2025 End: 04-06-2025 Patient encounter procedure 04/06/2025 10:30 AM EST Office Visit [facility]ier Associate [address] [facility] [place] [address] Shar rFias DO [address] [facility] [place] [address] 1 yr f/u [facility] Comment on above: 1 yr f/u Start: 03-13-2025 Screening for malignant neoplasm of breast Mammogram [facility] Start: 10-30-2024 End: 10-30-2024 Patient encounter procedure 10/30/2024 8:20 AM EDT Office Visit [facility] [address] [place] [id number] Medardo Robles MD [address] [place] [id number] 6 mos - HTN, Hyperlipidemia, gerd, afib, osteoporosis. [facility] Comment on above: 6 mos - HTN, Hyperlipidemia, gerd, afib, osteoporosis. Start: 06-26-2024 Depression Screen Depression Screen [facility] Start: 05-01-2024 End: 05-01-2024 Patient encounter procedure 05/01/2024 8:20 AM EST Office Visit [facility] [address] [place] [id number] Medardo Robles MD [address] [place] [address] AWV - 6 mos - HTN, gerd, afib, osteoporosis [facility] Comment on above: AWV - 6 mos - HTN, gerd, afib, osteoporo sis Start: 04-30-2024 Annual Wellness Visit (Medicare) Annual Wellness Visit (Medicare) [facility] Start: 04-30-2024 History and physical examination, annual for health maintenance Wellness Visit [facility] Start: 04-21-2024 Lipid panel Lipid screen [facility] [place] Start: 04-21-2024 Lipid screen Lipid screen [facility] Start: 04-07-2024 End: 04-07-2024 Patient encounter procedure 04/07/2024 10:30 AM EST Office Visit [facility] Associate [address] [place] [id number] Kyle Austin MD [address] [place] [address] 1 year follow up labs ekg cxr [facility] Comment on above: 1 year follow up labs ekg cxr Start: 03-09-2024 Screening for malignant neoplasm of breast Mammogram [facility] Start: 03-06-2024 Screening for malignant neoplasm of breast Breast cancer screen [facility] Start: 01-20-2024 COVID-19 Vaccine ( season) COVID-19 Vaccine ( season) [facility] Start: 01-20-2024 COVID-19 Vaccine ( season) COVID-19 Vaccine ( season) [facility] Start: 01-20-2024 Influenza vaccination Influenza Vaccine (#1) [facility] Start: 12-20-2023 Influenza vaccination Flu vaccine (#1) [facility] Start: 12-12-2023 Respiratory Syncytial Virus Immunization: Risk, 60-74 Risk, or 75+ (1 - 1-dose 75+ series) Respiratory Syncytial Virus Immunization: Risk, 60-74 Risk, or 75+ (1 - 1-dose 75+ series) [facility] Start: 10-26-2023 Depression Screen Depression Screen [facility] Start: 09-07-2023 End: 09-07-2023 Patient encounter procedure 09/07/2023 9:00 AM EDT Office Visit [facility] [address] [facility] [place] [address] Ximena Archuleta, HEALTH INFORMATION ADMINISTRATOR [address] [place] [address] [facility] Start: 04-30-2023 End: 04-30-2023 Patient encounter procedure 04/30/2023 Office Visit Family Medicine Medardo Robles MD [address] [place] [address] [facility] Start: 04-27-2023 Annual Wellness Visit (AWV) Annual Wellness Visit (AWV) [facility] Start: 04-26-2023 History and physical examination, annual for health maintenance Wellness Visit [facility] Start: 04-19-2023 End: 04-19-2023 Patient encounter procedure 04/19/2023 Office Visit Cardiology Kyle Austin MD [address] [place] [address] [facility] Start: 03-29-2023 Lipid screen Lipid screen [place], [place] Start: 03-20-2023 End: 03-20-2023 Patient encounter procedure 03/20/2023 9:30 AM EDT Office Visit [facility] [address] [facility] [place] [address] Ximena Archuleta CNP [address] [place], [place] [phone] [facility] Start: 03-16-2023 End: 09-15-2023 CT Pulmonary Vein With Reconstructions 3D CT Pulmonary Vein With Reconstructions 3D Imaging Routine Atrial fibrillation, chronic (HCC) Expected: 03/16/2023, Expires: 09/15/2023 [facility] Work Phone: Comment on above: Expected: 03/16/2023, Expires: Start: 03-15-2023 End: 03-15-2023 Patient encounter procedure 03/15/2023 9:00 AM EDT Appointment [facility] CT Scan [address] [place] [phone] Pollo Angulo MD [address] [place] [address] [facility] [address] Scan Start: 03-06-2023 Screening for malignant neoplasm of breast Mammogram [facility] Start: 03-03-2023 Screening for malignant neoplasm of breast Breast cancer screen [facility] Start: 01-19-2023 COVID-19 Vaccine ( season) COVID-19 Vaccine () [facility] Start: 01-19-2023 Influenza vaccination Sequential Influenza Vaccine (#1) [facility] Start: 11-06-2022 End: 11-06-2022 Patient encounter procedure 11/06/2022 10:30 AM EDT Office Visit [facility] [address] [facility] [place] [address] Ximena Archuleta, JIMENA [address] [place] [address] [facility] Start: 09-14-2022 End: 09-14-2022 Admission to same day surgery center [facility] Comment on above: Left Atrial Appendage Closure Start: 09-14-2022 Subsequent hospital visit by physician [facility] Proced[facility] Care Unit Start: 09-05-2022 End: 08-31-2023 Blood type and Indirect antibody screen panel - Blood Type and Screen Blood Bank Routine Pre-op testing Expected: 09/05/2022, Expires: 08/31/2023 [facility] Comment on above: Expected: 09/05/2022, Expires: 4 Start: 09-05-2022 End: 08-31-2023 Complete blood count with white cell differential, manual CBC and differential Lab Routine Pre-op testing Expected: 09/05/2022, Expires: 08/31/2023 [facility] Work Phone: Comment on above: Expected: 09/05/2022, Expires: 4 Start: 09-05-2022 End: 08-31-2023 Comprehensive metabolic 2000 panel - Serum or Plasma Comprehensive metabolic panel Lab Routine Pre-op testing Expected: 09/05/2022, Expires: 08/31/2023 [facility] Comment on above: Expected: 09/05/2022, Expires: 4 Start: 09-05-2022 End: 08-31-2023 INR in Platelet poor plasma by Coagulation assay [facility] Routine Pre-op testing Atrial fibrillation, chronic (HCC) Expected: 09/05/2022, Expires: 08/31/2023 [facility] Comment on above: Expected: 09/05/2022, Expires: 4 Start: 09-05-2022 End: 09-05-2022 Patient encounter procedure [facility] CT Scan Start: 08-24-2022 Depression Screen Depression Screen [facility] Start: 08-22-2022 End: 08-22-2022 Patient encounter procedure 08/22/2022 8:00 AM EDT Office Visit [facility] [address] [place] [address] [place] [address] Pollo Angulo MD [address] [place] [address] [facility] Start: 07-13-2022 Creatinine measurement Creatinine monitoring [facility] Start: 07-13-2022 Potassium monitoring Potassium monitoring [facility] Start: 04-26-2022 Annual Wellness Visit (AWV) Annual Wellness Visit (AWV) [facility] Start: 04-26-2022 End: 04-26-2022 Patient encounter procedure 04/26/2022 Office Visit Family Medicine Medardo Robles MD [address] [place] [address] [facility] Start: 04-25-2022 Depression Screen Depression Screen [facility] Start: 04-25-2022 Hemoglobin A1c measurement A1C test (Diabetic or Prediabetic) [facility] Start: 04-20-2022 End: 04-20-2022 Patient encounter procedure 04/20/2022 Office Visit Cardiology Kyle Austin MD [address] [place] [address] [facility] Start: 01-19-2022 Influenza vaccination [facility] Start: 01-13-2022 Screening for malignant neoplasm of breast Breast cancer screen [facility] Start: 10-24-2021 End: 10-24-2021 Patient encounter procedure 10/24/2021 Office Visit Family Medicine Medardo Robles MD [address] [place], [place] [phone] [facility] Start: 04-25-2021 End: 04-25-2021 Patient encounter procedure 04/25/2021 Office Visit Family Medicine Medardo Robles MD [address] [place] [address] [facility] Start: 04-21-2021 End: 04-21-2021 Patient encounter procedure 04/21/2021 Office Visit Cardiology Kyle Austin MD [address] [place] [address] [facility] Start: 04-13-2021 Creatinine [facility] Start: 04-13-2021 Hemoglobin A1c measurement A1C test (Diabetic or Prediabetic) [facility]: Start: 04-13-2021 Potassium monitoring [facility]assium monitoring [facility]: Start: 04-04-2021 Shingles Vaccine (2 of 2) Shingles Vaccine (2 of 2) [facility]: Start: 03-03-2021 End: 03-03-2021 Patient encounter procedure 03/03/[address] [facility] Start: 02-18-2021 Annual Wellness Visit (AWV) Annual Wellness Visit (AWV) [place], [place] Start: 02-17-2021 Pneumococcal 65+ years Vaccine (2 - PCV) Pneumococcal 65+ years Vaccine (2 - PCV) [facility] Start: 01-19-2021 Influenza vaccination Flu vaccine (#1) [facility] Start: 10-04-2020 Breast cancer screen Breast cancer screen [place], [place] Start: 04-22-2020 End: 04-22-2020 Office Visit 04/22/2020 Office Visit Cardiology Kyle Austin MD [address] [place] [address] [phone] [facility] Start: 04-21-2020 Creatinine measurement Creatinine monitoring [place], [place] Start: 04-21-2020 Creatinine monitoring Creatinine monitoring [place], [place] Start: 04-21-2020 Potassium monitoring Potassium monitoring [place], [place] Start: 04-21-2020 End: 04-21-2020 Office Visit 04/21/2020 Office Visit Family Medicine Medardo Robles MD [address] [place] [address] [phone] [facility] Start: 03-18-2020 Pneumococcal 65+ years Vaccine (1 of 1 - PPSV23) Pneumococcal 65+ years Vaccine (1 of 1 - PPSV23) [place] Comment on above: Postponed from 2013 (Patient Refus ed) Start: 01-20-2020 Influenza vaccination Flu vaccine (#1) [place] Start: 01-10-2020 Annual Wellness Visit (AWV) Annual Wellness Visit (AWV) [place] Start: 09-17-2019 End: 09-17-2019 Office Visit 09/17/2019 Office Visit Family Medicine Medardo Robles MD [address] [place] [address] [phone] [facility] Start: 04-28-2019 End: 04-28-2019 Office Visit 04/28/2019 Office Visit Cardiology Kyle Austin MD [address] [place] [address] [phone] [facility] Start: 03-29-2019 Creatinine monitoring Creatinine monitoring [place], [place] Start: 03-29-2019 Potassium monitoring Potassium monitoring [place], [place] Start: 01-19-2019 Influenza vaccination Flu vaccine (#1) [place], [place] Start: 2013 Fall risk assessment Falls Risk Assessment [facility] Start: 2013 Pneumococcal Vaccine: Age 65+ (1 - PCV) Pneumococcal Vaccine: Age 65+ (1 - PCV) [facility] Start: 1998 Administration of herpes zoster vaccine Zoster Vaccines (1 of 2) [facility] Start: 1998 Screening for malignant neoplasm of colon Flexible sigmoidoscopy [facility] Start: 1998 Shingles Vaccine (1 of 2) Shingles Vaccine (1 of 2) [place] Start: 1993 Screening for malignant neoplasm of colon [facility] Start: 1988 Diabetes screen Diabetes screen [place], [place] Start: 1988 Screening for malignant neoplasm of breast Mammogram [facility] Start: 12-12-1967 DTaP/Tdap/Td vaccine (1 - Tdap) DTaP/Tdap/Td vaccine (1 - Tdap) [facility] Start: 1966 Hepatitis C screening [facility] Start: 1960 Depression screening using PHQ-9 (Patient Health Questionnaire 9) score [facility] Start: 12-12-1959 DTaP/Tdap/Td vaccine (1 - Tdap) DTaP/Tdap/Td vaccine (1 - Tdap) [place], [place] Start: 1958 HbA1c (Bld) [Mass fraction] A1C test (Diabetic or Prediabetic) [place] Start: 12-12-1951 History and physical examination, annual for health maintenance Wellness Visit [facility] Start: 06-13-1949 COVID-19 Vaccine (#1) COVID-19 Vaccine (#1) [facility] Start: 1948 Hepatitis C screen Hepatitis C screen [place], [place] Start: 1948 Hepatitis C screening Hepatitis C screen [facility] Start: 1948 Screening for malignant neoplasm of colon [facility] Start: 1948 Screening for osteoporosis Dexa Scan [facility] [facility] Start: 1950 Tetanus vaccination Tetanus: Every 10yrs [facility] 12 lead ECG ECG 12 Lead ECG Routine Atrial fibrillation, unspecified type (HCC) 09/07/2023 8:45 AM EDT [facility] End: 08-29-2023 Basic metabolic 2000 panel - Serum or Plasma Basic metabolic panel Lab Routine Atrial fibrillation, unspecified type (HCC) 1 Occurrences starting 08/28/2022 until 08/29/2023 [facility] Work Phone: Comment on above: 1 Occurrences starting 08/28/2022 until 08/29/2023 End: 02-29-2024 Basic metabolic 2000 panel - Serum or Plasma Basic metabolic panel Lab Routine Atrial fibrillation, chronic (HCC) 1 Occurrences starting 02/28/2023 until 02/29/2024 [facility] Comment on above: 1 Occurrences starting 02/28/2023 until 02/29/2024 End: 07-22-2024 Basic metabolic 2000 panel - Serum or Plasma Basic metabolic panel Lab Routine Atrial fibrillation, unspecified type (HCC) 1 Occurrences starting 09/07/2023 until 07/22/2024 [facility] Comment on above: 1 Occurrences starting 09/07/2023 until 07/22/2024 Basic metabolic 2000 panel - Serum or Plasma Basic metabolic panel Lab Routine Atrial fibrillation, unspecified type (HCC) 09/07/2023 9:08 AM EDT [facility] End: 07-25-2025 Basic metabolic 2000 panel - Serum or Plasma Basic metabolic panel Lab Routine PAF (paroxysmal atrial fibrillation) (HCC) 1 Occurrences starting 07/29/2024 until 07/25/2025 [facility] Comment on above: 1 Occurrences starting 07/29/2024 until 07/25/2025 End: 02-29-2024 Complete blood count with white cell differential, manual CBC and differential Lab Routine Atrial fibrillation, chronic (HCC) 1 Occurrences starting 02/28/2023 until 02/29/2024 [facility] Work Phone: Comment on above: 1 Occurrences starting 02/28/2023 until 02/29/2024 End: 07-22-2024 Complete blood count with white cell differential, manual CBC and differential Lab Routine Atrial fibrillation, unspecified type (HCC) 1 Occurrences starting 09/07/2023 until 07/22/2024 [facility] Work Phone: Comment on above: 1 Occurrences starting 09/07/2023 until 07/22/2024 Complete blood count with white cell differential, manual CBC and differential Lab Routine Atrial fibrillation, unspecified type (HCC) 09/07/2023 9:08 AM EDT [facility] End: 07-25-2025 Complete blood count with white cell differential, manual CBC and differential Lab Routine PAF (paroxysmal atrial fibrillation) (HCC) 1 Occurrences starting 07/29/2024 until 07/25/2025 [facility] Work Phone: Comment on above: 1 Occurrences starting 07/29/2024 until 07/25/2025 End: 08-29-2023 CT Pulmonary Vein With Reconstructions 3D CT Pulmonary Vein With Reconstructions 3D Imaging Routine Atrial fibrillation, unspecified type (HCC) 1 Occurrences starting 08/28/2022 until 08/29/2023 [facility] Comment on above: 1 Occurrences starting 08/28/2022 until 08/29/2023 End: 03-08-2020 Culture, Urine Culture, Urine Microbiology Routine Complicated UTI (urinary tract infection) 1 Occurrences starting 03/08/2020 until 03/08/2020 [employer] [place] [employer] Comment on above: 1 Occurrences starting 03/08/2020 until 03/08/2020 Culture, Urine [employer] [place] End: 02-28-2021 Culture, Urine Culture, Urine Microbiology Routine Dysuria 1 Occurrences starting 02/28/2021 until 02/28/2021 [employer] Work Phone: Comment on above: 1 Occurrences starting 02/28/2021 until 02/28/2021 End: 08-24-2021 Culture, Urine [facility] Work Phone: Comment on above: 1 Occurrences starting 08/24/2021 until 08/24/2021 End: 11-03-2022 [facility] on above: 1 Occurrences starting 11/03/2022 until 11/03/2022 End: 10-29-2023 Echocardiography Echocardiogram complete Echocardiography Routine Atrial fibrillation, unspecified type (HCC) Atrial fibrillation, chronic (HCC) 1 Occurrences starting 08/28/2022 until 10/29/2023 [facility] Work Phone: Comment on above: 1 Occurrences starting 08/28/2022 until 10/29/2023 EKG 12 Lead [facility]- [place], [place] LEFT ATRIAL APPENDAG E LIGATION LEFT ATRIAL APPENDAGE LIGATION atrial fibrillation [facility] End: 03-06-2022 [facility] KRISSY DIGITAL SCREEN BILATERAL [facility] Work Phone: Comment on above: 1 Occurrences starting 03/06/2022 until 03/06/2022 Immunizations Immunization Date Immunization Notes Care Provider Wesley chavez 01-17-2024 RSV, AREXVY, (age 60y+), PF, IM, 0.5mL Medardo Robles MD Work Phone: [facility] 04-16-2023 influenza virus vaccine, unspecified formulation ANAI GAITAN [facility] 04-16-2023 Influenza, FLUAD, (a ge 65 y+), IM, Quadv, 0.5mL Medardo Robles MD Work Phone: [facility] 06-30-2022 tetanus toxoid, redu fareed diphtheria toxoid, and acellular pertussis vaccine, adsorbed Rachel FLORES [facility] 02-16-2022 influenza virus vaccine, unspecified formulation Rachel FLORES [facility] 02-16-2022 Influenza, FLUAD, (a ge 65 y+), Adjuvanted, 0.5mL Medardo Robles MD Work Phone: [facility] 02-16-2022 SARS-CoV-2 (COVID-19 ) [id number] Rachel FLORES [facility] 01-09-2022 Pneumococcal, PCV20, PREVNAR 20, (age 18y+), IM, 0.5mL Medardo Robles MD Work Phone: [facility] 04-29-2021 zoster vaccine recombinant [facility] Room [facility] Work Phone: 04-19-2021 COVID-19, Moderna, Primary or Immunocompromised, PF, 100mcg/0.5mL Medardo Robles MD Work Phone: [facility] 04-18-2021 COVID-19, MODERNA BL UE border, Primary or Immunocompromised, (age 12y+), IM, 100 mcg/0.5mL [facility] Room [facility] [email or web address] Work Phone: 02-07-2021 zoster vaccine recombinant Medardo Robles MD Work Phone: [facility] Work Phone: 08-23-2020 COVID-19, Moderna, P F, 100mcg/0.5mL Medardo Robles MD Work Phone: [facility] Work Phone: 07-26-2020 COVID-19, Moderna, P F, 100mcg/0.5mL Medardo Robles MD Work Phone: [facility] Work Phone: 05-21-2020 SARS-CoV-2 (COVID-19 ) mRNA BNT-162b2 vax Rachel FLORES [facility] 02-18-2020 pneumococcal polysaccharide vaccine, 23 valent [employer] NEGATED: Highlighted row has not occurred!05-19-2019 influenza virus vaccine, live, attenuated, for intranasal use Rachel FLORES [facility] Payers Date Payer Category Payer Miscellaneous or Other [employer] COMM [employer]CIAL [id number] 2022 Unknown CHELAP RICHELLE NOVAK [id number] 2022-Present [phone] [address] [place] [address] [id number] .[id number] 2021 Private Health Insurance [id number] 2014 Medicare xxxxxxxxxxx [id number] 2013 Medicare [id number] .[id number] 1959 Medicare [id number] [id number] .[id number] 1959 Private Health Insurance [id number] 1.2.840.081242.1.13.239.2 .7.3.374059.315 1948 Unknown [id number] 2.16.840.1.362128.3.579.2 .593 1948 Unknown [id number] 2.16.840.1.808326.3.579.2 .59 1948 Unknown [id number] 2.16.840.1.538164.3.579.2 .903 1948 Unknown [id number] 2.16.840.1.224773.3.579.2 .903 1948 Unknown [id number] 2.16.840.1.555599.3.579.2 .903 1948 Unknown [id number] 2.16.840.1.934871.3.579.2 .903 1948 Unknown [id number] 2.16.840.1.164112.3.579.2 .903 1948 Unknown [id number] 2.16.840.1.969825.3.579.2 .903 1948 Unknown [id number] 2.16.840.1.140869.3.579.2 .727 1948 Unknown [id number] 2.16.840.1.040588.3.579.2 .727 1948 Unknown [id number] 2.16.840.1.136608.3.579.2 .727 1948 Unknown [id number] 2.16.840.1.958862.3.579.2 .174 1948 Unknown [id number] 2.16.840.1.003077.3.579.2 .174 1948 Unknown [id number] 2.16.840.1.832457.3.579.2 .174 1948 Unknown [id number] 2.16.840.1.974197.3.579.2 .174 1948 Unknown [id number] 2.16.840.1.071853.3.579.2 .174 1948 Unknown [id number] 2.16.840.1.176295.3.579.2 .174 1948 Unknown [id number] 2.16.840.1.793505.3.579.2 .174 1948 Unknown [id number] 2.16.840.1.596044.3.579.2 .174 1948 Unknown [id number] 2.16.840.1.064308.3.579.2 .174 1948 Unknown [id number] 2.16.840.1.341823.3.579.2 .174 1948 Unknown [id number] 2.16.840.1.681993.3.579.2 .903 1948 Unknown [id number] 2.16.840.1.571610.3.579.2 .903 1948 Unknown [id number] 2.16.840.1.290038.3.579.2 .727 1948 Unknown [id number] 2.16.840.1.082954.3.579.2 .727 1948 Unknown [id number] 2.16.840.1.813986.3.579.2 .727 Social History Date Type Detail Facility Start: 03-18-2019 End: 01-12-2025 Tobacco smoking status MAIS Never smoker [place] Start: 03-18-2019 End: 05-01-2024 Alcohol intake Current non-drinker of alcohol (finding) [place] Start: 1950 Sex Assigned At Not on file [place] Start: 03-08-2020 End: 08-22-2022 Tobacco use and exposure Never used [place] Start: 10-20-2020 End: 10-25-2022 History SDOH Financial [employer] [facility] Phone: Start: 10-20-2020 End: 10-25-2022 History SDOH Food Worry 1 [facility] Phone: Start: 10-24-2021 History SDOH Financial [facility] Phone: Tobacco smoking status MAIS Tobacco smoking consumption unknown [facility] Start: 08-22-2022 End: 07-29-2024 Gender identity Not on file [facility] Start: 08-22-2022 End: 07-29-2024 Alcohol intake Lifetime non-drinker (finding) [facility] Start: 08-22-2022 Gender identity Identifies as female gender (finding) [facility] Start: 08-22-2022 Sexual orientation Heterosexual (fin ding) [facility] Start: 08-12-2022 End: 09-05-2022 Exposure to SARS-CoV-2 (event) Not sure [facility] Start: 08-22-2022 End: 07-29-2024 History of Social function [employer] Start: 04-26-2022 History SDOH Alcohol Std Drinks 0 [employer] Start: 10-25-2022 History SDOH Transport Non-Med 2 [facility] Tobacco smoking status Never [facility] How often to you hav e a drink containing alcohol? Never [facility] (I/We) worried whether (my/our) food would run out before (I/we) got money to buy more. Never true [employer] Sexual Orientation [facility] Start: 12-30-2018 Sex Female (finding) [facility] NEGATED: Highlighted rowStart: NINF History of tobacco use Passive smoker [employer] Medical Equipment Procedure Code Equipment Code Equipment Origin al Text Equipment Identifier Dates Device 27mm Watchman Flex - [id number] Start: 09-14-2022 Comment on above: Description: MARION Closure Perclose Prostyle - [id number] FDA Start: 09-14-2022 Comment on above: Description: Femoral System Watchman Flex Procedure Charge - [id number] Start: 09-14-2022 Functional Status Date Assessment Result Facility 06-23-2024 Functional Status N/A [facility] 11-16-2023 Functional Status N/A [facility] 11-17-2022 Functional Status N/A [facility] Clinical Notes 08-16-2022 to 01-12-2025 Ximena Archuleta CNP - 07/29/2024 10:30 AM Ruby Purvis MA - 07/29/2024 10:20 AM EDTPatient Ximena Rios CNP - 09/07/2023 8:52 AM EDTPatient Instructions Note Date & Type Note Facility 01-12-2025 Hospital Discharge instructions Patient Education 01/12/2025 14:49:47 Laser Therapy for Kidney Stones, Care After Laser Therapy for Kidney Stones, Care After After laser therapy for kidney stones, it is common to have: Pain. A burning feeling when you pee (urinate). Small amounts of blood in your pee (urine). A need to pee a lot. Parts of the kidney stone in your pee. Mild discomfort in your back when you pee. You may have this if you had a small mesh tube (stent) placed during the procedure. Follow these instructions at home: Medicines Take eqri-nqx-ifgwnxh and prescription medicines only as told by your health care provider. If you were prescribed antibiotics, take them as told by your provider. Do not stop using the antibiotic even if you start to feel better. Ask your provider if the medicine prescribed to you: ?Requires you to avoid driving or using machinery. ?Can cause constipation. You may need to take these actions to prevent or treat constipation: ?Drink enough fluid to keep your pee pale yellow. ?Take hbxw-epy-mzzvhkm or prescription medicines. ?Eat foods that are high in fiber, such as beans, whole grains, and fresh fruits and vegetables. ?Limit foods that are high in fat and processed sugars, such as fried or sweet foods. Activity If you were given a sedative during the procedure, it can affect you for several hours. Do not drive or operate machinery until your provider says that it is safe. Return to your normal activities as told by your provider. Ask your provider what activities are safe for you. General instructions Your provider may recommend that you drink a lot of water for a few hours after your procedure. If you have heart or kidney disease, ask your provider how much you should drink. You may be asked to strain your pee to collect any stone pieces that you pass. Your provider may have these pieces tested. Do not take baths, swim, or use a hot tub until your provider approves. Ask your provider if you may take warm baths to soothe the burning. Keep all follow-up visits. If you have a stent, you will need to go back to your provider to have it removed. Your provider may give you more instructions. Make sure you know what you can and cannot do. Contact a health care provider if: You have pain or a burning feeling that lasts for more than 2 days. You feel nauseous. You vomit more and more often. You have trouble peeing. You have pain that gets worse or does not get better with medicine. You have a fever or shaking chills. Get help right away if: You cannot pee, even when your bladder feels full. You faint. You have chest pain, shortness of breath, or cough up blood. You have: ?Bright red blood or blood clots in your pee. ?Severe pain or discomfort. ?Pain in your abdomen. ?Swelling in your legs. These symptoms may be an emergency. Get help right away. Call 911. Do not wait to see if the symptoms will go away. Do not drive yourself to the hospital. This information is not intended to replace advice given to you by your health care provider. Make sure you discuss any questions you have with your health care provider. Document Revised: 01/05/2023 Document Reviewed: 01/05/2023 [employer] Patient Education 2023 [employer]. 01/12/2025 14:49:46 Laser Therapy for Kidney Stones Laser Therapy for Kidney Stones Laser therapy for kidney stones is a procedure to break up rock-like masses that form inside the kidneys (kidney stones). It is done using a device that beams a strong light (laser) on the kidney stones. This breaks the stones up into small pieces. These small pieces may leave your body when you pee (urinate) or may be taken out during the procedure. You may need laser therapy if you have kidney stones that are painful or that are stopping you from being able to pee. Tell a health care provider about: Any allergies you have. All medicines you are taking, including vitamins, herbs, eye drops, creams, and ahvo-jrw-chqwqny medicines. Any problems you or family members have had with anesthesia. Any bleeding problems you have. Any surgeries you have had. Any medical conditions you have. Whether you are or may be . What are the risks? Your health care provider will talk with you about risks. These may include: Infection. Bleeding. Allergic reactions to medicines. Damage to: ?The part of your body that drains pee (urine) from the bladder (urethra). ?The bladder. ?The tube that connects the bladder to the kidneys (ureter). Urinary tract infection (UTI). Urethral stricture. This is when the urethra is narrowed by scarring. Trouble peeing. Blockage of the kidney. This may be caused by a piece of kidney stone. What happens before the procedure? When to stop eating and drinking Follow instructions from your provider about what you may eat and drink. These may include: 8 hours before the procedure ?Stop eating most foods. Do not eat meat, fried foods, or fatty foods. ?Eat only light foods, such as toast or crackers. ?All liquids are okay except energy drinks and alcohol. 6 hours before the procedure ?Stop eating. ?Drink only clear liquids, such as water, clear fruit juice, black coffee, plain tea, and sports drinks. ?Do not drink energy drinks or alcohol. 2 hours before the procedure ?Stop drinking all liquids. ?You may be allowed to take medicines with small sips of water. If you do not follow your provider's instructions, your procedure may be delayed or canceled. Medicines Ask your provider about: ?Changing or stopping your regular medicines. These include any diabetes medicines or blood thinners you take. ?Taking medicines such as aspirin and ibuprofen. These medicines can thin your blood. Do not take them unless your provider tells you to. ?Taking giic-wqx-mdnedpp medicines, vitamins, herbs, and supplements. Tests You may have a physical exam before the procedure. You may also have tests done. These may include: ?Imaging tests. ?Blood or pee tests. Surgery safety Ask your provider: ?How your surgery site will be marked. ?What steps will be taken to help prevent infection. These steps may include: ?Removing hair at the surgery site. ?Washing skin with a soap that kills germs. ?Taking antibiotics. General instructions Do not use any products that contain nicotine or tobacco for at least 4 weeks before the procedure. These products include cigarettes, chewing tobacco, and vaping devices, such as e-cigarettes. If you need help quitting, ask your provider. If you will be going home right after the procedure, plan to have a responsible adult: ?Take you home from the hospital or clinic. You will not be allowed to drive. ?Care for you for the time you are told. What happens during the procedure? An IV will be inserted into one of your veins. You will be given: ?A sedative. This helps you relax. ?Anesthesia. This keeps you from feeling pain. It will make you fall asleep for surgery. A tool with a camera on the end (ureteroscope) will be put into your urethra. It will be moved through your bladder to your kidney. It will send pictures to a screen in the operating room. This will show what parts of your kidney need to be treated. A tube will be put through the ureteroscope. It will be moved into your kidney. The laser device will be put into your kidney through the tube. The laser will be used to break up the kidney stones. A tool with a tiny wire basket may be put through the tube into your kidney. This can help remove the small pieces of the kidney stone. A small mesh tube (stent) may be placed to allow your kidney to drain. The tube and ureteroscope will be taken out at the end of the surgery. The procedure may vary among providers and hospitals. What happens after the procedure? Your blood pressure, heart rate, breathing rate, and blood oxygen level will be monitored until you leave the hospital or clinic. If you had a stent placed, it may have a string that will be secured to your skin. This helps your provider remove the stent. You may be given a strainer to collect any stone pieces that you pass in your pee. Your provider may have these tested. This information is not intended to replace advice given to you by your health care provider. Make sure you discuss any questions you have with your health care provider. Document Revised: 01/05/2023 Document Reviewed: 01/05/2023 [employer] Patient Education 2023 [employer]. Follow Up Care 06/23/2024 10:29:22 With:SANDRA SAMSON, Rachel Peña, URL Address: [address] [place] [id number] When: Unknown Comments:venkatesh Rubio [employer], laser litho [facility] 01-12-2025 Note Patient Education Nephrology Laser Therapy for Kidney Stones, Care After After laser therapy for kidney stones, it is common to have: ??? Pain. ??? A burning feeling when you pee (urinate). ??? Small amounts of blood in your pee (urine). ??? A need to pee a lot. ??? Parts of the kidney stone in your pee. ??? Mild discomfort in your back when you pee. You may have this if you had a small mesh tube (stent) placed during the procedure. Follow these instructions at home: Medicines ??? Take xavz-kul-luqtzft and prescription medicines only as told by your health care provider. ??? If you were prescribed antibiotics, take them as told by your provider. Do not stop using the antibiotic even if you start to feel better. ??? Ask your provider if the medicine prescribed to you: ? Requires you to avoid driving or using machinery. ? Can cause constipation. You may need to take these actions to prevent or treat constipation: ? Drink enough fluid to keep your pee pale yellow. ? Take tcnh-kqr-wxzwwjk or prescription medicines. ? Eat foods that are high in fiber, such as beans, whole grains, and fresh fruits and vegetables. ? Limit foods that are high in fat and processed sugars, such as fried or sweet foods. Activity ??? If you were given a sedative during the procedure, it can affect you for several hours. Do not drive or operate machinery until your provider says that it is safe. ??? Return to your normal activities as told by your provider. Ask your provider what activities are safe for you. General instructions ??? Your provider may recommend that you drink a lot of water for a few hours after your procedure. If you have heart or kidney disease, ask your provider how much you should drink. ??? You may be asked to strain your pee to collect any stone pieces that you pass. Your provider may have these pieces tested. ??? Do not take baths, swim, or use a hot tub until your provider approves. Ask your provider if you may take warm baths to soothe the burning. ??? Keep all follow-up visits. If you have a stent, you will need to go back to your provider to have it removed. Your provider may give you more instructions. Make sure you know what you can and cannot do. Contact a health care provider if: ??? You have pain or a burning feeling that lasts for more than 2 days. ??? You feel nauseous. ??? You vomit more and more often. ??? You have trouble peeing. ??? You have pain that gets worse or does not get better with medicine. ??? You have a fever or shaking chills. Get help right away if: ??? You cannot pee, even when your bladder feels full. ??? You faint. ??? You have chest pain, shortness of breath, or cough up blood. ??? You have: ? Bright red blood or blood clots in your pee. ? Severe pain or discomfort. ? Pain in your abdomen. ? Swelling in your legs. These symptoms may be an emergency. Get help right away. Call 911. ??? Do not wait to see if the symptoms will go away. ??? Do not drive yourself to the hospital. This information is not intended to replace advice given to you by your health care provider. Make sure you discuss any questions you have with your health care provider. Document Revised: 01/05/2023 Document Reviewed: 01/05/2023 [employer] Patient Education ? 2023 [employer]. Laser Therapy for Kidney Stones Laser therapy for kidney stones is a procedure to break up rock-like masses that form inside the kidneys (kidney stones). It is done using a device that beams a strong light (laser) on the kidney stones. This breaks the stones up into small pieces. These small pieces may leave your body when you pee (urinate) or may be taken out during the procedure. You may need laser therapy if you have kidney stones that are painful or that are stopping you from being able to pee. Tell a health care provider about: ??? Any allergies you have. ??? All medicines you are taking, including vitamins, herbs, eye drops, creams, and fndm-ddm-nyurmwg medicines. ??? Any problems you or family members have had with anesthesia. ??? Any bleeding problems you have. ??? Any surgeries you have had. ??? Any medical conditions you have. ??? Whether you are or may be . What are the risks? Your health care provider will talk with you about risks. These may include: ??? Infection. ??? Bleeding. ??? Allergic reactions to medicines. ??? Damage to: ? The part of your body that drains pee (urine) from the bladder (urethra). ? The bladder. ? The tube that connects the bladder to the kidneys (ureter). ??? Urinary tract infection (UTI). ??? Urethral stricture. This is when the urethra is narrowed by scarring. ??? Trouble peeing. ??? Blockage of the kidney. This may be caused by a piece of kidney stone. What happens before the procedure? When to stop eating and drinking Follow instructions from your provider about what you may eat and drink. Thes (more content not included)... [facility] 07-29-2024 History of Present illness Narrative Structural Heart Clinic Visit [facility], Heart & Vascular 07/29/2024 Ximena Archuleta, HEALTH INFORMATION ADMINISTRATOR [address], 3rd Floor Medical Office Building [facility] [address] Patient: Sapna Breen Date of : 1950 (73 y.o.) Referring Provider: No ref. 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 Angulo. Has been compliant with [...] CBC and BMP today. 2. Follow-up with [facility] as needed 3. Continue to follow with Dr. Austin for her primary cardiology needs. It has been a pleasure caring for this patient. Please don't hesitate to reach out to my office directly with any questions or concerns. Follow-up: Return if symptoms worsen or fail to improve. Ximena Archuleta, MSN, BRISKET PULLER, HEALTH INFORMATION ADMINISTRATOR [facility] P:[phone] F:[phone] History of Present Illness: Sapna Breen is [...] No increased bleeding from the access site. hot plate plywood press operator was Dr. Angulo with co-nuclear reactor operator Dr. Mariscal DELMAR physician, Dr. Antonio. She is here for a 2-year post LAAO Watchman follow-up. Primary nib inspector is Dr. Austin. Objective Review of Systems: All systems were reviewed and noted to be negative unless otherwise stated in HPI. Past Medical History: Diagnosis Date A-fib (HCC) Hyperlipidemia Hypertension Kidney stone Past Surgical History: Procedure Laterality Date BREAST SURGERY SECTION EP - INTERVENTION N/A 09/14/2022 Procedure: Left Atrial Appendage Closure; Surgeon: Pollo Angulo MD; Location: [facility] BAT LATHE OPERATOR; Service: Cardiovascular History reviewed. 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 Has been compliant with [...] CBC and BMP today. 2. Follow-up with [facility] as needed 3. Continue to follow with Dr. Austin for her primary cardiology needs. It has been a pleasure caring for this patient. Please don't hesitate to reach out to my office directly with any questions or concerns. Follow-up: Return if symptoms worsen or fail to improve. Ximena Archuleta, MSN, BRISKET PULLER, HEALTH INFORMATION ADMINISTRATOR [facility] P:[phone] F:[phone] ----- History of Present Illness: Sapna Breen [...] No increased bleeding from the access site. hot plate plywood press operator was Dr. Angulo with co-nuclear reactor operator Dr. Mariscal DELMAR physician, Dr. Antonio. She is here for a 2-year post LAAO Watchman follow-up. Primary nib inspector is Dr. Austin. Objective Review of Systems: All systems were reviewed and noted to be negative unless otherwise stated in HPI. Past Medical History: Diagnosis Date A-fib (HCC) Hyperlipidemia Hypertension Kidney stone Past Surgical History: Procedure Laterality Date BREAST SURGERY SECTION EP - INTERVENTION N/A 09/14/2022 Procedure: Left Atrial Appendage Closure; Surgeon: Pollo Angulo MD; Location: [facility] BAT LATHE OPERATOR; Service: Cardiovascular History reviewed. No pertinent family [...] 57 Ht 5' (more content not included)... [facility] 07-29-2024 Instructions Familia Roman RN - 07/29/2024 10:02 AM EDT How to contact your team Provider Pollo Angulo MD Nurse Familia Roman RN [phone] In case of an emergency please call 911 Refills When in need of a refill, please call your care team, or the office at [phone] Please include medication name, pharmacy name, and specify 30 or 90 day supply. Please check with your pharmacy within 24 hours of request for your refill. You must follow up as directed to continue current refills. Thank you documented in this encounter [facility] 06-23-2024 Hospital Discharge instructions Patient Education 06/23/2024 10:38:02 Kidney Stones, Mrtr-nh-Rfho Kidney Stones Kidney stones are rock-like masses [...] Follow these instructions at home: Medicines Take dqhw-isy-cesbaok and prescription medicines only as told by [...] provider. Document Revised: 12/29/2022 Document Reviewed: 12/29/2022 [employer] Patient Education 2023 [employer]. Follow Up Care 02/21/2024 14:26:57 With:DOREEN STEVE, ANAI Gottlieb, URL Address: [address] [place] [address] When:Within 6 Month(s) [facility]24 Note Patient Education Urology Kidney Stones [...] these instructions at home: Medicines ??? Take juju-qxu-klbdicv and prescription medicines only as told by [...] provider. Document Revised: 12/29/2022 Document Reviewed: 12/29/2022 Else[employer] Patient Education ? 2023 [employer]. [facility] 12-24-2023 Evaluation + Plan note Diagnostic Tests PendingUrine Culture 12/24/23 [facility] 11-16-2023 Hospital Discharge instructions Patient Education [...] include: ?8 oz (237 mL) of milk, glznrja-erybwyprpqgd-wetqp milk, and calcium-fortifiedfruit juice. Calcium-fortified means that [...] ?Spinach (cooked), rhubarb, beets, sweet potatoes, and Citizen [place] chard. ?Peanuts. ?Potato chips, nauruan fries, and baked potatoes with skin on. ?Nuts and nut products. ?Chocolate. If you regularly take a diuretic medicine, make sure to eat at least 1 or 2 servings of fruits or vegetables that are high in potassium each day. These include: ?Avocado. ?Banana. ?Marble, prune, carrot, or tomato juice. ?Baked potato. [...] magnesium, fish oil, or vitamin B6. Take lwwb-jkr-fmsohky and prescription medicines only as told by [...] Casseroles. Pizza. Lasagna. Frozen meals. Potato chips. Tunisian fries. The items listed above may not [...] provider. Document Revised: 08/17/2022 Document Reviewed: 08/17/2022 [employer] Patient Education 2022 [employer]. Follow Up Care 11/17/2022 10:51:02 With:SANDRA SAMSON, Rachel Peña, URL Address: [address] [place] [address]- When: Unknown [facility] 11-16-2023 Note Patient Education Nephrology Dietary [...] ? 8 oz (237 mL) of milk, lhgzmiz-wgtorgwssmtz-vwhsb milk, and calcium-fortifiedfruit juice. Calcium-fortified means that [...] Spinach (cooked), rhubarb, beets, sweet potatoes, and Citizen [place] chard. ? Peanuts. ? Potato chips, nauruan fries, and baked potatoes with skin on. ? Nuts and nut products. ? Chocolate. ? If you regularly take a diuretic medicine, make sure to eat at least 1 or 2 servings of fruits or vegetables that are high in potassium each day. These include: ? Avocado. ? Banana. ? Marble, prune, carrot, or tomato juice. ? Baked [...] fish oil, or vitamin B6. ? Take ghud-ctb-iumuwti and prescription medicines only as told by your health care provider. These include suppleme (more content not included)... [facility] 09-07-2023 History of Present illness Narrative Structural Heart Clinic Visit [facility] 09/07/2023 Ximena Archuleta, HEALTH INFORMATION ADMINISTRATOR [address] [facility] [address] Patient: Sapna Breen Date of : 1950 (72 y.o.) Referring Provider: No ref. 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 Angulo. Has been compliant with [...] 1 year (around 09/06/2024). Ximena Archuleta, MSN, BRISKET PULLER, HEALTH INFORMATION ADMINISTRATOR [facility] P:[phone] F:[phone] History of Present Illness: Sapna Breen is [...] No increased bleeding from the access site. hot plate plywood press operator was Dr. Angulo with co-nuclear reactor operator Dr. Mariscal DELMAR physician, Dr. Antonio. She is here for a 1-year post LAAO Watchman follow-up. Primary nib inspector is Dr. Austin. Objective Review of Systems: All systems were reviewed and noted to be negative unless otherwise stated in HPI. Past Medical History: Diagnosis Date A-fib (HCC) Hyperlipidemia Hypertension Kidney stone Past Surgical History: Procedure Laterality Date BREAST SURGERY SECTION EP - INTERVENTION N/A 09/14/2022 Procedure: Left Atrial Appendage Closure; Surgeon: Pollo Angulo MD; Location: [facility] BAT LATHE OPERATOR; Service: Cardiovascular History reviewed. No pertinent family [...] TOTAL (0-100): __100___ documented in this encounter [facility] 08-27-2023 Instructions Familia Roman RN - 08/27/2023 10:15 AM EDT How to contact your team Provider Pollo Angulo MD Nurse Familia Roman RN [phone] In case of an emergency please call 911 Refills When in need of a refill, please call your care team, or the office at [phone] Please include medication name, pharmacy name, and specify 30 or 90 day supply. Please check with your pharmacy within 24 hours of request for your refill. You must follow up as directed to continue current refills. 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 Angulo. Has been compliant with [...] 6 months (around 09/18/2023). Ximena Archuleta, MSN, BRISKET PULLER, HEALTH INFORMATION ADMINISTRATOR [facility] P:[phone] F:[phone] History of Present Illness: Sapna Breen is [...] No increased bleeding from the access site. hot plate plywood press operator was Dr. Angulo with co-nuclear reactor operator Dr. Mariscal DELMAR physician, Dr. Antonio. She is here for a 6-month post LAAO Watchman follow-up. Primary nib inspector is Dr. Austin. Objective Review of Systems: All systems were reviewed and noted to be negative unless otherwise stated in HPI. Past Medical History: Diagnosis Date A-fib (HCC) Hyperlipidemia Hypertension Kidney stone Past Surgical History: Procedure Laterality Date BREAST SURGERY SECTION EP - INTERVENTION N/A 09/14/2022 Procedure: Left Atrial Appendage Closure; Surgeon: Pollo Angulo MD; Location: [facility] BAT LATHE OPERATOR; Service: Cardiovascular History reviewed. No pertinent family [...] of allergies, medications, Yung Index, and Modified Nunu Scale has been completed. ____ will be meeting with . The patient has been provided with an educational folder including a [employer] booklet regarding understanding Afib, left atrial appendage, [...] TOTAL (0-100): ___100___ documented in this encounter [facility] 03-20-2023 Instructions Jack Escobar RN - 03/20/2023 9:21 AM EDT ..How to contact your Care Team: Provider: Pollo Angulo MD Nurse: Jack Escobar RN In case of an emergency please call 911. REFILLS: When in need for refills please call your care team or the office at [phone]. Please include medication name, pharmacy name, and specify 30-day or 90-day supply. Please check with your pharmacy within 24 hours of request for your refill. You must follow up as directed to continue current refills. Thank you documented in this encounter [facility] 03-02-2023 History of Present illness Narrative Returned call to pt regarding VM received requesting call back. Sapna states she has a CT scan scheduled 03/15 and wanted to make sure lab orders were in for pre-scan blood work needed. Informed Sapna orders are already in for labs needed prior to the scan and she can go to any [facility] lab to have drawn prior to the . Verbalizes understanding and thankful for call. documented in this encounter [facility] 11-17-2022 Hospital Discharge instructions Patient Education 11/17/2022 10:40:30 Kidney Stones, Xzmy-ml-Nnzi Kidney Stones Kidney stones are rock-like masses [...] Follow these instructions at home: Medicines Take hrbv-fzb-xsetpxz and prescription medicines only as told by [...] provider. Document Revised: 01/09/2022 Document Reviewed: 01/09/2022 [employer] Patient Education 2022 [employer]. Follow Up Care 08/23/2022 12:57:26 With:SANDRA SAMSON, Rachel Peña, URL Address: [address] [place] [address]- When:Within 1 Year(s) Comments:[employer] [facility] 11-06-2022 History of Present illness Narrative Structural Cardiology Returning Patient Clinic Visit [facility] Heart [facility] Vascular 11/06/2022 Ximena Archuleta, HEALTH INFORMATION ADMINISTRATOR [address] [facility] Medical Office [facility] [address] [facility], physician's office 11/06/2022 Patient: Sapna Breen Date of : 1950 (71 y.o.) Referring Provider: No ref. provider found PCP: Medardo Robles MD Chief Complaint: Follow-up (Patient has no new cardiac concerns today ) Date of Service: 11/06/2022 Assessment and Plan: Atrial fibrillation Status post LAAO with watchman 09/14/2022 with a left atrial appendage occluder 27 mm device bulk materials handling plant operator Dr. Adele Hernandez She has been [...] any issue. She does follow with primary nib inspector, Dr. Austin. Plan: 1. She will continue [...] No follow-ups on file. Ximena Archuleta, MSN, BRISKET PULLER, HEALTH INFORMATION ADMINISTRATOR [facility] P:[phone] F:[phone] History of Present Illness: Sapna Breen is [...] No increased bleeding from the access site. hot plate plywood press operator was Dr. Angulo with co-nuclear reactor operator Dr. Mariscal DELMAR physician, Dr. Antonio [...] Closure; Surgeon: Pollo Angulo MD; Location: [facility] LATHE OPERATOR; Service: Cardiovascular History reviewed. No pertinent family [...] TOTAL (0-100): __100____ documented in this encounter [facility] 10-26-2022 Instructions Jack Escobar RN - 10/26/2022 1:36 PM EDT ..How to contact your Care Team: Provider: Pollo Angulo MD Nurse: Jack Escobar RN In case of an emergency please call 911. REFILLS: When in need for refills please call your care team or the office at [phone]. Please include medication name, pharmacy name, and specify 30-day or 90-day supply. Please check with your pharmacy within 24 hours of request for your refill. You must follow up as directed to continue current refills. Thank you Post LAAO CT You are scheduled for a post LAAO CT scan, on ____03/15 at [facility]. Please arrive at the Short Term Care Unit at 845a . Your physician requires blood work prior to your scan, we will place an order for the blood work that may be performed at the [facility] lab of your choice within [...] are properly hydrated. documented in this encounter [facility] 09-15-2022 Hospital course Narrative DISCHARGE SUMMARY Patient: Sapna Breen Account: [id number] Admitted: 09/14/2022 Discharge Date/Time: 09/15/2022 Clinical Summary [...] No increased bleeding from the access site. hot plate plywood press operator was Dr. Angulo with co-nuclear reactor operator Dr. Mariscal DELMAR physician, Dr. Antonio [...] Your Medications These medications were sent to [id number] - [place], [place] - [address] [facility] [facility] [address] clopidogreL 75 mg tablet Physician(s) Family: Medardo Robles MD, , Address: [address] [facility] [address] Follow Up: Kathya Archuleta CNP 11/06/22 10:30 a.m. Patient instructions, including activity, were given to the patient/family at discharge. Please see the After Visit Summary in the medical record for details. Time spent on discharge: < 30 minutes Completed by: Mandie Zayas on 09/15/22, 9:35 AM documented in this encounter [facility] 09-14-2022 Note Formatting of this n ote might be different from the original. Problem: Actual or potential alteration in health Goal: Absence of healthcare acquired conditions Outcome: Partially Met Goal: Knowledge of Interdisciplinary Plan of Care Outcome: Partially Met Goal: Knowledge of Enviroment Outcome: Partially Met [facility] 09-14-2022 Miscellaneous Notes Problem: Actual or [...] Outcome: Partially Met documented in this encounter [facility] 09-14-2022 Note Formatting of this n ote might be different from the original. Problem: Actual or potential alteration in health Goal: Absence of healthcare acquired conditions Outcome: Partially Met Goal: Knowledge of Interdisciplinary Plan of Care Outcome: Partially Met Goal: Knowledge of Enviroment Outcome: Partially Met [facility] 09-14-2022 Note CARDIAC CATHETERIZAT ION Date of Procedure: 09/14/22 Retail Wireless Sales Consultant and Supervising Physician: Pollo Angulo MD Chrome Tanning Drum Operator: Austin Mariscal MD Name of Procedures: Percutaneous transcatheter closure of the left atrial appendage with Watchman FLX left atrial appendage occluder 27 mm device (CPT Code 07194, ICD 10 procedure code 16N41ME) for the treatment of a patient with unspecified (I40.9) atrial fibrillation. (DRG code 273 or 274) Medications: General anesthesia provided by Dr. Paolo Cannon MD Indication for Procedure: A 71 y.o. female with history of atrial fibrillation. The patient has a CHADS score of 3 and cannot take care home anticoagulation due to hematuria Prior to implantation of the device the patient met with Dr. Faustino Yi MD to discuss non-interventional, pharmacologic options to stroke prevention. No qualified Resident was available to assist in the case therefore due to the complexity,Austin Mariscal MD was utilized as my captain's assistant Description of Procedure: Following informed consent, [...] exchanged out the Proglide sheath for a [place] sheath with a transseptal needle. Under fluoroscopic and echocardiographic images, the Danielito versacross transseptal needle was used to perform transseptal puncture across the inter-atrial septum. The [place] sheath was advanced into the left atrium and the dilator to dilate the septum and then removed from the body. Heparin was then administered for full anticoagulation with intermittent monitoring of ACT. The [place] sheath was exchanged out for a 14-Tunisian Atrite Watchman sheath, which was placed in the left atrium. A 6-Tunisian pigtail catheter was advanced into the sheath and the stiff wire was then removed. Under fluoroscopic and echocardiographic guidance, the pigtail catheter was then placed selectively in the left atrial appendage and multiple angiographic images were obtained. We then advanced the 14-Tunisian Atrite sheath into the left atrial appendage [...] of leak, the device was released. The 14-Tunisian sheath was removed and hemostasis was achieved [...] left atrial appendage occluder 27 mm; LOT# [id number] Summary: The following findings were noted on [...] and interpretation verified by Pollo Angulo MD [facility] 09-14-2022 Note CARDIAC CATHETERIZAT ION Date of Procedure: 09/14/22 Retail Wireless Sales Consultant and Supervising Physician: Pollo Angulo MD Chrome Tanning Drum Operator: Austin Mariscal MD Name of Procedures: Percutaneous transcatheter closure of the left atrial appendage with Watchman FLX left atrial appendage occluder 27 mm device (CPT Code 72801, ICD 10 procedure code [id number]) for the treatment of a patient with unspecified (I40.9) atrial fibrillation. (DRG code 273 or 274) Medications: General anesthesia provided by Dr. Paolo Cannon MD Indication for Procedure: A 71 y.o. female with history of atrial fibrillation. The patient has a CHADS score of 3 and cannot take care home anticoagulation due to hematuria Prior to implantation of the device the patient met with Dr. Faustnio Yi MD to discuss non-interventional, pharmacologic options to stroke prevention. No qualified Resident was available to assist in the case therefore due to the complexity,Austin Mariscal MD was utilized as my captain's assistant Description of Procedure: Following informed consent, [...] exchanged out the Proglide sheath for a [place] sheath with a transseptal needle. Under fluoroscopic and echocardiographic images, the Danielito versacross transseptal needle was used to perform transseptal puncture across the inter-atrial septum. The [place] sheath was advanced into the left atrium and the dilator to dilate the septum and then removed from the body. Heparin was then administered for full anticoagulation with intermittent monitoring of ACT. The [place] sheath was exchanged out for a 14-Tunisian Atrite Watchman sheath, which was placed in the left atrium. A 6-Tunisian pigtail catheter was advanced into the sheath and the stiff wire was then removed. Under fluoroscopic and echocardiographic guidance, the pigtail catheter was then placed selectively in the left atrial appendage and multiple angiographic images were obtained. We then advanced the 14-Tunisian Atrite sheath into the left atrial appendage [...] of leak, the device was released. The 14-Tunisian sheath was removed and hemostasis was achieved [...] left atrial appendage occluder 27 mm; LOT# [id number] Summary: The following findings were noted on [...] and interpretation verified by Pollo Angulo MD [facility] 09-14-2022 History of Present illness [...] TOTAL (0-100): __100____ documented in this encounter [facility] 09-14-2022 Attending History and physical note INTERVAL HISTORY AND PHYSICAL Patient Name: Sapna Breen Admit Date: [id number] MR #: [id number] : 1950 The H&P has been reviewed [...] acute renal insufficiency, need for emergency surgery, NV, stroke, or cardiac arrest/. Patient voiced understanding and agreed to proceed. Pollo Angulo MD 09/14/2022 10:09 AM Source Note - Pollo Angulo MD - 08/22/2022 8:14 AM EDT [facility] Consult Heart & Vascular [facility] 08/22/2022 Pollo Angulo MD [address] [place] [address] Medical Office [facility] [address] Patient: Sapna Breen [...] rate is well controlled on beta-brice. Her [id number] score is 3 giving an annual stroke [...] limited to risk of bleeding infection stroke NV or need for emergent open heart surgery. [...] no past medical history of any CAD NV stroke diabetes or known peripheral arterial disease Non-smoker lifelong Family history of CAD in her brother who had NV and mother had some heart disease that [...] found for: CHOL, LDLCALC, LDLDIRECT, TRIG, HDL [facility] 09-14-2022 History and physical note INTERVAL HISTORY AND PHYSICAL Patient Name: Sapna Breen Admit Date: [id number] MR #: [id number] : 1950 The H&P has been reviewed [...] acute renal insufficiency, need for emergency surgery, NV, stroke, or cardiac arrest/. Patient voiced understanding and agreed to proceed. Pollo Angulo MD 09/14/2022 10:09 AM Source Note - Pollo Angulo MD - 08/22/2022 8:14 AM EDT [facility] Consult Heart & Vascular [facility] 08/22/2022 Pollo Angulo MD [address] [facility] Medical Office [facility] [address] Patient: Sapna Breen [...] rate is well controlled on beta-brice. Her [id number]-MYPq score is 3 giving an annual stroke [...] limited to risk of bleeding infection stroke NV or need for emergent open heart surgery. [...] no past medical history of any CAD NV stroke diabetes or known peripheral arterial disease Non-smoker lifelong Family history of CAD in her brother who had NV and mother had some heart disease that she is unsure of Objective Imaging: I independently reviewed the EKG and agree with the interpretation(s) with the following comments. NSR ECG 12 lead Final Result by Arron Vizcarra MA (08/22/2022 075) Past Medical History: Diagnosis Date A-fib (HCC) [...] LDLDIRECT, TRIG, HDL documented in this encounter [facility] 09-14-2022 Hospital Discharge instructions Jack Escobar RN - 09/14/2022 8:52 AM EDT [facility] Discharge Instructions Your 45 day follow up clinic appointment with cardiology nurse practitioner Jeny Archuleta is scheduled for 11/06/22 at 1030am at the [facility], 3rd floor Heart and Vascular Clinic. Please arrive 15 minutes prior to your appointment time. Your 6 month post procedure office visit with cardiology nurse practitioner Jeny Archuleta has been scheduled for 10/31/23 at 930am at the [facility], 3rd floor Heart and Vascular Clinic. Please arrive 15 minutes prior to your appointment time. Your [address] scan has been scheduled for 03/15/23. Please arrive at the [facility] at 845am. Post LAAO CT Instructions: Your physician requires blood work prior to your scan, we will place an order for the blood work that may be performed at the [facility] lab of your choice within [...] call, please call in for an update. ([phone]) Around 45 days: You will have a [...] after office hours or weekends, please call [phone] and ask for the nib inspector long chain beamer for assistance. During the week days, you may call CHRISTI Santiago at the office at [phone]. documented in this encounter [facility] 09-08-2022 History of Present illness Narrative Pt called to review procedure with Dr. Adele PATTERSON with watchman device scheduled next week 09/14. All information listed below reviewed. Verbalizes understanding and denies any further questions. Thankful for call. Please complete required pre-procedure blood work on 09/11 or 09/12 at the [place] [facility] main floor lab. No fasting is required for this blood work. 3-MARION Closure PRE-PROCEDURE INSTRUCTIONS Date: Check-In Time: 9am The check in time is the time that you need to be at the hospital. This time allows adequate preparation time prior to your procedure. It is not the time of the procedure. LOCATION: [facility]. Please park in the garage next to the medical office building. If needed, hemmer chainstitch parking is available at the front entrance [...] by your nurse. documented in this encounter [facility] 08-28-2022 History of Present illness Narrative Pt called to review LAAO procedure information listed below. Verbalizes understanding and denies any further questions. 1-Your echocardiogram is scheduled for 09/05 at 2pm at the [facility], 3rd floor heart and vascular clinic. 2-Pre-CT You are scheduled for a pre-CT scan, on 09/05 at [facility]. Please arrive at the Short Term [...] pre-procedure blood work on 09/05 at the [place] [facility] main floor lab. No fasting is required for this blood work. 3-MARION Closure PRE-PROCEDURE INSTRUCTIONS Date: ____09/14 Check-In Time: 9am The check in time is the time that you need to be at the hospital. This time allows adequate preparation time prior to your procedure. It is not the time of the procedure. LOCATION: [facility]. Please park in the garage next to the medical office building. If needed, hemmer chainstitch parking is available at the front entrance [...] skin scrub at your local pharmacy called [facility]-you can get this over the counter, you can ask the pharmacist for direction on where to find this in the store. Please wash with this the night prior to your surgery and the morning of, but avoid your face and genital areas. 5.You must be accompanied by someone who is able to drive you home after the procedure. documented in this encounter [facility] 08-25-2022 History of Present illness Narrative [...] thankful for call. documented in this encounter [facility] 08-22-2022 History of Present illness Narrative Structural [facility] Disease Clinic Consult Heart & Vascular [facility] 08/22/2022 Pollo Angulo MD [address] [facility] [place] [address] Patient: Sapna Breen Date of : [...] rate is well controlled on beta-brice. Her [id number] score is 3 giving an annual stroke [...] limited to risk of bleeding infection stroke NV or need for emergent open heart surgery. [...] no past medical history of any CAD NV stroke diabetes or known peripheral arterial disease Non-smoker lifelong Family history of CAD in her brother who had NV and mother had some heart disease that she is unsure of Objective Imaging: I independently reviewed the EKG and agree with the interpretation(s) with the following comments. NSR ECG 12 lead Final Result by Arron Vizcarra MA (08/22/2022 0545) Past Medical History: Diagnosis Date A-fib (HCC) [...] LDLDIRECT, TRIG, HDL documented in this encounter [facility] 08-18-2022 Instructions Jack Escobar RN - 08/18/2022 9:07 AM EDT Please complete required pre-procedure blood work on at the [facility] main floor lab. No fasting is required for this blood work. 1-Your echocardiogram is scheduled for at the [facility], 3rd floor heart and vascular clinic. 2-Pre-CT You are scheduled for a pre-CT scan, on at [facility]. Please arrive at the Short Term [...] not the time of the procedure. LOCATION: [facility]. Please park in the garage next to the medical office building. If needed, hemmer chainstitch parking is available at the front entrance [...] You may reach our nurse line at [phone] for any questions or concerns. Please leave a message and we will return your call within 24 hours, Sunday-Sunday. For billing questions, please contact your insurance and/or our central billing office at [phone]. Thank you for choosing [facility], we look forward to caring for you. documented in this encounter [facility] 08-16-2022 History of Present illness Narrative [facility] referral received from Dr. Yi for LAREX eval. Pt scheduled 08/22 w/ Dr. Angulo Records requested from pt PCP and [facility] (last echo 2015), Urology notes requested and labs. documented in this encounter [facility] Evaluation + Plan note Future Appointments Appointment Date:11/16/2023 09:45:00 AM Scheduled Provider:Rachel FLORES MD Location:[facility] Appointment Type:URO Office Visit Diagnostic Tests PendingElectrolyte Panel 11/17/22 [facility] Evaluation + Plan note Future Appointments Appointment Date:12/22/2024 09:40:00 AM Scheduled Provider:ANAI GAITAN PA-C Location:[facility] Appointment Type:URO Office Visit [facility] Evaluation + Plan note Future Appointments Appointment Date:12/22/2024 09:40:00 AM Scheduled Provider:ANAI GAITAN PA-C Location:[facility] Appointment Type:URO Office Visit Diagnostic Tests PendingCalculi Analysis Urinary 06/23/24 [facility] Evaluation note Diagnosis Dysuria documented in this encounter [facility] Phone: evaluation note* Diagnosis Visit for screening mammogram Other screening mammogram documented in this encounter [facility] Phone: evaluation note* Diagnosis Pain and swelling of toe of left foot documented in this encounter [facility] Phone: evaluation note* Diagnosis Dysuria Acute cystitis with hematuria Acute cystitis documented in this encounter [facility] Phone: evaluation note* Diagnosis Visit for screening mammogram Other screening mammogram documented in this encounter [facility] Phone: evaluation note* Diagnosis Atrial fibrillation, unspecified type (HCC)- Primary Essential hypertension Unspecified essential hypertension [facility] Diagnosis Atrial fibrillation, unspecified type (HCC)- Primary Atrial fibrillation, chronic (HCC) [facility] Diagnosis Atrial fibrillation, unspecified type (HCC)- Primary [facility]* Diagnosis Pre-op testing- Primary Unspecified pre-operative examination Atrial fibrillation, chronic (HCC) [facility]* Diagnosis Atrial fibrillation, chronic (HCC)- Primary documented in this encounter [facility] note* Diagnosis Presence of Watchman left atrial appendage closure device- Primary PAF (paroxysmal atrial fibrillation) (HCC) Atrial fibrillation documented in this encounter [facility] note* Diagnosis Dysuria documented in this encounter [facility] [employer] note* Diagnosis Atrial fibrillation, chronic (HCC)- Primary Presence of Watchman left atrial appendage closure device [facility] Diagnosis Atrial fibrillation, chronic (HCC)- Primary [facility] Diagnosis Atrial fibrillation, unspecified type (HCC)- Primary Presence of Watchman left atrial appendage closure device [facility] Diagnosis Atrial fibrillation, unspecified type (HCC)- Primary [facility]* Diagnosis Paroxysmal atrial fibrillation (HCC) Atrial fibrillation Mitral valve insufficiency, unspecified etiology Mixed hyperlipidemia Primary hypertension Unspecified essential hypertension Vitamin D deficiency disease Unspecified vitamin D deficiency [facility]* Diagnosis Paroxysmal atrial fibrillation (HCC) Atrial fibrillation Mitral valve insufficiency, unspecified etiology Mixed hyperlipidemia Primary hypertension Unspecified essential hypertension Vitamin D deficiency disease Unspecified vitamin D deficiency [facility] note* Diagnosis Paroxysmal atrial fibrillation (HCC) Atrial fibrillation Mitral valve insufficiency, unspecified etiology Mixed hyperlipidemia Primary hypertension Unspecified essential hypertension Vitamin D deficiency disease Unspecified vitamin D deficiency [facility]* Diagnosis Uric acid nephrolithiasis [facility]* Diagnosis Presence of Watchman left atrial appendage closure device- Primary PAF (paroxysmal atrial fibrillation) (HCC) Atrial fibrillation [facility] Narrative No data available for this section [facility] Hospital Discharge instructions No data available for this section [facility] progress note No data available for this section [facility] reason for visit Narrative* Auth/Cert Specialty Diagnoses / Procedures Referred By Sea palm Referred To Contact Diagnoses atrial fibrillation Procedures Left Atrial Appendage Closure Referral ID Status Reason Start Date Expiration Date Visits Re quested Visits Authorized [id number] 1 1 [facility] Summary Purpose Family History No Family [...] FoundDocuments on File Type Date Recorded 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 Advance Directives and Living Will Power of Edge Worker Latest Code Status on File Code Status Date Activated Date Inactivated Comments Full Code 06/14/2015 10:10 AM 06/14/2015 1:00 PM Full Code 06/14/2015 8:09 AM 06/14/2015 10:10 AM Full Code 12/10/2012 7:01 AM 12/10/2012 5:08 PM Documents on File Type Date Recorded 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 Advance Directives and Living Will Power of Edge Worker Latest Code Status on File Code Status Date Activated Date Inactivated Comments Full Code 06/14/2015 10:10 AM 06/14/2015 1:00 PM Full Code 06/14/2015 8:09 AM 06/14/2015 10:10 AM Full Code 12/10/2012 7:01 AM 12/10/2012 5:08 PM Documents on File Type Date Recorded 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 ACP-Advance Directive ACP-Power of Edge Worker Documents on File Type Date Recorded 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 ACP-Advance Directive ACP-Power of Edge Worker Healthcare Agents on File Name Relationship Healthcare Agent Relationship Communication Cledith Amburgey Spouse Primary Decision Maker [phone] (Home) Healthcare Agents on File Name Relationship Healthcare Agent Relationship Communication Cledith Amburgey Spouse Primary Decision Maker [phone] (Home) Healthcare Agents on File Name Relationship Healthcare Agent Relationship Communication Cledith Amburgey Spouse Primary Decision Maker Healthcare Agents on File Name Relationship Healthcare Agent Relationship Communication Cledith Amburgey Spouse Primary Decision Maker [phone] (Home) Latest Code Status on File Code [...] File Name Relationship Healthcare Agent Relationship Communication Ave Breen Spouse Primary Decision Maker Healthcare Agents on File Name Relationship Healthcare Agent Relationship Communication Ave Breen Spouse Primary Decision Maker Healthcare Agents on File Name Relationship Healthcare Agent Relationship Communication Ave Breen Spouse Primary Decision Maker Reason for Referral Status Reason Specialty Diagnoses / Procedures Referre d By Contact Referred To Contact Open Cardiology Diagnoses Essential hypertension Mitral valve insufficiency, unspecified etiology Atrial fibrillation, unspecified type (HCC) Procedures EKG 12 Lead Kyle Austin MD [address] [place] [address] Status Reason Specialty Diagnoses / Procedures Re ferred By Contact Referred To Contact Open Cardiology Diagnoses Elevated glucose Essential hypertension Hyperlipidemia, unspecified hyperlipidemia type Vitamin D deficiency disease Atrial fibrillation, unspecified type (HCC) Procedures EKG 12 Lead Kyle Austin MD [address] [place] [address] Status Reason Specialty Diagnoses / Procedures Referre d By Contact Referred To Contact Closed Radiology Diagnoses Visit for screening mammogram Procedures [facility] KRISSY DIGITAL SCREEN BILATERAL Medardo Robles MD [address] [place] [id number] Specialty Diagnoses / Procedures Referred By Contac t Referred To Contact Radiology Diagnoses Visit for screening mammogram Procedures [facility] KRISSY DIGITAL SCREEN BILATERAL Medardo Robles MD [address] [place] [id number] Referral ID Status Reason Start Date Expiration Date Visits Re quested Visits Authorized [id number] Closed 01/24/2022 01/24/2023 1 1 Specialty Diagnoses / Procedures Referred By Contac t Referred To Contact Cardiology Diagnoses Atrial fibrillation, unspecified type (HCC) Procedures ECG 12 lead Pollo Angulo MD [address] [place] [address] Referral ID Status Reason Start Date Expiration Date V isits Requested Visits Authorized [id number] Authorized 08/22/2022 08/22/2023 1 1 Specialty Diagnoses / Procedures Referred By Contac t Referred To Contact Radiology Diagnoses Atrial fibrillation, unspecified type (HCC) Procedures CT Pulmonary Vein With Reconstructions 3D Pollo Angulo MD [address] [place] [phone] Referral ID Status Reason Start Date Expiration Date V isits Requested Visits Authorized [id number] Authorized 08/28/2022 08/28/2023 1 1 Specialty Diagnoses / Procedures Referred By Contac t Referred To Contact Cardiology Diagnoses Atrial fibrillation, unspecified type (HCC) Atrial fibrillation, chronic (HCC) Procedures Echocardiogram complete Pollo Angulo MD [address] [place] [phone] Referral ID Status Reason Start Date Expiration Date V isits Requested Visits Authorized [id number] Authorized 08/28/2022 08/28/2023 1 1 Specialty Diagnoses / Procedures Referred By Contac t Referred To Contact Radiology Diagnoses Atrial fibrillation, chronic (HCC) Procedures CT Pulmonary Vein With Reconstructions 3D Pollo Angulo MD [address] [place] [phone] Referral ID Status Reason Start Date Expiration Date V isits Requested Visits Authorized [id number] Pending Review 03/16/2023 03/15/2024 1 1 Specialty Diagnoses / Procedures Referred By Contac t Referred To Contact Cardiology Diagnoses Atrial fibrillation, chronic (HCC) Procedures ECG 12 lead Ximena Archuleta CNP [address] [place] [address] Referral ID Status Reason Start Date Expiration Date V isits Requested Visits Authorized [id number] Authorized 11/06/2022 11/06/2023 1 1 Specialty Diagnoses / Procedures Referred By Contac t Referred To Contact Cardiology Diagnoses Atrial fibrillation, unspecified type (HCC) Procedures ECG 12 lead Ximena Archuleta, HEALTH INFORMATION ADMINISTRATOR [address] [place] [address] Referral ID Status Reason Start Date Expiration Date V isits Requested Visits Authorized [id number] Authorized 03/20/2023 03/19/2024 1 1 Specialty Diagnoses / Procedures Referred By Contac t Referred To Contact Cardiology Diagnoses Paroxysmal atrial fibrillation (HCC) Mitral valve insufficiency, unspecified etiology Mixed hyperlipidemia Primary hypertension Vitamin D deficiency disease Procedures EKG 12 Lead Kyle Austin MD [address] [place] [address] Referral ID Status Reason Start Date Expiration Date Visits Re quested Visits Authorized [id number] Open 04/19/2024 04/19/2025 1 1 Assessments Diagnosis [...] section and content) DATE CREATED AUTHOR 04/23/2018 [facility] DATE CREATED AUTHOR AUTHOR'S ORGANIZ ATION 07/21/2021 [facility] DATE CREATED AUTHOR AUTHOR'S ORGANIZ ATION 09/03/2022 [facility] DATE CREATED AUTHOR AUTHOR'S ORGANIZ ATION 09/11/2023 [facility] DATE CREATED AUTHOR AUTHOR'S ORGANIZ ATION 12/25/2023 Richard De La Rosa [facility] DATE CREATED AUTHOR AUTHOR'S ORGANIZ ATION 12/29/[address] [facility] DATE CREATED AUTHOR AUTHOR'S ORGANIZ ATION 06/20/2024 [facility] DATE CREATED AUTHOR AUTHOR'S ORGANIZ ATION 07/30/2024 [facility] DATE CREATED AUTHOR AUTHOR'S ORGANIZ ATION 08/02/2024 [facility] DATE CREATED AUTHOR AUTHOR'S ORGANIZ ATION 01/13/[address] [facility] DATE CREATED AUTHOR AUTHOR'S ORGANIZ ATION [facility]/16/20[facility] Reason for Visit (unrecogniz ed section and content) Status Reason Specialty Diagnoses / Procedures Referre d By Contact Referred To Contact Closed Radiology Diagnoses Visit for screening mammogram Procedures [facility] KRISSY DIGITAL SCREEN BILATERAL Medardo Robles MD [address] [place] [id number] Specialty Diagnoses / Procedures Referred By Contac t Referred To Contact Radiology Diagnoses Visit for screening mammogram Procedures [facility] KRISSY DIGITAL SCREEN BILATERAL Medardo Robles MD [address] [place] [address] Referral ID Status Reason Start Date Expiration Date Visits Re quested Visits Authorized [id number] Closed 01/24/2022 01/24/2023 1 1 Reason Comments [...] Care Teams (unrecognized sec tion and content) Glove Sewer Relationship Specialty Start Date End Date Medardo Robles MD [address] [place] [id number] PCP - General Family Medicine 06/10/13 Glove Sewer Relationship Specialty Start Date End Date Medardo Robles MD [address] [place] [id number] PCP - General Family Medicine 06/10/13 Glove Sewer Relationship Specialty Start Date End Date Medardo Robles MD [address] [place] [address] PCP - General Family Medicine 06/10/13 Glove Sewer Relationship Specialty Start Date End Date Medardo Robles MD [address] [place] [address] PCP - General Family Medicine 06/10/13 Glove Sewer Relationship Specialty Start Date End Date Medardo Robles MD [address] [place] [address] PCP - General Family Medicine 08/15/22 Glove Sewer Relationship Specialty Start Date End Date Medardo Robles MD [address] [place] [address] PCP - General Family Medicine 08/15/22 Glove Sewer Relationship Specialty Start Date End Date Medardo Robles MD [address] [place] [address] PCP - General Family Medicine 08/15/22 Glove Sewer Relationship Specialty Start Date End Date Medardo Robles MD [address] [facility] [place] [address] PCP - General Family Medicine 08/15/22 Glove Sewer Relationship Specialty Start Date End Date Medardo Robles MD [address] [facility] [place] [address] PCP - General Family Medicine 08/15/22 Glove Sewer Relationship Specialty Start Date End Date Medardo Robles MD [address] [place] [address] PCP - General Family Medicine 08/15/22 Glove Sewer Relationship Specialty Start Date End Date Medardo Robles MD [address] [place] [address] PCP - General Family Medicine 08/15/22 Glove Sewer Relationship Specialty Start Date End Date Medardo Robles MD [address] [place] [address] PCP - General Family Medicine 08/15/22 Glove Sewer Relationship Specialty Start Date End Date Medardo Robles MD [address] [place] [phone] PCP - General Family Medicine 08/15/22 Glove Sewer Relationship Specialty Start Date End Date Medardo Robles MD [address] [place] [address] PCP - General Family Medicine 08/15/22 Glove Sewer Relationship Specialty Start Date End Date Medardo Robles MD [address] [place] [address] PCP - General Family Medicine 08/15/22 Glove Sewer Relationship Specialty Start Date End Date Medardo Robles MD [address] [place] [address] PCP - General Family Medicine 06/10/13 Glove Sewer Relationship Specialty Start Date End Date Medardo Robles MD [address] [place] [address] PCP - General Family Medicine 08/15/22 Glove Sewer Relationship Specialty Start Date End Date Medardo Robles MD [address] [place] [address] PCP - General Family Medicine 08/15/22 Glove Sewer Relationship Specialty Start Date End Date Medardo Robles MD [address] [place] [address] PCP - General Family Medicine 08/15/22 Glove Sewer Relationship Specialty Start Date End Date Medardo Robles MD [address] [place] [phone] PCP - General Family Medicine 08/15/22 Glove Sewer Relationship Specialty Start Date End Date Medardo Robles MD [address] [place] [phone] PCP - General Family Medicine 06/10/13 Glove Sewer Relationship Specialty Start Date End Date Medardo Robles MD [address] [place] [phone] PCP - General Family Medicine 06/10/13 Glove Sewer Relationship Specialty Start Date End Date Medardo Robles MD [address] [place] [address] PCP - General Family Medicine 06/10/13 Glove Sewer Relationship Specialty Start Date End Date Medardo Robles MD [address] [place] [address] PCP - General Family Medicine 06/10/13 Glove Sewer Relationship Specialty Start Date End Date Medardo Robles MD [address] [place] [address] PCP - General Family Medicine 06/10/13 Glove Sewer Relationship Specialty Start Date End Date Medardo Robles MD [address] [place] [address] PCP - General Family Medicine 08/15/22 Scheduled [...] Once, On Sun09/14/22 at 1700, For 1 dose, Initiate 6 [...] at 0900, DO NOT CRUSH OR CHEW. 08 (Given - Provid er: Maty Damian RN) hydroCHLOROthiazide (HYDRODIURIL) tablet 25 mg 25 mg, Oral, Daily, First dose on Sun09/14/22 at 1700 162 (Given - Provider: Maty Damian RN) 08 (Given - Provider: Maty Damian RN) lisinopriL (PRINIVIL,ZESTRIL) tablet 5 mg 5 mg, Oral, Daily, First dose on Sun09/15/22 at 0900 0829 (Given - Provid er: Maty Damian RN) metoprolol tartrate (LOPRESSOR) tablet 50 mg 50 mg, Oral, 2 times daily, First dose on Sun09/14/22 at 2100 2020 (Given - Provider: Kristin Nguyen RN) 08 (Given - Provider: Maty Damian RN) potassium chloride SA (K-DUR,KLOR-CON) CR tablet 20 mEq 20 mEq, Oral, Daily, First dose on Sun09/14/22 at 1700, DO NOT CRUSH OR CHEW (if instructed may dissolve tablet(s) in liquid) DO NOT ADMINISTER DISSOLVED TABLET VIA SURGICALLY PLACED TUBE OR TUBE less than 14 Tunisian. To administer dissolved tablet(s) mix with 4 [...] BE BASED ON THE PRIMARY CLINICAL RECORDS. [employer] provides no warranty or guarantee of the accuracy or completeness of information in this document.
[2025-01-23 14:26] LABS: Hematocrit 40.1 % (36.0-48.0); Hemoglobin 13.5 g/dL (12.0-16.0); Immature Granulocytes Abs Auto 0.02 10^3/uL (0.00-0.03); Immature Granulocytes Pct Auto 0.4 % (0.0-0.5); Lymphocytes Absolute Auto 1.8 10^3/uL (1.2-3.8); Mean Corpuscular HGB Conc 33.7 g/dL (29.9-35.2); Mean Corpuscular Hemoglobin 31.5 pg (26.7-34.0); Mean Corpuscular Volume 93.5 fL (81.0-99.0); Platelet Count 221 10^3/uL (150-450); Red Blood Count 4.29 10^6/uL (4.20-5.40); White Blood Count 5.2 10^3/uL (4.0-11.0)
[2025-01-23 14:30] LABS: Anion Gap 14.7; Blood Urea Nitrogen 11.0 mg/dL (7.0-18.0); Calcium 10.1 mg/dL (8.5-10.1); Carbon Dioxide 24.7 mmol/L (21.0-32.0); Chloride 105 mmol/L (98-107); Estimated GFR (African America >60 (>=60 mL/min/1.73m^2); Estimated GFR (Non-African Ame >60 (>=60 mL/min/1.73m^2); Glucose 116 mg/dL (74-106); Potassium 3.4 mmol/L (3.5-5.1); Sodium 141 mmol/L (136-145)
[2025-01-23 14:33] LABS: INR 1.08; Partial Thromboplastin Time 25.2 sec (22.3-36.2); Prothrombin Time 11.4 sec (9.0-11.6)
== END 2025-01-23 13:15 | disposition home or self-care (01) ==
PROVIDERS: Visit Provider Urology
DX: Z01.810 Encounter for preprocedural cardiovascular examination (principal); Z01.812 Encounter for preprocedural laboratory examination; Z01.818 Encounter for other preprocedural examination; N20.0 Calculus of kidney
CPT/HCPCS: 80048; 85025; 85610; 85730; 93005; G0463

== ENCOUNTER 2025-01-29 07:29 | Day surgery (SDC) | payer MEDICARE, SELFPAY ==
--- OUTSIDE RECORDS SUMMARY | 2012-12-10 08:00 | XMS_ITS | Encounter Summary ---
Author Organization [facility] Address [address], [address] [place] [address] Care Team Providers Care Teradata Architect Name Role Phone [place], [place] Barbosa MD Primary Care Provider [phone] Encounter Details Date Type Department Care Team (Late st Contact Info) Description 12/10/2012 8:00 AM EDT Hospital Encounter [facility] [address] [place] [phone] Shar Carrington MD [address] [place] [address] Social History Tobacco Use Types Packs/Day Years Used Date Smoking Tobacco: Never Passive Smoke Exposure: Never Smokeless Tobacco: Never Alcohol Use Standard Drinks/Week Comments No 0 (1 standard drink = 0.6 oz pur e alcohol) [facility] Utilities Answer Date Recorded In the past 12 months has [employer], gas, oil, or water [employer] threatened to shut off services in your home? No 10/30/2024 AUDIT-C Answer Date Recorded Q1: How often do you have a drink containing alcohol? Never 05/01/2024 Q2: How many drinks containi ng alcohol do you have on a typical day when you are drinking? Patient does not drink Q3: How often do you have si x or more drinks on one occasion? Never 05/01/2024 Overall Financial Resource Strain (CARDIA) Mege r Date Recorded How hard is it for you to pa y for the very basics like food, housing, medical care, and heating? Not hard at all 10/30/2023 PHQ-2 Answer Date Recorded PHQ-9 Total Score 0 10/30/2024 Exercise Vital Sign Answer Date Recorde d On average, how many days pe r week do you engage in moderate to strenuous exercise (like a brisk walk)? 2 days 05/01/2024 On average, how many minutes do you engage in exercise at this level? 20 min 05/01/2024 Hunger Vital Sign Answer Date Recorded Within the past 12 months, y ou worried that your food would run out before you got the money to buy more. Never true 10/31/19 25 Within the past 12 months, t he food you bought just didn't last and you didn't have money to get more. Never true 10/30/2024 PRAPARE - Transportation Answer Date Re corded In the past 12 months, has l ack of transportation kept you from medical appointments or from getting medications? No 10/19 In the past 12 months, has l ack of transportation kept you from meetings, work, or from getting things needed for daily living? No 10/30/2024 Housing Stability Vital Sign Answer Christophe e Recorded Unable to Pay for Housing in the Last Year Not o n file 10/30/2023 Number of Places Lived in the Last Year Not on f ile 10/30/2023 In the last 12 months, was t here a time when you did not have a steady place to sleep or slept in a senior care (including now)? No 10/30/2023 Housing Stability Vital Sign Answer Christophe e Recorded In the last 12 months, was t here a time when you were not able to pay the mortgage or rent on time? No 10/30/2024 In the past 12 months, how m any times have you moved where you were living? 0 10/30/2024 At any time in the past 12 m [facility], were you homeless or living in a senior care (including now)? No 10/30/2024 Food Insecurity Answer Date Recorded Within the past 12 months, y ou worried that your food would run out before you got the money to buy more. 1 10/30/2024 Within the past 12 months, t he food you bought just didn't last and you didn't have money to get more. 1 10/30/2024 Comments No Sex and Gender Information Value Date Recorded Sex Assigned at Not on file Legal Sex Female 4:20 PM EST Gender Identity Not on file Sexual Orientation Not on file documented as of this encounter Functional Status * Question Answer Date of Assessment Author Q1: How often do you have a drink containing alcohol? Never 05/01/2024 8:30 AM Carolina Ackerman LPN Q2: How many drinks containing alcohol do you have on a typical day when you are drinking? Patient does not drink 05/01/2024 8:30 AM Adelita Ackerman LPN Q3: How often do you have six or more drinks on one occasion? Never 05/01/2024 8:30 AM Carolina Ackerman LPN * AUDIT-C Score Answer Date of Assessment Author 0 05/01/2024 8:30 AM Andria Ackerman LPN documented as of this encounter Plan of Treatment Upcoming Encounters Date Type Department Care Team (Late st Contact Info) Description 04/06/2025 10:30 AM EST Office Visit [facility] Independent Contractor [address] [place] [address] Shar Frias DO [address] [place] [address] 1 yr f/u 05/04/2025 8:00 AM EST Office Visit [facility] PRIMARY CARE EXETER [address] [place] [phone] Kira Robles MD [address] [place] [address] Return in about 6 months (around 05/01/2025) for HTN, Hyperlipidemia, gerd, afib, osteoporosis and medicare. 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
--- OUTSIDE RECORDS SUMMARY | 2014-03-23 10:33 | XMS_ITS | Encounter Summary ---
Author Organization [facility] Address [address], [address] [place] [address] Care Team Providers Care Employment Attorney Name Role Phone Kira Robles MD Primary Care Provider [phone] Reason for Referral * Imaging (Routine) - Closed Specialty Diagnoses / Procedures Referred By Contthony t Referred To Contact Radiology Diagnoses Screening for osteoporosis Procedures DEXA Bone Density 2 Sites Kira Robles MD [address] [place] [address] Phone: tel: fax: Referral ID Status Reason Start Date Expiration Date Visits Re quested Visits Authorized [id number] Closed 05/09/2014 05/09/2015 1 1 Encounter Details Date Type Department Care Team (Latest Contact Info) Description 03/23/2014 9:[address] [facility] Hospital Encounter [facility] RADIOLOGY [address] [place] [address] Kira Robles MD [address] [place] [address] Screening for osteoporosis; Other screening breast examination Social History Tobacco Use Types Packs/Day Years Used Date Smoking Tobacco: Never Passive Smoke Exposure: Never Smokeless Tobacco: Never Alcohol Use Standard Drinks/Week Comments No 0 (1 standard drink = 0.6 oz pur e alcohol) [facility] Utilities Answer Date Recorded In the past 12 months has th e electric, gas, oil, or water company threatened to shut off services in your [...] Never 05/01/2024 Overall Financial Resource Strain (CARDIA) Answe r Date Recorded How hard is it [...] place to sleep or slept in a skilled nursing (including now)? No 10/30/2023 Housing Stability Vital Sign Answer Christophe e Recorded In the last 12 months, was t here a time when you were not able to pay the mortgage or rent on time? No 10/30/2024 In the past 12 months, how m any times have you moved where you were living? 0 10/30/2024 At any time in the past 12 m [facility], were you homeless or living in a skilled nursing (including now)? No 10/30/2024 Food Insecurity Answer [...] Description 04/06/2025 10:30 AM EST Office Visit [facility] Precision Agronomist [address] [place] [phone] Shar Frias DO [address] [place] [address] 1 yr f/u 05/04/2025 8:00 AM EST Office Visit [facility] [address] [place] [phone] Kira Robles MD [address] [place] [address] Return in about 6 months (around 05/01/2025) for HTN, Hyperlipidemia, gerd, afib, osteoporosis and medicare. documented as of this encounter Procedures Procedure Name Priority Date/Time Associated Diagnosis Comments RADIOLOGY REPORT 03/24/2014 2:46 PM EST JAMES DIGITAL SCREEN W OR WO CAD BILATERAL Routine 03/23/2014 11:10 AM EST Other screening breast examination DEXA BONE DENSITY 2 SITES Routine 03/23/2014 10:03 AM EST Screening for osteoporosis documented in this encounter Results * RADIOLOGY REPORT (03/24/2014 2:46 PM EST) Anatomical Region Laterality Modality Radiographic Teresita ging us IMG DIAGNOSTIC IMAGING ORDERABLE S Final Result * JAMES Digital Screen Bilateral (03/23/2014 11:10 AM EST) Anatomical Region Laterality Modality Breast Bilateral Mammography 03/23/2014 11:1 0 AM EST Narrative 03/24/2014 1:39 PM EST FINAL Procedure: WMM Mar 23 2014 11:10AM [id number] MAMMOGRAM DIGITAL SCREEN BILAT Reason for Exam: ^Other screening breast examination FULL RESULT: HISTORY: Screening. Positive family history of breast carcinoma. TECHNIQUE: Bilateral digital mammogram with CAD. FINDINGS: Two views of each breast show scattered fibroglandular elements, bilaterally symmetric, with no dominant mass or suspicious microcalcification to suggest malignancy. Scar marker left breast. Status post left breast biopsy 2012, which was benign. No change from left mammogram 02 May 2012, except that the previous nodule has been removed, comparison also made to prior bilateral mammogram 22 April 2012. IMPRESSION: BI-RADS 2 - Benign, no evidence of malignancy. Normal interval followup is recommended in 12 months. OVERALL ASSESSMENT- BENIGN A letter of notification will be sent to the patient regarding the results. Transcribed by: NANDA on Mar 24 2014 1:36P Read by: Kole ARMSTRONG M.D. [id number] on Mar 24 2014 1:36P Electronically Signed by: DR. Kole ARMSTRONG M.D. on: Mar 24 2014 1:36P Procedure Note Navid [place] Jr., MD - 03/24/2014 FINAL Procedure: WMM Mar 23 2014 11:10AM [id number] MAMMOGRAM DIGITAL SCREEN BILAT Reason for Exam: ^Other screening breast examination FULL RESULT: HISTORY: Screening. Positive family history of breast carcinoma. TECHNIQUE: Bilateral digital mammogram with CAD. FINDINGS: Two views of each breast show scattered fibroglandular elements, bilaterally symmetric, with no dominant mass or suspicious microcalcification to suggest malignancy. Scar marker left breast. Status post left breast biopsy 2012, which was benign. No change from left mammogram 02 May 2012, except that the previous nodule has been removed, comparison also made to prior bilateral mammogram 22 April 2012. IMPRESSION: BI-RADS 2 - Benign, no evidence of malignancy. Normal interval followup is recommended in 12 months. OVERALL ASSESSMENT- BENIGN A letter of notification will be sent to the patient regarding the results. Transcribed by: [facility] on Mar 24 2014 1:36P Read by: Kole ARMSTRONG M.D. [id number] on Mar 24 2014 1:36P Electronically Signed by: DR. Kole ARMSTRONG M.D. on: Mar 24 2014 1:36P Kira Robles MD IMG MAMMOGRAPHY ORDERABLES Fi nal Result * DEXA Bone Density 2 Sites (03/23/2014 10:03 AM EST) Anatomical Region Laterality Modality Other 03/23/2014 10:0 3 AM EST Narrative 03/23/2014 1:29 PM EST FINAL Procedure: WDD Mar 23 2014 10:03AM [id number] LUMBAR HIP COMBINATION DEXA Reason for Exam: ^Special screening for osteoporosis FULL RESULT: TECHNIQUE: DEXA scan lumbar spine and bilateral hips. [employer] scanner [id number]. HISTORY: 63-year-old white female. Screening for osteoporosis. Postmenopausal. COMPARISON: No comparison. FINDINGS: The average measured bone mineral density from L1 through L4 1.078 g/sq cm, 91% of young adult normal. T-score -0.8, which is normal. The average measured bone mineral density of the total hips mildly osteopenic at -1.3. The mean left femoral neck T-score is osteoporotic at -2.6. The mean femoral neck T-score is severely osteopenic of -2.4. 0.703 g/sq cm. 68% of young adult normal. IMPRESSION: Osteoporosis in the left femoral neck. T-score -2.6. Elevated fracture risk. Transcribed by: [facility] on Mar 23 2014 1:27P Read by: Kole ARMSTRONG M.D. [id number] on Mar 23 2014 1:27P Electronically Signed by: DR. Kole ARMSTRONG M.D. on: Mar 23 2014 1:27P Procedure Note Navid [place] Jr., MD - 03/23/2014 FINAL Procedure: WDD Mar 23 2014 10:03AM [id number] LUMBAR HIP COMBINATIONDEXA Reason for Exam: ^Special screening for osteoporosis FULL RESULT: TECHNIQUE: DEXA scan lumbar spine and bilateral hips. [employer] scanner [id number]. HISTORY: 63-year-old white female. Screening for osteoporosis. Postmenopausal. COMPARISON: No comparison. FINDINGS: The average measured bone mineral density from L1 through L4 1.078 g/sq cm, 91% of young adult normal. T-score -0.8, which is normal. The average measured bone mineral density of the total hips mildly osteopenic at -1.3. The mean left femoral neck T-score is osteoporotic at -2.6. The mean femoral neck T-score is severely osteopenic of -2.4. 0.703 g/sq cm. 68% of young adult normal. IMPRESSION: Osteoporosis in the left femoral neck. T-score -2.6. Elevated fracture risk. Transcribed by: [facility] on Mar 23 2014 1:27P Read by: Kole ARMSTRONG M.D. [id number] on Mar 23 2014 1:27P Electronically Signed by: DR. Kole ARMSTRONG M.D. 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
--- OUTSIDE RECORDS SUMMARY | 2014-12-04 08:56 | XMS_ITS | Encounter Summary ---
Author Organization [facility] Address [address], [address] [place] [address] Care Team Providers Care Research Professional Name Role Phone Kira Robles MD Primary Care Provider [phone] Reason for Referral * (Routine) - Closed Specialty Diagnoses / Procedures Referred By Sea t Referred To Contact Diagnoses Mitral regurgitation SOB (shortness of breath) Procedures ECHO Complete 2D W Doppler W Color Kyle Cabrera MD [address] [place] [address] Phone: tel: fax: Referral ID Status Reason Start Date Expiration Date Visits Re quested Visits Authorized [id number] Closed 01/02/2015 12/04/2014 1 1 Encounter Details Date Type Department Care Team (Latest Contact Info) Description 12/04/2014 8:56 AM EDT Hospital Encounter [facility] [address] [place] [address] Kyle Cabrera MD [address] [place] [address] HTN (hypertension); Hyperlipidemia; Atrial fibrillation (HCC); Palpitations; Unspecified vitamin D deficiency; Mitral regurgitation; SOB (shortness of breath) Social History Tobacco Use Types Packs/Day Years Used Date Smoking Tobacco: Never Passive Smoke Exposure: Never Smokeless Tobacco: Never Alcohol Use Standard Drinks/Week Comments No 0 (1 standard drink = 0.6 oz pur e alcohol) [facility] Utilities Answer Date Recorded In the past [...] place to sleep or slept in a halfway (including now)? No 10/30/2023 Housing Stability Vital Sign Answer Christophe e Recorded In the last 12 months, was t here a time when you were not able to pay the mortgage or rent on time? No 10/30/2024 In the past 12 months, how m any times have you moved where you were living? 0 10/30/2024 [facility] were you homeless or living in a halfway (including now)? No 10/30/2024 Food Insecurity Answer [...] Description 04/06/2025 10:30 AM EST Office Visit [facility] Sports Lawyer [address] [place] [address] Shar Frias DO [address] [place] [address] 1 yr f/u 05/04/2025 8:00 AM EST Office Visit [facility] [address] [place] [address] Kira Robles MD [address] [place] [address] Return in about 6 months (around 05/01/2025) [...] AM EDT) 12/04/2014 9:25 AM EDT Narrative [facility] - 12/08/2014 7:34 AM EDT [facility] Transthoracic Echocardiography Report (TTE) Patient Name AMBURGEY Date of Study 12/04/2014 SAPNA Date of 1950 Gender Female Age 63 year(s) Race Room Number Height: 64 inch, 162.56 cm Corporate ID [id number] Weight: 180 pounds, 81.7 kg # Patient Acct [id number] BSA: 1.87 m^2 BMI: 30.9 kg/m^2 # MR # [id number] Cloth Cutting Inspector Candice Negron, RT Interpreting Physician Rick Harmon Fellow Referring Nurse Practitioner Interpreting Referring Physician DEMETRA CALHOUN Fellow * DEMETRA BAILEY * Type of Study TTE procedure:2D Echocardiogram, M-Mode, Doppler, Color Doppler. Procedure Date Date: 12/04/2014 Start: 09:25 AM Study Location: [facility] Indications:Dyspnea/SOB and Mitral regurgitation. Patient Status: [...] load reduction. Signature Electronically signed by DEVON Cunningham)Carmelita)(CT)([facility])(Cloth Cutting Inspector) on 12/04/2014 09:55 AM FINDINGS Left Atrium [...] Procedure Note Kyle Cabrera MD - 12/08/2014 [facility] Transthoracic Echocardiography Report (TTE) Patient Name AMBURGEY Date of Study 12/04/2014 SAPNA Date of 1950 Gender Female Age 63 year(s) Race Room Number Height: 64 inch, 162.56 cm Corporate ID [id number] Weight: 180 pounds, 81.7 kg # Patient Acct [id number] BSA: 1.87 m^2 BMI: 30.9kg/m^2 # MR # [id number] Cloth Cutting Inspector RT Octavio Interpreting Physician Rick Harmon Fellow Referring Nurse Practitioner Interpreting Referring Physician DEMETRA CALHOUN Fellow * DEMETRA BAILEY* Type of Study TTE procedure:2D Echocardiogram, M-Mode, Doppler, Color Doppler. Procedure Date Date: 12/04/2014 Start: 09:25 AM Study Location: [facility] Indications:Dyspnea/SOB and Mitral regurgitation. Patient Status: [...] load reduction. Signature Electronically signed by RT Octavio(R)(M)(LOREN)([facility])(Cloth Cutting Inspector)on 12/04/2014 09:55 AM FINDINGS Left Atrium Left [...] ECHO ORDERABLES Final Result Performing Organization Address City/[facility] Co de Phone Number [facility] * Patient Fasting? (12/04/2014 9:07 AM EDT) Pathologist [facility] Patient Fasting? yes 12/04/2014 9:09 AM EDT [facility] Comment: Performed at [facility] [address] [place] [address] ([phone] 12/04/2014 9:07 AM EDT 12/04/2014 9:08 AM EDT Kyle Cabrera MD CHEMISTRY ORDERABLES Final Res ult Performing Organization Address [facility] Co de Phone Number [facility] [address] [place] [address], [facility] [phone] [facility] * (ABNORMAL) Comprehensive metabolic panel (12/04/2014 9:07 AM EDT) Pathologist [facility] Glucose 110(H) 70 - 99 mg/dL 12/04/2014 9:54 AM EDT [facility] BUN 11 8 - 23 mg/dL 12/04/2014 9:54 AM EDT [facility] Creatinine 0.70 0.50 - 0.90 mg/dL 12/04/2014 9:54 AM EDT [facility] BUN/Creatinine Ratio 16 9 - 20 12/04/2014 9:54 AM EDT [facility] Calcium 9.2 8.6 - 10.4 mg/dL 12/04/2014 9:54 AM EDT [facility] Sodium 140 135 - 144 mmol/L 12/04/2014 9:54 AM EDT [facility] Potassium 4.0 3.7 - 5.3 mmol/L 12/04/2014 9:54 AM EDT [facility] Chloride 106 98 - 107 mmol/L 12/04/2014 9:54 AM EDT [facility] CO2 22 20 - 31 mmol/L 12/04/2014 9:54 AM EDT [facility] Anion Gap 16 8 - 16 mmol/L 12/04/2014 9:54 AM EDT [facility] Alkaline Phosphatase 52 35 - 104 U/L 12/04/2014 9:54 AM EDT [facility] ALT 64(H) 5 - 33 U/L 12/04/2014 9:54 AM EDT [facility] AST 38(H) <32 U/L 12/04/2014 9:54 AM EDT [facility] Total Bilirubin 0.82 0.3 - 1.2 mg/dL 12/04/2014 9:54 AM EDT [facility] Total Protein 7.2 6.4 - 8.3 g/dL 12/04/2014 9:54 AM EDT [facility] Albumin 4.3 3.5 - 5.2 g/dL 12/04/2014 9:54 AM EDT [facility] Albumin/Globuli n Ratio NOT REPORTED 1.0 - 2.5 [facility] GFR Non- >60 >60 mL/min 12/04/2014 9:54 AM EDT [facility] GFR >60 >60 mL/min 12/04/2014 9:54 AM EDT [facility] GFR Comment 12/04/2014 9:54 AM EDT [facility] Comment: Average GFR for 60-69 years old: 85 mL/min/1.73sq m Chronic Kidney Disease: <60 mL/min/1.73sq m Kidney failure: <15 mL/min/1.73sq m Performed at [facility] [address] [place] [address] ([phone] GFR Staging NOT REPORTED [facility] BLOOD SPECIMEN / Unknown 12/04/2014 9:07 AM EDT 12/04/2014 9:08 AM EDT us Kyle Cabrera MD CHEMISTRY ORDERABLES Final Res ult [facility] [address] [place] [address], [facility] [phone] [facility] * (ABNORMAL) CBC Auto Differential (12/04/2014 9:07 AM EDT) WBC 4.3 3.5 - 11.0 k/uL 12/04/2014 9:19 AM EDT [facility] RBC 4.39 4.0 - 5.2 m/uL 12/04/2014 9:19 AM EDT [facility] Hemoglobin 13.8 12.0 - 16.0 g/dL 12/04/2014 9:19 AM EDT [facility] Hematocrit 41.4 36 - 46 % 12/04/2014 9:19 AM EDT [facility] MCV 94.3 80 - 100 fL 12/04/2014 9:19 AM EDT [facility] MCH 31.4 26 - 34 pg 12/04/2014 9:19 AM EDT [facility] MCHC 33.3 31 - 37 g/dL 12/04/2014 9:19 AM EDT [facility] RDW 13.8 12.1 - 15.2 % 12/04/2014 9:19 AM EDT [facility] Platelets 198 140 - 450 k/uL 12/04/2014 9:19 AM EDT [facility] MPV NOT REPORTED 6.0 - 12.0 fL [facility] Differential Type YES 12/04/2014 9:19 AM EDT [facility] Seg Neutrophils 55 47 - 75 % 5 9:19 AM EDT [facility] Lymphocytes 32 15 - 40 % 12/04/2014 9:19 AM EDT [facility] Monocytes % 10(H) 4 - 8 % 12/04/2014 9:19 AM EDT [facility] Eosinophils % 2 0 - 5 % 12/04/2014 9:19 AM EDT [facility] Basophils % 1 0 - 2 % 12/04/2014 9:19 AM EDT [facility] Neutrophils Absolute 2.40(L) 2.5 - 7.0 k/uL 12/04/2014 9:19 AM EDT [facility] Lymphocytes Absolute 1.40 1.1 - 2.7 k/uL 12/04/2014 9:19 AM EDT [facility] Monocytes Absolute 0.40 0.0 - 1.0 k/uL 12/04/2014 9:19 AM EDT [facility] Eosinophils Absolute 0.10 0.0 - 0.4 k/uL 12/04/2014 9:19 AM EDT [facility] Basophils Absolute 0.00 0.0 - 0.2 k/uL 12/04/2014 9:19 AM EDT [facility] Comment: Performed at [facility] [address] [place] [address] ([phone] WBC Morphology NOT REPORTED [facility] RBC Morphology NOT REPORTED [facility] Platelet Estimate NOT REPORTED [facility] BLOOD SPECIMEN / Unknown 12/04/2014 9:07 AM EDT 12/04/2014 9:08 AM EDT Kyle Cabrera MD HEMATOLOGY ORDERABLES Final Re sult [facility] [address] [place] [address], [facility] [phone] [facility] * Lipid panel (12/04/2014 9:07 AM EDT) Cholesterol 190 <200 mg/dL 12/04/2014 9:54 AM EDT [facility] Comment: Cholesterol Guidelines: <200 Desirable 200-240 Borderline >240 Undesirable HDL 53 >40 mg/dL 12/04/2014 9:54 AM EDT [facility] Comment: HDL Guidelines: <40 Undesirable 40-59 Borderline >59 Desirable LDL Cholesterol 112 0 - 130 mg/dL 12/04/2014 9:54 AM EDT [facility] Comment: LDL Guidelines: <100 Desirable 100-129 Near to/above Desirable 130-159 Borderline >159 Undesirable Direct (measured) LDL and calculated LDL are not interchangeable tests. Chol/HDL Ratio 3.6 <5 12/04/2014 9:54 AM EDT [facility] Comment: Triglycerides 125 <150 mg/dL 12/04/2014 9:54 AM EDT [facility] Comment: Triglyceride Guidelines: <150 Desirable 150-199 Borderline 200-499 High >499 Very high Based on AHA Guidelines for fasting triglyceride, February 2012. VLDL 25 1 - 30 mg/dL 12/04/2014 9:54 AM EDT [facility] Comment: Performed at [facility] [address] [place] [address] ([phone] BLOOD SPECIMEN / Unknown 12/04/2014 9:07 AM EDT 12/04/2014 9:08 AM EDT Kyle Cabrera MD CHEMISTRY ORDERABLES Final Res ult Performing Organization Address City/[facility] Co de Phone Number [facility] [address] [place] [address], [facility] [phone] [facility] * Vitamin D 25 hydroxy (12/04/2014 9:07 AM EDT) Vit D, 25-Hydroxy 44.3 30.0 - 100.0 ng/mL 12/04/2014 9:54 AM EDT [facility] Comment: Reference Range: Vitamin D status Range Deficiency <20 ng/mL Mild Deficiency 20-30 ng/mL Sufficiency 30-100 ng/mL Toxicity >100 ng/mL Performed at [facility] [address] [place] [address] ([phone] BLOOD SPECIMEN / Unknown 12/04/2014 9:07 AM EDT 12/04/2014 9:08 AM EDT Kyle Cabrera MD CHEMISTRY ORDERABLES Final Res ult Performing Organization Address City/[facility] Co de Phone Number [facility] [address] [place] [address], [facility] [phone] [facility] * TSH with Reflex (12/04/2014 9:07 AM EDT) TSH 3.76 0.30 - 5.00 mIU/L 12/04/2014 9:54 AM EDT [facility] Comment: Performed at [facility] [address] [place] [address] ([phone] BLOOD SPECIMEN / Unknown 12/04/2014 9:07 AM EDT 12/04/2014 9:08 AM EDT Kyle Cabrera MD CHEMISTRY ORDERABLES Final Res ult Performing Organization Address City/[facility]/ZIP Co de Phone Number [facility] [address] [place] [address], [facility] [phone] [facility] * EKG 12 lead (12/04/2014 9:03 AM EDT) Ventricular Rate 57 BPM [facility] Atrial Rate 57 BPM [facility] P-R Interval 184 ms [facility] QRS Duration 84 ms [facility] Q-T Interval 438 ms [facility] QTc Calculation (Bazett) [address] [facility] P [place] [address] [facility] R [place] [address] [facility] T [place] 46 degrees [facility] 12/04/2014 9:03 AM EDT Narrative [facility] - 12/08/2014 9:00 AM EDT Sinus bradycardiaOtherwise normal ECGWhen compared with ECG of 24-NOV-2013 10:23,No significant change was found Procedure Note Result, Unknown Provider - 12/08/2014 Sinus bradycardiaOtherwise normal ECGWhen compared with ECG of [id number],No significant change was found Kyle Cabrera MD ECG ORDERABLES Final Result Performing Organization Address [facility] Co de Phone Number [facility] documented in this encounter Visit Diagnoses [...] documented as of this encounter Care Teams Research Professional Relationship Specialty Start Date End Date Kira Robles MD [address] [id number] PCP - General Family Medicine 06/10/13 documented as of this encounter
[2025-01-23 13:31] VITALS: BP 132/89; PULSE 69; TEMP 36.4; O2SAT 100; BMI 30.6
--- NOTE | 2025-01-23 13:53 | PM.PRESUREVA ---
History of Present Illness History of Present Illness Chief complaint: RIGHT KIDNEY STONE Narrative: Mrs. Sapna Restrepo presents to presurgical testing with a right kidney stone and is scheduled for cystoscopy, right RG, right ureter, thulium laser, possible right stent placement with Dr. Vargas on January 29, 2025. Review of Systems ROS Narrative REVIEW OF SYSTEMS: Negative except as stated in HPI, ten or more systems reviewed. Constitutional: No fever, chills, weakness ENT: No sore throat or epistaxis Cardiovascular: No edema, chest pain, palpitations, or activity intolerance Respiratory: No shortness of breath, cough, or wheezing Musculoskeletal: No joint pain or swelling Gastrointestinal: No abdominal pain, constipation, diarrhea, or vomiting Genitourinary: No dysuria or hematuria Neurological: No numbness, tingling, weakness, or headache Psychiatric: No mood changes [facility] Medical History (Updated 01/23/25 @ 14:19 by Eri Fontana) Osteoporosis ?M81.0 - Age-related osteoporosis without current pathological fracture (ICD-10) History of blood transfusion (1998) ?Z92.89 - Personal history of other medical treatment (ICD-10) COVID-19 ?U07.1 - COVID-19 (ICD-10) Extremity edema ?R60.0 - Localized edema (ICD-10) Postoperative nausea and vomiting ?R11.2 - Nausea with vomiting, unspecified (ICD-10) ?Z98.890 - Other specified postprocedural states (ICD-10) UTI (urinary tract infection) ?N39.0 - Urinary tract infection, site not specified (ICD-10) Renal cyst ?N28.1 - Cyst of kidney, acquired (ICD-10) Cardiomyopathy ?I42.9 - Cardiomyopathy, unspecified (ICD-10) Palpitations ?R00.2 - Palpitations (ICD-10) Hypertension ?I10 - Essential (primary) hypertension (ICD-10) Sepsis (07/12/10) ?A41.9 - Sepsis, unspecified organism (ICD-10) Presence of Watchman left atrial appendage closure device ?Z95.818 - Presence of other cardiac implants and grafts (ICD-10) Paroxysmal atrial fibrillation ?I48.0 - Paroxysmal atrial fibrillation (ICD-10) Hematuria ?R31.9 - Hematuria, unspecified (ICD-10) Kidney stones ?N20.0 - Calculus of kidney (ICD-10) Surgical History History of extracorporeal shockwave lithotripsy (ESWL) (12/27/23) ?Z98.890 - Other specified postprocedural states (ICD-10) History of lithotripsy ?Z98.890 - Other specified postprocedural states (ICD-10) History of colonoscopy ?Z98.890 - Other specified postprocedural states (ICD-10) History of dilation and curettage ?Z98.890 - Other specified postprocedural states (ICD-10) S/P ureteral stent placement ?Z96.0 - Presence of urogenital implants (ICD-10) S/P cystoscopy ?Z98.890 - Other specified postprocedural states (ICD-10) H/O ureteroscopy ?Z98.890 - Other specified postprocedural states (ICD-10) S/P breast lumpectomy ?Z98.890 - Other specified postprocedural states (ICD-10) H/O section ?Z98.891 - History of uterine scar from previous surgery (ICD-10) Family History (Updated 01/23/25 @ 13:34 by Eri Fontana) Other Family history of breast cancer Family history of cancer Family history of diabetes mellitus Family history of leukemia Family history of myocardial infarction Family history of stroke Social History Within the past year, how often did you have a drink containing alcohol: never Score interpretation: A score less than 3 is consistent with normal alcohol consumption. Smoking status: Never smoker Non-prescribed substance use: denies use Highest level of school completed/degree received: high school graduate Meds Home Medications and Allergies Home Medications ?Medication ?Instructions ?Recorded ?Confirmed ?Type alendronate 70 mg tablet 70 mg PO QWEEK 12/18/23 01/23/25 History allopurinol 100 mg tablet 100 mg PO DAILY 12/18/23 01/23/25 History aspirin 81 mg tablet,delayed 81 mg PO DAILY 12/18/23 01/23/25 History release (Adult Aspirin Regimen) cholecalciferol (vitamin D3) 25 1,000 unit PO DAILY 12/18/23 01/23/25 History mcg (1,000 unit) capsule diltiazem HCl 120 mg 120 mg PO Q24H 12/18/23 01/23/25 History capsule,extended release 24 hr hydrochlorothiazide 50 mg tablet 50 mg PO DAILY 12/18/23 01/23/25 History lisinopril 5 mg tablet 5 mg PO QPM 12/18/23 01/23/25 History metoprolol tartrate 50 mg tablet 50 mg PO Q12H 12/18/23 01/23/25 History potassium bicarbonate-citric acid 25 meq PO BID 12/18/23 01/23/25 History 25 mEq effervescent tablet (Klor-Con/EF) potassium chloride 20 mEq 20 meq PO BID 12/18/23 01/23/25 History tablet,extended release(part/cryst) Allergies Allergy/AdvReac Type Severity Reaction Status Date / Time Penicillins AdvReac Nausea Verified 01/23/25 13:30 Sulfa (Sulfonamide AdvReac Nausea Verified 01/23/25 13:30 Antibiotics) Exam Narrative Exam Narrative: Constitutional: Awake, alert, comfortable, well-appearing, nontoxic, interactive, vital signs as charted Head: Normocephalic, atraumatic Eyes: Conjunctiva and lids normal to inspection, pupils normal ENT: Tympanic membranes pearly weaver, nonerythematous, noninjected, naris patent, posterior oropharynx clear, oral mucosa moist Neck: Supple, normal appearance, normal range of motion, no meningeal signs, no lymphadenopathy Respiratory: No respiratory distress, breath sounds clear Cardiovascular: Irregular rate consistent with atrial fibrillation, strong heart tones Abdomen: Nontender, normal bowel sounds, soft, no CVA tenderness Musculoskeletal: Normal gait, no swelling or edema Skin: No rashes or induration, no lesions, only visible skin inspected Neuro: No neurological deficits, normal sensation Psychiatric: Oriented ?3, normal affect Constitutional Vital Signs, click to edit/add: Last Vital Signs Temp 97.5 F L 01/23/25 13:31 Pulse 69 01/23/25 13:31 Resp 20 01/23/25 13:31 BP 132/89 01/23/25 13:31 Pulse Ox 100 01/23/25 13:31 O2 Del Method Room Air 01/23/25 13:31 Assessment and Plan Assessment and Plan (1) Right kidney stone: Plan Cystoscopy, right RG, right ureter, thulium laser, possible right stent placement per Dr. Vargas on 01/29/2025
[2025-01-29] VITALS (12 sets, daily range): BP systolic 94–160; BP diastolic 62–100; PULSE 54–84; TEMP 36.1–36.3; O2SAT 94–98; BMI 30.5
--- NOTE | 2025-01-29 | FL_ITS ---
The [address] [address] Patient Name: ALLAN BREEN MRN: [id number] date: 1950 Sex: F Assigned Patient Location: SURGOUT Current Patient Location: [facility] Accession/Order Number: [id number] Exam Date: 01/29/2025 09:12 Report Date: 01/31/2025 12:05 At the request of: RACHEL FLORES MD Procedure: FL fluoroscopy <1hr Fluoroscopic assessment for right stent placement HISTORY: Right ureteral stent placement 1 image was obtained. Cumulative Air Kerma in mGy: 20 mGy Intraoperative assessment for right stent placement. Stent in place. FL/FL fluoroscopy <1hr IMPRESSION: Right humeral stent in place. Impression dictated by: Lane Buckley M.D. 01/31/2025 12:05 PM Dictation Location: [place] [address] Electronically authenticated by: [id number] Y Date: 01/31/2025 12:05
--- OUTSIDE RECORDS SUMMARY | 2025-01-29 07:33 | XMS_ITS | Encounter Summary ---
Author Organization [facility] Address [address] [place] [address] Care Team Providers Care Inner Tube Inserter Name Role Phone Kira Robles MD Primary Care Provider [phone] Encounter Details Date Type Department Care Team [...] on filedocumented in this encounter Care Teams Inner Tube Inserter Relationship Specialty Start Date End Date Kira Robles MD [address] [place] [id number] PCP - General 03/27/18 documented as of this encounter
--- OUTSIDE RECORDS SUMMARY | 2025-01-29 07:33 | XMS_ITS | Encounter Summary ---
Author Organization [facility] Address [address] [place] [address] Care Team Providers Care Poultry Raiser Name Role Phone Kira Robles MD Primary Care Provider [phone] Encounter Details Date Type Department Care Team [...] on filedocumented in this encounter Care Teams Poultry Raiser Relationship Specialty Start Date End Date Kira Robles MD [address] [place], [place] [phone] PCP - General 03/27/18 documented as of this encounter
--- OUTSIDE RECORDS SUMMARY | 2025-01-29 07:33 | XMS_ITS | Encounter Summary ---
Author Organization [facility] Address [address] [facility], [address] [place] [address] Care Team Providers Care Senior Water Resources Engineer Name Role Phone Kira Robles MD Primary Care Provider [phone] Encounter Details Date Type Department Care Team (Late st Contact Info) Description 12/27/2023 Orders Only [facility] [place] [address] [place] [address] Provider, MD Saskia Social History [...] place to sleep or slept in a chcf (including now)? No 10/30/2023 Food Insecurity Answer [...] Description 04/06/2025 10:30 AM EST Office Visit [facility] Locomotive Observer [address] [place] [phone] Shar Frias DO [address] [place] [address] 1 yr f/u 05/04/2025 8:00 AM EST Office Visit [facility] [address] [address] Kira Robles MD [address] [place] [address] Return in about 6 months (around 05/01/2025) [...] documented as of this encounter Care Teams Senior Water Resources Engineer Relationship Specialty Start Date End Date Kira Robles MD [address] [place] [address] PCP - General Family Medicine 06/10/13 documented as of this encounter
--- OUTSIDE RECORDS SUMMARY | 2025-01-29 07:33 | XMS_ITS | Encounter Summary ---
Author Organization [facility] Address [address] [place] [address] Care Team Providers Care Streaming Media Specialist Name Role Phone Kira Robles MD Primary Care Provider [phone] Encounter Details Date Type Department Care Team [...] on filedocumented in this encounter Care Teams Streaming Media Specialist Relationship Specialty Start Date End Date Kira Robles MD [address] [place] [address] PCP - General 03/27/18 documented as of this encounter
--- OUTSIDE RECORDS SUMMARY | 2025-01-29 07:33 | XMS_ITS | Encounter Summary ---
Author Organization [facility] Address [address] [facility], [address] [place] [address] Care Team Providers Care Powertrain Design Engineer Name Role Phone Kira Robles MD Primary Care Provider [phone] Reason for Visit * Reason Comments Medication Refill Encounter Details Date Type Department Care Team (Late st Contact Info) Description 12/20/2020 Refill [facility] [place] [address] [place] [address] Kira Robles MD [address] [place] [address] Medication Refill Social History Tobacco [...] Description 04/06/2025 10:30 AM EST Office Visit [facility] Adaptive Physical Education Teacher [address] [place] [address] Shar Frias DO [address] [place] [address] 1 yr f/u 05/04/2025 8:00 AM EST Office Visit [facility] [place] [address] [place] [phone] Kira Robles MD [address] [place] [address] Return in about 6 months (around 05/01/2025) [...] documented as of this encounter Care Teams Powertrain Design Engineer Relationship Specialty Start Date End Date Kira Robles MD [address] [place] [address] PCP - General Family Medicine 06/10/13 documented as of this encounter
--- OUTSIDE RECORDS SUMMARY | 2025-01-29 07:33 | XMS_ITS | Clinical Summary ---
Author Organization [facility] Address [facility] [place] [address] Care Team Providers Care Supervisor Incising Name Role Phone Kira Robles MD Primary Care Provider [phone] Allergies Active Allergy Reactions Criticality Noted Date [...] Maintenance Due Date Last Done Comments Depression Screening/Follow- Up (PHQ-2/9) 1960 Hepatitis C Screening 1966 Falls Risk Assessment 2013 Respiratory Syncytial Virus Immunization: Risk, 60-74 Risk, or 75+ (1 - 1-dose 75+ series) 12/12/2023 COVID-19 Vaccine (2024-2 6 season) 2025 04/16/2023, 02/16/2022, 04/18/2021, Additional history exists Influenza [...] sigmoidoscopy Discontinued Medical Devices Implanted Type Area Rolloff Driver Device Identifier Shelf Expiration Date Model / Serial / Lot Closure Perclose Prostyle - [id number] Implanted:Qt y: 1 on 09/14/2022 by Pollo Angulo MD at [facility] Closure Device Right: Vein [employer] [id number] 06/20/2024 [id number] / / [id number]? Description:Femoral System Watchman Flex Procedure Charge - [id number] Implanted:Qt y: 1 on 09/14/2022 by Pollo Angulo MD at [facility] Closure Device [employer] [id number] / / Device 27mm Watchman Flex - [id number] Implanted:Qt y: 1 on 09/14/2022 by Pollo Angulo MD at [facility] Closure Device N/A: Heart [employer] 06/04/2025 [id number] [facility] / / [id number] Description:[employer] Insurance MEDICARE PART A & B Member Subscriber Plan / Payer (Ef fective 2013-Present) Name:Sapna Restrepo Member ID:[id number] Relation to Subscriber:Self Name:Sapna Restrepo Subscriber ID:[id number] Payer ID:Not on file Group ID:Not on file Type:Not on file Address: [address] PART A CLAIMS [facility] [place] [address] [facility] Advance Directives For more information, please contact: [phone] * Full Code (Latest Code Status on File) Date Activated Date Inactivated Comments 09/14/2022 2:05 PM 09/15/2022 1:05 PM * Full Code Date Activated Date Inactivated Comments 09/14/2022 8:47 AM 09/14/2022 2:05 PM Care Teams Supervisor Incising Relationship Specialty Start Date End Date Kira Robles MD [address] [place] [address] PCP - General Family Medicine 08/15/22
--- OUTSIDE RECORDS SUMMARY | 2025-01-29 07:33 | XMS_ITS | Encounter Summary ---
Author Organization [facility] Address [facility] [place] [address] Care Team Providers Care Evp General Counsel Name Role Phone Kira Robles MD Primary Care Provider [phone] Encounter Details Date Type Department Care Team (Late st Contact Info) Description 08/28/2022 Prep for Surgery [facility] [address] [place] [address] 3rd [place] [address] Jack Escobar RN Social History [...] on filedocumented in this encounter Care Teams Evp General Counsel Relationship Specialty Start Date End Date Kira Robles MD [address] [place] [address] PCP - General Family Medicine 08/15/22 documented as of this encounter
--- OUTSIDE RECORDS SUMMARY | 2025-01-29 07:33 | XMS_ITS | Encounter Summary ---
Author Organization [facility] Address [address] [place] [address] Care Team Providers Care Battery Wrecker Operator Name Role Phone Kira Robles MD Primary Care Provider [phone] Encounter Details Date Type Department Care Team [...] 10/24/2021 11:00 AM Kira Robles MD [facility] 04/20/2022 11:00 AM Kyle Cabrera MD [facility] Medication List: Prior to Admission medications [...] on filedocumented in this encounter Care Teams Battery Wrecker Operator Relationship Specialty Start Date End Date Kira Robles MD [address] [place], [place] [phone] PCP - General 03/27/18 documented as of this encounter
--- OUTSIDE RECORDS SUMMARY | 2025-01-29 07:33 | XMS_ITS | Encounter Summary ---
Author Organization [facility] Address [address] [place] [address] Care Team Providers Care Shoe Stock Associate Name Role Phone Kira Robles MD Primary Care Provider [phone] Encounter Details Date Type Department Care Team [...] 09/01/2019 10:55 AM EDT Fosamax 70 mg [facility] Maintenance Topic Date Due ??? Hepatitis C [...] Center 09/17/2019 10:20 AM MD [facility] 04/22/2020 11:30 AM Kyle Cabrera MD [place] [facility] Patient Active Problem List: HTN (hypertension) [...] on filedocumented in this encounter Care Teams Shoe Stock Associate Relationship Specialty Start Date End Date Kira Robles MD [address] [place] [address] PCP - General 03/27/18 documented as of this encounter
--- OUTSIDE RECORDS SUMMARY | 2025-01-29 07:33 | XMS_ITS | Encounter Summary ---
Author Organization [facility] Address [address] [facility], [address] [place] [address] Care Team Providers Care Mysql Database Developer Name Role Phone Kira Robles MD Primary Care Provider [phone] Reason for Referral * Imaging (Routine) - Closed Specialty Diagnoses / Procedures Referred By Sea t Referred To Contact Radiology Diagnoses Hematuria, gross Kidney stones Procedures CT ABDOMEN PELVIS W IV CONTRAST Additional Contrast? Oral Jason Vargas MD [address] [place] [address] Phone: tel: fax: Referral ID Status Reason Start Date Expiration Date Visits Re quested Visits Authorized [id number] Closed 07/11/2021 07/11/2022 1 1 Encounter Details Date Type Department Care Team (Latest Contact Info) Description 07/11/2021 Transcribe Orders [facility] [address] [place], [place] [phone] Jason Vargas MD [address] [place] [address] Hematuria, gross (Primary Dx); Kidney [...] 04/06/2025 10:30 AM EST Office Visit [facility] [address] [place] [address] Shar Frias DO [address] [place] [address] 1 yr f/u 05/04/2025 8:00 AM EST Office Visit [facility] [address] [place] [phone] Kira Robles MD [address] [place] [address] Return in about 6 months (around 05/01/2025) [...] HISTORY: 70-year-old female microhematuria, kidney stones. COMPARISON: [place] 03/22/2017. TECHNIQUE: CT scan of the abdomen [...] HISTORY: 70-year-old female microhematuria, kidney stones. COMPARISON: [place] 03/22/2017. TECHNIQUE: CT scan of the abdomen [...] documented as of this encounter Care Teams Mysql Database Developer Relationship Specialty Start Date End Date Kira Robles MD [address] [place], [place] [phone] PCP - General Family Medicine 06/10/13 documented as of this encounter
--- OUTSIDE RECORDS SUMMARY | 2025-01-29 07:33 | XMS_ITS | Encounter Summary ---
Author Organization [facility] Address [address] [place] [address] Care Team Providers Care Dental Resident Name Role Phone Kira Robles MD Primary Care Provider [phone] Encounter Details Date Type Department Care Team [...] on filedocumented in this encounter Care Teams Dental Resident Relationship Specialty Start Date End Date Kira Robles MD [address] [place], [place] [phone] PCP - General 03/27/18 documented as of this encounter
--- OUTSIDE RECORDS SUMMARY | 2025-01-29 07:33 | XMS_ITS | Encounter Summary ---
Author Organization [facility] Address [address] [facility], [address] [place] [address] Care Team Providers Care Rn Infusion Name Role Phone Kira Robles MD Primary Care Provider [phone] Reason for Visit * Reason Comments Medication Refill Encounter Details Date Type Department Care Team (Late st Contact Info) Description 04/13/2019 Refill [facility] [place] [address] [place] [phone] Kira Robles MD [address] [place] [address] Medication Refill Social History Tobacco [...] 04/06/2025 10:30 AM EST Office Visit [facility] Working Foreman [address] [place] [address] Shar Frias DO [address] [place] [address] 1 yr f/u 05/04/2025 8:00 AM EST Office Visit [facility] [place] [address] [place] [phone] Kira Robles MD [address] [place] [address] Return in about 6 months (around 05/01/2025) [...] documented as of this encounter Care Teams Rn Infusion Relationship Specialty Start Date End Date Kira Robles MD [address] [place] [address] PCP - General Family Medicine 06/10/13 documented as of this encounter
--- OUTSIDE RECORDS SUMMARY | 2025-01-29 07:33 | XMS_ITS | Encounter Summary ---
Author Organization [facility] Address [address] [place] [address] Care Team Providers Care Internet Designer Name Role Phone Kira Robles MD Primary Care Provider [phone] Encounter Details Date Type Department Care Team [...] on filedocumented in this encounter Care Teams Internet Designer Relationship Specialty Start Date End Date Kira Robles MD [address] [place] [address] PCP - General 03/27/18 documented as of this encounter
--- OUTSIDE RECORDS SUMMARY | 2025-01-29 07:33 | XMS_ITS | Encounter Summary ---
Author Organization [facility] Address [address] [facility], [address] [place] [address] Care Team Providers Care Tubing Oiler Name Role Phone Kira Robles MD Primary Care Provider [phone] Reason for Visit * Reason Comments Medication Refill Encounter Details Date Type Department Care Team (Late st Contact Info) Description 11/11/2018 Refill [facility] [place] [address] [place] [address] Kira Robles MD [address] [place] [address] Medication Refill Social History Tobacco [...] Description 04/06/2025 10:30 AM EST Office Visit [facility] Manager Business Planning [address] [place] [phone] Shar Frias DO [address] [place] [address] 1 yr f/u 05/04/2025 8:00 AM EST Office Visit [facility] [address] [place] [phone] Kira Robles MD [address] [place] [address] Return in about 6 months (around 05/01/2025) [...] documented as of this encounter Care Teams Tubing Oiler Relationship Specialty Start Date End Date Kira Robles MD [address] [place] [address] PCP - General Family Medicine 06/10/13 documented as of this encounter
--- OUTSIDE RECORDS SUMMARY | 2025-01-29 07:33 | XMS_ITS | Encounter Summary ---
Author Organization [facility] Address [address] [place] [address] Care Team Providers Care Transit Bus Driver Name Role Phone Kira Robles MD Primary Care Provider [phone] Encounter Details Date Type Department Care Team [...] of her Metoprolol Tart 50mg BID to [facility] [place] EDT documented in this encounter Plan of Treatment Not on file documented as of this encounter Visit Diagnoses Not on filedocumented in this encounter Care Teams Transit Bus Driver Relationship Specialty Start Date End Date Kira Robles MD [address] [place], [place] [id number] PCP - General 03/27/18 documented as of this encounter
--- OUTSIDE RECORDS SUMMARY | 2025-01-29 07:33 | XMS_ITS | Encounter Summary ---
Author Organization [facility] Address [address] [facility] [address], [address] [place] [address] Care Team Providers Care Supervisor Riveting Name Role Phone Kira Robles MD Primary Care Provider [phone] Reason for Visit * Reason Comments Medication Refill Encounter Details Date Type Department Care Team (Late st Contact Info) Description 05/31/2021 Refill [facility] PRIMARY [facility]ARE [place] [address] [place] [address] Kira Robles MD [address] [place] [address] Medication Refill Social History Tobacco [...] Description 04/06/2025 10:30 AM EST Office Visit [facility] Lithographic Photographer [address] [place] [address] Shar Frias DO [address] [place] [address] 1 yr f/u 05/04/2025 8:00 AM EST Office Visit [facility] PRIMARY [facility]ARE [place] [address] [place] [phone] Kira Robles MD [address] [place] [address] Return in about 6 months (around 05/01/2025) [...] documented as of this encounter Care Teams Supervisor Riveting Relationship Specialty Start Date End Date Kira Robles MD [address] [place] [address] PCP - General Family Medicine 06/10/13 documented as of this encounter
--- OUTSIDE RECORDS SUMMARY | 2025-01-29 07:33 | XMS_ITS | Encounter Summary ---
Author Organization [facility] Address [address] [place] [address] Care Team Providers Care Pulp Plant Supervisor Name Role Phone Kira Robles MD Primary Care Provider [phone] Encounter Details Date Type Department Care Team [...] 12/29/2019 9:58 AM EDT Fosamax 70 mg [facility] Last check up 10/15/19 Health [...] Center 04/21/2020 1:00 PM MD [address] [facility] 04/22/2020 11:30 AM MD Demetra Delong [facility] Patient Active Problem List: HTN (hypertension) Hyperlipidemia [...] on filedocumented in this encounter Care Teams Pulp Plant Supervisor Relationship Specialty Start Date End Date Kira Robles MD [address] [place] [address] PCP - General 03/27/18 documented as of this encounter
--- OUTSIDE RECORDS SUMMARY | 2025-01-29 07:33 | XMS_ITS | Encounter Summary ---
Author Organization [facility] Address [address], [address] [place] [address] Care Team Providers Care Recovery Collector Name Role Phone Kira Robles MD Primary Care Provider [phone] Encounter Details Date Type Department Care Team (Late st Contact Info) Description 01/23/2025 Abstract [employer] Dairy Scientist [address] [place] [address] Kyle Cabrera MD [address] [place] [address] Social History Tobacco Use Types Packs/Day Years Used Date Smoking Tobacco: Never Passive Smoke Exposure: Never Smokeless Tobacco: Never Alcohol Use Standard Drinks/Week Comments No 0 (1 standard drink = 0.6 oz pur e alcohol) [facility] Utilities Answer Date Recorded In the past 12 months has [email or web address], gas, oil, or water [employer] threatened to shut off services in your [...] place to sleep or slept in a prison (including now)? No 10/30/2023 Housing Stability Vital Sign Answer Christophe e Recorded In the last 12 months, was t here a time when you were not able to pay the mortgage or rent on time? No 10/30/2024 In the past 12 months, how m any times have you moved where you were living? 0 10/30/2024 At any time in the past 12 m [facility], were you homeless or living in a prison (including now)? No 10/30/2024 Food Insecurity Answer [...] Description 04/06/2025 10:30 AM EST Office Visit [facility] Dairy Scientist [address] [place] [address] Shar Frias DO [address] [place] [address] 1 yr f/u 05/04/2025 8:00 AM EST Office Visit [facility] PRIMARY CARE [place] [address] [place] [phone] Kira Robles MD [address] [place] [address] Return in about 6 months (around 05/01/2025) for HTN, Hyperlipidemia, gerd, afib, osteoporosis and medicare. documented as of this encounter Visit Diagnoses Not on filedocumented in this encounter Additional Health Concerns Infection Onset Date Last Indicated Resolved Time MDRO (multi-drug resistant o rganism) Comment:E.Coli Urine 10/2023, 02/202410/08/2023 10/08/2023 Assessment Noted Time A fall risk assessment has been complete d for the patient 05/01/2024 8:30 AM EST documented as of this encounter Care Teams Recovery Collector Relationship Specialty Start Date End Date Kira Robles MD [address] [place] [address] PCP - General Family Medicine 06/10/13 documented as of this encounter
--- OUTSIDE RECORDS SUMMARY | 2025-01-29 07:33 | XMS_ITS | Encounter Summary ---
Author Organization [facility] Address [address] [place] [address] Care Team Providers Care Crane Hoist Or Lift Operator Name Role Phone Kira Robles MD Primary Care Provider [phone] Encounter Details Date Type Department Care Team [...] Patient last seen 10/20/20. Next appt 04/25/21. [facility] Health Maintenance Topic Date Due ??? Hepatitis [...] Center 04/21/2021 11:00 AM MD Carlos Delong [facility] 04/25/2021 12:00 PM MD CARLOS Roy [facility] Patient Active Problem List: HTN (hypertension) Hyperlipidemia [...] on filedocumented in this encounter Care Teams Crane Hoist Or Lift Operator Relationship Specialty Start Date End Date Kira Robles MD [facility] [place] [address] PCP - General 03/27/18 documented as of this encounter
--- OUTSIDE RECORDS SUMMARY | 2025-01-29 07:33 | XMS_ITS | Encounter Summary ---
Author Organization [facility] Address [facility] [place] [address] Care Team Providers Care Sample Taker Operator Name Role Phone Kira Robles MD Primary Care Provider [phone] Encounter Details Date Type Department Care Team [...] filedocumented in this encounter Care Teams Sample Taker Operator Relationship Specialty Start Date End Date Kira Robles MD [address] [place] [address] PCP - General 03/27/18 documented as of this encounter
--- OUTSIDE RECORDS SUMMARY | 2025-01-29 07:33 | XMS_ITS | Encounter Summary ---
Author Organization [facility] Address [address] [place] [address] Care Team Providers Care Materials Planner Name Role Phone Kira Robles MD Primary Care Provider [phone] Encounter Details Date Type Department Care Team [...] on filedocumented in this encounter Care Teams Materials Planner Relationship Specialty Start Date End Date Kira Robles MD [address] [place] [address] PCP - General 03/27/18 documented as of this encounter
--- OUTSIDE RECORDS SUMMARY | 2025-01-29 07:33 | XMS_ITS | Clinical Summary ---
Author Organization [facility] Address [address] [place] [address] Care Team Providers Care Hat Block Maker Name Role Phone Kira Robles MD Primary Care Provider [phone] Active Problems Problem Noted Date Diagnosed Date [...] Brother 1 Heart attack Brother 2 61 [id number] Brother 3 51 AAA Stroke Father 81 [...] COVID-19 Vaccine (1 - 2023-2 5 season) 2025 Influenza Vaccine (#1) 2025 Lipid Panel 04/15/2026 [...] CHOLESTEROL 160 <200 mg/dL 04/15/2021 9:01 AM Loom Comment: Cholesterol Guidelines: <200 Desirable 200-240 Borderline >240 Undesirable HDL CHOLESTEROL 40(L) >40 mg/dL 04/15/2021 9:01 AM Loom Comment: HDL Guidelines: <40 Undesirable 40-59 Borderline >59 Desirable LDL Cholesterol 99 0 - 130 mg/dL 04/15/2021 9:01 AM Loom Comment: LDL Guidelines: <100 Desirable 100-129 Near to/above Desirable 130-159 Borderline >159 Undesirable Direct (measured) LDL and calculated LDL are not interchangeable tests. CHOL/HDL 4.0 <5 04/15/2021 9:01 AM Loom Comment: TRIGLYCERIDE 104 <150 mg/dL 04/15/2021 9:01 AM Loom Comment: Triglyceride Guidelines: <150 Desirable 150-199 Borderline 200-499 High >499 Very high Based on AHA Guidelines for fasting triglyceride, February 2012. VLDL Cholesterol (External) NOT REPORTED 1 - 30 mg/dL 04/15/2021 9:01 AM Loom 04/15/2021 9:01 AM EST 04/15/2021 9:02 AM EST us Legacy Conversion Provider LAB BLOOD ORDERABLES Final Result [facility] [place] [address], [place] Systems[place]RI[place] [id number] * DEXA BONE DENSITY 2 SITES (01/14/2020 [...] DXA scan lumbar spine and bilateral hips. [employer] scanner serial #[id number] FINDINGS: Prominent degenerative change lumbar spine. L1 [...] DXA scan lumbar spine and bilateral hips. [employer]anner serial #[id number] FINDINGS: Prominent degenerative change lumbar spine. L1 [...] Recently Relevant to Health Maintenance Care Teams Hat Block Maker Relationship Specialty Start Date End Date Kira Robles MD [address] [place] [address] PCP - General 03/27/18
--- OUTSIDE RECORDS SUMMARY | 2025-01-29 07:33 | XMS_ITS | Clinical Summary ---
Author Organization [facility] Address [address] [facility] [address] [facility], [address] [place] [address] Care Team Providers Care Stapler Coil Unit Name Role Phone Kira Robles MD Primary Care Provider [phone] Allergies Active Allergy Reactions Criticality Noted Date [...] Encounters Date Type Department Care Team Description 01/23/2025 Abstract [facility] Acute Care Certified Nursing Assistant [address] [place] [address] Kyle Cabrera MD 11/17/2024 Refill [facility] Acute Care Certified Nursing Assistant [address] [place] [address] Kyle Cabrera MD Medication Refill 10/30/2024 8:20 AM EDT Office Visit [facility] PRIMARY CARE [place]A [address] [place] [phone] Kira Robles MD Permanent atrial fibrillation (HCC) (Primary Dx); Primary hypertension; Gastroesophageal reflux disease without esophagitis; Pure hypercholesterolemia; Age-related osteoporosis without current pathological fracture; Actinic keratosis; Itching from Last 3 Months Immunizations Immunization Administration Dates Next Due COVID-19, MODERNA ALISSA wilson r, Primary or Immunocompromised, (age 12y+), IM, 100 [...] drink = 0.6 oz pur e alcohol) [facility] Utilities Answer Date Recorded In the past 12 months has [employer], gas, oil, or water [employer] threatened to shut off services in your [...] place to sleep or slept in a detention (including now)? No 10/30/2023 Housing Stability Vital Sign Answer Christophe e Recorded In the last 12 months, was t here a time when you were not able to pay the mortgage or rent on time? No 10/30/2024 In the past 12 months, how m any times have you moved where you were living? 0 10/30/2024 At any time in the past 12 m [facility], were you homeless or living in a detention (including now)? No 10/30/2024 Food Insecurity Answer [...] 04/06/2025 10:30 AM EST Office Visit [facility] Acute Care Certified Nursing Assistant [address] [place] [phone] Shar Frias DO [address] [facility] [place] [address] 1 yr f/u 05/04/2025 8:00 AM EST Office Visit [facility] PRIMARY CARE [place] [address] [place] [address] Kira Robles MD [address] [place] [address] Return in about 6 months (around 05/01/2025) for HTN, Hyperlipidemia, gerd, afib, osteoporosis and medicare. Health Maintenance Due Date Last Done Comments Hepatitis C screen 1968 Flu vaccine (#1) 12/19/2024 04/16/2023, , 02/16/2022 COVID-19 Vaccine (2024- season) 2025 04/16/2023, 02/16/2022, 04/19/2021, Additional history exists Annual Wellness Visit (Medicare) 05/02/2025 05/01/2024, 04/30/2023, [...] EDT Age-related osteoporosis without current pathological fracture HM COLONOSCOPY Routine 06/14/2015 Colon cancer screening from Last 3 Months or Most Recently Relevant to Health Maintenance Results * (ABNORMAL) Lipid Panel (04/01/2024 8:11 AM EST) Cholesterol, Total 181 0 - 199 mg/dL 04/01/2024 8:11 AM [employer] Comment: Cholesterol Guidelines: <200 Desirable 200-240 Borderline >240 Undesirable HDL 48 >40 mg/dL 04/01/2024 8:11 AM [employer] Comment: HDL Guidelines: <40 Undesirable 40-59 Borderline >59 Desirable LDL Cholesterol 112(H) 0 - 100 mg/dL 04/01/2024 8:11 AM [employer] Comment: LDL Guidelines: <100 Desirable 100-129 Near to/above Desirable 130-159 Borderline >159 Undesirable Direct (measured) LDL and calculated LDL are not interchangeable tests. Chol/HDL Ratio 3.8 04/01/2024 8:11 AM EST [employer] Triglycerides 106 <150 mg/dL 04/01/2024 8:11 AM [employer] Comment: Triglyceride Guidelines: <150 Desirable 150-199 Borderline 200-499 High >499 Very high Based on AHA Guidelines for fasting triglyceride, February 2012. VLDL 21 1 - 30 mg/dL 04/01/2024 8:11 AM EST [employer] Blood BLOOD SPECIMEN / Unknown 04/01/2024 8:11 AM EST 04/01/2024 8:12 AM EST Kyle Cabrera MD CHEMISTRY ORDERABLES Final Res ult [facility] [address] [facility] [place] [id number] [phone] [place] [phone] [place] [id number] [phone] * JAMES KRISSY DIGITAL SCREEN BILATERAL (03/13/2024 11:00 AM EDT) Anatomical Region Laterality Modality Breast Bilateral Mammography 03/13/2024 11:0 0 AM EDT Impressions 03/18/2024 4:34 PM EDT OVERALL ASSESSMENT: BIRADS: 1 Negative, no evidence of malignancy. A letter of notification will be mailed to the patient. Performing Facility: [facility] [address] [place] [address] Narrative 03/18/2024 4:34 PM EDT HISTORY: Screening. [...] DXA scan lumbar spine and bilateral hips. [employer] scanner serial #[id number] FINDINGS: Prominent degenerative change lumbar spine. L1 [...] DXA scan lumbar spine and bilateral hips. [employer] serial #[id number] FINDINGS: Prominent degenerative change lumbar spine. L1 [...] hip fracture risk is 3.2%. us Kira Robles MD IMG DEXA ORDERABLES Final Res ult * HM COLONOSCOPY (06/14/2015) Narrative Bonifacio Godoy - 06/14/2015 PERIOPERATIVE RECORD PROCEDURAL ENDOSCOPY AT [facility] INTRAOPERATIVE RECORD PATIENT NAME: SAPNA BREEN GENDER: F DATE: 1950 AGE: 64 Years ACTUAL CASE START: 06/14/2015 09:15 PATIENT INFORMATION PATIENT IDENTIFICATION: RENETTABAND CHART CASE GENERAL INFORMATION ACTUAL OR: ENDOSCOPY [...] DIVERTICULOSIS. PATIENT ALLERGIES ALLERGEN:SULFA (SULFONAMIDES) [ ] NURSING HOME ADMISSIONS DIRECTOR VALIDATED STATUS:Confirmed or verified ALLERGEN TYPE:Drug REACTION:NAUSEA, VOMITTING SEVERITY:Mild SENSITIVITY:Allergy REPORTED DATE/TIME:12/10/2012 09:54 ALLERGEN:PENICILLINS [ ] NURSING HOME ADMISSIONS DIRECTOR VALIDATED STATUS:Confirmed or verified ALLERGEN TYPE:Drug REACTION:NAUSEA, VOMITTING SEVERITY:Mild SENSITIVITY:Allergy REPORTED DATE/TIME:12/10/2012 09:54 PATIENT ASSESSMENT LEATHER SPRAYER INTERVIEW: 08:45 : METHOD: Stated NPO COMMENT: NPO since midnight as stated by the patient. DATE/TIME: 06/14/2015 08:47 SKIN CONDITION: WARM, DRY, AND INTACT PATIENT LIMITATIONS: NO LIMITATIONS CASE STAFF Page 1 of 5 on 06/14/2015 11:19 PATIENT NAME: SAPNA BREEN GENDER: F DATE: 1950 AGE: 64 Years ACTUAL CASE START: 06/14/2015 09:15 NAME:NEGAR NELSON CRNA ROLE:ANESTHESIA SALES PROJECT MANAGER TIME IN: 06/14/2015 09:04 : NAME:TERRELL COX LAUREN ROLE:SCRUB MILLINERY BLOCKER TIME IN: 06/14/2015 09:04 : NAME:NADER FARRELL RN ROLE:LEATHER SPRAYER TIME IN: 06/14/2015 09:04 : NAME:ARIADNA WINN [...] ENDO SETTIN/20 SITE: THIGH RIGHT LATERAL ADMINISTERED BY:NADER FARRELL RN USAGE COMMENT:BOVIE SKIN SITE CLEAR PREOPEARTIVE. BOVIE SKIN [...] rganism) Comment:E.Coli Urine 10/2023, 02/202410/08/2023 10/08/2023 Insurance MEDICARE [employer] MEDICARE SUPP MEDICARE [employer] MEDICARE SUPP Advance Directives * Full Code (Latest Code Status on File) Date Activated Date Inactivated Comments 06/14/2015 10:10 AM 06/14/2015 1:00 PM * Full Code Date Activated Date Inactivated Comments 06/14/2015 8:09 AM 06/14/2015 10:10 AM * Full Code Date Activated Date Inactivated Comments 12/10/2012 7:01 AM 12/10/2012 5:08 PM Healthcare Agents on File Name Relationship Healthcare Agent Relationship Communication Jamesdilety Kaye Spouse Primary Decision Maker Care Teams Stapler Coil Unit Relationship Specialty Start Date End Date Kira Robles MD [address] [place] [address] PCP - General Family Medicine 06/10/13
--- OUTSIDE RECORDS SUMMARY | 2025-01-29 07:33 | XMS_ITS | CCD ---
Author Organization [facility] CliniSyks Care Team Providers Care Sleep Manager Name Role Phone Medardo Robles Primary Care Provider [phone] SANDRA, DR RAMOS Admitting Unavailable MISC, DR [...] Provider Medardo Robles MD Primary Care Provider UBALDO ANGULOISH Ángela Admitting Unavailable MEDARDO ROBLES Primary Care Unavailable Medardo Robles MD Primary Care Provider MEDARDO ROBLES Primary Care Physician [phone] ADELE, ATISH P Referring Unavailable ADELE ATISH [...] Unavailable VERHOFF, MEDARDO L. Primary Care Unavailable XIEMNA ARCHULETA Attending Unavailable VERHOFF, MEDARDO L. Primary [...] Vomiting, Unknown (qualifier value), Other (See Comments) [place], [place] (16 sources) Sulfonamides (Antibiotic) Propensity to adverse reactions to drug 1 Nausea And Vomiting [place] (1 source) Penicillin Drug Allergy 7 [facility] Repository (1 source) Sulfonamides (Antibiotic) Drug allergy (disorder) 7 [facility] Repository (20 sources) Penicillins Propensity to adverse reactions to drug 1 Other (See Comments), Nausea And Vomiting [facility] (20 sources) Sulfonamides (Antibiotic); Translations: [SULFA (SULFONAMIDE ANTIBIOTICS)] Propensity to adverse reactions to drug 1 Other (See Comments), [facility]iting [facility] (10 sources) Sulfonamides (Antibiotic); Translations: [sulfa drugs] Drug allergy Unknown (qualifier value) [facility] (3 sources) Penicillin; Translations: [penicillins] Drug Allergy Unknown (qualifier value) [facility] Medications Current Medications Medication Drug Class(es) [...] day(s), # 14 cap(s), Refills(s) 0, Pharmacy: [facility], 163, cm, 01/12/25 13:22:00 [...] Start: 04-26-2023 take 1 capsule by mo [facility] once daily dilTIAZem (CARDIZEM CD) 120 MG extended release capsule Take 1 capsule by mouth daily 90 capsule 3 04/26/2023 Active Start: 05-19-2019 take 1 capsule by mo [facility] every hour Cartia XT 120 mg/24 hours [...] Active Start: 07-11-2021 take 1 capsule by [facility] once daily doxycycline hyclate 100 mg Cap [...] Daily, # 90 tab(s), Refills(s) 3, Pharmacy: [facility], 163, cm, 06/23/24 9:52:00 EST, Height/Length Dosing, 82, kg, 06/23/24 9:52:00 EST, Weight Dosing Start Date: 06/23/24 Status: Ordered Quantity: 90.0 Unit: tab(s) Repeat number: 4 Start: 07-11-2021 take 1 tablet by [facility] once daily hydroCHLOROthiazide (HYDRODIURIL) 50 MG tablet Take 1 tablet by mouth daily 10/19/2022 Active Start: 01-11-2015 End: 09-15-2022 take 1 tablet by mouth once daily hydrochlorothiazide 25 mg Tab 25 mg = 1 tab(s), Oral, Daily, # 90 tab(s), Refills(s) 3, [facility], 163, cm, 04/04/21 11:03:00 EST, Height/Length [...] Active Start: 05-19-2019 take 1 tablet by lpue th twice daily metoprolol 50 mg ER [...] day(s), # 14 cap(s), Refills(s) 0, Pharmacy: [facility], 163, cm, 11/16/23 10:15:00 EDT, Height/Length [...] # 60 tab(s), Refills(s) 11, [facility] [address] 163, cm, 07/26/21 10:30:00 EST, Height/Length Dosing, 84.1, kg, 07/11/21 11:42:00 EST, Weight Dosing Start Date: 11/01/21 Status: Ordered potassium chloride 20 meq powder for oral solution (20 sources) Start: 06-27-2024 End: 06-22-2025 Klor-Con 20 mEq oral powder for reconstitution 20 mEq = 1 packet(s), Oral, BID, X 30 day(s), # 60 packet(s), Refills(s) 11, Pharmacy: [facility], 163, cm, 06/23/24 9:52:00 [...] PLACED TUBE OR TUBE less than 14 Mosotho. To administer dissolved tablet(s) mix with 4 [...] MELVIN, # 60 tab(s), Refills(s) 11, Pharmacy: [facility], 163, cm, 06/23/24 9:52:00 EST, Height/Length Dosing, 82, kg, 06/23/24 9:52:00 EST, Weight Dosing Start Date: 06/23/24 Status: Ordered Start: 11-16-2023 take 1 tablet by lupe th twice daily K-Effervescent 25 mEq oral tablet, effervescent 25 mEq = 1 tab(s), Oral, BID, MELVIN, # 60 tab(s), Refills(s) 11, Pharmacy: [id number], 163, cm, 11/16/23 10:15:00 EDT, Height/Length Dosing, [...] 11-11-2012 11-11-2012 Episodic Other aftercare (1 source) [employer] (current) use of anticoagulants; 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 [address] Medications What How Much When Why Instructions New cephalexin (Keflex 500 mg Cap) 1 Capsules By Mouth Every 12 hours UTI symptoms Duration: 7 Days Pickup at [facility] Unchanged hydrochlorothiazide (hydrochlorothiazide 50 [...] physician if questions or concerns Pharmacy Information [facility]: [address] [place], [place] [id number] [phone] Allergies penicillins (Unknown) sulfa drugs (Unknown) Problems [...] these instructions at home: Medicines ??? Take wyds-dfv-epcwljc and prescription medicines only as told by [...] keep your pee pale yellow. ? Take ojie-jac-lqtbvib or prescription medicines. ? Eat foods that [...] You ma (more content not included)... Normal [facility] Urology Office/Clinic Noteon 01-12-2025 Urology Office/Clinic Note [...] analysis 06/23/24 - 70% CaOx Di, 30% Telfair. KUB 06/17/24 - possible 5mm R renal [...] MD, URL [address] [place] [address] [place] [address] Additional Instructions: sched R then L URS, [...] ESWL o (more content not included)... Normal [facility] Comment on above: Result Comment: Elec [...] reference range. Performed By: #### 6 399, 59885 #### [facility] [address], [address] [place] [address] Financial Underwriter: Sai Saldana MD Calcium [Mass/Vol] 10.0 mg/dL Normal 8.6-10.4 [facility] Comment on above: Performed By: #### 6 399, 12666 #### [facility] of [place] [address] Financial Underwriter: Sai Saldana MD Chloride [Moles/Vol] 108 mmol/L Normal 98-110 [facility] Comment on above: Performed By: #### 6 399, 19392 #### [facility] [place] [address] Financial Underwriter: Sai Saldana MD CO2 [Moles/Vol] 22 mmol/L Normal 20-32 [facility] Comment on above: Performed By: #### 6 399, 53157 #### [facility] [place] [address] Financial Underwriter: Sai Saldana MD Creatinine [Mass/Vol] 0.79 mg/dL Normal 0.60-1.00 [facility] Comment on above: Performed By: #### 6 399, 45083 #### [facility] [place] [address] Financial Underwriter: Sai Saldana MD ELECTROLYTE BALANCE 10 mmol/L (calc) Normal 7-17 [facility] Comment on above: Performed By: #### 6 399, 34625 #### [facility] [place] [address] Financial Underwriter: Sai Saldana MD GFR/1.73 sq M.predicted among non-blacks MDRD (S/P/Bld) [Vol rate/Area] 78 mL/min/{1.73_m2} Normal > OR = 60 [facility] Comment on above: Performed By: #### 6 399, 36823 #### [facility] [place] [address] Financial Underwriter: Sai Saldana MD Glucose [Mass/Vol] 110 mg/dL High 65-99 [facility] Comment on above: Result Comment: Fasting reference interval For someone without known diabetes, a glucose value between 100 and 125 mg/dL is consistent with prediabetes and should be confirmed with a follow-up test. Performed By: #### 6 399, 51306 #### [facility] [place] [address] Financial Underwriter: Sai Saldana MD Potassium [Moles/Vol] 4.1 mmol/L Normal 3.5-5.3 [facility] Comment on above: Performed By: #### 6 399, 78534 #### [facility] [place] [address] Financial Underwriter: Sai Saldana MD Sodium [Moles/Vol] 140 mmol/L Normal 135-146 [facility] Comment on above: Performed By: #### 6 399, 11634 #### [facility] [place] [address] Financial Underwriter: Sai Saldana MD Urea nitrogen [Mass/Vol] 14 mg/dL Normal 7-25 [facility] Comment on above: Performed By: #### 6 399, 90601 #### [facility] [place] [address] Financial Underwriter: Sai Saldana MD CBC (INCLUDES DIFF/PLT)on Basophils (Bld) [#/Vol] 0.03 10*3/uL Normal 0-200 [facility] Comment on above: Performed By: #### 6 399, 75925 #### [facility] [place] [address] Financial Underwriter: Sai Saldana MD Basophils/100 WBC (Bld) 0.5 % Normal [facility] Comment on above: Performed By: #### 6 399, 98913 #### [facility] [place] [address] Financial Underwriter: Sai Saldana MD Eosinophils (Bld) [#/Vol] 0.047 10*3/uL Normal 15-500 [facility] Comment on above: Performed By: #### 6 399, 05550 #### [facility] of [address], [address] [place] [address] Financial Underwriter: Sai Saldana MD Eosinophils/100 WBC (Bld) 0.8 % Normal [facility] Comment on above: Performed By: #### 6 399, 29488 #### [facility] [place] [address] Financial Underwriter: Sai Saldana MD Erythrocyte distribution width (RBC) [Ratio] 12.7 % Normal 11.0-15.0 [facility] Comment on above: Performed By: #### 6 399, 79009 #### [facility] of [address], [address] [place] [address] Financial Underwriter: Sai Saldana MD Hematocrit (Bld) [Volume fraction] 40.1 % Normal 35.0-45.0 [facility] Comment on above: Performed By: #### 6 399, 56983 #### [facility] of [address], [address] [place] [address] Financial Underwriter: Sai Saldana MD Hemoglobin (Bld) [Mass/Vol] 13.3 g/dL Normal 11.7-15.5 [facility] Comment on above: Performed By: #### 6 399, 73169 #### [facility] of [address], [address] [place] [address] Financial Underwriter: Sai Saldana MD Lymphocytes (Bld) [#/Vol] 1.746 10*3/uL Normal 850-3900 [facility] Comment on above: Performed By: #### 6 399, 59707 #### [facility] [place] [address] Financial Underwriter: Sai Saldana MD Lymphocytes/100 WBC (Bld) 29.6 % Normal [facility] Comment on above: Performed By: #### 6 399, 63518 #### [facility] [place] [address] Financial Underwriter: Sai Saldana MD MCH (RBC) [Entitic mass] 31.7 pg Normal 27.0-33.0 [facility] Comment on above: Performed By: #### 6 399, 24075 #### [facility] [place] [address] Financial Underwriter: Sai Saldana MD MCHC (RBC) [Mass/Vol] 33.2 [...] clinical condition. Performed By: #### 6 399, 44332 #### [facility] [place] [address] Financial Underwriter: Sai Saldana MD MCV (RBC) [Entitic vol] 95.7 fL Normal 80.0-100.0 [facility] Comment on above: Performed By: #### 6 399, 71119 #### [facility] [place] [address] Financial Underwriter: Sai Saldana MD Monocytes (Bld) [#/Vol] 0.608 10*3/uL Normal 200-950 [facility] Comment on above: Performed By: #### 6 399, 94512 #### [facility] [place] [address] Financial Underwriter: Sai Saldana MD Monocytes/100 WBC (Bld) 10.3 % Normal [facility] Comment on above: Performed By: #### 6 399, 84877 #### [facility] [place] [address] Financial Underwriter: Sai Saldana MD Neutrophils (Bld) [#/Vol] 3.469 10*3/uL Normal 9679-4816 [facility] Comment on above: Performed By: #### 6 399, 24895 #### [facility] [place] [address] Financial Underwriter: Sai Sadlana MD Neutrophils/100 WBC (Bld) 58.8 % Normal [facility] Comment on above: Performed By: #### 6 399, 51922 #### [facility] [place] [address] Financial Underwriter: Sai Saldana MD Platelet mean volume (Bld) [Entitic vol] 10.6 fL Normal 7.5-12.5 [facility] Comment on above: Performed By: #### 6 399, 85291 #### [facility] [place] [address] Financial Underwriter: Sai Saldana MD Platelets (Bld) [#/Vol] 234 10*3/uL Normal 140-400 [facility] Comment on above: Performed By: #### 6 399, 28387 #### [facility] [place] [address] Financial Underwriter: Sai Saldana MD RBC (Bld) [#/Vol] 4.19 10*6/uL Normal 3.80-5.10 [facility] Comment on above: Performed By: #### 6 399, 45197 #### [facility] [place] [address] Financial Underwriter: Sai Saldana MD WBC (Bld) [#/Vol] 5.9 10*3/uL Normal 3.8-10.8 [facility] Comment on above: Performed By: #### 6 399, 69170 #### [facility] [place] [address] Financial Underwriter: Sai Saldana MD ECG 12 LeadOrdered By: Stephanie Blackwood on 07-29-2024 Atrial Rate [facility] Work Phone: P [place] [facility] Work Phone: P-R Interval [facility] Work Phone: Q-T Interval [facility] Work Phone: Q-T Interval (corrected) [facility] Work Phone: QRS Duration [facility] Work Phone: QTC Calculation (Bezet) [facility] Work Phone: R [place] [facility] Work Phone: T [place] [facility] Work Phone: Ventricular Rate [facility] Work Phone: [facility] Work Phone: Calculus Analysison 06-30-19 25 Calcium oxalate dihydrate Infrared spectroscopy (Stone) [Mass fraction] 70 % Invalid Interpretation Code [facility] Comment on above: Performed By: #### 1 [id number] #### [facility] [address] [place] [address] Calcium oxalate monohydrate (Stone) [Mass fraction] 30 % Invalid Interpretation Code [facility] Comment on above: Performed By: #### 1 [id number] #### [facility] [address] [place] [address] Color (Stone) Borja Invalid Interpretation Code [facility] Comment on above: Performed By: #### 1 [id number] #### [facility] [address] [place] [address] Composition Comment Invalid Interpretation Code [facility] Comment on above: Result Comment: Perc entage (Represents the % composition) Performed By: #### 1 [id number] #### [facility] [address] [place] [address] Disclaimer: Comment Invalid Interpretation Code [facility] Comment on above: Result Comment: This test was developed and its performance characteristics determined by [employer]. It has not been cleared or approved by the Food and Drug Administration. Performed at: [address] [id number] PhD Yancy Banegas Performed By: #### 1 [id number] #### [facility] [address] [place] [address] Laboratory comment Keagan (Report) Comment Invalid Interpretation Code [facility] Comment on above: Result Comment: Patricia frank questions regarding Calculi Analysis contact [facility] at: [phone]. Performed By: #### 1 [id number] #### [facility] [address] [place] [address] Please Note: Comment Invalid Interpretation Code [facility] Comment on above: Result Comment: Calc rachel report will follow via computer, mail or monitor tech delivery. Performed By: #### 1 [id number] #### [facility] [address] [place] [address] Size (Stone) [Entitic vol] 2x2 Invalid Interpretation Code [facility] Comment on above: Result Comment: Mult iple pieces received. Dimensions of the largest piece reported. Performed By: #### 1 [id number] #### [facility] [address] [place] [address] Specimen source subject Nom Comment Invalid Interpretation Code [facility] Comment on above: Result Comment: Not provided Performed By: #### 1 [id number] #### [facility] [address] [place] [address] Stone Photo Comment Invalid Interpretation Code [facility] Comment on above: Result Comment: Phot ograph will follow under a separate cover Performed By: #### 1 [id number] #### [facility] [address] [place] [address] Weight (Stone) 39 mg Invalid Interpretation Code [facility] Comment on above: Performed By: #### 1 [id number] #### [facility] [address] [place] [address] Urology Office/Clinic Noteon 06-23-2024 Urology Office/Clinic Note [...] E&M of Est. Patient Moderate 30-39 Min 48835 Urnls Dip Stick Auto w/o Microscopy POC 27966 Orders: hydrochlorothiazide, 50 mg = 1 tab(s), Oral, Daily, # 90 tab(s), Refills(s) 3, Pharmacy: [facility], 163, cm, 06/23/24 9:52:00 EST, Height/Length Dosing, 82, kg, 06/23/24 9:52:00 EST, Weight Dosing potassium bicarbonate, 25 mEq = 1 tab(s), Oral, BID, MELVIN, # 60 tab(s), Refills(s) 11, Pharmacy: [facility], 163, cm, 06/23/24 9:52:00 EST, Height/Length Dosing, 82, kg, 06/23/24 9:52:00 EST, Weight Dosing Follow-up With When Contact Information DOREEN STEVE, ANAI Gottlieb, URL In 6 months [address] [place] [address] Additional Instructions: Patient Education Kidney Stones, [id number]-[id number] Problem List/Past Medical History Ongoing Anticoagulant long-term [...] virus vaccine, inactivated 02/16/2022 Recorded SARS-CoV-2 (COVID-19) [id number] 02/16/2022 Recorded pneumococcal 20-valent conjugate vaccine 01/09/2022 [...] Dipstick: 1+ (30 mg/dl) (06/23/24 09:49:00) Specific [place] Urine Dipstick: 1.015 (06/23/24 09:49:00) Urine Appearance Urine Dipstick: Clear (06/23/24 09:49:00) Urine Color Urine Dipstick: Yellow (06/23/24 09:49:00) Urobilinogen Urine Dipstick: Normal 0.2-1 EU/dl (06/23/24 09:49:00) pH Urine Dipstick: 8 (06/23/24 09:49:00) Normal [facility] Comment on above: Result Comment: Elec [...] Armstrong Jr., MD 06/17/24 Final result Normal [facility] XR Abdomen Single viewon FINDINGS/IMPRESSION: 1. There may be a 5 mm residual calcification over the inferior pole right kidney, smaller than previously. 2. Calcified uterine fibroids unchanged. 3. Moderate stool. 4. Degenerative changes spine. [facility] RIS CONSOLIDATED EXAM: XR ABDOMEN (KU B) (SINGLE AP VIEW) HISTORY: Uric acid nephrolithiasis COMPARISON: CT abdomen and pelvis 07/13/2021. KUB [place], 12/27/2023. [facility] RIS CONSOL[facility]ATED Navid Armstrong Jr., MD - 06/17/2024 EXAM: XR ABDOMEN (KUB) (SINGLE AP VIEW) HISTORY: Uric acid nephrolithiasis COMPARISON: CT abdomen and pelvis 07/13/2021. KUB [place], 12/27/2023. IMPRESSION: FINDINGS/IMPRESSION: 1. There may be a 5 mm residual calcification over the inferior pole right kidney, smaller than previously. 2. Calcified uterine fibroids unchanged. 3. Moderate stool. 4. Degenerative changes spine. [facility] Radiology Study observation (narrative) [facility] XR Abdomen Single viewOrdere d By: Navid Armstrong on 06-17-2024 [facility] Work Phone: XR CHEST (2 VW)on 04-02-2024 XR CHEST (2 VW) EXAM: XR CHEST (2 VW ) HISTORY: Paroxysmal atrial fibrillation (HCC) COMPARISON: 04/11/2022 IMPRESSION: FINDINGS/IMPRESSION: 1. There might be an atrial appendage occluder present. 2. Heart size normal. 3. Lungs clear. Interpreted by: Navid Armstrong Jr., MD Signed by: Navid Armstrong Jr., MD 04/02/24 Final result Normal [facility] XR Chest 2 Viewson FINDINGS/IMPRESSION: 1. There might be an atrial appendage occluder present. 2. Heart size normal. 3. Lungs clear. [facility] RIS CONSOLIDATED EXAM: XR CHEST (2 VW ) HISTORY: Paroxysmal atrial fibrillation (HCC) COMPARISON: 04/11/2022 [facility] RIS CONSOLIDATED Navid Armstrong Jr., MD - 04/02/2024 EXAM: XR CHEST (2 VW) HISTORY: Paroxysmal atrial fibrillation (HCC) COMPARISON: 04/11/2022 IMPRESSION: FINDINGS/IMPRESSION: 1. There might be an atrial appendage occluder present. 2. Heart size normal. 3. Lungs clear. [facility] X[facility] Chest 2 ViewsOrdered By: Navid Armstrong on 04-02-2024 [facility] Work Phone: CBC with Auto Differentialon 04-01-2024 Basophils (Bld) [#/Vol] 0.02 10*3/uL [facility] Basophils/100 WBC (Bld) 1 % 0 - 2 % [facility] Eosinophils (Bld) [#/Vol] 0.05 10*3/uL [facility] Eosinophils/100 WBC (Bld) 1 % 0 - 5 % [facility] Erythrocyte distribution width (RBC) [Ratio] 13.4 % 12.1 - 15.2 % [facility] Hematocrit (Bld) [Volume fraction] 39.7 % 36.0 - 46.0 % [facility] Hemoglobin (Bld) [Mass/Vol] 13.4 g/dL 12.0 - 16.0 g/dL [facility] Immature granulocytes (Bld) [#/Vol] 0.01 10*3/uL [facility] Immature granulocytes/100 WBC (Bld) 0 % 0 - 5 % [facility] Interpretation and review of laboratory results Abnormal [facility] Lymphocytes/100 WBC (Bld) 39 % 15 - 40 % [facility] Lymphocytes/100 WBC (Bld) 1.57 % [facility] MCH (RBC) [Entitic mass] 32.1 pg 26.0 - 34.0 pg [facility] MCHC (RBC) [Mass/Vol] 33.8 g/dL 31.0 - 37.0 g/dL [facility] MCV (RBC) [Entitic vol] 95.0 fL 80.0 - 100.0 fL [facility] Monocytes/100 WBC (Bld) 10 % High 4 - 8 % [facility] Monocytes/100 WBC (Bld) 0.40 % [facility] Neutrophils/100 WBC (Bld) 49 % 47 - 75 % [facility] Platelet mean volume (Bld) [Entitic vol] 9.5 fL 6.0 - 12.0 fL [facility] Platelets (Bld) [#/Vol] 209 10*3/uL [facility] RBC (Bld) [#/Vol] 4.18 10*6/uL 4.00 - 5.2 0 m/uL [facility] Segmented neutrophils/100 WBC (Bld) 2.00 % Low [facility] WBC other (Bld) [#/Vol] 4.1 [facility] CBC with Diffon 04-01-2024 Abs. Basophil 0.02 k/uL Normal 0.00-0.20 [facility] Comment on above: Performed By: #### Crystal Lazcano, TSHX, CDP, CP #### [facility] [address] [place] [address] Relief Cook: Lazarus Gan MD #### CLAYTON25 #### [address] [address] Relief Cook: Drew Craven MD Abs.Imm.Granulocyte 0.01 k/uL Normal 0.00-0.30 [facility] Comment on above: Performed By: #### Crystal G, TSHX, CDP, CP #### [facility] [address] [place] [address] Relief Cook: Lazarus Gan MD #### CLAYTON25 #### [place] [id number] [place], [place] [id number] Relief Cook: Drew Craven MD Abs.Neutrophil (Seg) 2.00 k/uL Low 2.5-7.0 [facility] Comment on above: Performed By: #### M G, TSHX, CDP, CP #### [facility] [address] [place], [place] [id number] Relief Cook: Lazarus Gan MD #### LIPR, VD25 #### [facility] [place], [place] [id number] Relief Cook: Drew Craven MD Basophils/100 WBC (Bld) 1 % Normal 0-2 [facility] Comment on above: Performed By: #### M G, TSHX, CDP, CP #### [facility] [address] [place], [place] [id number] Relief Cook: Lazarus Gan MD #### LIPR, VD25 #### [address] [id number] Relief Cook: Drew Craven MD Eosinophils (Bld) [#/Vol] 0.05 10*3/uL Normal 0.00-0.40 [facility] Comment on above: Performed By: #### M G, TSHX, CDP, CP #### [facility] [address] [place], [place] [id number] Relief Cook: Lazarus Gan MD #### LIPR, VD25 #### [address] [id number] Relief Cook: Drew Craven MD Eosinophils/100 WBC (Bld) 1 % Normal 0-5 [facility] Comment on above: Performed By: #### M G, TSHX, CDP, CP #### [facility] [address] [place], [place] [id number] Relief Cook: Lazarus Gan MD #### LIPR, VD25 #### [address] [id number] Relief Cook: Drew Craven MD Erythrocyte distribution width (RBC) [Ratio] 13.4 % Normal 12.1-15.2 [facility] Comment on above: Performed By: #### M G, TSHX, CDP, CP #### [facility] [address] [place], [place] [id number] Relief Cook: Lazarus Gan MD #### LIPR, VD25 #### [address] [id number] Relief Cook: Drew Craven MD Hematocrit (Bld) [Volume fraction] 39.7 % Normal 36.0-46.0 [facility] Comment on above: Performed By: #### M G, TSHX, CDP, CP #### [facility] [address] [place] [address] Relief Cook: Lazarus Gan MD #### LIPR, VD25 #### [address] [phone] Relief Cook: Drew Craven MD Hemoglobin (Bld) [Mass/Vol] 13.4 g/dL Normal 12.0-16.0 [facility] Comment on above: Performed By: #### M G, TSHX, CDP, CP #### [facility] [address] [place], [place] [phone] Relief Cook: Lazarus Gan MD #### LIPR, VD25 #### [address] [address] Relief Cook: Drew Craven MD Immature granulocytes/100 WBC (Bld) 0 % Normal 0-5 [facility] Comment on above: Performed By: #### M G, TSHX, CDP, CP #### [facility] [address] [place], [place] [id number] Relief Cook: Lazarus Gan MD #### LIPR, VD25 #### [address] [phone] Relief Cook: Drew Craven MD Lymphocytes (Bld) [#/Vol] 1.57 10*3/uL Normal 1.00-4.80 [facility] Comment on above: Performed By: #### M Jaleesa, TSHX, CDP, CP #### [facility] [address] [place], [place] [id number] Relief Cook: Lazarus Gan MD #### LIPR, VD25 #### [address] [id number] Relief Cook: Drew Craven MD Lymphocytes/100 WBC (Bld) 39 % Normal 15-40 [facility] Comment on above: Performed By: #### Crystal Lazcano, TSHX, CDP, CP #### [facility] [address] [place], [place] [phone] Relief Cook: Lazarus Gan MD #### ROSALINDA, VD25 #### [place] [phone] Relief Cook: Drew Craven MD MCH (RBC) [Entitic mass] 32.1 pg Normal 26.0-34.0 [facility] Comment on above: Performed By: #### Crystal Lazcano, TSHX, CDP, CP #### [facility] [address] [place], [place] [phone] Relief Cook: Lazarus Gan MD #### ROSALINDA, VD25 #### [address] [phone] Relief Cook: Drew Craven MD MCHC (RBC) [Mass/Vol] 33.8 g/dL Normal 31.0-37.0 [facility] Comment on above: Performed By: #### Crystal Lazcano, TSHX, CDP, CP #### [facility] [address] [place] [address] Relief Cook: Lazarus Gan MD #### LIPR, VD25 #### [address] [phone] Relief Cook: Drew Craven MD MCV (RBC) [Entitic vol] 95.0 fL Normal 80.0-100.0 [facility] Comment on above: Performed By: #### M Jaleesa, TSHX, CDP, CP #### [facility] [address] [place] [address] Relief Cook: Lazarus Gan MD #### LIPR, VD25 #### [address] [address] Relief Cook: Drew Craven MD Monocytes (Bld) [#/Vol] 0.40 10*3/uL Normal 0.00-1.00 [facility] Comment on above: Performed By: #### Crystal Lazcano, TSHEstee, CDP, CP #### [facility] [address] [place], [place] [phone] Relief Cook: Lazarus Gan MD #### ROSALINDA, VD25 #### [address] [address] Relief Cook: Drew Craven MD Monocytes/100 WBC (Bld) 10 % High 4-8 [facility] Comment on above: Performed By: #### Crystal Lazcano, TSHX, CDP, CP #### [facility] [address] [place] [address] Relief Cook: Lazarus Gan MD #### ROSALINDA, VD25 #### [address] [address] Relief Cook: Drew Craven MD Neutrophil (Seg) 49 % Normal 47-75 [facility] Comment on above: Performed By: #### M Jaleesa, TSHX, CDP, CP #### [facility] [address] [place] [address] Relief Cook: Lazarus Gan MD #### ROSALINDA, VD25 #### [address] [phone] Relief Cook: Drew Craven MD Platelet mean volume (Bld) [Entitic vol] 9.5 fL Normal 6.0-12.0 [facility] Comment on above: Performed By: #### M G, TSHX, CDP, CP #### [facility] [address] [place], [place] [phone] Relief Cook: Lazarus Gan MD #### LIPR, VD25 #### [address] [address] Relief Cook: Drew Craven MD Platelets (Bld) [#/Vol] 209 10*3/uL Normal 140-450 [facility] Comment on above: Performed By: #### M G, TSHX, CDP, CP #### [facility] [address] [place], [place] [phone] Relief Cook: Lazarus Gan MD #### LIPMariana, VD25 #### [address] [address] Relief Cook: Drew Craven MD RBC (Bld) [#/Vol] 4.18 10*6/uL Normal 4.00-5.20 [facility] Comment on above: Performed By: #### M G, TSHX, CDP, CP #### [facility] [address] [place], [place] [phone] Relief Cook: Lazarus Gan MD #### LIPR, VD25 #### [place] [id number] [place] [address] Relief Cook: Drew Craven MD WBC (Bld) [#/Vol] 4.1 10*3/uL Normal 3.5-11.0 [facility] Comment on above: Performed By: #### M G, TSHX, CDP, CP #### [facility] [address] [place], [place] [phone] Relief Cook: Lazarus Gan MD #### LIPR, VD25 #### [facility] [address] [place], [place] [phone] Relief Cook: Drew Craven MD Comp Metabolic Profon 2023 Albumin [Mass/Vol] 4.1 g/dL Normal 3.5-5.2 [facility] Comment on above: Performed By: #### M G, TSHX, CDP, CP #### [facility] [address] [place], [place] [phone] Relief Cook: Lazarus Gan MD #### LIPR, VD25 #### [address] [phone] Relief Cook: Drew Craven MD Alkaline Phos 59 U/L Normal 35-104 [facility] Comment on above: Performed By: #### M G, TSHX, CDP, CP #### [facility] [address] [place], [place] [phone] Relief Cook: Lazarus Gan MD #### LIPMariana, VD25 #### [address] [phone] Relief Cook: Derw Craven MD ALT [Catalytic activity/Vol] 24 U/L Normal 5-33 [facility] Comment on above: Performed By: #### M G, TSHX, CDP, CP #### [facility] [address] [place], [place] [phone] Relief Cook: Lazarus Gan MD #### LIPR, VD25 #### [address] [address] Relief Cook: Drew Craven MD Anion gap [Moles/Vol] 11 mmol/L Normal 9-17 [facility] Comment on above: Performed By: #### M G, TSHX, CDP, CP #### [facility] [address] [place], [place] [phone] Relief Cook: Lazarus Gan MD #### LIPR, VD25 #### [address] [phone] Relief Cook: Drew Craven MD AST [Catalytic activity/Vol] 20 U/L Normal <32 [facility] Comment on above: Performed By: #### M G, TSHX, CDP, CP #### [facility] [address] [place], [place] [phone] Relief Cook: Lazarus Gan MD #### LIPR, VD25 #### [address] [phone] Relief Cook: Drew Craven MD Bilirubin [Mass/Vol] 0.9 mg/dL Normal 0.3-1.2 [facility] Comment on above: Performed By: #### M G, TSHX, CDP, CP #### [facility] [address] [place], [place] [phone] Relief Cook: Lazarus Gan MD #### LIPR, VD25 #### [address] [phone] Relief Cook: Drew Craven MD BUN/CRE Ratio 14 Normal 9-20 [facility] Comment on above: Performed By: #### M G, TSHX, CDP, CP #### [facility] [address] [place], [place] [phone] Relief Cook: Lazarus Gan MD #### LIPR, VD25 #### [address] [phone] Relief Cook: Drew Craven MD Calcium [Mass/Vol] 10.0 mg/dL Normal 8.6-10.4 [facility] Comment on above: Performed By: #### M G, TSHX, CDP, CP #### [facility] [address] [place] [address] Relief Cook: Lazarus Gan MD #### LIPR, VD25 #### [place] [address] [place], [place] [phone] Relief Cook: Drew Craven MD Chloride [Moles/Vol] 106 mmol/L Normal 98-107 [facility] Comment on above: Performed By: #### M G, TSHX, CDP, CP #### [facility] [address] [place] [address] Relief Cook: Lazarus Gan MD #### LIPR, VD25 #### [address] [phone] Relief Cook: Drew Craven MD CO2 [Moles/Vol] 24 mmol/L Normal 20-31 [facility] Comment on above: Performed By: #### M G, TSHX, CDP, CP #### [facility] [address] [place] [address] Relief Cook: Lazarus Gan MD #### LIPMariana, VD25 #### [address] [phone] Relief Cook: Drew Craven MD Creatinine [Mass/Vol] 0.7 mg/dL Normal 0.5-0.9 [facility] Comment on above: Performed By: #### M G, TSHX, CDP, CP #### [facility] [address] [place] [address] Relief Cook: Lazarus Gan MD #### LIPR, VD25 #### [address] [phone] Relief Cook: Drew Craven MD GFR/1.73 sq M.predicted among non-blacks MDRD (S/P/Bld) [Vol rate/Area] mL/min/{1.73_m2} Normal >60 [facility] Comment on above: Result Comment: These [...] #### M G, TSHX, CDP, CP #### [facility] [address] [place], [place] [phone] Relief Cook: Lazarus Gan MD #### CLAYTON25 #### [place] [address] [place] [address] Relief Cook: Drew Craven MD Glucose [Mass/Vol] 117 mg/dL High 70-99 [facility] Comment on above: Performed By: #### M Jaleesa, TSHX, CDP, CP #### [facility] [address] [place], [place] [phone] Relief Cook: Lazarus Gan MD #### ROSALINDA VD25 #### [address] [phone] Relief Cook: Drew Craven MD Potassium [Moles/Vol] 3.7 mmol/L Normal 3.7-5.3 [facility] Comment on above: Performed By: #### M Jaleesa, TSHX, CDP, CP #### [facility] [address] [place] [address] Relief Cook: Lazarus Gan MD #### ROSALINDA VD25 #### [address] [phone] Relief Cook: Drew Craven MD Protein [Mass/Vol] 7.1 g/dL Normal 6.4-8.3 [facility] Comment on above: Performed By: #### M G, TSHX, CDP, CP #### [facility] [address] [place] [address] Relief Cook: Lazarus aGn MD #### LIPR, VD25 #### [facility] [address] [place] [address] Relief Cook: Drew Craven MD Sodium [Moles/Vol] 141 mmol/L Normal 135-144 [facility] Comment on above: Performed By: #### M G, TSHX, CDP, CP #### [facility] [address] [place] [address] Relief Cook: Lazarus Gan MD #### LIPR, VD25 #### [facility] [place] [address] Relief Cook: Drew Craven MD Urea nitrogen [Mass/Vol] 10 mg/dL Normal 8-23 [facility] Comment on above: Performed By: #### M G, TSHX, CDP, CP #### [facility] [address] [place] [address] Relief Cook: Lazarus Gan MD #### LIPR, VD25 #### [facility] [address] [place] [address] Relief Cook: Drew Craven MD Comprehensive Metabolic Pane [facility] 04-01-2024 Albumin [Mass/Vol] 4.1 g/dL 3.5 - 5.2 g/dL [facility] ALP [Catalytic activity/Vol] 59 U/L 35 - 104 U/L [facility] ALT [Catalytic activity/Vol] 24 U/L 5 - 33 U/L [facility] Anion gap [Moles/Vol] 11 mmol/L 9 - 17 mmol/L [facility] AST [Catalytic activity/Vol] 20 U/L NINF - 32 U/L [facility] Bilirubin [Mass/Vol] 0.9 mg/dL 0.3 - 1 .2 mg/dL [facility] Calcium [Mass/Vol] 10.0 mg/dL 8.6 - 10. 4 mg/dL [facility] Chloride [Moles/Vol] 106 mmol/L 98 - 10 7 mmol/L [facility] CO2 [Moles/Vol] 24 mmol/L 20 - 31 mmol/L [facility] Creatinine [Mass/Vol] 0.7 mg/dL 0.5 - 0.9 mg/dL [facility] Kimani Solis Rate - PINF [facility] Comment on above: These results are [...] 117 mg/dL High 70 - 99 mg/dL [facility] Interpretation and review of laboratory results Abnormal [facility] Potassium [Moles/Vol] 3.7 mmol/L 3.7 - 5.3 mmol/L [facility] Protein [Mass/Vol] 7.1 g/dL 6.4 - 8.3 g/dL [facility] Sodium [Moles/Vol] 141 mmol/L 135 - 144 mmol/L [facility] Urea nitrogen [Mass/Vol] 10 mg/dL 8 - 23 mg/dL [facility] Urea nitrogen/Creatinine [Mass ratio] 14 mg/mg 9 - 20 [facility] EKG 12 LeadOrdered By: Unkno wn Result on 04-01-2024 Atrial Rate 64 BPM [facility] P [place] 64 degrees [facility] P-R Interval 204 ms [facility] Q-T Interval 408 ms [facility] QRS Duration 84 ms [facility] QTc Calculation (Bazett) 420 ms [facility] R [place] 34 degrees [facility] T [place] 23 degrees [facility] Ventricular Rate 64 BPM [facility] EKG 12 Leadon 04-01-2024 Normal sinus rhythm Nonspecific ST abnormality Abnormal ECG When compared with ECG of 09-APR-2023 08:33, No significant change was found [facility] Result, Unknown Provider - 04/01/2024 Normal sinus rhythm Nonspecific ST abnormality Abnormal ECG When compared with ECG of 09-APR-2023 08:33, No significant change was found [facility] Lipid Panelon 04-01-2024 Cholesterol [Mass/Vol] 181 mg/dL 0 - 199 mg/dL [facility] Comment on above: Cholesterol Guidelines: <200 Desirable 200-240 Borderline >240 Undesirable Cholesterol in HDL [Mass/Vol] 48 mg/dL 40 - PINF mg/dL [facility] Comment on above: HDL Guidelines: <40 Undesirable 40-59 Borderline >59 Desirable Cholesterol in LDL [Mass/Vol] 112 mg/dL High 0 - 100 mg/dL [facility] Comment on above: LDL Guidelines: <100 Desirable 100-129 Near to/above Desirable 130-159 Borderline >159 Undesirable Direct (measured) LDL and calculated LDL are not interchangeable tests. Cholesterol in VLDL [Mass/Vol] 21 mg/dL 1 - 30 mg/dL [facility] Cholesterol.total/Ch olesterol in HDL [Mass ratio] 3.8 {ratio} [facility] Interpretation and review of laboratory results Abnormal [facility] Triglyceride [Mass/Vol] 106 mg/dL NINF - 150 mg/dL [facility] Comment on above: Triglyceride Guidelines: <150 Desirable 150-199 Borderline 200-499 High >499 Very high Based on AHA Guidelines for fasting triglyceride, February 2012. Lipid Profileon 04-01-2024 Cholesterol [Mass/Vol] 181 mg/dL Normal 0-199 [facility] Comment on above: Result Comment: Cholesterol Guidelines: <200 Desirable 200-240 Borderline >240 Undesirable Performed By: #### M G, TSHX, CDP, CP ####[facility] [address] [place] [address] Lab Director: Lazarus Gan MD#### LIPMariana, VD25 ####[facility] [address] [place] [address] Lab Director: Drew Craven MD Cholesterol in HDL [Mass/Vol] 48 mg/dL Normal >40 [facility] Comment on above: Result Comment: HDL Guidelines: <40 Undesirable 40-59 Borderline >59 Desirable Performed By: #### JENNIFER Carter, BOBBI, CP ####[facility] [address] [place] [address] Lab Director: Lazarus Gan MD#### LIPR, VD25 ####[facility] [address] [place] [address] Lab Director: Drew Craven MD Cholesterol in LDL [Mass/Vol] 112 mg/dL High 0-100 [facility] Comment on above: Result Comment: LDL Guidelines: <100 Desirable 100-129 Near to/above Desirable 130-159 Borderline >159 Undesirable Direct (measured) LDL and calculated LDL are not interchangeable tests. Performed By: #### JENNIFER Carter, BOBBI, CP ####[facility] [address] [place] [address] Lab Director: Lazarus Gan MD#### LIPR, VD25 ####[facility] [place] [address] Lab Director: Drew Craven MD Cholesterol in VLDL [Mass/Vol] 21 mg/dL Normal 1-30 [facility] Comment on above: Performed By: #### Crystal Lazcano, JENNIFER, BOBBI, CP ####[facility] [address] [place] [address] Lab Director: Lazarus Gan MD#### LIPR, VD25 ####[facility] [place] [address] Lab Director: Drew Craven MD Cholesterol.total/Ch olesterol in HDL [Mass ratio] 3.8 {ratio} Normal [facility] Comment on above: Performed By: #### Crystal Lazcano, TSHEstee, BOBBI, CP ####[facility] [address] [place], [place] [id number] Lab Director: Lazarus Gan MD#### LIPMariana, VD25 ####[facility] [address] [place], [place] 1425108 Lab Director: Drew Craven MD Triglyceride [Mass/Vol] 106 mg/dL Normal <150 [facility] Comment on above: Result Comment: Triglyceride Guidelines: <150 Desirable 150-199 Borderline 200-499 High >499 Very high Based on AHA Guidelines for fasting triglyceride, February 2012. Performed By: #### M Jaleesa, TSHX, CDP, CP ####[facility] [address] [place], [place] [phone] Lab Director: Lazarus Gan MD#### ROSALINDA, VD25 ####[facility] [address] [place], [place] [id number] lab Director: Drew Craven MD Magnesiumon 04-01-2024 Magnesium [Mass/Vol] 2.1 mg/dL 1.6 - 2 .6 mg/dL [facility] Magnesium [Mass/Vol] 2.1 mg/dL Normal 1.6-2.6 [facility] Comment on above: Performed By: #### M Jaleesa, TSHX, CDP, CP #### [facility] [address] [place], [place] [phone] Relief Cook: Lazarus Gan MD #### ROSALINDA VD25 #### [facility] [address] [place], [place] [phone] Relief Cook: Drew Craven MD No Panel Informationon 04-01 [facility] TSH w/reflex to FT4on 2023 Thyroid Stim. Horm. 2.64 uIU/mL Normal 0.30-5.00 [facility] Comment on above: Performed By: #### M G, TSHX, CDP, CP #### [facility] [address] [place], [place] [phone] Relief Cook: Lazarus Gan MD #### LIPR, VD25 #### [employer] [address] [place], [place] [phone] Relief Cook: Drew Craven MD TSH with Reflexon 04-01-2024 TSH Qn 2.64 m[IU]/L [facility] Vitamin D 25 Hydroxyon 04-01 25-hydroxyvitamin D3 [Mass/Vol] 54.5 ng/mL 30.0 - 100.0 ng/mL [facility] Comment on above: Reference Range: Vitamin D status Range Deficiency <20 ng/mL Mild Deficiency 20-30 ng/mL Sufficiency 30-100 ng/mL Toxicity >100 ng/mL Vitamin D 25 OHon 04-01-2024 Vitamin D 25 OH 54.5 ng/mL Normal 30.0-100.0 [facility] Comment on above: Result Comment: Reference Range: Vitamin D status Range Deficiency <20 ng/mL Mild Deficiency 20-30 ng/mL Sufficiency 30-100 ng/mL Toxicity >100 ng/mL Performed By: #### M G, TSHX, CDP, CP ####[facility] [address] [place] [address] Lab Director: Lazarus Gan MD#### ROSALINDA, VD25 ####[employer] [place], [place] 2846008 Lab Director: Drew Craven MD XR Chest 2 Viewson Radiology Study observation (narrative) [facility] KRISSY DIGITAL SCREEN BILA TERALon 03-18-2024 [facility] KRISSY DIGITAL SCREEN BILATERAL HISTORY: Screening. Family [...] be mailed to the patient. Performing Facility: [facility] [address] [place], [place] [address] Interpreted by: Navid Armstrong Jr., MD Signed by: Navid Armstrong Jr., MD 03/18/24 Final result Normal [facility] Cult,Urineon 03-05-2024 Cult,Urine Specimen Description .CLEAN CATCH [...] Tobramycin 8 INTERMEDIATE Trimethoprim/Sulfa >=320 RESISTANT Resistant [facility] Comment on above: Performed By: #### U #### [facility] [address] [place] [address] Relief Cook: Drew Craven MD [facility] [address] [place] [address] Relief Cook: Lazarus Gan MD C Urineon 12-27-2023 Bacteria [...] Locations R1: This test was performed at: [facility], [address] [place] [address], [id number] , [place], [facility] Comment on above: Performed By: #### 2 [id number] #### [facility] [address] [place] [address] Ambulatory Visit Summaryon 0 12-24-2023 Ambulatory Visit [...] for choosing us for your care. Lawson [facility] Ambulatory Visit Summaryon 0 11-16-2023 Ambulatory [...] SANDRA SAMSON, Rachel Peña, URRamiro When: Where: [address] [place] [address]- Medications What How Much When Instructions Unchanged [...] ? 8 oz (237 mL) of milk, qjmztzg-lqrhtepfhlka-s airy milk, and calcium-fortifiedfruit juice. Calcium-fortified means [...] textured (more content not included)... Normal [facility] Urology Office/Clinic Noteon 11-16-2023 Urology Office/Clinic [...] on GoodRx for Effer-K 25mEq bid at [employer], it should only be $15-16. Will switch pt back to Effer-K 25mEq bid for appropriate stone prevention. Reports she tries to drink enough water, unsure of volume. CT AP w IV con 07/13/21 [facility] - no large or obstructing [...] Information SANDRA SAMSON, Rachel Peña, UR [address] [place] [address]- Additional Instructions: Sched R ESWL Patient Education [...] virus vaccine, inactivated 02/16/2022 Recorded SARS-CoV-2 (COVID-19) [id number] 02/16/2022 Recorded pneumococcal 20-valent co (more content not included)... Normal [facility] Comment on above: Result Comment: Elec [...] Tobramycin 4 SUSCEPTIBLE Trimethoprim/Sulfa >=320 RESISTANT Resistant [facility] Comment on above: Performed By: #### U #### [facility] [place] [address] Relief Cook: Drew Craven MD [facility] [address] [place] [address] Relief Cook: Lazarus Gan MD Cult,Urineon 10-07-2023 Cult,Urine Specimen [...] Tobramycin 2 SUSCEPTIBLE Trimethoprim/Sulfa >=320 RESISTANT Resistant [facility] Comment on above: Performed By: #### U #### [facility] [address] [place] [address] Relief Cook: Drew Craven MD [facility] [address] [place] [address] Relief Cook: aLzarus Gan MD ECG 12 leadon 03-20-2023 Atrial Rate [facility] P [place] [facility] P-R Interval [facility] Q-T Interval [facility] Q-T Interval (corrected) [facility] QRS Duration [facility] QTC Calculation (Bezet) [facility] R [place] [facility] T [place] [facility] Ventricular Rate [facility] CT CCTA HEART (LINE ANALYST READ)on 03-15-2023 CT CCTA HEART (LINE ANALYST READ) Cardiac Morphology CTA Prior to Cardioversion CPT code: 42067 Patient Name: Sapna Breen Age: 72 y.o. Requesting Physician: Interpreting Retail Sales Vitamin Consultant:: Kaity Kinney M.D. Primary Care Physician: Medardo [...] Image Quality: Good. No significant artifacts. Scanner: [employer] DLP: 247 mGy Radiation dose reduction was [...] SunMar 15, 2023 9:43:09 AM EDT Normal [facility] Basic metabolic 2000 panelon 06-19-2023 Anion gap [Moles/Vol] 11 mmol/L 10 - 20 mmol/L [facility] Calcium [Mass/Vol] 10.4 mg/dL High 8.4 - 10. 2 mg/dL [facility] Chloride [Moles/Vol] 110 mmol/L High 98 - 10 8 mmol/L [facility] Creatinine [Mass/Vol] 0.91 mg/dL 0.60 - 1.20 mg/dL [facility] GFR/1.73 sq M.predicted CKD-EPI (S/P/Bld) [Vol rate/Area] 67 - PINF [facility] Comment on above: Estimated GFR was ca lculated using the 2020 CKD-EPI creatinine equation. Glucose [Mass/Vol] 136 mg/dL High 65 - 99 mg/dL [facility] HCO3 [Moles/Vol] 22 mmol/L 21 - 32 mmol/L [facility] Interpretation and review of laboratory results Abnormal [facility] Potassium [Moles/Vol] 3.4 mmol/L Low 3.5 - 5.1 mmol/L [facility] Sodium [Moles/Vol] 140 mmol/L 135 - 145 mmol/L [facility] Urea nitrogen [Mass/Vol] 14 mg/dL 8 - 25 mg/dL [facility] Urea nitrogen/Creatinine [Mass ratio] 15.4 mg/mg 10.0 - 20.0 [facility] Laborator y Services has implemented the eGFR calculation approach that does not have a coefficient for race that conforms to the NKF-ASN Task Force Recommendations. [facility] CT PULMONARY VEIN WITH RECON STRUCTIONS [...] contrast. CT pulmonary vein protocol was utilized. Retail Sales Vitamin Consultant will interpret the pulmonary vein portion of [...] for dedicated Watchman device and cardiac evaluation. /[employer] Workstation ID: [id number] Dictated by: KAYE VAZQUEZ on SunMar 15, 2023 9:14:22 AM EDT Transcribed by: RAHEL RUSS on SunMar 15, 2023 9:20:35 AM EDT Finalized by: KAYE VAZQUEZ on [facility] Mar 15, 2023 4:56:13 PM EDT Normal [facility] Comment on above: Order Comment: Injur y/Trauma or Illness?:Illness/Other How long have you had these symptoms (acute/chronic)?:Acute Reason for exam?:6 month f/u LAAO, supplemental read Type of Exam?:Subsequent/Follow-up Additional signs and symptoms?: ECG 12 leadon 11-06-2022 Atrial Rate [facility] P [place] [facility] P-R Interval [facility] Q-T Interval [facility] Q-T Interval (corrected) [facility] QRS Duration [facility] QTC Calculation (Bezet) [facility] R [place] [facility] T [place] [facility] Ventricular Rate [facility] Basic metabolic 2000 panelon 09-15-2022 Anion gap [Moles/Vol] 10 mmol/L 10 - 20 mmol/L [facility] Calcium [Mass/Vol] 9.6 mg/dL 8.4 - 10. 2 mg/dL [facility] Chloride [Moles/Vol] 113 mmol/L High 98 - 10 8 mmol/L [facility] Creatinine [Mass/Vol] 0.78 mg/dL 0.60 - 1.20 mg/dL [facility] GFR/1.73 sq M.predicted CKD-EPI (S/P/Bld) [Vol rate/Area] 80 - PINF [facility] Comment on above: Estimated GFR was ca lculated using the 2020 CKD-EPI creatinine equation. Glucose [Mass/Vol] 167 mg/dL High 65 - 99 mg/dL [facility] HCO3 [Moles/Vol] 24 mmol/L 21 - 32 mmol/L [facility] Interpretation and review of laboratory results Abnormal [facility] Potassium [Moles/Vol] 4.2 mmol/L 3.5 - 5.1 mmol/L [facility] Sodium [Moles/Vol] 143 mmol/L 135 - 145 mmol/L [facility] Urea nitrogen [Mass/Vol] 16 mg/dL 8 - 25 mg/dL [facility] Urea nitrogen/Creatinine [Mass ratio] 20.5 mg/mg High 10.0 - 20.0 [facility] Laborator y Services has implemented the eGFR calculation approach that does not have a coefficient for race that conforms to the NKF-ASN Task Force Recommendations. [facility] CBC panel Auto (Bld)on 09-15 Erythrocyte distribution width (RBC) [Entitic vol] 14.4 % 11.6 - 14.8 % [facility] Hematocrit (Bld) [Volume fraction] 36.9 % 36.0 - 46.0 % [facility] Hemoglobin (Bld) [Mass/Vol] 11.8 g/dL Low 12.0 - 16.0 g/dL [facility] Interpretation and review of laboratory results Abnormal [facility] MCH (RBC) [Entitic mass] 31.1 pg 26.0 - 34.0 pg [facility] MCHC (RBC) [Mass/Vol] 32.0 g/dL 31.0 - 37.0 g/dL [facility] MCV (RBC) [Entitic vol] 97.1 fL 80.0 - 100.0 fL [facility] Nucleated RBC (Bld) [#/Vol] 0.00 10*3/uL [facility] Nucleated RBC/100 WBC (Bld) [Ratio] 0.0 % [facility] Platelet mean volume (Bld) [Entitic vol] 10.4 fL 9.4 - 12.4 fL [facility] Platelets (Bld) [#/Vol] 199 10*3/uL [facility] RBC (Bld) [#/Vol] 3.80 10*6/uL Low [facility] WBC (Bld) [#/Vol] 8.22 10*3/uL [facility] ECHOCARDIOGRAM LIMITEDon ECHOCARDIOGRAM LIMITED Patient Info Name: SAPNA BREEN Age: 71 years : 1950 Gender: Female Ht: 163 cm Wt: 83 kg BSA: 1.97 m2 HR: 57 bpm BP: 111 / 68 mmHg Technical Quality: Good Exam Date: 09/15/2022 6:15 AM Patient Status: Inpatient Piece Meat Trimmer: Araseli Blanton RCDS Exam Type: ECHOCARDIOGRAM LIMITED Study Info Indications I31.3 - Pericardial effusion (noninflammatory) Referring Physician: JUNIOR Ledezma; [id number] BMI: 31.41 kg/m2 Summary 1. A Limited [...] Kaity Kinney MD on 09/15/2022 08:53 AM [facility] Echocardiogram limitedon Patient Info Name: SAPNA BREEN Age: 71 years : 1950 Gender: Female Ht: 163 cm Wt: 83 kg BSA: 1.97 m2 HR: 57 bpm BP: 111 / 68 mmHg Technical Quality: Good Exam Date: 09/15/2022 6:15 AM Patient Status: Inpatient Piece Meat Trimmer: Araseli Blanton RCDS Exam Type: ECHOCARDIOGRAM LIMITED Study Info Indications I31.3 - Pericardial effusion (noninflammatory) Referring Physician: JUNIOR Ledezma; [id number] BMI: 31.41 kg/m2 Summary 1. A Limited [...] Kaity Kinney MD on 09/15/2022 08:53 AM [employer] Atul, Kaity goodrich MD - 09/15/2022 Patient Info Name: SAPNA BREEN Age: 71 years : 1950 Gender: Female Ht: 163 cm Wt: 83 kg BSA: 1.97 m2 HR: 57 bpm BP: 111 / 68 mmHg Technical Quality: Good Exam Date: 09/15/2022 6:15 AM Patient Status: Inpatient Piece Meat Trimmer: Araseli Blanton RCDS Exam Type: ECHOCARDIOGRAM LIMITED Study Info Indications I31.3 - Pericardial effusion (noninflammatory) Referring Physician: JUNIOR Ledezma; [id number] BMI: 31.41 kg/m2 Summary 1. A Limited [...] Kaity Kinney MD on 09/15/2022 08:53 AM [facility] Radiology Study observation (narrative) [facility] Echocardiogram limitedOrdere d By: Kaity Kinney on 09-15-2022 [facility] Work Phone: XR CHEST AP/PA AND [...] SunSep 15, 2022 7:56:13 AM EDT Normal [facility] Comment on above: Order Comment: Injur [...] see above for discussion. Workstation ID: [id number] [facility] Radiology Study observation (narrative) [facility] XR Chest AP/PA and LATOrdere d By: Octavia Molina on 09-15-2022 [facility] Work Phone: ACT Coag (Bld)on 09-14-2022 Kaolin activated time Qn (Bld) 275 seconds [facility] Blood type and Indirect anti body screen panel (Bld)on 09-14-2022 ABO and Rh group Nom (Bld) Blood group O Rh(D) positive [facility] Blood group antibody screen Ql Negative [facility] Specimen Expires 09/17/2022 23:59 EST [facility] Cardiac Catheterizationon [facility] Radiology Study observation (narrative) [facility] ECHO DELMAR INTRAOP TRANSCATHET ER PROCEDUREon 09-14-2022 ECHO DELMAR INTRAOP TRANSCATHETER PROCEDURE Patient Info Name: SAPNA BREEN Age: 71 years : 1950 Gender: Female Ht: 163 cm Wt: 83 kg BSA: 1.97 m2 HR: 80 bpm BP: 172 / 90 mmHg Heart Rhythm: Atrial Fibrillation Technical Quality: Good Exam Date: 09/14/2022 11:18 AM Patient Status: Outpatient Piece Meat Trimmer: Merry Ramirez RCDS Exam Type: ECHO DELMAR INTRAOP TRANSCATHETER PROCEDURE Study Info Indications I48.91 - Unspecified atrial fibrillation Referring Physician: [id number] Roberts; [id number] BMI: 31.41 kg/m2 Summary 1. A complete [...] an iatrogenic atrial septal intra-atrial shunt with qbms-gx-oczgk flow on color Doppler. 3. The left [...] Antonio MD on 09/14/2022 03:22 PM Normal [facility] Echocardiogram intraop DELMAR g kennedy 09-14-2022 Patient Info Name: SAPNA BREEN Age: 71 years : 1950 Gender: Female Ht: 163 cm Wt: 83 kg BSA: 1.97 m2 HR: 80 bpm BP: 172 / 90 mmHg Heart Rhythm: Atrial Fibrillation Technical Quality: Good Exam Date: 09/14/2022 11:18 AM Patient Status: Outpatient Piece Meat Trimmer: Merry Ramirez RCDS Exam Type: ECHO DELMAR INTRAOP TRANSCATHETER PROCEDURE Study Info Indications I48.91 - Unspecified atrial fibrillation Referring Physician: ADELE Syed; [id number] BMI: 31.41 kg/m2 Summary 1. A complete [...] an iatrogenic atrial septal intra-atrial shunt with xnck-xv-imrvd flow on color Doppler. 3. The left [...] Michelle Antonio MD on 09/14/2022 03:22 PM [facility] Michelle Antonio M D - 09/14/2022 Patient Info Name: SAPNA BREEN Age: 71 years : 1950 Gender: Female Ht: 163 cm Wt: 83 kg BSA: 1.97 m2 HR: 80 bpm BP: 172 / 90 mmHg Heart Rhythm: Atrial Fibrillation Technical Quality: Good Exam Date: 09/14/2022 11:18 AM Patient Status: Outpatient Piece Meat Trimmer: Merry Ramirez RCDS Exam Type: ECHO DELMAR INTRAOP TRANSCATHETER PROCEDURE Study Info Indications I48.91 - Unspecified atrial fibrillation Referring Physician: ADELE Syed; [id number] BMI: 31.41 kg/m2 Summary 1. A complete [...] an iatrogenic atrial septal intra-atrial shunt with zoih-af-biaar flow on color Doppler. 3. The left [...] Michelle Antonio MD on 09/14/2022 03:22 PM [facility] Radiology Study observation (narrative) [facility] Echocardiogram intraop DELMAR g uidanceOrdered By: Michelle Antonio on 09-14-2022 [facility] Work Phone: INR Coag (PPP) [Relative lana e]Ordered By: Fuentes Kovacs on 09-14-2022 Interpretation and review of laboratory results Normal [facility] PT Coag (PPP) [Time] 13.7 s [facility] During the induction phase of oral anticoagulation, the INR may not reflect the anticoagulation status of the patient. Therapeutic ranges for INR's are: Most clinical situations: INR 2.0-3.0 Mechanical Prosthetic Valve: INR 2.5-3.5 Critical: INR >5.0 [facility] Laboratory - Blood bankon ABO and Rh group Nom (Bld) 5100 [facility] ABO and Rh group Nom (Bld) Blood group O Rh(D) positive [facility] No Panel Informationon 09-14 Cross Match Compatible [facility] Product ID Red Blood Cells [facility] Status Info Ready for issue [facility] PT/INROrdered By: Fuentes zuñiga on 09-14-2022 INR Coag (PPP) [Relative time] 1.1 {INR} 0.8 - 1.1 [facility] Prepare RBC: 2 Unitson 09-14 Product Code [id number] [facility] Product Code [id number] [facility] Unit Number [id number] [facility] Unit Number [id number] [facility] ECG 12 leadon 08-22-2022 Atrial Rate [facility] [place] [facility] P-R Interval [facility] Q-T Interval [facility] Q-T Interval (corrected) [facility] QRS Duration [facility] QTC Calculation (Bezet) [facility] R [place] [facility] T [place] [facility] Ventricular Rate [facility] th [facility] Electrolyte Panelon 10-11-19 Anion gap [Moles/Vol] 10 mmol/L 9 - 17 mmol/L [facility] Chloride [Moles/Vol] 110 mmol/L High 98 - 10 7 mmol/L [facility] CO2 [Moles/Vol] 23 mmol/L 20 - 31 mmol/L [facility] Interpretation and review of laboratory results Abnormal [facility] Potassium [Moles/Vol] 4.0 mmol/L 3.7 - 5.3 mmol/L [facility] Sodium [Moles/Vol] 143 mmol/L 135 - 144 mmol/L [facility] FISHon 07-20-2021 BLADDER CANCER FISH FINDINGS Comment [facility] Comment on above: Result Comment: Nega tive UroVysion Result Fluorescence in situ hybridization (FISH) of cells recovered from urine was performed using the [employer] UroVysion Kit. A minimum of twenty-five cells was examined, and an abnormal signal pattern was not detected, indicating a NEGATIVE result. The performance characteristics of this test have been validated by [employer]. A positive result is the detection of four or more cells with greater than two signals for at least two chromosomes (3, and/or 7, and/or 17) and/or twelve or more cells with no signal for chromosome 9. Probes: 3cen(D3Z1), 7cen(D7Z1), 9p21(p16), 17cen(D17Z1) Performed By: #### F ISHUV #### [facility] [address] [place] [id number] [address] Red Longo CLINICAL DATA Comment Normal [facility] Comment on above: Result Comment: No c linical data specified Performed By: #### F ISHUV #### [facility] [address] [place] [address] Dr. Red Longo CPT CODES Comment Normal [facility] Comment on above: Result Comment: [id number] Performed By: #### F ISHUV #### [facility] [address] [place] [address] Dr. Red Longo ELECTRONICALLY SIGNED Comment Normal [facility] Comment on above: Result Comment: Josiah Hairston MD. Performed By: #### F ISHUV #### [facility] [address] [place] [address] Dr. Red Longo SPECIMEN DESCRIPTION Comment [facility] Comment on above: Result Comment: Rece ived is 60ml of yellow, cloudy, preserved urine. Performed By: #### F ISHUV #### [facility] [address] [place] [address] Dr. Red Longo Specimen type Nom (Spec) Comment Normal [facility] Comment on above: Result Comment: Unsp ecified Collection Method Performed By: #### F ISHUV #### [facility] [address] [place] [address] Dr. Red Longo BUN & Creatinineon 2 Creatinine [Mass/Vol] 0.73 mg/dL 0.50 - 0.90 mg/dL [facility] GFR >60 >60 mL/min [facility] GFR Non- >60 >60 mL/min [facility] GFR/1.73 sq M.predicted MDRD (S/P/Bld) [Vol rate/Area] [facility] Comment on above: Average GFR for 70 o r more years old: 75 mL/min/1.73sq m Chronic Kidney Disease: <60 mL/min/1.73sq m Kidney failure: <15 mL/min/1.73sq m eGFR calculated using average adult body mass. Additional eGFR calculator available at: http://www.[employer] Network/multiple_crcl_2012.htm Urea nitrogen (BldV) [Mass/Vol] 14 mg/dL 8 - 23 mg/dL [facility] Electrolyte Panelon 07-13-19 22 Anion gap [Moles/Vol] 12 mmol/L 9 - 17 mmol/L [facility] Chloride [Moles/Vol] 105 mmol/L 98 - 10 7 mmol/L [employer] CO2 [Moles/Vol] 23 mmol/L 20 - 31 mmol/L [facility] Potassium [Moles/Vol] 3.8 mmol/L 3.7 - 5.3 mmol/L [facility] [employer] Sodium [Moles/Vol] 140 mmol/L 135 - 144 mmol/L [employer] No Panel Informationon 07-13 [facility] CYTOLOGYon 07-11-2021 SENT TO REF LAB 07/12/21 Normal [facility] Comment on above: Performed By: #### C YTO #### [facility] [address] [address] [address] Red Longo XR KUB 1 VIEWon [...] ANDREW POLANCO Date: 2021-04-04 17:07 Normal [facility] DIGITAL SCREEN BILA TERALOrdered By: Medardo Robles on 03-03-2021 BI-RADS 1 - Negative , no evidence of malignancy. Normal interval followup in 12 months. OVERALL ASSESSMENT- NEGATIVE A letter of notification will be sent to the patient regarding the results. [email or web address] Phone: HISTORY: Screening. Family history of breast carcinoma. TECHNIQUE: Bilateral digital screening mammogram with CAD. 2-D and 3-D tomography. FINDINGS: Two views of each breast show scattered areas of fibroglandular density. No change from prior studies the most recent of 01/14/2020. Suspicious calcifications: None. Suspicious mass: None. (If skin markers were applied, circles represent skin lesions and linear markers represent scars.) [email or web address] Phone: [email or web address] Phone: CBC Auto Differentialon - Basophils (Bld) [#/Vol] 0.00 10*3/uL [place] Basophils/100 WBC (Bld) 1 % 0 - 2 % [place] Differential Type YES [place] Eosinophils (Bld) [#/Vol] 0.10 10*3/uL [place] Eosinophils/100 WBC (Bld) 2 % 0 - 5 % [place] Erythrocyte distribution width (RBC) [Ratio] 13.5 % 12.1 - 15.2 % [place] Hematocrit (Bld) [Volume fraction] 39.8 % 36 - 46 % [place] Hemoglobin (Bld) [Mass/Vol] 13.7 g/dL 12 - 16 g/dL [place] Interpretation and review of laboratory results Abnormal [place] Lymphocytes (Bld) [#/Vol] 1.60 10*3/uL [place] Lymphocytes/100 WBC (Bld) 37 % 15 - 40 % [place] MCH (RBC) [Entitic mass] 31.9 pg 26 - 34 pg [place] MCHC (RBC) [Mass/Vol] 34.4 g/dL 31 - 37 g/dL [place] MCV (RBC) [Entitic vol] 92.7 fL 80 - 100 fL [place] Monocytes (Bld) [#/Vol] 0.50 10*3/uL [place] Monocytes/100 WBC (Bld) 11 % High 4 - 8 % [place] Platelet mean volume (Bld) [Entitic vol] NOT REPORTED 6 - 12 fL [place] Platelets (Bld) [#/Vol] 206 10*3/uL [place] Platelets (Bld) [#/Vol] NOT REPORTED [place] RBC (Bld) [#/Vol] 4.30 10*6/uL 4 - 5.2 m/uL [place] RBC morphology finding Nom (Bld) NOT REPORTED [place] Segmented neutrophils/100 WBC (Bld) 49 % 47 - 75 % [place] Segs Absolute 2.20 Low [place] WBC (Bld) [#/Vol] 4.4 10*3/uL [place] WBC (Bld) [#/Vol] NOT REPORTED per 100 WBC [place] WBC Morphology NOT REPORTED [place] Comprehensive Metabolic Pane johnathon 04-13-2020 Albumin [Mass/Vol] 4.2 g/dL 3.5 - 5.2 g/dL [place] Albumin/Globulin [Mass ratio] NOT REPORTED [place] ALP [Catalytic activity/Vol] 60 U/L 35 - 104 U/L [place] ALT [Catalytic activity/Vol] 44 U/L High 5 - 33 U/L [place] Anion gap [Moles/Vol] 10 mmol/L 9 - 17 mmol/L [place] AST [Catalytic activity/Vol] 30 U/L <32 [place] Bilirubin Ql (U) 0.73 mg/dL 0.3 - 1.2 mg/dL [place] Bun/Cre Ratio 25 High [place] Calcium [Mass/Vol] 10.9 mg/dL High 8.6 - 10. 4 mg/dL [place] Chloride [Moles/Vol] 108 mmol/L High 98 - 10 7 mmol/L [place] CO2 [Moles/Vol] 20 mmol/L 20 - 31 mmol/L [place] Creatinine [Mass/Vol] 0.84 mg/dL 0.5 - 0.9 mg/dL [place] GFR >60 >60 mL/min [place] GFR Non- >60 >60 mL/min [place] GFR/1.73 sq M predicted among non-blacks MDRD (S/P/Bld) [Vol rate/Area] [place] Comment on above: Average GFR for 70 o r more years old: 75 mL/min/1.73sq m Chronic Kidney Disease: <60 mL/min/1.73sq m Kidney failure: <15 mL/min/1.73sq m eGFR calculated using average adult body mass. Additional eGFR calculator available at: http://www.[employer]/multiple_crcl_2012.htm GFR/1.73 sq M predicted among non-blacks MDRD (S/P/Bld) [Vol rate/Area] NOT REPORTED [place] Glucose [Mass/Vol] 117 mg/dL High 70 - 99 mg/dL [place] Potassium [Moles/Vol] 3.7 mmol/L 3.7 - 5.3 mmol/L [place] Protein [Mass/Vol] 7.4 g/dL 6.4 - 8.3 g/dL [place] Sodium [Moles/Vol] 138 mmol/L 135 - 144 mmol/L [place] Urea nitrogen [Mass/Vol] 21 mg/dL 8 - 23 mg/dL [place] Hemoglobin A1Con 04-13-2020 Glucose [Mass/Vol] 117 mg/dL [place] Comment on above: The ADA and AACC rec ommend providing the estimated average glucose result to permit better patient understanding of their HBA1c result. HbA1c (Bld) [Mass fraction] 5.7 % 4 - 6 % [place] Lipid Panelon 04-13-2020 Cholesterol [Mass/Vol] 192 mg/dL <200 [place] Comment on above: Cholesterol Guidelines: <200 Desirable 200-240 Borderline >240 Undesirable Cholesterol in HDL [Mass/Vol] 48 mg/dL >40 [place] Comment on above: HDL Guidelines: <40 Undesirable 40-59 Borderline >59 Desirable Cholesterol in LDL [Mass/Vol] 125 mg/dL 0 - 130 mg/dL [place] Comment on above: LDL Guidelines: <100 Desirable 100-129 Near to/above Desirable 130-159 Borderline >159 Undesirable Direct (measured) LDL and calculated LDL are not interchangeable tests. Cholesterol in VLDL [Mass/Vol] NOT REPORTED 1 - 30 mg/dL [place] Cholesterol.total/Ch olesterol in HDL [Mass ratio] 4 {ratio} <5 [place] Triglyceride [Mass/Vol] 97 mg/dL <150 [place] Comment on above: Triglyceride Guidelines: <150 Desirable 150-199 Borderline 200-499 High >499 Very high Based on AHA Guidelines for fasting triglyceride, February 2012. Magnesiumon 04-13-2020 Magnesium [Mass/Vol] 2.2 mg/dL 1.6 - 2 .6 mg/dL [place] Otheron 04-13-2020 Interpretation and review of laboratory results Abnormal [place] Immature granulocytes (Bld) [#/Vol] NOT REPORTED 0 % [place] Patient Fasting?on 0 Patient Fasting? yes [place] T4, Freeon 04-13-2020 Thyroxine, Free 1.05 ng/dL 0.93 - 1.7 ng/dL [place] TSH with Reflexon 04-13-2020 TSH Qn 5.86 m[IU]/L High [place], [place] Vitamin D 25 Hydroxyon 04-13 Vit D, 25-Hydroxy 58 ng/mL 30 - 100 ng/mL [place] Comment on above: Reference Range: Vitamin D status Range Deficiency <20 ng/mL Mild Deficiency 20-30 ng/mL Sufficiency 30-100 ng/mL Toxicity >100 ng/mL XR CHEST (2 VW)on 04-13-2020 No acute heart or gurjit ng disease identified. [place] Frontal and lateral chest Clinical: Atrial fibrillation. COMPARISON: 04/21/2019. Heart and vascularity are unremarkable. Lungs are expanded and free of focal infiltrates. Mild spondylosis of the spine is noted. There is a slight to mild scoliotic deformity of the thoracolumbar spine with convexity to the right. [place] [employer], [employer] Incoming Radiant Results From [employer]acs - 04/13/2020 12:15 PM EST Frontal and lateral chest Clinical: Atrial fibrillation. COMPARISON: 04/21/2019. Heart and vascularity are unremarkable. Lungs are expanded and free of focal infiltrates. Mild spondylosis of the spine is noted. There is a slight to mild scoliotic deformity of the thoracolumbar spine with convexity to the right. IMPRESSION: No acute heart or lung disease identified. [place] Uric AcidOrdered By: Medardo haile on 06-16-2019 Interpretation and review of laboratory results Abnormal [email or web address] Phone: Urate [Mass/Vol] 9.9 mg/dL High 2.4 - 5.7 mg/dL [email or web address] Phone: CBC Auto Differentialon 12-0 Basophils (Bld) [#/Vol] 0.00 10*3/uL [place] Basophils/100 WBC (Bld) 0 % 0 - 2 % [place] Differential Type YES [place] Eosinophils (Bld) [#/Vol] 0.10 10*3/uL [place] Eosinophils/100 WBC (Bld) 1 % 0 - 5 % [place] Erythrocyte distribution width (RBC) [Ratio] 14.0 % 12.1 - 15.2 % [place] Hematocrit (Bld) [Volume fraction] 39.4 % 36 - 46 % [place] Hemoglobin (Bld) [Mass/Vol] 13.4 g/dL 12 - 16 g/dL [place] Lymphocytes (Bld) [#/Vol] 1.60 10*3/uL [place] Lymphocytes/100 WBC (Bld) 30 % 15 - 40 % [place] MCH (RBC) [Entitic mass] 31.8 pg 26 - 34 pg [place] MCHC (RBC) [Mass/Vol] 33.9 g/dL 31 - 37 g/dL [place] MCV (RBC) [Entitic vol] 93.7 fL 80 - 100 fL [place] Monocytes (Bld) [#/Vol] 0.40 10*3/uL [place] Monocytes/100 WBC (Bld) 8 % 4 - 8 % [place] Platelet mean volume (Bld) [Entitic vol] NOT REPORTED 6 - 12 fL [place] Platelets (Bld) [#/Vol] NOT REPORTED [place] Platelets (Bld) [#/Vol] 228 10*3/uL [place] RBC (Bld) [#/Vol] 4.21 10*6/uL 4 - 5.2 m/uL [place] RBC morphology finding Nom (Bld) NOT REPORTED [place] Segmented neutrophils/100 WBC (Bld) 61 % 47 - 75 % [place] Segs Absolute 3.30 [place] WBC (Bld) [#/Vol] 5.4 10*3/uL [place] WBC (Bld) [#/Vol] NOT REPORTED per 100 WBC [place] WBC Morphology NOT REPORTED [place] Comprehensive Metabolic Pane johnathon 04-21-2019 Albumin [Mass/Vol] 4.4 g/dL 3.5 - 5.2 g/dL [place] Albumin/Globulin [Mass ratio] NOT REPORTED [place] ALP [Catalytic activity/Vol] 63 U/L 35 - 104 U/L [place] ALT [Catalytic activity/Vol] 54 U/L High 5 - 33 U/L [place] Anion gap [Moles/Vol] 14 mmol/L 9 - 17 mmol/L [place] AST [Catalytic activity/Vol] 31 U/L <32 [place] Bilirubin Ql (U) 0.77 mg/dL 0.3 - 1.2 mg/dL [place] Bun/Cre Ratio 19 [place] Calcium [Mass/Vol] 10.8 mg/dL High 8.6 - 10. 4 mg/dL [place] Chloride [Moles/Vol] 104 mmol/L 98 - 10 7 mmol/L [place] CO2 [Moles/Vol] 22 mmol/L 20 - 31 mmol/L [place] Creatinine [Mass/Vol] 0.72 mg/dL 0.5 - 0.9 mg/dL [place] GFR >60 >60 mL/min [place] GFR Non- >60 >60 mL/min [place] GFR/1.73 sq M predicted among non-blacks MDRD (S/P/Bld) [Vol rate/Area] NOT REPORTED [place] GFR/1.73 sq M predicted among non-blacks MDRD (S/P/Bld) [Vol rate/Area] [place] Comment on above: Average GFR for 70 o r more years old: 75 mL/min/1.73sq m Chronic Kidney Disease: <60 mL/min/1.73sq m Kidney failure: <15 mL/min/1.73sq m eGFR calculated using average adult body mass. Additional eGFR calculator available at: http://www.[employer]/multiple_crcl_2012.htm Glucose [Mass/Vol] 122 mg/dL High 70 - 99 mg/dL [place] Interpretation and review of laboratory results Abnormal [place] Potassium [Moles/Vol] 3.6 mmol/L Low 3.7 - 5.3 mmol/L [place] Protein [Mass/Vol] 7.7 g/dL 6.4 - 8.3 g/dL [place] [place] Sodium [Moles/Vol] 140 mmol/L 135 - 144 mmol/L [place] Urea nitrogen [Mass/Vol] 14 mg/dL 8 - 23 mg/dL [place] Lipid Panelon 04-21-2019 Cholesterol [Mass/Vol] 184 mg/dL <200 [place] Comment on above: Cholesterol Guidelines: <200 Desirable 200-240 Borderline >240 Undesirable Cholesterol in HDL [Mass/Vol] 52 mg/dL >40 [place] Comment on above: HDL Guidelines: <40 Undesirable 40-59 Borderline >59 Desirable Cholesterol in LDL [Mass/Vol] 111 mg/dL 0 - 130 mg/dL [place] Comment on above: LDL Guidelines: <100 Desirable 100-129 Near to/above Desirable 130-159 Borderline >159 Undesirable Direct (measured) LDL and calculated LDL are not interchangeable tests. Cholesterol in VLDL [Mass/Vol] NOT REPORTED 1 - 30 mg/dL [place] Cholesterol.total/Ch olesterol in HDL [Mass ratio] 3.5 {ratio} <5 [place] Triglyceride [Mass/Vol] 107 mg/dL <150 [place] Comment on above: Triglyceride Guidelines: <150 Desirable 150-199 Borderline 200-499 High >499 Very high Based on AHA Guidelines for fasting triglyceride, February 2012. Magnesiumon 04-21-2019 Magnesium [Mass/Vol] 2.2 mg/dL 1.6 - 2 .6 mg/dL [facility] [place] Otheron 04-21-2019 Immature granulocytes (Bld) [#/Vol] NOT REPORTED [place], [place] Patient Fasting?on 9 Patient Fasting? yes [facility] [place] TSH with Reflexon 04-21-2019 TSH Qn 3.29 m[IU]/L [place], [place] Vitamin D 25 Hydroxyon 04-21 Vit D, 25-Hydroxy 51.6 ng/mL 30 - 100 ng/mL [place], [place] Comment on above: Reference Range: Vitamin D status Range Deficiency <20 ng/mL Mild Deficiency 20-30 ng/mL Sufficiency 30-100 ng/mL Toxicity >100 ng/mL XR CHEST STANDARD (2 VW)on 06-22-2018 Negative chest. Sierra Brower [place], [place] EXAM: XR CHEST (2 VW ) HISTORY: Reason for exam:->Afib COMPARISON: Chest 03/29/2018. TECHNIQUE: 2 views chest FINDINGS: Heart size normal. Lungs clear. Bony thorax and upper abdomen normal. [place], [place] Alex[facility], [facility] Incoming Radiant Results From [employer] - 04/21/2019 1:22 PM EST EXAM: XR CHEST (2 VW) HISTORY: Reason for exam:->Afib COMPARISON: Chest 03/29/2018. TECHNIQUE: 2 views chest FINDINGS: Heart size normal. Lungs clear. Bony thorax and upper abdomen normal. IMPRESSION: Negative chest. [place], [place] Progress Noteon 04-05-2018 HIM IP Note OR Senior Planner Normal [facility] Progress Noteon 03-19-2018 HIM IP Note OR Senior Planner Normal [facility] Progress Noteon 02-15-2018 HIM IP Note OR Senior Planner Normal [facility] Progress Noteon 09-17-2017 HIM IP Note OR Senior Planner Normal [facility] Vital Signs Date Time Vital Sign Value Performing Clinician Facility 07-29-2024 10:13-0400 Body height 162.6 cm Ximena Archuleta CNP Work Phone: [facility] 07-29-2024 10:13-0400 Body mass index (BMI) [Ratio] 31.41 kg/m2 Ximena Archuleta CNP Work Phone: [facility] 07-29-2024 10:13-0400 Body weight 83.01 kg Ximena Archuleta SHAKE TABLE OPERATOR Work Phone: [facility] 07-29-2024 10:13-0400 Diastolic blood pressure 86 mm[Hg] Ximena Archuleta SHAKE TABLE OPERATOR Work Phone: [facility] 07-29-2024 10:13-0400 Heart rate 57 /min Ximena Archuleta CNP Work Phone: [facility] 07-29-2024 10:13-0400 SaO2% (BldA) [Mass fraction] 96 % Ximena Archuleta SHAKE TABLE OPERATOR Work Phone: [facility] 07-29-2024 10:13-0400 Systolic blood pressure 145 mm[Hg] Ximena Arhculeta CNP Work Phone: [facility] 06-23-2024 09:50-0500 Diastolic blood pressure 73 mm[Hg] ANAI GAITAN [facility] 06-23-2024 09:50-0500 Heart rate 58 /min ANAI DOREEN [facility] 06-23-2024 09:50-0500 Respiratory rate 16 /min ANAI DOREEN [facility] 06-23-2024 09:50-0500 Systolic blood pressure 125 mm[Hg] ANAI DOREEN [facility] 11-16-2023 10:12-0400 Blood Pressure Location Rachel FLORES [facility] 11-16-2023 10:12-0400 Diastolic blood pressure 83 mm[Hg] Rachel FLORES [facility] 11-16-2023 10:12-0400 Heart rate 80 /min Rachel FLORES [facility] 11-16-2023 10:12-0400 Respiratory rate 16 /min Rachel FLORES [facility] 11-16-2023 10:12-0400 Systolic blood pressure 138 mm[Hg] Rachel FLORES [facility] 09-07-2023 08:33-0400 Body height 162.6 cm Ximena Scott SHAKE TABLE OPERATOR Work Phone: [facility] 09-07-2023 08:33-0400 Body mass index (BMI) [Ratio] 31.76 kg/m2 Ximena Scott SHAKE TABLE OPERATOR Work Phone: [facility] 09-07-2023 08:33-0400 Body weight 83.92 kg Ximena Archuleta SHAKE TABLE OPERATOR Work Phone: [facility] 09-07-2023 08:33-0400 Diastolic blood pressure 73 mm[Hg] Ximenalillie Archuleta SHAKE TABLE OPERATOR Work Phone: [facility] 09-07-2023 08:33-0400 Heart rate 55 /min Ximena Archuleta SHAKE TABLE OPERATOR Work Phone: [facility] 09-07-2023 08:33-0400 SaO2% (BldA) [Mass fraction] 98 % Ximenalillie Archuleta SHAKE TABLE OPERATOR Work Phone: [facility] 09-07-2023 08:33-0400 Systolic blood pressure 124 mm[Hg] Ximenalillie Archuleta SHAKE TABLE OPERATOR Work Phone: [facility] 03-20-2023 09:18-0400 Diastolic blood pressure 81 mm[Hg] Ximena Archuleta SHAKE TABLE OPERATOR Work Phone: [facility] 03-20-2023 09:18-0400 Systolic blood pressure 150 mm[Hg] Ximena Archuleta CNP Work Phone: [facility] 03-20-2023 09:130400 Body height 162.6 cm Ximena Archuleta CNP Work Phone: [facility] 03-20-2023 09:130400 Body mass index (BMI) [Ratio] 31.93 kg/m2 Ximena Archuleta SHAKE TABLE OPERATOR Work Phone: [facility] 03-20-2023 09:130400 Body weight 84.37 kg Ximena Archuleta SHAKE TABLE OPERATOR Work Phone: [facility] 03-20-2023 09:13-0400 Heart rate 56 /min Ximena Archuleta CNP Work Phone: [facility] 03-20-2023 09:13-0400 SaO2% (BldA) [Mass fraction] 96 % Ximena Archuleta CNP Work Phone: [facility] 11-17-2022 10:01-0400 Blood Pressure Location Rachel FLORES [facility] 11-17-2022 10:01-0400 Diastolic blood pressure 87 mm[Hg] Rachel FLORES [facility] 11-17-2022 10:01-0400 Heart rate 58 /min Rachelcathy FLORES [facility] 11-17-2022 10:01-0400 Systolic blood pressure 137 mm[Hg] Rachelcathy FLORES [facility] 11-06-2022 10:21-0400 Body mass index (BMI) [Ratio] 31.76 kg/m2 Ximena Archuleta CNP Work Phone: [facility] 11-06-2022 10:21-0400 Body weight 83.92 kg Ximena Archuleta CNP Work Phone: [facility] 11-06-2022 10:21-0400 Diastolic blood pressure 80 mm[Hg] Ximena Archuleta SHAKE TABLE OPERATOR Work Phone: [facility] 11-06-2022 10:21-0400 Heart rate 64 /min Ximena Archuleta SHAKE TABLE OPERATOR Work Phone: [facility] 11-06-2022 10:21-0400 SaO2% (BldA) [Mass fraction] 95 % Ximena Archuleta SHAKE TABLE OPERATOR Work Phone: [facility] 11-06-2022 10:21-0400 Systolic blood pressure 125 mm[Hg] Ximena Archuleta SHAKE TABLE OPERATOR Work Phone: [facility] 09-15-2022 08:29-0400 Heart rate 60 /min Pollo Angulo MD Work Phone: [facility] 09-15-2022 07:06-0400 Body temperature 98.01 [degF] Pollo Angulo MD Work Phone: [facility] 09-15-2022 07:06-0400 Diastolic blood pressure 76 mm[Hg] Pollo Angulo MD Work Phone: [facility] 09-15-2022 07:06-0400 Respiratory rate 12 /min Pollo Angulo MD Work Phone: [facility] 09-15-2022 07:06-0400 SaO2% (BldA) [Mass fraction] 96 % Pollo Angulo MD Work Phone: [facility] 09-15-2022 07:06-0400 Systolic blood pressure 149 mm[Hg] Pollo Angulo MD Work Phone: [facility] 09-14-2022 09:11-0400 Body height 162.6 cm Pollo Angulo MD Work Phone: [facility] 09-14-2022 09:11-0400 Body mass index (BMI) [Ratio] 31.41 kg/m2 Pollo Angulo MD Work Phone: [facility] 09-14-2022 09:11-0400 Body weight 83.01 kg Atish Adele MD Work Phone: [facility] 08-22-2022 08:06-0400 Diastolic blood pressure 86 mm[Hg] Pollo Angulo MD Work Phone: [facility] 08-22-2022 08:06-0400 Systolic blood pressure 147 mm[Hg] Pollo Angulo MD Work Phone: [facility] 08-22-2022 08:05-0400 Body weight 85 kg Pollo Angulo MD Work Phone: [facility] 08-22-2022 08:05-0400 Heart rate 61 /min Pollo Angulo MD Work Phone: [facility] 08-22-2022 08:05-0400 SaO2% (BldA) [Mass fraction] 95 % Pollo Angulo MD Work Phone: [facility] Encounters Encounter Date Encounter Type Care Provider Facility Start: 01-29-2025 [facility]ulatory [id number] Start: 01-12-2025 End: 01-12-2025 ambulatory Rachel FLORES Facility:[facility] Start: 01-12-2025 End: 01-12-2025 Patient encounter procedure Rachel FLORES [facility] Start: 07-29-2024 End: 07-29-2024 Office outpatient visit 15 minutes Ximena Archuleta CNP Work Phone: [facility] Comment on above: Presence of Watchman left atrial appendage closure device (Primary Dx); PAF (paroxysmal atrial fibrillation) (HCC) Start: 07-29-2024 End: 07-29-2024 ambulatory MEDARDO ROBLES [facility] Start: 06-23-2024 End: 06-23-2024 ambulatory ANAI GAITAN Facility:[facility] Start: 06-23-2024 End: 06-23-2024 Lab Drop off ANAI GAITAN [facility] Start: 06-23-2024 End: 06-23-2024 ambulatory ANAI GAITAN Facility:[facility] Start: 06-23-2024 End: 06-23-2024 Patient encounter procedure ANAI GAITAN [facility] Start: 06-17-2024 End: 06-19-2024 ambulatory RACHEL FLORES [facility] Start: 06-17-2024 End: 06-19-2024 Subsequent hospital visit by physician [facility] Additional Xray At [facility] Radiology Comment on above: Uric acid nephrolith iasis Start: 04-01-2024 End: 04-03-2024 ambulatory KYLE AUSTIN [facility] Start: 04-01-2024 End: 04-03-2024 Subsequent hospital visit by physician [facility] Additional Xray At [facility] Laboratory Comment on above: Paroxysmal atrial fi brillation (HCC); Mitral valve insufficiency, unspecified etiology; Mixed hyperlipidemia; Primary hypertension; Vitamin D deficiency disease Start: 03-13-2024 End: 03-15-2024 ambulatory MEDARDO ROBLES [facility] Start: 02-29-2024 End: 02-29-2024 ambulatory GARIMA MCKEONBERNABE [facility] Start: 12-27-2023 ambulatory Rachel Felderi ty:[id number] Start: 12-24-2023 End: 12-24-2023 Lab Drop off Lashaun Mcintyre [facility] Start: 12-24-2023 End: 12-24-2023 ambulatory Lashaun Mcintyre Facility:[facility] Start: 12-24-2023 End: 12-24-2023 Patient encounter procedure Rachel FLORES [facility] Start: 11-16-2023 End: 11-16-2023 ambulatory Rachel FLORES Facility:[facility] Start: 11-16-2023 End: 11-16-2023 Patient encounter procedure Rachel FLORES [facility] Start: 11-06-2023 End: 11-06-2023 ambulatory JESSICA [facility]quivel [facility] Start: 10-05-2023 End: 10-05-2023 ambulatory [facility] Start: 09-07-2023 End: 09-11-2023 ambulatory [facility] Start: 09-07-2023 End: 09-07-2023 Office outpatient visit 15 minutes Ximena Archuleta CNP Work Phone: [facility] Comment on above: Atrial fibrillation, unspecified type (HCC) (Primary Dx) Start: 09-07-2023 End: 09-07-2023 ambulatory [facility] Start: 03-20-2023 End: 03-20-2023 Office outpatient visit 15 minutes Ximena Archuleta CNP Work Phone: [facility] Comment on above: Atrial fibrillation, unspecified type (HCC) (Primary Dx); Presence of Watchman left atrial appendage closure device Start: 03-15-2023 End: 03-16-2023 ambulatory [facility] Start: 03-02-2023 Documentation procedure Jack Escobar RN [facility] Start: 02-28-2023 Orders Only Jack Escobar RN [facility] Comment on above: Atrial fibrillation, chronic (HCC) (Primary Dx) Start: 11-17-2022 End: 11-17-2022 Patient encounter procedure Rachel FLORES [facility] Start: 11-13-2022 Refill Jack Escobar RN [facility] Comment on above: Medication Refill Start: 11-06-2022 End: 11-10-2022 ambulatory [facility] Start: 11-06-2022 End: 11-06-2022 Office outpatient visit 15 minutes Ximena Archuleta CNP Work Phone: [facility] Comment on above: Atrial fibrillation, chronic (HCC) (Primary Dx); Presence of Watchman left atrial appendage closure device Start: 11-03-2022 End: 11-03-2022 Subsequent hospital visit by physician Medardo Robles MD Work Phone: [facility] Laboratory Comment on above: Dysuria Start: 09-14-2022 Orders Only Jack Escobar RN [facility] Comment on above: Atrial fibrillation, chronic (HCC) (Primary Dx) Start: 09-14-2022 End: 09-15-2022 Evaluation and management of inpatient [facility] Start: 09-14-2022 End: 09-15-2022 Evaluation and management of inpatient [facility] Adele SAMSON Work Phone: [facility] Cardiovascular Step Down Start: 09-11-2022 End: 09-15-2022 ambulatory [facility] Start: 09-11-2022 End: 09-15-2022 Encounter for other preprocedural examination [facility] Start: 09-08-2022 Documentation procedure Jack Escobar RN [facility] Start: 08-30-2022 End: 09-03-2022 Orders Only Jack Escobar RN [facility] Comment on above: Pre-op testing (Prim fariha Dx); Atrial fibrillation, chronic (HCC) Start: 08-30-2022 Patient encounter status Jack Escobar RN [facility] Start: 08-28-2022 Orders Only Jack Escobar RN [facility] Comment on above: Atrial fibrillation, unspecified type (HCC) (Primary Dx); Atrial fibrillation, chronic (HCC) Atrial fibrillation, unspecified type (HCC) (Primary Dx) Medication Refill Start: 08-25-2022 Documentation procedure Jack Escobar RN [facility] Start: 08-22-2022 End: 08-22-2022 Office outpatient new 60 minutes Pollo Angulo MD Work Phone: [facility] Comment on above: Atrial fibrillation, unspecified type (HCC) (Primary Dx); Essential hypertension Start: 08-17-2022 Chart abstracting Ruby krueger [facility] Start: 08-16-2022 Documentation procedure Mahsa Temple [facility] Start: 03-06-2022 End: 03-08-2022 Subsequent hospital visit by physician [facility] Mammography Room [facility] Mammography Comment on above: Visit for screening mammogram Start: 10-10-2021 End: 10-10-2021 Subsequent hospital visit by physician Medardo Robles MD Work Phone: [facility] Start: 08-24-2021 End: 08-24-2021 Subsequent hospital visit by physician Medardo Robles MD Work Phone: [facility] Comment on above: Dysuria; Acute cystitis with hematuria Start: 07-13-2021 End: 07-13-2021 Subsequent hospital visit by physician Medardo Robles MD Work Phone: [facility] Start: 07-11-2021 End: 07-11-[address] RACHEL FLORES Facility:[facility] Start: 04-04-2021 End: 04-05-[address] DOCTOR FITZPATRICK Facility:[facility] Start: 03-03-2021 End: 03-05-2021 Subsequent hospital visit by physician [facility] Mammography Room [facility] Mammography Comment on above: Visit for screening mammogram Start: 02-28-2021 End: 02-28-2021 Subsequent hospital visit by physician Medardo Robles MD Work Phone: [facility] Comment on above: Dysuria Start: 04-13-2020 End: 04-15-2020 Subsequent hospital visit by physician [facility] Additional Xray At [facility] Comment on above: Elevated glucose; Essential hypertension; Hyperlipidemia, unspecified hyperlipidemia type; Vitamin D deficiency disease; Atrial fibrillation, unspecified type (HCC) Start: 03-08-2020 End: 03-08-2020 Subsequent hospital visit by physician Medardo Robles [facility] Comment on above: Complicated UTI (uri nary tract infection) Start: 06-16-2019 End: 06-16-2019 Subsequent hospital visit by physician Medardo Robles MD Work Phone: [facility] Comment on above: Pain and swelling [...] w/le ast 12 lds w/i&r Ximena Archuleta SHAKE TABLE OPERATOR Work Phone: Start: 06-17-2024 Radiologic exam abdo [...] Work Phone: Start: 03-13-2024 Mammography Ximena chi SHAKE TABLE OPERATOR Work Phone: Start: 09-07-2023 Ecg routine ecg w/le ast 12 lds w/i&r Ximena Archuleta SHAKE TABLE OPERATOR Work Phone: Start: 03-20-2023 Ecg routine ecg w/le ast 12 lds w/i&r iXmena Archuleta SHAKE TABLE OPERATOR Work Phone: Start: 03-09-2023 Mammography Ximena chi SHAKE TABLE OPERATOR Work Phone: Start: 11-06-2022 Ecg routine ecg [...] vaccine (2 - Td or Tdap) [employer] Start: 06-30-2032 Tetanus vaccination Tetanus: Every 10yrs [facility] Start: 04-01-2029 Lipid panel Lipids [facility] [employer] Start: 04-09-2028 Lipid panel Lipids [facility] [employer] Start: 04-11-2027 Lipid panel Lipids [employer] Start: 04-15-2026 Lipid panel [employer] Start: 06-14-2025 Colon cancer screen colonoscopy Colon cancer screen colonoscopy [employer] [place] Start: 06-14-2025 Screening for malignant neoplasm of colon [employer] Start: 05-02-2025 Annual Wellness Visit (Medicare) Annual Wellness Visit (Medicare) [facility] [employer] Start: 05-01-2025 Depression Screen Depression Screen [employer] Start: 05-01-2025 Medicare Wellness Visit Medicare Wellness Visit [facility] Start: 04-13-2025 Lipid panel Lipid screen [employer] Work Phone: Start: 04-06-2025 End: 04-06-2025 Patient encounter procedure 04/06/2025 10:30 AM EST Office Visit [facility] [address] [facility] [place] [address] Shar Frias DO [address] [facility] [place] [address] 1 yr f/u [facility] Comment on above: 1 yr f/u Start: 03-13-2025 Screening for malignant neoplasm of breast Mammogram [facility] Start: 10-30-2024 End: 10-30-2024 Patient encounter procedure 10/30/2024 8:20 AM EDT Office Visit [facility] [address] [place] [id number] Medardo Robles MD [address] [place] [id number] 6 mos - HTN, Hyperlipidemia, gerd, afib, osteoporosis. [facility] Comment on above: 6 mos - HTN, Hyperlipidemia, gerd, afib, osteoporosis. Start: 06-26-2024 Depression Screen Depression Screen [facility] Start: 05-01-2024 End: 05-01-2024 Patient encounter procedure 05/01/2024 8:20 AM EST Office Visit [facility] [address] [place] [address] Medardo Robles MD [address] [place] [address] AWV - 6 mos - HTN, gerd, afib, osteoporosis [facility] Comment on above: AWV - 6 mos - HTN, gerd, afib, osteoporo sis Start: 04-30-2024 Annual Wellness Visit (Medicare) Annual Wellness Visit (Medicare) [facility] Start: 04-30-2024 History and physical examination, annual for health maintenance Wellness Visit [facility] Start: 04-21-2024 Lipid panel Lipid screen [facility] [place] Start: 04-21-2024 Lipid screen Lipid screen [place] DAKOTA [facility] Start: 04-07-2024 End: 04-07-2024 Patient encounter procedure 04/07/2024 10:30 AM EST Office Visit [facility] [address] [place] [id number] Kyle Austin MD [address] [place] [address] 1 year follow up labs ekg cxr [facility] Comment on above: 1 year follow up labs ekg cxr Start: 03-09-2024 Screening for malignant neoplasm of breast Mammogram [facility] Start: 03-06-2024 Screening for malignant neoplasm of breast Breast cancer screen [facility] Start: 01-20-2024 COVID-19 Vaccine ( season) COVID-19 Vaccine ( season) [facility] Start: 01-20-2024 COVID-19 Vaccine ( season) COVID-19 Vaccine ( season) [facility] Start: 01-20-2024 Influenza vaccination Influenza Vaccine (#1) [facility] Start: 12-20-2023 Influenza vaccination Flu vaccine (#1) [facility] Start: 12-12-2023 Respiratory Syncytial Virus Immunization: Risk, 60-74 Risk, or 75+ (1 - 1-dose 75+ series) Respiratory Syncytial Virus Immunization: Risk, 60-74 Risk, or 75+ (1 - 1-dose 75+ series) [facility] Start: 10-26-2023 Depression Screen Depression Screen [facility] Start: 09-07-2023 End: 09-07-2023 Patient encounter procedure 09/07/2023 9:00 AM EDT Office Visit [facility] [address] [facility] [place] [address] Ximena Archuleta, SHAKE TABLE OPERATOR [address] [place] [address] [facility] Start: 04-30-2023 End: 04-30-2023 Patient encounter procedure 04/30/2023 Office Visit Family Medicine Medardo Robles MD [address] [place] [address] [facility] Start: 04-27-2023 Annual Wellness Visit (AWV) Annual Wellness Visit (AWV) [facility] Start: 04-26-2023 History and physical examination, annual for health maintenance Wellness Visit [facility] Start: 04-19-2023 End: 04-19-2023 Patient encounter procedure 04/19/2023 Office Visit Cardiology Kyle Austin MD [address] [place] [address] [facility] Start: 03-29-2023 Lipid screen Lipid screen [place], [place] Start: 03-20-2023 End: 03-20-2023 Patient encounter procedure 03/20/2023 9:30 AM EDT Office Visit [facility] [address] [facility] [place] [address] Ximena Archuleta CNP [address] [place], [place] [id number] [facility] Start: 03-16-2023 End: 09-15-2023 CT Pulmonary Vein With Reconstructions 3D CT Pulmonary Vein With Reconstructions 3D Imaging Routine Atrial fibrillation, chronic (HCC) Expected: 03/16/2023, Expires: 09/15/2023 [facility] Work Phone: Comment on above: Expected: 03/16/2023, Expires: Start: 03-15-2023 End: 03-15-2023 Patient encounter procedure 03/15/2023 9:00 AM EDT Appointment [facility] CT Scan [address] [place] [id number] Pollo Angulo MD [address] [place] [address] [facility] [address] Scan Start: 03-06-2023 Screening for malignant neoplasm of breast Mammogram [facility] Start: 03-03-2023 Screening for malignant neoplasm of breast Breast cancer screen [facility] Start: 01-19-2023 COVID-19 Vaccine ( season) COVID-19 Vaccine () [facility] Start: 01-19-2023 Influenza vaccination Sequential Influenza Vaccine (#1) [facility] Start: 11-06-2022 End: 11-06-2022 Patient encounter procedure 11/06/2022 10:30 AM EDT Office Visit [facility] [address] [facility] [place] [address] Ximena Archuleta, JIMENA [address] [place] [address] [facility] Start: 09-14-2022 End: 09-14-2022 Admission to same day surgery center [facility] Cardiovascular Lab Comment on above: Left Atrial Appendage Closure Start: 09-14-2022 Subsequent hospital visit by physician [facility] Procedural Care Unit Start: 09-05-2022 End: 08-31-2023 Blood type and Indirect antibody screen panel - Blood Type and Screen Blood Bank Routine Pre-op testing Expected: 09/05/2022, Expires: 08/31/2023 [facility] Comment on above: Expected: 09/05/2022, Expires: 4 Start: 09-05-2022 End: 08-31-2023 Complete blood count with white cell differential, manual CBC and differential Lab Routine Pre-op testing Expected: 09/05/2022, Expires: 08/31/2023 [facility] Work Phone: Comment on above: Expected: 09/05/2022, Expires: 4 Start: 09-05-2022 End: 08-31-2023 Comprehensive metabolic 2000 panel - Serum or Plasma Comprehensive metabolic panel Lab Routine Pre-op testing Expected: 09/05/2022, Expires: 08/31/2023 [facility] Comment on above: Expected: 09/05/2022, Expires: 4 Start: 09-05-2022 End: 08-31-2023 INR in Platelet poor plasma by Coagulation assay Protime-INR Lab Routine Pre-op testing Atrial fibrillation, chronic (HCC) Expected: 09/05/2022, Expires: 08/31/2023 [facility] Comment on above: Expected: 09/05/2022, Expires: 4 Start: 09-05-2022 End: 09-05-2022 Patient encounter procedure [facility] CT Scan Start: 08-24-2022 Depression Screen Depression Screen [facility] Start: 08-22-2022 End: 08-22-2022 Patient encounter procedure 08/22/2022 8:00 AM EDT Office Visit [facility] [address] [place] [address] [place] [address] Pollo Angulo MD [address] [place] [address] [facility] Start: 07-13-2022 Creatinine measurement Creatinine monitoring [facility] Start: 07-13-2022 Potassium monitoring Potassium monitoring [facility] Start: 04-26-2022 Annual Wellness Visit (AWV) Annual Wellness Visit (AWV) [facility] Start: 04-26-2022 End: 04-26-2022 Patient encounter procedure 04/26/2022 Office Visit Family Medicine Medardo Robles MD [address] [place] [address] [facility] Start: 04-25-2022 Depression Screen Depression Screen [facility] Start: 04-25-2022 Hemoglobin A1c measurement A1C test (Diabetic or Prediabetic) [facility] Start: 04-20-2022 End: 04-20-2022 Patient encounter procedure 04/20/2022 Office Visit Cardiology Kyle Austin MD [address] [place] [address] [facility] Start: 01-19-2022 Influenza vaccination [facility] Start: 01-13-2022 Screening for malignant neoplasm of breast Breast cancer screen [facility] Start: 10-24-2021 End: 10-24-2021 Patient encounter procedure 10/24/2021 Office Visit Family Medicine Medardo Robles MD [address] [place], [place] [id number] [facility] Start: 04-25-2021 End: 04-25-2021 Patient encounter procedure 04/25/2021 Office Visit Family Medicine Medardo Robles MD [address] [place] [address] [facility] Start: 04-21-2021 End: 04-21-2021 Patient encounter procedure 04/21/2021 Office Visit Cardiology Kyle Austin MD [address] [place] [address] [facility] Start: 04-13-2021 Creatinine measurement Creatinine monitoring [facility] Phone: Start: 04-13-2021 Hemoglobin A1c measurement A1C test (Diabetic or Prediabetic) [facility] Phone: Start: 04-13-2021 Potassium monitoring Potassium monitoring [facility] Phone: Start: 04-04-2021 Shingles Vaccine (2 of 2) Shingles Vaccine (2 of 2) [facility] Phone: Start: 03-03-2021 End: 03-03-2021 Patient encounter procedure 03/03/2021 Appointment Radiology [facility] Start: 02-18-2021 Annual Wellness Visit (AWV) Annual Wellness Visit (AWV) [place], [place] Start: 02-17-2021 Pneumococcal 65+ years Vaccine (2 - PCV) Pneumococcal 65+ years Vaccine (2 - PCV) [facility] Start: 01-19-2021 Influenza vaccination Flu vaccine (#1) [facility] Start: 10-04-2020 Breast cancer screen Breast cancer screen [place], [place] Start: 04-22-2020 End: 04-22-2020 Office Visit 04/22/2020 Office Visit Cardiology Kyle Austin MD [address] [place] [address] [phone] [facility] Start: 04-21-2020 Creatinine measurement Creatinine monitoring [place], [place] Start: 04-21-2020 Creatinine monitoring Creatinine monitoring [place], [place] Start: 04-21-2020 Potassium monitoring Potassium monitoring [place], [place] Start: 04-21-2020 End: 04-21-2020 Office Visit 04/21/2020 Office Visit Family Medicine Medardo Robles MD [address] [place] [address] [phone] [facility] Start: 03-18-2020 Pneumococcal 65+ years Vaccine (1 of 1 - PPSV23) Pneumococcal 65+ years Vaccine (1 of 1 - PPSV23) [place] Comment on above: Postponed from 2013 (Patient Refus ed) Start: 01-20-2020 Influenza vaccination Flu vaccine (#1) [place] Start: 01-10-2020 Annual Wellness Visit (AWV) Annual Wellness Visit (AWV) [place] Start: 09-17-2019 End: 09-17-2019 Office Visit 09/17/2019 Office Visit Family Medicine Medardo Robles MD [address] [place] [address] [phone] [facility] Start: 04-28-2019 End: 04-28-2019 Office Visit 04/28/2019 Office Visit Cardiology Kyle Austin MD [address] [place] [address] [phone] [facility] Start: 03-29-2019 Creatinine monitoring Creatinine monitoring [place], [place] Start: 03-29-2019 Potassium monitoring Potassium monitoring [place] Start: 01-19-2019 Influenza vaccination Flu vaccine (#1) [place] Start: 2013 Fall risk assessment Falls Risk Assessment [facility] Start: 2013 Pneumococcal Vaccine: Age 65+ (1 - PCV) Pneumococcal Vaccine: Age 65+ (1 - PCV) [facility] Start: 1998 Administration of herpes zoster vaccine Zoster Vaccines (1 of 2) [facility] Start: 1998 Screening for malignant neoplasm of colon Flexible sigmoidoscopy [facility] Start: 1998 Shingles Vaccine (1 of 2) Shingles Vaccine (1 of 2) [place] Start: 1993 Screening for malignant neoplasm of colon [facility] Start: 1988 Diabetes screen Diabetes screen [place], [place] Start: 1988 Screening for malignant neoplasm of breast Mammogram [facility] Start: 12-12-1967 DTaP/Tdap/Td vaccine (1 - Tdap) DTaP/Tdap/Td vaccine (1 - Tdap) [facility] Start: 1966 Hepatitis C screening [facility] Start: 1960 Depression screening using PHQ-9 (Patient Health Questionnaire 9) score [facility] Start: 12-12-1959 DTaP/Tdap/Td vaccine (1 - Tdap) DTaP/Tdap/Td vaccine (1 - Tdap) [place], [place] Start: 1958 HbA1c (Bld) [Mass fraction] A1C test (Diabetic or Prediabetic) [place] Start: 12-12-1951 History and physical examination, annual for health maintenance Wellness Visit [facility] Start: [birth year]-13-1951 COVID-19 Vaccine (#1) COVID-19 Vaccine (#1) [facility] Start: 1948 Hepatitis C screen Hepatitis C screen [place], [place] Start: 1948 Hepatitis C screening Hepatitis C screen [facility] Start: 1948 Screening for malignant neoplasm of colon [facility] Start: 1948 Screening for osteoporosis Dexa Scan [facility] Start: 1948 Tetanus vaccination Tetanus: Every 10yrs [facility] 12 lead ECG ECG 12 Lead ECG Routine Atrial fibrillation, unspecified type (HCC) 09/07/2023 8:45 AM EDT [facility] End: 08-29-2023 Basic metabolic 2000 panel - Serum or Plasma Basic metabolic panel Lab Routine Atrial fibrillation, unspecified type (HCC) 1 Occurrences starting 08/28/2022 until 08/29/2023 [facility] Work Phone: Comment on above: 1 Occurrences starting 08/28/2022 until 08/29/2023 End: 02-29-2024 Basic metabolic 2000 panel - Serum or Plasma Basic metabolic panel Lab Routine Atrial fibrillation, chronic (HCC) 1 Occurrences starting 02/28/2023 until 02/29/2024 [facility] Comment on above: 1 Occurrences starting 02/28/2023 until 02/29/2024 End: 07-22-2024 Basic metabolic 2000 panel - Serum or Plasma Basic metabolic panel Lab Routine Atrial fibrillation, unspecified type (HCC) 1 Occurrences starting 09/07/2023 until 07/22/2024 [facility] Comment on above: 1 Occurrences starting 09/07/2023 until 07/22/2024 Basic metabolic 2000 panel - Serum or Plasma Basic metabolic panel Lab Routine Atrial fibrillation, unspecified type (HCC) 09/07/2023 9:08 AM EDT [facility] End: 07-25-2025 Basic metabolic 2000 panel - Serum or Plasma Basic metabolic panel Lab Routine PAF (paroxysmal atrial fibrillation) (HCC) 1 Occurrences starting 07/29/2024 until 07/25/2025 [facility] Comment on above: 1 Occurrences starting 07/29/2024 until 07/25/2025 End: 02-29-2024 Complete blood count with white cell differential, manual CBC and differential Lab Routine Atrial fibrillation, chronic (HCC) 1 Occurrences starting 02/28/2023 until 02/29/2024 [facility] Work Phone: Comment on above: 1 Occurrences starting 02/28/2023 until 02/29/2024 End: 07-22-2024 Complete blood count with white cell differential, manual CBC and differential Lab Routine Atrial fibrillation, unspecified type (HCC) 1 Occurrences starting 09/07/2023 until 07/22/2024 [facility] Work Phone: Comment on above: 1 Occurrences starting 09/07/2023 until 07/22/2024 Complete blood count with white cell differential, manual CBC and differential Lab Routine Atrial fibrillation, unspecified type (HCC) 09/07/2023 9:08 AM EDT [facility] End: 07-25-2025 Complete blood count with white cell differential, manual CBC and differential Lab Routine PAF (paroxysmal atrial fibrillation) (HCC) 1 Occurrences starting 07/29/2024 until 07/25/2025 [facility] Work Phone: Comment on above: 1 Occurrences starting 07/29/2024 until 07/25/2025 End: 08-29-2023 CT Pulmonary Vein With Reconstructions 3D CT Pulmonary Vein With Reconstructions 3D Imaging Routine Atrial fibrillation, unspecified type (HCC) 1 Occurrences starting 08/28/2022 until 08/29/2023 [facility] Comment on above: 1 Occurrences starting 08/28/2022 until 08/29/2023 End: 03-08-2020 Culture, Urine Culture, Urine Microbiology Routine Complicated UTI (urinary tract infection) 1 Occurrences starting 03/08/2020 until 03/08/2020 [employer] Comment on above: 1 Occurrences starting 03/08/2020 until 03/08/2020 Culture, Urine [employer], [place] End: 02-28-2021 Culture, Urine Culture, Urine Microbiology Routine Dysuria 1 Occurrences starting 02/28/2021 until 02/28/2021 [employer] Work Phone: Comment on above: 1 Occurrences starting 02/28/2021 until 02/28/2021 End: 08-24-2021 Culture, Urine [employer] Work Phone: Comment on above: 1 Occurrences starting 08/24/2021 until 08/24/2021 End: 11-03-2022 Culture, Urine [facility] Comment on above: 1 Occurrences starting 11/03/2022 until 11/03/2022 End: 10-29-2023 Echocardiography Echocardiogram complete Echocardiography Routine Atrial fibrillation, unspecified type (HCC) Atrial fibrillation, chronic (HCC) 1 Occurrences starting 08/28/2022 until 10/29/2023 [facility] Work Phone: Comment on above: 1 Occurrences starting 08/28/2022 until 10/29/2023 EKG 12 Lead [employer] [place] LEFT ATRIAL APPENDAG E LIGATION LEFT ATRIAL APPENDAGE LIGATION atrial fibrillation [facility] End: 03-06-2022 [facility] KRISSY DIGITAL SCREEN BILATERAL [facility] Work Phone: Comment on above: 1 Occurrences starting 03/06/2022 until 03/06/2022 Immunizations Immunization Date Immunization Notes Care Provider Wesley chavez 01-17-2024 RSV, AREXVY, (age 60y+), PF, IM, 0.5mL Medardo Robles MD Work Phone: [facility] 04-16-2023 influenza virus vaccine, unspecified formulation ANAI GAITAN [facility] 04-16-2023 Influenza, FLUAD, (a ge 65 y+), IM, Quadv, 0.5mL Medardo Robles MD Work Phone: [facility] 06-30-2022 tetanus toxoid, redu fareed diphtheria toxoid, and acellular pertussis vaccine, adsorbed Rachel FLORES [facility] 02-16-2022 influenza virus vaccine, unspecified formulation Rachel FLORES [facility] 02-16-2022 Influenza, FLUAD, (a ge 65 y+), Adjuvanted, 0.5mL Medardo Robles MD Work Phone: [facility] 02-16-2022 SARS-CoV-2 (COVID-19 ) mRNAMUL.[id number] Rachel FLORES [facility] 01-09-2022 Pneumococcal, PCV20, PREVNAR 20, (age 18y+), IM, 0.5mL Medardo Robles MD Work Phone: [facility] 04-29-2021 zoster vaccine recombinant [facility] Room [facility] Work Phone: 04-19-2021 COVID-19, Moderna, Primary or Immunocompromised, PF, 100mcg/0.5mL Medardo Robles MD Work Phone: [employer] 04-18-2021 COVID-19, MODERNA BL UE border, Primary or Immunocompromised, (age 12y+), IM, 100 mcg/0.5mL [facility] Room [facility] [employer] Work Phone: 02-07-2021 zoster vaccine recombinant Medardo Robles MD Work Phone: [employer] Work Phone: 08-23-2020 COVID-19, Moderna, P F, 100mcg/0.5mL Medardo Robles MD Work Phone: [employer] Work Phone: 07-26-2020 COVID-19, Moderna, P F, 100mcg/0.5mL Medardo Robles MD Work Phone: [employer] Work Phone: 05-21-2020 SARS-CoV-2 (COVID-19 ) mRNA BNT-162b2 vax Rachel FLORES [facility] 02-18-2020 pneumococcal polysaccharide vaccine, 23 valent [employer] NEGATED: Highlighted row has not occurred!05-19-2019 influenza virus vaccine, live, attenuated, for intranasal use Rachel FLORES [facility] Payers Date Payer Category Payer Miscellaneous or Other [employer] COMM ERCIAL [id number] 2022 Unknown CHELAP RICHELLE NOVAK [id number] 2022-Present [phone] [address] [place] [address] [id number] 2021 Private Health Insurance [id number] 2014 Medicare xxxxxxxxxxx [id number] 2013 Medicare [id number] 1.13.385.2 .[id number] 1959 Medicare [id number] [id number] .7.3.829465.315 1959 Private Health Insurance [id number] 1.2.840.024731.1.13.239.2 .7.3.079120.315 1948 Unknown [id number] 2.16.840.1.883804.3.579.2 .593 1948 Unknown [id number] 2.16.840.1.131678.3.579.2 .59 1948 Unknown [id number] 2.16.840.1.687152.3.579.2 .903 1948 Unknown [id number] 2.16.840.1.296796.3.579.2 .903 1948 Unknown [id number] 2.16.840.1.640051.3.579.2 .903 1948 Unknown [id number] 2.16.840.1.826537.3.579.2 .903 1948 Unknown [id number] 2.16.840.1.686015.3.579.2 .903 1948 Unknown [id number] 2.16.840.1.513572.3.579.2 .903 1948 Unknown [id number] 2.16.840.1.543012.3.579.2 .727 1948 Unknown [id number] 2.16.840.1.097972.3.579.2 .727 1948 Unknown [id number] 2.16.840.1.294866.3.579.2 .727 1948 Unknown [id number] 2.16.840.1.622208.3.579.2 .174 1948 Unknown [id number] 2.16.840.1.965521.3.579.2 .174 1948 Unknown [id number] 2.16.840.1.529327.3.579.2 .174 1948 Unknown [id number] 2.16.840.1.758494.3.579.2 .174 1948 Unknown [id number] 2.16.840.1.605353.3.579.2 .174 1948 Unknown [id number] 2.16.840.1.203169.3.579.2 .174 1948 Unknown [id number] 2.16.840.1.220312.3.579.2 .174 1948 Unknown [id number] 2.16.840.1.638433.3.579.2 .174 1948 Unknown [id number] 2.16.840.1.320211.3.579.2 .174 1948 Unknown [id number] 2.16.840.1.120870.3.579.2 .174 1948 Unknown [id number] 2.16.840.1.329813.3.579.2 .903 1948 Unknown [id number] 2.16.840.1.502101.3.579.2 .903 1948 Unknown [id number] 2.16.840.1.396797.3.579.2 .727 1948 Unknown [id number] 2.16.840.1.183221.3.579.2 .727 1948 Unknown [id number] 2.16.840.1.682025.3.579.2 .727 Social History Date Type Detail Facility Start: 03-18-2019 End: 01-12-2025 Tobacco smoking status OHIS Never smoker [place] Start: 03-18-2019 End: 05-01-2024 Alcohol intake Current non-drinker of alcohol (finding) [place], [place] Start: 1950 Sex Assigned At Not on file [place], [place] Start: 03-08-2020 End: 08-22-2022 Tobacco use and exposure Never used [place] Start: 10-20-2020 End: 10-25-2022 History SDOH Financial [email or web address] Phone: Start: 10-20-2020 End: 10-25-2022 History SDOH Food Worry 1 [email or web address] Phone: Start: 10-24-2021 History SDOH Financial 5 [facility] [employer] Phone: Tobacco smoking status OHIS Tobacco smoking consumption unknown [facility] Start: 08-22-2022 End: 07-29-2024 Gender identity Not on file [facility] Start: 08-22-2022 End: 07-29-2024 Alcohol intake Lifetime non-drinker (finding) [facility] Start: 08-22-2022 Gender identity Identifies as female gender (finding) [facility] Start: 08-22-2022 Sexual orientation Heterosexual (fin ding) [facility] Start: 08-12-2022 End: 09-05-2022 Exposure to SARS-CoV-2 (event) Not sure [facility] Start: 08-22-2022 End: 07-29-2024 History of Social function [employer] Start: 04-26-2022 History SDOH Alcohol Std Drinks 0 [employer] Start: 10-25-2022 History SDOH Transport Non-Med 2 [facility] Tobacco smoking status Never [facility] How often to you hav e a drink containing alcohol? Never [employer] (I/We) worried whether (my/our) food would run out before (I/we) got money to buy more. Never true [facility] [facility] Sexual Orientation [facility] Start: 12-30-2018 Sex Female (finding) [facility] NEGATED: Highlighted rowStart: NINF History of tobacco use Passive smoker [employer] Medical Equipment Procedure Code Equipment Code Equipment Origin al Text Equipment Identifier Dates Device 27mm Watchman Flex - [id number] Start: 09-14-2022 Comment on above: Description: MARION Closure Perclose Prostyle - [id number] ([id number] FDA Start: 09-14-2022 Comment on above: Description: Femoral System Watchman Flex Procedure Charge - [id number] Start: 09-14-2022 Functional Status Date Assessment Result Facility 06-23-2024 Functional Status N/A [facility] 11-16-2023 Functional Status N/A [facility] 11-17-2022 Functional Status N/A [facility] Clinical Notes 08-16-2022 to 01-12-2025 Ximena [...] Follow these instructions at home: Medicines Take iyyr-pkl-ezyqxqm and prescription medicines only as told by [...] to keep your pee pale yellow. ?Take vjkw-fdd-ohqgsla or prescription medicines. ?Eat foods that are [...] provider. Document Revised: 01/05/2023 Document Reviewed: 01/05/2023 [employer] Patient Education 2023 [employer]. 01/12/2025 14:49:46 Laser Therapy for Kidney Stones [...] including vitamins, herbs, eye drops, creams, and ipzj-kjb-tzcmarn medicines. Any problems you or family members [...] unless your provider tells you to. ?Taking ldra-lcl-abysala medicines, vitamins, herbs, and supplements. Tests You [...] provider. Document Revised: 01/05/2023 Document Reviewed: 01/05/2023 [employer] Patient Education 2023 [employer]. Follow Up Care 06/23/2024 10:29:22 With:SANDRA SAMSON, Rachel Peña, URL Address: [address] [place] [phone] When: Unknown Comments:venkatesh Rubio URS, laser litho [facility] 01-12-2025 Note Patient Education Nephrology Laser [...] these instructions at home: Medicines ??? Take bmmw-fza-gujrglj and prescription medicines only as told by [...] keep your pee pale yellow. ? Take qory-mhs-aszboku or prescription medicines. ? Eat foods that [...] provider. Document Revised: 01/05/2023 Document Reviewed: 01/05/2023 [employer] Patient Education ? 2023 [employer]. Laser Therapy for Kidney Stones Laser therapy [...] including vitamins, herbs, eye drops, creams, and uugj-nts-ryrifxk medicines. ??? Any problems you or family [...] and drink. Thes (more content not included)... [facility] 07-29-2024 History of Present illness Narrative Structural Heart Clinic Visit [facility], Heart & Vascular 07/29/2024 Ximena Archuleta, SHAKE TABLE OPERATOR [address], 3rd Floor Medical Office Building [facility] [address] Patient: Sapna Breen Date of : 1950 (73 y.o.) Referring Provider: No ref. provider found PCP: Medardo Robles MD Chief Complaint: Follow-up (2 year LAAO f/u-- pt has no complaints today) Date of Service: 07/29/2024 Assessment and Plan: Atrial fibrillation/status post LAAO Watchman FLX Status post LAAO with Watchman FLX 09/14/2022 with a left atrial appendage occluder 27 mm device pump station operator Dr. Angulo. Has been compliant with [...] CBC and BMP today. 2. Follow-up with [facility] as needed 3. Continue to follow with Dr. Austin for her primary cardiology needs. It has been a pleasure caring for this patient. Please don't hesitate to reach out to my office directly with any questions or concerns. Follow-up: Return if symptoms worsen or fail to improve. Ximena Archuleta, MSN, SUPERVISOR [employer], SHAKE TABLE OPERATOR [facility] Physician Group P:[phone] F:[phone] History of Present Illness: Sapna Breen is [...] No increased bleeding from the access site. radial drill press operator for plastic was Dr. Angulo with co-collet making machine operator Dr. Mariscal DELMAR physician, Dr. Antonio. She is here for a 2-year post LAAO Watchman follow-up. Primary rn supplemental is Dr. Austin. Objective Review of Systems: All systems were reviewed and noted to be negative unless otherwise stated in HPI. Past Medical History: Diagnosis Date A-fib (HCC) Hyperlipidemia Hypertension Kidney stone Past Surgical History: Procedure Laterality Date BREAST SURGERY SECTION EP - INTERVENTION N/A 09/14/2022 Procedure: Left Atrial Appendage Closure; Surgeon: Pollo Angulo MD; Location: [facility] MOBILE APPLICATION TESTER; Service: Cardiovascular History reviewed. No pertinent family [...] TOTAL (0-100): ____100__ documented in this encounter [facility] 07-29-2024 Note Structural Heart Cli mona Visit [facility], Heart & Vascular 07/29/2024 Ximena Archuleta, SHAKE TABLE OPERATOR [address] [facility], 3rd Floor Medical Office [facility] [address] Patient: Sapna Breen Date of : 1950 (73 y.o.) Referring Provider: No ref. provider found PCP: Medardo Robles MD Chief Complaint: Follow-up (2 year LAAO f/u-- pt has no complaints today) Date of Service: 07/29/2024 Assessment and Plan: Atrial fibrillation/status post LAAO Watchman FLX Status post LAAO with Watchman FLX 09/14/2022 with a left atrial appendage occluder 27 mm device pump station operator Dr. Angulo. Has been compliant with [...] CBC and BMP today. 2. Follow-up with [facility] as needed 3. Continue to follow with Dr. Austin for her primary cardiology needs. It has been a pleasure caring for this patient. Please don't hesitate to reach out to my office directly with any questions or concerns. Follow-up: Return if symptoms worsen or fail to improve. Ximena Archuleta, MSN, SUPERVISOR DRIED YEAST, SHAKE TABLE OPERATOR [facility] P:[phone] F:[phone] ----- History of Present Illness: Sapna Breen [...] No increased bleeding from the access site. radial drill press operator for plastic was Dr. Angulo with co-collet making machine operator Dr. Mariscal DELMAR physician, Dr. Antonio. She is here for a 2-year post LAAO Watchman follow-up. Primary rn supplemental is Dr. Austin. Objective Review of Systems: All systems were reviewed and noted to be negative unless otherwise stated in HPI. Past Medical History: Diagnosis Date A-fib (HCC) Hyperlipidemia Hypertension Kidney stone Past Surgical History: Procedure Laterality Date BREAST SURGERY SECTION EP - INTERVENTION N/A 09/14/2022 Procedure: Left Atrial Appendage Closure; Surgeon: Pollo Angulo MD; Location: [facility]BILE APPLICATION TESTER; Service: Cardiovascular History reviewed. No pertinent family [...] 57 Ht 5' (more content not included)... [facility] 07-29-2024 Instructions Familia Roman RN - 07/29/2024 10:02 AM EDT How to contact your team Provider Pollo Angulo MD Nurse Familia Roman RN [phone] In case of an emergency please call 911 Refills When in need of a refill, please call your care team, or the office at [phone] Please include medication name, pharmacy name, and specify 30 or 90 day supply. Please check with your pharmacy within 24 hours of request for your refill. You must follow up as directed to continue current refills. Thank you documented in this encounter [facility] 06-23-2024 Hospital Discharge instructions Patient Education 06/23/2024 10:38:02 Kidney Stones, Rcuf-zi-Hbor Kidney Stones Kidney stones are rock-like masses [...] Follow these instructions at home: Medicines Take zhxr-inc-lzmmxzh and prescription medicines only as told by [...] provider. Document Revised: 12/29/2022 Document Reviewed: 12/29/2022 [employer] Patient Education 2023 [employer]. Follow Up Care 02/21/2024 14:26:57 With:DOREEN STEVE, ANAI Gottlieb, URL Address: [address] [place] [address] When:Within 6 Month(s) [facility]23[facility]24 Note Patient Education Urology [...] these instructions at home: Medicines ??? Take btsu-zfv-djajanm and prescription medicines only as told by [...] provider. Document Revised: 12/29/2022 Document Reviewed: 12/29/2022 [employer] Patient Education ? 2023 [employer]. [facility] 12-24-2023 Evaluation + Plan note Diagnostic Tests PendingUrine Culture 12/24/23 [facility] 11-16-2023 Hospital Discharge instructions Patient Education [...] include: ?8 oz (237 mL) of milk, iclrcfi-unpjgkgtudnc-snoka milk, and calcium-fortifiedfruit juice. Calcium-fortified means that [...] ?Spinach (cooked), rhubarb, beets, sweet potatoes, and Afghan chard. ?Peanuts. ?Potato chips, tajik fries, and baked potatoes with skin on. ?Nuts and nut products. ?Chocolate. If you regularly take a diuretic medicine, make sure to eat at least 1 or 2 servings of fruits or vegetables that are high in potassium each day. These include: ?Avocado. ?Banana. ?[place], prune, carrot, or tomato juice. ?Baked potato. [...] magnesium, fish oil, or vitamin B6. Take ytvm-ftb-cyrnrle and prescription medicines only as told by [...] Casseroles. Pizza. Lasagna. Frozen meals. Potato chips. Mosotho fries. The items listed above may not [...] provider. Document Revised: 08/17/2022 Document Reviewed: 08/17/2022 [employer] Patient Education 2022 [employer]. Follow Up Care 11/17/2022 10:51:02 With:SANDRA SAMSON, Rachel Peña, URL Address: [address] [place] [address]- When: Unknown [facility] 11-16-2023 Note Patient Education Nephrology Dietary [...] ? 8 oz (237 mL) of milk, agkwtuh-bdsccfczyzio-lfhqf milk, and calcium-fortifiedfruit juice. Calcium-fortified means that [...] Spinach (cooked), rhubarb, beets, sweet potatoes, and Afghan chard. ? Peanuts. ? Potato chips, tajik fries, and baked potatoes with skin on. ? Nuts and nut products. ? Chocolate. ? If you regularly take a diuretic medicine, make sure to eat at least 1 or 2 servings of fruits or vegetables that are high in potassium each day. These include: ? Avocado. ? Banana. ? [place], prune, carrot, or tomato juice. ? Baked [...] fish oil, or vitamin B6. ? Take gwyq-evy-yzdzyok and prescription medicines only as told by your health care provider. These include suppleme (more content not included)... [facility] 09-07-2023 History of Present illness Narrative Structural Heart Clinic Visit [facility], Heart & Vascular 09/07/2023 Ximena Archuleta, SHAKE TABLE OPERATOR [address] [facility] [address] Patient: Sapna Breen Date of : 1950 (72 y.o.) Referring Provider: No ref. provider found PCP: Medardo Robles MD Chief Complaint: Follow-up (1 year LAAO -no complaints ) Date of Service: 09/07/2023 Assessment and Plan: Atrial fibrillation/status post LAAO Watchman FLX Status post LAAO with Watchman FLX 09/14/2022 with a left atrial appendage occluder 27 mm device pump station operator Dr. Angulo. Has been compliant with [...] 1 year (around 09/06/2024). Ximena Archuleta, MSN, SUPERVISOR DRIED YEAST, SHAKE TABLE OPERATOR [facility] P:[phone] F:[phone] History of Present Illness: Sapna Breen is [...] No increased bleeding from the access site. radial drill press operator for plastic was Dr. Angulo with co-collet making machine operator Dr. Mariscal DELMAR physician, Dr. Antonio. She is here for a 1-year post LAAO Watchman follow-up. Primary rn supplemental is Dr. Austin. Objective Review of Systems: All systems were reviewed and noted to be negative unless otherwise stated in HPI. Past Medical History: Diagnosis Date A-fib (HCC) Hyperlipidemia Hypertension Kidney stone Past Surgical History: Procedure Laterality Date BREAST SURGERY SECTION EP - INTERVENTION N/A 09/14/2022 Procedure: Left Atrial Appendage Closure; Surgeon: Pollo Angulo MD; Location: [facility] MOBILE APPLICATION TESTER; Service: Cardiovascular History reviewed. No pertinent family [...] TOTAL (0-100): __100___ documented in this encounter [facility] 08-27-2023 Instructions Familia Roman RN - 08/27/2023 10:15 AM EDT How to contact your team Provider Pollo Angulo MD Nurse Familia Roman RN [phone] In case of an emergency please call 911 Refills When in need of a refill, please call your care team, or the office at [phone] Please include medication name, pharmacy name, and specify 30 or 90 day supply. Please check with your pharmacy within 24 hours of request for your refill. You must follow up as directed to continue current refills. Thank you documented in this encounter [facility] 03-20-2023 History of Present illness Narrative Structural Heart Clinic Visit [facility] Heart [facility] Vascular 03/20/2023 Ximena Archuleta, SHAKE TABLE OPERATOR [address] [facility] Medical Office [facility] [address] Patient: Sapna Breen Date of : 1950 (72 y.o.) Referring Provider: No ref. provider found PCP: Medardo Robles MD Chief Complaint: Follow-up (6 mo LAAO f/u pt has no complaints today) Date of Service: 03/20/2023 Assessment and Plan: Atrial fibrillation/status post LAAO Watchman FLX Status post LAAO with Watchman FLX 09/14/2022 with a left atrial appendage occluder 27 mm device pump station operator Dr. Angulo. Has been compliant with [...] 6 months (around 09/18/2023). Ximena Archuleta, MSN, SUPERVISOR DRIED YEAST, SHAKE TABLE OPERATOR [facility] P:[phone] F:[phone] History of Present Illness: Sapna Breen is [...] No increased bleeding from the access site. radial drill press operator for plastic was Dr. Angulo with co-collet making machine operator Dr. Mariscal DELMAR physician, Dr. Antonio. She is here for a 6-month post LAAO Watchman follow-up. Primary rn supplemental is Dr. Austin. Objective Review of Systems: All systems were reviewed and noted to be negative unless otherwise stated in HPI. Past Medical History: Diagnosis Date A-fib (HCC) Hyperlipidemia Hypertension Kidney stone Past Surgical History: Procedure Laterality Date BREAST SURGERY SECTION EP - INTERVENTION N/A 09/14/2022 Procedure: Left Atrial Appendage Closure; Surgeon: Pollo Angulo MD; Location: [facility] MOBILE APPLICATION TESTER; Service: Cardiovascular History reviewed. No pertinent family [...] of allergies, medications, Yung Index, and Modified [place] Scale has been completed. ____ will be meeting with . The patient has been provided with an educational folder including a [employer] booklet regarding understanding Afib, left atrial appendage, [...] TOTAL (0-100): ___100___ documented in this encounter [facility] 03-20-2023 Instructions Jack Escobar RN - 03/20/2023 9:21 AM EDT ..How to contact your Care Team: Provider: Pollo Angulo MD Nurse: Jack Escobar RN In case of an emergency please call 911. REFILLS: When in need for refills please call your care team or the office at [phone]. Please include medication name, pharmacy name, and specify 30-day or 90-day supply. Please check with your pharmacy within 24 hours of request for your refill. You must follow up as directed to continue current refills. Thank you documented in this encounter [facility] 03-02-2023 History of Present illness Narrative Returned call to pt regarding VM received requesting call back. Sapna states she has a CT scan scheduled 03/15 and wanted to make sure lab orders were in for pre-scan blood work needed. Informed Sapna orders are already in for labs needed prior to the scan and she can go to any [facility] lab to have drawn prior to the . Verbalizes understanding and thankful for call. documented in this encounter [facility] 11-17-2022 Hospital Discharge instructions Patient Education 11/17/2022 10:40:30 Kidney Stones, Qrgv-nj-Ieto Kidney Stones Kidney stones are rock-like masses [...] Follow these instructions at home: Medicines Take dmxn-lgg-gardhjk and prescription medicines only as told by [...] provider. Document Revised: 01/09/2022 Document Reviewed: 01/09/2022 [employer] Patient Education 2022 [employer]. Follow Up Care 08/23/2022 12:57:26 With:SANDRA SAMSON, Rachel Peña, URL Address: [address] [place] [address]- When:Within 1 Year(s) Comments:[employer] [facility] 11-06-2022 History of Present illness Narrative Structural Cardiology Returning Patient Clinic Visit [facility] Heart [facility] Vascular 11/06/2022 Ximena Archuleta, SHAKE TABLE OPERATOR [address] [facility] Medical Office [facility] [address] [facility], physician's office 11/06/2022 Patient: Sapna Breen Date of : 1950 (71 y.o.) Referring Provider: No ref. provider found PCP: Medardo Robles MD Chief Complaint: Follow-up (Patient has no new cardiac concerns today ) Date of Service: 11/06/2022 Assessment and Plan: Atrial fibrillation Status post LAAO with watchman 09/14/2022 with a left atrial appendage occluder 27 mm device pump station operator Dr. Adele Hernandez She has been [...] any issue. She does follow with primary rn supplemental, Dr. Austin. Plan: 1. She will continue [...] No follow-ups on file. Ximena Archuleta, MSN, SUPERVISOR DRIED YEAST, SHAKE TABLE OPERATOR [facility] P:[phone] F:[phone] History of Present Illness: Sapna Breen is [...] No increased bleeding from the access site. radial drill press operator for plastic was Dr. Angulo with co-collet making machine operator Dr. aMriscal DELMAR physician, Dr. Antonio Post procedure echocardiogram [...] Closure; Surgeon: Pollo Angulo MD; Location: [facility]; Service: Cardiovascular History reviewed. No pertinent family [...] BILITOT 0.5 09/11/2022 The ASCVD Risk score (lSim FUNEZ, et al., 2019) failed to calculate [...] TOTAL (0-100): __100____ documented in this encounter [facility] 10-26-2022 Instructions Jack Escobar RN - 10/26/2022 1:36 PM EDT ..How to contact your Care Team: Provider: Pollo Angulo MD Nurse: Jack Escobar RN In case of an emergency please call 911. REFILLS: When in need for refills please call your care team or the office at [phone]. Please include medication name, pharmacy name, and specify 30-day or 90-day supply. Please check with your pharmacy within 24 hours of request for your refill. You must follow up as directed to continue current refills. Thank you Post LAAO CT You are scheduled for a post LAAO CT scan, on ____03/15 at [facility]. Please arrive at the Short Term Care Unit at 845a . Your physician requires blood work prior to your scan, we will place an order for the blood work that may be performed at the [facility] lab of your choice within 1-2 [...] are properly hydrated. documented in this encounter [facility] 09-15-2022 Hospital course Narrative DISCHARGE SUMMARY Patient: Sapna Breen Account: [id number] Admitted: 09/14/2022 Discharge Date/Time: 09/15/2022 Clinical Summary [...] No increased bleeding from the access site. radial drill press operator for plastic was Dr. Angulo with co-collet making machine operator Dr. Mariscal DELMAR physician, Dr. [...] Your Medications These medications were sent to [id number] - [place], [place] - [address] [facility] [address] clopidogreL 75 mg tablet Physician(s) Family: Medardo Robles MD, , Address: [address] / [facility] [address] Follow Up: Kathya Archuleta CNP 11/06/22 10:30 a.m. Patient instructions, including activity, were given to the patient/family at discharge. Please see the After Visit Summary in the medical record for details. Time spent on discharge: < 30 minutes Completed by: Mandie Zayas on 09/15/22, 9:35 AM documented in this encounter [facility] 09-14-2022 Note Formatting of this n ote might be different from the original. Problem: Actual or potential alteration in health Goal: Absence of healthcare acquired conditions Outcome: Partially Met Goal: Knowledge of Interdisciplinary Plan of Care Outcome: Partially Met Goal: Knowledge of Enviroment Outcome: Partially Met [facility] 09-14-2022 Miscellaneous Notes Problem: Actual or [...] Outcome: Partially Met documented in this encounter [facility] 09-14-2022 Note Formatting of this n ote might be different from the original. Problem: Actual or potential alteration in health Goal: Absence of healthcare acquired conditions Outcome: Partially Met Goal: Knowledge of Interdisciplinary Plan of Care Outcome: Partially Met Goal: Knowledge of Enviroment Outcome: Partially Met [facility] 09-14-2022 Note CARDIAC CATHETERIZAT ION Date of Procedure: 09/14/22 Information Clerk Brokerage and Supervising Physician: Pollo Angulo MD Civil Designer: Austin Mariscal MD Name of Procedures: Percutaneous transcatheter closure of the left atrial appendage with Watchman FLX left atrial appendage occluder 27 mm device (CPT Code 72591, ICD 10 procedure code 42R01HZ) for the treatment of a patient with unspecified (I40.9) atrial fibrillation. (DRG code 273 or 274) Medications: General anesthesia provided by Dr. Paolo Cannon MD Indication for Procedure: A 71 y.o. female with history of atrial fibrillation. The patient has a CHADS score of 3 and cannot take fpc anticoagulation due to hematuria Prior to implantation of the device the patient met with Dr. Faustino Yi MD to discuss non-interventional, pharmacologic options to stroke prevention. No qualified Resident was available to assist in the case therefore due to the complexity,Austin Mariscal MD was utilized as my catalog library assistant Description of Procedure: Following informed consent, [...] exchanged out the Proglide sheath for a Webster sheath with a transseptal needle. Under fluoroscopic and echocardiographic images, the Danielito versacross transseptal needle was used to perform transseptal puncture across the inter-atrial septum. The Webster sheath was advanced into the left atrium and the dilator to dilate the septum and then removed from the body. Heparin was then administered for full anticoagulation with intermittent monitoring of ACT. The Webster sheath was exchanged out for a 14-Mosotho Atrite Watchman sheath, which was placed in the left atrium. A 6-Mosotho pigtail catheter was advanced into the sheath and the stiff wire was then removed. Under fluoroscopic and echocardiographic guidance, the pigtail catheter was then placed selectively in the left atrial appendage and multiple angiographic images were obtained. We then advanced the 14-Mosotho Atrite sheath into the left atrial appendage [...] of leak, the device was released. The 14-Mosotho sheath was removed and hemostasis was achieved [...] left atrial appendage occluder 27 mm; LOT# [id number] Summary: The following findings were noted on [...] and interpretation verified by Pollo Angulo MD [facility] 09-14-2022 Note CARDIAC CATHETERIZAT ION Date of Procedure: 09/14/22 Information Clerk Brokerage and Supervising Physician: Pollo Angulo MD Civil Designer: Austin Mariscal MD Name of Procedures: Percutaneous transcatheter closure of the left atrial appendage with Watchman FLX left atrial appendage occluder 27 mm device (CPT Code 12048, ICD 10 procedure code [id number]) for the treatment of a patient with unspecified (I40.9) atrial fibrillation. (DRG code 273 or 274) Medications: General anesthesia provided by Dr. Paolo Cannon MD Indication for Procedure: A 71 y.o. female with history of atrial fibrillation. 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 Faustnio Yi MD to discuss non-interventional, pharmacologic options to stroke prevention. No qualified Resident was available to assist in the case therefore due to the complexity,Austin Mariscal MD was utilized as my catalog library assistant Description of Procedure: Following informed consent, [...] exchanged out the Proglide sheath for a Webster sheath with a transseptal needle. Under fluoroscopic and echocardiographic images, the Danielito versacross transseptal needle was used to perform transseptal puncture across the inter-atrial septum. The Webster sheath was advanced into the left atrium and the dilator to dilate the septum and then removed from the body. Heparin was then administered for full anticoagulation with intermittent monitoring of ACT. The Webster sheath was exchanged out for a 14-Mosotho Atrite Watchman sheath, which was placed in the left atrium. A 6-Mosotho pigtail catheter was advanced into the sheath and the stiff wire was then removed. Under fluoroscopic and echocardiographic guidance, the pigtail catheter was then placed selectively in the left atrial appendage and multiple angiographic images were obtained. We then advanced the 14-Mosotho Atrite sheath into the left atrial appendage [...] of leak, the device was released. The 14-Mosotho sheath was removed and hemostasis was achieved [...] left atrial appendage occluder 27 mm; LOT# [id number] Summary: The following findings were noted on [...] TOTAL (0-100): __100____ documented in this encounter [facility] 09-14-2022 Attending History and physical note INTERVAL HISTORY AND PHYSICAL Patient Name: Sapna Breen Admit Date: [id number] MR #: [id number] : 1950 The H&P has been reviewed [...] acute renal insufficiency, need for emergency surgery, NC, stroke, or cardiac arrest/. Patient voiced understanding and agreed to proceed. Pollo Angulo MD 09/14/2022 10:09 AM Source Note - Pollo Angulo MD - 08/22/2022 8:14 AM EDT Structural Heart Disease Clinic Consult Heart & Vascular [facility] 08/22/2022 Pollo Angulo MD [address] [place] [address] Medical Office [facility] [address] Patient: Sapna Breen Date of [...] rate is well controlled on beta-brice. Her [id number] score is 3 giving an annual stroke [...] limited to risk of bleeding infection stroke NC or need for emergent open heart surgery. [...] no past medical history of any CAD NC stroke diabetes or known peripheral arterial disease Non-smoker lifelong Family history of CAD in her brother who had NC and mother had some heart disease that [...] found for: CHOL, LDLCALC, LDLDIRECT, TRIG, HDL [facility] 09-14-2022 History and physical note INTERVAL HISTORY AND PHYSICAL Patient Name: Sapna Breen Admit Date: [id number] MR #: [id number] : 1950 The H&P has been reviewed [...] acute renal insufficiency, need for emergency surgery, NC, stroke, or cardiac arrest/. Patient voiced understanding and agreed to proceed. Pollo Angulo MD 09/14/2022 10:09 AM Source Note - Pollo Angulo MD - 08/22/2022 8:14 AM EDT Structural Heart Disease Clinic Consult Heart & Vascular [facility] 08/22/2022 Pollo Angulo MD [address] [facility] Medical Office [facility] [address] Patient: Sanpa Breen Date of : 1950 (71 y.o.) [...] rate is well controlled on beta-brice. Her [id number] score is 3 giving an annual stroke [...] limited to risk of bleeding infection stroke NC or need for emergent open heart surgery. [...] no past medical history of any CAD NC stroke diabetes or known peripheral arterial disease Non-smoker lifelong Family history of CAD in her brother who had NC and mother had some heart disease that she is unsure of Objective Imaging: I independently reviewed the EKG and agree with the interpretation(s) with the following comments. NSR ECG 12 lead Final Result by Arron Vizcarra MA (08/22/2022 0753) Past Medical History: Diagnosis Date A-fib (HCC) [...] LDLDIRECT, TRIG, HDL documented in this encounter [facility] 09-14-2022 Hospital Discharge instructions Jack Escobar RN - 09/14/2022 8:52 AM EDT [facility] Hospital Discharge Instructions Your 45 day follow up clinic appointment with cardiology nurse practitioner Jeny Archuleta is scheduled for 11/06/22 at 1030am at the [facility], 3rd floor Heart and Vascular Clinic. Please arrive 15 minutes prior to your appointment time. Your 6 month post procedure office visit with cardiology nurse practitioner Jeny Archuleta has been scheduled for 10/31/23 at 930am at the [facility], 3rd floor Heart and Vascular Clinic. Please arrive 15 minutes prior to your appointment time. Your [address] scan has been scheduled for 03/15/23. Please arrive at the [facility] at 845am. Post LAAO CT Instructions: Your physician requires blood work prior to your scan, we will place an order for the blood work that may be performed at the [facility] lab of your choice within 1-2 [...] call, please call in for an update. ([phone]) Around 45 days: You will have a [...] after office hours or weekends, please call [phone] and ask for the rn supplemental director of restaurant operations for assistance. During the week days, you may call CHRISTI Santiago at the office at [phone]. documented in this encounter [facility] 09-08-2022 History of Present illness Narrative Pt called to review procedure with Dr. Adele PATTERSON with watchman device scheduled next week 09/14. All information listed below reviewed. Verbalizes understanding and denies any further questions. Thankful for call. Please complete required pre-procedure blood work on 09/11 or 09/12 at the [facility] main floor lab. No fasting is required for this blood work. 3-MARION Closure PRE-PROCEDURE INSTRUCTIONS Date: Check-In Time: 9am The check in time is the time that you need to be at the hospital. This time allows adequate preparation time prior to your procedure. It is not the time of the procedure. LOCATION: [facility]. Please park in the garage next to the medical office building. If needed, online tutor parking is available at the front entrance [...] by your nurse. documented in this encounter [facility] 08-28-2022 History of Present illness Narrative Pt called to review LAAO procedure information listed below. Verbalizes understanding and denies any further questions. 1-Your echocardiogram is scheduled for 09/05 at 2pm at the [facility], 3rd floor heart and vascular clinic. 2-Pre-CT You are scheduled for a pre-CT scan, on 09/05 at [facility]. Please arrive at the Short Term [...] pre-procedure blood work on 09/05 at the [facility] main floor lab. No fasting is required for this blood work. 3-MARION Closure PRE-PROCEDURE INSTRUCTIONS Date: ____09/14 Check-In Time: 9am The check in time is the time that you need to be at the hospital. This time allows adequate preparation time prior to your procedure. It is not the time of the procedure. LOCATION: [facility]. Please park in the garage next to the medical office building. If needed, online tutor parking is available at the front entrance [...] skin scrub at your local pharmacy called [facility]-you can get this over the counter, you can ask the pharmacist for direction on where to find this in the store. Please wash with this the night prior to your surgery and the morning of, but avoid your face and genital areas. 5.You must be accompanied by someone who is able to drive you home after the procedure. documented in this encounter [facility] 08-25-2022 History of Present illness Narrative [...] thankful for call. documented in this encounter [facility] 08-22-2022 History of Present illness Narrative Structural Heart Disease Clinic Consult Heart & Vascular [facility] 08/22/2022 Pollo Angulo MD [address] [facility] [place] [address] Patient: Sapna Breen Date of [...] rate is well controlled on beta-brice. Her [id number] score is 3 giving an annual stroke [...] limited to risk of bleeding infection stroke NC or need for emergent open heart surgery. [...] no past medical history of any CAD NC stroke diabetes or known peripheral arterial disease Non-smoker lifelong Family history of CAD in her brother who had NC and mother had some heart disease that she is unsure of Objective Imaging: I independently reviewed the EKG and agree with the interpretation(s) with the following comments. NSR ECG 12 lead Final Result by Arron Vizcarra MA (08/22/2022 [id number]) Past Medical History: Diagnosis Date A-fib (HCC) [...] LDLDIRECT, TRIG, HDL documented in this encounter [facility] 08-18-2022 Instructions Jack Escobar RN - 08/18/2022 9:07 AM EDT Please complete required pre-procedure blood work on at the [facility] main floor lab. No fasting is required for this blood work. 1-Your echocardiogram is scheduled for at the [facility], 3rd floor heart and vascular clinic. 2-Pre-CT You are scheduled for a pre-CT scan, on at [facility]. Please arrive at the Short Term [...] not the time of the procedure. LOCATION: [facility]. Please park in the garage next to the medical office building. If needed, online tutor parking is available at the front entrance [...] You may reach our nurse line at [phone] for any questions or concerns. Please leave a message and we will return your call within 24 hours, Sunday-Sunday. For billing questions, please contact your insurance and/or our central billing office at [phone]. Thank you for choosing [facility], we look forward to caring for you. documented in this encounter [facility] 08-16-2022 History of Present illness Narrative [facility] referral received from Dr. Yi for LAREX eval. Pt scheduled 08/22 w/ Dr. Angulo Records requested from pt PCP and [facility] (last echo 2015), Urology notes requested and labs. documented in this encounter [facility] Evaluation + Plan note Future Appointments Appointment Date:11/16/2023 09:45:00 AM Scheduled Provider:Rachel FLORES MD Location:[facility] Appointment Type:URO Office Visit Diagnostic Tests PendingElectrolyte Panel 11/17/22 [facility] Evaluation + Plan note Future Appointments Appointment Date:12/22/2024 09:40:00 AM Scheduled Provider:ANAI GAITAN PA-C Location:[facility] Appointment Type:URO Office Visit [facility] Evaluation + Plan note Future Appointments Appointment Date:12/22/2024 09:40:00 AM Scheduled Provider:ANAI GAITAN PA-C Location:[facility] Appointment Type:URO Office Visit Diagnostic Tests PendingCalculi Analysis Urinary 06/23/24 [facility] Evaluation note Diagnosis Dysuria documented in this encounter [email or web address] Phone: evaluation note* Diagnosis Visit for screening mammogram Other screening mammogram documented in this encounter [email or web address] Phone: evaluation note* Diagnosis Pain and swelling of toe of left foot documented in this encounter [email or web address] Phone: evaluation note* Diagnosis Dysuria Acute cystitis with hematuria Acute cystitis documented in this encounter [email or web address] Phone: evaluation note* Diagnosis Visit for screening mammogram Other screening mammogram documented in this encounter [employer] Phone: evaluation note* Diagnosis Atrial fibrillation, unspecified type (HCC)- Primary Essential hypertension Unspecified essential hypertension [facility] Diagnosis Atrial fibrillation, unspecified type (HCC)- Primary Atrial fibrillation, chronic (HCC) [facility] Diagnosis Atrial fibrillation, unspecified type (HCC)- Primary [facility] Diagnosis Pre-op testing- Primary Unspecified pre-operative examination Atrial fibrillation, chronic (HCC) [facility]* Diagnosis Atrial fibrillation, chronic (HCC)- Primary documented in this encounter [facility] note* Diagnosis Presence of Watchman left atrial appendage closure device- Primary PAF (paroxysmal atrial fibrillation) (HCC) Atrial fibrillation documented in this encounter [facility] note* Diagnosis Dysuria documented in this encounter [facility] [employer] note* Diagnosis Atrial fibrillation, chronic (HCC)- Primary Presence of Watchman left atrial appendage closure device [facility] Diagnosis Atrial fibrillation, chronic (HCC)- Primary [facility] Diagnosis Atrial fibrillation, unspecified type (HCC)- Primary Presence of Watchman left atrial appendage closure device [facility] Diagnosis Atrial fibrillation, unspecified type (HCC)- Primary [facility]* Diagnosis Paroxysmal atrial fibrillation (HCC) Atrial fibrillation Mitral valve insufficiency, unspecified etiology Mixed hyperlipidemia Primary hypertension Unspecified essential hypertension Vitamin D deficiency disease Unspecified vitamin D deficiency [facility] Diagnosis Paroxysmal atrial fibrillation (HCC) Atrial fibrillation Mitral valve insufficiency, unspecified etiology Mixed hyperlipidemia Primary hypertension Unspecified essential hypertension Vitamin D deficiency disease Unspecified vitamin D deficiency [facility]* Diagnosis Paroxysmal atrial fibrillation (HCC) Atrial fibrillation Mitral valve insufficiency, unspecified etiology Mixed hyperlipidemia Primary hypertension Unspecified essential hypertension Vitamin D deficiency disease Unspecified vitamin D deficiency [facility] Diagnosis Uric acid nephrolithiasis [facility]* Diagnosis Presence of Watchman left atrial appendage closure device- Primary PAF (paroxysmal atrial fibrillation) (HCC) Atrial fibrillation [facility] Narrative No data available for this section [facility] Hospital Discharge instructions No data available for this section [facility] progress note No data available for this section [facility] reason for visit Narrative* Auth/Cert Specialty Diagnoses / Procedures Referred By Sea palm Referred To Contact Diagnoses atrial fibrillation Procedures Left Atrial Appendage Closure Referral ID Status Reason Start Date Expiration Date Visits Re quested Visits Authorized [id number] 1 1 [facility] Summary Purpose Family History No Family [...] FoundDocuments on File Type Date Recorded 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 Advance Directives and Living Will Power of Netsuite Consultant Latest Code Status on File Code Status Date Activated Date Inactivated Comments Full Code 06/14/2015 10:10 AM 06/14/2015 1:00 PM Full Code 06/14/2015 8:09 AM 06/14/2015 10:10 AM Full Code 12/10/2012 7:01 AM 12/10/2012 5:08 PM Documents on File Type Date Recorded 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 Advance Directives and Living Will Power of Netsuite Consultant Latest Code Status on File Code Status Date Activated Date Inactivated Comments Full Code 06/14/2015 10:10 AM 06/14/2015 1:00 PM Full Code 06/14/2015 8:09 AM 06/14/2015 10:10 AM Full Code 12/10/2012 7:01 AM 12/10/2012 5:08 PM Documents on File Type Date Recorded 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 ACP-Advance Directive ACP-Power of Netsuite Consultant Documents on File Type Date Recorded 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 ACP-Advance Directive ACP-Power of Netsuite Consultant Healthcare Agents on File Name Relationship Healthcare Agent Relationship Communication Cledith Amburgey Spouse Primary Decision Maker [phone] (Home) Healthcare Agents on File Name Relationship Healthcare Agent Relationship Communication Cledith Amburgey Spouse Primary Decision Maker [phone] (Home) Healthcare Agents on File Name Relationship Healthcare Agent Relationship Communication Cledith Amburgey Spouse Primary Decision Maker Healthcare Agents on File Name Relationship Healthcare Agent Relationship Communication Cledith Amburgey Spouse Primary Decision Maker [phone] (Home) Latest Code Status on File Code [...] Procedures EKG 12 Lead Kyle Austin MD [address] [place] [address] Status Reason Specialty Diagnoses / Procedures Re ferred By Contact Referred To Contact Open Cardiology Diagnoses Elevated glucose Essential hypertension Hyperlipidemia, unspecified hyperlipidemia type Vitamin D deficiency disease Atrial fibrillation, unspecified type (HCC) Procedures EKG 12 Lead Kyle Austin MD [address] [place] [address] Status Reason Specialty Diagnoses / Procedures Referre d By Contact Referred To Contact Closed Radiology Diagnoses Visit for screening mammogram Procedures [facility] KRISSY DIGITAL SCREEN BILATERAL Medardo Robles MD [address] [place] [phone] Specialty Diagnoses / Procedures Referred By Contac t Referred To Contact Radiology Diagnoses Visit for screening mammogram Procedures [facility] KRISSY DIGITAL SCREEN BILATERAL Medardo Robles MD [address] [place] [address] Referral ID Status Reason Start Date Expiration Date Visits Re quested Visits Authorized [id number] Closed 01/24/2022 01/24/2023 1 1 Specialty Diagnoses / Procedures Referred By Contac t Referred To Contact Cardiology Diagnoses Atrial fibrillation, unspecified type (HCC) Procedures ECG 12 lead Pollo Angulo MD [address] [place] [address] Referral ID Status Reason Start Date Expiration Date V isits Requested Visits Authorized [id number] Authorized 08/22/2022 08/22/2023 1 1 Specialty Diagnoses / Procedures Referred By Contac t Referred To Contact Radiology Diagnoses Atrial fibrillation, unspecified type (HCC) Procedures CT Pulmonary Vein With Reconstructions 3D Pollo Angulo MD [address] [place] [phone] Referral ID Status Reason Start Date Expiration Date V isits Requested Visits Authorized [id number] Authorized 08/28/2022 08/28/2023 1 1 Specialty Diagnoses / Procedures Referred By Contac t Referred To Contact Cardiology Diagnoses Atrial fibrillation, unspecified type (HCC) Atrial fibrillation, chronic (HCC) Procedures Echocardiogram complete Pollo Angulo MD [address] [place] [phone] Referral ID Status Reason Start Date Expiration Date V isits Requested Visits Authorized [id number] Authorized 08/28/2022 08/28/2023 1 1 Specialty Diagnoses / Procedures Referred By Contac t Referred To Contact Radiology Diagnoses Atrial fibrillation, chronic (HCC) Procedures CT Pulmonary Vein With Reconstructions 3D Pollo Angulo MD [address] [place] [phone] Referral ID Status Reason Start Date Expiration Date V isits Requested Visits Authorized [id number] Pending Review 03/16/2023 03/15/2024 1 1 Specialty Diagnoses / Procedures Referred By Contac t Referred To Contact Cardiology Diagnoses Atrial fibrillation, chronic (HCC) Procedures ECG 12 lead Ximena Archuleta CNP [address] [place] [address] Referral ID Status Reason Start Date Expiration Date V isits Requested Visits Authorized [id number] Authorized 11/06/2022 11/06/2023 1 1 Specialty Diagnoses / Procedures Referred By Contac t Referred To Contact Cardiology Diagnoses Atrial fibrillation, unspecified type (HCC) Procedures ECG 12 lead Ximena Archuleta, SHAKE TABLE OPERATOR [address] [place] [address] Referral ID Status Reason Start Date Expiration Date V isits Requested Visits Authorized [id number] Authorized 03/20/2023 03/19/2024 1 1 Specialty Diagnoses / Procedures Referred By Contac t Referred To Contact Cardiology Diagnoses Paroxysmal atrial fibrillation (HCC) Mitral valve insufficiency, unspecified etiology Mixed hyperlipidemia Primary hypertension Vitamin D deficiency disease Procedures EKG 12 Lead Kyle Austin MD [address] [place] [address] Referral ID Status Reason Start Date Expiration Date Visits Re quested Visits Authorized [id number] Open 04/19/2024 04/19/2025 1 1 Assessments Diagnosis [...] section and content) DATE CREATED AUTHOR 04/23/[address] [facility] DATE CREATED AUTHOR AUTHOR'S ORGANIZ ATION 07/21/2021 [facility] DATE CREATED AUTHOR AUTHOR'S ORGANIZ ATION 09/03/2022 [facility] DATE CREATED AUTHOR AUTHOR'S ORGANIZ ATION 09/11/2023 [facility] DATE CREATED AUTHOR AUTHOR'S ORGANIZ ATION 12/25/2023 [facility] DATE CREATED AUTHOR AUTHOR'S ORGANIZ ATION 12/29/2023 [facility] DATE CREATED AUTHOR AUTHOR'S ORGANIZ ATION 06/20/2024 [facility] DATE CREATED AUTHOR AUTHOR'S ORGANIZ ATION 07/30/2024 [facility] DATE CREATED AUTHOR AUTHOR'S ORGANIZ ATION 08/02/2024 [facility] DATE CREATED AUTHOR AUTHOR'S ORGANIZ ATION 01/13/2025 [facility] DATE CREATED AUTHOR AUTHOR'S ORGANIZ ATION 01/16/2025 [facility] Reason for Visit (unrecogniz ed section and content) Status Reason Specialty Diagnoses / Procedures Referre d By Contact Referred To Contact Closed Radiology Diagnoses Visit for screening mammogram Procedures [facility] KRISSY DIGITAL SCREEN BILATERAL Medardo Robles MD [address] [place] [phone] Specialty Diagnoses / Procedures Referred By Contac t Referred To Contact Radiology Diagnoses Visit for screening mammogram Procedures [facility] KRISSY DIGITAL SCREEN BILATERAL Medardo Robles MD [address] [place] [address] Referral ID Status Reason Start Date Expiration Date Visits Re quested Visits Authorized [id number] Closed 01/24/2022 01/24/2023 1 1 Reason Comments [...] Care Teams (unrecognized sec tion and content) Sleep Manager Relationship Specialty Start Date End Date Medardo Robles MD [address] [place] [phone] PCP - General Family Medicine 06/10/13 Sleep Manager Relationship Specialty Start Date End Date Medardo Robles MD [address] [place] [address] PCP - General Family Medicine 06/10/13 Sleep Manager Relationship Specialty Start Date End Date Medardo Robles MD [address] [place] [address] PCP - General Family Medicine 06/10/13 Sleep Manager Relationship Specialty Start Date End Date Medardo Robles MD [address] [place] [address] PCP - General Family Medicine 06/10/13 Sleep Manager Relationship Specialty Start Date End Date Medardo Robles MD [address] [place] [address] PCP - General Family Medicine 08/15/22 Sleep Manager Relationship Specialty Start Date End Date Medardo Robles MD [address] [place] [address] PCP - General Family Medicine 08/15/22 Sleep Manager Relationship Specialty Start Date End Date Medardo Robles MD [address] [place] [address] PCP - General Family Medicine 08/15/22 Sleep Manager Relationship Specialty Start Date End Date Medardo Robles MD [address] [facility] [place] [address] PCP - General Family Medicine 08/15/22 Sleep Manager Relationship Specialty Start Date End Date Medardo Robles MD [address] [facility] [place] [address] PCP - General Family Medicine 08/15/22 Sleep Manager Relationship Specialty Start Date End Date Medardo Robles MD [address] [place] [address] PCP - General Family Medicine 08/15/22 Sleep Manager Relationship Specialty Start Date End Date Medardo Robles MD [address] [place] [address] PCP - General Family Medicine 08/15/22 Sleep Manager Relationship Specialty Start Date End Date Medardo Robles MD [address] [place] [address] PCP - General Family Medicine 08/15/22 Sleep Manager Relationship Specialty Start Date End Date Medardo Robles MD [address] [place] [phone] PCP - General Family Medicine 08/15/22 Sleep Manager Relationship Specialty Start Date End Date Medardo Robles MD [address] [place] [address] PCP - General Family Medicine 08/15/22 Sleep Manager Relationship Specialty Start Date End Date Medardo Robles MD [address] [place] [address] PCP - General Family Medicine 08/15/22 Sleep Manager Relationship Specialty Start Date End Date Medardo Robles MD [address] [place] [place] [address] PCP - General Family Medicine 06/10/13 Sleep Manager Relationship Specialty Start Date End Date Medardo Robles MD [address] [place] [address] PCP - General Family Medicine 08/15/22 Sleep Manager Relationship Specialty Start Date End Date Medardo Robles MD [address] [place] [address] PCP - General Family Medicine 08/15/22 Sleep Manager Relationship Specialty Start Date End Date Medardo Robles MD [address] [place] [address] PCP - General Family Medicine 08/15/22 Sleep Manager Relationship Specialty Start Date End Date Medardo Robles MD [address] [place] [phone] PCP - General Family Medicine 08/15/22 Sleep Manager Relationship Specialty Start Date End Date Medardo Robles MD [address] [place] [phone] PCP - General Family Medicine 06/10/13 Sleep Manager Relationship Specialty Start Date End Date Medardo Robles MD [address] [place] [phone] PCP - General Family Medicine 06/10/13 Sleep Manager Relationship Specialty Start Date End Date Medardo Robles MD [address] [place] [address] PCP - General Family Medicine 06/10/13 Sleep Manager Relationship Specialty Start Date End Date Medardo Robles MD [address] [place] [address] PCP - General Family Medicine 06/10/13 Sleep Manager Relationship Specialty Start Date End Date Medardo Robles MD [address] [place] [address] PCP - General Family Medicine 06/10/13 Sleep Manager Relationship Specialty Start Date End Date Medardo Robles MD [address] [place] [address] PCP - General Family Medicine 08/15/22 Scheduled [...] PLACED TUBE OR TUBE less than 14 [place]. To administer dissolved tablet(s) mix with 4 [...] BE BASED ON THE PRIMARY CLINICAL RECORDS. [employer] provides no warranty or guarantee of the accuracy or completeness of information in this document.
[2025-01-29] MEDS: SCOPOLAMINE 1 MG/3 DAYS TRANSDERM PATCH 1 PATCH TD (08:08)
[2025-01-29] MEDS: FAMOTIDINE/PF 20 MG/2 ML VIAL IV (08:08)
[2025-01-29] MEDS: CIPROFLOXACIN 400 MG/200 ML D5W PREMIX 200 MG IV (09:01)
--- NOTE | 2025-01-29 09:59 | PM.URSON ---
Urology Surgery Operative Note Operative Note Procedure Date: 01/29/25 Time Out Performed: yes Pre-op Diagnosis: Right nephrolithiasis Post-op Diagnosis: same as pre-op Procedures performed: 1. Cystoscopy. 2. Right ureteroscopy. 3. Right pyeloscopy. 4. Right renal stone basket extraction. 5. Thulium laser lithotripsy of right renal calculus. 6. Placement of 6 [place] variable length right ureteral stent Anesthesia: RAJI Primary Surgeon: Jason Vargas Complications: None Estimated blood loss (mL): 5 Findings: 1. Upper pole Hal's plaques formation. 2. Large jagged stone in the lower pole calyx. 3. 3 to 4 mm stone in the midpole calyx. Specimens: Midpole renal stone Drains: 6 [place] variable length right ureteral stent Indications for Procedures: This lady has recurrent bilateral nephrolithiasis. She now presents for definitive ureteroscopic laser lithotripsy and possible right stent placement. She has signed an informed consent after risks were explained. Detailed description of Procedure: The patient was brought to the operating room and placed on the operating room table in the supine position. SCDs were placed on the lower extremities and turned on and functioning during the entire case. Timeout was done by all parties in the room. We all agreed upon the patient's identification and the planned procedures for this patient. Genn. anesthesia was then administered. The patient was then repositioned into the modified dorsal lithotomy position. All pressure points were satisfactorily padded. Genitalia were sterilely prepped and draped in usual fashion. I started by passing a 22 [place] Olympus cystoscope per urethra and into the bladder. Careful panendoscopy in the bladder revealed no evidence of any tumors, stones or foreign bodies. I then passed a Glidewire through the scope and cannulated the right ureter and got the wire up into the kidney. The scope was removed. I then passed a 10/12 [place] ureteral access sheath over the wire and up to the L5 position. The stylette and wire were then removed. I then passed a flexible ureteroscope through the access sheath and into the ureter. I ascended up the ureter and then went into the kidney. I started in the upper pole calyces. I scoped into all of them. I did find a few Hal's plaques. There was a erin byron stone which was still embedded. In the midpole calyces there was 1 more Hal's plaque and a free-floating stone. In the lower pole calyces there was only a sizable jagged stone which seemed to be about 1 cm in length. I started in the midpole and passed a 0 tip nitinol basket and grasped the stone and extracted it out. It was sent for stone analysis. I then turned my attention to the lower pole stone. I passed a 200 Angstrom laser fiber through the scope. I used the dusting mode at 7 W and then up to 10 W max. I entirely dusted the stone. No visible stone was remaining upon completion. The guidewire was then passed through the scope and the scope and sheath were then removed. I then backloaded the cystoscope over the wire and passed it into the bladder. A 6 [place] variable length stent was passed over the wire up into the kidney. The wire was removed and there were good curls in the kidney and in the bladder. The bladder was drained of its contents and the scope was then removed. The anesthetic was then reversed. She was then transferred to a [facility] bed and wheeled to PACU in stable condition.
[2025-01-29] MEDS: SOLIFENACIN SUCCINATE 10 MG TABLET PO (10:43)
== END 2025-01-29 13:40 | disposition home or self-care (01) ==
LOC: SURGOUT 07:30
PROVIDERS: Visit Provider Urology
PROC: (CPT 52356; principal; 2025-01-29 09:00)
DX: N20.0 Calculus of kidney (principal); I48.91 Unspecified atrial fibrillation; Z79.01 Long term (current) use of anticoagulants; I11.9 Hypertensive heart disease without heart failure; I43 Cardiomyopathy in diseases classified elsewhere
CPT/HCPCS: 52356; 36415; 74420; 76000; 82365; 99999; J0744; J1100; J1200; J1453; J2405; J2704; J3010; J3490